=== PATIENT | male | born 1960 | race Two or more races ===

== ENCOUNTER 2018-04-24 23:25 | Inpatient (IN) | payer MEDICAID ==
[~2018-04-24] VITALS: Ht 177.8 cm; Wt 77.1 kg
--- NOTE | 2018-04-24 23:29 | Emergency Room Report ---
History of Present Illness General Chief Complaint: Seizure Source: Family Member, EMS Present Illness HPI Is a 58-year-old male presented after possible new onset seizure. Patient had no prior history of seizure disorder patient seizure for several minutes patient had prior history of alcohol abuse . Patient was brought in by EMS with spouse.Patient normally drinks daily. Patient been noted to have increased generalized tonic-clonic seizure. Patient reportedly had been trying to slow down his alcohol intake.Patient noted to have emesis earlier today with some red discoloration but no definite blood. Allergies: Coded Allergies: No Known Allergies (Unverified , 04/24/18) Patient History Past Medical History: see triage record Reviewed Nursing Documentation: PMH: Agreed; PSxH: Agreed Nursing Documentation-PMH Hx Hypertension: Yes Hx Diabetes: Yes History Of Psychiatric Problem: Yes - ETOH abuse Review of Systems All Other Systems: negative except mentioned in HPI Physical Exam Vital Signs Date Time Temp Pulse Resp B/P (MAP) Pulse Ox O2 Delivery O2 Flow Rate FiO2 04/24/18 23:15 112 18 178/101 99 Room Air Sp02 EP Interpretation: reviewed, normal General Appearance: alert, Chronically Ill Head: atraumatic ENT: normal ENT inspection, hearing grossly normal, normal voice Neck: normal inspection, full range of motion, supple, no bony tend Respiratory: normal inspection, lungs clear, normal breath sounds, no respiratory distress, no retraction, no wheezing Cardiovascular #1: no edema, tachycardia Gastrointestinal: normal inspection, normal bowel sounds, non tender, soft, no guarding, no hernia Genitourinary: no CVA tenderness Musculoskeletal: normal inspection, back normal, normal range of motion Neurologic: responsive, speech normal, other - postictal Psychiatric: normal inspection, judgement/insight normal, mood/affect normal Skin: normal inspection, normal color, no rash Medical Decision Making Diagnostic Impression: Primary Impression: Epileptic seizure, generalized Additional Impressions: Alcohol abuse Alcohol withdrawal Anemia ER Course Patient presented for seizure. Differential diagnosis include was not limited to alcohol withdrawal, syncope, electrolyte abnormality among others. Because of complexity of patient's case laboratory testing and imaging studies were ordered. CT imaging of the head showed no evidence of acute intracranial hemorrhage. Patient was given IV Ativan as well as IV Keppra. Patient was started on IV fluids. Patient noted to have no prior history of seizures. This is likely due to alcohol withdrawal however patient is also noted to be somewhat anemic. He was given IV Pepcid.Patient's was consented for blood. Labs Test 04/24/18 23:40 White Blood Count 8.8 K/UL (4.8-10.8) Red Blood Count 2.57 M/UL (4.70-6.10) Hemoglobin 7.9 G/DL (14.2-18.0) Hematocrit 23.7 % (42.0-52.0) Mean Corpuscular Volume 92 FL (80-99) Mean Corpuscular Hemoglobin 30.7 PG (27.0-31.0) Mean Corpuscular Hemoglobin Concent 33.3 G/DL (32.0-36.0) Red Cell Distribution Width 12.0 % (11.6-14.8) Platelet Count 193 K/UL (150-450) Mean Platelet Volume 6.2 FL (6.5-10.1) Neutrophils (%) (Auto) % (45.0-75.0) Lymphocytes (%) (Auto) % (20.0-45.0) Monocytes (%) (Auto) % (1.0-10.0) Eosinophils (%) (Auto) % (0.0-3.0) Basophils (%) (Auto) % (0.0-2.0) Prothrombin Time 10.9 SEC (9.30-11.50) Prothromb Time International Ratio 1.0 (0.9-1.1) Activated Partial Thromboplast Time 25 SEC (23-33) Sodium Level 136 MMOL/L (136-145) Potassium Level 4.4 MMOL/L (3.5-5.1) Chloride Level 103 MMOL/L (98-107) Carbon Dioxide Level 24 MMOL/L (21-32) Anion Gap 9 mmol/L (5-15) Blood Urea Nitrogen 15 mg/dL (7-18) Creatinine 1.6 MG/DL (0.55-1.30) Estimat Glomerular Filtration Rate 44.8 mL/min (>60) Glucose Level 89 MG/DL (74-106) Calcium Level 8.9 MG/DL (8.5-10.1) Total Bilirubin 0.7 MG/DL (0.2-1.0) Aspartate Amino Transf (AST/SGOT) 25 U/L (15-37) Alanine Aminotransferase (ALT/SGPT) 19 U/L (12-78) Alkaline Phosphatase 96 U/L (46-116) Troponin I 0.020 ng/mL (0.000-0.056) Total Protein 7.1 G/DL (6.4-8.2) Albumin 3.2 G/DL (3.4-5.0) Globulin 3.9 g/dL Albumin/Globulin Ratio 0.8 (1.0-2.7) Serum Alcohol < 3 mg/dL EKG Diagnostic Results Rate: tachycardiac Rhythm: NSR ST Segments: no acute changes Last Vital Signs Date Time Temp Pulse Resp B/P (MAP) Pulse Ox O2 Delivery O2 Flow Rate FiO2 04/24/18 23:15 112 18 178/101 99 Room Air Status: unchanged Disposition: ADMITTED INPATIENT Condition: Serious Aquilino Diehl MD Apr 24, 2018 23:29
[2018-04-24 23:30] VITALS: BP 178/101
[2018-04-24] MEDS ORDERED: levETIRAcetam 500mg/NS100ml 100 ML IVPB ONE ×2 (23:30→23:46)
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
[2018-04-25] VITALS (12 sets, daily range): BP systolic 127–173; BP diastolic 68–93
[2018-04-25 00:24] LABS: HEMATOCRIT 23.7 % (42.0-52.0); HEMOGLOBIN 7.9 G/DL (14.2-18.0); MEAN CORPUSCULAR VOLUME 92 FL (80-99); PLATELET COUNT 193 K/UL (150-450); RED BLOOD COUNT 2.57 M/UL (4.70-6.10); WHITE BLOOD COUNT 8.8 K/UL (4.8-10.8)
[2018-04-25 00:34] LABS: ANION GAP 9 mmol/L (5-15); BLOOD UREA NITROGEN 15 mg/dL (7-18); CALCIUM 8.9 MG/DL (8.5-10.1); CARBON DIOXIDE 24 MMOL/L (21-32); CHLORIDE 103 MMOL/L (98-107); CREATININE 1.6 MG/DL (0.55-1.30); POTASSIUM 4.4 MMOL/L (3.5-5.1); SODIUM 136 MMOL/L (136-145)
[2018-04-25 00:39] LABS: ALANINE AMINOTRANSFERASE 19 U/L (12-78); ALBUMIN 3.2 G/DL (3.4-5.0); ALBUMIN/GLOBULIN RATIO 0.8 (1.0-2.7); ALKALINE PHOSPHATASE 96 U/L (46-116); ASPARTATE AMINO TRANSFERASE 25 U/L (15-37); BILIRUBIN,TOTAL 0.7 MG/DL (0.2-1.0)
[2018-04-25] MEDS ORDERED: LORazepam Inj 2mg/ml 1ml ONE ×3 (02:29→05:00)
[2018-04-25] MEDS ORDERED: LORazepam Inj 2mg/ml 1ml IV ONE ×2 (03:30→04:45)
[2018-04-25 04:11] LABS: COLOR,URINE PALE YELLOW
[2018-04-25 04:12] LABS: APPEARANCE,URINE CLEAR; BILIRUBIN, URINE NEGATIVE (NEGATIVE); GLUCOSE, URINE (UA) NEGATIVE (NEGATIVE); KETONES,URINE 1+ (NEGATIVE); LEUKOCYTE ESTERASE ,URINE NEGATIVE (NEGATIVE); NITRITE,URINE NEGATIVE (NEGATIVE); PROTEIN,URINE 3+ (NEGATIVE); UROBILINOGEN,URINE NORMAL MG/DL (0.0-1.0)
[2018-04-25 04:44] LABS: HEMATOCRIT 22.2 % (42.0-52.0); HEMOGLOBIN 7.3 G/DL (14.2-18.0); MEAN CORPUSCULAR VOLUME 92 FL (80-99); PLATELET COUNT 161 K/UL (150-450); RED CELL DISTRIBUTION WIDTH 12.3 % (11.6-14.8); WHITE BLOOD COUNT 8.9 K/UL (4.8-10.8)
--- NOTE | 2018-04-25 07:27 | NUR ---
HAND-OFF: Report given to Kolby Moncada RN. Patient in stable condition. Plan of care endorsed.
--- NOTE | 2018-04-25 08:31 | NUR ---
ED Nurse Note: Received patient sleeping in bed. VSS but tachycardiac. skin clean and warm to touch.
--- NOTE | 2018-04-25 08:32 | NUR ---
ED Nurse Note: HERNESTO made aware that blood has not been ready yet. will follow up again.
--- NOTE | 2018-04-25 08:47 | NUR ---
ED Nurse Note: Reminded ERMD that we have not received admitting orders yet. ERMD will contact admitting doctor.
--- NOTE | 2018-04-25 09:10 | NUR ---
ED Nurse Note: Blood transfusion is about to initiate and body Temp was 99.6F. Informed ERMD and received verbal order that it is ok to start blood transfusion.
--- NOTE | 2018-04-25 09:15 | NUR ---
ED Nurse Note: blood transfusion initated in stable condition.
--- NOTE | 2018-04-25 09:20 | NUR ---
ED Nurse Note: Received TO from Dr. Joaquin. Ativan 1mg IVP Q2H. NPO except medications, Banana bag 75cc/hr, DVT prophylaxis, Repeat CBC if Hgb <8 contat certified alcohol and drug counselor, if pt has another seizure, contact Dr. Caicedo. Dr. Joaquin was informed that pt is getting blood transfusion at this moment and received verbal order that it is ok to start orders after blood transfusion completed.
--- NOTE | 2018-04-25 09:30 | NUR ---
ED Nurse Note: after 15 minutes of blood transfusion assessment done. 99.6F, 118/min, 139/71, 100% with room air. pt stable. blood transfusion rate increased to 200ml/hr.
--- NOTE | 2018-04-25 09:45 | NUR ---
ED Nurse Note: 98.3F, 167/77, 112/min, 96% with room air, 23/min. pt stable with blood transfusion rating at 200ml/hr.
--- NOTE | 2018-04-25 09:47 | NUR ---
ED Nurse Note: PA came down and assessed pt. PA was informed that nurse received orders from dr. Joaquin and will start orders after blood transfusion completed.
--- NOTE | 2018-04-25 10:00 | NUR ---
ED Nurse Note: halliether at bedside and was updated on pt's condition and how he got brought in.
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
--- NOTE | 2018-04-25 10:45 | NUR ---
ED Nurse Note: 1st unit of blood transfusion completed without adverse reaction. VS 98.6F, 162/91, 21/min, 95% with room air, 113/min. second bag of blood will be picked up.
[2018-04-25] MEDS ORDERED: LORazepam Inj 2mg/ml 1ml IV PRN (11:08)
--- NOTE | 2018-04-25 11:44 | NUR ---
ED Nurse Note: Checked rectal temp prior to initiating second unit of blood and it was 103F. reported to ERMD and received verbal order to hold second bag of blood. will administrate Tylenol via rectal.
[2018-04-25] MEDS ORDERED: Acetaminophen 650 MG SUPP RECTAL ONE (11:45)
--- NOTE | 2018-04-25 12:30 | NUR ---
ED Nurse Note: pt transferred to hospital bed from [facility] due to holding pt in ED.
--- NOTE | 2018-04-25 12:50 | NUR ---
ED Nurse Note: Left message to Dr. Joaquin that we are holding second bag of blood transfusion due to rectal temp 102.7F and if he wants nurse to do another CBC now and BS was 74 so if nurse can start any ivf. waiting for the response.
--- NOTE | 2018-04-25 13:04 | NUR ---
ED Nurse Note: Rechecked rectal temp again. 101.2F noted.
--- NOTE | 2018-04-25 13:32 | NUR ---
ED Nurse Note: Received TO from Dr. Joaquin to not to give the second bag of blood and start 1/2 NS 65cc per hour, repeat CBC now and let doctor Mirza know that pt developed fever after 1st bag of blood transfusion. will input the orders and carry them.
--- NOTE | 2018-04-25 13:50 | NUR ---
ED Nurse Note: Dr. Ortiz ID came and assessed pt. No new order received.
[2018-04-25] MEDS ORDERED: Thiamine 100mg IVPB (Q24H) IVPB ONE ×2 (14:00)
[2018-04-25] MEDS ORDERED: Folic Acid 1 MG, Magnesium Sulfate 2,000 MG, Multivitamin - 12 Injection 10 ML in Sodiu... IV ONE (14:00)
[2018-04-25] MEDS ORDERED: cefTRIAXone 1 GM in NS 55 ML IVPB ONE (14:00)
--- NOTE | 2018-04-25 14:15 | NUR ---
ED Nurse Note: Dr. Joaquin gave verbal order to hold banana bag for this moment. will return the medication back to pharmacy.
--- NOTE | 2018-04-25 14:31 | NUR ---
ED Nurse Note: Received verbal order to cancel Vit B1 iv by Dr. Joaquin.
--- NOTE | 2018-04-25 14:40 | NUR ---
ED Nurse Note: Contacted Dr Leal, steward/stewardess dining room to report pt developed fever after 1st bag of blood transfusion and his office gave me his number [phone]. called him and did not answer so left message. wating for him to respond.
[2018-04-25 14:43] LABS: BASOPHILS % (AUTO) 0.7 % (0.0-2.0); HEMATOCRIT 26.2 % (42.0-52.0); HEMOGLOBIN 8.7 G/DL (14.2-18.0); LYMPHOCYTES % (AUTO) 11.5 % (20.0-45.0); MEAN CORPUSCULAR VOLUME 94 FL (80-99); MONOCYTES % (AUTO) 9.7 % (1.0-10.0); NEUTROPHILS % (AUTO) 78.1 % (45.0-75.0); PLATELET COUNT 156 K/UL (150-450); RED BLOOD COUNT 2.79 M/UL (4.70-6.10); RED CELL DISTRIBUTION WIDTH 11.9 % (11.6-14.8); WHITE BLOOD COUNT 11.1 K/UL (4.8-10.8)
--- NOTE | 2018-04-25 14:51 | NUR ---
ED Nurse Note: Dr. Armendariz at bedside talking to the girlfriend.
--- NOTE | 2018-04-25 14:59 | NUR ---
ED Nurse Note: Report given to SHARLA Shoemaker.
--- NOTE | 2018-04-25 15:16 | NUR ---
ED Nurse Note: SHARLA Rasmussen received pt.
--- NOTE | 2018-04-25 15:22 | NUR ---
ADMISSION NOTES: Pt arrived to the unit via hospital bed, Pt has a RT F 22 running fluids of 1/2 NS at 65/hr will advise Md Rojas if he wants to continue. Pt arrived to the unit asleep as his eyes closed and he is breathing at 16 BPM, girl friend at bedside, girl friend states he drinks 2 beers a day and smoke 2 joints a day. Vitals WNL, girl friend states he is usually calm cooperative and vocal. According to ED they gave him 2mg of ativan PO.
--- NOTE | 2018-04-25 15:27 | NUR ---
ED Nurse Note: Dr. Leal responded to ER to get a blood transfusion reaction order. informed SHARLA Rasmussen the nurse who received pt to follow up.
[2018-04-25] MEDS: NovoLOG Insulin Flexpen SUBQ SCH ×2 (16:30→21:00)
--- NOTE | 2018-04-25 19:30 | NUR ---
NURSE NOTES: Report receieved from SHARLA Garrido. Pt is lying comfortably in semi-fowlers with no signs of distress. Pt is lethargic, respirations even and unlabored on room air. IV sites are patent and intact. Seizure precautions in place. Bed is at lowest position, brakes engaged, siderails x2, bed alarm on, and call light within reach. Pt is in stable condition; will continue to monitor.
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
--- NOTE | 2018-04-25 20:41 | NUR ---
NURSE NOTES: Pt's O2 sat is 90% on room air. Applied 1 L NC. Temp is also increased at 102 axillary without order for PRN tylenol. Left message with Dr. Joaquin regarding temperature; awaiting response.
--- NOTE | 2018-04-25 20:53 | NUR ---
NURSE NOTES: Dr. Joaquin ordered tylenol 650 PO or TX if patient cannot take oral medication. Orders noted and carried out. Also left message with Dr. Lauryn Ortiz regarding patient temp; awaiting response.
[2018-04-25] MEDS: cefTRIAXone 2 GM in D5W 55 ML IVPB SCH (21:28)
[2018-04-25] MEDS: Pantoprazole Inj IVP SCH (21:28)
[2018-04-25] MEDS: Acetaminophen 650 MG SUPP RECTAL PRN (21:29)
[2018-04-25] MEDS ORDERED: Vancomycin 1.5gm Premix IVPB ONE (22:00)
--- NOTE | 2018-04-25 23:52 | NUR ---
NURSE NOTES: Pt's temp still elevated at 102.5 axillary. Ice packs put under patient's arms. Too early to give tylenol to patient. Spoke with Dr. German Ortiz regarding pt's temperature throughout the night. No new orders given.
[2018-04-26] VITALS (7 sets, daily range): BP systolic 130–158; BP diastolic 71–96
[2018-04-26] MEDS: Acetaminophen 650 MG SUPP RECTAL PRN (01:33)
--- NOTE | 2018-04-26 02:47 | NUR ---
HAND-OFF: Report given to SHARLA Landa. Pt is in stable condition; plan of care endorsed.
--- NOTE | 2018-04-26 02:50 | NUR ---
NURSE NOTES: Received report from Marcela Hairston RN. Patient in bed asleep with no S/S of acute pain or distress noted with family at bedside asleep. Kept clean, dry and comfortable in bed. IV line intact and patent SL, placed on continuous cardiac monitoring per protocol. 02 at 95-96% on RA with no S/S of respiratory distress. Safety precaution in place; siderails x3 up, call light within reach, bed in lowest position, brakes and alarm on at all times. Needs and wants anticipated and attended. Will continue plan of care and monitor for any changes noted
[2018-04-26] MEDS: NovoLOG Insulin Flexpen SUBQ SCH ×4 (06:28→20:37)
[2018-04-26 06:40] LABS: BASOPHILS % (AUTO) 0.7 % (0.0-2.0); HEMATOCRIT 25.9 % (42.0-52.0); HEMOGLOBIN 8.6 G/DL (14.2-18.0); LYMPHOCYTES % (AUTO) 6.1 % (20.0-45.0); MEAN CORPUSCULAR VOLUME 94 FL (80-99); MONOCYTES % (AUTO) 9.3 % (1.0-10.0); NEUTROPHILS % (AUTO) 83.8 % (45.0-75.0); PLATELET COUNT 157 K/UL (150-450); RED BLOOD COUNT 2.76 M/UL (4.70-6.10); RED CELL DISTRIBUTION WIDTH 12.4 % (11.6-14.8); WHITE BLOOD COUNT 14.9 K/UL (4.8-10.8)
[2018-04-26 06:47] LABS: INR 1.1 (0.9-1.1)
--- NOTE | 2018-04-26 07:25 | NUR ---
HAND-OFF: Report given to Pavel Priest RN. Patient in bed asleep with family at bedside. Patient in stable condition, endorsed plan of care
[2018-04-26 07:26] LABS: ALANINE AMINOTRANSFERASE 22 U/L (12-78); ALBUMIN 3.3 G/DL (3.4-5.0); ALBUMIN/GLOBULIN RATIO 0.8 (1.0-2.7); ALKALINE PHOSPHATASE 88 U/L (46-116); ANION GAP 15 mmol/L (5-15); ASPARTATE AMINO TRANSFERASE 63 U/L (15-37); BILIRUBIN,TOTAL 1.4 MG/DL (0.2-1.0); BLOOD UREA NITROGEN 30 mg/dL (7-18); CARBON DIOXIDE 19 MMOL/L (21-32); CHLORIDE 103 MMOL/L (98-107); CREATININE 2.1 MG/DL (0.55-1.30); FERRITIN 373 NG/ML (8-388); POTASSIUM 4.2 MMOL/L (3.5-5.1); SODIUM 137 MMOL/L (136-145)
[2018-04-26 07:28] LABS: BILIRUBIN,DIRECT 0.3 MG/DL (0.0-0.3)
--- NOTE | 2018-04-26 07:31 | NUR ---
NURSE NOTES: Received report from SHARLA Landa. Patient in bed resting, patient responding to verbal stimulation, ST with HR 122. Patient on room air, no active s/s cardiac, respiratory distress noticed at this time. Patient has fever of 102.4 at this time, endorsed patient was having fever of [address] Lauryn Ortiz and Dr. Joaquin made aware. Patient on cooling mattress. Bed in lowest position, side rails upx3, call light within reach, family member at bed side. Will continue to monitor.
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
[2018-04-26 07:53] LABS: % IRON SATURATION 29 % (15-50); IRON 74 ug/dL (50-175); TOTAL IRON BINDING CAPACITY 252 ug/dL (250-450)
[2018-04-26] MEDS: Pantoprazole Inj IVP SCH ×2 (08:33→20:35)
[2018-04-26] MEDS: cefTRIAXone 2 GM in D5W 55 ML IVPB SCH ×2 (08:33→20:35)
[2018-04-26] MEDS ORDERED: Pantoprazole Inj IVP ONE (09:00)
--- NOTE | 2018-04-26 09:32 | Diagnostic Imaging Report ---
Indications: Altered mental status and seizures Technique: Spiral acquisitions obtained through the brain. Angled axial and coronal 5 x 5 mm slices were reconstructed. Total dose length product 1304 mGycm. CTDI vol(s) 70 mGy. Dose reduction achieved using automated exposure control Comparison: None. Findings: There is some image degradation due to motion artifact there is mild age-related prominence of the ventricles and extra-axial CSF spaces. There is mild periventricular deep white matter low-attenuation. No acute intracranial hemorrhage or edema. No mass effect nor midline shift. Intact calvarium. Visualized orbits and sinuses are unremarkable. Impression: Somewhat limited exam, due to motion artifact Mild age-related volume loss and periventricular white matter chronic ischemic changes, somewhat striking for patient's age. Negative for acute intracranial bleed or mass effect This agrees with the preliminary interpretation provided overnight by [facility] teleradiology service. The CT scanner at [facility] is accredited by the [employer] and the scans are performed using protocols designed to limit radiation exposure to as low as reasonably achievable to attain images of sufficient resolution adequate for diagnostic evaluation.
[2018-04-26] MEDS ORDERED: Vancomycin 750mg/NS 275ml IVPB SCH ×2 (10:00)
--- NOTE | 2018-04-26 10:41 | Infectious Diseases Prog Note ---
Assessment/Plan Assessment/Plan antibiotics : ceftriaxone A 1. fever 2. increasing leucocytosis 3. ? aspiration pneumonia 4. seizures 5. renal failure P 1. continue ceftriaxone 2. start flagyl 3. sputum cultures 4. cxr Subjective Constitutional: Denies: fever, chills Respiratory: Denies: shortness of breath, dry cough Gastrointestinal/Abdominal: Reports: nausea, vomiting, diarrhea Musculoskeletal: Denies: pain Allergies: Coded Allergies: No Known Allergies (Unverified , 04/24/18) Objective Vital Signs Last 24 Hour Vital Signs Date Time Temp Pulse Resp B/P (MAP) Pulse Ox O2 Delivery O2 Flow Rate FiO2 04/26/18 09:03 101.1 04/26/18 09:00 Room Air 04/26/18 08:00 102.4 100 20 130/71 (90) 94 04/26/18 04:00 98.8 124 20 152/86 (108) 95 04/26/18 04:00 122 04/26/18 02:03 102.0 04/26/18 00:00 102.0 118 20 135/81 (99) 95 04/26/18 00:00 115 04/25/18 21:00 Room Air 04/25/18 20:07 101.8 111 21 155/89 (111) 91 04/25/18 20:00 108 04/25/18 16:00 104 04/25/18 15:48 Room Air 04/25/18 15:00 101.7 103 24 169/92 96 Room Air 04/25/18 15:00 101.7 103 24 169/92 96 Room Air 04/25/18 14:49 102.0 103 18 166/79 96 Room Air 04/25/18 12:45 101.7 116 18 167/74 96 04/25/18 12:27 102.7 04/25/18 10:45 98.6 113 21 162/91 96 Room Air Height (Feet): 5 Height (Inches): 10.00 Weight (Pounds): 165 Respiratory/Chest: lungs clear Cardiovascular: normal rate, regular rhythm, no gallop/murmur Abdomen: soft, non tender Extremities: no edema Laboratory Tests Test 04/25/18 14:15 04/25/18 19:45 04/25/18 20:06 04/26/18 05:20 White Blood Count 11.1 K/UL (4.8-10.8) H 14.9 K/UL (4.8-10.8) H Red Blood Count 2.79 M/UL (4.70-6.10) L 2.76 M/UL (4.70-6.10) L Hemoglobin 8.7 G/DL (14.2-18.0) L 8.6 G/DL (14.2-18.0) L Hematocrit 26.2 % (42.0-52.0) L 25.9 % (42.0-52.0) L Mean Corpuscular Volume 94 FL (80-99) 94 FL (80-99) Mean Corpuscular Hemoglobin 31.0 PG (27.0-31.0) 31.2 PG (27.0-31.0) H Mean Corpuscular Hemoglobin Concent 33.1 G/DL (32.0-36.0) 33.3 G/DL (32.0-36.0) Red Cell Distribution Width 11.9 % (11.6-14.8) 12.4 % (11.6-14.8) Platelet Count 156 K/UL (150-450) 157 K/UL (150-450) Mean Platelet Volume 6.4 FL (6.5-10.1) L 6.4 FL (6.5-10.1) L Neutrophils (%) (Auto) 78.1 % (45.0-75.0) H 83.8 % (45.0-75.0) H Lymphocytes (%) (Auto) 11.5 % (20.0-45.0) L 6.1 % (20.0-45.0) L Monocytes (%) (Auto) 9.7 % (1.0-10.0) 9.3 % (1.0-10.0) Eosinophils (%) (Auto) 0.0 % (0.0-3.0) 0.0 % (0.0-3.0) Basophils (%) (Auto) 0.7 % (0.0-2.0) 0.7 % (0.0-2.0) Stool Occult Blood Negative (NEGATIVE) Sickle Cell Screen Pending Hemoglobin A Pending Hemoglobin A2 Pending Hemoglobin C Pending Hemoglobin F () Pending Hemoglobin S Pending Variant Hemoglobin Pending Hemoglobin Electrophoresis Interp Pending Hemoglobin Interpretation Pending Hemoglobin Solubility Pending Haptoglobin Pending Fibrinogen 333 mg/dL (200-400) Lactate Dehydrogenase 235 U/L (81-234) H HIV (1&2) Antibody Rapid Negative (NEGATIVE) Reticulocyte Count Pending Prothrombin Time 11.4 SEC (9.30-11.50) Prothromb Time International Ratio 1.1 (0.9-1.1) Activated Partial Thromboplast Time 20 SEC (23-33) L Sodium Level 137 MMOL/L (136-145) Potassium Level 4.2 MMOL/L (3.5-5.1) Chloride Level 103 MMOL/L (98-107) Carbon Dioxide Level 19 MMOL/L (21-32) L Anion Gap 15 mmol/L (5-15) Blood Urea Nitrogen 30 mg/dL (7-18) H Creatinine 2.1 MG/DL (0.55-1.30) H Estimat Glomerular Filtration Rate 32.7 mL/min (>60) Glucose Level 133 MG/DL (74-106) H Calcium Level 9.0 MG/DL (8.5-10.1) Magnesium Level 1.5 MG/DL (1.8-2.4) L Iron Level 74 ug/dL (50-175) Total Iron Binding Capacity 252 ug/dL (250-450) Percent Iron Saturation 29 % (15-50) Unsaturated Iron Binding 178 ug/dL (112-346) Ferritin 373 NG/ML (8-388) Total Bilirubin 1.4 MG/DL (0.2-1.0) H Direct Bilirubin 0.3 MG/DL (0.0-0.3) Aspartate Amino Transf (AST/SGOT) 63 U/L (15-37) H Alanine Aminotransferase (ALT/SGPT) 22 U/L (12-78) Alkaline Phosphatase 88 U/L (46-116) Total Protein 7.6 G/DL (6.4-8.2) Albumin 3.3 G/DL (3.4-5.0) L Globulin 4.3 g/dL Albumin/Globulin Ratio 0.8 (1.0-2.7) L Carcinoembryonic Antigen Pending Vitamin B12 Level 322 PG/ML (193-986) Folate 17.6 NG/ML (8.6-58.9) Thyroid Stimulating Hormone (TSH) 0.851 uiU/mL (0.358-3.740) Free Thyroxine 1.19 NG/DL (0.76-1.46) Current Medications Medications (Trade) Dose Ordered Sig/Bj Route PRN Reason Start Time Stop Time Status Last Admin Dose Admin Acetaminophen (Tylenol) 650 mg Q4H PRN ORAL Mild Pain/Temp > 100.5 04/25/18 21:00 05/25/18 20:59 04/26/18 08:33 Acetaminophen (Tylenol) 650 mg Q4H PRN RECTAL Mild Pain (Pain Scale 1-3) 04/25/18 21:00 05/25/18 20:59 04/26/18 01:33 Ceftriaxone Sodium 2 gm/ Dextrose 55 ml @ 110 mls/hr EVERY 12 HOURS IVPB 04/25/18 21:00 05/02/18 20:59 04/26/18 08:33 Dextrose (Dextrose 50%) 25 ml Q30M PRN IV Hypoglycemia 04/25/18 15:49 05/25/18 15:48 Dextrose (Dextrose 50%) 50 ml Q30M PRN IV Hypoglycemia 04/25/18 15:49 05/25/18 15:48 Insulin Aspart (NovoLOG) BEFORE MEALS AND HS SUBQ 04/25/18 16:30 05/25/18 16:29 Lorazepam (Ativan 2mg/ml 1ml) 1 mg Q2H PRN IV alcohol withdraw, seizure 04/25/18 11:08 05/02/18 11:07 Pantoprazole (Protonix) 40 mg EVERY 12 HOURS IVP 04/25/18 21:00 05/25/18 20:59 04/26/18 08:33 Sodium Chloride 1,000 ml @ 65 mls/hr [id number] IV 04/25/18 14:30 05/25/18 14:29 04/26/18 05:56 Vancomycin HCl (Vanco rx to dose) 1 ea DAILY PRN MISC Per rx protocol 04/25/18 19:30 05/25/18 19:29 Jermaine Enrique MD Apr 26, 2018 10:41
[2018-04-26] MEDS: metroNIDAZOLE 500mg tab ORAL SCH ×2 (11:18→21:31)
--- NOTE | 2018-04-26 11:30 | NUR ---
NURSE NOTES: Dr. Rojas at nursing station, made aware mg level of 1.5 and stated will take care. No order given at this time. Will continue to monitor.
--- NOTE | 2018-04-26 13:13 | Consultation ---
DATE OF CONSULTATION: 04/25/2018 ATTENDING PHYSICIAN: Farhan Joaquin M.D. REASON FOR CONSULT: Fever. HISTORY OF PRESENT ILLNESS: This is a 58-year-old male admitted last night because of tonic-clonic seizure. He was found to have severe anemia and tachycardia. After blood transfusion developed fever of 102.7. He has history of alcohol abuse. The patient tried recently to cut it back. The patient is lethargic, unresponsive. PAST MEDICAL HISTORY: He has history of hip fracture in the right side, has history of cholecystectomy. ALLERGIES: No known drug allergies. MEDICATIONS: Protonix, folic acid, magnesium sulfate, multivitamin, thiamine, lorazepam, sodium chloride. SOCIAL HISTORY: He is single. He lives with his girlfriend that is present in the hospital. Drink two can of beer daily tapering down from eight cans packs . He smokes marijuana. REVIEW OF SYSTEMS: Unobtainable. PHYSICAL EXAMINATION: VITAL SIGNS: Temperature 99.3, pulse 117, blood pressure 127/93. GENERAL: Appearance in no acute distress. Stating snoring. HEAD AND NECK: Pain conjunctiva. HEART: Tachycardic. LUNGS: Clear. ABDOMEN: Soft, nontender, nondistended. EXTREMITY: No edema. NEUROLOGIC: Nonresponsive. LABORATORY DATA: Sodium 136, potassium 4.4, chloride 103, bicarbonate 24, BUN 15, creatinine 1.6. AST, ALT, bilirubin are within normal limits. Albumin 2.2. Urine toxicology was positive for marijuana. Serum alcohol was less than 3, hemoglobin 7.3, hematocrit 22.2, platelets 161, WBC 8.9. UA showed, urineWBC of 0 to 2, rbc of 20 to 10. Blood 4+. IMPRESSION: Systemic inflammatory response syndrome or sepsis. The patient has fever and tachycardia and new onset seizure, acute renal failure, anemia, hypertension, alcohol abuse likely with withdrawal. RECOMMENDATION: We will start the patient on Rocephin. We will follow up the cultures at the end of my exam. I thank Dr. Joaquin for involving me in the care of this patient. James Ortiz M.D. DR: Nirav JOB#: [id number] CC: BREE
--- NOTE | 2018-04-26 13:14 | History and Physical Report ---
DATE OF ADMISSION: 04/25/2018 NOTE: POOR AUDIO HISTORY OF PRESENT ILLNESS: The patient comes in with new onset of seizures, history of alcohol abuse, initial slight tachycardia, low hemoglobin, azotemia. The patient has history of alcohol abuse, history of fever, and according to the girlfriend, also had tremor jerking whole body, lasted for 15 minutes, and also vomiting and was brought into the hospital. The patient is still lethargic . PAST MEDICAL HISTORY: NIDDM, hypertension, and kidney stone. PAST SURGICAL HISTORY: Hip surgery, kidney stone removed. ALLERGIES: No known allergies. MEDICATIONS: Unable to obtain. SOCIAL HISTORY: He has history of drug and alcohol abuse and history of smoking. REVIEW OF SYSTEMS: Unable to obtain, the patient is lethargic. PHYSICAL EXAMINATION: VITAL SIGNS: Temperature is , pulse 116, blood pressure 167/74. HEENT: PERRLA. CHEST: Clear to auscultation CARDIOVASCULAR: Regular rate and rhythm. GASTROINTESTINAL: Soft, nontender, and nondistended. No organomegaly. EXTREMITIES: No edema. Reflexes are equal on both sides. NEUROLOGIC: The patient is lethargic; however, does groan and moan, responds to noxious stimuli. Does not follow neurological exam. . LABORATORY DATA: WBC of 8.8, hemoglobin 7.9, and platelets 93. Sodium 137, potassium 4.4, and creatinine 1.6. . ASSESSMENT AND PLAN: Altered mental status, seizure, anemia, fever, , and vomiting. I have asked Dr. Greenfield, Dr. Jarrett, Dr. James Ortiz, Dr. Caicedo, Dr. Quinn, and Dr. Rojas to see the patient for the above-mentioned diagnoses and treatment. We will defer the LP decision to the neurologist and Infectious Diseases. Farhan Joaquin M.D. DR: Mirta JOB#: [id number] CC:
--- NOTE | 2018-04-26 13:38 | Consultation ---
Consult Note Consult Note asked to evaluate for renal failure Patient admitted with Sz Is a 58-year-old male presented after possible new onset seizure. Patient had no prior history of seizure disorder patient seizure for several minutes patient had prior history of alcohol abuse . Patient was brought in by EMS with spouse.Patient normally drinks daily. Patient been noted to have increased generalized tonic-clonic seizure. Patient reportedly had been trying to slow down his alcohol intake.Patient noted to have emesis earlier today with some red discoloration but no definite blood. No Known Allergies (Unverified , 04/24/18) Hx Hypertension: Yes Hx Diabetes: Yes History Of Psychiatric Problem: Yes - ETOH abuse interviewed examined data reviewed Assessment/Plan Renal failure- ? Acute on Chronic Anemia HTN by History MJ abuse DM / Proteinuria : Nephropathy Fever , etiology? avoid Nephrotoxics keep BP and BS in check [facility] kidney 2D echo Urine studies Per orders Deon Rojas MD Apr 26, 2018 13:38
--- NOTE | 2018-04-26 14:46 | NUR ---
NURSE NOTES: MILO Colunga made aware patient vomited two time today 04/26/18. Per Keanu, hildafran 4 mg IVP prn q6h. Order noted, entered, carried out.
[2018-04-26] MEDS: Thiamine HCl 100 MG in D5W 55 ML IVPB SCH (14:55)
--- NOTE | 2018-04-26 16:31 | Diagnostic Imaging Report ---
Indication: Acute renal failure Technique: Grayscale and duplex images of the kidneys, retroperitoneum, and bladder were obtained. Comparison: none Findings: Right kidney measures 10.4 cm in length. Left kidney measures 10.6 cm in length. Both kidneys demonstrate normal echogenicity. No hydronephrosis. There is a 1.9 cm cyst coming off of the interpolar region of the right kidney. There is trace perinephric fluid on the left. Normal inferior vena cava. Bladder is normal. Calculi to prostate volume 25 mL Impression: Negative for hydronephrosis Trace left perinephric fluid. This is a nonspecific finding, could indicate renal inflammation Incidental finding right renal cyst.
--- NOTE | 2018-04-26 17:25 | Diagnostic Imaging Report ---
Indication: Cough Technique: One view of the chest Comparison: none Findings: Extensive infiltrate is seen throughout the left mid and lower lung. The right lung and bilateral pleural spaces are clear. The heart size is upper limits normal. Impression: Left mid and lower lung infiltrate, likely pneumonia. Correlate with clinical findings
--- NOTE | 2018-04-26 17:30 | NUR ---
NURSE NOTES: Patient void once , 300ml, during the shift, bladder scan done 0 ml post-void residual. Will continue to monitor.
--- NOTE | 2018-04-26 19:44 | NUR ---
HAND-OFF: Report given to SHRALA Gifford.
--- NOTE | 2018-04-26 19:45 | NUR ---
NURSE NOTES: Got report from Carmenza MAGDALENO. Pt in stable condition. No s/s of distress noted. Pt resting in bed comfortably. bed in low and locked position, call light within reach, bedside table within reach. continue to monitor.
--- NOTE | 2018-04-26 20:26 | General Progress Note ---
Assessment/Plan Problem List: (1) Anemia ICD Codes: D64.9 - Anemia, unspecified SNOMED: 037493299 (2) Alcohol abuse ICD Codes: F10.10 - Alcohol abuse, uncomplicated SNOMED: 54343237 (3) Epileptic seizure, generalized ICD Codes: G40.309 - Generalized idiopathic epilepsy and epileptic syndromes, not intractable, without status epilepticus SNOMED: 79444981 Status: progressing Assessment/Plan ams fever anemia etoh abuse LP decision per neuro and id s/p generlized seizure Subjective ROS Limited/Unobtainable: Yes Allergies: Coded Allergies: No Known Allergies (Unverified , 04/24/18) Objective Last 24 Hour Vital Signs Date Time Temp Pulse Resp B/P (MAP) Pulse Ox O2 Delivery O2 Flow Rate FiO2 04/26/18 18:42 97.5 04/26/18 16:00 98.6 110 22 153/81 (105) 95 04/26/18 16:00 110 04/26/18 12:00 100.5 110 20 158/96 (116) 94 04/26/18 12:00 108 04/26/18 09:00 Room Air 04/26/18 08:00 102.4 100 20 130/71 (90) 94 04/26/18 08:00 123 04/26/18 04:00 98.8 124 20 152/86 (108) 95 04/26/18 04:00 122 04/26/18 02:03 102.0 04/26/18 00:00 102.0 118 20 135/81 (99) 95 04/26/18 00:00 115 04/25/18 21:00 Room Air Intake and Output 04/25/18 04/26/18 18:59 06:59 Intake Total 880 ml Output Total 300 ml Balance 580 ml Intake Oral 0 ml IV Total 380 ml Blood Product 500 ml Output Urine Total 300 ml # Voids 1 2 # Bowel Movements 1 2 Laboratory Tests 04/26/18 05:20: White Blood Count 14.9H, Red Blood Count 2.76L, Hemoglobin 8.6L, Hematocrit 25.9L, Mean Corpuscular Volume 94, Mean Corpuscular Hemoglobin 31.2H, Mean Corpuscular Hemoglobin Concent 33.3, Red Cell Distribution Width 12.4, Platelet Count 157, Mean Platelet Volume 6.4L, Neutrophils (%) (Auto) 83.8H, Lymphocytes (%) (Auto) 6.1L, Monocytes (%) (Auto) 9.3, Eosinophils (%) (Auto) 0.0, Basophils (%) (Auto) 0.7, Reticulocyte Count 1.0, Prothrombin Time 11.4, Prothromb Time International Ratio 1.1, Activated Partial Thromboplast Time 20L , Sodium Level 137, Potassium Level 4.2, Chloride Level 103, Carbon Dioxide Level 19L, Anion Gap 15, Blood Urea Nitrogen 30H, Creatinine 2.1H, Estimat Glomerular Filtration Rate 32.7, Glucose Level 133H, Calcium Level 9.0, Magnesium Level 1.5L, Iron Level 74, Total Iron Binding Capacity 252, Percent Iron Saturation 29, Unsaturated Iron Binding 178, Ferritin 373, Total Bilirubin 1.4H, Direct Bilirubin 0.3, Aspartate Amino Transf (AST/SGOT) 63H, Alanine Aminotransferase (ALT/SGPT) 22, Alkaline Phosphatase 88, C-Reactive Protein, Quantitative 3.6H, Total Protein 7.6, Albumin 3.3L, Globulin 4.3, Albumin/ Globulin Ratio 0.8L, Carcinoembryonic Antigen [Pending], Vitamin B12 Level 322, Folate 17.6, Thyroid Stimulating Hormone (TSH) 0.851, Free Thyroxine 1.19 Height (Feet): 5 Height (Inches): 10.00 Weight (Pounds): 163 General Appearance: lethargic, confused Farhan Joaquin MD Apr 26, 2018 20:26
--- NOTE | 2018-04-26 21:51 | General Progress Note ---
Assessment/Plan Assessment/Plan Assessment and Recs: # Anemia of chronic disease due to underlying chronic medical issues, multifactorial --> Anemia workup has been reviewed, ferritin 373 --> No evidence of hemolysis is noted, peripheral smear has been reviewed. --> Hgb goal >7. Transfuse prn. --> Given 2 units prbc on 04/25/18, had a reaction, transfusion reaction ordered --> Epogen or iron at this time is not particularly indicated --> Medications have been reviewed --> gi recs appreciated # Anemia due to alcohol withdrawal/myelosuppresion --> Monitor for withdrawal symptoms --> thimaine, folic acid, ivf, ativan prn ordered # Leukocytosis/Elevated white blood cell count, unspecified likely related to underlying stress reaction, smoking, or underlying infection (especially if bandemia is noted) --> have reviewed peripheral smear and bandemia/neutrophilia noted --> continue antibiotics if they have been started by ID team --> monitor for resolution # Alcohol abuse --> rec cessation # Epileptic seizure, generalized --> as per neuro # Drug abuse The timing of this note does not necessarily reflect the time of the patient was seen. Greatly appreciate consultation! Subjective Constitutional: Denies: no symptoms, chills, diaphoresis, fever, malaise, weakness, other HEENT: Denies: no symptoms, eye pain, blurred vision, tearing, double vision, ear pain, ear discharge, nose pain, nose congestion, throat pain, throat swelling, mouth pain, mouth swelling, other Cardiovascular: Denies: no symptoms, chest pain, edema, irregular heart rate, lightheadedness, palpitations, syncope, other Respiratory: Denies: no symptoms, cough, orthopnea, shortness of breath, SOB with excertion, SOB at rest, sputum, stridor, wheezing, other Gastrointestinal/Abdominal: Denies: no symptoms, abdomen distended, abdominal pain, black stools, tarry stools, blood in stool, constipated, diarrhea, difficulty swallowing, nausea, poor appetite, poor fluid intake, rectal bleeding , vomiting, other Neurologic/Psychiatric: Denies: no symptoms, anxiety, depressed, emotional problems, headache, numbness, paresthesia, pre-existing deficit, seizure, tingling, tremors, weakness, other Endocrine: Denies: no symptoms, excessive sweating, flushing, intolerance to cold, intolerance to heat, increased hunger, increased thirst, increased urine, unexplained weight gain, unexplained weight loss, other Allergies: Coded Allergies: No Known Allergies (Unverified , 04/24/18) Subjective 04/26: awake, comfortable, no acute distress. Objective Last 24 Hour Vital Signs Date Time Temp Pulse Resp B/P (MAP) Pulse Ox O2 Delivery O2 Flow Rate FiO2 04/26/18 18:42 97.5 04/26/18 16:00 98.6 110 22 153/81 (105) 95 04/26/18 16:00 110 04/26/18 12:00 100.5 110 20 158/96 (116) 94 04/26/18 12:00 108 04/26/18 09:00 Room Air 04/26/18 08:00 102.4 100 20 130/71 (90) 94 04/26/18 08:00 123 04/26/18 04:00 98.8 124 20 152/86 (108) 95 04/26/18 04:00 122 04/26/18 02:03 102.0 04/26/18 00:00 102.0 118 20 135/81 (99) 95 04/26/18 00:00 115 Intake and Output 04/25/18 04/26/18 18:59 06:59 Intake Total 880 ml Output Total 300 ml Balance 580 ml Intake Oral 0 ml IV Total 380 ml Blood Product 500 ml Output Urine Total 300 ml # Voids 1 2 # Bowel Movements 1 2 Laboratory Tests 04/26/18 05:20: White Blood Count 14.9H, Red Blood Count 2.76L, Hemoglobin 8.6L, Hematocrit 25.9L, Mean Corpuscular Volume 94, Mean Corpuscular Hemoglobin 31.2H, Mean Corpuscular Hemoglobin Concent 33.3, Red Cell Distribution Width 12.4, Platelet Count 157, Mean Platelet Volume 6.4L, Neutrophils (%) (Auto) 83.8H, Lymphocytes (%) (Auto) 6.1L, Monocytes (%) (Auto) 9.3, Eosinophils (%) (Auto) 0.0, Basophils (%) (Auto) 0.7, Reticulocyte Count 1.0, Prothrombin Time 11.4, Prothromb Time International Ratio 1.1, Activated Partial Thromboplast Time 20L , Sodium Level 137, Potassium Level 4.2, Chloride Level 103, Carbon Dioxide Level 19L, Anion Gap 15, Blood Urea Nitrogen 30H, Creatinine 2.1H, Estimat Glomerular Filtration Rate 32.7, Glucose Level 133H, Calcium Level 9.0, Magnesium Level 1.5L, Iron Level 74, Total Iron Binding Capacity 252, Percent Iron Saturation 29, Unsaturated Iron Binding 178, Ferritin 373, Total Bilirubin 1.4H, Direct Bilirubin 0.3, Aspartate Amino Transf (AST/SGOT) 63H, Alanine Aminotransferase (ALT/SGPT) 22, Alkaline Phosphatase 88, C-Reactive Protein, Quantitative 3.6H, Total Protein 7.6, Albumin 3.3L, Globulin 4.3, Albumin/ Globulin Ratio 0.8L, Carcinoembryonic Antigen [Pending], Vitamin B12 Level 322, Folate 17.6, Thyroid Stimulating Hormone (TSH) 0.851, Free Thyroxine 1.19 04/26/18 21:00: Random Vancomycin Level 10.8 Height (Feet): 5 Height (Inches): 10.00 Weight (Pounds): 163 Objective PE: General Appearance: well appearing, no apparent distress, alert Head: normocephalic EENT: PERRL/EOMI, normal ENT inspection Neck: supple Respiratory: normal breath sounds, no respiratory distress Cardiovascular: normal rate Gastrointestinal: normal inspection, non tender, soft, normal bowel sounds, non -distended Rectal: deferred Genitourinary: deferred Musculoskeletal: normal inspection, back normal Mirza Greenfield MD Apr 26, 2018 21:50
[2018-04-26] MEDS ORDERED: Vancomycin 1gm/D5W 275ml IVPB ONE ×2 (23:00)
[2018-04-27] VITALS (10 sets, daily range): BP systolic 89–190; BP diastolic 19–131
[2018-04-27] MEDS: metroNIDAZOLE 500mg tab ORAL SCH ×3 (05:33→22:12)
[2018-04-27] MEDS: NovoLOG Insulin Flexpen SUBQ SCH ×4 (06:12→22:00)
[2018-04-27 07:13] LABS: HEMATOCRIT 25.7 % (42.0-52.0); HEMOGLOBIN 8.7 G/DL (14.2-18.0); MEAN CORPUSCULAR VOLUME 94 FL (80-99); PLATELET COUNT 141 K/UL (150-450); RED BLOOD COUNT 2.75 M/UL (4.70-6.10); RED CELL DISTRIBUTION WIDTH 12.2 % (11.6-14.8); WHITE BLOOD COUNT 16.9 K/UL (4.8-10.8)
[2018-04-27 07:14] LABS: ALANINE AMINOTRANSFERASE 24 U/L (12-78); ALBUMIN 2.9 G/DL (3.4-5.0); ALBUMIN/GLOBULIN RATIO 0.7 (1.0-2.7); ALKALINE PHOSPHATASE 79 U/L (46-116); ANION GAP 15 mmol/L (5-15); ASPARTATE AMINO TRANSFERASE 65 U/L (15-37); BILIRUBIN,TOTAL 0.7 MG/DL (0.2-1.0); BLOOD UREA NITROGEN 41 mg/dL (7-18); CALCIUM 8.9 MG/DL (8.5-10.1); CARBON DIOXIDE 19 MMOL/L (21-32); CHLORIDE 105 MMOL/L (98-107); CHOLESTEROL 127 MG/DL (< 200); CREATININE 2.5 MG/DL (0.55-1.30); GAMMA GLUTAMYL TRANSPEPTIDASE 42 U/L (5-85); HDL CHOLESTEROL 65 MG/DL (40-60); PHOSPHORUS 2.7 MG/DL (2.5-4.9); POTASSIUM 3.9 MMOL/L (3.5-5.1); SODIUM 138 MMOL/L (136-145); TRIGLYCERIDES 87 MG/DL (30-150)
--- NOTE | 2018-04-27 07:15 | NUR ---
HAND-OFF: Report given to Carmenza Nolasco. endorsed plan of care.
--- NOTE | 2018-04-27 07:36 | NUR ---
NURSE NOTES: Received report from SHARLA Gifford. Patient in bed resting, open eyes spontaneously. ST with HR 110, no active s/s cardiac, respiratory distress noticed at this time, denies pain at this time. Family member at bedside. Endorsed need of OB stool collection, urine collection, no fever during the night. IV on right wrist 22G, IV fluid running at prescribed rate, asymptomatic, patent, intact. Bed in lowest position, side rails padded and upx3, call light within reach. Will continue to monitor.
--- NOTE | 2018-04-27 07:51 | NUR ---
CASE MANAGEMENT:REVIEW 04/27/18 SI: SEIZURE. ETOH ABUSE 98.4 110 20 145/82 97% ON RA WBC+16.9 H/H-8.7/25.7 PLT-141 BUN+41 CR+2.5 IS: IV THIAMINE Q24 IVF@75/HR IV ROCEPHIN Q12 IV PROTONIX Q12 FLAGYL PO Q8HRS IV ATIVAN Q2HRS PRN SEIZURE OR WITHDRAWAL : TELEMETRY STATUS DCP: PATIENT IS FROM HOME
[2018-04-27] MEDS: cefTRIAXone 2 GM in D5W 55 ML IVPB SCH (08:45)
[2018-04-27] MEDS: Pantoprazole Inj IVP SCH (08:45)
--- NOTE | 2018-04-27 10:06 | Infectious Diseases Prog Note ---
Assessment/Plan Assessment/Plan antibiotics : ceftriaxone A 1. fever improving 2. increasing leucocytosis 3. ? aspiration pneumonia 4. seizures 5. renal failure P 1. continue flagyl 2. d/c ceftriaxone 3. start cefepime 4. will follow up cultures Subjective ROS Limited/Unobtainable: Yes Constitutional: Denies: fever, chills Respiratory: Reports: dry cough; Denies: shortness of breath Gastrointestinal/Abdominal: Denies: nausea, vomiting, diarrhea Musculoskeletal: Denies: pain Allergies: Coded Allergies: No Known Allergies (Unverified , 04/24/18) Objective Vital Signs Last 24 Hour Vital Signs Date Time Temp Pulse Resp B/P (MAP) Pulse Ox O2 Delivery O2 Flow Rate FiO2 04/27/18 06:37 110 04/27/18 04:00 98.4 100 20 145/82 (103) 97 04/27/18 04:00 112 04/27/18 00:00 110 04/26/18 23:31 99.0 103 20 136/72 (93) 96 04/26/18 22:38 98.2 04/26/18 21:00 Room Air 04/26/18 20:00 104 04/26/18 20:00 98.6 100 20 140/78 (98) 95 04/26/18 18:42 97.5 04/26/18 16:00 98.6 110 22 153/81 (105) 95 04/26/18 16:00 110 04/26/18 12:00 100.5 110 20 158/96 (116) 94 04/26/18 12:00 108 Height (Feet): 5 Height (Inches): 10.00 Weight (Pounds): 163 Respiratory/Chest: lungs clear Cardiovascular: normal rate, regular rhythm, no gallop/murmur Abdomen: soft, non tender Extremities: no edema Microbiology Date/Time Source Procedure Growth Status 04/25/18 20:06 Blood Blood Culture - Preliminary NO GROWTH AFTER 24 HOURS Resulted 04/25/18 19:50 Blood Blood Culture - Preliminary NO GROWTH AFTER 24 HOURS Resulted Laboratory Tests Test 04/26/18 21:00 04/27/18 04:50 Random Vancomycin Level 10.8 ug/mL White Blood Count 16.9 K/UL (4.8-10.8) H Red Blood Count 2.75 M/UL (4.70-6.10) L Hemoglobin 8.7 G/DL (14.2-18.0) L Hematocrit 25.7 % (42.0-52.0) L Mean Corpuscular Volume 94 FL (80-99) Mean Corpuscular Hemoglobin 31.6 PG (27.0-31.0) H Mean Corpuscular Hemoglobin Concent 33.8 G/DL (32.0-36.0) Red Cell Distribution Width 12.2 % (11.6-14.8) Platelet Count 141 K/UL (150-450) L Mean Platelet Volume 6.6 FL (6.5-10.1) Neutrophils (%) (Auto) % (45.0-75.0) Lymphocytes (%) (Auto) % (20.0-45.0) Monocytes (%) (Auto) % (1.0-10.0) Eosinophils (%) (Auto) % (0.0-3.0) Basophils (%) (Auto) % (0.0-2.0) Neutrophils % (Manual) Pending Lymphocytes % (Manual) Pending Platelet Estimate Pending Platelet Morphology Pending Sodium Level 138 MMOL/L (136-145) Potassium Level 3.9 MMOL/L (3.5-5.1) Chloride Level 105 MMOL/L (98-107) Carbon Dioxide Level 19 MMOL/L (21-32) L Anion Gap 15 mmol/L (5-15) Blood Urea Nitrogen 41 mg/dL (7-18) H Creatinine 2.5 MG/DL (0.55-1.30) H Estimat Glomerular Filtration Rate 26.8 mL/min (>60) Glucose Level 163 MG/DL (74-106) H Hemoglobin A1c 6.4 % (4.3-6.0) H Uric Acid 8.6 MG/DL (2.6-7.2) H Calcium Level 8.9 MG/DL (8.5-10.1) Phosphorus Level 2.7 MG/DL (2.5-4.9) Magnesium Level 2.4 MG/DL (1.8-2.4) Total Bilirubin 0.7 MG/DL (0.2-1.0) Gamma Glutamyl Transpeptidase 42 U/L (5-85) Aspartate Amino Transf (AST/SGOT) 65 U/L (15-37) H Alanine Aminotransferase (ALT/SGPT) 24 U/L (12-78) Alkaline Phosphatase 79 U/L (46-116) Pro-B-Type Natriuretic Peptide 60038 pg/mL (0-125) H Total Protein 7.1 G/DL (6.4-8.2) Albumin 2.9 G/DL (3.4-5.0) L Globulin 4.2 g/dL Albumin/Globulin Ratio 0.7 (1.0-2.7) L Triglycerides Level 87 MG/DL (30-150) Cholesterol Level 127 MG/DL (< 200) LDL Cholesterol 48 mg/dL (<100) HDL Cholesterol 65 MG/DL (40-60) H Cholesterol/HDL Ratio 2.0 (3.3-4.4) L Thyroid Stimulating Hormone (TSH) 0.478 uiU/mL (0.358-3.740) Current Medications Medications (Trade) Dose Ordered Sig/Bj Route PRN Reason Start Time Stop Time Status Last Admin Dose Admin Acetaminophen (Tylenol) 650 mg Q4H PRN ORAL Mild Pain/Temp > 100.5 04/25/18 21:00 05/25/18 20:59 04/26/18 18:12 Acetaminophen (Tylenol) 650 mg Q4H PRN RECTAL Mild Pain (Pain Scale 1-3) 04/25/18 21:00 05/25/18 20:59 04/26/18 01:33 Ceftriaxone Sodium 2 gm/ Dextrose 55 ml @ 110 mls/hr EVERY 12 HOURS IVPB 04/25/18 21:00 05/02/18 20:59 04/27/18 08:45 Clonidine HCl (Catapres Tab) 0.1 mg Q4H PRN ORAL bp over 160 syst 04/26/18 14:00 05/26/18 13:59 Dextrose (Dextrose 50%) 25 ml Q30M PRN IV Hypoglycemia 04/25/18 15:49 05/25/18 15:48 Dextrose (Dextrose 50%) 50 ml Q30M PRN IV Hypoglycemia 04/25/18 15:49 05/25/18 15:48 Insulin Aspart (NovoLOG) BEFORE MEALS AND HS SUBQ 04/25/18 16:30 05/25/18 16:29 04/27/18 06:12 Lorazepam (Ativan 2mg/ml 1ml) 1 mg Q2H PRN IV alcohol withdraw, seizure 04/25/18 11:08 05/02/18 11:07 Metronidazole (Flagyl) 500 mg Q8HR ORAL 04/26/18 11:00 05/03/18 10:59 04/26/18 11:18 Ondansetron HCl (Zofran) 4 mg Q6H PRN IVP Nausea & Vomiting 04/26/18 14:50 05/26/18 14:49 04/26/18 14:54 Pantoprazole (Protonix) 40 mg EVERY 12 HOURS IVP 04/25/18 21:00 05/25/18 20:59 04/27/18 08:45 Sodium Chloride 1,000 ml @ 75 mls/hr [id number] IV 04/26/18 14:00 05/26/18 13:59 04/27/18 03:20 Thiamine HCl 100 mg/Dextrose 56 ml @ 112 mls/hr Q24H IVPB 04/26/18 15:00 05/26/18 14:59 04/26/18 14:55 Vancomycin HCl (Vanco rx to dose) 1 ea DAILY PRN MISC Per rx protocol 04/25/18 19:30 05/25/18 19:29 Jermaine Enrique MD Apr 27, 2018 10:06
[2018-04-27] MEDS ORDERED: Cefepime HCl 2 GM in D5W 55 ML IVPB SCH (11:00)
--- NOTE | 2018-04-27 11:21 | Nephrology Progress Note ---
Assessment/Plan Problem List: (1) Renal failure (ARF), acute on chronic (2) Diabetic nephropathy (3) Epileptic seizure, generalized (4) Alcohol abuse (5) Anemia Assessment Renal failure- ? Acute on Chronic Anemia HTN by History MJ abuse DM / Proteinuria : Nephropathy Fever , etiology? Plan avoid Nephrotoxics keep BP and BS in check AMIRA kidney noted 2D echo noted Urine studies pending fluid challenge Allopurinol and flomax PO monitor renal parameters Per orders Subjective ROS Limited/Unobtainable: No Constitutional: Reports: malaise, weakness Objective Objective Last 24 Hour Vital Signs Date Time Temp Pulse Resp B/P (MAP) Pulse Ox O2 Delivery O2 Flow Rate FiO2 04/27/18 09:00 Room Air 04/27/18 08:00 115 04/27/18 06:37 110 04/27/18 04:00 98.4 100 20 145/82 (103) 97 04/27/18 04:00 112 04/27/18 00:00 110 04/26/18 23:31 99.0 103 20 136/72 (93) 96 04/26/18 22:38 98.2 04/26/18 21:00 Room Air 04/26/18 20:00 104 04/26/18 20:00 98.6 100 20 140/78 (98) 95 04/26/18 18:42 97.5 04/26/18 16:00 98.6 110 22 153/81 (105) 95 04/26/18 16:00 110 04/26/18 12:00 100.5 110 20 158/96 (116) 94 04/26/18 12:00 108 Intake and Output 04/26/18 04/27/18 19:00 07:00 Output Total 300 ml Balance -300 ml Output Urine Total 300 ml # Voids 2 Laboratory Tests 04/26/18 21:00: Random Vancomycin Level 10.8 04/27/18 04:50: White Blood Count 16.9H, Red Blood Count 2.75L, Hemoglobin 8.7L, Hematocrit 25.7L, Mean Corpuscular Volume 94, Mean Corpuscular Hemoglobin 31.6H, Mean Corpuscular Hemoglobin Concent 33.8, Red Cell Distribution Width 12.2, Platelet Count 141L, Mean Platelet Volume 6.6, Neutrophils (%) (Auto) , Lymphocytes (%) ( Auto) , Monocytes (%) (Auto) , Eosinophils (%) (Auto) , Basophils (%) (Auto) , Neutrophils % (Manual) [Pending], Lymphocytes % (Manual) [Pending], Platelet Estimate [Pending], Platelet Morphology [Pending], Sodium Level 138, Potassium Level 3.9, Chloride Level 105, Carbon Dioxide Level 19L, Anion Gap 15, Blood Urea Nitrogen 41H, Creatinine 2.5H, Estimat Glomerular Filtration Rate 26.8, Glucose Level 163H, Hemoglobin A1c 6.4H, Uric Acid 8.6H, Calcium Level 8.9, Phosphorus Level 2.7, Magnesium Level 2.4, Total Bilirubin 0.7, Gamma Glutamyl Transpeptidase 42, Aspartate Amino Transf (AST/SGOT) 65H, Alanine Aminotransferase (ALT/SGPT) 24, Alkaline Phosphatase 79, Pro-B-Type Natriuretic Peptide [id number], Total Protein 7.1, Albumin 2.9L, Globulin 4.2, Albumin/Globulin Ratio 0.7L, Triglycerides Level 87, Cholesterol Level 127, LDL Cholesterol 48, HDL Cholesterol 65H, Cholesterol/HDL Ratio 2.0L, Thyroid Stimulating Hormone ( TSH) 0.478 Height (Feet): 5 Height (Inches): 10.00 Weight (Pounds): 163 General Appearance: no apparent distress, lethargic Cardiovascular: tachycardia Respiratory/Chest: decreased breath sounds Abdomen: distended Deon Rojas MD Apr 27, 2018 11:21
--- NOTE | 2018-04-27 11:43 | General Progress Note ---
Assessment/Plan Problem List: (1) Renal insufficiency ICD Codes: N28.9 - Disorder of kidney and ureter, unspecified SNOMED: 305769905, 740952017 (2) Marijuana abuse ICD Codes: F12.10 - Cannabis abuse, uncomplicated SNOMED: 45307955 (3) Anemia ICD Codes: D64.9 - Anemia, unspecified SNOMED: 629821428 (4) Alcohol abuse ICD Codes: F10.10 - Alcohol abuse, uncomplicated SNOMED: 44004153 (5) Epileptic seizure, generalized ICD Codes: G40.309 - Generalized idiopathic epilepsy and epileptic syndromes, not intractable, without status epilepticus SNOMED: 32276325 (6) Diabetic nephropathy ICD Codes: E11.21 - Type 2 diabetes mellitus with diabetic nephropathy SNOMED: 326555755 Assessment/Plan vomiting due to combination of DM and cannabinoid abuse add reglan repeat labs tight blood sugar control will fu Subjective ROS Limited/Unobtainable: Yes Allergies: Coded Allergies: No Known Allergies (Unverified , 04/24/18) Objective Last 24 Hour Vital Signs Date Time Temp Pulse Resp B/P (MAP) Pulse Ox O2 Delivery O2 Flow Rate FiO2 04/27/18 09:00 Room Air 04/27/18 08:00 115 04/27/18 06:37 110 04/27/18 04:00 98.4 100 20 145/82 (103) 97 04/27/18 04:00 112 04/27/18 00:00 110 04/26/18 23:31 99.0 103 20 136/72 (93) 96 04/26/18 22:38 98.2 04/26/18 21:00 Room Air 04/26/18 20:00 104 04/26/18 20:00 98.6 100 20 140/78 (98) 95 04/26/18 18:42 97.5 04/26/18 16:00 98.6 110 22 153/81 (105) 95 04/26/18 16:00 110 04/26/18 12:00 100.5 110 20 158/96 (116) 94 04/26/18 12:00 108 Intake and Output 04/26/18 04/27/18 19:00 07:00 Output Total 300 ml Balance -300 ml Output Urine Total 300 ml # Voids 2 Laboratory Tests 04/26/18 21:00: Random Vancomycin Level 10.8 04/27/18 04:50: White Blood Count 16.9H, Red Blood Count 2.75L, Hemoglobin 8.7L, Hematocrit 25.7L, Mean Corpuscular Volume 94, Mean Corpuscular Hemoglobin 31.6H, Mean Corpuscular Hemoglobin Concent 33.8, Red Cell Distribution Width 12.2, Platelet Count 141L, Mean Platelet Volume 6.6, Neutrophils (%) (Auto) , Lymphocytes (%) ( Auto) , Monocytes (%) (Auto) , Eosinophils (%) (Auto) , Basophils (%) (Auto) , Differential Total Cells Counted 100, Neutrophils % (Manual) 89H, Lymphocytes % (Manual) 6L, Monocytes % (Manual) 5, Eosinophils % (Manual) 0, Basophils % ( Manual) 0, Band Neutrophils 0, Platelet Estimate DecreasedL, Platelet Morphology Normal, Red Blood Cell Morphology Normal, Sodium Level 138, Potassium Level 3.9, Chloride Level 105, Carbon Dioxide Level 19L, Anion Gap 15 , Blood Urea Nitrogen 41H, Creatinine 2.5H, Estimat Glomerular Filtration Rate 26.8, Glucose Level 163H, Hemoglobin A1c 6.4H, Uric Acid 8.6H, Calcium Level 8.9 , Phosphorus Level 2.7, Magnesium Level 2.4, Total Bilirubin 0.7, Gamma Glutamyl Transpeptidase 42, Aspartate Amino Transf (AST/SGOT) 65H, Alanine Aminotransferase (ALT/SGPT) 24, Alkaline Phosphatase 79, Pro-B-Type Natriuretic Peptide 67405C, Total Protein 7.1, Albumin 2.9L, Globulin 4.2, Albumin/Globulin Ratio 0.7L, Triglycerides Level 87, Cholesterol Level 127, LDL Cholesterol 48, HDL Cholesterol 65H, Cholesterol/HDL Ratio 2.0L, Thyroid Stimulating Hormone ( TSH) 0.478 Height (Feet): 5 Height (Inches): 10.00 Weight (Pounds): 163 General Appearance: alert EENT: normal ENT inspection Neck: supple Cardiovascular: normal rate Respiratory/Chest: decreased breath sounds Abdomen: normal bowel sounds, non tender, soft Extremities: non-tender Tyler Jarrett MD Apr 27, 2018 11:43
[2018-04-27] MEDS ORDERED: Metoclopramide 10mg/2ml Inj IVP PRN ×2 (11:45→21:30)
[2018-04-27] MEDS: Tamsulosin 0.4mg cap ORAL SCH ×2 (12:00→18:00)
--- NOTE | 2018-04-27 13:01 | NUR ---
NURSE NOTES: Paged Dr. Joaquin regarding patient suddenly de-sat with 55%, RT was at the bedside, 15L via non-rebreather. O2 sat back to 80%. Per Dr. Joaquin call Dr. Sanchez about the situation. Paged Dr. Griffin, stated he will be see the patient. Respiratory therapist was able to put bi-pap O2 sat went up to 93%
--- NOTE | 2018-04-27 13:55 | NUR ---
RADIOLOGY DEPT., CHEST X-RAY DONE.-P.DYE
[2018-04-27] MEDS: Thiamine HCl 100 MG in D5W 55 ML IVPB SCH (15:00)
--- NOTE | 2018-04-27 16:33 | Diagnostic Imaging Report ---
Indication: Shortness of breath Technique: One view of the chest Comparison: 04/26/2018 Findings: Interim marked increase in extensive infiltrate in the left lung, now diffuse throughout the left lung. Interim development of infiltrate with air bronchograms involving the entire right upper lobe. There is also some infiltrate in the right lower perihilar region which was new since the previous study. Interim development of a small left-sided pleural effusion. The heart is borderline enlarged. Impression: Over one day, marked increase in extent of infiltrates, increased and now diffuse throughout the left lung, new in the right upper lobe and right perihilar region. Interim development of small left pleural effusion Findings discussed by phone with Dr. Griffin at the time of interpretation
--- NOTE | 2018-04-27 17:00 | NUR ---
NURSE NOTES: Patient vomited while on bi-pap, suction on, Dr. Griffin at the bedside, does not want Bi-pap may cause aspiration. Per Dr. Griffni transfer patient to ICU. CN made aware, awaiting for room ready.
[2018-04-27] MEDS ORDERED: Albuterol/Ipratropium 3ml neb HHN PRN ×2 (17:45→21:45)
--- NOTE | 2018-04-27 18:17 | Pulmonolgy Critical Care Note ---
Critical Care - Asmt/Plan Problems: (1) Aspiration pneumonia (2) Bilateral pneumonia (3) Hypoxemia (4) Renal failure (ARF), acute on chronic (5) Diabetic nephropathy (6) Epileptic seizure, generalized (7) Marijuana abuse (8) Alcohol abuse (9) Alcohol withdrawal (10) Anemia Assessment/Plan: -Transfer to ICU -NRBFM, titrate to keep FiO2 > 90% -Repeat ABG in 1 hour -May need intubation, would avoid BiPAP given AMS and vomiting -RTC and PRN DUOnebs -Cefepime/Vanco/Flagyl per ID, F/U Cx's -EEG ordered, needs to be seen by neuro, ? AED's -NPO, start mIVF -MVI/thiamine/Folate -DVT Px: Hep SQ CCT 90 D/W family @ bedside D/W RN and RT D/W PMD Critical Care - Objective Last 24 Hour Vital Signs Date Time Temp Pulse Resp B/P (MAP) Pulse Ox O2 Delivery O2 Flow Rate FiO2 04/27/18 16:00 101.8 109 32 147/89 (108) 100 04/27/18 12:23 100.1 04/27/18 12:00 99.0 124 20 143/91 (108) 93 04/27/18 12:00 120 04/27/18 09:00 Room Air 04/27/18 08:00 115 04/27/18 08:00 101.6 119 22 152/93 (112) 92 04/27/18 06:37 110 04/27/18 04:00 98.4 100 20 145/82 (103) 97 04/27/18 04:00 112 04/27/18 00:00 110 04/26/18 23:31 99.0 103 20 136/72 (93) 96 04/26/18 22:38 98.2 04/26/18 21:00 Room Air 04/26/18 20:00 104 04/26/18 20:00 98.6 100 20 140/78 (98) 95 Status: other - confused, + respiratory distress, on FM Condition: critical HEENT: atraumatic, normocephalic Lungs: rhonchi - bilateral Heart: HR/BP stable Abdomen: soft, non-tender, active bowel sounds Extremities: no C/C/E Micro: Microbiology Date/Time Source Procedure Growth Status 3/13/19 20:06 Blood Blood Culture - Preliminary NO GROWTH AFTER 24 HOURS Resulted 04/25/18 19:50 Blood Blood Culture - Preliminary NO GROWTH AFTER 24 HOURS Resulted Accucheck: 159 Blood Sugars: BS controlled Critical Care - Subjective ROS Limited/Unobtainable: Yes ICU Day: 1 Interval Events: 57 m h/o EtOH and MJ a/w new onset Sz's and PNA, + vomiting, inc O2 needs today , 55% on RA 7.359/22/56.9/, placed on BiPAP by RT, then placed on BiPAP and vomited again. I took pt off BiPAP and placed on a NRBFM, SaO2 > 90% + cough, weak, no sig secretions, confused but more alert, no F/C, no CP, + SOB , + N and V, no D/C Abx broadened by ID: now on Cefepime, Flagyl and Vanco Condition: critical IV Access: peripheral EKG Rhythm: Sinus Tachycardia I&O: Intake and Output 04/26/18 04/27/18 19:00 07:00 Output Total 300 ml Balance -300 ml Output Urine Total 300 ml # Voids 2 CXR: B infiltrates Labs: Laboratory Tests Test 04/26/18 21:00 04/27/18 04:50 04/27/18 13:12 04/27/18 13:30 Random Vancomycin Level 10.8 ug/mL White Blood Count 16.9 K/UL (4.8-10.8) H Red Blood Count 2.75 M/UL (4.70-6.10) L Hemoglobin 8.7 G/DL (14.2-18.0) L Hematocrit 25.7 % (42.0-52.0) L Mean Corpuscular Volume 94 FL (80-99) Mean Corpuscular Hemoglobin 31.6 PG (27.0-31.0) H Mean Corpuscular Hemoglobin Concent 33.8 G/DL (32.0-36.0) Red Cell Distribution Width 12.2 % (11.6-14.8) Platelet Count 141 K/UL (150-450) L Mean Platelet Volume 6.6 FL (6.5-10.1) Neutrophils (%) (Auto) % (45.0-75.0) Lymphocytes (%) (Auto) % (20.0-45.0) Monocytes (%) (Auto) % (1.0-10.0) Eosinophils (%) (Auto) % (0.0-3.0) Basophils (%) (Auto) % (0.0-2.0) Differential Total Cells Counted 100 Neutrophils % (Manual) 89 % (45-75) H Lymphocytes % (Manual) 6 % (20-45) L Monocytes % (Manual) 5 % (1-10) Eosinophils % (Manual) 0 % (0-3) Basophils % (Manual) 0 % (0-2) Band Neutrophils 0 % (0-8) Platelet Estimate Decreased L Platelet Morphology Normal Red Blood Cell Morphology Normal Sodium Level 138 MMOL/L (136-145) Potassium Level 3.9 MMOL/L (3.5-5.1) Chloride Level 105 MMOL/L (98-107) Carbon Dioxide Level 19 MMOL/L (21-32) L Anion Gap 15 mmol/L (5-15) Blood Urea Nitrogen 41 mg/dL (7-18) H Creatinine 2.5 MG/DL (0.55-1.30) H Estimat Glomerular Filtration Rate 26.8 mL/min (>60) Glucose Level 163 MG/DL (74-106) H Hemoglobin A1c 6.4 % (4.3-6.0) H Uric Acid 8.6 MG/DL (2.6-7.2) H Calcium Level 8.9 MG/DL (8.5-10.1) Phosphorus Level 2.7 MG/DL (2.5-4.9) Magnesium Level 2.4 MG/DL (1.8-2.4) Total Bilirubin 0.7 MG/DL (0.2-1.0) Gamma Glutamyl Transpeptidase 42 U/L (5-85) Aspartate Amino Transf (AST/SGOT) 65 U/L (15-37) H Alanine Aminotransferase (ALT/SGPT) 24 U/L (12-78) Alkaline Phosphatase 79 U/L (46-116) Pro-B-Type Natriuretic Peptide 87657 pg/mL (0-125) H Total Protein 7.1 G/DL (6.4-8.2) Albumin 2.9 G/DL (3.4-5.0) L Globulin 4.2 g/dL Albumin/Globulin Ratio 0.7 (1.0-2.7) L Triglycerides Level 87 MG/DL (30-150) Cholesterol Level 127 MG/DL (< 200) LDL Cholesterol 48 mg/dL (<100) HDL Cholesterol 65 MG/DL (40-60) H Cholesterol/HDL Ratio 2.0 (3.3-4.4) L Thyroid Stimulating Hormone (TSH) 0.478 uiU/mL (0.358-3.740) Arterial Blood pH 7.359 (7.350-7.450) Arterial Blood Partial Pressure CO2 22.7 mmHg (35.0-45.0) *L Arterial Blood Partial Pressure O2 56.9 mmHg (75.0-100.0) L Arterial Blood HCO3 12.5 mmol/L (22.0-26.0) *L Arterial Blood Oxygen Saturation 86.9 % (95-100) *L Arterial Blood Base Excess -11.5 (-2-2) *L Aaron Test Positive Urine Eosinophils None seen (NONE SEEN) Urine Random Sodium < 20 mmol/L (20-110) L Abhi Griffin MD Apr 27, 2018 18:17
--- NOTE | 2018-04-27 18:30 | NUR ---
NURSE NOTES: Patient de-sat 79% with 15L non-rebreather, patient transferred to ICU room I.
--- NOTE | 2018-04-27 18:55 | NUR ---
NURSE NOTES: Received patient in bed. non verbal not responding to verbal stimuli. sats 43%, RN bagging patient at this time. Current running NS @ 100cc/hr. HR 56, sinus maday. Right Hand 22 G IV site. Condom cath in place. ER paged at this time.
[2018-04-27] MEDS ORDERED: Albuterol/Ipratropium 3ml neb HHN SCH (19:00)
--- NOTE | 2018-04-27 19:00 | NUR ---
NURSE NOTES: ER MD arrived at this time to intubate the patient Intubation completed, ER MD ordered to give atropine. Please see code blue sheet.
--- NOTE | 2018-04-27 19:15 | NUR ---
RESPIRATORY NOTE: Called to pt's room around 1850 d/t desaturation on 100% NRB. Came in the pt's room, RN was already bagging the pt & MD already ordered to intubate the pt. ER doctor, MD Jim came in to intubate pt. Pt intubated at 1900 w/ ETT 7.5 @ 23cm lipline, secured by anchorfast. Pt placed on ventilator w/ settings: AC 16, 600VT, 100%, PEEP +5. B/S lelo. rhonchi/rales, sxn moderate amounts of thin, frothy, pink-yellow secretions. Vent plugged into red outlet, ambubag at bedside. Pt obtunded, stable & tolerating current settings. ABG to be drawn in an hour. Will continue to monitor pt.
[2018-04-27] MEDS ORDERED: D5 1/2NS w/KCl 20mEq 1,000 ML IV SCH (19:30)
--- NOTE | 2018-04-27 19:40 | NUR ---
NURSE NOTES: Spoke with MD Griffin in regards to patient now intubated and current vent settings. ABG to be relayed after done. Will continue to monitor
--- NOTE | 2018-04-27 19:40 | NUR ---
TRANSFER TO FLOOR: Patient transferred to ICU, per Dr. Griffin. Report given to SHARLA Vernon. No Belongings and medications given to RN. Family and or S/O informed of transfer.
--- NOTE | 2018-04-27 19:46 | Emergency Room Report ---
History of Present Illness General Chief Complaint: Seizure Source: Caregiver Present Illness HPI Called to the bedside for patient with respiratory distress. Arrived to find the patient and essentially respiratory distress with decreased respiratory effort. Patient was being ventilated with a bag valve mask. Patient was bradycardic hypotensive and hypoxic O2 saturation on the monitor readmit approximately 60-70%. Patient had minimal gag reflex. Bedside report given to me by the nurse was that the patient has a history of seizures. And the patient has progressively become more altered and with worsening respiratory distress. Patient appeared that he was not breathing. In addition he was bradycardic suggesting that he was likely hypoxic. No further history is available at the time patient require emergent intervention. Allergies: Coded Allergies: No Known Allergies (Unverified , 04/24/18) Patient History Past Medical History: other - Alcohol abu Social History: Reports: alcohol use Nursing Documentation-[facility] Hx Cardiac Problems: Yes Hx Hypertension: Yes Hx Diabetes: Yes Hx Cancer: No Hx Gastrointestinal Problems: No History Of Psychiatric Problem: Yes - ETOH abuse Hx Neurological Problems: No Review of Systems All Other Systems: limited - Patient critical Physical Exam Vital signs: Heart rate approximately 40. O2 saturation 60s being ventilated. Which is interpreted to be low by me. Blood pressure was 80s systolic. Patient was apneic. General Appearance: obese, Chronically Ill ENT: moist mucus membranes Neck: supple Respiratory: other - apneic, decreased breath sounds with ventilation Cardiovascular #1: bradycardia Gastrointestinal: soft, no mass Genitourinary: penis normal Musculoskeletal: normal inspection Neurologic: other - unable to assess Psychiatric: other - unable to assess Skin: no rash Procedures Critical Care Time Critical Care Time Patient had a critical medical condition which untreated could potentially result in life or limb threatening injury. Total critical care time excluding procedures was approximately 45 minutes. Central Line Central Line : Consent: Emergent Central Line Lumen: triple Maximal Sterile Barrier Tech: yes cap, yes mask, yes sterile gown, yes sterile gloves, yes large sterile sheet, yes hand hygiene, yes chlorhexidine prep Central Line Postion: femoral (R) Complications: none Central Line Post Position: sutured, good blood return Attempts: One Patient Tolerated: Well Complications: None Intubation Intubation : Consent: Emergent Intubation Method: orotracheal Tube Size (cm): 7.5 Breath Sounds after Intubation: equal Intubation Complications: no complications Attempts: One Patient Tolerated: Well Complications: None Medical Decision Making Diagnostic Impression: Primary Impression: Epileptic seizure, generalized Additional Impressions: Alcohol abuse Anemia Alcohol withdrawal ER Course Arrived to find patient essentially had neck bradycardic hypotensive and hypoxic. This is considered be a critical patient. Because a severe he patient 's presentation patient require emergent intubation. Patient was intubated. Patient did not have a gag reflex. Central line was placed in patient's right groin. Patient was given one dose of atropine for bradycardia and heart rate improved. Patient's blood pressure was improving and good oxygenation. Case was signed back out to patient's primary care doctor and intensive this for further treatment. Last Vital Signs Date Time Temp Pulse Resp B/P (MAP) Pulse Ox O2 Delivery O2 Flow Rate FiO2 04/27/18 19:15 104 33 100 04/27/18 18:05 77 Non-Rebreather 15.0 04/27/18 16:00 101.8 147/89 (108) Status: improved Disposition: ADMITTED INPATIENT Condition: Critical Referrals: NOT CHOSEN IPA/,REFERRING (PCP) Alejandro Fernandez MD Apr 27, 2018 19:46
[2018-04-27] MEDS ORDERED: Etomidate 40mg/20ml Inj IV ONE (20:00)
--- NOTE | 2018-04-27 20:30 | NUR ---
NURSE NOTES: MD Garrido at the bedside at this time. asked about EEG order changed to STAT. Notified Burt leach and stated he is on his way
--- NOTE | 2018-04-27 20:49 | NUR ---
NURSE NOTES: Notified MD Griffin about ABG results and patient Peak Pressures 50-60, Resp rate 30's. ordered Fentanyl to maintain RASS -2. Orders read back and confirmed by
[2018-04-27] MEDS ORDERED: Heparin 5000 units/ml inj SUBQ SCH ×2 (21:00→22:00)
--- NOTE | 2018-04-27 21:00 | NUR ---
NURSE NOTES: MD Garrido at the bedside and notified him about fentanyl but wants it off before EEG
[2018-04-27] MEDS ORDERED: LORazepam Inj 2mg/ml 1ml IV PRN (21:15)
[2018-04-27] MEDS: D5 1/2NS w/KCl 20mEq 1,000 ML IV SCH (21:19)
[2018-04-27] MEDS ORDERED: Acetaminophen 650 MG SUPP RECTAL PRN (21:30)
[2018-04-27] MEDS: Cefepime HCl 2 GM in D5W 55 ML IVPB SCH (21:33)
--- NOTE | 2018-04-27 21:36 | General Progress Note ---
Assessment/Plan Problem List: (1) Anemia ICD Codes: D64.9 - Anemia, unspecified SNOMED: 077868532 (2) Alcohol abuse ICD Codes: F10.10 - Alcohol abuse, uncomplicated SNOMED: 60988656 (3) Epileptic seizure, generalized ICD Codes: G40.309 - Generalized idiopathic epilepsy and epileptic syndromes, not intractable, without status epilepticus SNOMED: 41764878 Status: deteriorating Assessment/Plan lehtargic transfer to icu pna encephalopathy worsening pna hypoxia resp insuff anemia etoh abuse LP decision per neuro and id s/p generlized seizure Subjective ROS Limited/Unobtainable: Yes Allergies: Coded Allergies: No Known Allergies (Unverified , 04/24/18) Objective Last 24 Hour Vital Signs Date Time Temp Pulse Resp B/P (MAP) Pulse Ox O2 Delivery O2 Flow Rate FiO2 04/27/18 20:00 100 04/27/18 19:15 104 33 100 04/27/18 18:05 90 26 77 Non-Rebreather 15.0 100 04/27/18 18:00 90 26 75 Non-Rebreather 100 04/27/18 16:00 101.8 109 32 147/89 (108) 100 04/27/18 16:00 110 04/27/18 13:00 92 26 99 Facial 100 04/27/18 12:23 100.1 04/27/18 12:00 99.0 124 20 143/91 (108) 93 04/27/18 12:00 120 04/27/18 09:00 Room Air 04/27/18 08:00 115 04/27/18 08:00 101.6 119 22 152/93 (112) 92 04/27/18 06:37 110 04/27/18 04:00 98.4 100 20 145/82 (103) 97 04/27/18 04:00 112 04/27/18 00:00 110 04/26/18 23:31 99.0 103 20 136/72 (93) 96 04/26/18 22:38 98.2 Intake and Output 04/26/18 04/27/18 18:59 06:59 Output Total 300 ml Balance -300 ml Output Urine Total 300 ml # Voids 2 Laboratory Tests 04/27/18 04:50: White Blood Count 16.9H, Red Blood Count 2.75L, Hemoglobin 8.7L, Hematocrit 25.7L, Mean Corpuscular Volume 94, Mean Corpuscular Hemoglobin 31.6H, Mean Corpuscular Hemoglobin Concent 33.8, Red Cell Distribution Width 12.2, Platelet Count 141L, Mean Platelet Volume 6.6, Neutrophils (%) (Auto) , Lymphocytes (%) ( Auto) , Monocytes (%) (Auto) , Eosinophils (%) (Auto) , Basophils (%) (Auto) , Differential Total Cells Counted 100, Neutrophils % (Manual) 89H, Lymphocytes % (Manual) 6L, Monocytes % (Manual) 5, Eosinophils % (Manual) 0, Basophils % ( Manual) 0, Band Neutrophils 0, Platelet Estimate DecreasedL, Platelet Morphology Normal, Red Blood Cell Morphology Normal, Sodium Level 138, Potassium Level 3.9, Chloride Level 105, Carbon Dioxide Level 19L, Anion Gap 15 , Blood Urea Nitrogen 41H, Creatinine 2.5H, Estimat Glomerular Filtration Rate 26.8, Glucose Level 163H, Hemoglobin A1c 6.4H, Uric Acid 8.6H, Calcium Level 8.9 , Phosphorus Level 2.7, Magnesium Level 2.4, Total Bilirubin 0.7, Gamma Glutamyl Transpeptidase 42, Aspartate Amino Transf (AST/SGOT) 65H, Alanine Aminotransferase (ALT/SGPT) 24, Alkaline Phosphatase 79, Pro-B-Type Natriuretic Peptide 29168V, Total Protein 7.1, Albumin 2.9L, Globulin 4.2, Albumin/Globulin Ratio 0.7L, Triglycerides Level 87, Cholesterol Level 127, LDL Cholesterol 48, HDL Cholesterol 65H, Cholesterol/HDL Ratio 2.0L, Thyroid Stimulating Hormone ( TSH) 0.478 04/27/18 13:12: Arterial Blood pH 7.359, Arterial Blood Partial Pressure CO2 22.7*L, Arterial Blood Partial Pressure O2 56.9L, Arterial Blood HCO3 12.5*L, Arterial Blood Oxygen Saturation 86.9*L, Arterial Blood Base Excess -11.5*L, Aaron Test Positive 04/27/18 13:30: Urine Eosinophils None seen, Urine Random Sodium < 20L 04/27/18 20:04: Arterial Blood pH 7.316L, Arterial Blood Partial Pressure CO2 29.6L, Arterial Blood Partial Pressure O2 68.1L, Arterial Blood HCO3 14.8*L, Arterial Blood Oxygen Saturation 91.7L, Arterial Blood Base Excess -10.2*L, Aaron Test Positive Height (Feet): 5 Height (Inches): 10.00 Weight (Pounds): 163 General Appearance: lethargic, confused Cardiovascular: normal rate Respiratory/Chest: rhonchi - bilaterally Abdomen: soft Farhan Joaquin MD Apr 27, 2018 21:36
[2018-04-27] MEDS: NS IV SCH (21:48)
[2018-04-27] MEDS: LEVETIRACETAM IV SCH (21:48)
[2018-04-27] MEDS ORDERED: LEVETIRACETAM IV SCH (22:00)
[2018-04-27] MEDS ORDERED: Pantoprazole Inj IVP SCH (22:00)
[2018-04-27] MEDS ORDERED: NS IV SCH (22:00)
--- NOTE | 2018-04-27 22:45 | NUR ---
NURSE NOTES: Called and notified MD Griffin about patient output for the last 2 hr is 5cc. ordered to give 1L Bolus at this time
--- NOTE | 2018-04-27 22:45 | NUR ---
NURSE NOTES: Called and spoke with MD Caicedo in regards to EEG results at this time. Ordered to give 2 mg Ativan Now and Dilantin 1,000mg IV now. 300mg Dilantin to be given Daily. Also spoke with Burt, central service technician and tech notified him about reading. Will continue to monitor
[2018-04-27] MEDS ORDERED: Phenytoin 1,000 MG in NS 275 ML IVPB ONE (23:00)
[2018-04-27] MEDS ORDERED: LORazepam Inj 2mg/ml 1ml IV SCH (23:00)
[2018-04-28] VITALS (52 sets, daily range): BP systolic 48–119; BP diastolic 18–66
--- NOTE | 2018-04-28 00:08 | General Progress Note ---
Assessment/Plan Assessment/Plan Assessment and Recs: # Anemia of chronic disease due to underlying chronic medical issues, multifactorial --> Anemia workup has been reviewed, ferritin 373 --> No evidence of hemolysis is noted, peripheral smear has been reviewed. --> Hgb goal >7. Transfuse prn. --> Given 2 units prbc on 04/25/18, had a reaction, transfusion reaction ordered --> Epogen or iron at this time is not particularly indicated --> Medications have been reviewed --> gi recs appreciated # Anemia due to alcohol withdrawal/myelosuppresion --> Monitor for withdrawal symptoms --> thimaine, folic acid, ivf, ativan prn ordered # Leukocytosis/Elevated white blood cell count, unspecified likely related to underlying stress reaction, smoking, or underlying infection (especially if bandemia is noted) --> have reviewed peripheral smear and bandemia/neutrophilia noted --> continue antibiotics if they have been started by ID team --> monitor for resolution --> WBC trend: 16--> # Alcohol abuse --> rec cessation # Epileptic seizure, generalized --> as per neuro # Intubated in ICU # Drug abuse The timing of this note does not necessarily reflect the time of the patient was seen. Greatly appreciate consultation! Subjective ROS Limited/Unobtainable: Yes Allergies: Coded Allergies: No Known Allergies (Unverified , 04/24/18) Subjective 04/26: awake, comfortable, no acute distress. 04/27: Pt was transferred to ICU, intubated, wbc 16 Objective Last 24 Hour Vital Signs Date Time Temp Pulse Resp B/P (MAP) Pulse Ox O2 Delivery O2 Flow Rate FiO2 04/27/18 23:05 90 19 100 04/27/18 23:00 91 20 89/19 (42) 100 04/27/18 22:30 94 23 93/19 (43) 100 04/27/18 22:14 99.9 04/27/18 22:00 99.9 104 21 131/46 (74) 100 04/27/18 21:50 4 Mechanical Ventilator 100 04/27/18 21:30 107 35 100 04/27/18 21:00 100.5 103 29 158/131 (140) 99 04/27/18 20:00 100 04/27/18 20:00 110 31 190/121 (144) 99 04/27/18 19:15 104 33 100 04/27/18 18:05 90 26 77 Non-Rebreather 15.0 100 04/27/18 18:00 90 26 75 Non-Rebreather 100 04/27/18 16:00 101.8 109 32 147/89 (108) 100 04/27/18 16:00 110 04/27/18 13:00 92 26 99 Facial 100 04/27/18 12:23 100.1 04/27/18 12:00 99.0 124 20 143/91 (108) 93 04/27/18 12:00 120 04/27/18 09:00 Room Air 04/27/18 08:00 115 04/27/18 08:00 101.6 119 22 152/93 (112) 92 04/27/18 06:37 110 04/27/18 04:00 98.4 100 20 145/82 (103) 97 04/27/18 04:00 112 Intake and Output 04/27/18 04/28/18 18:59 06:59 Intake Total 150 ml Output Total 150 ml 155 ml Balance 0 ml -155 ml Intake Oral 150 ml Output Urine Total 150 ml 155 ml # Voids 1 Laboratory Tests 04/27/18 04:50: White Blood Count 16.9H, Red Blood Count 2.75L, Hemoglobin 8.7L, Hematocrit 25.7L, Mean Corpuscular Volume 94, Mean Corpuscular Hemoglobin 31.6H, Mean Corpuscular Hemoglobin Concent 33.8, Red Cell Distribution Width 12.2, Platelet Count 141L, Mean Platelet Volume 6.6, Neutrophils (%) (Auto) , Lymphocytes (%) ( Auto) , Monocytes (%) (Auto) , Eosinophils (%) (Auto) , Basophils (%) (Auto) , Differential Total Cells Counted 100, Neutrophils % (Manual) 89H, Lymphocytes % (Manual) 6L, Monocytes % (Manual) 5, Eosinophils % (Manual) 0, Basophils % ( Manual) 0, Band Neutrophils 0, Platelet Estimate DecreasedL, Platelet Morphology Normal, Red Blood Cell Morphology Normal, Sodium Level 138, Potassium Level 3.9, Chloride Level 105, Carbon Dioxide Level 19L, Anion Gap 15 , Blood Urea Nitrogen 41H, Creatinine 2.5H, Estimat Glomerular Filtration Rate 26.8, Glucose Level 163H, Hemoglobin A1c 6.4H, Uric Acid 8.6H, Calcium Level 8.9 , Phosphorus Level 2.7, Magnesium Level 2.4, Total Bilirubin 0.7, Gamma Glutamyl Transpeptidase 42, Aspartate Amino Transf (AST/SGOT) 65H, Alanine Aminotransferase (ALT/SGPT) 24, Alkaline Phosphatase 79, Pro-B-Type Natriuretic Peptide 69979O, Total Protein 7.1, Albumin 2.9L, Globulin 4.2, Albumin/Globulin Ratio 0.7L, Triglycerides Level 87, Cholesterol Level 127, LDL Cholesterol 48, HDL Cholesterol 65H, Cholesterol/HDL Ratio 2.0L, Thyroid Stimulating Hormone ( TSH) 0.478 04/27/18 13:12: Arterial Blood pH 7.359, Arterial Blood Partial Pressure CO2 22.7*L, Arterial Blood Partial Pressure O2 56.9L, Arterial Blood HCO3 12.5*L, Arterial Blood Oxygen Saturation 86.9*L, Arterial Blood Base Excess -11.5*L, Aaron Test Positive 04/27/18 13:30: Urine Eosinophils None seen, Urine Random Sodium < 20L 04/27/18 20:04: Arterial Blood pH 7.316L, Arterial Blood Partial Pressure CO2 29.6L, Arterial Blood Partial Pressure O2 68.1L, Arterial Blood HCO3 14.8*L, Arterial Blood Oxygen Saturation 91.7L, Arterial Blood Base Excess -10.2*L, Aaron Test Positive Height (Feet): 5 Height (Inches): 10.00 Weight (Pounds): 163 Objective PE: General Appearance: well appearing, no apparent distress, alert Head: normocephalic EENT: PERRL/EOMI, normal ENT inspection Neck: supple Respiratory: normal breath sounds, no respiratory distress, intubated++ Cardiovascular: normal rate Gastrointestinal: normal inspection, non tender, soft, normal bowel sounds, non -distended Rectal: deferred Genitourinary: deferred Musculoskeletal: normal inspection, back normal Mirza Greenfield MD Apr 28, 2018 00:08
--- NOTE | 2018-04-28 00:19 | NUR ---
NURSE NOTES: Called and left message for MD Griffin in regards to bp and urine output on 5 cc after bolus. awaiting call back Addendum: 04/28/18 at 0032 by MAXX MOTLEY RN bladder scan done and shows 0 ml
--- NOTE | 2018-04-28 00:29 | NUR ---
NURSE NOTES: Patient noted do desaturate at this time, Sat 84%.RT called at this time
--- NOTE | 2018-04-28 00:48 | NUR ---
NURSE NOTES: Spoke with MD Griffin in regards to ABG, patient is gasping, SBP 62. Orders received and read back.
[2018-04-28] MEDS: DOPamine 400mg/250ml 250 ML IV SCH ×2 (01:00→01:44)
[2018-04-28] MEDS: Albuterol/Ipratropium 3ml neb HHN SCH ×4 (01:22→19:22)
--- NOTE | 2018-04-28 02:00 | NUR ---
NURSE NOTES: patient continues sleeping, no eye opening. when providing morning care patient noted to be having involuntary movement. No seizures noted. VS Stable. Continues on Dopamine @ 2 mcg/kg/min. Will continue to monitor
--- NOTE | 2018-04-28 03:00 | Consultation ---
DATE OF CONSULTATION: 04/27/2018 ADDENDUM DISCUSSION: After reviewing the wardrobe coordinator's note, apparently he had several seizures. Therefore, he has alcohol withdrawal seizure, but since he had several seizures, I am going to put him on Keppra 250 mg b.i.d. dose to his creatinine clearance. PLAN: Keppra 250 mg IV b.i.d. James Caicedo MD DR: JOELLE JOB#: [id number] CC: BREE
--- NOTE | 2018-04-28 03:11 | NUR ---
NURSE NOTES: Sputum and urine collected at this time. sent to the lab
[2018-04-28 03:34] LABS: APPEARANCE,URINE CLOUDY; BILIRUBIN, URINE NEGATIVE (NEGATIVE); COLOR,URINE BROWN; GLUCOSE, URINE (UA) NEGATIVE (NEGATIVE); KETONES,URINE 2+ (NEGATIVE); LEUKOCYTE ESTERASE ,URINE 1+ (NEGATIVE); NITRITE,URINE NEGATIVE (NEGATIVE); PH,URINE 5 (4.5-8.0); PROTEIN,URINE 3+ (NEGATIVE); UROBILINOGEN,URINE NORMAL MG/DL (0.0-1.0)
[2018-04-28] MEDS: metroNIDAZOLE 500mg tab ORAL SCH (05:20)
[2018-04-28] MEDS: NovoLOG Insulin Flexpen SUBQ SCH ×3 (05:23→16:50)
--- NOTE | 2018-04-28 05:47 | NUR ---
NURSE NOTES: Dopamine off at this time. SBP >100. No eye opening or movements at this time. Will continue to monitor
[2018-04-28] MEDS: D5 1/2NS w/KCl 20mEq 1,000 ML IV SCH (06:53)
--- NOTE | 2018-04-28 07:17 | NUR ---
HAND-OFF: Report given to Codie MAGDALENO using SBAR.VS Stable at this time
[2018-04-28 07:33] LABS: HEMATOCRIT 26.5 % (42.0-52.0); HEMOGLOBIN 8.6 G/DL (14.2-18.0); MEAN CORPUSCULAR VOLUME 97 FL (80-99); PLATELET COUNT 114 K/UL (150-450); RED BLOOD COUNT 2.74 M/UL (4.70-6.10); RED CELL DISTRIBUTION WIDTH 12.9 % (11.6-14.8); WHITE BLOOD COUNT 16.4 K/UL (4.8-10.8)
--- NOTE | 2018-04-28 07:40 | NUR ---
RESPIRATORY NOTE: received pt intubated on current vent orders with ETT 7.5 placed 23cm at the lip. ETT is secured via anchor fast. no redness visible or skin tears around facial or neck area. alarms are set and audible and vent is plugged into the red outlet. ambu bag at bedside. will cont to monitor.
[2018-04-28 07:59] LABS: ALANINE AMINOTRANSFERASE 18 U/L (12-78); ALBUMIN 2.2 G/DL (3.4-5.0); ALBUMIN/GLOBULIN RATIO 0.6 (1.0-2.7); ALKALINE PHOSPHATASE 54 U/L (46-116); ANION GAP 18 mmol/L (5-15); ASPARTATE AMINO TRANSFERASE 36 U/L (15-37); BILIRUBIN,TOTAL 0.5 MG/DL (0.2-1.0); BLOOD UREA NITROGEN 52 mg/dL (7-18); CARBON DIOXIDE 17 MMOL/L (21-32); CHLORIDE 108 MMOL/L (98-107); CREATINE KINASE 245 U/L (26-308); CREATININE 3.5 MG/DL (0.55-1.30); GAMMA GLUTAMYL TRANSPEPTIDASE 34 U/L (5-85); PHOSPHORUS 4.1 MG/DL (2.5-4.9); POTASSIUM 3.9 MMOL/L (3.5-5.1); SODIUM 142 MMOL/L (136-145)
[2018-04-28] MEDS ORDERED: Gadavist 7.5mMol/7.5ml vial IV PRN (08:00)
--- NOTE | 2018-04-28 08:11 | NUR ---
NURSE NOTES: Report received from Janeen MAGDALENO. Patient obtunded when received with low grade fever.Cooling measure initiated. ETT 7.07/04 AC [id number] 100-Peep 5. Sinus rhythm on the monitor.Right NGT, NPO at this time.HOB elevated to prevent aspiration.Right femoral line running dopamine at 2mcg/hr and D51/2 NS plus 20Kcl at 100cc. No apparent infiltration noted.Mouth care done.Turned and repositioned.Kept clean and dry.Continue close monitoring
[2018-04-28 08:18] LABS: AMYLASE 22 U/L (25-115)
--- NOTE | 2018-04-28 08:31 | General Progress Note ---
Assessment/Plan Problem List: (1) Renal insufficiency ICD Codes: N28.9 - Disorder of kidney and ureter, unspecified SNOMED: 607152576, 274992464 (2) Marijuana abuse ICD Codes: F12.10 - Cannabis abuse, uncomplicated SNOMED: 57212966 (3) Anemia ICD Codes: D64.9 - Anemia, unspecified SNOMED: 687122723 (4) Alcohol abuse ICD Codes: F10.10 - Alcohol abuse, uncomplicated SNOMED: 85724232 (5) Epileptic seizure, generalized ICD Codes: G40.309 - Generalized idiopathic epilepsy and epileptic syndromes, not intractable, without status epilepticus SNOMED: 29451123 (6) Diabetic nephropathy ICD Codes: E11.21 - Type 2 diabetes mellitus with diabetic nephropathy SNOMED: 879367269 Assessment/Plan monitor labs icu care fu pulm start TF Subjective ROS Limited/Unobtainable: No Allergies: Coded Allergies: No Known Allergies (Unverified , 04/24/18) Subjective intubated and transferred to icu Objective Last 24 Hour Vital Signs Date Time Temp Pulse Resp B/P (MAP) Pulse Ox O2 Delivery O2 Flow Rate FiO2 04/28/18 07:42 96 16 100 Mechanical Ventilator 100 04/28/18 07:37 96 26 100 04/28/18 07:35 96 27 100 Mechanical Ventilator 100 04/28/18 07:00 94 27 103/58 (73) 100 04/28/18 06:45 92 23 102/61 (75) 100 04/28/18 06:30 90 21 104/57 (73) 100 04/28/18 06:00 88 21 88/54 (65) 100 04/28/18 05:30 88 21 92/55 (67) 100 04/28/18 05:16 92 26 100 04/28/18 05:15 91 20 104/60 (75) 100 04/28/18 05:00 93 22 106/62 (77) 100 04/28/18 04:45 93 18 109/65 (80) 100 04/28/18 04:30 92 22 106/62 (77) 100 04/28/18 04:00 100 04/28/18 04:00 99.1 92 22 106/63 (77) 100 04/28/18 04:00 73 04/28/18 04:00 Mechanical Ventilator 04/28/18 03:45 94 27 99/60 (73) 100 04/28/18 03:30 93 22 100/59 (73) 100 04/28/18 03:01 94 25 100 04/28/18 03:00 95 22 96/55 (69) 100 04/28/18 02:30 94 20 95/55 (68) 100 04/28/18 02:15 98 23 99/59 (72) 100 04/28/18 02:00 97 24 99/58 (72) 99 04/28/18 01:32 101 34 97 Mechanical Ventilator 100 04/28/18 01:30 97 19 94/57 (69) 98 04/28/18 01:22 99 27 96 Mechanical Ventilator 100 04/28/18 01:21 99 27 100 04/28/18 01:00 64/49 04/28/18 01:00 99.1 103 27 113/66 (82) 92 04/28/18 00:00 100 04/28/18 00:00 110 04/28/18 00:00 Mechanical Ventilator 04/28/18 00:00 75 22 57/18 (31) 100 04/27/18 23:30 88 19 95/20 (45) 100 04/27/18 23:05 90 19 100 04/27/18 23:00 91 20 89/19 (42) 100 04/27/18 22:30 94 23 93/19 (43) 100 04/27/18 22:14 99.9 04/27/18 22:00 99.9 104 21 131/46 (74) 100 04/27/18 21:50 4 Mechanical Ventilator 100 04/27/18 21:30 107 35 100 04/27/18 21:00 100.5 103 29 158/131 (140) 99 04/27/18 20:00 100 04/27/18 20:00 110 31 190/121 (144) 99 04/27/18 20:00 109 04/27/18 20:00 Mechanical Ventilator 04/27/18 19:15 104 33 100 04/27/18 18:05 90 26 77 Non-Rebreather 15.0 100 04/27/18 18:00 90 26 75 Non-Rebreather 100 04/27/18 16:00 101.8 109 32 147/89 (108) 100 04/27/18 16:00 110 04/27/18 13:00 92 26 99 Facial 100 04/27/18 12:23 100.1 04/27/18 12:00 99.0 124 20 143/91 (108) 93 04/27/18 12:00 120 04/27/18 09:00 Room Air Intake and Output 04/27/18 04/28/18 19:00 07:00 Intake Total 150 ml 933.0 ml Output Total 150 ml 175 ml Balance 0 ml 758.0 ml Intake Oral 150 ml IV Total 933.0 ml Output Urine Total 150 ml 175 ml # Voids 1 Laboratory Tests 04/27/18 13:12: Arterial Blood pH 7.359, Arterial Blood Partial Pressure CO2 22.7*L, Arterial Blood Partial Pressure O2 56.9L, Arterial Blood HCO3 12.5*L, Arterial Blood Oxygen Saturation 86.9*L, Arterial Blood Base Excess -11.5*L, Aaron Test Positive 04/27/18 13:30: Urine Eosinophils None seen, Urine Random Sodium < 20L 04/27/18 20:04: Arterial Blood pH 7.316L, Arterial Blood Partial Pressure CO2 29.6L, Arterial Blood Partial Pressure O2 68.1L, Arterial Blood HCO3 14.8*L, Arterial Blood Oxygen Saturation 91.7L, Arterial Blood Base Excess -10.2*L, Aaron Test Positive 04/28/18 00:39: Arterial Blood pH 7.252L, Arterial Blood Partial Pressure CO2 32.9L, Arterial Blood Partial Pressure O2 49.8*L, Arterial Blood HCO3 14.2*L, Arterial Blood Oxygen Saturation 78.6*L, Arterial Blood Base Excess -12.0*L, Aaron Test Positive 04/28/18 03:08: Urine Color Brown, Urine Appearance Cloudy, Urine pH 5, Urine Specific [place] 1.025, Urine Protein 3+H, Urine Glucose (UA) Negative, Urine Ketones 2+H, Urine Blood 1+H, Urine Nitrite Negative, Urine Bilirubin Negative, Urine Urobilinogen Normal, Urine Leukocyte Esterase 1+H, Urine RBC 5-10H, Urine WBC 2-4, Urine Squamous Epithelial Cells Occasional, Urine Amorphous Sediment ModerateH, Urine Bacteria ModerateH, Urine Eosinophils None seen 04/28/18 06:14: White Blood Count 16.4H, Red Blood Count 2.74L, Hemoglobin 8.6L, Hematocrit 26.5L, Mean Corpuscular Volume 97, Mean Corpuscular Hemoglobin 31.4H, Mean Corpuscular Hemoglobin Concent 32.5, Red Cell Distribution Width 12.9, Platelet Count 114L, Mean Platelet Volume 6.9, Neutrophils (%) (Auto) , Lymphocytes (%) ( Auto) , Monocytes (%) (Auto) , Eosinophils (%) (Auto) , Basophils (%) (Auto) , Neutrophils % (Manual) [Pending], Lymphocytes % (Manual) [Pending], Platelet Estimate [Pending], Platelet Morphology [Pending], Sodium Level 142, Potassium Level 3.9, Chloride Level 108H, Carbon Dioxide Level 17L, Anion Gap 18H, Blood Urea Nitrogen 52H, Creatinine 3.5H, Estimat Glomerular Filtration Rate 18.1, Glucose Level 409#H, Uric Acid 8.6H, Calcium Level 8.0L, Phosphorus Level 4.1, Magnesium Level 2.2, Total Bilirubin 0.5, Gamma Glutamyl Transpeptidase 34, Aspartate Amino Transf (AST/SGOT) 36, Alanine Aminotransferase (ALT/SGPT) 18, Alkaline Phosphatase 54, Total Creatine Kinase 245, Troponin I 0.158H, C- Reactive Protein, Quantitative 22.5H, Pro-B-Type Natriuretic Peptide 09608H, Total Protein 5.9L, Albumin 2.2L, Globulin 3.7, Albumin/Globulin Ratio 0.6L, Amylase Level 22L, Lipase 28L, Random Vancomycin Level 10.0 Height (Feet): 5 Height (Inches): 10.00 Weight (Pounds): 163 General Appearance: lethargic EENT: normal ENT inspection Neck: supple Cardiovascular: tachycardia Respiratory/Chest: decreased breath sounds Abdomen: normal bowel sounds, non tender, soft Extremities: non-tender Tyler Jarrett MD Apr 28, 2018 08:31
[2018-04-28] MEDS ORDERED: Allopurinol 100mg Tab ORAL SCH ×2 (09:00)
[2018-04-28] MEDS ORDERED: Phenytoin 100mg cap ORAL SCH (09:00)
[2018-04-28] MEDS ORDERED: Tamsulosin 0.4mg cap ORAL SCH (09:00)
[2018-04-28] MEDS: Pantoprazole Inj IVP SCH ×2 (09:07→20:22)
[2018-04-28] MEDS: Heparin 5000 units/ml inj SUBQ SCH ×2 (09:08→20:24)
[2018-04-28] MEDS: Cefepime HCl 2 GM in D5W 55 ML IVPB SCH (09:11)
[2018-04-28] MEDS: NS IV SCH ×2 (09:46→20:37)
[2018-04-28] MEDS: LEVETIRACETAM IV SCH ×2 (09:46→20:37)
[2018-04-28] MEDS ORDERED: Vancomycin 1gm/D5W 275ml IVPB SCH ×2 (10:00)
--- NOTE | 2018-04-28 10:05 | NUR ---
NURSE NOTES: Turned and repositioned.Update given to daughter Rima.Seen by Dr Caicedo, will follow up with new orders
[2018-04-28] MEDS: NS IVPB SCH (10:22)
[2018-04-28] MEDS: PHENYTOIN IVPB SCH (10:22)
--- NOTE | 2018-04-28 10:39 | Infectious Diseases Prog Note ---
Assessment/Plan Assessment/Plan antibiotics : vancomycin iv, cefepime, flagyl A 1. aspiration pneumonia 2. leucocytosis 3. respiratory failure 4. seizures 5. renal failure worse 6. alcohol withdrawal P 1. d/c vancomycin iv, cefepime, flagyl 2. start zosyn 3. will follow up cultures Subjective ROS Limited/Unobtainable: Yes Allergies: Coded Allergies: No Known Allergies (Unverified , 04/24/18) Objective Vital Signs Last 24 Hour Vital Signs Date Time Temp Pulse Resp B/P (MAP) Pulse Ox O2 Delivery O2 Flow Rate FiO2 04/28/18 10:00 103 22 110/58 (75) 100 04/28/18 09:10 100 04/28/18 09:00 103 27 50 04/28/18 09:00 103 27 101/59 (73) 99 04/28/18 08:00 101 04/28/18 08:00 Mechanical Ventilator 04/28/18 08:00 100 04/28/18 08:00 99.1 104 23 103/58 (73) 100 04/28/18 07:42 96 16 100 Mechanical Ventilator 100 04/28/18 07:37 96 26 100 04/28/18 07:35 96 27 100 Mechanical Ventilator 100 04/28/18 07:00 94 27 103/58 (73) 100 04/28/18 06:45 92 23 102/61 (75) 100 04/28/18 06:30 90 21 104/57 (73) 100 04/28/18 06:00 88 21 88/54 (65) 100 04/28/18 05:30 88 21 92/55 (67) 100 04/28/18 05:16 92 26 100 04/28/18 05:15 91 20 104/60 (75) 100 04/28/18 05:00 93 22 106/62 (77) 100 04/28/18 04:45 93 18 109/65 (80) 100 04/28/18 04:30 92 22 106/62 (77) 100 04/28/18 04:00 100 04/28/18 04:00 99.1 92 22 106/63 (77) 100 04/28/18 04:00 73 04/28/18 04:00 Mechanical Ventilator 04/28/18 03:45 94 27 99/60 (73) 100 3/16/19 03:30 93 22 100/59 (73) 100 04/28/18 03:01 94 25 100 04/28/18 03:00 95 22 96/55 (69) 100 04/28/18 02:30 94 20 95/55 (68) 100 04/28/18 02:15 98 23 99/59 (72) 100 04/28/18 02:00 97 24 99/58 (72) 99 04/28/18 01:32 101 34 97 Mechanical Ventilator 100 04/28/18 01:30 97 19 94/57 (69) 98 04/28/18 01:22 99 27 96 Mechanical Ventilator 100 04/28/18 01:21 99 27 100 04/28/18 01:00 64/49 04/28/18 01:00 99.1 103 27 113/66 (82) 92 04/28/18 00:00 100 04/28/18 00:00 110 04/28/18 00:00 Mechanical Ventilator 04/28/18 00:00 75 22 57/18 (31) 100 04/27/18 23:30 88 19 95/20 (45) 100 04/27/18 23:05 90 19 100 04/27/18 23:00 91 20 89/19 (42) 100 04/27/18 22:30 94 23 93/19 (43) 100 04/27/18 22:14 99.9 04/27/18 22:00 99.9 104 21 131/46 (74) 100 04/27/18 21:50 4 Mechanical Ventilator 100 04/27/18 21:30 107 35 100 04/27/18 21:00 100.5 103 29 158/131 (140) 99 04/27/18 20:00 100 04/27/18 20:00 110 31 190/121 (144) 99 04/27/18 20:00 109 04/27/18 20:00 Mechanical Ventilator 04/27/18 19:15 104 33 100 04/27/18 18:05 90 26 77 Non-Rebreather 15.0 100 04/27/18 18:00 90 26 75 Non-Rebreather 100 04/27/18 16:00 101.8 109 32 147/89 (108) 100 04/27/18 16:00 110 04/27/18 13:00 92 26 99 Facial 100 04/27/18 12:23 100.1 04/27/18 12:00 99.0 124 20 143/91 (108) 93 04/27/18 12:00 120 Height (Feet): 5 Height (Inches): 10.00 Weight (Pounds): 163 HEENT: other - intubated Respiratory/Chest: lungs clear Cardiovascular: normal rate, regular rhythm, no gallop/murmur Abdomen: soft, non tender Extremities: no edema Microbiology Date/Time Source Procedure Growth Status 04/25/18 20:06 Blood Blood Culture - Preliminary NO GROWTH AFTER 48 HOURS Resulted 04/25/18 19:50 Blood Blood Culture - Preliminary NO GROWTH AFTER 48 HOURS Resulted Laboratory Tests Test 04/27/18 13:12 04/27/18 13:30 04/27/18 20:04 04/28/18 00:39 Arterial Blood pH 7.359 (7.350-7.450) 7.316 (7.350-7.450) 7.252 (7.350-7.450) Arterial Blood Partial Pressure CO2 22.7 mmHg (35.0-45.0) *L 29.6 mmHg (35.0-45.0) L 32.9 mmHg (35.0-45.0) L Arterial Blood Partial Pressure O2 56.9 mmHg (75.0-100.0) L 68.1 mmHg (75.0-100.0) L 49.8 mmHg (75.0-100.0) Arterial Blood HCO3 12.5 mmol/L (22.0-26.0) *L 14.8 mmol/L (22.0-26.0) *L 14.2 mmol/L (22.0-26.0) *L Arterial Blood Oxygen Saturation 86.9 % (95-100) *L 91.7 % (95-100) L 78.6 % (95-100) *L Arterial Blood Base Excess -11.5 (-2-2) *L -10.2 (-2-2) *L -12.0 (-2-2) *L Aaron Test Positive Positive Positive Urine Eosinophils None seen (NONE SEEN) Urine Random Sodium < 20 mmol/L (20-110) L Test 04/28/18 03:08 04/28/18 06:14 Urine Color Brown Urine Appearance Cloudy Urine pH 5 (4.5-8.0) Urine Specific [place] 1.025 (1.005-1.035) Urine Protein 3+ (NEGATIVE) H Urine Glucose (UA) Negative (NEGATIVE) Urine Ketones 2+ (NEGATIVE) H Urine Blood 1+ (NEGATIVE) H Urine Nitrite Negative (NEGATIVE) Urine Bilirubin Negative (NEGATIVE) Urine Urobilinogen Normal MG/DL (0.0-1.0) Urine Leukocyte Esterase 1+ (NEGATIVE) H Urine RBC 5-10 /HPF (0 - 0) H Urine WBC 2-4 /HPF (0 - 0) Urine Squamous Epithelial Cells Occasional /LPF Urine Amorphous Sediment Moderate /LPF (NONE) H Urine Bacteria Moderate /HPF (NONE) H Urine Eosinophils None seen (NONE SEEN) White Blood Count 16.4 K/UL (4.8-10.8) H Red Blood Count 2.74 M/UL (4.70-6.10) L Hemoglobin 8.6 G/DL (14.2-18.0) L Hematocrit 26.5 % (42.0-52.0) L Mean Corpuscular Volume 97 FL (80-99) Mean Corpuscular Hemoglobin 31.4 PG (27.0-31.0) H Mean Corpuscular Hemoglobin Concent 32.5 G/DL (32.0-36.0) Red Cell Distribution Width 12.9 % (11.6-14.8) Platelet Count 114 K/UL (150-450) L Mean Platelet Volume 6.9 FL (6.5-10.1) Neutrophils (%) (Auto) % (45.0-75.0) Lymphocytes (%) (Auto) % (20.0-45.0) Monocytes (%) (Auto) % (1.0-10.0) Eosinophils (%) (Auto) % (0.0-3.0) Basophils (%) (Auto) % (0.0-2.0) Neutrophils % (Manual) Pending Lymphocytes % (Manual) Pending Platelet Estimate Pending Platelet Morphology Pending Sodium Level 142 MMOL/L (136-145) Potassium Level 3.9 MMOL/L (3.5-5.1) Chloride Level 108 MMOL/L (98-107) H Carbon Dioxide Level 17 MMOL/L (21-32) L Anion Gap 18 mmol/L (5-15) H Blood Urea Nitrogen 52 mg/dL (7-18) H Creatinine 3.5 MG/DL (0.55-1.30) H Estimat Glomerular Filtration Rate 18.1 mL/min (>60) Glucose Level 409 MG/DL (74-106) #H Uric Acid 8.6 MG/DL (2.6-7.2) H Calcium Level 8.0 MG/DL (8.5-10.1) L Phosphorus Level 4.1 MG/DL (2.5-4.9) Magnesium Level 2.2 MG/DL (1.8-2.4) Total Bilirubin 0.5 MG/DL (0.2-1.0) Gamma Glutamyl Transpeptidase 34 U/L (5-85) Aspartate Amino Transf (AST/SGOT) 36 U/L (15-37) Alanine Aminotransferase (ALT/SGPT) 18 U/L (12-78) Alkaline Phosphatase 54 U/L (46-116) Total Creatine Kinase 245 U/L (26-308) Troponin I 0.158 ng/mL (0.000-0.056) C-Reactive Protein, Quantitative 22.5 mg/dL (0.00-0.90) H Pro-B-Type Natriuretic Peptide 94550 pg/mL (0-125) H Total Protein 5.9 G/DL (6.4-8.2) L Albumin 2.2 G/DL (3.4-5.0) L Globulin 3.7 g/dL Albumin/Globulin Ratio 0.6 (1.0-2.7) L Amylase Level 22 U/L (25-115) L Lipase 28 U/L (73-393) L Random Vancomycin Level 10.0 ug/mL Current Medications Medications (Trade) Dose Ordered Sig/Bj Route PRN Reason Start Time Stop Time Status Last Admin Dose Admin Acetaminophen (Tylenol) 650 mg Q4H PRN ORAL Mild Pain/Temp > 100.5 04/27/18 21:30 05/27/18 21:29 04/27/18 21:44 Acetaminophen (Tylenol) 650 mg Q4H PRN RECTAL Mild Pain (Pain Scale 1-3) 04/27/18 21:30 05/27/18 21:29 Albuterol/ Ipratropium (Albuterol/ Ipratropium) 3 ml Q4H PRN HHN Shortness of Breath 04/27/18 21:45 05/02/18 17:44 Albuterol/ Ipratropium (Albuterol/ Ipratropium) 3 ml Q6HRT HHN 04/28/18 01:00 05/02/18 18:59 04/28/18 07:35 Allopurinol (Zyloprim) 200 mg DAILY ORAL 04/28/18 09:00 05/28/18 08:59 04/28/18 09:09 Cefepime HCl 2 gm/ Dextrose 55 ml @ 110 mls/hr EVERY 12 HOURS IVPB 04/27/18 21:30 05/04/18 21:29 04/28/18 09:11 Clonidine HCl (Catapres Tab) 0.1 mg Q4H PRN ORAL bp over 160 syst 04/27/18 21:30 05/26/18 21:29 Dextrose (Dextrose 50%) 25 ml Q30M PRN IV Hypoglycemia 04/27/18 21:30 05/25/18 15:48 Dextrose (Dextrose 50%) 50 ml Q30M PRN IV Hypoglycemia 04/27/18 21:30 05/25/18 15:48 Dextrose/ Electrolytes 1,000 ml @ 100 mls/hr Q10H IV 04/27/18 21:15 05/27/18 19:29 04/28/18 06:53 Dopamine HCl/ Dextrose 250 ml @ 0 mls/hr Q24H IV 04/28/18 01:00 05/28/18 00:59 04/28/18 01:00 Fentanyl Citrate 1000 mcg/Sodium Chloride 100 ml @ 0 mls/hr Q24H IV 04/27/18 21:00 05/04/18 20:59 04/27/18 21:50 Folic Acid (Folate) 1 mg DAILY ORAL 04/28/18 09:00 05/28/18 08:59 04/28/18 09:09 Gadobutrol (Gadavist) 7.5 mmol NOW PRN IV Radiology Procedure 04/28/18 08:00 05/02/18 03:35 Heparin Sodium (Porcine) (Heparin 5000 units/ml) 5,000 units EVERY 12 HOURS SUBQ 04/28/18 09:00 05/27/18 20:59 04/28/18 09:08 Insulin Aspart (NovoLOG) BEFORE MEALS AND HS SUBQ 04/27/18 22:00 05/27/18 21:59 04/28/18 05:23 Levetiracetam 250 mg/Sodium Chloride 112.5 ml @ 450 mls/hr Q12HR IV 04/27/18 22:00 05/27/18 21:59 04/28/18 09:46 Lorazepam (Ativan 2mg/ml 1ml) 1 mg Q2H PRN IV alcohol withdraw, seizure 04/27/18 21:15 05/02/18 11:07 Metoclopramide HCl (Reglan) 10 mg Q6H PRN IVP Nausea & Vomiting 04/27/18 21:30 05/27/18 21:29 Metronidazole (Flagyl) 500 mg Q8HR ORAL 04/27/18 22:00 05/03/18 10:59 04/28/18 05:20 Multivitamins (Multivitamins) 1 tab DAILY ORAL 04/28/18 09:00 05/28/18 08:59 04/28/18 09:09 Ondansetron HCl (Zofran) 4 mg Q6H PRN IVP Nausea & Vomiting 04/27/18 21:30 05/27/18 21:29 Pantoprazole (Protonix) 40 mg EVERY 12 HOURS IVP 04/28/18 09:00 05/25/18 20:59 04/28/18 09:07 Phenytoin 300 mg/ Sodium Chloride 116 ml @ 120 mls/hr DAILY IVPB 04/28/18 09:00 05/28/18 08:59 04/28/18 10:22 Tamsulosin HCl (Flomax) 0.4 mg BID ORAL 04/28/18 09:00 05/27/18 11:59 04/28/18 09:09 Thiamine HCl 100 mg/Dextrose 56 ml @ 112 mls/hr Q24H IVPB 04/28/18 15:00 05/26/18 14:59 Vancomycin HCl (Vanco rx to dose) 1 ea DAILY PRN MISC Per rx protocol 04/27/18 21:30 05/27/18 21:29 Vancomycin HCl 1 gm/Dextrose 275 ml @ 183.708 mls/hr ONCE IVPB 04/28/18 10:00 04/28/18 13:00 04/28/18 10:25 Jermaine Enrique MD Apr 28, 2018 10:39
[2018-04-28] MEDS ORDERED: Piperacillin/Tazobactam 3.375 GM in D5W 110 ML IVPB SCH (12:00)
--- NOTE | 2018-04-28 12:00 | NUR ---
NURSE NOTES: CT head done.Pt turned and repositioned,kept clean and dry.Ongoing EEG, will continue to monitor
--- NOTE | 2018-04-28 12:11 | Diagnostic Imaging Report ---
EXAM: CT Head Without Intravenous Contrast CLINICAL HISTORY: Seizures TECHNIQUE: Axial computed tomography images of the head/brain without intravenous contrast. CTDI is 70.53 mGy and DLP is 1445 mGy-cm. One or more of the following dose reduction techniques were used: automated exposure control, adjustment of the mA and/or kV according to patient size, use of iterative reconstruction technique. COMPARISON: CT of the head dated 04/24/18 FINDINGS: Brain: Mild generalized parenchymal volume loss, likely age-related. Mild periventricular white matter hypodensities. No evidence of acute intracranial hemorrhage. No mass effect or midline shift. Ventricles: Unremarkable. No ventriculomegaly. Bones/joints: Unremarkable. No acute fracture. Soft tissues: Unremarkable. Sinuses: Unremarkable as visualized. No acute sinusitis. Mastoid air cells: Unremarkable as visualized. No mastoid effusion. IMPRESSION: 1. No acute intracranial findings. 2. Mild periventricular white matter hypodensities, likely related to chronic small vessel disease changes. 3. Mild generalized cerebral parenchymal volume loss, unchanged.
[2018-04-28] MEDS ORDERED: D5W IV SCH (13:00)
[2018-04-28] MEDS ORDERED: ACYCLOVIR IV SCH (13:00)
--- NOTE | 2018-04-28 13:09 | NUR ---
NURSE NOTES: Dr. Caicedo called to report CT of Head and EEG - he stated he is already aware of the results of both test
--- NOTE | 2018-04-28 13:30 | NUR ---
NURSE NOTES: EEG done and Dr Caicedo made aware of result include CT head
--- NOTE | 2018-04-28 13:43 | Nephrology Progress Note ---
Assessment/Plan Problem List: (1) Renal failure (ARF), acute on chronic (2) Diabetic nephropathy (3) Epileptic seizure, generalized (4) Alcohol abuse (5) Anemia (6) Acute respiratory failure Assessment Renal failure- Acute on Chronic Cr rising Anemia HTN by History MJ abuse Etoh abuse DM / Proteinuria : Nephropathy Fever , etiology? Plan Adjust Acyclovir dose per Neuro request avoid Nephrotoxics keep BP and BS in check AMIRA kidney noted 2D echo noted Urine studies pending fluid challenge Allopurinol DC Flomax- Has moralez monitor renal parameters discussed with family Per orders Subjective ROS Limited/Unobtainable: Yes Objective Objective Last 24 Hour Vital Signs Date Time Temp Pulse Resp B/P (MAP) Pulse Ox O2 Delivery O2 Flow Rate FiO2 04/28/18 13:31 100 27 100 Mechanical Ventilator 100 04/28/18 13:27 97 22 100 Mechanical Ventilator 100 04/28/18 12:53 100 30 100 04/28/18 12:00 100 04/28/18 10:46 104 23 100 04/28/18 10:00 103 22 110/58 (75) 100 04/28/18 09:10 100 04/28/18 09:00 103 27 50 04/28/18 09:00 103 27 101/59 (73) 99 04/28/18 08:00 101 04/28/18 08:00 Mechanical Ventilator 04/28/18 08:00 100 04/28/18 08:00 99.1 104 23 103/58 (73) 100 04/28/18 07:42 96 16 100 Mechanical Ventilator 100 04/28/18 07:37 96 26 100 04/28/18 07:35 96 27 100 Mechanical Ventilator 100 04/28/18 07:00 94 27 103/58 (73) 100 04/28/18 06:45 92 23 102/61 (75) 100 04/28/18 06:30 90 21 104/57 (73) 100 04/28/18 06:00 88 21 88/54 (65) 100 04/28/18 05:30 88 21 92/55 (67) 100 04/28/18 05:16 92 26 100 04/28/18 05:15 91 20 104/60 (75) 100 04/28/18 05:00 93 22 106/62 (77) 100 04/28/18 04:45 93 18 109/65 (80) 100 04/28/18 04:30 92 22 106/62 (77) 100 04/28/18 04:00 100 04/28/18 04:00 99.1 92 22 106/63 (77) 100 04/28/18 04:00 73 04/28/18 04:00 Mechanical Ventilator 04/28/18 03:45 94 27 99/60 (73) 100 04/28/18 03:30 93 22 100/59 (73) 100 04/28/18 03:01 94 25 100 04/28/18 03:00 95 22 96/55 (69) 100 04/28/18 02:30 94 20 95/55 (68) 100 04/28/18 02:15 98 23 99/59 (72) 100 04/28/18 02:00 97 24 99/58 (72) 99 04/28/18 01:32 101 34 97 Mechanical Ventilator 100 04/28/18 01:30 97 19 94/57 (69) 98 04/28/18 01:22 99 27 96 Mechanical Ventilator 100 04/28/18 01:21 99 27 100 04/28/18 01:00 64/49 04/28/18 01:00 99.1 103 27 113/66 (82) 92 04/28/18 00:00 100 04/28/18 00:00 110 04/28/18 00:00 Mechanical Ventilator 04/28/18 00:00 75 22 57/18 (31) 100 04/27/18 23:30 88 19 95/20 (45) 100 04/27/18 23:05 90 19 100 04/27/18 23:00 91 20 89/19 (42) 100 04/27/18 22:30 94 23 93/19 (43) 100 04/27/18 22:14 99.9 04/27/18 22:00 99.9 104 21 131/46 (74) 100 04/27/18 21:50 4 Mechanical Ventilator 100 04/27/18 21:30 107 35 100 04/27/18 21:00 100.5 103 29 158/131 (140) 99 04/27/18 20:00 100 04/27/18 20:00 110 31 190/121 (144) 99 04/27/18 20:00 109 04/27/18 20:00 Mechanical Ventilator 3/15/19 19:15 104 33 100 04/27/18 18:05 90 26 77 Non-Rebreather 15.0 100 04/27/18 18:00 90 26 75 Non-Rebreather 100 04/27/18 16:00 101.8 109 32 147/89 (108) 100 04/27/18 16:00 110 Intake and Output 04/27/18 04/28/18 19:00 07:00 Intake Total 150 ml 933.0 ml Output Total 150 ml 175 ml Balance 0 ml 758.0 ml Intake Oral 150 ml IV Total 933.0 ml Output Urine Total 150 ml 175 ml # Voids 1 Laboratory Tests 04/27/18 20:04: Arterial Blood pH 7.316L, Arterial Blood Partial Pressure CO2 29.6L, Arterial Blood Partial Pressure O2 68.1L, Arterial Blood HCO3 14.8*L, Arterial Blood Oxygen Saturation 91.7L, Arterial Blood Base Excess -10.2*L, Aaron Test Positive 04/28/18 00:39: Arterial Blood pH 7.252L, Arterial Blood Partial Pressure CO2 32.9L, Arterial Blood Partial Pressure O2 49.8*L, Arterial Blood HCO3 14.2*L, Arterial Blood Oxygen Saturation 78.6*L, Arterial Blood Base Excess -12.0*L, Aaron Test Positive 04/28/18 03:08: Urine Color Brown, Urine Appearance Cloudy, Urine pH 5, Urine Specific [place] 1.025, Urine Protein 3+H, Urine Glucose (UA) Negative, Urine Ketones 2+H, Urine Blood 1+H, Urine Nitrite Negative, Urine Bilirubin Negative, Urine Urobilinogen Normal, Urine Leukocyte Esterase 1+H, Urine RBC 5-10H, Urine WBC 2-4, Urine Squamous Epithelial Cells Occasional, Urine Amorphous Sediment ModerateH, Urine Bacteria ModerateH, Urine Eosinophils None seen 04/28/18 06:14: White Blood Count 16.4H, Red Blood Count 2.74L, Hemoglobin 8.6L, Hematocrit 26.5L, Mean Corpuscular Volume 97, Mean Corpuscular Hemoglobin 31.4H, Mean Corpuscular Hemoglobin Concent 32.5, Red Cell Distribution Width 12.9, Platelet Count 114L, Mean Platelet Volume 6.9, Neutrophils (%) (Auto) , Lymphocytes (%) ( Auto) , Monocytes (%) (Auto) , Eosinophils (%) (Auto) , Basophils (%) (Auto) , Differential Total Cells Counted 100, Neutrophils % (Manual) 86H, Lymphocytes % (Manual) 7L, Monocytes % (Manual) 1, Eosinophils % (Manual) 0, Basophils % ( Manual) 0, Band Neutrophils 6, Platelet Estimate DecreasedL, Platelet Morphology Normal, Hypochromasia 2+, Anisocytosis 1+, Sodium Level 142, Potassium Level 3.9, Chloride Level 108H, Carbon Dioxide Level 17L, Anion Gap 18H, Blood Urea Nitrogen 52H, Creatinine 3.5H, Estimat Glomerular Filtration Rate 18.1, Glucose Level 409#H, Uric Acid 8.6H, Calcium Level 8.0L, Phosphorus Level 4.1, Magnesium Level 2.2, Total Bilirubin 0.5, Gamma Glutamyl Transpeptidase 34, Aspartate Amino Transf (AST/SGOT) 36, Alanine Aminotransferase (ALT/SGPT) 18, Alkaline Phosphatase 54, Total Creatine Kinase 245, Troponin I 0.158H, C-Reactive Protein, Quantitative 22.5H, Pro-B-Type Natriuretic Peptide 52586H, Total Protein 5.9L, Albumin 2.2L, Globulin 3.7, Albumin/Globulin Ratio 0.6L, Amylase Level 22L, Lipase 28L, Random Vancomycin Level 10.0 04/28/18 10:50: Arterial Blood pH 7.327L, Arterial Blood Partial Pressure CO2 33.7L, Arterial Blood Partial Pressure O2 139.8H, Arterial Blood HCO3 17.2*L, Arterial Blood Oxygen Saturation 98.3, Arterial Blood Base Excess -7.9L, Aaron Test Positive Height (Feet): 5 Height (Inches): 10.00 Weight (Pounds): 163 General Appearance: no apparent distress, lethargic EENT: other - on Vent Cardiovascular: tachycardia Respiratory/Chest: decreased breath sounds Abdomen: distended Deon Rojas MD Apr 28, 2018 13:43
--- NOTE | 2018-04-28 14:02 | NUR ---
NURSE NOTES: Family visit and update done. Seen by Dr Rojas who also update family. Dr Rojas made aware of anuria.Will follow up with new orders.Kept on close monitor.
[2018-04-28] MEDS ORDERED: Thiamine HCl 100 MG in D5W 55 ML IVPB SCH (15:00)
--- NOTE | 2018-04-28 15:02 | NUR ---
NURSE NOTES: Case management consult for possible transfer to [facility] per Dr Caicedo request.Face sheet faxed to Creg at [facility].Awaiting further orders.
--- NOTE | 2018-04-28 16:04 | NUR ---
NURSE NOTES: Mouth care done, patient turned and repositioned.Update given to daughter Rima.Will continue to monitor
[2018-04-28] MEDS: Midazolam/D5W 100ml 100 ML IVPB SCH (17:48)
--- NOTE | 2018-04-28 17:55 | Pulmonolgy Critical Care Note ---
Critical Care - Asmt/Plan Assessment/Plan: Problems: (1) ? DKA gap acidosis, ketones, hyperglycemia over 400 (2) Bilateral pneumonia (3) Hypoxemia (4) Renal failure (ARF), acute on chronic (5) Diabetic nephropathy (6) Epileptic seizure, generalized (7) Marijuana abuse (8) Alcohol abuse (9) Alcohol withdrawal (10) Anemia Assessment/Plan: -needs endo eval and suspect insulin drip -on vent, FU abg -monitor gap IVF for now may need more than 100 cc hour -RTC and PRN DUOnebs -Cefepime/Vanco/Flagyl per ID, F/U Cx's -EEG ordered, needs to be seen by neuro, ? AED's -NPO, start mIVF -MVI/thiamine/Folate -DVT Px: Hep SQ awaiting transfer to [facility] for continuious eeg RO nonconvulsive status CCT 90 D/W no family @ bedside D/W RN and RT D/W PMD Critical Care - Objective Last 24 Hour Vital Signs Date Time Temp Pulse Resp B/P (MAP) Pulse Ox O2 Delivery O2 Flow Rate FiO2 04/28/18 17:48 Mechanical Ventilator 100 04/28/18 16:47 104 31 100 04/28/18 16:00 Mechanical Ventilator 04/28/18 16:00 100 04/28/18 15:09 98.9 04/28/18 14:45 109 30 100 04/28/18 14:09 98 32 92/52 (65) 94 04/28/18 14:00 99 32 89/47 (61) 94 04/28/18 13:31 100 27 100 Mechanical Ventilator 100 04/28/18 13:27 97 22 100 Mechanical Ventilator 100 04/28/18 13:00 101 28 101/55 (70) 100 04/28/18 12:53 100 30 100 04/28/18 12:00 Mechanical Ventilator 04/28/18 12:00 100.2 105 25 118/66 (83) 100 04/28/18 12:00 100 04/28/18 12:00 108 04/28/18 11:52 106 21 119/59 (79) 100 04/28/18 11:00 103 22 114/61 (78) 100 04/28/18 10:46 104 23 100 04/28/18 10:00 103 22 110/58 (75) 100 04/28/18 09:10 100 04/28/18 09:00 103 27 50 04/28/18 09:00 103 27 101/59 (73) 99 04/28/18 08:00 101 04/28/18 08:00 Mechanical Ventilator 04/28/18 08:00 100 04/28/18 08:00 99.1 104 23 103/58 (73) 100 04/28/18 07:42 96 16 100 Mechanical Ventilator 100 04/28/18 07:37 96 26 100 04/28/18 07:35 96 27 100 Mechanical Ventilator 100 04/28/18 07:00 94 27 103/58 (73) 100 04/28/18 06:45 92 23 102/61 (75) 100 04/28/18 06:30 90 21 104/57 (73) 100 04/28/18 06:00 88 21 88/54 (65) 100 04/28/18 05:30 88 21 92/55 (67) 100 04/28/18 05:16 92 26 100 04/28/18 05:15 91 20 104/60 (75) 100 04/28/18 05:00 93 22 106/62 (77) 100 04/28/18 04:45 93 18 109/65 (80) 100 04/28/18 04:30 92 22 106/62 (77) 100 04/28/18 04:00 100 04/28/18 04:00 99.1 92 22 106/63 (77) 100 04/28/18 04:00 73 04/28/18 04:00 Mechanical Ventilator 04/28/18 03:45 94 27 99/60 (73) 100 04/28/18 03:30 93 22 100/59 (73) 100 04/28/18 03:01 94 25 100 04/28/18 03:00 95 22 96/55 (69) 100 04/28/18 02:30 94 20 95/55 (68) 100 04/28/18 02:15 98 23 99/59 (72) 100 04/28/18 02:00 97 24 99/58 (72) 99 04/28/18 01:32 101 34 97 Mechanical Ventilator 100 04/28/18 01:30 97 19 94/57 (69) 98 04/28/18 01:22 99 27 96 Mechanical Ventilator 100 04/28/18 01:21 99 27 100 04/28/18 01:00 64/49 04/28/18 01:00 99.1 103 27 113/66 (82) 92 04/28/18 00:00 100 04/28/18 00:00 110 04/28/18 00:00 Mechanical Ventilator 04/28/18 00:00 75 22 57/18 (31) 100 04/27/18 23:30 88 19 95/20 (45) 100 04/27/18 23:05 90 19 100 04/27/18 23:00 91 20 89/19 (42) 100 04/27/18 22:30 94 23 93/19 (43) 100 04/27/18 22:14 99.9 04/27/18 22:00 99.9 104 21 131/46 (74) 100 04/27/18 21:50 4 Mechanical Ventilator 100 04/27/18 21:30 107 35 100 04/27/18 21:00 100.5 103 29 158/131 (140) 99 04/27/18 20:00 100 04/27/18 20:00 110 31 190/121 (144) 99 04/27/18 20:00 109 04/27/18 20:00 Mechanical Ventilator 04/27/18 19:15 104 33 100 04/27/18 18:05 90 26 77 Non-Rebreather 15.0 100 04/27/18 18:00 90 26 75 Non-Rebreather 100 Status: obtunded Condition: critical Heart: HR/BP unstable Abdomen: soft, non-tender Extremities: edema Micro: Microbiology Date/Time Source Procedure Growth Status 04/25/18 20:06 Blood Blood Culture - Preliminary NO GROWTH AFTER 48 HOURS Resulted 04/25/18 19:50 Blood Blood Culture - Preliminary NO GROWTH AFTER 48 HOURS Resulted Accucheck: 401 Blood Sugars: BS not controlled Critical Care - Subjective FI02: 100 Vent Support Breath Rate: 16 Vent Support Mode: AC Vent Tidal Volume: 600 Sputum Amount: Small PEEP: 5.0 PIP: 25 I&O: Intake and Output 04/27/18 04/28/18 19:00 07:00 Intake Total 150 ml 933.0 ml Output Total 150 ml 175 ml Balance 0 ml 758.0 ml Intake Oral 150 ml IV Total 933.0 ml Output Urine Total 150 ml 175 ml # Voids 1 ET-Tube: 7.5 ET Position: 23 Labs: Microbiology Date/Time Source Procedure Growth Status 04/25/18 20:06 Blood Blood Culture - Preliminary NO GROWTH AFTER 48 HOURS Resulted 04/25/18 19:50 Blood Blood Culture - Preliminary NO GROWTH AFTER 48 HOURS Resulted Current Medications Medications (Trade) Dose Ordered Sig/Bj Route PRN Reason Start Time Stop Time Status Last Admin Dose Admin Acetaminophen (Tylenol) 650 mg Q4H PRN ORAL Mild Pain/Temp > 100.5 04/27/18 21:30 05/27/18 21:29 04/27/18 21:44 Acetaminophen (Tylenol) 650 mg Q4H PRN RECTAL Mild Pain (Pain Scale 1-3) 04/27/18 21:30 05/27/18 21:29 04/28/18 14:39 Acyclovir 1000 mg/ Dextrose 275 ml @ 275 mls/hr Q24HRS IV 04/29/18 09:00 05/29/18 08:59 Albuterol/ Ipratropium (Albuterol/ Ipratropium) 3 ml Q4H PRN HHN Shortness of Breath 04/27/18 21:45 05/02/18 17:44 Albuterol/ Ipratropium (Albuterol/ Ipratropium) 3 ml Q6HRT HHN 04/28/18 01:00 05/02/18 18:59 04/28/18 13:27 Allopurinol (Zyloprim) 200 mg DAILY NG 04/29/18 09:00 05/28/18 08:59 Chlorhexidine Gluconate (Lidia-Hex 2%) 1 applic DAILY@2000 TOPIC 04/28/18 20:00 05/28/18 19:59 Clonidine HCl (Catapres Tab) 0.1 mg Q4H PRN ORAL bp over 160 syst 04/27/18 21:30 05/26/18 21:29 Dextrose (Dextrose 50%) 25 ml Q30M PRN IV Hypoglycemia 04/27/18 21:30 05/25/18 15:48 Dextrose (Dextrose 50%) 50 ml Q30M PRN IV Hypoglycemia 04/27/18 21:30 05/25/18 15:48 Dopamine HCl/ Dextrose 250 ml @ 0 mls/hr Q24H IV 04/28/18 01:00 05/28/18 00:59 04/28/18 01:00 Gadobutrol (Gadavist) 7.5 mmol NOW PRN IV Radiology Procedure 04/28/18 08:00 05/02/18 03:35 Heparin Sodium (Porcine) (Heparin 5000 units/ml) 5,000 units EVERY 12 HOURS SUBQ 04/28/18 09:00 05/27/18 20:59 04/28/18 09:08 Insulin Aspart (NovoLOG) BEFORE MEALS AND HS SUBQ 04/27/18 22:00 05/27/18 21:59 04/28/18 16:50 Levetiracetam 250 mg/Sodium Chloride 112.5 ml @ 450 mls/hr Q12HR IV 04/27/18 22:00 05/27/18 21:59 04/28/18 09:46 Lorazepam (Ativan 2mg/ml 1ml) 1 mg Q2H PRN IV alcohol withdraw, seizure 04/27/18 21:15 05/02/18 11:07 Metoclopramide HCl (Reglan) 10 mg Q6H PRN IVP Nausea & Vomiting 04/27/18 21:30 05/27/18 21:29 Midazolam HCl 100 ml @ 2 mls/hr Q24H IVPB 04/28/18 16:15 05/05/18 16:14 04/28/18 17:48 Ondansetron HCl (Zofran) 4 mg Q6H PRN IVP Nausea & Vomiting 04/27/18 21:30 05/27/18 21:29 Pantoprazole (Protonix) 40 mg EVERY 12 HOURS IVP 04/28/18 09:00 05/25/18 20:59 04/28/18 09:07 Phenytoin 300 mg/ Sodium Chloride 116 ml @ 120 mls/hr DAILY IVPB 04/28/18 09:00 05/28/18 08:59 04/28/18 10:22 Piperacillin Sod/ Tazobactam Sod 3.375 gm/Dextrose 110 ml @ 27.5 mls/hr Q12H IVPB 04/28/18 12:00 05/05/18 11:59 04/28/18 12:41 Sodium Chloride 1,000 ml @ 100 mls/hr Q10H IV 04/28/18 13:30 05/28/18 13:29 3/16/19 13:58 Thiamine HCl 100 mg/Dextrose 56 ml @ 112 mls/hr Q24H IVPB 04/28/18 15:00 05/26/18 14:59 04/28/18 15:17 Laboratory Tests Test 04/27/18 20:04 04/28/18 00:39 04/28/18 03:08 04/28/18 06:14 Arterial Blood pH 7.316 (7.350-7.450) 7.252 (7.350-7.450) Arterial Blood Partial Pressure CO2 29.6 mmHg (35.0-45.0) L 32.9 mmHg (35.0-45.0) L Arterial Blood Partial Pressure O2 68.1 mmHg (75.0-100.0) L 49.8 mmHg (75.0-100.0) Arterial Blood HCO3 14.8 mmol/L (22.0-26.0) *L 14.2 mmol/L (22.0-26.0) *L Arterial Blood Oxygen Saturation 91.7 % (95-100) L 78.6 % (95-100) *L Arterial Blood Base Excess -10.2 (-2-2) *L -12.0 (-2-2) *L Aaron Test Positive Positive Urine Color Brown Urine Appearance Cloudy Urine pH 5 (4.5-8.0) Urine Specific [place] 1.025 (1.005-1.035) Urine Protein 3+ (NEGATIVE) H Urine Glucose (UA) Negative (NEGATIVE) Urine Ketones 2+ (NEGATIVE) H Urine Blood 1+ (NEGATIVE) H Urine Nitrite Negative (NEGATIVE) Urine Bilirubin Negative (NEGATIVE) Urine Urobilinogen Normal MG/DL (0.0-1.0) Urine Leukocyte Esterase 1+ (NEGATIVE) H Urine RBC 5-10 /HPF (0 - 0) H Urine WBC 2-4 /HPF (0 - 0) Urine Squamous Epithelial Cells Occasional /LPF Urine Amorphous Sediment Moderate /LPF (NONE) H Urine Bacteria Moderate /HPF (NONE) H Urine Eosinophils None seen (NONE SEEN) White Blood Count 16.4 K/UL (4.8-10.8) H Red Blood Count 2.74 M/UL (4.70-6.10) L Hemoglobin 8.6 G/DL (14.2-18.0) L Hematocrit 26.5 % (42.0-52.0) L Mean Corpuscular Volume 97 FL (80-99) Mean Corpuscular Hemoglobin 31.4 PG (27.0-31.0) H Mean Corpuscular Hemoglobin Concent 32.5 G/DL (32.0-36.0) Red Cell Distribution Width 12.9 % (11.6-14.8) Platelet Count 114 K/UL (150-450) L Mean Platelet Volume 6.9 FL (6.5-10.1) Neutrophils (%) (Auto) % (45.0-75.0) Lymphocytes (%) (Auto) % (20.0-45.0) Monocytes (%) (Auto) % (1.0-10.0) Eosinophils (%) (Auto) % (0.0-3.0) Basophils (%) (Auto) % (0.0-2.0) Differential Total Cells Counted 100 Neutrophils % (Manual) 86 % (45-75) H Lymphocytes % (Manual) 7 % (20-45) L Monocytes % (Manual) 1 % (1-10) Eosinophils % (Manual) 0 % (0-3) Basophils % (Manual) 0 % (0-2) Band Neutrophils 6 % (0-8) Platelet Estimate Decreased L Platelet Morphology Normal Hypochromasia 2+ Anisocytosis 1+ Sodium Level 142 MMOL/L (136-145) Potassium Level 3.9 MMOL/L (3.5-5.1) Chloride Level 108 MMOL/L (98-107) H Carbon Dioxide Level 17 MMOL/L (21-32) L Anion Gap 18 mmol/L (5-15) H Blood Urea Nitrogen 52 mg/dL (7-18) H Creatinine 3.5 MG/DL (0.55-1.30) H Estimat Glomerular Filtration Rate 18.1 mL/min (>60) Glucose Level 409 MG/DL (74-106) #H Uric Acid 8.6 MG/DL (2.6-7.2) H Calcium Level 8.0 MG/DL (8.5-10.1) L Phosphorus Level 4.1 MG/DL (2.5-4.9) Magnesium Level 2.2 MG/DL (1.8-2.4) Total Bilirubin 0.5 MG/DL (0.2-1.0) Gamma Glutamyl Transpeptidase 34 U/L (5-85) Aspartate Amino Transf (AST/SGOT) 36 U/L (15-37) Alanine Aminotransferase (ALT/SGPT) 18 U/L (12-78) Alkaline Phosphatase 54 U/L (46-116) Total Creatine Kinase 245 U/L (26-308) Troponin I 0.158 ng/mL (0.000-0.056) C-Reactive Protein, Quantitative Pending Pro-B-Type Natriuretic Peptide 85491 pg/mL (0-125) H Total Protein 5.9 G/DL (6.4-8.2) L Albumin 2.2 G/DL (3.4-5.0) L Globulin 3.7 g/dL Albumin/Globulin Ratio 0.6 (1.0-2.7) L Amylase Level 22 U/L (25-115) L Lipase 28 U/L (73-393) L Random Vancomycin Level 10.0 ug/mL Test 04/28/18 10:50 Arterial Blood pH 7.327 (7.350-7.450) Arterial Blood Partial Pressure CO2 33.7 mmHg (35.0-45.0) L Arterial Blood Partial Pressure O2 139.8 mmHg (75.0-100.0) H Arterial Blood HCO3 17.2 mmol/L (22.0-26.0) *L Arterial Blood Oxygen Saturation 98.3 % (95-100) Arterial Blood Base Excess -7.9 (-2-2) L Aaron Test Positive Alyssa Cast DO Apr 28, 2018 17:55
--- NOTE | 2018-04-28 18:30 | Consultation ---
DATE OF CONSULTATION: 04/27/2018 NOTE: VERY POOR AUDIO CHIEF COMPLAINT: This 58-year-old right-handed man was brought in with seizure and fever. I was asked to see the patient in neurologic consultation. HISTORY OF PRESENT ILLNESS: The patient is an alcoholic, never had any seizures prior to the day before admission. The patient in fact was doing "fine" according to his daughter a couple days prior to admission. The patient apparently, according to girlfriend, had tremor lasting about 15 minutes. He also had postictal vomiting and he was then brought to the hospital being lethargic. The patient's CBC on admission revealed hemoglobin of 7.2 with normochromic normocytic indices, had a white count of 8900 with a left shift. Stated that day his white count went up to 11,100, and it started to climb, it is now 16,900. His chemistries revealed normal electrolytes. The creatinine was 1.6, BUN 15, glucose was 89, calcium was see chart, total bilirubin was 0.7. AST, ALT, and alkaline phosphatase were normal. His LDH see chart. Albumin was 3.2, total protein was 7.1. 1.5 on March 29, 2018, he was given . His C-reactive protein was 2.6 yesterday. His natriuretic peptide was see chart. CEA was 5.4, vitamin B12 was normal, TSH was 0.851 yesterday. BUN and creatinine were normal. Carbon dioxide see chart. Glucose today is 162. The patient had a chest x-ray, which revealed the heart in the upper limits of normal. He also had left mid and lower lung infiltrates and pneumonia. A CT scan of the brain reveals There is age-related volume loss and periventricular white matter chronic ischemic changes. The patient had a renal ultrasound done yesterday, which was negative for hydronephrosis . Yesterday, the patient was talking with his daughter stating full sentences and was confused. Today the patient had a chest x-ray which is worse. There is a marked increase in extensive infiltrate in left lung, which was diffuse. He also had air bronchogram involving the entire right upper lobe and some infiltrate in the right lower perihilar region, which is new since the previous study. There is a small left-sided pleural effusion. The patient continuing with mild fever. The respiratory rate increased from 12 today up to 26, then 32, and now at 33. Heart rate also went up. Blood pressure is slightly elevated. Pulse oximetry dropped from 100 at 1600 hours down to 75 in less than 2 hours at 1800 hours. The patient was then transferred to the ICU. The patient also had seen Dr. Deon Rojas who felt that the patient had acute on chronic renal failure. Ultrasound of the kidney and a 2D echocardiogram apparently has been done. The patient reported that he has been trying to cut down his alcohol intake. The patient saw Dr. James Ortiz yesterday due to fever. He thought that the patient had stomach and stomach-related problems, along with acute renal failure, anemia, hypertension. The patient had a drug screen on March 27, 2018 and his alcohol level was up to 3. There is no previous history of stroke or head injury. FAMILY HISTORY: No known family history of neurologic disease. PAST MEDICAL HISTORY/PAST MEDICAL ILLNESSES: 1. Alcohol abuse. 2. Aspiration pneumonia. 3. Probable chronic anemia, etiology unclear, possible GI bleeding. 4. History of hypertension. 5. History of kidney stones. 6. Past medical history of [id number] diabetes mellitus. 7. Hip surgery. ALLERGIES: He has no known allergies. HABITS: See above. He only smokes marijuana. According to the family, he does not smoke, but according to the medical record, he did smoke. FAMILY HISTORY: His mother is , unknown reasons. Father is in "good health." SURGERIES: He had right hip surgery because of fracture in the hip last month. REVIEW OF SYSTEMS: Not available. PHYSICAL EXAMINATION: GENERAL: The patient has some element of cachexia. The patient is a well-developed thin man, lying in bed, intubated. HEENT: His eyes are open. Examination of the head revealed no obvious lesions. NECK: Basically supple given the 2 carotids that could not be auscultated and probably +1. LUNGS: He had diffuse rhonchi bilaterally. CARDIOVASCULAR: PMI is probably in the fifth intercostal space, midclavicular line. JVP could not be observed. Heart sounds are distant. ABDOMEN: Bowel sounds were intact. Nontender. No evidence of organomegaly was noted. EXTREMITIES: There is no pedal edema. NEUROLOGIC AND MENTAL STATUS: The patient lies with his eyes open, does not answer to verbal commands or raise his extremities. There is occasional movement of the right arm to the pain. CRANIAL NERVE EXAMINATION: CRANIAL NERVE II: No reaction to threat. CRANIAL NERVES III, IV, AND : There was roving eye movement. Pupils were approximately 4 mm, round, sluggishly reactive. CRANIAL NERVE V: Corneals are intact bilaterally. CRANIAL NERVE VII: The patient closed his right eye more than his left, otherwise, face is symmetrical. CRANIAL NERVE VIII: Could not be tested. CRANIAL NERVES IX AND X: Was not tested. CRANIAL NERVE XI AND XII: Could not be tested. MUSCLE EXAMINATION: The patient was flaccid and there are no movements except for some movement in the right arm with the pain. Bulk was symmetrically decreased especially below the knees. Reflexes were 0 in the upper and lower extremities. Toes were indefinite on testing for Babinski response. Sensory examination, stimulation in the chest caused some movement in the right arm. There is no movement of his extremities to deep pain. IMPRESSION: This patient probably had a withdrawal seizure. Right now, alcohol withdrawal seizures. His encephalopathy at this point is probably related to his pneumonia that is getting worse, which could mean he had a myocardial infarction or pulmonary embolism. There were no further seizures noted. Yesterday, he could communicate with his family somewhat. However, I am going to obtain an EEG tonight. As far as doing a lumbar puncture is concerned, in my opinion the patient probably did not have meningitis. The patient is currently on antibiotics. The patient currently is on cefepime, Rocephin and vancomycin. The only other drug he is not on would be acyclovir. history is not strongly compatible with herpes simplex encephalitis. The patient is also on Flagyl as well. As far as treating him with anticonvulsants are concerned, I could put him on Keppra The patient is on lorazepam 1 mg intravenous q.2 h. as needed for alcohol withdrawal. He may not have gotten any doses. PLAN: 1. EEG tonight. 2. The patient also received transfusions and saw Dr. Mirza Greenfield in consultation for anemia, see his report. Thank you for this interesting case. James Caicedo MD DR: Loren JOB#: [id number] CC: BREE
--- NOTE | 2018-04-28 18:35 | NUR ---
NURSE NOTES: ADls done, mouth care performed.Turned and repositioned.HOB elevated to prevent aspiration.Will continue to monitor. Addendum: 04/28/18 at 1839 by Becky Balbuena RN Dr Griffin made aware Blood sugar above 400.Will continue to monitor
--- NOTE | 2018-04-28 19:44 | NUR ---
NURSE NOTES: Paged Dr Ocampo regarding the consult.Order to start patient on insulin drip.Algorythm 2.Order nnoted and carried out.Endorsed to next nurse Jeaneth and report given
--- NOTE | 2018-04-28 19:45 | NUR ---
NURSE NOTES: Report received from Becky MAGDALENO. Patient obtunded. ETT 7.5 AC [id number] 100-Peep 5. Sinus tachy on the monitor HR 110. Right NGT, NPO at this time. HOB elevated to prevent aspiration. Right femoral line running dopamine at 2mcg/hr, Midazolam 2mls/hr RASS score of -2, and 1/2 NS at 100cc. Meade intact no output in previous shift Dr. Rojas aware. No s/s of hypo/hyperglycemia. No s/s of seizure activity. Mouth care done.Turned and repositioned. Kept clean and dry. Will continue plan of care.
[2018-04-28] MEDS ORDERED: Insulin Rate Change 1 Each MISC PRN ×2 (20:00→23:15)
[2018-04-28] MEDS ORDERED: Insulin Human Regular 100units/ml 3ml IV PRN ×3 (20:00→23:15)
--- NOTE | 2018-04-28 20:19 | NUR ---
NURSE NOTES: Start Insulin drip 5units/hr ALGO 2 blood glucose 249mg/dl, regular insulin 5 units given IVP per protocol. patient in bed no s/s of seizure activity, seizure precaution maintained and observed. Titrate the Dopamine to 5mcgs/kg/hr BP 69/36. Will continue plan of care.
[2018-04-28] MEDS: Insulin Human Regular 100units/ml 3ml IV PRN ×2 (20:20→21:05)
[2018-04-28] MEDS: Dyna-Hex 2% Top Sol 2oz TOPIC SCH (20:22)
--- NOTE | 2018-04-28 20:32 | General Progress Note ---
Assessment/Plan Problem List: (1) Anemia ICD Codes: D64.9 - Anemia, unspecified SNOMED: 100770997 (2) Alcohol abuse ICD Codes: F10.10 - Alcohol abuse, uncomplicated SNOMED: 43763380 (3) Epileptic seizure, generalized ICD Codes: G40.309 - Generalized idiopathic epilepsy and epileptic syndromes, not intractable, without status epilepticus SNOMED: 76488386 Assessment/Plan lehtargic transfer to icu pna encephalopathy worsening pna hypoxia intubated spoke w dr ward extensively he wants to transfer pt to [facility] for continious eeg monitering so i wrote transfer order to [facility] if cleared by dr velarde sepsis very poor pronosis sepsis Subjective ROS Limited/Unobtainable: Yes Allergies: Coded Allergies: No Known Allergies (Unverified , 04/24/18) Objective Last 24 Hour Vital Signs Date Time Temp Pulse Resp B/P (MAP) Pulse Ox O2 Delivery O2 Flow Rate FiO2 04/28/18 20:13 69/36 04/28/18 20:00 100 04/28/18 19:33 106 33 99 Mechanical Ventilator 90 04/28/18 19:21 102 34 96 Mechanical Ventilator 90 04/28/18 19:18 102 34 90 100 04/28/18 19:17 103 31 94/46 (62) 96 04/28/18 19:00 Mechanical Ventilator 100 04/28/18 19:00 101 31 85/47 (60) 95 04/28/18 18:18 98.9 04/28/18 18:00 102 30 90/45 (60) 98 04/28/18 18:00 Mechanical Ventilator 100 04/28/18 17:48 Mechanical Ventilator 100 04/28/18 17:00 103 30 99/46 (63) 90 04/28/18 16:47 104 31 100 04/28/18 16:00 Mechanical Ventilator 04/28/18 16:00 102 30 97/50 (66) 93 04/28/18 16:00 122 04/28/18 16:00 100 04/28/18 15:16 117 33 111/50 (70) 97 04/28/18 15:09 98.9 04/28/18 15:00 106 31 87/38 (54) 97 04/28/18 14:45 109 30 100 04/28/18 14:09 98 32 92/52 (65) 94 04/28/18 14:00 99 32 89/47 (61) 94 04/28/18 13:31 100 27 100 Mechanical Ventilator 100 04/28/18 13:27 97 22 100 Mechanical Ventilator 100 04/28/18 13:00 101 28 101/55 (70) 100 04/28/18 12:53 100 30 100 04/28/18 12:00 Mechanical Ventilator 04/28/18 12:00 105 25 118/66 (83) 100 04/28/18 12:00 100 04/28/18 12:00 108 04/28/18 11:52 106 21 119/59 (79) 100 04/28/18 11:00 103 22 114/61 (78) 100 04/28/18 10:46 104 23 100 04/28/18 10:00 103 22 110/58 (75) 100 04/28/18 09:10 100 04/28/18 09:00 103 27 50 04/28/18 09:00 103 27 101/59 (73) 99 04/28/18 08:00 101 04/28/18 08:00 Mechanical Ventilator 04/28/18 08:00 100 04/28/18 08:00 99.1 104 23 103/58 (73) 100 04/28/18 07:42 96 16 100 Mechanical Ventilator 100 04/28/18 07:37 96 26 100 04/28/18 07:35 96 27 100 Mechanical Ventilator 100 04/28/18 07:00 94 27 103/58 (73) 100 04/28/18 06:45 92 23 102/61 (75) 100 04/28/18 06:30 90 21 104/57 (73) 100 04/28/18 06:00 88 21 88/54 (65) 100 04/28/18 05:30 88 21 92/55 (67) 100 04/28/18 05:16 92 26 100 04/28/18 05:15 91 20 104/60 (75) 100 04/28/18 05:00 93 22 106/62 (77) 100 04/28/18 04:45 93 18 109/65 (80) 100 04/28/18 04:30 92 22 106/62 (77) 100 04/28/18 04:00 100 04/28/18 04:00 99.1 92 22 106/63 (77) 100 04/28/18 04:00 73 3/16/19 04:00 Mechanical Ventilator 04/28/18 03:45 94 27 99/60 (73) 100 04/28/18 03:30 93 22 100/59 (73) 100 04/28/18 03:01 94 25 100 04/28/18 03:00 95 22 96/55 (69) 100 04/28/18 02:30 94 20 95/55 (68) 100 04/28/18 02:15 98 23 99/59 (72) 100 04/28/18 02:00 97 24 99/58 (72) 99 04/28/18 01:32 101 34 97 Mechanical Ventilator 100 04/28/18 01:30 97 19 94/57 (69) 98 04/28/18 01:22 99 27 96 Mechanical Ventilator 100 04/28/18 01:21 99 27 100 04/28/18 01:00 64/49 04/28/18 01:00 99.1 103 27 113/66 (82) 92 04/28/18 00:00 100 04/28/18 00:00 110 04/28/18 00:00 Mechanical Ventilator 04/28/18 00:00 75 22 57/18 (31) 100 04/27/18 23:30 88 19 95/20 (45) 100 04/27/18 23:05 90 19 100 04/27/18 23:00 91 20 89/19 (42) 100 04/27/18 22:30 94 23 93/19 (43) 100 04/27/18 22:14 99.9 04/27/18 22:00 99.9 104 21 131/46 (74) 100 04/27/18 21:50 4 Mechanical Ventilator 100 04/27/18 21:30 107 35 100 04/27/18 21:00 100.5 103 29 158/131 (140) 99 Intake and Output 04/27/18 04/28/18 19:00 07:00 Intake Total 150 ml 933.0 ml Output Total 150 ml 175 ml Balance 0 ml 758.0 ml Intake Oral 150 ml IV Total 933.0 ml Output Urine Total 150 ml 175 ml # Voids 1 Laboratory Tests 04/28/18 00:39: Arterial Blood pH 7.252L, Arterial Blood Partial Pressure CO2 32.9L, Arterial Blood Partial Pressure O2 49.8*L, Arterial Blood HCO3 14.2*L, Arterial Blood Oxygen Saturation 78.6*L, Arterial Blood Base Excess -12.0*L, Aaron Test Positive 04/28/18 03:08: Urine Color Brown, Urine Appearance Cloudy, Urine pH 5, Urine Specific [place] 1.025, Urine Protein 3+H, Urine Glucose (UA) Negative, Urine Ketones 2+H, Urine Blood 1+H, Urine Nitrite Negative, Urine Bilirubin Negative, Urine Urobilinogen Normal, Urine Leukocyte Esterase 1+H, Urine RBC 5-10H, Urine WBC 2-4, Urine Squamous Epithelial Cells Occasional, Urine Amorphous Sediment ModerateH, Urine Bacteria ModerateH, Urine Eosinophils None seen 04/28/18 06:14: White Blood Count 16.4H, Red Blood Count 2.74L, Hemoglobin 8.6L, Hematocrit 26.5L, Mean Corpuscular Volume 97, Mean Corpuscular Hemoglobin 31.4H, Mean Corpuscular Hemoglobin Concent 32.5, Red Cell Distribution Width 12.9, Platelet Count 114L, Mean Platelet Volume 6.9, Neutrophils (%) (Auto) , Lymphocytes (%) ( Auto) , Monocytes (%) (Auto) , Eosinophils (%) (Auto) , Basophils (%) (Auto) , Differential Total Cells Counted 100, Neutrophils % (Manual) 86H, Lymphocytes % (Manual) 7L, Monocytes % (Manual) 1, Eosinophils % (Manual) 0, Basophils % ( Manual) 0, Band Neutrophils 6, Platelet Estimate DecreasedL, Platelet Morphology Normal, Hypochromasia 2+, Anisocytosis 1+, Sodium Level 142, Potassium Level 3.9, Chloride Level 108H, Carbon Dioxide Level 17L, Anion Gap 18H, Blood Urea Nitrogen 52H, Creatinine 3.5H, Estimat Glomerular Filtration Rate 18.1, Glucose Level 409#H, Uric Acid 8.6H, Calcium Level 8.0L, Phosphorus Level 4.1, Magnesium Level 2.2, Total Bilirubin 0.5, Gamma Glutamyl Transpeptidase 34, Aspartate Amino Transf (AST/SGOT) 36, Alanine Aminotransferase (ALT/SGPT) 18, Alkaline Phosphatase 54, Total Creatine Kinase 245, Troponin I 0.158H, C-Reactive Protein, Quantitative [Pending], Pro-B-Type Natriuretic Peptide 85730J, Total Protein 5.9L, Albumin 2.2L, Globulin 3.7, Albumin/Globulin Ratio 0.6L, Amylase Level 22L, Lipase 28L, Random Vancomycin Level 10.0 04/28/18 10:50: Arterial Blood pH 7.327L, Arterial Blood Partial Pressure CO2 33.7L, Arterial Blood Partial Pressure O2 139.8H, Arterial Blood HCO3 17.2*L, Arterial Blood Oxygen Saturation 98.3, Arterial Blood Base Excess -7.9L, Aaron Test Positive Height (Feet): 5 Height (Inches): 10.00 Weight (Pounds): 163 General Appearance: lethargic, confused Respiratory/Chest: rhonchi - bilaterally Abdomen: soft Farhan Joaquin MD Apr 28, 2018 20:32
[2018-04-28 21:30] LABS: ANION GAP 12 mmol/L (5-15); BLOOD UREA NITROGEN 57 mg/dL (7-18); CALCIUM 7.9 MG/DL (8.5-10.1); CARBON DIOXIDE 20 MMOL/L (21-32); CHLORIDE 109 MMOL/L (98-107); POTASSIUM 3.1 MMOL/L (3.5-5.1); SODIUM 141 MMOL/L (136-145)
--- NOTE | 2018-04-28 21:50 | NUR ---
NURSE NOTES: Left message to Dr. Cast regarding the patient on Dopamine drip 8mcgs/kg/min bp 93/46 HR 129, waiting for Dr. Cast return call. charge nurse aware.
--- NOTE | 2018-04-28 22:30 | NUR ---
NURSE NOTES: Patients daughter Gissel Cortez called and updated regrading the patient condition.
--- NOTE | 2018-04-28 23:39 | NUR ---
NURSE NOTES: Changed Insulin drip to Algorithm 3 per protocol. Charge nurse aware.
[2018-04-29] VITALS (72 sets, daily range): BP systolic 63–143; BP diastolic 39–72
[2018-04-29] MEDS: Piperacillin/Tazobactam 3.375 GM in NS 110 ML IVPB SCH ×3 (00:25→23:56)
[2018-04-29] MEDS: Albuterol/Ipratropium 3ml neb HHN SCH ×4 (01:13→20:00)
--- NOTE | 2018-04-29 01:30 | NUR ---
NURSE NOTES: Dopamine 6mcg/kg/min BP83/72 HR 121. Insulin drip algo 3 at 3units/hr, no s/s of hypo/hyperglycemia. Continue Midazolam 2mls/hr RASS score -2. No eye opening or movements at this time. Will continue to monitor patient.
[2018-04-29] MEDS: DOPamine 400mg/250ml 250 ML IV SCH (02:37)
--- NOTE | 2018-04-29 03:14 | NUR ---
NURSE NOTES: Blood glucose 89mg/dl titrate insulin drip to 0.5 units/hr ALGO 3 per protocol. Repositioned. Meade draining 5cc urine. Will continue to monitor patient.
--- NOTE | 2018-04-29 04:14 | NUR ---
NURSE NOTES: Bed bath given tolerated well. Titrate Dopamine to 5mcg/kg/min BP 101/62. Blood glucose 111mg/dl Insulin drip algo 3 2units/hr. Patient obtunded, no s/s of acute distress noted. Temp 98 Axillary. Frequent visual checks continued.
--- NOTE | 2018-04-29 05:00 | NUR ---
NURSE NOTES: Blood glucose 71mg/dl per algorithm 3 turn off infusion and recheck in 30 min.
--- NOTE | 2018-04-29 05:30 | NUR ---
NURSE NOTES: blood glucose 77mg/dl will hold for 30 min and recheck blood glucose per algorithm 3 protocol. Addendum: 04/29/18 at 0614 by AGUSTIN WHALEN RN RN algo 2 Addendum: 04/29/18 at 0615 by AGUSTIN WHALEN RN RN blood glucose 72mg/dl
--- NOTE | 2018-04-29 06:00 | NUR ---
NURSE NOTES: blood glucose 77mg/dl will hold for 30 min and recheck blood glucose per algorithm 1 protocol. Repositioned. Will continue plan of care.
[2018-04-29 06:22] LABS: HEMOGLOBIN 8.7 G/DL (14.2-18.0); MEAN CORPUSCULAR VOLUME 99 FL (80-99); PLATELET COUNT 114 K/UL (150-450); RED BLOOD COUNT 2.83 M/UL (4.70-6.10); WHITE BLOOD COUNT 15.7 K/UL (4.8-10.8)
--- NOTE | 2018-04-29 06:30 | NUR ---
NURSE NOTES: blood glucose 86mg/dl will per algorithm 1 protocol resume insulin drip 0.1units/hr. Repositioned. Will continue plan of care.
[2018-04-29 06:38] LABS: ALANINE AMINOTRANSFERASE 15 U/L (12-78); ALBUMIN 2.4 G/DL (3.4-5.0); ALBUMIN/GLOBULIN RATIO 0.6 (1.0-2.7); ALKALINE PHOSPHATASE 59 U/L (46-116); ANION GAP 13 mmol/L (5-15); ASPARTATE AMINO TRANSFERASE 29 U/L (15-37); BILIRUBIN,TOTAL 0.4 MG/DL (0.2-1.0); BLOOD UREA NITROGEN 57 mg/dL (7-18); CALCIUM 8.5 MG/DL (8.5-10.1); CARBON DIOXIDE 19 MMOL/L (21-32); CHLORIDE 109 MMOL/L (98-107); PHOSPHORUS 3.7 MG/DL (2.5-4.9); POTASSIUM 3.5 MMOL/L (3.5-5.1); SODIUM 141 MMOL/L (136-145)
--- NOTE | 2018-04-29 06:57 | Pulmonolgy Critical Care Note ---
Critical Care - Asmt/Plan Assessment/Plan: Problems: (1) ? DKA gap acidosis, ketones, hyperglycemia over 400 (2) Bilateral pneumonia (3) Hypoxemia (4) Renal failure (ARF), acute on chronic (5) Diabetic nephropathy (6) Epileptic seizure, generalized (7) Marijuana abuse (8) Alcohol abuse (9) Alcohol withdrawal (10) Anemia Assessment/Plan: -needs endo eval and suspect insulin drip -on vent, FU abg -monitor gap IVF for now may need more than 100 cc hour -RTC and PRN DUOnebs -Cefepime/Vanco/Flagyl per ID, F/U Cx's -EEG ordered, needs to be seen by neuro, ? 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 Discussed with: nurses Critical Care - Objective Last 24 Hour Vital Signs Date Time Temp Pulse Resp B/P (MAP) Pulse Ox O2 Delivery O2 Flow Rate FiO2 04/29/18 06:45 98 34 63/39 (47) 100 04/29/18 06:44 98 33 71/41 (51) 100 04/29/18 06:30 104 36 80/43 (55) 100 04/29/18 06:15 110 36 105/61 (76) 100 04/29/18 06:00 36 Endotracheal Tube 100 04/29/18 06:00 91/48 04/29/18 06:00 110 37 91/48 (62) 100 04/29/18 05:45 110 36 98/50 (66) 100 04/29/18 05:36 109 36 100 100 04/29/18 05:30 112 29 110/47 (68) 04/29/18 05:15 112 37 95/56 (69) 04/29/18 05:00 111 36 99/50 (66) 04/29/18 05:00 35 Endotracheal Tube 100 04/29/18 05:00 99/58 04/29/18 04:45 113 36 105/52 (69) 100 04/29/18 04:30 113 35 91/59 (70) 100 04/29/18 04:15 112 35 95/48 (64) 100 04/29/18 04:00 33 Endotracheal Tube 100 04/29/18 04:00 101/62 04/29/18 04:00 110 04/29/18 04:00 100 04/29/18 04:00 98.0 113 36 101/62 (75) 100 04/29/18 03:45 117 33 105/61 (76) 100 04/29/18 03:30 118 37 101/54 (70) 100 04/29/18 03:24 116 30 100 100 04/29/18 03:15 118 35 109/50 (69) 100 04/29/18 03:00 35 Endotracheal Tube 100 04/29/18 03:00 104/58 04/29/18 03:00 119 34 104/56 (72) 100 04/29/18 02:45 118 35 95/51 (66) 100 04/29/18 02:37 98/53 04/29/18 02:30 119 35 98/53 (68) 100 04/29/18 02:15 120 36 117/52 (73) 100 04/29/18 02:00 119 35 104/53 (70) 100 04/29/18 02:00 33 Endotracheal Tube 100 04/29/18 02:00 104/53 04/29/18 01:45 120 37 100/51 (67) 99 04/29/18 01:33 122 31 101/51 (68) 100 04/29/18 01:30 121 34 83/72 (76) 99 04/29/18 01:22 120 30 100 Mechanical Ventilator 100 04/29/18 01:15 120 34 96/54 (68) 98 04/29/18 01:12 124 37 95 Mechanical Ventilator 100 04/29/18 01:10 123 37 100 100 04/29/18 01:00 121 34 90/54 (66) 98 04/29/18 01:00 36 Endotracheal Tube 100 04/29/18 01:00 90/54 04/29/18 00:45 120 34 101/59 (73) 98 04/29/18 00:30 123 33 98/50 (66) 96 04/29/18 00:15 121 32 93/55 (68) 95 04/29/18 00:00 Mechanical Ventilator 04/29/18 00:00 100 04/29/18 00:00 98.0 125 31 97/52 (67) 100 04/29/18 00:00 33 Endotracheal Tube 100 04/29/18 00:00 97/52 04/29/18 00:00 116 04/28/18 23:45 124 33 97/48 (64) 04/28/18 23:30 123 34 90/50 (63) 04/28/18 23:15 97.5 123 32 92/47 (62) 04/28/18 23:00 124 34 104/52 (69) 04/28/18 23:00 33 Endotracheal Tube 100 04/28/18 23:00 92/47 04/28/18 22:59 122 34 100 100 04/28/18 22:45 122 32 88/54 (65) 04/28/18 22:30 121 32 89/47 (61) 04/28/18 22:15 123 31 98/52 (67) 04/28/18 22:10 124 31 91/49 (63) 04/28/18 22:00 124 31 88/46 (60) 04/28/18 22:00 32 Endotracheal Tube 100 04/28/18 22:00 94/47 04/28/18 21:45 125 31 94/47 (63) 04/28/18 21:15 120 28 93/46 (62) 04/28/18 21:00 127 30 88/48 (61) 04/28/18 21:00 27 Endotracheal Tube 100 04/28/18 21:00 88/48 04/28/18 20:56 125 30 100 100 04/28/18 20:30 125 29 93/46 (62) 04/28/18 20:15 99 24 83/38 (53) 04/28/18 20:13 69/36 04/28/18 20:09 86 19 69/36 (47) 76 04/28/18 20:03 85 19 48/19 (29) 75 04/28/18 20:00 100 04/28/18 20:00 Mechanical Ventilator 04/28/18 20:00 98.5 82 18 68/36 (47) 73 04/28/18 20:00 27 Endotracheal Tube 100 04/28/18 19:38 107 04/28/18 19:33 106 33 99 Mechanical Ventilator 90 04/28/18 19:21 102 34 96 Mechanical Ventilator 90 04/28/18 19:18 102 34 90 100 04/28/18 19:17 103 31 94/46 (62) 96 04/28/18 19:00 Mechanical Ventilator 100 04/28/18 19:00 101 31 85/47 (60) 95 04/28/18 18:18 98.9 04/28/18 18:00 102 30 90/45 (60) 98 04/28/18 18:00 Mechanical Ventilator 100 04/28/18 17:48 Mechanical Ventilator 100 04/28/18 17:00 103 30 99/46 (63) 90 04/28/18 16:47 104 31 100 04/28/18 16:00 Mechanical Ventilator 04/28/18 16:00 102 30 97/50 (66) 93 04/28/18 16:00 122 04/28/18 16:00 100 04/28/18 15:16 117 33 111/50 (70) 97 04/28/18 15:09 98.9 04/28/18 15:00 106 31 87/38 (54) 97 04/28/18 14:45 109 30 100 04/28/18 14:09 98 32 92/52 (65) 94 04/28/18 14:00 99 32 89/47 (61) 94 04/28/18 13:31 100 27 100 Mechanical Ventilator 100 04/28/18 13:27 97 22 100 Mechanical Ventilator 100 04/28/18 13:00 101 28 101/55 (70) 100 04/28/18 12:53 100 30 100 04/28/18 12:00 Mechanical Ventilator 04/28/18 12:00 105 25 118/66 (83) 100 04/28/18 12:00 100 04/28/18 12:00 108 04/28/18 11:52 106 21 119/59 (79) 100 04/28/18 11:00 103 22 114/61 (78) 100 04/28/18 10:46 104 23 100 04/28/18 10:00 103 22 110/58 (75) 100 04/28/18 09:10 100 04/28/18 09:00 103 27 50 04/28/18 09:00 103 27 101/59 (73) 99 04/28/18 08:00 101 04/28/18 08:00 Mechanical Ventilator 04/28/18 08:00 100 04/28/18 08:00 99.1 104 23 103/58 (73) 100 04/28/18 07:42 96 16 100 Mechanical Ventilator 100 04/28/18 07:37 96 26 100 04/28/18 07:35 96 27 100 Mechanical Ventilator 100 04/28/18 07:00 94 27 103/58 (73) 100 Status: sedated Condition: critical Lungs: rhonchi Heart: HR/BP unstable Abdomen: soft, non-tender Extremities: edema Micro: Microbiology Date/Time Source Procedure Growth Status 04/28/18 06:00 Sputum Gram Stain - Final Resulted 04/28/18 06:00 Sputum Sputum Culture - Preliminary NO GROWTH Resulted 04/28/18 03:08 Urine,Clean Catch Urine Culture - Preliminary NO GROWTH AFTER 24 HOURS Resulted Accucheck: 77 Critical Care - Subjective ROS Limited/Unobtainable: Yes Condition: critical FI02: 100 Vent Support Breath Rate: 16 Vent Support Mode: AC Vent Tidal Volume: 600 Sputum Amount: Small PEEP: 5.0 PIP: 23 I&O: Intake and Output 04/28/18 04/29/18 19:00 07:00 Intake Total 2041.538 ml 1525.873 ml Output Total 25 ml 36 ml Balance 2016.538 ml 1489.873 ml IV Total 2041.538 ml 1525.873 ml Output Urine Total 25 ml 36 ml Subjective: remains sedated on the vent insulin drip started yeserday bs better controlled in IVF no bleeding hypotensive and on pressors no seizure activity noted positive uop troponin positive ET-Tube: 7.5 ET Position: 23 Labs: Microbiology Date/Time Source Procedure Growth Status 04/28/18 06:00 Sputum Gram Stain - Final Resulted 04/28/18 06:00 Sputum Sputum Culture - Preliminary NO GROWTH Resulted 04/28/18 03:08 Urine,Clean Catch Urine Culture - Preliminary NO GROWTH AFTER 24 HOURS Resulted Current Medications Medications (Trade) Dose Ordered Sig/Bj Route PRN Reason Start Time Stop Time Status Last Admin Dose Admin Acetaminophen (Tylenol) 650 mg Q4H PRN ORAL Mild Pain/Temp > 100.5 04/27/18 21:30 05/27/18 21:29 04/27/18 21:44 Acetaminophen (Tylenol) 650 mg Q4H PRN RECTAL Mild Pain (Pain Scale 1-3) 04/27/18 21:30 05/27/18 21:29 04/28/18 14:39 Acyclovir 1000 mg/ Sodium Chloride 275 ml @ 275 mls/hr Q24HRS IV 04/29/18 09:00 05/29/18 08:59 Albuterol/ Ipratropium (Albuterol/ Ipratropium) 3 ml Q4H PRN HHN Shortness of Breath 04/27/18 21:45 05/02/18 17:44 Albuterol/ Ipratropium (Albuterol/ Ipratropium) 3 ml Q6HRT HHN 04/28/18 01:00 05/02/18 18:59 04/29/18 01:13 Allopurinol (Zyloprim) 200 mg DAILY NG 04/29/18 09:00 05/28/18 08:59 Chlorhexidine Gluconate (Lidia-Hex 2%) 1 applic DAILY@2000 TOPIC 04/28/18 20:00 05/28/18 19:59 04/28/18 20:22 Clonidine HCl (Catapres Tab) 0.1 mg Q4H PRN ORAL bp over 160 syst 04/27/18 21:30 05/26/18 21:29 Dextrose (Dextrose 50%) 25 ml Q30M PRN IV HYPOGLYCEMIA 04/29/18 07:00 05/29/18 06:59 Dextrose (Dextrose 50%) 25 ml Q30M PRN IV Hypoglycemia 04/29/18 07:30 05/29/18 07:29 UNV Dextrose (Dextrose 50%) 50 ml Q30M PRN IV HYPOGLYCEMIA 04/29/18 07:00 05/29/18 06:59 Dextrose (Dextrose 50%) 50 ml Q30M PRN IV Hypoglycemia 04/29/18 07:30 05/29/18 07:29 UNV Dopamine HCl/ Dextrose 250 ml @ 0 mls/hr Q24H IV 04/28/18 01:00 05/28/18 00:59 04/29/18 02:37 Gadobutrol (Gadavist) 7.5 mmol NOW PRN IV Radiology Procedure 04/28/18 08:00 05/02/18 03:35 Heparin Sodium (Porcine) (Heparin 5000 units/ml) 5,000 units EVERY 12 HOURS SUBQ 04/28/18 09:00 05/27/18 20:59 04/28/18 20:24 Insulin Aspart (NovoLOG) EVERY 4 HOURS SUBQ 04/29/18 09:00 05/29/18 08:59 UNV Insulin Detemir (Levemir) 6 units BID SUBQ 04/29/18 09:00 05/29/18 08:59 UNV Insulin Human Regular (NovoLIN R) 5 units PRN PRN IV BS 200-299 04/29/18 07:00 05/29/18 06:59 Insulin Human Regular (NovoLIN R) 10 units PRN PRN IV BS=>300 04/29/18 07:00 05/29/18 06:59 Insulin Human Regular 100 units/ Sodium Chloride 101 ml @ 0 mls/hr Q24H IV 04/29/18 07:00 05/29/18 06:59 04/29/18 07:00 Levetiracetam 250 mg/Sodium Chloride 112.5 ml @ 450 mls/hr Q12HR IV 04/27/18 22:00 05/27/18 21:59 04/28/18 20:37 Lorazepam (Ativan 2mg/ml 1ml) 1 mg Q2H PRN IV alcohol withdraw, seizure 04/27/18 21:15 05/02/18 11:07 Metoclopramide HCl (Reglan) 10 mg Q6H PRN IVP Nausea & Vomiting 04/27/18 21:30 05/27/18 21:29 Midazolam HCl 100 ml @ 2 mls/hr Q24H IVPB 04/28/18 16:15 05/05/18 16:14 04/28/18 17:48 Miscellaneous Medication (Insulin Rate Change) 1 ea PRN PRN MISC HYPERGLYCEMIA 04/29/18 07:00 05/29/18 06:59 Norepinephrine Bitartrate 8 mg/ Dextrose 508 ml @ 0 mls/hr Q24H IV 04/29/18 07:45 05/29/18 07:44 Ondansetron HCl (Zofran) 4 mg Q6H PRN IVP Nausea & Vomiting 04/27/18 21:30 05/27/18 21:29 Pantoprazole (Protonix) 40 mg EVERY 12 HOURS IVP 04/28/18 09:00 05/25/18 20:59 04/28/18 20:22 Phenytoin 300 mg/ Sodium Chloride 116 ml @ 120 mls/hr DAILY IVPB 04/28/18 09:00 05/28/18 08:59 04/28/18 10:22 Piperacillin Sod/ Tazobactam Sod 3.375 gm/Sodium Chloride 110 ml @ 27.5 mls/hr Q12H IVPB 04/29/18 00:00 05/06/18 00:00 04/29/18 00:25 Sodium Chloride 1,000 ml @ 100 mls/hr Q10H IV 04/28/18 13:30 05/28/18 13:29 04/28/18 23:02 Thiamine HCl 100 mg/Sodium Chloride 56 ml @ 112 mls/hr Q24H IVPB 04/29/18 15:00 05/29/18 14:59 Laboratory Tests Test 04/28/18 10:50 04/28/18 20:40 04/29/18 05:18 Arterial Blood pH 7.327 (7.350-7.450) Arterial Blood Partial Pressure CO2 33.7 mmHg (35.0-45.0) L Arterial Blood Partial Pressure O2 139.8 mmHg (75.0-100.0) H Arterial Blood HCO3 17.2 mmol/L (22.0-26.0) *L Arterial Blood Oxygen Saturation 98.3 % (95-100) Arterial Blood Base Excess -7.9 (-2-2) L Aaron Test Positive Sodium Level 141 MMOL/L (136-145) 141 MMOL/L (136-145) Potassium Level 3.1 MMOL/L (3.5-5.1) L 3.5 MMOL/L (3.5-5.1) Chloride Level 109 MMOL/L (98-107) H 109 MMOL/L (98-107) H Carbon Dioxide Level 20 MMOL/L (21-32) L 19 MMOL/L (21-32) L Anion Gap 12 mmol/L (5-15) 13 mmol/L (5-15) Blood Urea Nitrogen 57 mg/dL (7-18) H 57 mg/dL (7-18) H Creatinine 4.0 MG/DL (0.55-1.30) H 4.0 MG/DL (0.55-1.30) H Estimat Glomerular Filtration Rate 15.6 mL/min (>60) 15.6 mL/min (>60) Glucose Level 244 MG/DL (74-106) #H 67 MG/DL (74-106) #L Hemoglobin A1c 5.8 % (4.3-6.0) Calcium Level 7.9 MG/DL (8.5-10.1) L 8.5 MG/DL (8.5-10.1) C-Reactive Protein, Quantitative 56.1 mg/dL (0.00-0.90) H White Blood Count 15.7 K/UL (4.8-10.8) H Red Blood Count 2.83 M/UL (4.70-6.10) L Hemoglobin 8.7 G/DL (14.2-18.0) L Hematocrit 28.0 % (42.0-52.0) L Mean Corpuscular Volume 99 FL (80-99) Mean Corpuscular Hemoglobin 30.8 PG (27.0-31.0) Mean Corpuscular Hemoglobin Concent 31.2 G/DL (32.0-36.0) L Red Cell Distribution Width 13.0 % (11.6-14.8) Platelet Count 114 K/UL (150-450) L Mean Platelet Volume 7.1 FL (6.5-10.1) Neutrophils (%) (Auto) % (45.0-75.0) Lymphocytes (%) (Auto) % (20.0-45.0) Monocytes (%) (Auto) % (1.0-10.0) Eosinophils (%) (Auto) % (0.0-3.0) Basophils (%) (Auto) % (0.0-2.0) Neutrophils % (Manual) Pending Lymphocytes % (Manual) Pending Platelet Estimate Pending Platelet Morphology Pending Uric Acid 8.4 MG/DL (2.6-7.2) H Phosphorus Level 3.7 MG/DL (2.5-4.9) Magnesium Level 2.0 MG/DL (1.8-2.4) Total Bilirubin 0.4 MG/DL (0.2-1.0) Aspartate Amino Transf (AST/SGOT) 29 U/L (15-37) Alanine Aminotransferase (ALT/SGPT) 15 U/L (12-78) Alkaline Phosphatase 59 U/L (46-116) Troponin I 0.118 ng/mL (0.000-0.056) Pro-B-Type Natriuretic Peptide 92382 pg/mL (0-125) H Total Protein 6.3 G/DL (6.4-8.2) L Albumin 2.4 G/DL (3.4-5.0) L Globulin 3.9 g/dL Albumin/Globulin Ratio 0.6 (1.0-2.7) L Phenytoin (Dilantin) Level Pending Alyssa Cast DO Apr 29, 2018 06:57
[2018-04-29] MEDS ORDERED: Insulin Human Regular 100units/ml 3ml IV PRN ×2 (07:00)
[2018-04-29] MEDS ORDERED: Insulin Rate Change 1 Each MISC PRN (07:00)
--- NOTE | 2018-04-29 07:00 | NUR ---
Received Patient on Vent settings of AC 16, VT 600, FIO2 100%, PEEP +5. Pt intubated with ETT 7.5 at 23cm lipline, secured by anchorfast. Patient is currently nonresponsive. Breath sounds rhonchi bilaterally, sxn small amounts of clear secretions. Vent plugged into red outlet, ambubag at bedside. Pt resting comfortably, in no apparent distress at this time. Will continue to monitor patient.
--- NOTE | 2018-04-29 07:37 | NUR ---
HAND-OFF: Report given to Mimi MAGDALENO.Patient's daughter at bedside. Dr. Cast and Dr Ocampo came with new orders noted and carried. Dr. Cast and Dr. Ocampo spoke with daughter and updated regarding the patient condition. Arielle called waiting for financial clearance.
--- NOTE | 2018-04-29 07:38 | NUR ---
NURSE NOTES: Report received from Chela MAGDALENO. Pt is obtunded. Pupils sluggish, 3-4. ETT 7.[address] at 22cm at lipline, AC16, TV600, Peep 5, FIO2 100%, O2sat 100%, breathing rate 38-39, labored breathing noted. Sinus Tachy on monitor 110's. Afebrile T98.1F oral. IV acces right femoral TLC, and right wrist #22G, infusing Versed at 1mg/hr, Dopamine 6mcg/kg/min, Insulin Drip 0.1unit/hr per Algo 1, 0.45% NS at 100mL/hour. Meade catheter in place, draining clear/yellow urine with very low output, per choir singer total output 51ml. Skin is intact. NG tube in right nares, currently NPO, per Dr Caicedo feeding is currently on hold until further notice. Pt is on aspiration/fall/seizure precautions, head of bed at 30degrees, bed in lowest position, three side rails up, brakes engaged, alarm on, side rails padded, bilateral heel protectors on. Mouth care provided. Will continue to monitor pt and follow plan of care.
--- NOTE | 2018-04-29 08:00 | NUR ---
NURSE NOTES: Dr Ocampo at bedside, per MD insulin drip to be dc'd, replace with novolog Q4hr and Levemir BID. Will follow plan of care.
[2018-04-29] MEDS ORDERED: Acyclovir 1,000 MG in D5W 275 ML IV SCH (09:00)
[2018-04-29] MEDS: Pantoprazole Inj IVP SCH ×2 (09:20→21:24)
[2018-04-29] MEDS: Heparin 5000 units/ml inj SUBQ SCH ×2 (09:20→21:00)
[2018-04-29] MEDS: Allopurinol 100mg Tab NG SCH (09:21)
[2018-04-29] MEDS: NovoLOG Insulin Flexpen SUBQ SCH ×4 (09:29→21:26)
[2018-04-29] MEDS: LEVETIRACETAM IV SCH ×2 (09:30→21:00)
[2018-04-29] MEDS: NS IV SCH ×2 (09:30→21:00)
[2018-04-29] MEDS: Acyclovir 1,000 MG in NS 275 ML IV SCH (09:30)
[2018-04-29] MEDS: Levemir Flexpen SUBQ SCH ×2 (09:30→18:10)
[2018-04-29] MEDS: NS IVPB SCH (09:31)
[2018-04-29] MEDS: PHENYTOIN IVPB SCH (09:31)
--- NOTE | 2018-04-29 10:00 | NUR ---
RD ASSESSMENT & RECOMMENDATIONS SEE CARE ACTIVITY FOR COMPLETE ASSESSMENT DAILY ESTIMATED NEEDS: Needs based on Critical care, DM 74kg 22-28 kcals/kg 7952-7360 total kcals 1.2-2 g protein/kg 89-148 g total protein 25-30 mL/kg 9572-6268 total fluid mLs NUTRITION DIAGNOSIS: 1) Swallowing difficulty r/t respiratory status as evidenced by s/p code blue, pt is orally intubated, on pressor support, NPO at this time. 2) Altered nutrition related lab values r/t clinical status as evidenced by A1C 6.4, 5.8, elev WBC (15.7), low Hgb (8.7), BG 409, now trending down, creat elev (4.0). CURRENT DIET: NPO ENTERAL NUTRITION RECOMMENDATIONS: Glucerna 1.2 @47ml/hr x24 hrs to provide 1128ml, 1692 kcal, 93g prot, 856ml free H2O Consider TROPHIC FEEDS without hemodynamic stability -- * With improved BP, Levo <5mcg, rec to start non oral feeds of Glucerna 1.5. * Start @17ml/hr for 6 hrs, advanced as tolerated 10ml/hr q4-6 hrs to goal of 47ml/hr x24 hrs * Flush per MD/ HOB over 30 degrees --- IF DILANTIN IS CHANGED TO PO PLEASE INFORM RD FOR RATE CHANGE TO MEET EST NEEDS TF WILL BE HELD ADDITIONAL RECOMMENDATIONS: - Monitor for hemodynamic stability and ability to feeds - Monitor renal fxn/ lytes; need for TF rec change - Rec Thiamine/ Mg/ MVI for h/o ETOH abuse - Calibrated bed scale wts
--- NOTE | 2018-04-29 10:18 | General Progress Note ---
Assessment/Plan Problem List: (1) Renal insufficiency ICD Codes: N28.9 - Disorder of kidney and ureter, unspecified SNOMED: 801388523, 182920859 (2) Marijuana abuse ICD Codes: F12.10 - Cannabis abuse, uncomplicated SNOMED: 09517450 (3) Anemia ICD Codes: D64.9 - Anemia, unspecified SNOMED: 277266989 (4) Alcohol abuse ICD Codes: F10.10 - Alcohol abuse, uncomplicated SNOMED: 72796889 (5) Epileptic seizure, generalized ICD Codes: G40.309 - Generalized idiopathic epilepsy and epileptic syndromes, not intractable, without status epilepticus SNOMED: 69709070 (6) Diabetic nephropathy ICD Codes: E11.21 - Type 2 diabetes mellitus with diabetic nephropathy SNOMED: 826984089 Assessment/Plan monitor labs icu care fu pulm hold NGTF per neurology pending possible transfer to [facility] Subjective ROS Limited/Unobtainable: No Allergies: Coded Allergies: No Known Allergies (Unverified , 04/24/18) Subjective intubated and transferred to icu Objective Last 24 Hour Vital Signs Date Time Temp Pulse Resp B/P (MAP) Pulse Ox O2 Delivery O2 Flow Rate FiO2 04/29/18 09:11 104 41 100 100 04/29/18 07:50 110/48 04/29/18 07:32 Mechanical Ventilator 100 04/29/18 07:32 Mechanical Ventilator 04/29/18 07:29 117 38 100 100 04/29/18 07:00 38 Endotracheal Tube 100 04/29/18 07:00 85/45 04/29/18 06:45 98 34 63/39 (47) 100 04/29/18 06:44 98 33 71/41 (51) 100 04/29/18 06:30 104 36 80/43 (55) 100 04/29/18 06:15 110 36 105/61 (76) 100 04/29/18 06:00 36 Endotracheal Tube 100 04/29/18 06:00 91/48 04/29/18 06:00 110 37 91/48 (62) 100 04/29/18 05:45 110 36 98/50 (66) 100 04/29/18 05:36 109 36 100 100 04/29/18 05:30 112 29 110/47 (68) 04/29/18 05:15 112 37 95/56 (69) 04/29/18 05:00 111 36 99/50 (66) 04/29/18 05:00 35 Endotracheal Tube 100 04/29/18 05:00 99/58 04/29/18 04:45 113 36 105/52 (69) 100 04/29/18 04:30 113 35 91/59 (70) 100 04/29/18 04:15 112 35 95/48 (64) 100 04/29/18 04:00 Mechanical Ventilator 04/29/18 04:00 33 Endotracheal Tube 100 04/29/18 04:00 101/62 04/29/18 04:00 110 04/29/18 04:00 100 04/29/18 04:00 98.0 113 36 101/62 (75) 100 04/29/18 03:45 117 33 105/61 (76) 100 04/29/18 03:30 118 37 101/54 (70) 100 04/29/18 03:24 116 30 100 100 04/29/18 03:15 118 35 109/50 (69) 100 04/29/18 03:00 35 Endotracheal Tube 100 04/29/18 03:00 104/58 04/29/18 03:00 119 34 104/56 (72) 100 04/29/18 02:45 118 35 95/51 (66) 100 04/29/18 02:37 98/53 04/29/18 02:30 119 35 98/53 (68) 100 04/29/18 02:15 120 36 117/52 (73) 100 04/29/18 02:00 119 35 104/53 (70) 100 04/29/18 02:00 33 Endotracheal Tube 100 04/29/18 02:00 104/53 04/29/18 01:45 120 37 100/51 (67) 99 04/29/18 01:33 122 31 101/51 (68) 100 04/29/18 01:30 121 34 83/72 (76) 99 04/29/18 01:22 120 30 100 Mechanical Ventilator 100 04/29/18 01:15 120 34 96/54 (68) 98 04/29/18 01:12 124 37 95 Mechanical Ventilator 100 04/29/18 01:10 123 37 100 100 04/29/18 01:00 121 34 90/54 (66) 98 04/29/18 01:00 36 Endotracheal Tube 100 04/29/18 01:00 90/54 04/29/18 00:45 120 34 101/59 (73) 98 04/29/18 00:30 123 33 98/50 (66) 96 04/29/18 00:15 121 32 93/55 (68) 95 04/29/18 00:00 Mechanical Ventilator 04/29/18 00:00 100 04/29/18 00:00 98.0 125 31 97/52 (67) 100 04/29/18 00:00 33 Endotracheal Tube 100 04/29/18 00:00 97/52 04/29/18 00:00 116 04/28/18 23:45 124 33 97/48 (64) 04/28/18 23:30 123 34 90/50 (63) 04/28/18 23:15 97.5 123 32 92/47 (62) 04/28/18 23:00 124 34 104/52 (69) 04/28/18 23:00 33 Endotracheal Tube 100 04/28/18 23:00 92/47 04/28/18 22:59 122 34 100 100 04/28/18 22:45 122 32 88/54 (65) 04/28/18 22:30 121 32 89/47 (61) 04/28/18 22:15 123 31 98/52 (67) 04/28/18 22:10 124 31 91/49 (63) 04/28/18 22:00 124 31 88/46 (60) 04/28/18 22:00 32 Endotracheal Tube 100 04/28/18 22:00 94/47 04/28/18 21:45 125 31 94/47 (63) 04/28/18 21:15 120 28 93/46 (62) 04/28/18 21:00 127 30 88/48 (61) 04/28/18 21:00 27 Endotracheal Tube 100 04/28/18 21:00 88/48 04/28/18 20:56 125 30 100 100 04/28/18 20:30 125 29 93/46 (62) 04/28/18 20:15 99 24 83/38 (53) 04/28/18 20:13 69/36 04/28/18 20:09 86 19 69/36 (47) 76 04/28/18 20:03 85 19 48/19 (29) 75 04/28/18 20:00 100 04/28/18 20:00 Mechanical Ventilator 04/28/18 20:00 98.5 82 18 68/36 (47) 73 04/28/18 20:00 27 Endotracheal Tube 100 04/28/18 19:38 107 04/28/18 19:33 106 33 99 Mechanical Ventilator 90 04/28/18 19:21 102 34 96 Mechanical Ventilator 90 04/28/18 19:18 102 34 90 100 04/28/18 19:17 103 31 94/46 (62) 96 04/28/18 19:00 Mechanical Ventilator 100 04/28/18 19:00 101 31 85/47 (60) 95 04/28/18 18:18 98.9 04/28/18 18:00 102 30 90/45 (60) 98 04/28/18 18:00 Mechanical Ventilator 100 04/28/18 17:48 Mechanical Ventilator 100 04/28/18 17:00 103 30 99/46 (63) 90 04/28/18 16:47 104 31 100 04/28/18 16:00 Mechanical Ventilator 04/28/18 16:00 102 30 97/50 (66) 93 04/28/18 16:00 122 04/28/18 16:00 100 04/28/18 15:16 117 33 111/50 (70) 97 04/28/18 15:09 98.9 04/28/18 15:00 106 31 87/38 (54) 97 04/28/18 14:45 109 30 100 04/28/18 14:09 98 32 92/52 (65) 94 04/28/18 14:00 99 32 89/47 (61) 94 04/28/18 13:31 100 27 100 Mechanical Ventilator 100 04/28/18 13:27 97 22 100 Mechanical Ventilator 100 04/28/18 13:00 101 28 101/55 (70) 100 04/28/18 12:53 100 30 100 04/28/18 12:00 Mechanical Ventilator 04/28/18 12:00 105 25 118/66 (83) 100 04/28/18 12:00 100 04/28/18 12:00 108 04/28/18 11:52 106 21 119/59 (79) 100 04/28/18 11:00 103 22 114/61 (78) 100 04/28/18 10:46 104 23 100 Intake and Output 3/16/19 3/17/19 19:00 07:00 Intake Total 2041.538 ml 1650.105 ml Output Total 25 ml 56 ml Balance 2016.538 ml 1594.105 ml IV Total 2041.538 ml 1650.105 ml Output Urine Total 25 ml 56 ml Laboratory Tests 04/28/18 10:50: Arterial Blood pH 7.327L, Arterial Blood Partial Pressure CO2 33.7L, Arterial Blood Partial Pressure O2 139.8H, Arterial Blood HCO3 17.2*L, Arterial Blood Oxygen Saturation 98.3, Arterial Blood Base Excess -7.9L, Aaron Test Positive 04/28/18 20:40: Sodium Level 141, Potassium Level 3.1L, Chloride Level 109H, Carbon Dioxide Level 20L, Anion Gap 12, Blood Urea Nitrogen 57H, Creatinine 4.0H, Estimat Glomerular Filtration Rate 15.6, Glucose Level 244#H, Hemoglobin A1c 5.8, Calcium Level 7.9L, C-Reactive Protein, Quantitative 56.1H 04/29/18 03:06: Urine Eosinophils None seen 04/29/18 05:18: Sodium Level 141, Potassium Level 3.5, Chloride Level 109H, Carbon Dioxide Level 19L, Anion Gap 13, Blood Urea Nitrogen 57H, Creatinine 4.0H, Estimat Glomerular Filtration Rate 15.6, Glucose Level 67#L, Calcium Level 8.5, White Blood Count 15.7H, Red Blood Count 2.83L, Hemoglobin 8.7L, Hematocrit 28.0L, Mean Corpuscular Volume 99, Mean Corpuscular Hemoglobin 30.8, Mean Corpuscular Hemoglobin Concent 31.2L, Red Cell Distribution Width 13.0, Platelet Count 114L , Mean Platelet Volume 7.1, Neutrophils (%) (Auto) , Lymphocytes (%) (Auto) , Monocytes (%) (Auto) , Eosinophils (%) (Auto) , Basophils (%) (Auto) , Differential Total Cells Counted 100, Neutrophils % (Manual) 70, Lymphocytes % ( Manual) 3L, Monocytes % (Manual) 4, Eosinophils % (Manual) 1, Basophils % ( Manual) 0, Band Neutrophils 22H, Platelet Estimate DecreasedL, Platelet Morphology Normal, Hypochromasia 1+, Uric Acid 8.4H, Phosphorus Level 3.7, Magnesium Level 2.0, Total Bilirubin 0.4, Aspartate Amino Transf (AST/SGOT) 29, Alanine Aminotransferase (ALT/SGPT) 15, Alkaline Phosphatase 59, Troponin I 0.118H, Pro-B-Type Natriuretic Peptide 64197Q, Total Protein 6.3L, Albumin 2.4L , Globulin 3.9, Albumin/Globulin Ratio 0.6L, Phenytoin (Dilantin) Level 11.9 Height (Feet): 5 Height (Inches): 10.00 Weight (Pounds): 163 General Appearance: severe distress EENT: normal ENT inspection Neck: supple Cardiovascular: tachycardia Respiratory/Chest: decreased breath sounds Abdomen: normal bowel sounds, non tender, soft Extremities: non-tender Tyler Jarrett MD Apr 29, 2018 10:18
--- NOTE | 2018-04-29 10:27 | NUR ---
NURSE NOTES: Dr Jarrett here to see the patient. Updated him with pt's current condition. Pt is on Versed drip at 1mg/hr and Levophed 8mcg/min. Labored breathing noted. RR 39-40. Will continue to monitor.
--- NOTE | 2018-04-29 11:11 | Infectious Diseases Prog Note ---
Assessment/Plan Assessment/Plan A 1. aspiration pneumonia 2. Sepsis, Septic shock 3.Hypoxemic respiratory failure 4. seizures 5. Acute renal failure 6. alcohol withdrawal P 1. Continue Zosyn & Acyclovir 2. will follow up cultures Subjective ROS Limited/Unobtainable: Yes Cardiovascular: Reports: other - on pressors Allergies: Coded Allergies: No Known Allergies (Unverified , 04/24/18) Objective Vital Signs Last 24 Hour Vital Signs Date Time Temp Pulse Resp B/P (MAP) Pulse Ox O2 Delivery O2 Flow Rate FiO2 04/29/18 10:15 106 39 113/52 (72) 04/29/18 10:00 104 39 112/52 (72) 04/29/18 09:45 104 40 106/53 (70) 04/29/18 09:30 103 39 106/51 (69) 100 04/29/18 09:15 104 39 111/46 (67) 100 04/29/18 09:11 104 41 100 100 04/29/18 09:00 104 40 111/51 (71) 100 04/29/18 08:45 105 39 108/53 (71) 100 04/29/18 08:30 104 38 93/54 (67) 100 04/29/18 08:15 105 38 99/48 (65) 100 04/29/18 08:00 98.1 111 39 101/47 (65) 100 04/29/18 08:00 100 04/29/18 07:50 110/48 04/29/18 07:32 Mechanical Ventilator 100 04/29/18 07:32 Mechanical Ventilator 04/29/18 07:30 114 36 110/48 (68) 100 04/29/18 07:29 117 38 100 100 04/29/18 07:00 38 Endotracheal Tube 100 04/29/18 07:00 85/45 04/29/18 07:00 102 36 90/46 (61) 100 04/29/18 06:45 98 34 63/39 (47) 100 04/29/18 06:44 98 33 71/41 (51) 100 04/29/18 06:30 104 36 80/43 (55) 100 04/29/18 06:15 110 36 105/61 (76) 100 04/29/18 06:00 36 Endotracheal Tube 100 04/29/18 06:00 91/48 04/29/18 06:00 110 37 91/48 (62) 100 04/29/18 05:45 110 36 98/50 (66) 100 04/29/18 05:36 109 36 100 100 04/29/18 05:30 112 29 110/47 (68) 04/29/18 05:15 112 37 95/56 (69) 04/29/18 05:00 111 36 99/50 (66) 04/29/18 05:00 35 Endotracheal Tube 100 04/29/18 05:00 99/58 04/29/18 04:45 113 36 105/52 (69) 100 04/29/18 04:30 113 35 91/59 (70) 100 04/29/18 04:15 112 35 95/48 (64) 100 04/29/18 04:00 Mechanical Ventilator 04/29/18 04:00 33 Endotracheal Tube 100 04/29/18 04:00 101/62 04/29/18 04:00 110 04/29/18 04:00 100 04/29/18 04:00 98.0 113 36 101/62 (75) 100 04/29/18 03:45 117 33 105/61 (76) 100 04/29/18 03:30 118 37 101/54 (70) 100 04/29/18 03:24 116 30 100 100 04/29/18 03:15 118 35 109/50 (69) 100 04/29/18 03:00 35 Endotracheal Tube 100 04/29/18 03:00 104/58 04/29/18 03:00 119 34 104/56 (72) 100 04/29/18 02:45 118 35 95/51 (66) 100 04/29/18 02:37 98/53 04/29/18 02:30 119 35 98/53 (68) 100 04/29/18 02:15 120 36 117/52 (73) 100 04/29/18 02:00 119 35 104/53 (70) 100 04/29/18 02:00 33 Endotracheal Tube 100 04/29/18 02:00 104/53 04/29/18 01:45 120 37 100/51 (67) 99 04/29/18 01:33 122 31 101/51 (68) 100 04/29/18 01:30 121 34 83/72 (76) 99 04/29/18 01:22 120 30 100 Mechanical Ventilator 100 04/29/18 01:15 120 34 96/54 (68) 98 04/29/18 01:12 124 37 95 Mechanical Ventilator 100 04/29/18 01:10 123 37 100 100 04/29/18 01:00 121 34 90/54 (66) 98 04/29/18 01:00 36 Endotracheal Tube 100 04/29/18 01:00 90/54 04/29/18 00:45 120 34 101/59 (73) 98 04/29/18 00:30 123 33 98/50 (66) 96 04/29/18 00:15 121 32 93/55 (68) 95 04/29/18 00:00 Mechanical Ventilator 04/29/18 00:00 100 04/29/18 00:00 98.0 125 31 97/52 (67) 100 04/29/18 00:00 33 Endotracheal Tube 100 04/29/18 00:00 97/52 04/29/18 00:00 116 04/28/18 23:45 124 33 97/48 (64) 04/28/18 23:30 123 34 90/50 (63) 04/28/18 23:15 97.5 123 32 92/47 (62) 04/28/18 23:00 124 34 104/52 (69) 04/28/18 23:00 33 Endotracheal Tube 100 04/28/18 23:00 92/47 04/28/18 22:59 122 34 100 100 04/28/18 22:45 122 32 88/54 (65) 04/28/18 22:30 121 32 89/47 (61) 04/28/18 22:15 123 31 98/52 (67) 04/28/18 22:10 124 31 91/49 (63) 04/28/18 22:00 124 31 88/46 (60) 04/28/18 22:00 32 Endotracheal Tube 100 04/28/18 22:00 94/47 04/28/18 21:45 125 31 94/47 (63) 04/28/18 21:15 120 28 93/46 (62) 04/28/18 21:00 127 30 88/48 (61) 04/28/18 21:00 27 Endotracheal Tube 100 04/28/18 21:00 88/48 04/28/18 20:56 125 30 100 100 04/28/18 20:30 125 29 93/46 (62) 04/28/18 20:15 99 24 83/38 (53) 04/28/18 20:13 69/36 04/28/18 20:09 86 19 69/36 (47) 76 04/28/18 20:03 85 19 48/19 (29) 75 04/28/18 20:00 100 04/28/18 20:00 Mechanical Ventilator 04/28/18 20:00 98.5 82 18 68/36 (47) 73 04/28/18 20:00 27 Endotracheal Tube 100 04/28/18 19:38 107 04/28/18 19:33 106 33 99 Mechanical Ventilator 90 04/28/18 19:21 102 34 96 Mechanical Ventilator 90 04/28/18 19:18 102 34 90 100 04/28/18 19:17 103 31 94/46 (62) 96 04/28/18 19:00 Mechanical Ventilator 100 04/28/18 19:00 101 31 85/47 (60) 95 04/28/18 18:18 98.9 04/28/18 18:00 102 30 90/45 (60) 98 04/28/18 18:00 Mechanical Ventilator 100 04/28/18 17:48 Mechanical Ventilator 100 04/28/18 17:00 103 30 99/46 (63) 90 04/28/18 16:47 104 31 100 04/28/18 16:00 Mechanical Ventilator 04/28/18 16:00 102 30 97/50 (66) 93 04/28/18 16:00 122 04/28/18 16:00 100 04/28/18 15:16 117 33 111/50 (70) 97 04/28/18 15:09 98.9 04/28/18 15:00 106 31 87/38 (54) 97 04/28/18 14:45 109 30 100 04/28/18 14:09 98 32 92/52 (65) 94 04/28/18 14:00 99 32 89/47 (61) 94 04/28/18 13:31 100 27 100 Mechanical Ventilator 100 04/28/18 13:27 97 22 100 Mechanical Ventilator 100 04/28/18 13:00 101 28 101/55 (70) 100 04/28/18 12:53 100 30 100 04/28/18 12:00 Mechanical Ventilator 04/28/18 12:00 105 25 118/66 (83) 100 04/28/18 12:00 100 04/28/18 12:00 108 04/28/18 11:52 106 21 119/59 (79) 100 Height (Feet): 5 Height (Inches): 10.00 Weight (Pounds): 163 HEENT: other - orally intubed Respiratory/Chest: lungs clear, other - on ventilator, tachypeic Cardiovascular: tachycardia, other - R femoral line Abdomen: soft, non tender, other - NG tube Extremities: no edema Neurologic/Psychiatric: unresponsiveness, other - sedated with Versed Microbiology Date/Time Source Procedure Growth Status 04/28/18 06:00 Sputum Gram Stain - Final Resulted 04/28/18 06:00 Sputum Sputum Culture - Preliminary NO GROWTH Resulted 04/28/18 03:08 Urine,Clean Catch Urine Culture - Preliminary NO GROWTH AFTER 24 HOURS Resulted Laboratory Tests Test 04/28/18 20:40 04/29/18 03:06 04/29/18 05:18 Sodium Level 141 MMOL/L (136-145) 141 MMOL/L (136-145) Potassium Level 3.1 MMOL/L (3.5-5.1) L 3.5 MMOL/L (3.5-5.1) Chloride Level 109 MMOL/L (98-107) H 109 MMOL/L (98-107) H Carbon Dioxide Level 20 MMOL/L (21-32) L 19 MMOL/L (21-32) L Anion Gap 12 mmol/L (5-15) 13 mmol/L (5-15) Blood Urea Nitrogen 57 mg/dL (7-18) H 57 mg/dL (7-18) H Creatinine 4.0 MG/DL (0.55-1.30) H 4.0 MG/DL (0.55-1.30) H Estimat Glomerular Filtration Rate 15.6 mL/min (>60) 15.6 mL/min (>60) Glucose Level 244 MG/DL (74-106) #H 67 MG/DL (74-106) #L Hemoglobin A1c 5.8 % (4.3-6.0) Calcium Level 7.9 MG/DL (8.5-10.1) L 8.5 MG/DL (8.5-10.1) C-Reactive Protein, Quantitative 56.1 mg/dL (0.00-0.90) H Urine Eosinophils None seen (NONE SEEN) White Blood Count 15.7 K/UL (4.8-10.8) H Red Blood Count 2.83 M/UL (4.70-6.10) L Hemoglobin 8.7 G/DL (14.2-18.0) L Hematocrit 28.0 % (42.0-52.0) L Mean Corpuscular Volume 99 FL (80-99) Mean Corpuscular Hemoglobin 30.8 PG (27.0-31.0) Mean Corpuscular Hemoglobin Concent 31.2 G/DL (32.0-36.0) L Red Cell Distribution Width 13.0 % (11.6-14.8) Platelet Count 114 K/UL (150-450) L Mean Platelet Volume 7.1 FL (6.5-10.1) Neutrophils (%) (Auto) % (45.0-75.0) Lymphocytes (%) (Auto) % (20.0-45.0) Monocytes (%) (Auto) % (1.0-10.0) Eosinophils (%) (Auto) % (0.0-3.0) Basophils (%) (Auto) % (0.0-2.0) Differential Total Cells Counted 100 Neutrophils % (Manual) 70 % (45-75) Lymphocytes % (Manual) 3 % (20-45) L Monocytes % (Manual) 4 % (1-10) Eosinophils % (Manual) 1 % (0-3) Basophils % (Manual) 0 % (0-2) Band Neutrophils 22 % (0-8) H Platelet Estimate Decreased L Platelet Morphology Normal Hypochromasia 1+ Uric Acid 8.4 MG/DL (2.6-7.2) H Phosphorus Level 3.7 MG/DL (2.5-4.9) Magnesium Level 2.0 MG/DL (1.8-2.4) Total Bilirubin 0.4 MG/DL (0.2-1.0) Aspartate Amino Transf (AST/SGOT) 29 U/L (15-37) Alanine Aminotransferase (ALT/SGPT) 15 U/L (12-78) Alkaline Phosphatase 59 U/L (46-116) Troponin I 0.118 ng/mL (0.000-0.056) Pro-B-Type Natriuretic Peptide 80676 pg/mL (0-125) H Total Protein 6.3 G/DL (6.4-8.2) L Albumin 2.4 G/DL (3.4-5.0) L Globulin 3.9 g/dL Albumin/Globulin Ratio 0.6 (1.0-2.7) L Phenytoin (Dilantin) Level 11.9 ug/mL (10-20) Current Medications Medications (Trade) Dose Ordered Sig/Bj Route PRN Reason Start Time Stop Time Status Last Admin Dose Admin Acetaminophen (Tylenol) 650 mg Q4H PRN ORAL Mild Pain/Temp > 100.5 04/27/18 21:30 05/27/18 21:29 04/27/18 21:44 Acetaminophen (Tylenol) 650 mg Q4H PRN RECTAL Mild Pain (Pain Scale 1-3) 04/27/18 21:30 05/27/18 21:29 04/28/18 14:39 Acyclovir 1000 mg/ Sodium Chloride 275 ml @ 275 mls/hr Q24HRS IV 04/29/18 09:00 05/29/18 08:59 04/29/18 09:30 Albuterol/ Ipratropium (Albuterol/ Ipratropium) 3 ml Q4H PRN HHN Shortness of Breath 04/27/18 21:45 05/02/18 17:44 Albuterol/ Ipratropium (Albuterol/ Ipratropium) 3 ml Q6HRT HHN 04/28/18 01:00 05/02/18 18:59 04/29/18 01:13 Allopurinol (Zyloprim) 200 mg DAILY NG 04/29/18 09:00 05/28/18 08:59 04/29/18 09:21 Chlorhexidine Gluconate (Lidia-Hex 2%) 1 applic DAILY@2000 TOPIC 04/28/18 20:00 05/28/18 19:59 04/28/18 20:22 Clonidine HCl (Catapres Tab) 0.1 mg Q4H PRN ORAL bp over 160 syst 04/27/18 21:30 05/26/18 21:29 Dextrose (Dextrose 50%) 25 ml Q30M PRN IV HYPOGLYCEMIA 04/29/18 07:00 05/29/18 06:59 Dextrose (Dextrose 50%) 25 ml Q30M PRN IV Hypoglycemia 04/29/18 07:30 05/29/18 07:29 Dextrose (Dextrose 50%) 50 ml Q30M PRN IV HYPOGLYCEMIA 04/29/18 07:00 05/29/18 06:59 Dextrose (Dextrose 50%) 50 ml Q30M PRN IV Hypoglycemia 04/29/18 07:30 05/29/18 07:29 Dopamine HCl/ Dextrose 250 ml @ 0 mls/hr Q24H IV 04/28/18 01:00 05/28/18 00:59 04/29/18 02:37 Gadobutrol (Gadavist) 7.5 mmol NOW PRN IV Radiology Procedure 04/28/18 08:00 05/02/18 03:35 Heparin Sodium (Porcine) (Heparin 5000 units/ml) 5,000 units EVERY 12 HOURS SUBQ 04/28/18 09:00 05/27/18 20:59 04/29/18 09:20 Insulin Aspart (NovoLOG) EVERY 4 HOURS SUBQ 04/29/18 09:00 05/29/18 08:59 04/29/18 09:29 Insulin Detemir (Levemir) 6 units BID SUBQ 04/29/18 09:00 05/29/18 08:59 04/29/18 09:30 Levetiracetam 250 mg/Sodium Chloride 112.5 ml @ 450 mls/hr Q12HR IV 04/27/18 22:00 05/27/18 21:59 04/29/18 09:30 Lorazepam (Ativan 2mg/ml 1ml) 1 mg Q2H PRN IV alcohol withdraw, seizure 04/27/18 21:15 05/02/18 11:07 Metoclopramide HCl (Reglan) 10 mg Q6H PRN IVP Nausea & Vomiting 04/27/18 21:30 05/27/18 21:29 Midazolam HCl 100 ml @ 2 mls/hr Q24H IVPB 04/28/18 16:15 05/05/18 16:14 04/28/18 17:48 Miscellaneous Medication (Insulin Rate Change) 1 ea PRN PRN MISC HYPERGLYCEMIA 04/29/18 07:00 05/29/18 06:59 Norepinephrine Bitartrate 8 mg/ Dextrose 508 ml @ 0 mls/hr Q24H IV 04/29/18 07:45 05/29/18 07:44 04/29/18 07:50 Ondansetron HCl (Zofran) 4 mg Q6H PRN IVP Nausea & Vomiting 04/27/18 21:30 05/27/18 21:29 Pantoprazole (Protonix) 40 mg EVERY 12 HOURS IVP 04/28/18 09:00 05/25/18 20:59 04/29/18 09:20 Phenytoin 300 mg/ Sodium Chloride 116 ml @ 120 mls/hr DAILY IVPB 04/28/18 09:00 05/28/18 08:59 04/29/18 09:31 Piperacillin Sod/ Tazobactam Sod 3.375 gm/Sodium Chloride 110 ml @ 27.5 mls/hr Q12H IVPB 04/29/18 00:00 05/06/18 00:00 04/29/18 00:25 Sodium Chloride 1,000 ml @ 100 mls/hr Q10H IV 04/28/18 13:30 05/28/18 13:29 04/29/18 09:21 Thiamine HCl 100 mg/Sodium Chloride 56 ml @ 112 mls/hr Q24H IVPB 04/29/18 15:00 05/29/18 14:59 James Ortiz MD Apr 29, 2018 11:11
--- NOTE | 2018-04-29 12:00 | NUR ---
NURSE NOTES: Pt does not show any gagging but show abnormal upper and lower extremities movement to pain. Bilateral pupils are 3 and sluggish. No changes from this morning. Notified Dr Caicedo regarding neuro status.
--- NOTE | 2018-04-29 13:20 | NUR ---
NURSE NOTES: Dr Rojas here to see the patient. Updated him with pt's current condition including low urine output. Order for bladder scan received, noted, and carried out. Irrigated [place] and flush back well. Bladder scan done at bedside. 6cc residual noted. Will continue to monitor urine output.
--- NOTE | 2018-04-29 13:43 | NUR ---
NURSE NOTES: Dr Chan here to see the patient. Order for routine EEG and to hold Versed for EEG received, noted, and carried out. BP 125/57. Levophed drip rate decreased to 4mcg/min. Will continue to monitor.
[2018-04-29] MEDS: Thiamine HCl 100 MG in NS 55 ML IVPB SCH (15:09)
[2018-04-29] MEDS: Midazolam/D5W 100ml 100 ML IVPB SCH (15:17)
--- NOTE | 2018-04-29 16:01 | NUR ---
NURSE NOTES: Temp 99.9. Orally at 1515. Cooling measures initiated. Temp rechecked at 1601. 99.0 orally.
--- NOTE | 2018-04-29 16:42 | Nephrology Progress Note ---
Assessment/Plan Problem List: (1) Renal failure (ARF), acute on chronic Assessment: oliguric now (2) Diabetic nephropathy (3) Epileptic seizure, generalized (4) Alcohol abuse (5) Anemia (6) Acute respiratory failure Assessment Renal failure- Acute on Chronic Cr rising Anemia HTN by History MJ abuse Etoh abuse DM / Proteinuria : Nephropathy Fever , etiology? Plan trail of albumin followed by William Nepro feeding Adjust Acyclovir dose per Neuro request avoid Nephrotoxics keep BP and BS in check AMIRA kidney noted 2D echo noted Urine studies pending fluid challenge Allopurinol DC Flomax- Has moralez monitor renal parameters discussed with family Per orders Subjective ROS Limited/Unobtainable: Yes Objective Objective Last 24 Hour Vital Signs Date Time Temp Pulse Resp B/P (MAP) Pulse Ox O2 Delivery O2 Flow Rate FiO2 04/29/18 16:00 Mechanical Ventilator 04/29/18 16:00 90 04/29/18 16:00 99.0 04/29/18 15:30 106 39 107/55 (72) 99 04/29/18 15:17 107 40 90 04/29/18 15:15 99.9 106 39 125/56 (79) 99 04/29/18 15:00 106 34 115/51 (72) 99 04/29/18 14:45 103 32 102/50 (67) 98 04/29/18 14:44 102 35 87/52 (64) 100 04/29/18 14:30 103 36 91/49 (63) 98 04/29/18 14:30 103 36 91/49 (63) 98 04/29/18 14:15 104 35 94/54 (67) 98 04/29/18 14:00 106 38 101/47 (65) 99 04/29/18 14:00 94/54 04/29/18 14:00 106 38 101/47 (65) 99 04/29/18 13:41 27 Mechanical Ventilator 04/29/18 13:30 112 33 125/57 (79) 99 04/29/18 13:29 102 26 99 Mechanical Ventilator 90 04/29/18 13:22 103 26 98 Mechanical Ventilator 90 04/29/18 13:14 105 39 90 04/29/18 13:00 106 39 113/54 (73) 98 04/29/18 13:00 114/56 04/29/18 12:45 105 38 116/52 (73) 100 04/29/18 12:30 105 40 105/53 (70) 100 04/29/18 12:15 105 38 109/51 (70) 100 04/29/18 12:00 Mechanical Ventilator 04/29/18 12:00 98.1 105 39 105/50 (68) 99 04/29/18 12:00 104 04/29/18 12:00 109/51 04/29/18 12:00 90 04/29/18 11:30 107 39 143/49 (80) 98 04/29/18 11:29 107 40 90 04/29/18 11:00 109 39 111/52 (71) 100 04/29/18 11:00 111/56 04/29/18 10:30 108 39 110/55 (73) 100 04/29/18 10:00 104 39 112/52 (72) 100 04/29/18 10:00 113/52 04/29/18 10:00 39 Mechanical Ventilator 100 04/29/18 09:45 104 40 106/53 (70) 100 04/29/18 09:30 103 39 106/51 (69) 100 04/29/18 09:15 104 39 111/46 (67) 100 04/29/18 09:11 104 41 100 100 04/29/18 09:00 111/46 04/29/18 09:00 39 Mechanical Ventilator 100 04/29/18 09:00 104 40 111/51 (71) 100 04/29/18 08:45 105 39 108/53 (71) 100 04/29/18 08:30 104 38 93/54 (67) 100 04/29/18 08:15 105 38 99/48 (65) 100 04/29/18 08:10 101/47 04/29/18 08:00 98.1 111 39 101/47 (65) 100 04/29/18 08:00 100 04/29/18 08:00 101/47 04/29/18 08:00 37 Mechanical Ventilator 100 04/29/18 08:00 Mechanical Ventilator 04/29/18 07:50 114 04/29/18 07:50 110/48 04/29/18 07:32 Mechanical Ventilator 100 04/29/18 07:32 Mechanical Ventilator 04/29/18 07:30 114 36 110/48 (68) 100 04/29/18 07:29 117 38 100 100 04/29/18 07:00 38 Endotracheal Tube 100 04/29/18 07:00 85/45 04/29/18 07:00 102 36 90/46 (61) 100 04/29/18 06:45 98 34 63/39 (47) 100 04/29/18 06:44 98 33 71/41 (51) 100 04/29/18 06:30 104 36 80/43 (55) 100 04/29/18 06:15 110 36 105/61 (76) 100 04/29/18 06:00 36 Endotracheal Tube 100 04/29/18 06:00 91/48 04/29/18 06:00 110 37 91/48 (62) 100 04/29/18 05:45 110 36 98/50 (66) 100 04/29/18 05:36 109 36 100 100 04/29/18 05:30 112 29 110/47 (68) 04/29/18 05:15 112 37 95/56 (69) 04/29/18 05:00 111 36 99/50 (66) 04/29/18 05:00 35 Endotracheal Tube 100 04/29/18 05:00 99/58 04/29/18 04:45 113 36 105/52 (69) 100 04/29/18 04:30 113 35 91/59 (70) 100 04/29/18 04:15 112 35 95/48 (64) 100 04/29/18 04:00 Mechanical Ventilator 04/29/18 04:00 33 Endotracheal Tube 100 04/29/18 04:00 101/62 04/29/18 04:00 110 04/29/18 04:00 100 04/29/18 04:00 98.0 113 36 101/62 (75) 100 04/29/18 03:45 117 33 105/61 (76) 100 04/29/18 03:30 118 37 101/54 (70) 100 04/29/18 03:24 116 30 100 100 04/29/18 03:15 118 35 109/50 (69) 100 04/29/18 03:00 35 Endotracheal Tube 100 04/29/18 03:00 104/58 04/29/18 03:00 119 34 104/56 (72) 100 04/29/18 02:45 118 35 95/51 (66) 100 04/29/18 02:37 98/53 04/29/18 02:30 119 35 98/53 (68) 100 04/29/18 02:15 120 36 117/52 (73) 100 04/29/18 02:00 119 35 104/53 (70) 100 04/29/18 02:00 33 Endotracheal Tube 100 04/29/18 02:00 104/53 04/29/18 01:45 120 37 100/51 (67) 99 04/29/18 01:33 122 31 101/51 (68) 100 04/29/18 01:30 121 34 83/72 (76) 99 04/29/18 01:22 120 30 100 Mechanical Ventilator 100 04/29/18 01:15 120 34 96/54 (68) 98 04/29/18 01:12 124 37 95 Mechanical Ventilator 100 04/29/18 01:10 123 37 100 100 04/29/18 01:00 121 34 90/54 (66) 98 04/29/18 01:00 36 Endotracheal Tube 100 04/29/18 01:00 90/54 04/29/18 00:45 120 34 101/59 (73) 98 04/29/18 00:30 123 33 98/50 (66) 96 04/29/18 00:15 121 32 93/55 (68) 95 04/29/18 00:00 Mechanical Ventilator 04/29/18 00:00 100 04/29/18 00:00 98.0 125 31 97/52 (67) 100 04/29/18 00:00 33 Endotracheal Tube 100 04/29/18 00:00 97/52 04/29/18 00:00 116 04/28/18 23:45 124 33 97/48 (64) 04/28/18 23:30 123 34 90/50 (63) 04/28/18 23:15 97.5 123 32 92/47 (62) 04/28/18 23:00 124 34 104/52 (69) 04/28/18 23:00 33 Endotracheal Tube 100 04/28/18 23:00 92/47 04/28/18 22:59 122 34 100 100 04/28/18 22:45 122 32 88/54 (65) 04/28/18 22:30 121 32 89/47 (61) 04/28/18 22:15 123 31 98/52 (67) 04/28/18 22:10 124 31 91/49 (63) 04/28/18 22:00 124 31 88/46 (60) 04/28/18 22:00 32 Endotracheal Tube 100 04/28/18 22:00 94/47 04/28/18 21:45 125 31 94/47 (63) 04/28/18 21:15 120 28 93/46 (62) 04/28/18 21:00 127 30 88/48 (61) 04/28/18 21:00 27 Endotracheal Tube 100 04/28/18 21:00 88/48 04/28/18 20:56 125 30 100 100 04/28/18 20:30 125 29 93/46 (62) 04/28/18 20:15 99 24 83/38 (53) 04/28/18 20:13 69/36 04/28/18 20:09 86 19 69/36 (47) 76 04/28/18 20:03 85 19 48/19 (29) 75 04/28/18 20:00 100 04/28/18 20:00 Mechanical Ventilator 04/28/18 20:00 98.5 82 18 68/36 (47) 73 04/28/18 20:00 27 Endotracheal Tube 100 04/28/18 19:38 107 04/28/18 19:33 106 33 99 Mechanical Ventilator 90 04/28/18 19:21 102 34 96 Mechanical Ventilator 90 04/28/18 19:18 102 34 90 100 04/28/18 19:17 103 31 94/46 (62) 96 04/28/18 19:00 Mechanical Ventilator 100 04/28/18 19:00 101 31 85/47 (60) 95 04/28/18 18:18 98.9 04/28/18 18:00 102 30 90/45 (60) 98 04/28/18 18:00 Mechanical Ventilator 100 04/28/18 17:48 Mechanical Ventilator 100 04/28/18 17:00 103 30 99/46 (63) 90 04/28/18 16:47 104 31 100 Intake and Output 04/28/18 04/29/18 19:00 07:00 Intake Total 2041.538 ml 1650.105 ml Output Total 25 ml 56 ml Balance 2016.538 ml 1594.105 ml IV Total 2041.538 ml 1650.105 ml Output Urine Total 25 ml 56 ml Laboratory Tests 04/28/18 20:40: Sodium Level 141, Potassium Level 3.1L, Chloride Level 109H, Carbon Dioxide Level 20L, Anion Gap 12, Blood Urea Nitrogen 57H, Creatinine 4.0H, Estimat Glomerular Filtration Rate 15.6, Glucose Level 244#H, Hemoglobin A1c 5.8, Calcium Level 7.9L, C-Reactive Protein, Quantitative 56.1H 04/29/18 03:06: Urine Eosinophils None seen 04/29/18 05:18: Sodium Level 141, Potassium Level 3.5, Chloride Level 109H, Carbon Dioxide Level 19L, Anion Gap 13, Blood Urea Nitrogen 57H, Creatinine 4.0H, Estimat Glomerular Filtration Rate 15.6, Glucose Level 67#L, Calcium Level 8.5, White Blood Count 15.7H, Red Blood Count 2.83L, Hemoglobin 8.7L, Hematocrit 28.0L, Mean Corpuscular Volume 99, Mean Corpuscular Hemoglobin 30.8, Mean Corpuscular Hemoglobin Concent 31.2L, Red Cell Distribution Width 13.0, Platelet Count 114L , Mean Platelet Volume 7.1, Neutrophils (%) (Auto) , Lymphocytes (%) (Auto) , Monocytes (%) (Auto) , Eosinophils (%) (Auto) , Basophils (%) (Auto) , Differential Total Cells Counted 100, Neutrophils % (Manual) 70, Lymphocytes % ( Manual) 3L, Monocytes % (Manual) 4, Eosinophils % (Manual) 1, Basophils % ( Manual) 0, Band Neutrophils 22H, Platelet Estimate DecreasedL, Platelet Morphology Normal, Hypochromasia 1+, Uric Acid 8.4H, Phosphorus Level 3.7, Magnesium Level 2.0, Total Bilirubin 0.4, Aspartate Amino Transf (AST/SGOT) 29, Alanine Aminotransferase (ALT/SGPT) 15, Alkaline Phosphatase 59, Troponin I 0.118H, Pro-B-Type Natriuretic Peptide 34993C, Total Protein 6.3L, Albumin 2.4L , Globulin 3.9, Albumin/Globulin Ratio 0.6L, Phenytoin (Dilantin) Level 11.9 04/29/18 15:00: C-Reactive Protein, Quantitative 59.5H Height (Feet): 5 Height (Inches): 10.00 Weight (Pounds): 163 EENT: other - vented Cardiovascular: tachycardia Respiratory/Chest: decreased breath sounds Abdomen: distended Deon Rojas MD Apr 29, 2018 16:42
--- NOTE | 2018-04-29 17:50 | NUR ---
NURSE NOTES: EEG done at bedside. Notified Dr Caicedo regarding EEG result. Order for another EEG for tomorrow received, noted, and carried out. Notified Burt, the certified emergency vehicle technician. Dr Caicedo does not want to restart Versed drolivia. Will keep it off as per order.
[2018-04-29] MEDS: D5 1/2NS w/KCL 10meq 1,000 ML IV SCH (18:09)
[2018-04-29] MEDS ORDERED: Tubing IV Secondary IV ONE (19:30)
--- NOTE | 2018-04-29 19:30 | NUR ---
NURSE NOTES:Received pt obtunded pupils 3mm sluggish, orally intubated on ac mode, NSR on the monitor, Bp labile. On Levophed at 6mcg/min, D51/2NS + 10meq kcl infusing well per R femoral central line. Site with drsg dry and intact. OFF on Verded drip at this time per Dr Valencia Verbal order to SHARLA Mederos. NPO at this time. NGT clamped NPO at thi time. Will confirmed first with KUB prior to start feeding.Meade to gravity with very minimal urine out, Dr Rojas was aware.Will continue to monitor.
--- NOTE | 2018-04-29 19:52 | NUR ---
HAND-OFF: Report given to Uzma MAGDALENO. Endorsed plan of care.
--- NOTE | 2018-04-29 19:55 | NUR ---
RESPIRATORY NOTE: PT. RECEIVED ON AC/VC 16, 600, 90%, +5. PT IS BEING VENTILATED VIA AN ETT SIZE 7.5 @ 23CM LIPLINE. ALARMS ON AND AUDIBLE. VENT CIRCUIT SECURE AND OUT OF THE WAY. PT. HAS AN INCREASED RR OF 37 TO 40 BPM. ALL OTHER VS ARE WNL. WILL CONTINUE TO MONITOR.
--- NOTE | 2018-04-29 20:00 | NUR ---
NURSE NOTES:Urine output was only 30cc even after Lasix 100mg IV given at 1800
[2018-04-29] MEDS: Dyna-Hex 2% Top Sol 2oz TOPIC SCH (20:08)
--- NOTE | 2018-04-29 21:07 | NUR ---
NURSE NOTES:Called DR Cast that pts RR 38-40/min and currently not on Versed drip per Dr Caicedo (neurologist) and per V.O received by Matt MAGDALENO from Dr Caicedo.- Awaiting for Dr Cast to call back.
--- NOTE | 2018-04-29 21:52 | General Progress Note ---
Assessment/Plan Problem List: (1) Anemia ICD Codes: D64.9 - Anemia, unspecified SNOMED: 624291707 (2) Alcohol abuse ICD Codes: F10.10 - Alcohol abuse, uncomplicated SNOMED: 96941941 (3) Epileptic seizure, generalized ICD Codes: G40.309 - Generalized idiopathic epilepsy and epileptic syndromes, not intractable, without status epilepticus SNOMED: 87987656 Status: unchanged Assessment/Plan no change lethrgic cva poor prognosis abx per id pna encephalopathy worsening pna hypoxia intubated spoke w dr ward extensively he wants to transfer pt to [facility] for continious eeg monitering so i wrote transfer order to [facility] if cleared by dr velarde sepsis very poor pronosis sepsis Subjective ROS Limited/Unobtainable: Yes Allergies: Coded Allergies: No Known Allergies (Unverified , 04/24/18) Objective Last 24 Hour Vital Signs Date Time Temp Pulse Resp B/P (MAP) Pulse Ox O2 Delivery O2 Flow Rate FiO2 04/29/18 20:04 99 38 100 Mechanical Ventilator 90 04/29/18 19:55 97 40 90 04/29/18 19:55 97 40 97 Mechanical Ventilator 90 04/29/18 19:00 98 38 111/56 (74) 97 04/29/18 18:30 100 39 123/60 (81) 96 04/29/18 18:00 98.8 100 38 113/60 (77) 100 04/29/18 18:00 121/59 04/29/18 17:30 101 39 98/54 (69) 99 04/29/18 17:00 106/53 04/29/18 17:00 103 40 114/54 (74) 100 04/29/18 16:56 103 39 90 04/29/18 16:30 105 42 117/55 (75) 100 04/29/18 16:00 Mechanical Ventilator 04/29/18 16:00 90 04/29/18 16:00 105 04/29/18 16:00 108/50 04/29/18 16:00 99.0 04/29/18 15:30 106 39 107/55 (72) 99 04/29/18 15:17 107 40 90 04/29/18 15:15 99.9 106 39 125/56 (79) 99 04/29/18 15:00 125/56 04/29/18 15:00 106 34 115/51 (72) 99 04/29/18 14:45 103 32 102/50 (67) 98 04/29/18 14:44 102 35 87/52 (64) 100 04/29/18 14:30 103 36 91/49 (63) 98 04/29/18 14:30 103 36 91/49 (63) 98 04/29/18 14:15 104 35 94/54 (67) 98 04/29/18 14:00 106 38 101/47 (65) 99 04/29/18 14:00 94/54 04/29/18 14:00 106 38 101/47 (65) 99 04/29/18 13:41 27 Mechanical Ventilator 04/29/18 13:30 112 33 125/57 (79) 99 04/29/18 13:29 102 26 99 Mechanical Ventilator 90 04/29/18 13:22 103 26 98 Mechanical Ventilator 90 04/29/18 13:14 105 39 90 04/29/18 13:00 106 39 113/54 (73) 98 04/29/18 13:00 114/56 04/29/18 13:00 39 Mechanical Ventilator 04/29/18 12:45 105 38 116/52 (73) 100 04/29/18 12:30 105 40 105/53 (70) 100 04/29/18 12:15 105 38 109/51 (70) 100 04/29/18 12:00 Mechanical Ventilator 04/29/18 12:00 98.1 105 39 105/50 (68) 99 04/29/18 12:00 104 04/29/18 12:00 109/51 04/29/18 12:00 39 Mechanical Ventilator 04/29/18 12:00 90 04/29/18 11:30 107 39 143/49 (80) 98 04/29/18 11:29 107 40 90 04/29/18 11:00 109 39 111/52 (71) 100 04/29/18 11:00 111/56 04/29/18 11:00 39 Mechanical Ventilator 04/29/18 10:30 108 39 110/55 (73) 100 04/29/18 10:00 104 39 112/52 (72) 100 04/29/18 10:00 113/52 04/29/18 10:00 39 Mechanical Ventilator 100 04/29/18 09:45 104 40 106/53 (70) 100 04/29/18 09:30 103 39 106/51 (69) 100 04/29/18 09:15 104 39 111/46 (67) 100 04/29/18 09:11 104 41 100 100 04/29/18 09:00 111/46 04/29/18 09:00 39 Mechanical Ventilator 100 04/29/18 09:00 104 40 111/51 (71) 100 04/29/18 08:45 105 39 108/53 (71) 100 04/29/18 08:30 104 38 93/54 (67) 100 04/29/18 08:15 105 38 99/48 (65) 100 04/29/18 08:10 101/47 04/29/18 08:00 98.1 111 39 101/47 (65) 100 04/29/18 08:00 100 04/29/18 08:00 101/47 04/29/18 08:00 37 Mechanical Ventilator 100 04/29/18 08:00 Mechanical Ventilator 04/29/18 07:50 114 04/29/18 07:50 110/48 04/29/18 07:32 Mechanical Ventilator 100 04/29/18 07:32 Mechanical Ventilator 04/29/18 07:30 114 36 110/48 (68) 100 04/29/18 07:29 117 38 100 100 04/29/18 07:00 38 Endotracheal Tube 100 04/29/18 07:00 85/45 04/29/18 07:00 102 36 90/46 (61) 100 04/29/18 06:45 98 34 63/39 (47) 100 04/29/18 06:44 98 33 71/41 (51) 100 04/29/18 06:30 104 36 80/43 (55) 100 04/29/18 06:15 110 36 105/61 (76) 100 04/29/18 06:00 36 Endotracheal Tube 100 04/29/18 06:00 91/48 04/29/18 06:00 110 37 91/48 (62) 100 04/29/18 05:45 110 36 98/50 (66) 100 04/29/18 05:36 109 36 100 100 04/29/18 05:30 112 29 110/47 (68) 04/29/18 05:15 112 37 95/56 (69) 04/29/18 05:00 111 36 99/50 (66) 04/29/18 05:00 35 Endotracheal Tube 100 04/29/18 05:00 99/58 04/29/18 04:45 113 36 105/52 (69) 100 04/29/18 04:30 113 35 91/59 (70) 100 04/29/18 04:15 112 35 95/48 (64) 100 04/29/18 04:00 Mechanical Ventilator 04/29/18 04:00 33 Endotracheal Tube 100 04/29/18 04:00 101/62 04/29/18 04:00 110 04/29/18 04:00 100 04/29/18 04:00 98.0 113 36 101/62 (75) 100 04/29/18 03:45 117 33 105/61 (76) 100 04/29/18 03:30 118 37 101/54 (70) 100 04/29/18 03:24 116 30 100 100 04/29/18 03:15 118 35 109/50 (69) 100 04/29/18 03:00 35 Endotracheal Tube 100 04/29/18 03:00 104/58 04/29/18 03:00 119 34 104/56 (72) 100 04/29/18 02:45 118 35 95/51 (66) 100 04/29/18 02:37 98/53 04/29/18 02:30 119 35 98/53 (68) 100 04/29/18 02:15 120 36 117/52 (73) 100 04/29/18 02:00 119 35 104/53 (70) 100 04/29/18 02:00 33 Endotracheal Tube 100 04/29/18 02:00 104/53 04/29/18 01:45 120 37 100/51 (67) 99 04/29/18 01:33 122 31 101/51 (68) 100 04/29/18 01:30 121 34 83/72 (76) 99 04/29/18 01:22 120 30 100 Mechanical Ventilator 100 04/29/18 01:15 120 34 96/54 (68) 98 04/29/18 01:12 124 37 95 Mechanical Ventilator 100 04/29/18 01:10 123 37 100 100 04/29/18 01:00 121 34 90/54 (66) 98 04/29/18 01:00 36 Endotracheal Tube 100 04/29/18 01:00 90/54 04/29/18 00:45 120 34 101/59 (73) 98 04/29/18 00:30 123 33 98/50 (66) 96 04/29/18 00:15 121 32 93/55 (68) 95 04/29/18 00:00 Mechanical Ventilator 04/29/18 00:00 100 04/29/18 00:00 98.0 125 31 97/52 (67) 100 04/29/18 00:00 33 Endotracheal Tube 100 04/29/18 00:00 97/52 04/29/18 00:00 116 04/28/18 23:45 124 33 97/48 (64) 04/28/18 23:30 123 34 90/50 (63) 04/28/18 23:15 97.5 123 32 92/47 (62) 04/28/18 23:00 124 34 104/52 (69) 04/28/18 23:00 33 Endotracheal Tube 100 04/28/18 23:00 92/47 04/28/18 22:59 122 34 100 100 04/28/18 22:45 122 32 88/54 (65) 04/28/18 22:30 121 32 89/47 (61) 04/28/18 22:15 123 31 98/52 (67) 04/28/18 22:10 124 31 91/49 (63) 04/28/18 22:00 124 31 88/46 (60) 04/28/18 22:00 32 Endotracheal Tube 100 04/28/18 22:00 94/47 04/28/18 21:45 125 31 94/47 (63) Intake and Output 04/28/18 04/29/18 19:00 07:00 Intake Total 2041.538 ml 1650.105 ml Output Total 25 ml 56 ml Balance 2016.538 ml 1594.105 ml IV Total 2041.538 ml 1650.105 ml Output Urine Total 25 ml 56 ml Laboratory Tests 04/29/18 03:06: Urine Eosinophils None seen 04/29/18 05:18: White Blood Count 15.7H, Red Blood Count 2.83L, Hemoglobin 8.7L, Hematocrit 28.0L, Mean Corpuscular Volume 99, Mean Corpuscular Hemoglobin 30.8, Mean Corpuscular Hemoglobin Concent 31.2L, Red Cell Distribution Width 13.0, Platelet Count 114L, Mean Platelet Volume 7.1, Neutrophils (%) (Auto) , Lymphocytes (%) (Auto) , Monocytes (%) (Auto) , Eosinophils (%) (Auto) , Basophils (%) (Auto) , Differential Total Cells Counted 100, Neutrophils % ( Manual) 70, Lymphocytes % (Manual) 3L, Monocytes % (Manual) 4, Eosinophils % ( Manual) 1, Basophils % (Manual) 0, Band Neutrophils 22H, Platelet Estimate DecreasedL, Platelet Morphology Normal, Hypochromasia 1+, Sodium Level 141, Potassium Level 3.5, Chloride Level 109H, Carbon Dioxide Level 19L, Anion Gap 13 , Blood Urea Nitrogen 57H, Creatinine 4.0H, Estimat Glomerular Filtration Rate 15.6, Glucose Level 67#L, Uric Acid 8.4H, Calcium Level 8.5, Phosphorus Level 3.7, Magnesium Level 2.0, Total Bilirubin 0.4, Aspartate Amino Transf (AST/SGOT ) 29, Alanine Aminotransferase (ALT/SGPT) 15, Alkaline Phosphatase 59, Troponin I 0.118H, Pro-B-Type Natriuretic Peptide 83804T, Total Protein 6.3L, Albumin 2.4L, Globulin 3.9, Albumin/Globulin Ratio 0.6L, Phenytoin (Dilantin) Level 11.9 04/29/18 05:30: Albumin/Globulin Ratio [Pending], Total Protein (PEP) [Pending], Albumin (PEP) [ Pending], Globulin (PEP) [Pending], [id number]-[id number] [Pending], Alpha-2- Globulins [Pending], Beta Globulins [Pending], Beta Gamma Globulin [Pending], PEP Abnormal Protein Bands [Pending], Protein Electrophoresis Interpret [Pending ], Hepatitis A IgM Antibody [Pending], Hepatitis B Surface Antigen [Pending], Hepatitis B Core IgM Antibody [Pending], Hepatitis C Antibody [Pending] 04/29/18 15:00: C-Reactive Protein, Quantitative 59.5H Height (Feet): 5 Height (Inches): 10.00 Weight (Pounds): 163 General Appearance: lethargic, confused Respiratory/Chest: rhonchi - bilaterally Farhan Joaquin MD Apr 29, 2018 21:52
--- NOTE | 2018-04-29 22:00 | NUR ---
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
--- NOTE | 2018-04-29 23:09 | General Progress Note ---
Assessment/Plan Assessment/Plan Assessment and Recs: # Anemia of chronic disease due to underlying chronic medical issues, multifactorial --> Anemia workup has been reviewed, ferritin 373 --> No evidence of hemolysis is noted, peripheral smear has been reviewed. --> Hgb goal >7. Transfuse prn. --> Given 2 units prbc on 04/25/18, had a reaction, transfusion reaction ordered --> Epogen or iron at this time is not particularly indicated --> Medications have been reviewed --> gi recs appreciated # Anemia due to alcohol withdrawal/myelosuppresion --> Monitor for withdrawal symptoms --> thimaine, folic acid, ivf, ativan prn ordered # Leukocytosis/Elevated white blood cell count, unspecified likely related to underlying stress reaction, smoking, or underlying infection (especially if bandemia is noted) --> have reviewed peripheral smear and bandemia/neutrophilia noted --> continue antibiotics if they have been started by ID team --> monitor for resolution --> WBC trend: 16-->15 # Alcohol abuse --> rec cessation # Epileptic seizure, generalized --> as per neuro # Intubated in ICU # Drug abuse The timing of this note does not necessarily reflect the time of the patient was seen. Greatly appreciate consultation! Subjective Allergies: Coded Allergies: No Known Allergies (Unverified , 04/24/18) Subjective 04/26: awake, comfortable, no acute distress. 04/27: Pt was transferred to ICU, intubated, wbc 16 04/29: seen by bedside, comfortable, wbc 15 Objective Last 24 Hour Vital Signs Date Time Temp Pulse Resp B/P (MAP) Pulse Ox O2 Delivery O2 Flow Rate FiO2 04/29/18 21:26 97 39 90 04/29/18 20:04 99 38 100 Mechanical Ventilator 90 04/29/18 19:55 97 40 90 04/29/18 19:55 97 40 97 Mechanical Ventilator 90 04/29/18 19:00 98 38 111/56 (74) 97 04/29/18 18:30 100 39 123/60 (81) 96 04/29/18 18:00 98.8 100 38 113/60 (77) 100 04/29/18 18:00 121/59 04/29/18 17:30 101 39 98/54 (69) 99 04/29/18 17:00 106/53 04/29/18 17:00 103 40 114/54 (74) 100 04/29/18 16:56 103 39 90 04/29/18 16:30 105 42 117/55 (75) 100 04/29/18 16:00 Mechanical Ventilator 04/29/18 16:00 90 04/29/18 16:00 105 04/29/18 16:00 108/50 04/29/18 16:00 99.0 04/29/18 15:30 106 39 107/55 (72) 99 04/29/18 15:17 107 40 90 04/29/18 15:15 99.9 106 39 125/56 (79) 99 04/29/18 15:00 125/56 04/29/18 15:00 106 34 115/51 (72) 99 04/29/18 14:45 103 32 102/50 (67) 98 04/29/18 14:44 102 35 87/52 (64) 100 04/29/18 14:30 103 36 91/49 (63) 98 04/29/18 14:30 103 36 91/49 (63) 98 04/29/18 14:15 104 35 94/54 (67) 98 04/29/18 14:00 106 38 101/47 (65) 99 04/29/18 14:00 94/54 04/29/18 14:00 106 38 101/47 (65) 99 04/29/18 13:41 27 Mechanical Ventilator 04/29/18 13:30 112 33 125/57 (79) 99 04/29/18 13:29 102 26 99 Mechanical Ventilator 90 04/29/18 13:22 103 26 98 Mechanical Ventilator 90 04/29/18 13:14 105 39 90 04/29/18 13:00 106 39 113/54 (73) 98 04/29/18 13:00 114/56 04/29/18 13:00 39 Mechanical Ventilator 04/29/18 12:45 105 38 116/52 (73) 100 04/29/18 12:30 105 40 105/53 (70) 100 04/29/18 12:15 105 38 109/51 (70) 100 04/29/18 12:00 Mechanical Ventilator 04/29/18 12:00 98.1 105 39 105/50 (68) 99 04/29/18 12:00 104 04/29/18 12:00 109/51 04/29/18 12:00 39 Mechanical Ventilator 04/29/18 12:00 90 04/29/18 11:30 107 39 143/49 (80) 98 04/29/18 11:29 107 40 90 04/29/18 11:00 109 39 111/52 (71) 100 04/29/18 11:00 111/56 04/29/18 11:00 39 Mechanical Ventilator 04/29/18 10:30 108 39 110/55 (73) 100 04/29/18 10:00 104 39 112/52 (72) 100 04/29/18 10:00 113/52 04/29/18 10:00 39 Mechanical Ventilator 100 04/29/18 09:45 104 40 106/53 (70) 100 04/29/18 09:30 103 39 106/51 (69) 100 04/29/18 09:15 104 39 111/46 (67) 100 04/29/18 09:11 104 41 100 100 04/29/18 09:00 111/46 04/29/18 09:00 39 Mechanical Ventilator 100 04/29/18 09:00 104 40 111/51 (71) 100 04/29/18 08:45 105 39 108/53 (71) 100 04/29/18 08:30 104 38 93/54 (67) 100 04/29/18 08:15 105 38 99/48 (65) 100 04/29/18 08:10 101/47 04/29/18 08:00 98.1 111 39 101/47 (65) 100 04/29/18 08:00 100 04/29/18 08:00 101/47 04/29/18 08:00 37 Mechanical Ventilator 100 04/29/18 08:00 Mechanical Ventilator 04/29/18 07:50 114 04/29/18 07:50 110/48 04/29/18 07:32 Mechanical Ventilator 100 04/29/18 07:32 Mechanical Ventilator 04/29/18 07:30 114 36 110/48 (68) 100 04/29/18 07:29 117 38 100 100 04/29/18 07:00 38 Endotracheal Tube 100 04/29/18 07:00 85/45 04/29/18 07:00 102 36 90/46 (61) 100 04/29/18 06:45 98 34 63/39 (47) 100 04/29/18 06:44 98 33 71/41 (51) 100 04/29/18 06:30 104 36 80/43 (55) 100 04/29/18 06:15 110 36 105/61 (76) 100 04/29/18 06:00 36 Endotracheal Tube 100 04/29/18 06:00 91/48 04/29/18 06:00 110 37 91/48 (62) 100 04/29/18 05:45 110 36 98/50 (66) 100 04/29/18 05:36 109 36 100 100 04/29/18 05:30 112 29 110/47 (68) 04/29/18 05:15 112 37 95/56 (69) 04/29/18 05:00 111 36 99/50 (66) 04/29/18 05:00 35 Endotracheal Tube 100 04/29/18 05:00 99/58 04/29/18 04:45 113 36 105/52 (69) 100 04/29/18 04:30 113 35 91/59 (70) 100 04/29/18 04:15 112 35 95/48 (64) 100 04/29/18 04:00 Mechanical Ventilator 04/29/18 04:00 33 Endotracheal Tube 100 04/29/18 04:00 101/62 04/29/18 04:00 110 04/29/18 04:00 100 04/29/18 04:00 98.0 113 36 101/62 (75) 100 04/29/18 03:45 117 33 105/61 (76) 100 04/29/18 03:30 118 37 101/54 (70) 100 04/29/18 03:24 116 30 100 100 04/29/18 03:15 118 35 109/50 (69) 100 04/29/18 03:00 35 Endotracheal Tube 100 04/29/18 03:00 104/58 04/29/18 03:00 119 34 104/56 (72) 100 04/29/18 02:45 118 35 95/51 (66) 100 04/29/18 02:37 98/53 04/29/18 02:30 119 35 98/53 (68) 100 04/29/18 02:15 120 36 117/52 (73) 100 04/29/18 02:00 119 35 104/53 (70) 100 04/29/18 02:00 33 Endotracheal Tube 100 04/29/18 02:00 104/53 04/29/18 01:45 120 37 100/51 (67) 99 04/29/18 01:33 122 31 101/51 (68) 100 04/29/18 01:30 121 34 83/72 (76) 99 04/29/18 01:22 120 30 100 Mechanical Ventilator 100 04/29/18 01:15 120 34 96/54 (68) 98 04/29/18 01:12 124 37 95 Mechanical Ventilator 100 04/29/18 01:10 123 37 100 100 04/29/18 01:00 121 34 90/54 (66) 98 04/29/18 01:00 36 Endotracheal Tube 100 04/29/18 01:00 90/54 04/29/18 00:45 120 34 101/59 (73) 98 04/29/18 00:30 123 33 98/50 (66) 96 04/29/18 00:15 121 32 93/55 (68) 95 04/29/18 00:00 Mechanical Ventilator 04/29/18 00:00 100 04/29/18 00:00 98.0 125 31 97/52 (67) 100 04/29/18 00:00 33 Endotracheal Tube 100 04/29/18 00:00 97/52 04/29/18 00:00 116 04/28/18 23:45 124 33 97/48 (64) 04/28/18 23:30 123 34 90/50 (63) 04/28/18 23:15 97.5 123 32 92/47 (62) Intake and Output 04/28/18 04/29/18 19:00 07:00 Intake Total 2041.538 ml 1650.105 ml Output Total 25 ml 56 ml Balance 2016.538 ml 1594.105 ml IV Total 2041.538 ml 1650.105 ml Output Urine Total 25 ml 56 ml Laboratory Tests 04/29/18 03:06: Urine Eosinophils None seen 04/29/18 05:18: White Blood Count 15.7H, Red Blood Count 2.83L, Hemoglobin 8.7L, Hematocrit 28.0L, Mean Corpuscular Volume 99, Mean Corpuscular Hemoglobin 30.8, Mean Corpuscular Hemoglobin Concent 31.2L, Red Cell Distribution Width 13.0, Platelet Count 114L, Mean Platelet Volume 7.1, Neutrophils (%) (Auto) , Lymphocytes (%) (Auto) , Monocytes (%) (Auto) , Eosinophils (%) (Auto) , Basophils (%) (Auto) , Differential Total Cells Counted 100, Neutrophils % ( Manual) 70, Lymphocytes % (Manual) 3L, Monocytes % (Manual) 4, Eosinophils % ( Manual) 1, Basophils % (Manual) 0, Band Neutrophils 22H, Platelet Estimate DecreasedL, Platelet Morphology Normal, Hypochromasia 1+, Sodium Level 141, Potassium Level 3.5, Chloride Level 109H, Carbon Dioxide Level 19L, Anion Gap 13 , Blood Urea Nitrogen 57H, Creatinine 4.0H, Estimat Glomerular Filtration Rate 15.6, Glucose Level 67#L, Uric Acid 8.4H, Calcium Level 8.5, Phosphorus Level 3.7, Magnesium Level 2.0, Total Bilirubin 0.4, Aspartate Amino Transf (AST/SGOT ) 29, Alanine Aminotransferase (ALT/SGPT) 15, Alkaline Phosphatase 59, Troponin I 0.118H, Pro-B-Type Natriuretic Peptide 83210U, Total Protein 6.3L, Albumin 2.4L, Globulin 3.9, Albumin/Globulin Ratio 0.6L, Phenytoin (Dilantin) Level 11.9 04/29/18 05:30: Albumin/Globulin Ratio [Pending], Total Protein (PEP) [Pending], Albumin (PEP) [ Pending], Globulin (PEP) [Pending], [id number]-7-[id number] [Pending], Alpha-2- Globulins [Pending], Beta Globulins [Pending], Beta Gamma Globulin [Pending], PEP Abnormal Protein Bands [Pending], Protein Electrophoresis Interpret [Pending ], Hepatitis A IgM Antibody [Pending], Hepatitis B Surface Antigen [Pending], Hepatitis B Core IgM Antibody [Pending], Hepatitis C Antibody [Pending] 04/29/18 15:00: C-Reactive Protein, Quantitative 59.5H Height (Feet): 5 Height (Inches): 10.00 Weight (Pounds): 163 Objective PE: General Appearance: well appearing, no apparent distress, alert Head: normocephalic EENT: PERRL/EOMI, normal ENT inspection Neck: supple Respiratory: normal breath sounds, no respiratory distress, intubated++ Cardiovascular: normal rate Gastrointestinal: normal inspection, non tender, soft, normal bowel sounds, non -distended Rectal: deferred Genitourinary: deferred Musculoskeletal: normal inspection, back normal Mirza Greenfield MD Apr 29, 2018 23:09
--- NOTE | 2018-04-29 23:30 | NUR ---
NURSE NOTES:Family called - updated with pts condition- verbalized understanding.
[2018-04-30] VITALS (44 sets, daily range): BP systolic 87–131; BP diastolic 45–70
--- NOTE | 2018-04-30 | Progress Note ---
DATE: 04/29/2018 ADDENDUM PLAN: The patient is already off versed and Dr. Cast should be consulted about the Versed. James Caicedo MD DR: Jessica JOB#: [id number] CC: BREE
--- NOTE | 2018-04-30 | NUR ---
NURSE NOTES:Kept NPO at midnight for abdominal ultrasound in am.
--- NOTE | 2018-04-30 00:15 | Consultation ---
DATE OF CONSULTATION: 04/29/2018 NOTE: POOR AUDIO ENDOCRINOLOGY CONSULTATION REFERRING PHYSICIAN: Abhi Griffin M.D. REASON FOR CONSULTATION: Diabetes out of control, gap acidosis. HISTORY OF PRESENT ILLNESS: It is important to note that history is obtained from review of the chart and medical records, discussion with the RN, Dr. Alyssa Cast, covering physician for Dr. Griffin as well as the patient's daughter, who is present at the bedside. This is a 58-year-old male with history of diabetes, who according to the daughter and staff, has not been taking his medications, including insulin. The patient initially presented to the hospital on April 24 with a new onset seizure. No prior history of seizure disorder, although has a history of alcohol abuse. The patient has an alcohol drink every day. The patient had a questionable GI bleed. Yesterday, chemistry showed sodium 142, potassium 3.9, chloride 108, bicarb 17, BUN 52, creatinine 2.5 with a gap of 18. I was notified and initiated the patient on insulin drip and this morning the gap is closed. PAST MEDICAL HISTORY: Alcoholism; diabetes, insulin dependent, non compliance with medications. PAST SURGICAL HISTORY: Unknown. OUTPATIENT MEDICATIONS: None listed. SOCIAL HISTORY: He drinks alcohol daily. No history of smoking or drug use. REVIEW OF SYSTEMS: Unobtainable. The patient is intubated. PHYSICAL EXAMINATION: GENERAL: The patient is orally intubated. VITAL SIGNS: Blood pressure is 112/52, pulse 109, temperature of 98. HEENT: Pupils are equal and reactive to light. Orally intubated. NECK: Positive for JVD. HEART: Tachy. LUNGS: Crackles at the bases. ABDOMEN: Positive bowel sounds. Soft, distended. EXTREMITIES: Positive for edema. LABORATORY VALUES: Sodium 141, potassium 3.5, chloride 101, bicarb 19, BUN 54, creatinine 4.0, . Hemoglobin A1c of 5.8. CRP of 56, troponin is 0.01. BNP of 11,151. DIAGNOSES: 1. Mild gap acidosis, resolved. 2. Diabetes. 3. Respiratory failure. 4. Alcohol withdrawal. 5. Seizure disorder. DISCUSSION: 1. Continue excellent ICU care. 2. I will stop the insulin drip. Start the patient on blood glucose monitoring every four hours, NovoLog sliding scale. Also, Levemir 6 units q.12 h. The patient will be followed closely in the hospital. Thank you, Dr. Griffin, for the courtesy of this consultation. Shoaib Ocampo M.D. DR: Josh JOB#: [id number] CC: BREE
--- NOTE | 2018-04-30 01:00 | NUR ---
NURSE NOTES:Neuro unchanged- RR 38-40s. 02 sat 99%- Suctioned tn whitish secretions moderate in amt.
[2018-04-30] MEDS: Albuterol/Ipratropium 3ml neb HHN SCH ×4 (01:15→19:30)
[2018-04-30] MEDS: NovoLOG Insulin Flexpen SUBQ SCH ×6 (01:22→20:14)
--- NOTE | 2018-04-30 01:30 | Progress Note ---
DATE: 04/29/2018 SUBJECTIVE: The patient is still comatose on 1 mg of Versed every hour. Last EEG revealed no seizures, but still has PLEDs on the right side. The patient will have a new EEG today. OBJECTIVE: VITAL SIGNS: Blood pressure is 113/49, temperature is 98.1 degrees this morning at 8 a.m., pulse rate 108, respiratory rate is 36 overriding the vent set at 16. MENTAL STATUS: The patient is comatose. Does react to deep pain by lifting his right arm more than his left. There is some movement of lower extremities, right side predominant. Tone is flaccid. Bulk is unchanged. Reflexes are 0 in the upper and lower extremities with mute toes and testing for Babinski response. CRANIAL NERVES: CRANIAL NERVE II: No response to threat. CRANIAL NERVES III, IV, AND : Eyes in the midline. Doll's eyes are negative. Pupils are about 3.5 mm to 4 mm and probably unreactive. CRANIAL NERVE V: Corneals intact. Stimulation of his left naris caused what appeared to be bilateral pretty symmetrical grimace. CRANIAL NERVE VII: See above. CRANIAL NERVES VIII THROUGH XII: Gag could not be elicited. Otherwise, the others could not be tested. SENSORY: He has deep pain in all four extremities. LABORATORY AND DIAGNOSTIC DATA: The CT scan of the brain yesterday revealed no acute intracranial findings. There is evidence of mild periventricular white matter disease, likely related to chronic small vessel disease changes. There is mild generalized cerebral parenchymal volume loss. No changes. IMPRESSION: The patient is comatose, who has metabolic encephalopathy and severe cortical and subcortical decrease to the cranial nerves III, IV, and . There is some corneal response, but it is much less than before. I think the patient has status epilepticus now, I still want to transfer him over to [facility], we still have not heard from [facility] about the transfer. At this point, I am going to stop his Versed and another EEG is going to be obtained. PLAN: 1. Stop the Versed. 2. EEG today. James Caicedo MD DR: Jessica JOB#: [id number] CC:
[2018-04-30] MEDS: D5 1/2NS w/KCL 10meq 1,000 ML IV SCH ×3 (02:59→22:36)
--- NOTE | 2018-04-30 03:00 | NUR ---
NURSE NOTES:Bladder Scan -10ml residual noted.
--- NOTE | 2018-04-30 05:00 | NUR ---
NURSE NOTES:Levophed drip at 3mcg/min at this time . Bp still labile.
--- NOTE | 2018-04-30 05:24 | NUR ---
RESPIRATORY NOTE: PT. REMAINED STABLE ON CMV WITH CURRENT SETTINGS. VENT CIRCUIT SECURE AND OUT OF THE WAY. NO S/S OF RESPIRATORY DISTRESS NOTED AT THIS TIME.
[2018-04-30 05:39] LABS: HEMATOCRIT 19.7 % (42.0-52.0); MEAN CORPUSCULAR VOLUME 94 FL (80-99); PLATELET COUNT 114 K/UL (150-450); RED CELL DISTRIBUTION WIDTH 12.4 % (11.6-14.8); WHITE BLOOD COUNT 18.4 K/UL (4.8-10.8)
[2018-04-30 05:55] LABS: HEMOGLOBIN 6.6 G/DL (14.2-18.0)
[2018-04-30 06:12] LABS: ALANINE AMINOTRANSFERASE 15 U/L (12-78); ALBUMIN 2.1 G/DL (3.4-5.0); ALBUMIN/GLOBULIN RATIO 0.6 (1.0-2.7); ALKALINE PHOSPHATASE 51 U/L (46-116); ANION GAP 14 mmol/L (5-15); ASPARTATE AMINO TRANSFERASE 27 U/L (15-37); BILIRUBIN,TOTAL 0.5 MG/DL (0.2-1.0); BLOOD UREA NITROGEN 65 mg/dL (7-18); CALCIUM 8.1 MG/DL (8.5-10.1); CARBON DIOXIDE 17 MMOL/L (21-32); CHLORIDE 108 MMOL/L (98-107); CREATININE 4.2 MG/DL (0.55-1.30); POTASSIUM 3.2 MMOL/L (3.5-5.1); SODIUM 139 MMOL/L (136-145)
--- NOTE | 2018-04-30 06:15 | NUR ---
NURSE NOTES:Hgb-6.6- Dr Greenfield was notified by SHARLA Bonilla with order to transfuse 1 u PRBC
--- NOTE | 2018-04-30 06:26 | General Progress Note ---
Assessment/Plan Problem List: (1) Acute respiratory failure ICD Codes: J96.00 - Acute respiratory failure, unspecified whether with hypoxia or hypercapnia SNOMED: 80492565 (2) Diabetes ICD Codes: E11.9 - Type 2 diabetes mellitus without complications SNOMED: 86997159 (3) Diabetic nephropathy ICD Codes: E11.21 - Type 2 diabetes mellitus with diabetic nephropathy SNOMED: 707938746 (4) Renal failure (ARF), acute on chronic ICD Codes: N17.9 - Acute kidney failure, unspecified; N18.9 - Chronic kidney disease, unspecified SNOMED: 283033236 (5) Alcohol abuse ICD Codes: F10.10 - Alcohol abuse, uncomplicated SNOMED: 38863355 (6) Anemia ICD Codes: D64.9 - Anemia, unspecified SNOMED: 830883620 (7) Alcohol withdrawal ICD Codes: F10.239 - Alcohol dependence with withdrawal, unspecified SNOMED: 925500581 (8) Epileptic seizure, generalized ICD Codes: G40.309 - Generalized idiopathic epilepsy and epileptic syndromes, not intractable, without status epilepticus SNOMED: 88522106 Assessment/Plan continue Novolog sliding scale every 4 hours continue Levemir 6 units bid Subjective ROS Limited/Unobtainable: Yes Allergies: Coded Allergies: No Known Allergies (Unverified , 04/24/18) Subjective events noted intubated in icu glucose values are stable Item Value Date Time Bedside Blood Glucose 167 mg/dl H 04/30/18 0450 Bedside Blood Glucose 241 mg/dl H 04/30/18 0122 Bedside Blood Glucose 201 mg/dl H 04/29/18 2126 Bedside Blood Glucose 150 mg/dl H 04/29/18 1810 Bedside Blood Glucose 132 mg/dl H 04/29/18 1329 Bedside Blood Glucose 113 mg/dl 04/29/18 0930 Objective Last 24 Hour Vital Signs Date Time Temp Pulse Resp B/P (MAP) Pulse Ox O2 Delivery O2 Flow Rate FiO2 04/30/18 05:24 97 41 90 04/30/18 03:20 97 39 90 04/30/18 01:25 100 39 100 Mechanical Ventilator 90 04/30/18 01:13 99 40 95 Mechanical Ventilator 90 04/30/18 01:13 99 40 90 04/30/18 01:00 98 39 120/54 (76) 96 04/30/18 00:30 98 39 126/54 (78) 96 04/30/18 00:00 98 04/30/18 00:00 98.2 98 39 112/55 (74) 96 04/30/18 00:00 Mechanical Ventilator 04/30/18 00:00 90 04/30/18 00:00 105 04/29/18 23:30 98 39 122/59 (80) 96 04/29/18 23:28 97 40 90 04/29/18 23:00 97 39 126/68 (87) 95 04/29/18 22:30 95 38 97/60 (72) 94 04/29/18 22:00 96 38 99/63 (75) 98 04/29/18 21:26 97 39 90 04/29/18 21:00 100 38 104/64 (77) 98 04/29/18 20:30 100 39 117/61 (79) 98 04/29/18 20:04 99 38 100 Mechanical Ventilator 90 04/29/18 20:00 Mechanical Ventilator 04/29/18 20:00 90 04/29/18 20:00 100 04/29/18 20:00 98.0 100 39 115/60 (78) 98 04/29/18 19:55 97 40 90 04/29/18 19:55 97 40 97 Mechanical Ventilator 90 04/29/18 19:00 98 38 111/56 (74) 97 04/29/18 18:30 100 39 123/60 (81) 96 04/29/18 18:00 98.8 100 38 113/60 (77) 100 04/29/18 18:00 121/59 04/29/18 17:30 101 39 98/54 (69) 99 04/29/18 17:00 106/53 04/29/18 17:00 103 40 114/54 (74) 100 04/29/18 16:56 103 39 90 04/29/18 16:30 105 42 117/55 (75) 100 04/29/18 16:00 Mechanical Ventilator 04/29/18 16:00 90 04/29/18 16:00 105 04/29/18 16:00 108/50 04/29/18 16:00 99.0 04/29/18 15:30 106 39 107/55 (72) 99 04/29/18 15:17 107 40 90 04/29/18 15:15 99.9 106 39 125/56 (79) 99 04/29/18 15:00 125/56 04/29/18 15:00 106 34 115/51 (72) 99 04/29/18 14:45 103 32 102/50 (67) 98 04/29/18 14:44 102 35 87/52 (64) 100 04/29/18 14:30 103 36 91/49 (63) 98 04/29/18 14:30 103 36 91/49 (63) 98 04/29/18 14:15 104 35 94/54 (67) 98 04/29/18 14:00 106 38 101/47 (65) 99 04/29/18 14:00 94/54 04/29/18 14:00 106 38 101/47 (65) 99 04/29/18 13:41 27 Mechanical Ventilator 04/29/18 13:30 112 33 125/57 (79) 99 04/29/18 13:29 102 26 99 Mechanical Ventilator 90 04/29/18 13:22 103 26 98 Mechanical Ventilator 90 04/29/18 13:14 105 39 90 04/29/18 13:00 106 39 113/54 (73) 98 04/29/18 13:00 114/56 04/29/18 13:00 39 Mechanical Ventilator 04/29/18 12:45 105 38 116/52 (73) 100 04/29/18 12:30 105 40 105/53 (70) 100 04/29/18 12:15 105 38 109/51 (70) 100 04/29/18 12:00 Mechanical Ventilator 04/29/18 12:00 98.1 105 39 105/50 (68) 99 04/29/18 12:00 104 04/29/18 12:00 109/51 04/29/18 12:00 39 Mechanical Ventilator 04/29/18 12:00 90 04/29/18 11:30 107 39 143/49 (80) 98 04/29/18 11:29 107 40 90 04/29/18 11:00 109 39 111/52 (71) 100 04/29/18 11:00 111/56 04/29/18 11:00 39 Mechanical Ventilator 04/29/18 10:30 108 39 110/55 (73) 100 04/29/18 10:00 104 39 112/52 (72) 100 04/29/18 10:00 113/52 04/29/18 10:00 39 Mechanical Ventilator 100 04/29/18 09:45 104 40 106/53 (70) 100 04/29/18 09:30 103 39 106/51 (69) 100 04/29/18 09:15 104 39 111/46 (67) 100 04/29/18 09:11 104 41 100 100 04/29/18 09:00 111/46 04/29/18 09:00 39 Mechanical Ventilator 100 04/29/18 09:00 104 40 111/51 (71) 100 04/29/18 08:45 105 39 108/53 (71) 100 04/29/18 08:30 104 38 93/54 (67) 100 04/29/18 08:15 105 38 99/48 (65) 100 04/29/18 08:10 101/47 04/29/18 08:00 98.1 111 39 101/47 (65) 100 04/29/18 08:00 100 04/29/18 08:00 101/47 04/29/18 08:00 37 Mechanical Ventilator 100 04/29/18 08:00 Mechanical Ventilator 04/29/18 07:50 114 04/29/18 07:50 110/48 04/29/18 07:32 Mechanical Ventilator 100 04/29/18 07:32 Mechanical Ventilator 04/29/18 07:30 114 36 110/48 (68) 100 04/29/18 07:29 117 38 100 100 04/29/18 07:00 38 Endotracheal Tube 100 04/29/18 07:00 85/45 04/29/18 07:00 102 36 90/46 (61) 100 04/29/18 06:45 98 34 63/39 (47) 100 04/29/18 06:44 98 33 71/41 (51) 100 04/29/18 06:30 104 36 80/43 (55) 100 Intake and Output 04/29/18 04/30/18 18:59 06:59 Intake Total 2781.514 ml Output Total 95 ml 220 ml Balance 2686.514 ml -220 ml IV Total 2781.514 ml Output Urine Total 95 ml 220 ml Laboratory Tests 04/29/18 15:00: C-Reactive Protein, Quantitative 59.5H 04/30/18 04:30: White Blood Count 18.4H, Red Blood Count 2.10L, Hemoglobin 6.6*L, Hematocrit 19.7L, Mean Corpuscular Volume 94, Mean Corpuscular Hemoglobin 31.6H, Mean Corpuscular Hemoglobin Concent 33.8, Red Cell Distribution Width 12.4, Platelet Count 114L, Mean Platelet Volume 7.0, Neutrophils (%) (Auto) , Lymphocytes (%) ( Auto) , Monocytes (%) (Auto) , Eosinophils (%) (Auto) , Basophils (%) (Auto) , Neutrophils % (Manual) [Pending], Lymphocytes % (Manual) [Pending], Platelet Estimate [Pending], Platelet Morphology [Pending], Sodium Level 139, Potassium Level 3.2L, Chloride Level 108H, Carbon Dioxide Level 17L, Anion Gap 14, Blood Urea Nitrogen 65H, Creatinine 4.2H, Estimat Glomerular Filtration Rate 14.7, Glucose Level 160H, Uric Acid [Pending], Calcium Level 8.1L, Phosphorus Level [ Pending], Magnesium Level [Pending], Total Bilirubin 0.5, Aspartate Amino Transf (AST/SGOT) 27, Alanine Aminotransferase (ALT/SGPT) 15, Alkaline Phosphatase 51, Ammonia 18, Troponin I [Pending], Pro-B-Type Natriuretic Peptide [Pending], Total Protein 5.5L, Albumin 2.1L, Globulin 3.4, Albumin/ Globulin Ratio 0.6L, Lipase 22L, Phenytoin (Dilantin) Level [Pending] Height (Feet): 5 Height (Inches): 10.00 Weight (Pounds): 163 General Appearance: severe distress Neck: normal alignment Cardiovascular: normal rate Respiratory/Chest: decreased breath sounds Abdomen: normal bowel sounds Pelvis: normal external exam Edema: 1+ Arm (L), 1+ Arm (R), 1+ Leg (L), 1+ Leg (R), 1+ Pedal (L), 1+ Pedal ( R), 1+ Generalized Objective Current Medications Medications (Trade) Dose Ordered Sig/Bj Route PRN Reason Start Time Stop Time Status Last Admin Dose Admin Acetaminophen (Tylenol) 650 mg Q4H PRN ORAL Mild Pain/Temp > 100.5 04/27/18 21:30 05/27/18 21:29 04/27/18 21:44 Acetaminophen (Tylenol) 650 mg Q4H PRN RECTAL Mild Pain (Pain Scale 1-3) 04/27/18 21:30 05/27/18 21:29 04/28/18 14:39 Acyclovir 1000 mg/ Sodium Chloride 275 ml @ 275 mls/hr Q24HRS IV 04/29/18 09:00 05/29/18 08:59 04/29/18 09:30 Albuterol/ Ipratropium (Albuterol/ Ipratropium) 3 ml Q4H PRN HHN Shortness of Breath 04/27/18 21:45 05/02/18 17:44 Albuterol/ Ipratropium (Albuterol/ Ipratropium) 3 ml Q6HRT HHN 04/28/18 01:00 05/02/18 18:59 04/30/18 01:15 Allopurinol (Zyloprim) 200 mg DAILY NG 04/29/18 09:00 05/28/18 08:59 04/29/18 09:21 Chlorhexidine Gluconate (Lidia-Hex 2%) 1 applic DAILY@2000 TOPIC 04/28/18 20:00 05/28/18 19:59 04/29/18 20:08 Clonidine HCl (Catapres Tab) 0.1 mg Q4H PRN ORAL bp over 160 syst 04/27/18 21:30 05/26/18 21:29 Dextrose (Dextrose 50%) 25 ml Q30M PRN IV Hypoglycemia 04/29/18 07:30 05/29/18 07:29 Dextrose (Dextrose 50%) 50 ml Q30M PRN IV Hypoglycemia 04/29/18 07:30 05/29/18 07:29 Dextrose/ Electrolytes 1,000 ml @ 100 mls/hr Q10H IV 04/29/18 17:00 05/29/18 16:59 04/30/18 02:59 Gadobutrol (Gadavist) 7.5 mmol NOW PRN IV Radiology Procedure 04/28/18 08:00 05/02/18 03:35 Heparin Sodium (Porcine) (Heparin 5000 units/ml) 5,000 units EVERY 12 HOURS SUBQ 04/28/18 09:00 05/27/18 20:59 04/29/18 09:20 Insulin Aspart (NovoLOG) EVERY 4 HOURS SUBQ 04/29/18 09:00 05/29/18 08:59 04/30/18 04:50 Insulin Detemir (Levemir) 6 units BID SUBQ 04/29/18 09:00 05/29/18 08:59 04/29/18 18:10 Levetiracetam 250 mg/Sodium Chloride 112.5 ml @ 450 mls/hr Q12HR IV 04/27/18 22:00 05/27/18 21:59 04/29/18 21:00 Lorazepam (Ativan 2mg/ml 1ml) 1 mg Q2H PRN IV alcohol withdraw, seizure 04/27/18 21:15 05/02/18 11:07 Metoclopramide HCl (Reglan) 10 mg Q6H PRN IVP Nausea & Vomiting 04/27/18 21:30 05/27/18 21:29 Midazolam HCl 100 ml @ 2 mls/hr Q24H IVPB 04/28/18 16:15 05/05/18 16:14 04/28/18 17:48 Norepinephrine Bitartrate 8 mg/ Dextrose 508 ml @ 0 mls/hr Q24H IV 04/29/18 07:45 05/29/18 07:44 04/29/18 07:50 Ondansetron HCl (Zofran) 4 mg Q6H PRN IVP Nausea & Vomiting 04/27/18 21:30 05/27/18 21:29 Pantoprazole (Protonix) 40 mg EVERY 12 HOURS IVP 04/28/18 09:00 05/25/18 20:59 04/29/18 21:24 Phenytoin 300 mg/ Sodium Chloride 116 ml @ 120 mls/hr DAILY IVPB 04/28/18 09:00 05/28/18 08:59 04/29/18 09:31 Piperacillin Sod/ Tazobactam Sod 3.375 gm/Sodium Chloride 110 ml @ 27.5 mls/hr Q12H IVPB 04/29/18 00:00 05/06/18 00:00 04/29/18 23:56 Thiamine HCl 100 mg/Sodium Chloride 56 ml @ 112 mls/hr Q24H IVPB 04/29/18 15:00 05/29/18 14:59 04/29/18 15:09 Shoaib Ocampo MD Apr 30, 2018 06:26
[2018-04-30 06:29] LABS: PHOSPHORUS 2.7 MG/DL (2.5-4.9)
--- NOTE | 2018-04-30 07:00 | Progress Note ---
DATE: 04/28/2018 NOTE: "VERY POOR AUDIO QUALITY" SUBJECTIVE: The patient got and he was loaded with Neurontin. He is also on Keppra 250 mg b.i.d. This morning, the patient is comatose with no tonic-clonic activity noted. EEG suggests on the right and possible 1-minute seizure on the right side lasting 1 minute. He did not get his fentanyl. The patient cannot have an MRI scan and therefore will have a CT scan of the brain noncontrast. PHYSICAL EXAMINATION: VITAL SIGNS: His respiratory rate is 22 on the respirator, pulse is 103 and regular, blood pressure 109/57. MENTAL STATUS: The patient is comatose. He will lift his right arm to deep pain. He grimaces with deep pain. Minimally moves his left arm to deep pain. He moves slightly his left lower extremity to deep pain. He lifts his right leg off the bed to deep pain. is decreased bilaterally. Reflexes are zero in the upper and lower extremities with mute toes. Sensory exam, he has some response to deep pain. CRANIAL NERVE II: Visual boogie were absent. CRANIAL NERVES III, IV, AND : The eyes were in the midline with little movement on partial . Pupils are approximately 4 mm with [id number] reaction. CRANIAL NERVE V: Corneals are decreased bilaterally. CRANIAL NERVE VII: Winks to Q-tip in the left naris. CRANIAL NERVES VIII, IX, X, XI, AND XII: Could not be tested. LABORATORY EXAMINATION: His hemoglobin today is 8.6, platelet count 114,000. White count is 16,400; it is down from yesterday's 16,900. Chemistries, his sodium is 142, chloride is 108, creatinine is 3.5, BUN is 52, anion gap is 18.5, glucose is 109, uric acid is 8.6. Calcium is 8, down from 8.9 yesterday. Magnesium is 2.2. Liver function tests today are normal. CPK is 245. Troponin is 0.158. Amylase and lipase were low today that is 22 and 28. The arterial blood gas today is pO2 is 49.8, pCO2 is 32.9, pH is 7.252. Urinalysis today reveals 2-4 wbc's per high-powered field, +3 protein, +2 ketones, +1 urine blood, urine color is brown. The patient's pulmonary function is deteriorating by his comatose and shows non-stereotypical activity suggests a lesion in the right hemisphere. The lorazepam might be causing this. IMPRESSION: The patient cannot have fentanyl. The patient will need a CT scan of the brain to see if he had a stroke or other lesions in the right hemisphere. PLAN: 1. CT scan of the brain if possible today. 2. Repeat EEG today. 3. No fentanyl. James Caicedo MD DR: Manisha JOB#: [id number] CC:
--- NOTE | 2018-04-30 07:00 | NUR ---
Received Patient on Vent settings of AC 16, VT 600, FIO2 90%, PEEP +5. Pt intubated with ETT 7.5 at 23cm lipline, secured by anchorfast. Patient is currently unresponsive. Breath sounds rhonchi bilaterally, sxn minimal amounts of thin clear secretions. Vent plugged into red outlet, ambubag at bedside. Pt resting comfortably, in no apparent distress at this time. Will continue to monitor patient.
--- NOTE | 2018-04-30 07:36 | NUR ---
HAND-OFF: Report given to Ani RN.using SBAR
--- NOTE | 2018-04-30 08:00 | NUR ---
NURSE NOTES: Received patient Obtunded. 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 Patient intubated 7.5/23 cm LL AC 16 VT 600 Peep 5 FiO2 90%. Lung sounds diminished bilaterally. Patient has R N. NGT feeding held for abdominal ultrasound. Skin intact. Blood sugar 191 coverage willl be given at 9. Potassium 3.[address] guaman alog with mag level. R fem tlc R wrist 22. D5 1/2 NS with 10 meq KCL at 100 cc/hr. Levophed at 3 mcg/hr titrated. Confirmed with that bladder scan is NOT needed q shift. Will continue to monitor patient. Blood transfusion order obtained from dr. mccormack, consent given by daughter. Will continue to monitor patient.
--- NOTE | 2018-04-30 08:28 | NUR ---
04/30 CONCERNING MRI..PT ON VENT, WILL BE GETTING A BLOOD TRANSFUSION. CREATININE 4.2, NOT A DIALYSIS PT. SHARLA HAYDEN. ARIEL 8:25
--- NOTE | 2018-04-30 08:37 | NUR ---
ST NOTE: PT TRANSFERRED TO ICU, HIGHER LEVEL CARE. PLEASE RE-ORDER ST EVAL WHEN PT IS MEDICALLY STABLE. D/C FROM SKILLED ST SERVICE.
[2018-04-30] MEDS: Heparin 5000 units/ml inj SUBQ SCH ×2 (09:00→20:34)
--- NOTE | 2018-04-30 09:23 | Pulmonolgy Critical Care Note ---
Critical Care - Asmt/Plan Problems: (1) Aspiration pneumonia (2) Bilateral pneumonia (3) Hypoxemia (4) Renal failure (ARF), acute on chronic (5) Diabetic nephropathy (6) Epileptic seizure, generalized (7) Marijuana abuse (8) Alcohol abuse (9) Alcohol withdrawal (10) Anemia Assessment/Plan: -ABG -CXR -Continue ventilatory support/settings reviewed -Should resume Versed gtt, may help synchrony with vent -Keppra/Dilantin, repeat EEG, repeat CT brain and transfer to [facility] per neuro when able -Titrate NE to keep MAP > 60 -Abx (Zosyn) per ID, F/U Cx's, may bronch -RTC and PRN DUOnebs -TF's -Monitor BS, SQ insulin, F/U ENDO recs -mIVF, monitor volumes -MVI/thiamine/Folate -DVT Px: Hep SQ -Keep in ICU, transfer to [facility] when able CCT 60 D/W family @ bedside 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 RT D/W PMD and [facility] transfer center Disposition: transfer to - [facility] NEUROICU for cEEG Time Spent (Minutes): 60 Critical Care - Objective Last 24 Hour Vital Signs Date Time Temp Pulse Resp B/P (MAP) Pulse Ox O2 Delivery O2 Flow Rate FiO2 04/30/18 08:00 100 40 108/60 (76) 98 04/30/18 08:00 Mechanical Ventilator 04/30/18 08:00 90 04/30/18 07:45 122/58 04/30/18 07:30 101 40 114/62 (79) 99 04/30/18 07:24 96 37 100 Mechanical Ventilator 90 04/30/18 07:22 96 39 90 04/30/18 07:14 97 39 100 Mechanical Ventilator 90 04/30/18 07:00 96 40 104/70 (81) 99 04/30/18 06:00 96 42 120/57 (78) 96 04/30/18 05:30 96 42 117/65 (82) 96 04/30/18 05:24 97 41 90 04/30/18 05:00 96 40 129/56 (80) 98 04/30/18 04:30 93 41 113/63 (80) 99 04/30/18 04:00 95 04/30/18 04:00 90 04/30/18 04:00 98.6 95 41 87/49 (62) 99 04/30/18 04:00 Mechanical Ventilator 04/30/18 03:30 96 41 115/67 (83) 99 04/30/18 03:20 97 39 90 04/30/18 03:00 98 40 104/54 (71) 99 04/30/18 02:30 98 40 104/54 (71) 99 04/30/18 02:00 99 40 108/59 (75) 97 04/30/18 01:30 101 41 131/68 (89) 96 04/30/18 01:25 100 39 100 Mechanical Ventilator 90 04/30/18 01:13 99 40 95 Mechanical Ventilator 90 04/30/18 01:13 99 40 90 04/30/18 01:00 98 39 120/54 (76) 96 04/30/18 01:00 125/56 04/30/18 00:30 98 39 126/54 (78) 96 04/30/18 00:00 98 04/30/18 00:00 98.2 98 39 112/55 (74) 96 04/30/18 00:00 112/55 04/30/18 00:00 Mechanical Ventilator 04/30/18 00:00 90 04/30/18 00:00 105 04/29/18 23:30 98 39 122/59 (80) 96 04/29/18 23:28 97 40 90 04/29/18 23:00 126/68 04/29/18 23:00 97 39 126/68 (87) 95 04/29/18 22:30 95 38 97/60 (72) 94 04/29/18 22:00 99/63 04/29/18 22:00 96 38 99/63 (75) 98 04/29/18 21:26 97 39 90 04/29/18 21:00 104/64 04/29/18 21:00 100 38 104/64 (77) 98 04/29/18 20:30 100 39 117/61 (79) 98 04/29/18 20:04 99 38 100 Mechanical Ventilator 90 04/29/18 20:00 Mechanical Ventilator 04/29/18 20:00 90 04/29/18 20:00 100 04/29/18 20:00 115/60 04/29/18 20:00 98.0 100 39 115/60 (78) 98 04/29/18 19:55 97 40 90 04/29/18 19:55 97 40 97 Mechanical Ventilator 90 04/29/18 19:00 98 38 111/56 (74) 97 04/29/18 18:30 100 39 123/60 (81) 96 04/29/18 18:00 98.8 100 38 113/60 (77) 100 04/29/18 18:00 121/59 04/29/18 17:30 101 39 98/54 (69) 99 04/29/18 17:00 106/53 04/29/18 17:00 103 40 114/54 (74) 100 04/29/18 16:56 103 39 90 04/29/18 16:30 105 42 117/55 (75) 100 04/29/18 16:00 Mechanical Ventilator 04/29/18 16:00 90 04/29/18 16:00 105 04/29/18 16:00 108/50 04/29/18 16:00 99.0 04/29/18 15:30 106 39 107/55 (72) 99 04/29/18 15:17 107 40 90 04/29/18 15:15 99.9 106 39 125/56 (79) 99 04/29/18 15:00 125/56 04/29/18 15:00 106 34 115/51 (72) 99 04/29/18 14:45 103 32 102/50 (67) 98 04/29/18 14:44 102 35 87/52 (64) 100 04/29/18 14:30 103 36 91/49 (63) 98 04/29/18 14:30 103 36 91/49 (63) 98 04/29/18 14:15 104 35 94/54 (67) 98 04/29/18 14:00 106 38 101/47 (65) 99 04/29/18 14:00 94/54 04/29/18 14:00 106 38 101/47 (65) 99 04/29/18 13:41 27 Mechanical Ventilator 04/29/18 13:30 112 33 125/57 (79) 99 04/29/18 13:29 102 26 99 Mechanical Ventilator 90 04/29/18 13:22 103 26 98 Mechanical Ventilator 90 04/29/18 13:14 105 39 90 04/29/18 13:00 106 39 113/54 (73) 98 04/29/18 13:00 114/56 04/29/18 13:00 39 Mechanical Ventilator 04/29/18 12:45 105 38 116/52 (73) 100 04/29/18 12:30 105 40 105/53 (70) 100 04/29/18 12:15 105 38 109/51 (70) 100 04/29/18 12:00 Mechanical Ventilator 04/29/18 12:00 98.1 105 39 105/50 (68) 99 04/29/18 12:00 104 04/29/18 12:00 109/51 04/29/18 12:00 39 Mechanical Ventilator 04/29/18 12:00 90 04/29/18 11:30 107 39 143/49 (80) 98 04/29/18 11:29 107 40 90 04/29/18 11:00 109 39 111/52 (71) 100 04/29/18 11:00 111/56 04/29/18 11:00 39 Mechanical Ventilator 04/29/18 10:30 108 39 110/55 (73) 100 04/29/18 10:00 104 39 112/52 (72) 100 04/29/18 10:00 113/52 04/29/18 10:00 39 Mechanical Ventilator 100 04/29/18 09:45 104 40 106/53 (70) 100 04/29/18 09:30 103 39 106/51 (69) 100 04/29/18 09:15 104 39 111/46 (67) 100 Status: obtunded - intubated Condition: critical HEENT: other - 6 cm JVD Lungs: rhonchi Heart: HR/BP unstable Abdomen: soft, non-tender, active bowel sounds Extremities: edema - 1+, cyanosis - no, clubbing - no Micro: Microbiology Date/Time Source Procedure Growth Status 04/28/18 06:00 Sputum Gram Stain - Final Resulted 04/28/18 06:00 Sputum Sputum Culture - Preliminary NO GROWTH AFTER 24 HOURS Resulted 04/28/18 03:08 Urine,Clean Catch Urine Culture - Final NO GROWTH AFTER 48 HOURS Complete Accucheck: 191 Blood Sugars: BS controlled Critical Care - Subjective ROS Limited/Unobtainable: Yes ICU Day: 4 Intubation Day: 4 Interval Events: Obtunded, no cEEG @ [facility], last EEG yesterday with anoxic brain injury, per neuro may have had a CVA Peak pressure 40s, SaO2 90s RR 40s Versed gtt stopped on Dilantin and Keppra Hb 6.6 getting PRBC, off insulin gtt FI02: 90 Vent Support Breath Rate: 16 Vent Support Mode: AC Vent Tidal Volume: 600 Sputum Amount: Moderate PEEP: 5.0 PIP: 41 I&O: Intake and Output 04/29/18 04/30/18 19:00 07:00 Intake Total 2662.84 ml 1516.09 ml Output Total 85 ml 470 ml Balance 2577.84 ml 1046.09 ml IV Total 2662.84 ml 1516.09 ml Output Urine Total 85 ml 470 ml ET-Tube: 7.5 ET Position: 23 Abhi Griffin MD Apr 30, 2018 09:23
[2018-04-30] MEDS: PHENYTOIN IVPB SCH (09:32)
[2018-04-30] MEDS: NS IVPB SCH (09:32)
[2018-04-30] MEDS: Acyclovir 1,000 MG in NS 275 ML IV SCH (09:32)
[2018-04-30] MEDS: NS IV SCH ×2 (09:32→20:52)
[2018-04-30] MEDS: LEVETIRACETAM IV SCH ×2 (09:32→20:52)
[2018-04-30] MEDS: Pantoprazole Inj IVP SCH ×2 (09:32→20:12)
--- NOTE | 2018-04-30 09:32 | NUR ---
RADIOLOGY DEPT., CHEST X-RAY DONE.-P.DYE
[2018-04-30] MEDS: Allopurinol 100mg Tab NG SCH (09:33)
[2018-04-30] MEDS: Levemir Flexpen SUBQ SCH ×2 (09:40→18:56)
--- NOTE | 2018-04-30 10:00 | NUR ---
NURSE NOTES: Patient turned and repositioned. No new orders at this time. Ativan given for anxiety, Ventilator setting RR increased to 20 per MD order. Currently undergoing abdominal ultrasound. 1 unit of PRBC order added on by Dr. guaman - total of 2 units of PRBC will be transfused once blood bank has it ready. VSS. No distress noted at this time. Will continue plan of care.
[2018-04-30] MEDS: LORazepam Inj 2mg/ml 1ml IV PRN ×3 (10:09→22:26)
--- NOTE | 2018-04-30 11:23 | Diagnostic Imaging Report ---
Indication: Dyspnea Technique: One view of the chest Comparison: 04/27/2018 Findings: Endotracheal tube has retracted, but position still satisfactory, below the thoracic inlet about 8 cm above the kleber. There is interim worsening of previously demonstrated extensive diffuse bilateral airspace consolidation. Interim placement of a nasogastric tube, tip which projects beyond the edge of the image, presumably at the gastric antrum. Suspect small amount of pleural fluid on the right. The heart size is borderline enlarged. Impression: Over 3 days, interim worsening of previously demonstrated extensive bilateral pulmonary parenchymal disease, pattern suggestive of ARDS Suspect small right pleural effusion Satisfactory nasogastric intubation
--- NOTE | 2018-04-30 11:39 | GI Progress Note ---
Assessment/Plan Problems: (1) Alcohol withdrawal ICD Codes: F10.239 - Alcohol dependence with withdrawal, unspecified SNOMED: 538503186 (2) Anemia ICD Codes: D64.9 - Anemia, unspecified SNOMED: 505497178 (3) Alcohol abuse ICD Codes: F10.10 - Alcohol abuse, uncomplicated SNOMED: 67250751 (4) Marijuana abuse ICD Codes: F12.10 - Cannabis abuse, uncomplicated SNOMED: 84082888 (5) Acute respiratory failure ICD Codes: J96.00 - Acute respiratory failure, unspecified whether with hypoxia or hypercapnia SNOMED: 04839322 Status: unchanged Status Narrative Discussed with Dr. Jarrett. Assessment/Plan monitor labs prn transfusions, add another OB stool ppi icu care fu pulm hold NGTF per neurology pending possible transfer to [facility] The patient was seen and examined at bedside and all new and available data was reviewed in the patients chart. I agree with the above findings, impression and plan. (Patient seen earlier today. Signature stamp does not reflect patient encounter time.). - Tyler Jarrett MD Subjective Subjective limited Objective Last 24 Hour Vital Signs Date Time Temp Pulse Resp B/P (MAP) Pulse Ox O2 Delivery O2 Flow Rate FiO2 04/30/18 11:24 95 44 90 04/30/18 11:00 98 40 108/60 (76) 98 04/30/18 10:30 101 40 102/62 (75) 98 04/30/18 10:00 100 40 108/60 (76) 98 04/30/18 09:30 98 40 105/62 (76) 98 04/30/18 09:26 100 41 90 04/30/18 09:00 98.9 94 40 110/58 (75) 99 04/30/18 08:30 98 40 106/64 (78) 98 04/30/18 08:00 100 40 108/60 (76) 98 04/30/18 08:00 Mechanical Ventilator 04/30/18 08:00 90 04/30/18 08:00 98 04/30/18 07:45 122/58 04/30/18 07:30 101 40 114/62 (79) 99 04/30/18 07:24 96 37 100 Mechanical Ventilator 90 04/30/18 07:22 96 39 90 04/30/18 07:14 97 39 100 Mechanical Ventilator 90 04/30/18 07:00 96 40 104/70 (81) 99 04/30/18 06:00 96 42 120/57 (78) 96 04/30/18 05:30 96 42 117/65 (82) 96 04/30/18 05:24 97 41 90 04/30/18 05:00 96 40 129/56 (80) 98 04/30/18 04:30 93 41 113/63 (80) 99 04/30/18 04:00 95 04/30/18 04:00 90 04/30/18 04:00 98.6 95 41 87/49 (62) 99 04/30/18 04:00 Mechanical Ventilator 04/30/18 03:30 96 41 115/67 (83) 99 04/30/18 03:20 97 39 90 04/30/18 03:00 98 40 104/54 (71) 99 04/30/18 02:30 98 40 104/54 (71) 99 04/30/18 02:00 99 40 108/59 (75) 97 04/30/18 01:30 101 41 131/68 (89) 96 04/30/18 01:25 100 39 100 Mechanical Ventilator 90 04/30/18 01:13 99 40 95 Mechanical Ventilator 90 04/30/18 01:13 99 40 90 04/30/18 01:00 98 39 120/54 (76) 96 04/30/18 01:00 125/56 04/30/18 00:30 98 39 126/54 (78) 96 04/30/18 00:00 98 04/30/18 00:00 98.2 98 39 112/55 (74) 96 04/30/18 00:00 112/55 04/30/18 00:00 Mechanical Ventilator 04/30/18 00:00 90 04/30/18 00:00 105 04/29/18 23:30 98 39 122/59 (80) 96 04/29/18 23:28 97 40 90 04/29/18 23:00 126/68 04/29/18 23:00 97 39 126/68 (87) 95 04/29/18 22:30 95 38 97/60 (72) 94 04/29/18 22:00 99/63 04/29/18 22:00 96 38 99/63 (75) 98 04/29/18 21:26 97 39 90 3/17/19 21:00 104/64 04/29/18 21:00 100 38 104/64 (77) 98 04/29/18 20:30 100 39 117/61 (79) 98 04/29/18 20:04 99 38 100 Mechanical Ventilator 90 04/29/18 20:00 Mechanical Ventilator 04/29/18 20:00 90 04/29/18 20:00 100 04/29/18 20:00 115/60 04/29/18 20:00 98.0 100 39 115/60 (78) 98 04/29/18 19:55 97 40 90 04/29/18 19:55 97 40 97 Mechanical Ventilator 90 04/29/18 19:00 98 38 111/56 (74) 97 04/29/18 18:30 100 39 123/60 (81) 96 04/29/18 18:00 98.8 100 38 113/60 (77) 100 04/29/18 18:00 121/59 04/29/18 17:30 101 39 98/54 (69) 99 04/29/18 17:00 106/53 04/29/18 17:00 103 40 114/54 (74) 100 04/29/18 16:56 103 39 90 04/29/18 16:30 105 42 117/55 (75) 100 04/29/18 16:00 Mechanical Ventilator 04/29/18 16:00 90 04/29/18 16:00 105 04/29/18 16:00 108/50 04/29/18 16:00 99.0 04/29/18 15:30 106 39 107/55 (72) 99 04/29/18 15:17 107 40 90 04/29/18 15:15 99.9 106 39 125/56 (79) 99 04/29/18 15:00 125/56 04/29/18 15:00 106 34 115/51 (72) 99 04/29/18 14:45 103 32 102/50 (67) 98 04/29/18 14:44 102 35 87/52 (64) 100 04/29/18 14:30 103 36 91/49 (63) 98 04/29/18 14:30 103 36 91/49 (63) 98 04/29/18 14:15 104 35 94/54 (67) 98 04/29/18 14:00 106 38 101/47 (65) 99 04/29/18 14:00 94/54 04/29/18 14:00 106 38 101/47 (65) 99 04/29/18 13:41 27 Mechanical Ventilator 04/29/18 13:30 112 33 125/57 (79) 99 04/29/18 13:29 102 26 99 Mechanical Ventilator 90 04/29/18 13:22 103 26 98 Mechanical Ventilator 90 04/29/18 13:14 105 39 90 04/29/18 13:00 106 39 113/54 (73) 98 04/29/18 13:00 114/56 04/29/18 13:00 39 Mechanical Ventilator 04/29/18 12:45 105 38 116/52 (73) 100 04/29/18 12:30 105 40 105/53 (70) 100 04/29/18 12:15 105 38 109/51 (70) 100 04/29/18 12:00 Mechanical Ventilator 04/29/18 12:00 98.1 105 39 105/50 (68) 99 04/29/18 12:00 104 04/29/18 12:00 109/51 04/29/18 12:00 39 Mechanical Ventilator 04/29/18 12:00 90 Intake and Output 04/29/18 04/30/18 19:00 07:00 Intake Total 2662.84 ml 1516.09 ml Output Total 85 ml 470 ml Balance 2577.84 ml 1046.09 ml IV Total 2662.84 ml 1516.09 ml Output Urine Total 85 ml 470 ml Laboratory Tests Test 04/29/18 15:00 04/30/18 04:30 04/30/18 09:20 C-Reactive Protein, Quantitative 59.5 mg/dL (0.00-0.90) H White Blood Count 18.4 K/UL (4.8-10.8) H Red Blood Count 2.10 M/UL (4.70-6.10) L Hemoglobin 6.6 G/DL (14.2-18.0) *L Hematocrit 19.7 % (42.0-52.0) L Mean Corpuscular Volume 94 FL (80-99) Mean Corpuscular Hemoglobin 31.6 PG (27.0-31.0) H Mean Corpuscular Hemoglobin Concent 33.8 G/DL (32.0-36.0) Red Cell Distribution Width 12.4 % (11.6-14.8) Platelet Count 114 K/UL (150-450) L Mean Platelet Volume 7.0 FL (6.5-10.1) Neutrophils (%) (Auto) % (45.0-75.0) Lymphocytes (%) (Auto) % (20.0-45.0) Monocytes (%) (Auto) % (1.0-10.0) Eosinophils (%) (Auto) % (0.0-3.0) Basophils (%) (Auto) % (0.0-2.0) Differential Total Cells Counted 100 Neutrophils % (Manual) 97 % (45-75) H Lymphocytes % (Manual) 2 % (20-45) L Monocytes % (Manual) 1 % (1-10) Eosinophils % (Manual) 0 % (0-3) Basophils % (Manual) 0 % (0-2) Band Neutrophils 0 % (0-8) Platelet Estimate Decreased L Platelet Morphology Normal Rip Cells Occasional Sodium Level 139 MMOL/L (136-145) Potassium Level 3.2 MMOL/L (3.5-5.1) L Chloride Level 108 MMOL/L (98-107) H Carbon Dioxide Level 17 MMOL/L (21-32) L Anion Gap 14 mmol/L (5-15) Blood Urea Nitrogen 65 mg/dL (7-18) H Creatinine 4.2 MG/DL (0.55-1.30) H Estimat Glomerular Filtration Rate 14.7 mL/min (>60) Glucose Level 160 MG/DL (74-106) H Uric Acid 7.6 MG/DL (2.6-7.2) H Calcium Level 8.1 MG/DL (8.5-10.1) L Phosphorus Level 2.7 MG/DL (2.5-4.9) Magnesium Level 1.7 MG/DL (1.8-2.4) L Total Bilirubin 0.5 MG/DL (0.2-1.0) Aspartate Amino Transf (AST/SGOT) 27 U/L (15-37) Alanine Aminotransferase (ALT/SGPT) 15 U/L (12-78) Alkaline Phosphatase 51 U/L (46-116) Ammonia 18 umol/L (11-32) Troponin I 0.103 ng/mL (0.000-0.056) Pro-B-Type Natriuretic Peptide 9252 pg/mL (0-125) H Total Protein 5.5 G/DL (6.4-8.2) L Albumin 2.1 G/DL (3.4-5.0) L Globulin 3.4 g/dL Albumin/Globulin Ratio 0.6 (1.0-2.7) L Lipase 22 U/L (73-393) L Random Vancomycin Level 17.9 ug/mL Phenytoin (Dilantin) Level 13.0 ug/mL (10-20) Arterial Blood pH 7.343 (7.350-7.450) Arterial Blood Partial Pressure CO2 29.1 mmHg (35.0-45.0) L Arterial Blood Partial Pressure O2 83.2 mmHg (75.0-100.0) Arterial Blood HCO3 15.5 mmol/L (22.0-26.0) *L Arterial Blood Oxygen Saturation 95.3 % (95-100) Arterial Blood Base Excess -9.3 (-2-2) *L Aaron Test Positive Height (Feet): 5 Height (Inches): 10.00 Weight (Pounds): 163 General Appearance: WD/WN, no apparent distress, alert Cardiovascular: normal rate Respiratory/Chest: normal breath sounds, no respiratory distress, other - mech vent Abdominal Exam: normal bowel sounds, non tender, soft, GT site - c/d/i Extremities: non-tender Wendy Wilson NP Apr 30, 2018 11:39
--- NOTE | 2018-04-30 11:51 | Cardiac Electrophysiology PN ---
Subjective Subjective [id number] Objective Last 24 Hour Vital Signs Date Time Temp Pulse Resp B/P (MAP) Pulse Ox O2 Delivery O2 Flow Rate FiO2 04/30/18 11:24 95 44 90 04/30/18 11:00 98 40 108/60 (76) 98 04/30/18 10:30 101 40 102/62 (75) 98 04/30/18 10:00 100 40 108/60 (76) 98 04/30/18 09:30 98 40 105/62 (76) 98 04/30/18 09:26 100 41 90 04/30/18 09:00 98.9 94 40 110/58 (75) 99 04/30/18 08:30 98 40 106/64 (78) 98 04/30/18 08:00 100 40 108/60 (76) 98 04/30/18 08:00 Mechanical Ventilator 04/30/18 08:00 90 04/30/18 08:00 98 04/30/18 07:45 122/58 04/30/18 07:30 101 40 114/62 (79) 99 04/30/18 07:24 96 37 100 Mechanical Ventilator 90 04/30/18 07:22 96 39 90 04/30/18 07:14 97 39 100 Mechanical Ventilator 90 04/30/18 07:00 96 40 104/70 (81) 99 04/30/18 06:00 96 42 120/57 (78) 96 04/30/18 05:30 96 42 117/65 (82) 96 04/30/18 05:24 97 41 90 04/30/18 05:00 96 40 129/56 (80) 98 04/30/18 04:30 93 41 113/63 (80) 99 04/30/18 04:00 95 04/30/18 04:00 90 04/30/18 04:00 98.6 95 41 87/49 (62) 99 04/30/18 04:00 Mechanical Ventilator 04/30/18 03:30 96 41 115/67 (83) 99 04/30/18 03:20 97 39 90 04/30/18 03:00 98 40 104/54 (71) 99 04/30/18 02:30 98 40 104/54 (71) 99 04/30/18 02:00 99 40 108/59 (75) 97 04/30/18 01:30 101 41 131/68 (89) 96 04/30/18 01:25 100 39 100 Mechanical Ventilator 90 04/30/18 01:13 99 40 95 Mechanical Ventilator 90 04/30/18 01:13 99 40 90 04/30/18 01:00 98 39 120/54 (76) 96 04/30/18 01:00 125/56 04/30/18 00:30 98 39 126/54 (78) 96 04/30/18 00:00 98 04/30/18 00:00 98.2 98 39 112/55 (74) 96 04/30/18 00:00 112/55 04/30/18 00:00 Mechanical Ventilator 04/30/18 00:00 90 04/30/18 00:00 105 04/29/18 23:30 98 39 122/59 (80) 96 04/29/18 23:28 97 40 90 04/29/18 23:00 126/68 04/29/18 23:00 97 39 126/68 (87) 95 04/29/18 22:30 95 38 97/60 (72) 94 04/29/18 22:00 99/63 04/29/18 22:00 96 38 99/63 (75) 98 04/29/18 21:26 97 39 90 04/29/18 21:00 104/64 04/29/18 21:00 100 38 104/64 (77) 98 04/29/18 20:30 100 39 117/61 (79) 98 04/29/18 20:04 99 38 100 Mechanical Ventilator 90 04/29/18 20:00 Mechanical Ventilator 04/29/18 20:00 90 04/29/18 20:00 100 04/29/18 20:00 115/60 04/29/18 20:00 98.0 100 39 115/60 (78) 98 04/29/18 19:55 97 40 90 04/29/18 19:55 97 40 97 Mechanical Ventilator 90 04/29/18 19:00 98 38 111/56 (74) 97 04/29/18 18:30 100 39 123/60 (81) 96 04/29/18 18:00 98.8 100 38 113/60 (77) 100 04/29/18 18:00 121/59 04/29/18 17:30 101 39 98/54 (69) 99 04/29/18 17:00 106/53 04/29/18 17:00 103 40 114/54 (74) 100 04/29/18 16:56 103 39 90 04/29/18 16:30 105 42 117/55 (75) 100 04/29/18 16:00 Mechanical Ventilator 04/29/18 16:00 90 04/29/18 16:00 105 04/29/18 16:00 108/50 04/29/18 16:00 99.0 04/29/18 15:30 106 39 107/55 (72) 99 04/29/18 15:17 107 40 90 04/29/18 15:15 99.9 106 39 125/56 (79) 99 04/29/18 15:00 125/56 04/29/18 15:00 106 34 115/51 (72) 99 04/29/18 14:45 103 32 102/50 (67) 98 04/29/18 14:44 102 35 87/52 (64) 100 04/29/18 14:30 103 36 91/49 (63) 98 04/29/18 14:30 103 36 91/49 (63) 98 04/29/18 14:15 104 35 94/54 (67) 98 04/29/18 14:00 106 38 101/47 (65) 99 04/29/18 14:00 94/54 04/29/18 14:00 106 38 101/47 (65) 99 04/29/18 13:41 27 Mechanical Ventilator 04/29/18 13:30 112 33 125/57 (79) 99 04/29/18 13:29 102 26 99 Mechanical Ventilator 90 04/29/18 13:22 103 26 98 Mechanical Ventilator 90 04/29/18 13:14 105 39 90 04/29/18 13:00 106 39 113/54 (73) 98 04/29/18 13:00 114/56 04/29/18 13:00 39 Mechanical Ventilator 04/29/18 12:45 105 38 116/52 (73) 100 04/29/18 12:30 105 40 105/53 (70) 100 04/29/18 12:15 105 38 109/51 (70) 100 04/29/18 12:00 Mechanical Ventilator 04/29/18 12:00 98.1 105 39 105/50 (68) 99 04/29/18 12:00 104 04/29/18 12:00 109/51 04/29/18 12:00 39 Mechanical Ventilator 04/29/18 12:00 90 Intake and Output 04/29/18 04/30/18 19:00 07:00 Intake Total 2662.84 ml 1516.09 ml Output Total 85 ml 470 ml Balance 2577.84 ml 1046.09 ml IV Total 2662.84 ml 1516.09 ml Output Urine Total 85 ml 470 ml Laboratory Tests Test 04/29/18 15:00 04/30/18 04:30 04/30/18 09:20 C-Reactive Protein, Quantitative 59.5 mg/dL (0.00-0.90) H White Blood Count 18.4 K/UL (4.8-10.8) H Red Blood Count 2.10 M/UL (4.70-6.10) L Hemoglobin 6.6 G/DL (14.2-18.0) *L Hematocrit 19.7 % (42.0-52.0) L Mean Corpuscular Volume 94 FL (80-99) Mean Corpuscular Hemoglobin 31.6 PG (27.0-31.0) H Mean Corpuscular Hemoglobin Concent 33.8 G/DL (32.0-36.0) Red Cell Distribution Width 12.4 % (11.6-14.8) Platelet Count 114 K/UL (150-450) L Mean Platelet Volume 7.0 FL (6.5-10.1) Neutrophils (%) (Auto) % (45.0-75.0) Lymphocytes (%) (Auto) % (20.0-45.0) Monocytes (%) (Auto) % (1.0-10.0) Eosinophils (%) (Auto) % (0.0-3.0) Basophils (%) (Auto) % (0.0-2.0) Differential Total Cells Counted 100 Neutrophils % (Manual) 97 % (45-75) H Lymphocytes % (Manual) 2 % (20-45) L Monocytes % (Manual) 1 % (1-10) Eosinophils % (Manual) 0 % (0-3) Basophils % (Manual) 0 % (0-2) Band Neutrophils 0 % (0-8) Platelet Estimate Decreased L Platelet Morphology Normal Rip Cells Occasional Sodium Level 139 MMOL/L (136-145) Potassium Level 3.2 MMOL/L (3.5-5.1) L Chloride Level 108 MMOL/L (98-107) H Carbon Dioxide Level 17 MMOL/L (21-32) L Anion Gap 14 mmol/L (5-15) Blood Urea Nitrogen 65 mg/dL (7-18) H Creatinine 4.2 MG/DL (0.55-1.30) H Estimat Glomerular Filtration Rate 14.7 mL/min (>60) Glucose Level 160 MG/DL (74-106) H Uric Acid 7.6 MG/DL (2.6-7.2) H Calcium Level 8.1 MG/DL (8.5-10.1) L Phosphorus Level 2.7 MG/DL (2.5-4.9) Magnesium Level 1.7 MG/DL (1.8-2.4) L Total Bilirubin 0.5 MG/DL (0.2-1.0) Aspartate Amino Transf (AST/SGOT) 27 U/L (15-37) Alanine Aminotransferase (ALT/SGPT) 15 U/L (12-78) Alkaline Phosphatase 51 U/L (46-116) Ammonia 18 umol/L (11-32) Troponin I 0.103 ng/mL (0.000-0.056) Pro-B-Type Natriuretic Peptide 9252 pg/mL (0-125) H Total Protein 5.5 G/DL (6.4-8.2) L Albumin 2.1 G/DL (3.4-5.0) L Globulin 3.4 g/dL Albumin/Globulin Ratio 0.6 (1.0-2.7) L Lipase 22 U/L (73-393) L Random Vancomycin Level 17.9 ug/mL Phenytoin (Dilantin) Level 13.0 ug/mL (10-20) Arterial Blood pH 7.343 (7.350-7.450) Arterial Blood Partial Pressure CO2 29.1 mmHg (35.0-45.0) L Arterial Blood Partial Pressure O2 83.2 mmHg (75.0-100.0) Arterial Blood HCO3 15.5 mmol/L (22.0-26.0) *L Arterial Blood Oxygen Saturation 95.3 % (95-100) Arterial Blood Base Excess -9.3 (-2-2) *L Aaron Test Positive Microbiology Date/Time Source Procedure Growth Status 04/28/18 06:00 Sputum Gram Stain - Final Resulted 04/28/18 06:00 Sputum Sputum Culture - Preliminary NO GROWTH AFTER 24 HOURS Resulted 04/28/18 03:08 Urine,Clean Catch Urine Culture - Final NO GROWTH AFTER 48 HOURS Complete Earl Moreno MD Apr 30, 2018 11:51
--- NOTE | 2018-04-30 12:00 | NUR ---
NURSE NOTES: VSS. No distress noted. Turned and repositioned. Feeding initiated Nepro goal of 30 cc/hr currently started on 10 cc/hr. Will continue plan of care.
[2018-04-30] MEDS: Piperacillin/Tazobactam 3.375 GM in NS 110 ML IVPB SCH (12:59)
--- NOTE | 2018-04-30 13:05 | Diagnostic Imaging Report ---
Indication: Post nasogastric tube placement Technique: Supine view of the upper abdomen Comparison: none Findings: There is a nasogastric tube in place, tip projecting at the level gastric antrum. Bowel gas pattern is grossly unremarkable. There are cholecystectomy clips. There are extensive pulmonary infiltrates and small right pleural effusion noted.. These are also described on current chest radiographs Impression: Satisfactory nasogastric intubation Other findings as noted This agrees with the preliminary interpretation provided overnight by [facility] teleradiology service.
--- NOTE | 2018-04-30 14:00 | NUR ---
NURSE NOTES: Second unit of PRBC picked up and initiated. No adverse effects noted. VSS. Will continue to monitor patient. Turned and repositioned. No distress noted.
--- NOTE | 2018-04-30 14:40 | Infectious Diseases Prog Note ---
Assessment/Plan Assessment/Plan A 1. aspiration pneumonia 2. Sepsis, Septic shock 3.Hypoxemic respiratory failure 4. seizures 5. Acute renal failure 6. alcohol withdrawal 7. Anoxic encephalopathy 8.severe anemia P 1. Continue Zosyn & Acyclovir 2. will follow up cultures Subjective ROS Limited/Unobtainable: Yes Allergies: Coded Allergies: No Known Allergies (Unverified , 04/24/18) Objective Vital Signs Last 24 Hour Vital Signs Date Time Temp Pulse Resp B/P (MAP) Pulse Ox O2 Delivery O2 Flow Rate FiO2 04/30/18 14:00 95 40 111/65 (80) 98 04/30/18 13:30 98 40 104/60 (75) 98 04/30/18 13:21 94 43 100 Mechanical Ventilator 90 04/30/18 13:20 94 42 90 04/30/18 13:14 94 44 97 Mechanical Ventilator 90 04/30/18 13:00 95 40 108/62 (77) 98 04/30/18 12:30 97 40 114/60 (78) 99 04/30/18 12:00 90 04/30/18 12:00 97 04/30/18 12:00 Mechanical Ventilator 04/30/18 12:00 99.1 99 40 115/68 (84) 98 04/30/18 11:30 97 40 105/64 (78) 98 04/30/18 11:24 95 44 90 04/30/18 11:00 98 40 108/60 (76) 98 04/30/18 10:30 101 40 102/62 (75) 98 04/30/18 10:00 100 40 108/60 (76) 98 04/30/18 09:30 98 40 105/62 (76) 98 04/30/18 09:26 100 41 90 04/30/18 09:00 98.9 94 40 110/58 (75) 99 04/30/18 08:30 98 40 106/64 (78) 98 04/30/18 08:00 100 40 108/60 (76) 98 04/30/18 08:00 Mechanical Ventilator 04/30/18 08:00 90 04/30/18 08:00 98 04/30/18 07:45 122/58 04/30/18 07:30 101 40 114/62 (79) 99 04/30/18 07:24 96 37 100 Mechanical Ventilator 90 04/30/18 07:22 96 39 90 04/30/18 07:14 97 39 100 Mechanical Ventilator 90 04/30/18 07:00 96 40 104/70 (81) 99 04/30/18 06:00 96 42 120/57 (78) 96 04/30/18 05:30 96 42 117/65 (82) 96 04/30/18 05:24 97 41 90 04/30/18 05:00 96 40 129/56 (80) 98 04/30/18 04:30 93 41 113/63 (80) 99 04/30/18 04:00 95 04/30/18 04:00 90 04/30/18 04:00 98.6 95 41 87/49 (62) 99 04/30/18 04:00 Mechanical Ventilator 04/30/18 03:30 96 41 115/67 (83) 99 04/30/18 03:20 97 39 90 04/30/18 03:00 98 40 104/54 (71) 99 04/30/18 02:30 98 40 104/54 (71) 99 04/30/18 02:00 99 40 108/59 (75) 97 04/30/18 01:30 101 41 131/68 (89) 96 04/30/18 01:25 100 39 100 Mechanical Ventilator 90 04/30/18 01:13 99 40 95 Mechanical Ventilator 90 04/30/18 01:13 99 40 90 04/30/18 01:00 98 39 120/54 (76) 96 04/30/18 01:00 125/56 04/30/18 00:30 98 39 126/54 (78) 96 04/30/18 00:00 98 04/30/18 00:00 98.2 98 39 112/55 (74) 96 04/30/18 00:00 112/55 04/30/18 00:00 Mechanical Ventilator 04/30/18 00:00 90 04/30/18 00:00 105 04/29/18 23:30 98 39 122/59 (80) 96 04/29/18 23:28 97 40 90 04/29/18 23:00 126/68 04/29/18 23:00 97 39 126/68 (87) 95 04/29/18 22:30 95 38 97/60 (72) 94 04/29/18 22:00 99/63 04/29/18 22:00 96 38 99/63 (75) 98 04/29/18 21:26 97 39 90 04/29/18 21:00 104/64 04/29/18 21:00 100 38 104/64 (77) 98 04/29/18 20:30 100 39 117/61 (79) 98 04/29/18 20:04 99 38 100 Mechanical Ventilator 90 04/29/18 20:00 Mechanical Ventilator 04/29/18 20:00 90 04/29/18 20:00 100 04/29/18 20:00 115/60 04/29/18 20:00 98.0 100 39 115/60 (78) 98 04/29/18 19:55 97 40 90 04/29/18 19:55 97 40 97 Mechanical Ventilator 90 04/29/18 19:00 98 38 111/56 (74) 97 04/29/18 18:30 100 39 123/60 (81) 96 04/29/18 18:00 98.8 100 38 113/60 (77) 100 04/29/18 18:00 121/59 04/29/18 17:30 101 39 98/54 (69) 99 04/29/18 17:00 106/53 04/29/18 17:00 103 40 114/54 (74) 100 04/29/18 16:56 103 39 90 04/29/18 16:30 105 42 117/55 (75) 100 04/29/18 16:00 Mechanical Ventilator 04/29/18 16:00 90 04/29/18 16:00 105 04/29/18 16:00 108/50 04/29/18 16:00 99.0 04/29/18 15:30 106 39 107/55 (72) 99 04/29/18 15:17 107 40 90 04/29/18 15:15 99.9 106 39 125/56 (79) 99 04/29/18 15:00 125/56 04/29/18 15:00 106 34 115/51 (72) 99 04/29/18 14:45 103 32 102/50 (67) 98 04/29/18 14:44 102 35 87/52 (64) 100 Height (Feet): 5 Height (Inches): 10.00 Weight (Pounds): 163 HEENT: other - orally intubated Respiratory/Chest: lungs clear, other - on ventilator Cardiovascular: normal rate, other - R femoral line Abdomen: soft, non tender, other - NG tube Extremities: other - edema of hands Neurologic/Psychiatric: other - responds only to noxiou s stimuli Microbiology Date/Time Source Procedure Growth Status 04/28/18 06:00 Sputum Gram Stain - Final Resulted 04/28/18 06:00 Sputum Sputum Culture - Preliminary NO GROWTH AFTER 24 HOURS Resulted 04/28/18 03:08 Urine,Clean Catch Urine Culture - Final NO GROWTH AFTER 48 HOURS Complete Laboratory Tests Test 04/29/18 15:00 04/30/18 04:30 04/30/18 09:20 C-Reactive Protein, Quantitative 59.5 mg/dL (0.00-0.90) H White Blood Count 18.4 K/UL (4.8-10.8) H Red Blood Count 2.10 M/UL (4.70-6.10) L Hemoglobin 6.6 G/DL (14.2-18.0) *L Hematocrit 19.7 % (42.0-52.0) L Mean Corpuscular Volume 94 FL (80-99) Mean Corpuscular Hemoglobin 31.6 PG (27.0-31.0) H Mean Corpuscular Hemoglobin Concent 33.8 G/DL (32.0-36.0) Red Cell Distribution Width 12.4 % (11.6-14.8) Platelet Count 114 K/UL (150-450) L Mean Platelet Volume 7.0 FL (6.5-10.1) Neutrophils (%) (Auto) % (45.0-75.0) Lymphocytes (%) (Auto) % (20.0-45.0) Monocytes (%) (Auto) % (1.0-10.0) Eosinophils (%) (Auto) % (0.0-3.0) Basophils (%) (Auto) % (0.0-2.0) Differential Total Cells Counted 100 Neutrophils % (Manual) 97 % (45-75) H Lymphocytes % (Manual) 2 % (20-45) L Monocytes % (Manual) 1 % (1-10) Eosinophils % (Manual) 0 % (0-3) Basophils % (Manual) 0 % (0-2) Band Neutrophils 0 % (0-8) Platelet Estimate Decreased L Platelet Morphology Normal Rip Cells Occasional Sodium Level 139 MMOL/L (136-145) Potassium Level 3.2 MMOL/L (3.5-5.1) L Chloride Level 108 MMOL/L (98-107) H Carbon Dioxide Level 17 MMOL/L (21-32) L Anion Gap 14 mmol/L (5-15) Blood Urea Nitrogen 65 mg/dL (7-18) H Creatinine 4.2 MG/DL (0.55-1.30) H Estimat Glomerular Filtration Rate 14.7 mL/min (>60) Glucose Level 160 MG/DL (74-106) H Uric Acid 7.6 MG/DL (2.6-7.2) H Calcium Level 8.1 MG/DL (8.5-10.1) L Phosphorus Level 2.7 MG/DL (2.5-4.9) Magnesium Level 1.7 MG/DL (1.8-2.4) L Total Bilirubin 0.5 MG/DL (0.2-1.0) Aspartate Amino Transf (AST/SGOT) 27 U/L (15-37) Alanine Aminotransferase (ALT/SGPT) 15 U/L (12-78) Alkaline Phosphatase 51 U/L (46-116) Ammonia 18 umol/L (11-32) Troponin I 0.103 ng/mL (0.000-0.056) Pro-B-Type Natriuretic Peptide 9252 pg/mL (0-125) H Total Protein 5.5 G/DL (6.4-8.2) L Albumin 2.1 G/DL (3.4-5.0) L Globulin 3.4 g/dL Albumin/Globulin Ratio 0.6 (1.0-2.7) L Lipase 22 U/L (73-393) L Random Vancomycin Level 17.9 ug/mL Phenytoin (Dilantin) Level 13.0 ug/mL (10-20) Arterial Blood pH 7.343 (7.350-7.450) Arterial Blood Partial Pressure CO2 29.1 mmHg (35.0-45.0) L Arterial Blood Partial Pressure O2 83.2 mmHg (75.0-100.0) Arterial Blood HCO3 15.5 mmol/L (22.0-26.0) *L Arterial Blood Oxygen Saturation 95.3 % (95-100) Arterial Blood Base Excess -9.3 (-2-2) *L Aaron Test Positive Current Medications Medications (Trade) Dose Ordered Sig/Bj Route PRN Reason Start Time Stop Time Status Last Admin Dose Admin Acetaminophen (Tylenol) 650 mg Q4H PRN ORAL Mild Pain/Temp > 100.5 04/27/18 21:30 05/27/18 21:29 04/27/18 21:44 Acetaminophen (Tylenol) 650 mg Q4H PRN RECTAL Mild Pain (Pain Scale 1-3) 04/27/18 21:30 05/27/18 21:29 04/28/18 14:39 Acyclovir 1000 mg/ Sodium Chloride 275 ml @ 275 mls/hr Q24HRS IV 04/29/18 09:00 05/29/18 08:59 04/30/18 09:32 Albuterol/ Ipratropium (Albuterol/ Ipratropium) 3 ml Q4H PRN HHN Shortness of Breath 04/27/18 21:45 05/02/18 17:44 Albuterol/ Ipratropium (Albuterol/ Ipratropium) 3 ml Q6HRT HHN 04/28/18 01:00 05/02/18 18:59 04/30/18 13:22 Allopurinol (Zyloprim) 200 mg DAILY NG 04/29/18 09:00 05/28/18 08:59 04/30/18 09:33 Chlorhexidine Gluconate (Lidia-Hex 2%) 1 applic DAILY@2000 TOPIC 04/28/18 20:00 05/28/18 19:59 04/29/18 20:08 Clonidine HCl (Catapres Tab) 0.1 mg Q4H PRN ORAL bp over 160 syst 04/27/18 21:30 05/26/18 21:29 Dextrose (Dextrose 50%) 25 ml Q30M PRN IV Hypoglycemia 04/29/18 07:30 05/29/18 07:29 Dextrose (Dextrose 50%) 50 ml Q30M PRN IV Hypoglycemia 04/29/18 07:30 05/29/18 07:29 Dextrose/ Electrolytes 1,000 ml @ 100 mls/hr Q10H IV 04/29/18 17:00 05/29/18 16:59 04/30/18 12:56 Gadobutrol (Gadavist) 7.5 mmol NOW PRN IV Radiology Procedure 04/28/18 08:00 05/02/18 03:35 Heparin Sodium (Porcine) (Heparin 5000 units/ml) 5,000 units EVERY 12 HOURS SUBQ 04/28/18 09:00 05/27/18 20:59 04/29/18 09:20 Insulin Aspart (NovoLOG) EVERY 4 HOURS SUBQ 04/29/18 09:00 05/29/18 08:59 04/30/18 13:02 Insulin Detemir (Levemir) 6 units BID SUBQ 04/29/18 09:00 05/29/18 08:59 04/30/18 09:40 Levetiracetam 250 mg/Sodium Chloride 112.5 ml @ 450 mls/hr Q12HR IV 04/27/18 22:00 05/27/18 21:59 04/30/18 09:32 Lorazepam (Ativan 2mg/ml 1ml) 1 mg Q2H PRN IV alcohol withdraw, seizure 04/27/18 21:15 05/02/18 11:07 Lorazepam (Ativan 2mg/ml 1ml) 2 mg Q4H PRN IV For Anxiety 04/30/18 09:45 05/07/18 09:44 04/30/18 10:09 Metoclopramide HCl (Reglan) 10 mg Q6H PRN IVP Nausea & Vomiting 04/27/18 21:30 05/27/18 21:29 Midazolam HCl 100 ml @ 2 mls/hr Q24H IVPB 04/28/18 16:15 05/05/18 16:14 04/28/18 17:48 Norepinephrine Bitartrate 8 mg/ Dextrose 508 ml @ 0 mls/hr Q24H IV 04/29/18 07:45 05/29/18 07:44 04/29/18 07:50 Ondansetron HCl (Zofran) 4 mg Q6H PRN IVP Nausea & Vomiting 04/27/18 21:30 05/27/18 21:29 Pantoprazole (Protonix) 40 mg EVERY 12 HOURS IVP 04/28/18 09:00 05/25/18 20:59 04/30/18 09:32 Phenytoin 300 mg/ Sodium Chloride 116 ml @ 120 mls/hr DAILY IVPB 04/28/18 09:00 05/28/18 08:59 04/30/18 09:32 Piperacillin Sod/ Tazobactam Sod 3.375 gm/Sodium Chloride 110 ml @ 27.5 mls/hr Q12H IVPB 04/29/18 00:00 05/06/18 00:00 04/30/18 12:59 Thiamine HCl 100 mg/Sodium Chloride 56 ml @ 112 mls/hr Q24H IVPB 04/29/18 15:00 05/29/18 14:59 04/29/18 15:09 James Ortiz MD Apr 30, 2018 14:40
--- NOTE | 2018-04-30 14:56 | Diagnostic Imaging Report ---
Indication: Abdominal pain, leukocytosis Technique: Sow-scale and duplex images of the upper abdomen were obtained. Doppler interrogation of the pancreatic and hepatic vessels Comparison: none Findings: Small amount of free intraperitoneal fluid is seen within the gallbladder fossa Gallbladder is surgically absent. Common bile duct measures 10 mm in diameter. No intrahepatic biliary ductal dilatation. Liver demonstrates normal echogenicity, no focal abnormality. Portal vein and hepatic veins are patent. Pancreas is unremarkable. Spleen is unremarkable. Left kidney measures 11.1 cm in length. Right kidney measures 10.4 cm length. Both kidneys demonstrate normal echogenicity. There is no hydronephrosis. A cyst is seen in the interpolar region of the right kidney . Non-aneurysmal abdominal aorta . Prominent small bowel loops are demonstrated Impression: Surgically absent gallbladder. Mildly dilated, 10 mm, common bile duct. Likely related to postcholecystectomy state, downstream obstructive process not completely excludable,. Correlate with clinical findings, consider MRCP or nuclear medicine hepatobiliary scan when patient's condition permits if clinically indicated Trace ascites Nonspecific prominent bowel loops Incidental finding left renal cyst
--- NOTE | 2018-04-30 15:01 | NUR ---
[employer]PER[employer] NOTES SPOKE WITH RAY FROM [facility],FINANCIAL APPROVAL WAS OBTAINED.BED PENDING. WILL FOLLOW UP.
[2018-04-30] MEDS: Midazolam/D5W 100ml 100 ML IVPB SCH ×2 (15:55→19:55)
[2018-04-30] MEDS: Thiamine HCl 100 MG in NS 55 ML IVPB SCH (15:59)
--- NOTE | 2018-04-30 16:00 | NUR ---
NURSE NOTES: VSS. No distress noted. Will continue plan of care. Turned and repositikoned.
--- NOTE | 2018-04-30 17:13 | Nephrology Progress Note ---
Assessment/Plan Problem List: (1) Renal failure (ARF), acute on chronic Assessment: urine out put picked up (2) Diabetic nephropathy (3) Epileptic seizure, generalized (4) Alcohol abuse (5) Anemia (6) Acute respiratory failure Assessment Renal failure- Acute on Chronic Cr rising Anemia HTN by History MJ abuse Etoh abuse DM / Proteinuria : Nephropathy Fever , etiology? Plan trail of albumin followed by Lasix led to increase urine out put Nepro feeding Adjust Acyclovir dose per Neuro request avoid Nephrotoxics keep BP and BS in check AMIRA kidney noted 2D echo noted Urine studies pending fluid challenge Allopurinol DC Flomax- Has moralez monitor renal parameters K and Phos and Mag as needed Per orders Subjective ROS Limited/Unobtainable: Yes Objective Objective Last 24 Hour Vital Signs Date Time Temp Pulse Resp B/P (MAP) Pulse Ox O2 Delivery O2 Flow Rate FiO2 04/30/18 16:00 Mechanical Ventilator 04/30/18 15:24 96 41 90 04/30/18 15:00 95 40 116/65 (82) 98 04/30/18 14:30 98 40 118/66 (83) 98 04/30/18 14:00 95 40 111/65 (80) 98 04/30/18 13:30 98 40 104/60 (75) 98 04/30/18 13:21 94 43 100 Mechanical Ventilator 90 04/30/18 13:20 94 42 90 04/30/18 13:14 94 44 97 Mechanical Ventilator 90 04/30/18 13:00 95 40 108/62 (77) 98 04/30/18 12:30 97 40 114/60 (78) 99 04/30/18 12:00 90 04/30/18 12:00 97 04/30/18 12:00 Mechanical Ventilator 04/30/18 12:00 99.1 99 40 115/68 (84) 98 04/30/18 11:30 97 40 105/64 (78) 98 04/30/18 11:24 95 44 90 04/30/18 11:00 98 40 108/60 (76) 98 04/30/18 10:30 101 40 102/62 (75) 98 04/30/18 10:00 100 40 108/60 (76) 98 04/30/18 09:30 98 40 105/62 (76) 98 04/30/18 09:26 100 41 90 04/30/18 09:00 98.9 94 40 110/58 (75) 99 04/30/18 08:30 98 40 106/64 (78) 98 04/30/18 08:00 100 40 108/60 (76) 98 04/30/18 08:00 Mechanical Ventilator 04/30/18 08:00 90 04/30/18 08:00 98 04/30/18 07:45 122/58 04/30/18 07:30 101 40 114/62 (79) 99 04/30/18 07:24 96 37 100 Mechanical Ventilator 90 04/30/18 07:22 96 39 90 04/30/18 07:14 97 39 100 Mechanical Ventilator 90 04/30/18 07:00 96 40 104/70 (81) 99 04/30/18 06:00 96 42 120/57 (78) 96 04/30/18 05:30 96 42 117/65 (82) 96 04/30/18 05:24 97 41 90 04/30/18 05:00 96 40 129/56 (80) 98 04/30/18 04:30 93 41 113/63 (80) 99 04/30/18 04:00 95 04/30/18 04:00 90 04/30/18 04:00 98.6 95 41 87/49 (62) 99 04/30/18 04:00 Mechanical Ventilator 04/30/18 03:30 96 41 115/67 (83) 99 04/30/18 03:20 97 39 90 04/30/18 03:00 98 40 104/54 (71) 99 04/30/18 02:30 98 40 104/54 (71) 99 04/30/18 02:00 99 40 108/59 (75) 97 04/30/18 01:30 101 41 131/68 (89) 96 04/30/18 01:25 100 39 100 Mechanical Ventilator 90 04/30/18 01:13 99 40 95 Mechanical Ventilator 90 04/30/18 01:13 99 40 90 04/30/18 01:00 98 39 120/54 (76) 96 19 01:00 125/56 04/30/18 00:30 98 39 126/54 (78) 96 04/30/18 00:00 98 04/30/18 00:00 98.2 98 39 112/55 (74) 96 04/30/18 00:00 112/55 04/30/18 00:00 Mechanical Ventilator 04/30/18 00:00 90 04/30/18 00:00 105 04/29/18 23:30 98 39 122/59 (80) 96 04/29/18 23:28 97 40 90 04/29/18 23:00 126/68 04/29/18 23:00 97 39 126/68 (87) 95 04/29/18 22:30 95 38 97/60 (72) 94 04/29/18 22:00 99/63 04/29/18 22:00 96 38 99/63 (75) 98 04/29/18 21:26 97 39 90 04/29/18 21:00 104/64 04/29/18 21:00 100 38 104/64 (77) 98 04/29/18 20:30 100 39 117/61 (79) 98 04/29/18 20:04 99 38 100 Mechanical Ventilator 90 04/29/18 20:00 Mechanical Ventilator 04/29/18 20:00 90 04/29/18 20:00 100 04/29/18 20:00 115/60 04/29/18 20:00 98.0 100 39 115/60 (78) 98 04/29/18 19:55 97 40 90 04/29/18 19:55 97 40 97 Mechanical Ventilator 90 04/29/18 19:00 98 38 111/56 (74) 97 04/29/18 18:30 100 39 123/60 (81) 96 04/29/18 18:00 98.8 100 38 113/60 (77) 100 04/29/18 18:00 121/59 04/29/18 17:30 101 39 98/54 (69) 99 Intake and Output 04/29/18 04/30/18 19:00 07:00 Intake Total 2662.84 ml 1516.09 ml Output Total 85 ml 470 ml Balance 2577.84 ml 1046.09 ml IV Total 2662.84 ml 1516.09 ml Output Urine Total 85 ml 470 ml Laboratory Tests 04/30/18 04:30: White Blood Count 18.4H, Red Blood Count 2.10L, Hemoglobin 6.6*L, Hematocrit 19.7L, Mean Corpuscular Volume 94, Mean Corpuscular Hemoglobin 31.6H, Mean Corpuscular Hemoglobin Concent 33.8, Red Cell Distribution Width 12.4, Platelet Count 114L, Mean Platelet Volume 7.0, Neutrophils (%) (Auto) , Lymphocytes (%) ( Auto) , Monocytes (%) (Auto) , Eosinophils (%) (Auto) , Basophils (%) (Auto) , Differential Total Cells Counted 100, Neutrophils % (Manual) 97H, Lymphocytes % (Manual) 2L, Monocytes % (Manual) 1, Eosinophils % (Manual) 0, Basophils % ( Manual) 0, Band Neutrophils 0, Platelet Estimate DecreasedL, Platelet Morphology Normal, Rip Cells Occasional, Sodium Level 139, Potassium Level 3.2L , Chloride Level 108H, Carbon Dioxide Level 17L, Anion Gap 14, Blood Urea Nitrogen 65H, Creatinine 4.2H, Estimat Glomerular Filtration Rate 14.7, Glucose Level 160H, Uric Acid 7.6H, Calcium Level 8.1L, Phosphorus Level 2.7, Magnesium Level 1.7L, Total Bilirubin 0.5, Aspartate Amino Transf (AST/SGOT) 27, Alanine Aminotransferase (ALT/SGPT) 15, Alkaline Phosphatase 51, Ammonia 18, Troponin I 0.103H, Pro-B-Type Natriuretic Peptide 9252H, Total Protein 5.5L, Albumin 2.1L, Globulin 3.4, Albumin/Globulin Ratio 0.6L, Lipase 22L, Random Vancomycin Level 17.9, Phenytoin (Dilantin) Level 13.0 04/30/18 09:20: Arterial Blood pH 7.343L, Arterial Blood Partial Pressure CO2 29.1L, Arterial Blood Partial Pressure O2 83.2, Arterial Blood HCO3 15.5*L, Arterial Blood Oxygen Saturation 95.3, Arterial Blood Base Excess -9.3*L, Aaron Test Positive Height (Feet): 5 Height (Inches): 10.00 Weight (Pounds): 163 EENT: other - vented Cardiovascular: tachycardia Respiratory/Chest: decreased breath sounds Abdomen: distended Deon Rojas MD Apr 30, 2018 17:13
--- NOTE | 2018-04-30 18:00 | NUR ---
NURSE NOTES: VSS. No distress noted. Will continue plan of care.
--- NOTE | 2018-04-30 18:22 | General Progress Note ---
Assessment/Plan Assessment/Plan Assessment and Recs: # Anemia of chronic disease due to underlying chronic medical issues, multifactorial --> in addition due to KELLY, have started iron on 04/30 --> Anemia workup has been reviewed, ferritin 373 --> No evidence of hemolysis is noted, peripheral smear has been reviewed. --> Hgb goal >7. Transfuse prn. --> Given 2 units prbc on 04/25/18, had a reaction, transfusion reaction ordered --> Medications have been reviewed --> gi recs appreciated # Anemia due to alcohol withdrawal/myelosuppresion --> Monitor for withdrawal symptoms --> thimaine, folic acid, ivf, ativan prn ordered # Leukocytosis/Elevated white blood cell count, unspecified likely related to underlying stress reaction, smoking, or underlying infection (especially if bandemia is noted) --> have reviewed peripheral smear and bandemia/neutrophilia noted --> continue antibiotics if they have been started by ID team --> monitor for resolution --> WBC trend: 16-->15-->18 # Thrombocutopenia due to etoh abise --> trend 114k # Alcohol abuse --> rec cessation # Epileptic seizure, generalized --> as per neuro # Intubated in ICU # Drug abuse # transfse to higher level of care The timing of this note does not necessarily reflect the time of the patient was seen. Greatly appreciate consultation! Subjective Constitutional: Denies: no symptoms, chills, diaphoresis, fever, malaise, weakness, other HEENT: Denies: no symptoms, eye pain, blurred vision, tearing, double vision, ear pain, ear discharge, nose pain, nose congestion, throat pain, throat swelling, mouth pain, mouth swelling, other Cardiovascular: Denies: no symptoms, chest pain, edema, irregular heart rate, lightheadedness, palpitations, syncope, other Respiratory: Denies: no symptoms, cough, orthopnea, shortness of breath, SOB with excertion, SOB at rest, sputum, stridor, wheezing, other Genitourinary: Denies: no symptoms, burning, discharge, frequency, flank pain, hematuria, incontinence, pain, urgency, other Neurologic/Psychiatric: Denies: no symptoms, anxiety, depressed, emotional problems, headache, numbness, paresthesia, pre-existing deficit, seizure, tingling, tremors, weakness, other Allergies: Coded Allergies: No Known Allergies (Unverified , 04/24/18) Subjective 04/26: awake, comfortable, no acute distress. 04/27: Pt was transferred to ICU, intubated, wbc 16 04/29: seen by bedside, comfortable, wbc 15 04/30: started on iv iron, no fev, chills noted Objective Last 24 Hour Vital Signs Date Time Temp Pulse Resp B/P (MAP) Pulse Ox O2 Delivery O2 Flow Rate FiO2 04/30/18 18:00 95 41 115/62 (79) 98 04/30/18 17:22 94 41 90 04/30/18 17:00 99 40 118/65 (82) 98 04/30/18 16:30 94 40 112/62 (79) 98 04/30/18 16:00 Mechanical Ventilator 04/30/18 16:00 99.0 96 40 116/66 (83) 98 04/30/18 16:00 94 04/30/18 16:00 90 04/30/18 15:30 99 40 118/66 (83) 98 04/30/18 15:24 96 41 90 04/30/18 15:00 95 40 116/65 (82) 98 04/30/18 14:30 98 40 118/66 (83) 98 04/30/18 14:00 95 40 111/65 (80) 98 04/30/18 13:30 98 40 104/60 (75) 98 04/30/18 13:21 94 43 100 Mechanical Ventilator 90 04/30/18 13:20 94 42 90 04/30/18 13:14 94 44 97 Mechanical Ventilator 90 04/30/18 13:00 95 40 108/62 (77) 98 04/30/18 12:30 97 40 114/60 (78) 99 04/30/18 12:00 90 04/30/18 12:00 97 04/30/18 12:00 Mechanical Ventilator 04/30/18 12:00 99.1 99 40 115/68 (84) 98 04/30/18 11:30 97 40 105/64 (78) 98 04/30/18 11:24 95 44 90 04/30/18 11:00 98 40 108/60 (76) 98 04/30/18 10:30 101 40 102/62 (75) 98 04/30/18 10:00 100 40 108/60 (76) 98 04/30/18 09:30 98 40 105/62 (76) 98 04/30/18 09:26 100 41 90 04/30/18 09:00 98.9 94 40 110/58 (75) 99 04/30/18 08:30 98 40 106/64 (78) 98 04/30/18 08:00 100 40 108/60 (76) 98 04/30/18 08:00 Mechanical Ventilator 04/30/18 08:00 90 04/30/18 08:00 98 04/30/18 07:45 122/58 04/30/18 07:30 101 40 114/62 (79) 99 04/30/18 07:24 96 37 100 Mechanical Ventilator 90 04/30/18 07:22 96 39 90 04/30/18 07:14 97 39 100 Mechanical Ventilator 90 04/30/18 07:00 96 40 104/70 (81) 99 04/30/18 06:00 96 42 120/57 (78) 96 04/30/18 05:30 96 42 117/65 (82) 96 04/30/18 05:24 97 41 90 04/30/18 05:00 96 40 129/56 (80) 98 04/30/18 04:30 93 41 113/63 (80) 99 04/30/18 04:00 95 04/30/18 04:00 90 04/30/18 04:00 98.6 95 41 87/49 (62) 99 04/30/18 04:00 Mechanical Ventilator 04/30/18 03:30 96 41 115/67 (83) 99 04/30/18 03:20 97 39 90 04/30/18 03:00 98 40 104/54 (71) 99 04/30/18 02:30 98 40 104/54 (71) 99 04/30/18 02:00 99 40 108/59 (75) 97 04/30/18 01:30 101 41 131/68 (89) 96 04/30/18 01:25 100 39 100 Mechanical Ventilator 90 04/30/18 01:13 99 40 95 Mechanical Ventilator 90 04/30/18 01:13 99 40 90 04/30/18 01:00 98 39 120/54 (76) 96 04/30/18 01:00 125/56 3/18/19 00:30 98 39 126/54 (78) 96 04/30/18 00:00 98 04/30/18 00:00 98.2 98 39 112/55 (74) 96 04/30/18 00:00 112/55 04/30/18 00:00 Mechanical Ventilator 04/30/18 00:00 90 04/30/18 00:00 105 04/29/18 23:30 98 39 122/59 (80) 96 04/29/18 23:28 97 40 90 04/29/18 23:00 126/68 04/29/18 23:00 97 39 126/68 (87) 95 04/29/18 22:30 95 38 97/60 (72) 94 04/29/18 22:00 99/63 04/29/18 22:00 96 38 99/63 (75) 98 04/29/18 21:26 97 39 90 04/29/18 21:00 104/64 04/29/18 21:00 100 38 104/64 (77) 98 04/29/18 20:30 100 39 117/61 (79) 98 04/29/18 20:04 99 38 100 Mechanical Ventilator 90 04/29/18 20:00 Mechanical Ventilator 04/29/18 20:00 90 04/29/18 20:00 100 04/29/18 20:00 115/60 04/29/18 20:00 98.0 100 39 115/60 (78) 98 04/29/18 19:55 97 40 90 04/29/18 19:55 97 40 97 Mechanical Ventilator 90 04/29/18 19:00 98 38 111/56 (74) 97 04/29/18 18:30 100 39 123/60 (81) 96 Intake and Output 04/29/18 04/30/18 19:00 07:00 Intake Total 2662.84 ml 1516.09 ml Output Total 85 ml 470 ml Balance 2577.84 ml 1046.09 ml IV Total 2662.84 ml 1516.09 ml Output Urine Total 85 ml 470 ml Laboratory Tests 04/30/18 04:30: White Blood Count 18.4H, Red Blood Count 2.10L, Hemoglobin 6.6*L, Hematocrit 19.7L, Mean Corpuscular Volume 94, Mean Corpuscular Hemoglobin 31.6H, Mean Corpuscular Hemoglobin Concent 33.8, Red Cell Distribution Width 12.4, Platelet Count 114L, Mean Platelet Volume 7.0, Neutrophils (%) (Auto) , Lymphocytes (%) ( Auto) , Monocytes (%) (Auto) , Eosinophils (%) (Auto) , Basophils (%) (Auto) , Differential Total Cells Counted 100, Neutrophils % (Manual) 97H, Lymphocytes % (Manual) 2L, Monocytes % (Manual) 1, Eosinophils % (Manual) 0, Basophils % ( Manual) 0, Band Neutrophils 0, Platelet Estimate DecreasedL, Platelet Morphology Normal, [place] Cells Occasional, Sodium Level 139, Potassium Level 3.2L , Chloride Level 108H, Carbon Dioxide Level 17L, Anion Gap 14, Blood Urea Nitrogen 65H, Creatinine 4.2H, Estimat Glomerular Filtration Rate 14.7, Glucose Level 160H, Uric Acid 7.6H, Calcium Level 8.1L, Phosphorus Level 2.7, Magnesium Level 1.7L, Total Bilirubin 0.5, Aspartate Amino Transf (AST/SGOT) 27, Alanine Aminotransferase (ALT/SGPT) 15, Alkaline Phosphatase 51, Ammonia 18, Troponin I 0.103H, Pro-B-Type Natriuretic Peptide 9252H, Total Protein 5.5L, Albumin 2.1L, Globulin 3.4, Albumin/Globulin Ratio 0.6L, Lipase 22L, Random Vancomycin Level 17.9, Phenytoin (Dilantin) Level 13.0 04/30/18 09:20: Arterial Blood pH 7.343L, Arterial Blood Partial Pressure CO2 29.1L, Arterial Blood Partial Pressure O2 83.2, Arterial Blood HCO3 15.5*L, Arterial Blood Oxygen Saturation 95.3, Arterial Blood Base Excess -9.3*L, Aaron Test Positive Height (Feet): 5 Height (Inches): 10.00 Weight (Pounds): 163 General Appearance: no apparent distress Objective PE: General Appearance: well appearing, no apparent distress, alert Head: normocephalic EENT: PERRL/EOMI, normal ENT inspection Neck: supple Respiratory: normal breath sounds, no respiratory distress, intubated++ Cardiovascular: normal rate Gastrointestinal: normal inspection, non tender, soft, normal bowel sounds, non -distended Rectal: deferred Genitourinary: deferred Musculoskeletal: normal inspection, back normal Mirza Greenfield MD Apr 30, 2018 18:22
--- NOTE | 2018-04-30 19:20 | NUR ---
HAND-OFF: Report given to SHARLA Gusamn using SBAR. VSS. No distress noted. Addendum: 04/30/18 at 1923 by JACKELYN KERN RN HAND-OFF: Report given to SHARLA Carnes using SBAR. VSS. No distress noted.
--- NOTE | 2018-04-30 19:25 | NUR ---
RESPIRATORY NOTE: PT. RECEIVED ON AC/VC 20, 600, 90%, +5. PT IS BEING VENTILATED VIA AN ETT SIZE 7.5 @ 23CM LIPLINE. ALARMS ON AND AUDIBLE. VENT CIRCUIT SECURE AND OUT OF THE WAY. PT. HAS AN INCREASED RR OF 35 TO 40 BPM. ALL OTHER VS ARE WNL. WILL CONTINUE TO MONITOR.
--- NOTE | 2018-04-30 19:30 | Consultation ---
DATE OF CONSULTATION: 04/30/2018 CARDIOLOGY CONSULTATION CONSULTING PHYSICIAN: Earl Moreno M.D. REFERRING PHYSICIAN: Abhi Griffin M.D. REASON FOR CONSULTATION: Hypotension and tachycardia. HISTORY OF PRESENT ILLNESS: The patient is a 58-year-old gentleman with history of diabetes, who has apparently not been taking his medication including insulin. The patient was admitted to the hospital on April 24 with new-onset seizures. The patient also has history of alcohol abuse and has been drinking every day. The patient was subsequently intubated and was brought to intensive care unit. The patient became hypotensive and currently is on Levophed. Cardiology consultation was obtained for further evaluation and management. History cannot be obtained as the patient is intubated in intensive care unit on the ventilator. PAST MEDICAL HISTORY: As mentioned above. FAMILY HISTORY: Not available. MEDICATIONS: Per reconciliation. PHYSICAL EXAMINATION: VITAL SIGNS: Blood pressure is 108/60, pulse 90, respirations 40, and temperature 98.9. HEAD AND NECK: Shows no jugular venous distention. He is orally intubated. LUNGS: Coarse rhonchi bilaterally. CARDIOVASCULAR: Shows regular S1 and S2 with no gallop or murmur. ABDOMEN: Soft. EXTREMITIES: 1+ pitting edema. LABORATORY AND DIAGNOSTIC DATA: His labs show white count 18.4, hemoglobin 6.6, hematocrit 19.7, and platelet count 114. Sodium 139, potassium 3.2, BUN 65, and creatinine 4.2. Glucose 160. INR is 1.1. His urine toxicology screen is positive for marijuana. ASSESSMENT AND PLAN: 1. Shock, likely combination of sepsis as well as hemorrhagic. 6.2. The patient is getting two units of blood transfusion. He is already on Levophed as well as broad spectrum IV antibiotic. His echocardiogram also showed ejection fraction of 60% to 65%. 2. Troponin elevation, likely due to septic shock and demand ischemia. We will repeat the cardiac enzymes. 3. Respiratory failure, on the ventilator, under management of Dr. Griffin, still on 90% FiO2. 4. Severe anemia, getting blood transfusion. Etiology is not clear. 5. Alcohol abuse. 6. Aspiration pneumonia. 7. History of non insulin-dependent diabetes. Further evaluation by Dr. Ocampo. Thank you very much for allowing me to participate in the care of this patient. Please do not hesitate to contact me for any questions regarding my evaluation. Earl Moreno M.D. DR: BRY JOB#: [id number] CC:
--- NOTE | 2018-04-30 19:30 | NUR ---
NURSE NOTES: Received patient in bed with eyes closed, Obtunded. Sinus rhythm on the monitor with HR 96. Orally intubated on AC 20, Vt 600, P5, fio2 90%. Right Nare NGT running Nepro @ 20cc/hr with 30 cc residual at this time. Right Femoral TLC running D5 1/2 NS with 10 KCL, Levophed running @ 2 mcg/min. Right wrist 22 G IV site hep lock at this time. Meade cath draining by gravity at this time. Bed in lowest positions, side rails upx3. patient noted to have high peak pressures at this time, sedation no due at this time. Will continue to monitor.
[2018-04-30] MEDS: Dyna-Hex 2% Top Sol 2oz TOPIC SCH (19:41)
--- NOTE | 2018-04-30 19:49 | NUR ---
NURSE NOTES: Spoke with MD Griffin about peak pressures 45-50. Order is to resume Versed gtt att his time. Will continue to monitor patient.
--- NOTE | 2018-04-30 20:00 | NUR ---
NURSE NOTES: Burt leach here at this time.
[2018-04-30] MEDS: Iron Sucrose 100 MG in NS 55 ML IV SCH (20:13)
--- NOTE | 2018-04-30 21:56 | General Progress Note ---
Assessment/Plan Problem List: (1) Anemia ICD Codes: D64.9 - Anemia, unspecified SNOMED: 124859083 (2) Alcohol abuse ICD Codes: F10.10 - Alcohol abuse, uncomplicated SNOMED: 26028618 (3) Epileptic seizure, generalized ICD Codes: G40.309 - Generalized idiopathic epilepsy and epileptic syndromes, not intractable, without status epilepticus SNOMED: 74762238 Status: unchanged Assessment/Plan on acyclovir as well to account for herpes simplex encephalopathy intubated resp failure he wants to transfer pt to [facility] for continious eeg monitering so i wrote transfer order to [facility] if cleared by dr velarde sepsis very poor pronosis sepsis Subjective Allergies: Coded Allergies: No Known Allergies (Unverified , 04/24/18) Objective Last 24 Hour Vital Signs Date Time Temp Pulse Resp B/P (MAP) Pulse Ox O2 Delivery O2 Flow Rate FiO2 04/30/18 20:30 98 38 106/50 (68) 100 04/30/18 20:00 98 38 114/53 (73) 100 04/30/18 20:00 90 04/30/18 20:00 102 04/30/18 20:00 Mechanical Ventilator 04/30/18 19:55 44 Mechanical Ventilator 90 04/30/18 19:30 99.5 96 36 124/60 (81) 100 04/30/18 19:00 94 40 112/65 (81) 98 04/30/18 19:00 92 38 118/58 (78) 100 04/30/18 18:00 95 41 115/62 (79) 98 04/30/18 17:22 94 41 90 04/30/18 17:00 99 40 118/65 (82) 98 04/30/18 16:30 94 40 112/62 (79) 98 04/30/18 16:00 Mechanical Ventilator 04/30/18 16:00 99.0 96 40 116/66 (83) 98 04/30/18 16:00 94 04/30/18 16:00 90 04/30/18 15:30 99 40 118/66 (83) 98 04/30/18 15:24 96 41 90 04/30/18 15:00 95 40 116/65 (82) 98 04/30/18 14:30 98 40 118/66 (83) 98 04/30/18 14:00 95 40 111/65 (80) 98 04/30/18 13:30 98 40 104/60 (75) 98 04/30/18 13:21 94 43 100 Mechanical Ventilator 90 04/30/18 13:20 94 42 90 04/30/18 13:14 94 44 97 Mechanical Ventilator 90 04/30/18 13:00 95 40 108/62 (77) 98 04/30/18 12:30 97 40 114/60 (78) 99 04/30/18 12:00 90 04/30/18 12:00 97 04/30/18 12:00 Mechanical Ventilator 04/30/18 12:00 99.1 99 40 115/68 (84) 98 04/30/18 11:30 97 40 105/64 (78) 98 04/30/18 11:24 95 44 90 04/30/18 11:00 98 40 108/60 (76) 98 04/30/18 10:30 101 40 102/62 (75) 98 04/30/18 10:00 100 40 108/60 (76) 98 04/30/18 09:30 98 40 105/62 (76) 98 04/30/18 09:26 100 41 90 04/30/18 09:00 98.9 94 40 110/58 (75) 99 04/30/18 08:30 98 40 106/64 (78) 98 04/30/18 08:00 100 40 108/60 (76) 98 04/30/18 08:00 Mechanical Ventilator 04/30/18 08:00 90 04/30/18 08:00 98 04/30/18 07:45 122/58 04/30/18 07:30 101 40 114/62 (79) 99 04/30/18 07:24 96 37 100 Mechanical Ventilator 90 04/30/18 07:22 96 39 90 04/30/18 07:14 97 39 100 Mechanical Ventilator 90 04/30/18 07:00 96 40 104/70 (81) 99 04/30/18 06:00 96 42 120/57 (78) 96 04/30/18 05:30 96 42 117/65 (82) 96 04/30/18 05:24 97 41 90 04/30/18 05:00 96 40 129/56 (80) 98 04/30/18 04:30 93 41 113/63 (80) 99 04/30/18 04:00 95 3/18/19 04:00 90 04/30/18 04:00 98.6 95 41 87/49 (62) 99 04/30/18 04:00 Mechanical Ventilator 04/30/18 03:30 96 41 115/67 (83) 99 04/30/18 03:20 97 39 90 04/30/18 03:00 98 40 104/54 (71) 99 04/30/18 02:30 98 40 104/54 (71) 99 04/30/18 02:00 99 40 108/59 (75) 97 04/30/18 01:30 101 41 131/68 (89) 96 04/30/18 01:25 100 39 100 Mechanical Ventilator 90 04/30/18 01:13 99 40 95 Mechanical Ventilator 90 04/30/18 01:13 99 40 90 04/30/18 01:00 98 39 120/54 (76) 96 04/30/18 01:00 125/56 04/30/18 00:30 98 39 126/54 (78) 96 04/30/18 00:00 98 04/30/18 00:00 98.2 98 39 112/55 (74) 96 04/30/18 00:00 112/55 04/30/18 00:00 Mechanical Ventilator 04/30/18 00:00 90 04/30/18 00:00 105 04/29/18 23:30 98 39 122/59 (80) 96 04/29/18 23:28 97 40 90 04/29/18 23:00 126/68 04/29/18 23:00 97 39 126/68 (87) 95 04/29/18 22:30 95 38 97/60 (72) 94 04/29/18 22:00 99/63 04/29/18 22:00 96 38 99/63 (75) 98 Intake and Output 04/29/18 04/30/18 19:00 07:00 Intake Total 2662.84 ml 1516.09 ml Output Total 85 ml 470 ml Balance 2577.84 ml 1046.09 ml IV Total 2662.84 ml 1516.09 ml Output Urine Total 85 ml 470 ml Laboratory Tests 04/30/18 04:30: White Blood Count 18.4H, Red Blood Count 2.10L, Hemoglobin 6.6*L, Hematocrit 19.7L, Mean Corpuscular Volume 94, Mean Corpuscular Hemoglobin 31.6H, Mean Corpuscular Hemoglobin Concent 33.8, Red Cell Distribution Width 12.4, Platelet Count 114L, Mean Platelet Volume 7.0, Neutrophils (%) (Auto) , Lymphocytes (%) ( Auto) , Monocytes (%) (Auto) , Eosinophils (%) (Auto) , Basophils (%) (Auto) , Differential Total Cells Counted 100, Neutrophils % (Manual) 97H, Lymphocytes % (Manual) 2L, Monocytes % (Manual) 1, Eosinophils % (Manual) 0, Basophils % ( Manual) 0, Band Neutrophils 0, Platelet Estimate DecreasedL, Platelet Morphology Normal, [place] Cells Occasional, Sodium Level 139, Potassium Level 3.2L , Chloride Level 108H, Carbon Dioxide Level 17L, Anion Gap 14, Blood Urea Nitrogen 65H, Creatinine 4.2H, Estimat Glomerular Filtration Rate 14.7, Glucose Level 160H, Uric Acid 7.6H, Calcium Level 8.1L, Phosphorus Level 2.7, Magnesium Level 1.7L, Total Bilirubin 0.5, Aspartate Amino Transf (AST/SGOT) 27, Alanine Aminotransferase (ALT/SGPT) 15, Alkaline Phosphatase 51, Ammonia 18, Troponin I 0.103H, Pro-B-Type Natriuretic Peptide 9252H, Total Protein 5.5L, Albumin 2.1L, Globulin 3.4, Albumin/Globulin Ratio 0.6L, Lipase 22L, Random Vancomycin Level 17.9, Phenytoin (Dilantin) Level 13.0 04/30/18 09:20: Arterial Blood pH 7.343L, Arterial Blood Partial Pressure CO2 29.1L, Arterial Blood Partial Pressure O2 83.2, Arterial Blood HCO3 15.5*L, Arterial Blood Oxygen Saturation 95.3, Arterial Blood Base Excess -9.3*L, Aaron Test Positive Height (Feet): 5 Height (Inches): 10.00 Weight (Pounds): 163 General Appearance: lethargic, confused Respiratory/Chest: rhonchi - bilaterally Farhan Joaquin MD Apr 30, 2018 21:56
--- NOTE | 2018-04-30 22:14 | NUR ---
NURSE NOTES: EEG finished at this time. Patient continues comatose at this time. EEG finding no change from yesterday. Turned and repositioned at this time. Will continue to monitor.
--- NOTE | 2018-04-30 22:37 | NUR ---
NURSE NOTES: Feeding held at this time for residual 100cc. 2 mg ativan given for agitation. patient noted to have Respiratory rate of 40. Will continue to monitor
--- NOTE | 2018-04-30 23:30 | Progress Note ---
DATE: 04/30/2018 SUBJECTIVE: The patient is still in the ICU with deteriorating pulmonary function. Yesterday, his EEG showed burst suppression and I turned off his Versed. There has been no change. The patient is still in the coma. His hemoglobin is now down to 6.6 and his white count is going up at 18,400. His last blood gas on the ventilator today revealed a pO2 of 83.2 with a pH of 7.343. His pCO2 was 29.1. His base excess was -9.3. Oxygen saturation was 95.3, however, his chest x-ray is worse. See the report. PHYSICAL EXAMINATION: VITAL SIGNS: Pulse is 97 and regular, respiration rate is 44, he is overdriving the vent, and blood pressure is 114/53. LUNGS: He has bilateral rhonchi noted. NEUROLOGIC: Mental status, he is comatose and moves his right arm slightly to deep pain. CRANIAL NERVE II: No reaction to threat. CRANIAL NERVES III, IV, AND : The eyes in the midline. Very little eye movement. Pupils are about 4 mm and little to no reaction. CRANIAL NERVE V: Corneal sensation, partially intact, but decreased from my previous initial examination. CRANIAL NERVE VII: Reveals no change. CRANIAL NERVES IX AND X: There is no gag. Rest of the cranial nerves could not be examined. MUSCLE EXAMINATION: He is flaccid essentially quadriparetic with some minimal movement of the right arm to deep pain. There is no other movements to deep pain on the left side or in both legs. Reflexes are 0 in the upper and lower extremities with mute toes and testing for Babinski response. SENSORY: See above. IMPRESSION: The patient does not have a bed at [facility] and cannot be transferred. I am going to obtain another EEG tomorrow and probably, he will be out of nonconvulsive status epilepticus. The patient can continue his Keppra and his Dilantin. PLAN: As above. James Caicedo MD DR: YAHAIRA JOB#: [id number] CC:
[2018-05-01] VITALS (64 sets, daily range): BP systolic 70–149; BP diastolic 33–70
--- NOTE | 2018-05-01 | NUR ---
NURSE NOTES: BS 206, coverage given as per eMAR. Current temp 100.4 axillary. Tylenol given. residual noted to be 30cc. Will continue to monitor.
[2018-05-01] MEDS: Piperacillin/Tazobactam 3.375 GM in NS 110 ML IVPB SCH ×2 (00:11→12:33)
[2018-05-01] MEDS: NovoLOG Insulin Flexpen SUBQ SCH ×6 (00:12→21:01)
[2018-05-01] MEDS: Albuterol/Ipratropium 3ml neb HHN SCH ×4 (00:50→19:02)
--- NOTE | 2018-05-01 02:00 | NUR ---
NURSE NOTES: Patient turned and repositioned at this time. Continues to be on versed @ 1mg/hr, Levophed continues @ 2mcg/min. Will continue to monitor
[2018-05-01] MEDS: LORazepam Inj 2mg/ml 1ml IV PRN (03:38)
--- NOTE | 2018-05-01 04:00 | NUR ---
NURSE NOTES: Morning care provided. Turned and repositioned at this time. CHG bath done. Ativan previously given, patient noted to have respiratory rate 40. Will continue to monitor
--- NOTE | 2018-05-01 04:14 | NUR ---
RESPIRATORY NOTE: ANCHOR FAST CHANGED. NO SIGN OF SKIN BREAKDOWN OR FACIAL WOUNDS NOTED.
--- NOTE | 2018-05-01 05:00 | NUR ---
NURSE NOTES: BS 216 at this time. Coverage given as per Emar. Sinus rhythm on the monitor. Fio2 now 100% due to desaturation. Will continue to monitor
[2018-05-01 05:50] LABS: HEMATOCRIT 26.2 % (42.0-52.0); HEMOGLOBIN 8.6 G/DL (14.2-18.0); MEAN CORPUSCULAR VOLUME 95 FL (80-99); PLATELET COUNT 129 K/UL (150-450); RED BLOOD COUNT 2.74 M/UL (4.70-6.10); RED CELL DISTRIBUTION WIDTH 13.3 % (11.6-14.8); WHITE BLOOD COUNT 14.8 K/UL (4.8-10.8)
--- NOTE | 2018-05-01 06:26 | General Progress Note ---
Assessment/Plan Problem List: (1) Acute respiratory failure ICD Codes: J96.00 - Acute respiratory failure, unspecified whether with hypoxia or hypercapnia SNOMED: 66018102 (2) Diabetes ICD Codes: E11.9 - Type 2 diabetes mellitus without complications SNOMED: 25674151 (3) Diabetic nephropathy ICD Codes: E11.21 - Type 2 diabetes mellitus with diabetic nephropathy SNOMED: 370342773 (4) Renal failure (ARF), acute on chronic ICD Codes: N17.9 - Acute kidney failure, unspecified; N18.9 - Chronic kidney disease, unspecified SNOMED: 593916737 (5) Alcohol abuse ICD Codes: F10.10 - Alcohol abuse, uncomplicated SNOMED: 47391063 (6) Anemia ICD Codes: D64.9 - Anemia, unspecified SNOMED: 530953924 (7) Alcohol withdrawal ICD Codes: F10.239 - Alcohol dependence with withdrawal, unspecified SNOMED: 615520580 (8) Epileptic seizure, generalized ICD Codes: G40.309 - Generalized idiopathic epilepsy and epileptic syndromes, not intractable, without status epilepticus SNOMED: 28280026 Assessment/Plan continue Novolog sliding scale every 4 hours increase Levemir to 8 units bid Subjective ROS Limited/Unobtainable: Yes Allergies: Coded Allergies: No Known Allergies (Unverified , 04/24/18) Subjective events noted Item Value Date Time Bedside Blood Glucose 215 mg/dl H 05/01/18 0443 Bedside Blood Glucose 206 mg/dl H 05/01/18 0012 Bedside Blood Glucose 202 mg/dl H 04/30/182013 Bedside Blood Glucose 153 mg/dl H 04/30/18 1856 Bedside Blood Glucose 143 mg/dl H 04/30/18 1302 Bedside Blood Glucose 191 mg/dl H 04/30/18 0941 Glucose Level 160 MG/DL H 04/30/18 0430 Bedside Blood Glucose 167 mg/dl H 04/30/18 0450 Bedside Blood Glucose 241 mg/dl H 04/30/18 0122 Objective Last 24 Hour Vital Signs Date Time Temp Pulse Resp B/P (MAP) Pulse Ox O2 Delivery O2 Flow Rate FiO2 05/01/18 05:00 37 Mechanical Ventilator 100 05/01/18 05:00 90 40 102/53 (69) 97 05/01/18 04:54 90 40 100 05/01/18 04:30 91 40 97/47 (64) 97 05/01/18 04:14 91 40 100 05/01/18 04:00 99.8 91 40 99/52 (68) 99 05/01/18 04:00 Mechanical Ventilator 05/01/18 04:00 93 05/01/18 04:00 40 Mechanical Ventilator 100 05/01/18 04:00 100 05/01/18 03:30 94 40 99/47 (64) 93 05/01/18 03:00 40 Mechanical Ventilator 100 05/01/18 03:00 90 40 95/44 (61) 98 05/01/18 02:00 41 Mechanical Ventilator 90 05/01/18 02:00 92 40 97/49 (65) 98 05/01/18 01:30 99.9 94 40 94/50 (65) 98 05/01/18 01:00 97 42 110/56 (74) 99 05/01/18 01:00 40 Mechanical Ventilator 40 05/01/18 00:59 96 40 100 Mechanical Ventilator 90 05/01/18 00:51 99.9 05/01/18 00:50 97 42 97 Mechanical Ventilator 90 05/01/18 00:50 97 42 90 05/01/18 00:30 97 40 107/45 (65) 95 05/01/18 00:00 90 05/01/18 00:00 95 05/01/18 00:00 Mechanical Ventilator 05/01/18 00:00 100.4 97 40 96/50 (65) 95 05/01/18 00:00 38 Mechanical Ventilator 90 04/30/18 23:30 96 39 92/45 (61) 96 04/30/18 23:00 95 42 98/45 (62) 96 04/30/18 23:00 40 Mechanical Ventilator 90 04/30/18 22:59 95 39 90 04/30/18 22:30 98 42 113/53 (73) 96 04/30/18 22:00 97 40 97 04/30/18 22:00 40 Mechanical Ventilator 90 04/30/18 21:30 97 40 113/58 (76) 95 04/30/18 21:11 95 38 90 04/30/18 21:00 40 Mechanical Ventilator 90 04/30/18 21:00 95 40 102/55 (71) 100 04/30/18 20:30 98 38 106/50 (68) 100 04/30/18 20:00 98 38 114/53 (73) 100 04/30/18 20:00 90 04/30/18 20:00 45 Mechanical Ventilator 90 04/30/18 20:00 102 04/30/18 20:00 Mechanical Ventilator 04/30/18 19:55 44 Mechanical Ventilator 90 04/30/18 19:33 96 34 100 Mechanical Ventilator 90 04/30/18 19:30 99.5 96 36 124/60 (81) 100 04/30/18 19:25 92 38 100 Mechanical Ventilator 90 04/30/18 19:25 92 38 90 04/30/18 19:00 94 40 112/65 (81) 98 04/30/18 19:00 92 38 118/58 (78) 100 04/30/18 18:00 95 41 115/62 (79) 98 04/30/18 17:22 94 41 90 04/30/18 17:00 99 40 118/65 (82) 98 04/30/18 16:30 94 40 112/62 (79) 98 04/30/18 16:00 Mechanical Ventilator 04/30/18 16:00 99.0 96 40 116/66 (83) 98 18/19 16:00 94 18/19 16:00 90 04/30/18 15:30 99 40 118/66 (83) 98 04/30/19 15:24 96 41 90 04/30/18 15:00 95 40 116/65 (82) 98 04/30/19 14:30 98 40 118/66 (83) 98 04/30/ 14:00 95 40 111/65 (80) 98 04/30/19 13:30 98 40 104/60 (75) 98 18/19 13:21 94 43 100 Mechanical Ventilator 90 04/30/18 13:20 94 42 90 04/30/18 13:14 94 44 97 Mechanical Ventilator 90 04/30/18 13:00 95 40 108/62 (77) 98 04/30/18 12:30 97 40 114/60 (78) 99 18/19 12:00 90 04/30/18 12:00 97 04/30/18 12:00 Mechanical Ventilator 04/30/18 12:00 99.1 99 40 115/68 (84) 98 04/30/18 11:30 97 40 105/64 (78) 98 04/30/18 11:24 95 44 90 04/30/18 11:00 98 40 108/60 (76) 98 04/30/18 10:30 101 40 102/62 (75) 98 04/30/18 10:00 100 40 108/60 (76) 98 04/30/18 09:30 98 40 105/62 (76) 98 04/30/18 09:26 100 41 90 04/30/18 09:00 98.9 94 40 110/58 (75) 99 04/30/18 08:30 98 40 106/64 (78) 98 04/30/18 08:00 100 40 108/60 (76) 98 04/30/18 08:00 Mechanical Ventilator 04/30/18 08:00 90 04/30/18 08:00 98 04/30/18 07:45 122/58 04/30/18 07:30 101 40 114/62 (79) 99 04/30/18 07:24 96 37 100 Mechanical Ventilator 90 04/30/18 07:22 96 39 90 04/30/18 07:14 97 39 100 Mechanical Ventilator 90 04/30/18 07:00 96 40 104/70 (81) 99 Intake and Output 04/30/18 05/01/18 18:59 06:59 Intake Total 1152.43 ml 1516.32 ml Output Total 580 ml 320 ml Balance 572.43 ml 1196.32 ml IV Total 1062.43 ml 1286.32 ml Tube Feeding 90 ml 230 ml Output Urine Total 580 ml 320 ml Laboratory Tests 04/30/18 09:20: Arterial Blood pH 7.343L, Arterial Blood Partial Pressure CO2 29.1L, Arterial Blood Partial Pressure O2 83.2, Arterial Blood HCO3 15.5*L, Arterial Blood Oxygen Saturation 95.3, Arterial Blood Base Excess -9.3*L, Aaron Test Positive 05/01/18 04:30: White Blood Count [Pending], Red Blood Count [Pending], Hemoglobin [Pending], Hematocrit [Pending], Mean Corpuscular Volume [Pending], Mean Corpuscular Hemoglobin [Pending], Mean Corpuscular Hemoglobin Concent [Pending], Red Cell Distribution Width [Pending], Platelet Count [Pending], Mean Platelet Volume [ Pending], Neutrophils (%) (Auto) [Pending], Lymphocytes (%) (Auto) [Pending], Monocytes (%) (Auto) [Pending], Eosinophils (%) (Auto) [Pending], Basophils (%) (Auto) [Pending], Uric Acid [Pending], Phosphorus Level [Pending], Magnesium Level [Pending], Troponin I 0.088H, C-Reactive Protein, Quantitative [Pending], Pro-B-Type Natriuretic Peptide [Pending] Height (Feet): 5 Height (Inches): 10.00 Weight (Pounds): 163 General Appearance: severe distress Neck: normal alignment Cardiovascular: tachycardia Respiratory/Chest: decreased breath sounds Abdomen: normal bowel sounds Objective Current Medications Medications (Trade) Dose Ordered Sig/Bj Route PRN Reason Start Time Stop Time Status Last Admin Dose Admin Acetaminophen (Tylenol) 650 mg Q4H PRN ORAL Mild Pain/Temp > 100.5 04/27/18 21:30 05/27/18 21:29 05/01/18 00:21 Acetaminophen (Tylenol) 650 mg Q4H PRN RECTAL Mild Pain (Pain Scale 1-3) 04/27/18 21:30 05/27/18 21:29 04/28/18 14:39 Acyclovir 1000 mg/ Sodium Chloride 275 ml @ 275 mls/hr Q24HRS IV 04/29/18 09:00 05/29/18 08:59 04/30/18 09:32 Albuterol/ Ipratropium (Albuterol/ Ipratropium) 3 ml Q4H PRN HHN Shortness of Breath 04/27/18 21:45 05/02/18 17:44 Albuterol/ Ipratropium (Albuterol/ Ipratropium) 3 ml Q6HRT HHN 04/28/18 01:00 05/02/18 18:59 05/01/18 00:50 Allopurinol (Zyloprim) 200 mg DAILY NG 04/29/18 09:00 05/28/18 08:59 04/30/18 09:33 Chlorhexidine Gluconate (Lidia-Hex 2%) 1 applic DAILY@2000 TOPIC 04/28/18 20:00 05/28/18 19:59 04/30/18 19:41 Clonidine HCl (Catapres Tab) 0.1 mg Q4H PRN ORAL bp over 160 syst 04/27/18 21:30 05/26/18 21:29 Dextrose (Dextrose 50%) 25 ml Q30M PRN IV Hypoglycemia 04/29/18 07:30 05/29/18 07:29 Dextrose (Dextrose 50%) 50 ml Q30M PRN IV Hypoglycemia 04/29/18 07:30 05/29/18 07:29 Dextrose/ Electrolytes 1,000 ml @ 100 mls/hr Q10H IV 04/29/18 17:00 05/29/18 16:59 04/30/18 22:36 Gadobutrol (Gadavist) 7.5 mmol NOW PRN IV Radiology Procedure 04/28/18 08:00 05/02/18 03:35 Heparin Sodium (Porcine) (Heparin 5000 units/ml) 5,000 units EVERY 12 HOURS SUBQ 04/28/18 09:00 05/27/18 20:59 04/29/18 09:20 Insulin Aspart (NovoLOG) EVERY 4 HOURS SUBQ 04/29/18 09:00 05/29/18 08:59 05/01/18 04:43 Insulin Detemir (Levemir) 6 units BID SUBQ 04/29/18 09:00 05/29/18 08:59 04/30/18 18:56 Iron Sucrose 100 mg/Sodium Chloride 60 ml @ 240 mls/hr BEDTIME IV 04/30/18 21:00 05/04/18 21:14 04/30/18 20:13 Levetiracetam 250 mg/Sodium Chloride 112.5 ml @ 450 mls/hr Q12HR IV 04/27/18 22:00 05/27/18 21:59 04/30/18 20:52 Lorazepam (Ativan 2mg/ml 1ml) 1 mg Q2H PRN IV alcohol withdraw, seizure 04/27/18 21:15 05/02/18 11:07 Lorazepam (Ativan 2mg/ml 1ml) 2 mg Q4H PRN IV For Anxiety 04/30/18 09:45 05/07/18 09:44 05/01/18 03:38 Metoclopramide HCl (Reglan) 10 mg Q6H PRN IVP Nausea & Vomiting 04/27/18 21:30 05/27/18 21:29 Midazolam HCl 100 ml @ 2 mls/hr Q24H IVPB 04/28/18 16:15 05/05/18 16:14 04/30/18 19:55 Norepinephrine Bitartrate 8 mg/ Dextrose 508 ml @ 0 mls/hr Q24H IV 04/29/18 07:45 05/29/18 07:44 04/29/18 07:50 Ondansetron HCl (Zofran) 4 mg Q6H PRN IVP Nausea & Vomiting 04/27/18 21:30 05/27/18 21:29 Pantoprazole (Protonix) 40 mg EVERY 12 HOURS IVP 04/28/18 09:00 05/25/18 20:59 04/30/18 20:12 Phenytoin 300 mg/ Sodium Chloride 116 ml @ 120 mls/hr DAILY IVPB 04/28/18 09:00 05/28/18 08:59 04/30/18 09:32 Piperacillin Sod/ Tazobactam Sod 3.375 gm/Sodium Chloride 110 ml @ 27.5 mls/hr Q12H IVPB 04/29/18 00:00 05/06/18 00:00 05/01/18 00:11 Thiamine HCl 100 mg/Sodium Chloride 56 ml @ 112 mls/hr Q24H IVPB 04/29/18 15:00 05/29/18 14:59 04/30/18 15:59 Shoaib Ocampo MD May 01, 2018 06:26
[2018-05-01 06:31] LABS: ALANINE AMINOTRANSFERASE 17 U/L (12-78); ALBUMIN 1.9 G/DL (3.4-5.0); ALBUMIN/GLOBULIN RATIO 0.6 (1.0-2.7); ALKALINE PHOSPHATASE 59 U/L (46-116); ANION GAP 16 mmol/L (5-15); ASPARTATE AMINO TRANSFERASE 35 U/L (15-37); BILIRUBIN,TOTAL 0.9 MG/DL (0.2-1.0); BLOOD UREA NITROGEN 68 mg/dL (7-18); CARBON DIOXIDE 16 MMOL/L (21-32); CHLORIDE 108 MMOL/L (98-107); CREATININE 4.5 MG/DL (0.55-1.30); POTASSIUM 3.7 MMOL/L (3.5-5.1); SODIUM 140 MMOL/L (136-145)
[2018-05-01 06:35] LABS: PHOSPHORUS 2.7 MG/DL (2.5-4.9)
--- NOTE | 2018-05-01 07:23 | NUR ---
HAND-OFF: Report given to Emerson RN using SBAR. VS Stable. No signs of distress.
--- NOTE | 2018-05-01 07:40 | NUR ---
NURSE NOTES: Received the patient from [facility]. Patient in bed, comatose. Orally intubated, ETT size 7.5, 23cm at lip line. Settings: AV 20, TV 600, FIO2 100%, PEEP 5. SR noted on the monitor. Right nare NGT intact, running Nepro at 30ml/hr. Right femoral intact, running D51/2NS with 10meq KCl at 100ml/hr, Levophed at 2mcg/min, Versed at 1mg/hr. Right wrist 22G intact. Meade cath intact, draining yellow urine by gravity. Bed in lowest position, locked, side rails upx3, side rails padded. Call light within reach. Will continue to monitor.
[2018-05-01] MEDS: Allopurinol 100mg Tab NG SCH (08:27)
[2018-05-01] MEDS: Pantoprazole Inj IVP SCH ×2 (08:27→21:09)
[2018-05-01] MEDS: Levemir Flexpen SUBQ SCH ×2 (08:28→18:07)
[2018-05-01] MEDS: Heparin 5000 units/ml inj SUBQ SCH ×2 (08:30→20:43)
[2018-05-01] MEDS: D5 1/2NS w/KCL 10meq 1,000 ML IV SCH ×3 (08:31→15:05)
--- NOTE | 2018-05-01 08:57 | General Progress Note ---
Assessment/Plan Problem List: (1) Renal insufficiency ICD Codes: N28.9 - Disorder of kidney and ureter, unspecified SNOMED: 911267543, 819736807 (2) Marijuana abuse ICD Codes: F12.10 - Cannabis abuse, uncomplicated SNOMED: 02944782 (3) Anemia ICD Codes: D64.9 - Anemia, unspecified SNOMED: 458872585 (4) Alcohol abuse ICD Codes: F10.10 - Alcohol abuse, uncomplicated SNOMED: 30532534 (5) Epileptic seizure, generalized ICD Codes: G40.309 - Generalized idiopathic epilepsy and epileptic syndromes, not intractable, without status epilepticus SNOMED: 21191013 (6) Diabetic nephropathy ICD Codes: E11.21 - Type 2 diabetes mellitus with diabetic nephropathy SNOMED: 419035794 Assessment/Plan monitor labs icu care fu pulm on NGTF pending possible transfer to [facility] Subjective ROS Limited/Unobtainable: No Allergies: Coded Allergies: No Known Allergies (Unverified , 04/24/18) Subjective intubated Objective Last 24 Hour Vital Signs Date Time Temp Pulse Resp B/P (MAP) Pulse Ox O2 Delivery O2 Flow Rate FiO2 05/01/18 07:55 92 40 100 Mechanical Ventilator 90 05/01/18 07:45 107/55 05/01/18 07:35 88 41 100 Mechanical Ventilator 100 05/01/18 07:32 86 39 100 05/01/18 07:00 86 40 98/46 (63) 100 05/01/18 06:00 87 40 98/54 (69) 100 05/01/18 05:30 88 40 98/51 (67) 100 05/01/18 05:00 37 Mechanical Ventilator 100 05/01/18 05:00 90 40 102/53 (69) 97 05/01/18 04:54 90 40 100 05/01/18 04:30 91 40 97/47 (64) 97 05/01/18 04:14 91 40 100 05/01/18 04:00 99.8 91 40 99/52 (68) 99 05/01/18 04:00 Mechanical Ventilator 05/01/18 04:00 93 05/01/18 04:00 40 Mechanical Ventilator 100 05/01/18 04:00 100 05/01/18 03:30 94 40 99/47 (64) 93 05/01/18 03:00 40 Mechanical Ventilator 100 05/01/18 03:00 90 40 95/44 (61) 98 05/01/18 02:00 41 Mechanical Ventilator 90 05/01/18 02:00 92 40 97/49 (65) 98 05/01/18 01:30 99.9 94 40 94/50 (65) 98 05/01/18 01:00 97 42 110/56 (74) 99 05/01/18 01:00 40 Mechanical Ventilator 40 05/01/18 00:59 96 40 100 Mechanical Ventilator 90 05/01/18 00:51 99.9 05/01/18 00:50 97 42 97 Mechanical Ventilator 90 05/01/18 00:50 97 42 90 05/01/18 00:30 97 40 107/45 (65) 95 05/01/18 00:00 90 05/01/18 00:00 95 05/01/18 00:00 Mechanical Ventilator 05/01/18 00:00 100.4 97 40 96/50 (65) 95 05/01/18 00:00 38 Mechanical Ventilator 90 05/01/18 00:00 97 40 96/50 (65) 95 04/30/18 23:30 96 39 92/45 (61) 96 04/30/18 23:00 95 42 98/45 (62) 96 04/30/18 23:00 40 Mechanical Ventilator 90 04/30/18 22:59 95 39 90 04/30/18 22:30 98 42 113/53 (73) 96 04/30/18 22:00 97 40 97 04/30/18 22:00 40 Mechanical Ventilator 90 04/30/18 21:30 97 40 113/58 (76) 95 04/30/18 21:11 95 38 90 04/30/18 21:00 40 Mechanical Ventilator 90 04/30/18 21:00 95 40 102/55 (71) 100 04/30/18 20:30 98 38 106/50 (68) 100 04/30/18 20:00 98 38 114/53 (73) 100 04/30/18 20:00 90 04/30/18 20:00 45 Mechanical Ventilator 90 04/30/18 20:00 102 04/30/18 20:00 Mechanical Ventilator 04/30/18 19:55 44 Mechanical Ventilator 90 04/30/18 19:33 96 34 100 Mechanical Ventilator 90 04/30/18 19:30 99.5 96 36 124/60 (81) 100 18/19 19:25 92 38 100 Mechanical Ventilator 90 04/30/18 19:25 92 38 90 04/30/18 19:00 94 40 112/65 (81) 98 18/19 19:00 92 38 118/58 (78) 100 04/30/18 18:00 95 41 115/62 (79) 98 04/30/19 17:22 94 41 90 04/30/19 17:00 99 40 118/65 (82) 98 18/19 16:30 94 40 112/62 (79) 98 04/30/19 16:00 Mechanical Ventilator 04/30/18 16:00 99.0 96 40 116/66 (83) 98 04/30/18 16:00 94 04/30/ 16:00 90 04/30/ 15:30 99 40 118/66 (83) 98 18/19 15:24 96 41 90 04/30/18 15:00 95 40 116/65 (82) 98 04/30/ 14:30 98 40 118/66 (83) 98 04/30/19 14:00 95 40 111/65 (80) 98 04/30/ 13:30 98 40 104/60 (75) 98 04/30/18 13:21 94 43 100 Mechanical Ventilator 90 04/30/18 13:20 94 42 90 04/30/18 13:14 94 44 97 Mechanical Ventilator 90 04/30/18 13:00 95 40 108/62 (77) 98 04/30/18 12:30 97 40 114/60 (78) 99 04/30/18 12:00 90 04/30/18 12:00 97 19 12:00 Mechanical Ventilator 04/30/18 12:00 99.1 99 40 115/68 (84) 98 04/30/18 11:30 97 40 105/64 (78) 98 04/30/19 11:24 95 44 90 04/30/19 11:00 98 40 108/60 (76) 98 18/19 10:30 101 40 102/62 (75) 98 18/19 10:00 100 40 108/60 (76) 98 04/30/ 09:30 98 40 105/62 (76) 98 3/18/19 09:26 100 41 90 04/30/18 09:00 98.9 94 40 110/58 (75) 99 Intake and Output 04/30/18 05/01/18 18:59 06:59 Intake Total 1152.43 ml 1546.32 ml Output Total 580 ml 340 ml Balance 572.43 ml 1206.32 ml IV Total 1062.43 ml 1286.32 ml Tube Feeding 90 ml 260 ml Output Urine Total 580 ml 340 ml Laboratory Tests 04/30/18 09:20: Arterial Blood pH 7.343L, Arterial Blood Partial Pressure CO2 29.1L, Arterial Blood Partial Pressure O2 83.2, Arterial Blood HCO3 15.5*L, Arterial Blood Oxygen Saturation 95.3, Arterial Blood Base Excess -9.3*L, Aaron Test Positive 05/01/18 04:30: White Blood Count 14.8H, Red Blood Count 2.74L, Hemoglobin 8.6#L, Hematocrit 26.2#L, Mean Corpuscular Volume 95, Mean Corpuscular Hemoglobin 31.2H, Mean Corpuscular Hemoglobin Concent 32.7, Red Cell Distribution Width 13.3, Platelet Count 129L, Mean Platelet Volume 7.2, Neutrophils (%) (Auto) , Lymphocytes (%) ( Auto) , Monocytes (%) (Auto) , Eosinophils (%) (Auto) , Basophils (%) (Auto) , Neutrophils % (Manual) [Pending], Lymphocytes % (Manual) [Pending], Platelet Estimate [Pending], Platelet Morphology [Pending], Uric Acid 7.1, Phosphorus Level 2.7, Magnesium Level 1.6L, Troponin I 0.088H, C-Reactive Protein, Quantitative 20.6H, Pro-B-Type Natriuretic Peptide [id number] 05/01/18 05:00: Sodium Level 140, Potassium Level 3.7, Chloride Level 108H, Carbon Dioxide Level 16L, Anion Gap 16H, Blood Urea Nitrogen 68H, Creatinine 4.5H, Estimat Glomerular Filtration Rate 13.6, Glucose Level 223H, Calcium Level 8.0L, Total Bilirubin 0.9, Aspartate Amino Transf (AST/SGOT) 35, Alanine Aminotransferase ( ALT/SGPT) 17, Alkaline Phosphatase 59, Total Protein 4.9L, Albumin 1.9L, Globulin 3.0, Albumin/Globulin Ratio 0.6L Height (Feet): 5 Height (Inches): 10.00 Weight (Pounds): 163 General Appearance: lethargic EENT: normal ENT inspection Neck: supple Cardiovascular: tachycardia Respiratory/Chest: decreased breath sounds Abdomen: normal bowel sounds, non tender, soft Extremities: non-tender Tyler Jarrett MD May 01, 2018 08:57
[2018-05-01] MEDS: PHENYTOIN IVPB SCH (09:13)
[2018-05-01] MEDS: NS IVPB SCH (09:13)
[2018-05-01] MEDS: NS IV SCH ×2 (09:17→20:41)
[2018-05-01] MEDS: LEVETIRACETAM IV SCH ×2 (09:17→20:41)
[2018-05-01] MEDS: Acyclovir 1,000 MG in NS 275 ML IV SCH (09:18)
--- NOTE | 2018-05-01 10:00 | NUR ---
NURSE NOTES: Patient was turned and repositioned. No acute distress noted. FIO2 at 90%, O2 sat 100%.
--- NOTE | 2018-05-01 10:48 | Infectious Diseases Prog Note ---
Assessment/Plan Assessment/Plan antibiotics : zosyn, acyclovir A 1. aspiration pneumonia 2. leucocytosis improving 3. respiratory failure 4. seizures 5. renal failure worse 6. alcohol withdrawal P 1. continue zosyn, acyclovir 2. will follow up cultures Subjective ROS Limited/Unobtainable: Yes Allergies: Coded Allergies: No Known Allergies (Unverified , 04/24/18) Objective Vital Signs Last 24 Hour Vital Signs Date Time Temp Pulse Resp B/P (MAP) Pulse Ox O2 Delivery O2 Flow Rate FiO2 05/01/18 10:00 91 40 101/52 (68) 100 05/01/18 09:30 92 40 110/56 (74) 100 05/01/18 09:04 93 40 90 05/01/18 09:00 93 39 116/56 (76) 100 05/01/18 08:30 93 39 117/54 (75) 100 05/01/18 08:00 98.6 93 39 106/52 (70) 100 05/01/18 08:00 93 05/01/18 08:00 Mechanical Ventilator 05/01/18 08:00 100 05/01/18 07:55 92 40 100 Mechanical Ventilator 90 05/01/18 07:45 107/55 05/01/18 07:35 88 41 100 Mechanical Ventilator 100 05/01/18 07:32 86 39 100 05/01/18 07:30 86 37 108/55 (72) 100 05/01/18 07:00 86 40 98/46 (63) 100 05/01/18 06:00 87 40 98/54 (69) 100 05/01/18 05:30 88 40 98/51 (67) 100 05/01/18 05:00 37 Mechanical Ventilator 100 05/01/18 05:00 90 40 102/53 (69) 97 05/01/18 04:54 90 40 100 05/01/18 04:30 91 40 97/47 (64) 97 05/01/18 04:14 91 40 100 05/01/18 04:00 99.8 91 40 99/52 (68) 99 05/01/18 04:00 Mechanical Ventilator 05/01/18 04:00 93 05/01/18 04:00 40 Mechanical Ventilator 100 05/01/18 04:00 100 05/01/18 03:30 94 40 99/47 (64) 93 05/01/18 03:00 40 Mechanical Ventilator 100 05/01/18 03:00 90 40 95/44 (61) 98 05/01/18 02:00 41 Mechanical Ventilator 90 05/01/18 02:00 92 40 97/49 (65) 98 05/01/18 01:30 99.9 94 40 94/50 (65) 98 05/01/18 01:00 97 42 110/56 (74) 99 05/01/18 01:00 40 Mechanical Ventilator 40 05/01/18 00:59 96 40 100 Mechanical Ventilator 90 05/01/18 00:51 99.9 05/01/18 00:50 97 42 97 Mechanical Ventilator 90 05/01/18 00:50 97 42 90 05/01/18 00:30 97 40 107/45 (65) 95 05/01/18 00:00 90 05/01/18 00:00 95 05/01/18 00:00 Mechanical Ventilator 05/01/18 00:00 100.4 97 40 96/50 (65) 95 05/01/18 00:00 38 Mechanical Ventilator 90 05/01/18 00:00 97 40 96/50 (65) 95 04/30/18 23:30 96 39 92/45 (61) 96 04/30/18 23:00 95 42 98/45 (62) 96 04/30/18 23:00 40 Mechanical Ventilator 90 04/30/18 22:59 95 39 90 04/30/18 22:30 98 42 113/53 (73) 96 04/30/18 22:00 97 40 97 04/30/18 22:00 40 Mechanical Ventilator 90 04/30/18 21:30 97 40 113/58 (76) 95 04/30/18 21:11 95 38 90 04/30/18 21:00 40 Mechanical Ventilator 90 04/30/18 21:00 95 40 102/55 (71) 100 04/30/18 20:30 98 38 106/50 (68) 100 04/30/18 20:00 98 38 114/53 (73) 100 04/30/18 20:00 90 04/30/18 20:00 45 Mechanical Ventilator 90 04/30/18 20:00 102 04/30/18 20:00 Mechanical Ventilator 04/30/18 19:55 44 Mechanical Ventilator 90 3/18/19 19:33 96 34 100 Mechanical Ventilator 90 04/30/18 19:30 99.5 96 36 124/60 (81) 100 04/30/18 19:25 92 38 100 Mechanical Ventilator 90 04/30/18 19:25 92 38 90 04/30/18 19:00 94 40 112/65 (81) 98 04/30/18 19:00 92 38 118/58 (78) 100 04/30/18 18:00 95 41 115/62 (79) 98 04/30/18 17:22 94 41 90 04/30/18 17:00 99 40 118/65 (82) 98 04/30/18 16:30 94 40 112/62 (79) 98 04/30/18 16:00 Mechanical Ventilator 04/30/18 16:00 99.0 96 40 116/66 (83) 98 04/30/18 16:00 94 04/30/18 16:00 90 04/30/18 15:30 99 40 118/66 (83) 98 04/30/18 15:24 96 41 90 04/30/18 15:00 95 40 116/65 (82) 98 04/30/18 14:30 98 40 118/66 (83) 98 04/30/18 14:00 95 40 111/65 (80) 98 04/30/18 13:30 98 40 104/60 (75) 98 04/30/18 13:21 94 43 100 Mechanical Ventilator 90 04/30/18 13:20 94 42 90 04/30/18 13:14 94 44 97 Mechanical Ventilator 90 04/30/18 13:00 95 40 108/62 (77) 98 04/30/18 12:30 97 40 114/60 (78) 99 04/30/18 12:00 90 04/30/18 12:00 97 04/30/18 12:00 Mechanical Ventilator 04/30/18 12:00 99.1 99 40 115/68 (84) 98 04/30/18 11:30 97 40 105/64 (78) 98 04/30/18 11:24 95 44 90 04/30/18 11:00 98 40 108/60 (76) 98 Height (Feet): 5 Height (Inches): 10.00 Weight (Pounds): 163 HEENT: other - intubated Respiratory/Chest: rhonchi - bilaterally Cardiovascular: normal rate, regular rhythm, no gallop/murmur Abdomen: soft, non tender Extremities: no edema Laboratory Tests Test 05/01/18 04:30 05/01/18 05:00 White Blood Count 14.8 K/UL (4.8-10.8) H Red Blood Count 2.74 M/UL (4.70-6.10) L Hemoglobin 8.6 G/DL (14.2-18.0) #L Hematocrit 26.2 % (42.0-52.0) #L Mean Corpuscular Volume 95 FL (80-99) Mean Corpuscular Hemoglobin 31.2 PG (27.0-31.0) H Mean Corpuscular Hemoglobin Concent 32.7 G/DL (32.0-36.0) Red Cell Distribution Width 13.3 % (11.6-14.8) Platelet Count 129 K/UL (150-450) L Mean Platelet Volume 7.2 FL (6.5-10.1) Neutrophils (%) (Auto) % (45.0-75.0) Lymphocytes (%) (Auto) % (20.0-45.0) Monocytes (%) (Auto) % (1.0-10.0) Eosinophils (%) (Auto) % (0.0-3.0) Basophils (%) (Auto) % (0.0-2.0) Neutrophils % (Manual) Pending Lymphocytes % (Manual) Pending Platelet Estimate Pending Platelet Morphology Pending Uric Acid 7.1 MG/DL (2.6-7.2) Phosphorus Level 2.7 MG/DL (2.5-4.9) Magnesium Level 1.6 MG/DL (1.8-2.4) L Troponin I 0.088 ng/mL (0.000-0.056) C-Reactive Protein, Quantitative 20.6 mg/dL (0.00-0.90) H Pro-B-Type Natriuretic Peptide 19114 pg/mL (0-125) H Sodium Level 140 MMOL/L (136-145) Potassium Level 3.7 MMOL/L (3.5-5.1) Chloride Level 108 MMOL/L (98-107) H Carbon Dioxide Level 16 MMOL/L (21-32) L Anion Gap 16 mmol/L (5-15) H Blood Urea Nitrogen 68 mg/dL (7-18) H Creatinine 4.5 MG/DL (0.55-1.30) H Estimat Glomerular Filtration Rate 13.6 mL/min (>60) Glucose Level 223 MG/DL (74-106) H Calcium Level 8.0 MG/DL (8.5-10.1) L Total Bilirubin 0.9 MG/DL (0.2-1.0) Aspartate Amino Transf (AST/SGOT) 35 U/L (15-37) Alanine Aminotransferase (ALT/SGPT) 17 U/L (12-78) Alkaline Phosphatase 59 U/L (46-116) Total Protein 4.9 G/DL (6.4-8.2) L Albumin 1.9 G/DL (3.4-5.0) L Globulin 3.0 g/dL Albumin/Globulin Ratio 0.6 (1.0-2.7) L Current Medications Medications (Trade) Dose Ordered Sig/Bj Route PRN Reason Start Time Stop Time Status Last Admin Dose Admin Acetaminophen (Tylenol) 650 mg Q4H PRN ORAL Mild Pain/Temp > 100.5 04/27/18 21:30 05/27/18 21:29 05/01/18 00:21 Acetaminophen (Tylenol) 650 mg Q4H PRN RECTAL Mild Pain (Pain Scale 1-3) 04/27/18 21:30 05/27/18 21:29 04/28/18 14:39 Acyclovir 1000 mg/ Sodium Chloride 275 ml @ 275 mls/hr Q24HRS IV 04/29/18 09:00 05/29/18 08:59 05/01/18 09:18 Albuterol/ Ipratropium (Albuterol/ Ipratropium) 3 ml Q4H PRN HHN Shortness of Breath 04/27/18 21:45 05/02/18 17:44 Albuterol/ Ipratropium (Albuterol/ Ipratropium) 3 ml Q6HRT HHN 04/28/18 01:00 05/02/18 18:59 05/01/18 07:35 Allopurinol (Zyloprim) 200 mg DAILY NG 04/29/18 09:00 05/28/18 08:59 05/01/18 08:27 Chlorhexidine Gluconate (Lidia-Hex 2%) 1 applic DAILY@1999 TOPIC 04/28/18 20:00 05/28/18 19:59 04/30/18 19:41 Clonidine HCl (Catapres Tab) 0.1 mg Q4H PRN ORAL bp over 160 syst 04/27/18 21:30 05/26/18 21:29 Dextrose (Dextrose 50%) 25 ml Q30M PRN IV Hypoglycemia 04/29/18 07:30 05/29/18 07:29 Dextrose (Dextrose 50%) 50 ml Q30M PRN IV Hypoglycemia 04/29/18 07:30 05/29/18 07:29 Dextrose/ Electrolytes 1,000 ml @ 100 mls/hr Q10H IV 04/29/18 17:00 05/29/18 16:59 04/30/18 22:36 Gadobutrol (Gadavist) 7.5 mmol NOW PRN IV Radiology Procedure 04/28/18 08:00 05/02/18 03:35 Heparin Sodium (Porcine) (Heparin 5000 units/ml) 5,000 units EVERY 12 HOURS SUBQ 04/28/18 09:00 05/27/18 20:59 04/29/18 09:20 Insulin Aspart (NovoLOG) EVERY 4 HOURS SUBQ 04/29/18 09:00 05/29/18 08:59 05/01/18 08:30 Insulin Detemir (Levemir) 8 units BID SUBQ 05/01/18 09:00 05/29/18 08:59 05/01/18 08:28 Iron Sucrose 100 mg/Sodium Chloride 60 ml @ 240 mls/hr BEDTIME IV 04/30/18 21:00 05/04/18 21:14 04/30/18 20:13 Levetiracetam 250 mg/Sodium Chloride 112.5 ml @ 450 mls/hr Q12HR IV 04/27/18 22:00 05/27/18 21:59 05/01/18 09:17 Lorazepam (Ativan 2mg/ml 1ml) 1 mg Q2H PRN IV alcohol withdraw, seizure 04/27/18 21:15 05/02/18 11:07 Lorazepam (Ativan 2mg/ml 1ml) 2 mg Q4H PRN IV For Anxiety 04/30/18 09:45 05/07/18 09:44 05/01/18 03:38 Metoclopramide HCl (Reglan) 10 mg Q6H PRN IVP Nausea & Vomiting 04/27/18 21:30 05/27/18 21:29 Midazolam HCl 100 ml @ 2 mls/hr Q24H IVPB 04/28/18 16:15 05/05/18 16:14 04/30/18 19:55 Norepinephrine Bitartrate 8 mg/ Dextrose 508 ml @ 0 mls/hr Q24H IV 04/29/18 07:45 05/29/18 07:44 04/29/18 07:50 Ondansetron HCl (Zofran) 4 mg Q6H PRN IVP Nausea & Vomiting 04/27/18 21:30 05/27/18 21:29 Pantoprazole (Protonix) 40 mg EVERY 12 HOURS IVP 04/28/18 09:00 05/25/18 20:59 05/01/18 08:27 Phenytoin 300 mg/ Sodium Chloride 116 ml @ 120 mls/hr DAILY IVPB 04/28/18 09:00 05/28/18 08:59 05/01/18 09:13 Piperacillin Sod/ Tazobactam Sod 3.375 gm/Sodium Chloride 110 ml @ 27.5 mls/hr Q12H IVPB 04/29/18 00:00 05/06/18 00:00 05/01/18 00:11 Thiamine HCl 100 mg/Sodium Chloride 56 ml @ 112 mls/hr Q24H IVPB 04/29/18 15:00 05/29/18 14:59 04/30/18 15:59 Jermaine Enrique MD May 01, 2018 10:48
--- NOTE | 2018-05-01 12:00 | NUR ---
NURSE NOTES: Oral care and moralez care performed. Patient comatose. On nepro at 30ml/hr via NGT. HOB elevated.
--- NOTE | 2018-05-01 14:00 | NUR ---
NURSE NOTES: Patient resting in bed, no changes in condition.
--- NOTE | 2018-05-01 15:01 | Cardiac Electrophysiology PN ---
Assessment/Plan Assessment/Plan 1. Shock, likely combination of sepsis as well as hemorrhagic shock 6.2. S/P two units of blood transfusion. On Levophed as well as broad spectrum IV antibiotic. EF 60% to 65%. 2. Troponin elevation, likely due to septic shock and demand ischemia. 3. Respiratory failure, on the ventilator, under management of Dr. Griffin, still on 70% FiO2. 4. Severe anemia, s/p blood transfusion. Etiology is not clear. 5. Alcohol abuse. 6. Aspiration pneumonia. 7. History of non insulin-dependent diabetes. Further evaluation by Dr. Ocampo. DIOGO RN and Dr Griffin Subjective Subjective Still on Levophed 2 mcg and in SR on the Vent.70% Objective Last 24 Hour Vital Signs Date Time Temp Pulse Resp B/P (MAP) Pulse Ox O2 Delivery O2 Flow Rate FiO2 05/01/18 14:00 93 41 102/51 (68) 98 05/01/18 13:30 93 41 104/49 (67) 97 05/01/18 13:20 93 41 96 Mechanical Ventilator 70 05/01/18 13:20 93 41 70 05/01/18 13:00 90 42 114/54 (74) 100 05/01/18 13:00 40 Mechanical Ventilator 70 05/01/18 12:55 89 41 99 Mechanical Ventilator 80 05/01/18 12:30 90 41 106/51 (69) 99 05/01/18 12:00 98.5 89 41 101/51 (68) 100 05/01/18 12:00 Mechanical Ventilator 05/01/18 12:00 40 Mechanical Ventilator 80 05/01/18 12:00 80 05/01/18 12:00 90 05/01/18 11:30 89 40 102/52 (69) 100 05/01/18 11:09 88 40 80 05/01/18 11:00 40 Mechanical Ventilator 80 05/01/18 11:00 89 40 102/56 (71) 100 05/01/18 10:30 90 41 96/51 (66) 100 05/01/18 10:00 91 40 101/52 (68) 100 05/01/18 10:00 40 Mechanical Ventilator 90 05/01/18 09:30 92 40 110/56 (74) 100 05/01/18 09:04 93 40 90 05/01/18 09:00 93 39 116/56 (76) 100 05/01/18 09:00 40 Mechanical Ventilator 90 05/01/18 08:30 93 39 117/54 (75) 100 05/01/18 08:00 98.6 93 39 106/52 (70) 100 05/01/18 08:00 93 05/01/18 08:00 Mechanical Ventilator 05/01/18 08:00 38 Mechanical Ventilator 100 05/01/18 08:00 100 05/01/18 07:55 92 40 100 Mechanical Ventilator 90 05/01/18 07:45 107/55 05/01/18 07:35 88 41 100 Mechanical Ventilator 100 05/01/18 07:32 86 39 100 05/01/18 07:30 86 37 108/55 (72) 100 05/01/18 07:00 40 Mechanical Ventilator 100 05/01/18 07:00 86 40 98/46 (63) 100 05/01/18 06:00 87 40 98/54 (69) 100 05/01/18 05:30 88 40 98/51 (67) 100 05/01/18 05:00 37 Mechanical Ventilator 100 05/01/18 05:00 90 40 102/53 (69) 97 05/01/18 04:54 90 40 100 05/01/18 04:30 91 40 97/47 (64) 97 05/01/18 04:14 91 40 100 05/01/18 04:00 99.8 91 40 99/52 (68) 99 05/01/18 04:00 Mechanical Ventilator 05/01/18 04:00 93 05/01/18 04:00 40 Mechanical Ventilator 100 05/01/18 04:00 100 05/01/18 03:30 94 40 99/47 (64) 93 05/01/18 03:00 40 Mechanical Ventilator 100 05/01/18 03:00 90 40 95/44 (61) 98 05/01/18 02:00 41 Mechanical Ventilator 90 05/01/18 02:00 92 40 97/49 (65) 98 05/01/18 01:30 99.9 94 40 94/50 (65) 98 05/01/18 01:00 97 42 110/56 (74) 99 05/01/18 01:00 40 Mechanical Ventilator 40 05/01/18 00:59 96 40 100 Mechanical Ventilator 90 05/01/18 00:51 99.9 05/01/18 00:50 97 42 97 Mechanical Ventilator 90 05/01/18 00:50 97 42 90 05/01/18 00:30 97 40 107/45 (65) 95 05/01/18 00:00 90 05/01/18 00:00 95 05/01/18 00:00 Mechanical Ventilator 05/01/18 00:00 100.4 97 40 96/50 (65) 95 05/01/18 00:00 38 Mechanical Ventilator 90 05/01/18 00:00 97 40 96/50 (65) 95 04/30/18 23:30 96 39 92/45 (61) 96 04/30/18 23:00 95 42 98/45 (62) 96 04/30/18 23:00 40 Mechanical Ventilator 90 04/30/18 22:59 95 39 90 04/30/18 22:30 98 42 113/53 (73) 96 04/30/18 22:00 97 40 97 04/30/18 22:00 40 Mechanical Ventilator 90 04/30/18 21:30 97 40 113/58 (76) 95 04/30/18 21:11 95 38 90 04/30/18 21:00 40 Mechanical Ventilator 90 04/30/18 21:00 95 40 102/55 (71) 100 04/30/18 20:30 98 38 106/50 (68) 100 04/30/18 20:00 98 38 114/53 (73) 100 04/30/18 20:00 90 04/30/18 20:00 45 Mechanical Ventilator 90 04/30/18 20:00 102 04/30/18 20:00 Mechanical Ventilator 04/30/18 19:55 44 Mechanical Ventilator 90 04/30/18 19:33 96 34 100 Mechanical Ventilator 90 04/30/18 19:30 99.5 96 36 124/60 (81) 100 04/30/18 19:25 92 38 100 Mechanical Ventilator 90 04/30/18 19:25 92 38 90 04/30/18 19:00 94 40 112/65 (81) 98 04/30/18 19:00 92 38 118/58 (78) 100 04/30/18 18:00 95 41 115/62 (79) 98 04/30/18 17:22 94 41 90 04/30/18 17:00 99 40 118/65 (82) 98 04/30/18 16:30 94 40 112/62 (79) 98 04/30/18 16:00 Mechanical Ventilator 04/30/18 16:00 99.0 96 40 116/66 (83) 98 04/30/18 16:00 94 04/30/18 16:00 90 04/30/18 15:30 99 40 118/66 (83) 98 04/30/18 15:24 96 41 90 04/30/18 15:00 95 40 116/65 (82) 98 Intake and Output 04/30/18 05/01/18 19:00 07:00 Intake Total 1168.62 ml 1558.32 ml Output Total 565 ml 325 ml Balance 603.62 ml 1233.32 ml IV Total 1058.62 ml 1288.32 ml Tube Feeding 110 ml 270 ml Output Urine Total 565 ml 325 ml Laboratory Tests Test 05/01/18 04:30 05/01/18 05:00 White Blood Count 14.8 K/UL (4.8-10.8) H Red Blood Count 2.74 M/UL (4.70-6.10) L Hemoglobin 8.6 G/DL (14.2-18.0) #L Hematocrit 26.2 % (42.0-52.0) #L Mean Corpuscular Volume 95 FL (80-99) Mean Corpuscular Hemoglobin 31.2 PG (27.0-31.0) H Mean Corpuscular Hemoglobin Concent 32.7 G/DL (32.0-36.0) Red Cell Distribution Width 13.3 % (11.6-14.8) Platelet Count 129 K/UL (150-450) L Mean Platelet Volume 7.2 FL (6.5-10.1) Neutrophils (%) (Auto) % (45.0-75.0) Lymphocytes (%) (Auto) % (20.0-45.0) Monocytes (%) (Auto) % (1.0-10.0) Eosinophils (%) (Auto) % (0.0-3.0) Basophils (%) (Auto) % (0.0-2.0) Differential Total Cells Counted 100 Neutrophils % (Manual) 89 % (45-75) H Lymphocytes % (Manual) 5 % (20-45) L Monocytes % (Manual) 6 % (1-10) Eosinophils % (Manual) 0 % (0-3) Basophils % (Manual) 0 % (0-2) Band Neutrophils 0 % (0-8) Platelet Estimate Decreased L Platelet Morphology Normal Rip Cells Occasional Uric Acid 7.1 MG/DL (2.6-7.2) Phosphorus Level 2.7 MG/DL (2.5-4.9) Magnesium Level 1.6 MG/DL (1.8-2.4) L Troponin I 0.088 ng/mL (0.000-0.056) C-Reactive Protein, Quantitative 20.6 mg/dL (0.00-0.90) H Pro-B-Type Natriuretic Peptide 48211 pg/mL (0-125) H Sodium Level 140 MMOL/L (136-145) Potassium Level 3.7 MMOL/L (3.5-5.1) Chloride Level 108 MMOL/L (98-107) H Carbon Dioxide Level 16 MMOL/L (21-32) L Anion Gap 16 mmol/L (5-15) H Blood Urea Nitrogen 68 mg/dL (7-18) H Creatinine 4.5 MG/DL (0.55-1.30) H Estimat Glomerular Filtration Rate 13.6 mL/min (>60) Glucose Level 223 MG/DL (74-106) H Calcium Level 8.0 MG/DL (8.5-10.1) L Total Bilirubin 0.9 MG/DL (0.2-1.0) Aspartate Amino Transf (AST/SGOT) 35 U/L (15-37) Alanine Aminotransferase (ALT/SGPT) 17 U/L (12-78) Alkaline Phosphatase 59 U/L (46-116) Total Protein 4.9 G/DL (6.4-8.2) L Albumin 1.9 G/DL (3.4-5.0) L Globulin 3.0 g/dL Albumin/Globulin Ratio 0.6 (1.0-2.7) L Objective HEAD AND NECK: Shows no jugular venous distention. He is orally intubated. LUNGS: Coarse rhonchi bilaterally. CARDIOVASCULAR: Shows regular S1 and S2 with no gallop or murmur. ABDOMEN: Soft. EXTREMITIES: 1+ pitting edema. Earl Moreno MD May 01, 2018 15:01
--- NOTE | 2018-05-01 15:19 | Pulmonolgy Critical Care Note ---
Critical Care - Asmt/Plan Problems: (1) ARDS (adult respiratory distress syndrome) (2) Aspiration pneumonia (3) Bilateral pneumonia (4) Hypoxemia (5) Renal failure (ARF), acute on chronic (6) Diabetic nephropathy (7) Epileptic seizure, generalized (8) Marijuana abuse (9) Alcohol abuse (10) Alcohol withdrawal (11) Anemia Assessment/Plan: -Continue ventilatory support/settings reviewed: TV dec 500, lung protective centilation -Versed gtt -Keppra/Dilantin, monitor EEG, F/U repeat CT brain and transfer to [facility] per neuro when able -Titrate NE to keep MAP > 60 -Abx (Zosyn) & Acyclovir per ID, F/U Cx's, may need bronch -RTC and PRN DUOnebs -TF's -Monitor BS, SQ insulin, F/U ENDO recs -mIVF, monitor volumes, F/U renal recs -MVI/thiamine/Folate -F/U GI and heme recs Re: anemia -DVT Px: Hep SQ -Keep in ICU, transfer to [facility] when able CCT 60 D/W family @ bedside D/W [employer] and RT D/W PMD and [facility] transfer center Respiratory: adjust tidal volume - Dec TV 500, monitor respiratory rate, adjust FIO2 - to keep SaO2 > 92%, CXR - monitor, ABG, other - HHN's, lung protective ventilation Cardiac: continue pressors - Titrtate NE to keep MAP > 60, continue to monitor HR/BP, other - F/U cardiac recs Renal: keep IV fluid - per renal, check electrolytes, other - F/U renal recs Infectious Disease: continue antibiotics - per ID: Zosyn & Acyclovir Gastrointestinal: continue feedings/current rate - NGT Endocrine: monitor blood sugar Hematologic: monitor H/H - w/u anemia per heme and GI Neurologic: keep patient comfortable - Monitor MS, F/U EEG, dilantin/keppra/ versed gtt per neuro, MVI/thiamine/Floate, possible transfer to [facility] for cEEG Prophylaxis: Protonix, Heparin, SCDs Disposition: keep in ICU Time Spent (Minutes): 60 Notes Reviewed: police chief, cardio, renal, ID, GI, neuro Discussed with: nurses, consultants Critical Care - Objective Last 24 Hour Vital Signs Date Time Temp Pulse Resp B/P (MAP) Pulse Ox O2 Delivery O2 Flow Rate FiO2 05/01/18 15:00 93 41 100/47 (64) 98 05/01/18 15:00 93 41 100/47 (64) 98 05/01/18 14:30 93 40 101/53 (69) 99 05/01/18 14:00 93 41 102/51 (68) 98 05/01/18 13:30 93 41 104/49 (67) 97 05/01/18 13:20 93 41 96 Mechanical Ventilator 70 05/01/18 13:20 93 41 70 05/01/18 13:00 90 42 114/54 (74) 100 05/01/18 13:00 40 Mechanical Ventilator 70 05/01/18 12:55 89 41 99 Mechanical Ventilator 80 05/01/18 12:30 90 41 106/51 (69) 99 05/01/18 12:00 98.5 89 41 101/51 (68) 100 05/01/18 12:00 Mechanical Ventilator 05/01/18 12:00 40 Mechanical Ventilator 80 05/01/18 12:00 80 05/01/18 12:00 90 05/01/18 11:30 89 40 102/52 (69) 100 05/01/18 11:09 88 40 80 05/01/18 11:00 40 Mechanical Ventilator 80 05/01/18 11:00 89 40 102/56 (71) 100 05/01/18 10:30 90 41 96/51 (66) 100 05/01/18 10:00 91 40 101/52 (68) 100 05/01/18 10:00 40 Mechanical Ventilator 90 05/01/18 09:30 92 40 110/56 (74) 100 05/01/18 09:04 93 40 90 05/01/18 09:00 93 39 116/56 (76) 100 05/01/18 09:00 40 Mechanical Ventilator 90 05/01/18 08:30 93 39 117/54 (75) 100 05/01/18 08:00 98.6 93 39 106/52 (70) 100 05/01/18 08:00 93 05/01/18 08:00 Mechanical Ventilator 05/01/18 08:00 38 Mechanical Ventilator 100 05/01/18 08:00 100 05/01/18 07:55 92 40 100 Mechanical Ventilator 90 05/01/18 07:45 107/55 05/01/18 07:35 88 41 100 Mechanical Ventilator 100 05/01/18 07:32 86 39 100 05/01/18 07:30 86 37 108/55 (72) 100 05/01/18 07:00 40 Mechanical Ventilator 100 05/01/18 07:00 86 40 98/46 (63) 100 05/01/18 06:00 87 40 98/54 (69) 100 05/01/18 05:30 88 40 98/51 (67) 100 05/01/18 05:00 37 Mechanical Ventilator 100 05/01/18 05:00 90 40 102/53 (69) 97 05/01/18 04:54 90 40 100 05/01/18 04:30 91 40 97/47 (64) 97 05/01/18 04:14 91 40 100 05/01/18 04:00 99.8 91 40 99/52 (68) 99 05/01/18 04:00 Mechanical Ventilator 05/01/18 04:00 93 05/01/18 04:00 40 Mechanical Ventilator 100 05/01/18 04:00 100 05/01/18 03:30 94 40 99/47 (64) 93 05/01/18 03:00 40 Mechanical Ventilator 100 05/01/18 03:00 90 40 95/44 (61) 98 05/01/18 02:00 41 Mechanical Ventilator 90 05/01/18 02:00 92 40 97/49 (65) 98 05/01/18 01:30 99.9 94 40 94/50 (65) 98 05/01/18 01:00 97 42 110/56 (74) 99 05/01/18 01:00 40 Mechanical Ventilator 40 05/01/18 00:59 96 40 100 Mechanical Ventilator 90 05/01/18 00:51 99.9 05/01/18 00:50 97 42 97 Mechanical Ventilator 90 05/01/18 00:50 97 42 90 05/01/18 00:30 97 40 107/45 (65) 95 05/01/18 00:00 90 05/01/18 00:00 95 05/01/18 00:00 Mechanical Ventilator 05/01/18 00:00 100.4 97 40 96/50 (65) 95 05/01/18 00:00 38 Mechanical Ventilator 90 05/01/18 00:00 97 40 96/50 (65) 95 04/30/18 23:30 96 39 92/45 (61) 96 04/30/18 23:00 95 42 98/45 (62) 96 04/30/18 23:00 40 Mechanical Ventilator 90 04/30/18 22:59 95 39 90 04/30/18 22:30 98 42 113/53 (73) 96 04/30/18 22:00 97 40 97 04/30/18 22:00 40 Mechanical Ventilator 90 04/30/18 21:30 97 40 113/58 (76) 95 04/30/18 21:11 95 38 90 04/30/18 21:00 40 Mechanical Ventilator 90 04/30/18 21:00 95 40 102/55 (71) 100 04/30/18 20:30 98 38 106/50 (68) 100 04/30/18 20:00 98 38 114/53 (73) 100 04/30/18 20:00 90 04/30/18 20:00 45 Mechanical Ventilator 90 04/30/18 20:00 102 04/30/18 20:00 Mechanical Ventilator 04/30/18 19:55 44 Mechanical Ventilator 90 04/30/18 19:33 96 34 100 Mechanical Ventilator 90 04/30/18 19:30 99.5 96 36 124/60 (81) 100 04/30/18 19:25 92 38 100 Mechanical Ventilator 90 04/30/18 19:25 92 38 90 04/30/18 19:00 94 40 112/65 (81) 98 1819 19:00 92 38 118/58 (78) 100 04/30/18 18:00 95 41 115/62 (79) 98 04/30/18 17:22 94 41 90 19 17:00 99 40 118/65 (82) 98 18/19 16:30 94 40 112/62 (79) 98 04/30/18 16:00 Mechanical Ventilator 04/30/18 16:00 99.0 96 40 116/66 (83) 98 18/19 16:00 94 3/18/19 16:00 90 1819 15:30 99 40 118/66 (83) 98 18/19 15:24 96 41 90 Status: obtunded, other - intubated Condition: critical HEENT: atraumatic, normocephalic Neck: full ROM Lungs: rhonchi Heart: HR/BP unstable Abdomen: soft, non-tender, active bowel sounds Extremities: no C/C/E Accucheck: 202 Blood Sugars: BS controlled Critical Care - Subjective ROS Limited/Unobtainable: Yes ICU Day: 5 Intubation Day: 5 Interval Events: S/P 2 U PRBC HH stable FiO2 70 PEEP 5 No Sz's Condition: critical IV Access: central - R fem TLC, placed 04/27 EKG Rhythm: Sinus Rhythm FI02: 70 Vent Support Breath Rate: 20 Vent Support Mode: AC Vent Tidal Volume: 600 Sputum Amount: Scant PEEP: 5.0 PIP: 34 Secretions: No Fluids: [id number]@100 Drips: NE 2, Versed 1 Tube Feeding Amount: 30 I&O: Intake and Output 04/30/18 05/01/18 19:00 07:00 Intake Total 1168.62 ml 1558.32 ml Output Total 565 ml 325 ml Balance 603.62 ml 1233.32 ml IV Total 1058.62 ml 1288.32 ml Tube Feeding 110 ml 270 ml Output Urine Total 565 ml 325 ml Subjective: KALI CXR: Worsening b infiltrates ET-Tube: 7.5 ET Position: 23 Labs: Laboratory Tests Test 05/01/18 04:30 05/01/18 05:00 White Blood Count 14.8 K/UL (4.8-10.8) H Red Blood Count 2.74 M/UL (4.70-6.10) L Hemoglobin 8.6 G/DL (14.2-18.0) #L Hematocrit 26.2 % (42.0-52.0) #L Mean Corpuscular Volume 95 FL (80-99) Mean Corpuscular Hemoglobin 31.2 PG (27.0-31.0) H Mean Corpuscular Hemoglobin Concent 32.7 G/DL (32.0-36.0) Red Cell Distribution Width 13.3 % (11.6-14.8) Platelet Count 129 K/UL (150-450) L Mean Platelet Volume 7.2 FL (6.5-10.1) Neutrophils (%) (Auto) % (45.0-75.0) Lymphocytes (%) (Auto) % (20.0-45.0) Monocytes (%) (Auto) % (1.0-10.0) Eosinophils (%) (Auto) % (0.0-3.0) Basophils (%) (Auto) % (0.0-2.0) Differential Total Cells Counted 100 Neutrophils % (Manual) 89 % (45-75) H Lymphocytes % (Manual) 5 % (20-45) L Monocytes % (Manual) 6 % (1-10) Eosinophils % (Manual) 0 % (0-3) Basophils % (Manual) 0 % (0-2) Band Neutrophils 0 % (0-8) Platelet Estimate Decreased L Platelet Morphology Normal Rip Cells Occasional Uric Acid 7.1 MG/DL (2.6-7.2) Phosphorus Level 2.7 MG/DL (2.5-4.9) Magnesium Level 1.6 MG/DL (1.8-2.4) L Troponin I 0.088 ng/mL (0.000-0.056) C-Reactive Protein, Quantitative 20.6 mg/dL (0.00-0.90) H Pro-B-Type Natriuretic Peptide 46319 pg/mL (0-125) H Sodium Level 140 MMOL/L (136-145) Potassium Level 3.7 MMOL/L (3.5-5.1) Chloride Level 108 MMOL/L (98-107) H Carbon Dioxide Level 16 MMOL/L (21-32) L Anion Gap 16 mmol/L (5-15) H Blood Urea Nitrogen 68 mg/dL (7-18) H Creatinine 4.5 MG/DL (0.55-1.30) H Estimat Glomerular Filtration Rate 13.6 mL/min (>60) Glucose Level 223 MG/DL (74-106) H Calcium Level 8.0 MG/DL (8.5-10.1) L Total Bilirubin 0.9 MG/DL (0.2-1.0) Aspartate Amino Transf (AST/SGOT) 35 U/L (15-37) Alanine Aminotransferase (ALT/SGPT) 17 U/L (12-78) Alkaline Phosphatase 59 U/L (46-116) Total Protein 4.9 G/DL (6.4-8.2) L Albumin 1.9 G/DL (3.4-5.0) L Globulin 3.0 g/dL Albumin/Globulin Ratio 0.6 (1.0-2.7) L Abhi Griffin MD May 01, 2018 15:19
--- NOTE | 2018-05-01 15:19 | Nephrology Progress Note ---
Assessment/Plan Problem List: (1) Renal failure (ARF), acute on chronic Assessment: urine out put picked up (2) Diabetic nephropathy (3) Epileptic seizure, generalized (4) Alcohol abuse (5) Anemia (6) Acute respiratory failure Assessment Renal failure- Acute on Chronic Cr rising Anemia HTN by History MJ abuse Etoh abuse DM / Proteinuria : Nephropathy Fever , etiology? Plan trail of albumin bolus Midodrine Nepro feeding Adjust Acyclovir dose per Neuro request avoid Nephrotoxics keep BP and BS in check AMIRA kidney noted 2D echo noted Urine studies pending fluid challenge as needed Allopurinol DC Flomax- Has moralez monitor renal parameters K and Phos and Mag as needed monitor Dilantin level Per orders Subjective ROS Limited/Unobtainable: Yes Objective Objective Last 24 Hour Vital Signs Date Time Temp Pulse Resp B/P (MAP) Pulse Ox O2 Delivery O2 Flow Rate FiO2 05/01/18 15:16 92 43 60 05/01/18 15:00 93 41 100/47 (64) 98 05/01/18 15:00 93 41 100/47 (64) 98 05/01/18 14:30 93 40 101/53 (69) 99 05/01/18 14:00 93 41 102/51 (68) 98 05/01/18 13:30 93 41 104/49 (67) 97 05/01/18 13:20 93 41 96 Mechanical Ventilator 70 05/01/18 13:20 93 41 70 05/01/18 13:00 90 42 114/54 (74) 100 05/01/18 13:00 40 Mechanical Ventilator 70 05/01/18 12:55 89 41 99 Mechanical Ventilator 80 05/01/18 12:30 90 41 106/51 (69) 99 05/01/18 12:00 98.5 89 41 101/51 (68) 100 05/01/18 12:00 Mechanical Ventilator 05/01/18 12:00 40 Mechanical Ventilator 80 05/01/18 12:00 80 05/01/18 12:00 90 05/01/18 11:30 89 40 102/52 (69) 100 05/01/18 11:09 88 40 80 05/01/18 11:00 40 Mechanical Ventilator 80 05/01/18 11:00 89 40 102/56 (71) 100 05/01/18 10:30 90 41 96/51 (66) 100 05/01/18 10:00 91 40 101/52 (68) 100 05/01/18 10:00 40 Mechanical Ventilator 90 05/01/18 09:30 92 40 110/56 (74) 100 05/01/18 09:04 93 40 90 05/01/18 09:00 93 39 116/56 (76) 100 05/01/18 09:00 40 Mechanical Ventilator 90 05/01/18 08:30 93 39 117/54 (75) 100 05/01/18 08:00 98.6 93 39 106/52 (70) 100 05/01/18 08:00 93 05/01/18 08:00 Mechanical Ventilator 05/01/18 08:00 38 Mechanical Ventilator 100 05/01/18 08:00 100 05/01/18 07:55 92 40 100 Mechanical Ventilator 90 05/01/18 07:45 107/55 05/01/18 07:35 88 41 100 Mechanical Ventilator 100 05/01/18 07:32 86 39 100 05/01/18 07:30 86 37 108/55 (72) 100 05/01/18 07:00 40 Mechanical Ventilator 100 05/01/18 07:00 86 40 98/46 (63) 100 05/01/18 06:00 87 40 98/54 (69) 100 05/01/18 05:30 88 40 98/51 (67) 100 05/01/18 05:00 37 Mechanical Ventilator 100 05/01/18 05:00 90 40 102/53 (69) 97 05/01/18 04:54 90 40 100 05/01/18 04:30 91 40 97/47 (64) 97 05/01/18 04:14 91 40 100 05/01/18 04:00 99.8 91 40 99/52 (68) 99 05/01/18 04:00 Mechanical Ventilator 05/01/18 04:00 93 05/01/18 04:00 40 Mechanical Ventilator 100 05/01/18 04:00 100 05/01/18 03:30 94 40 99/47 (64) 93 05/01/18 03:00 40 Mechanical Ventilator 100 05/01/18 03:00 90 40 95/44 (61) 98 05/01/18 02:00 41 Mechanical Ventilator 90 05/01/18 02:00 92 40 97/49 (65) 98 05/01/18 01:30 99.9 94 40 94/50 (65) 98 05/01/18 01:00 97 42 110/56 (74) 99 05/01/18 01:00 40 Mechanical Ventilator 40 05/01/18 00:59 96 40 100 Mechanical Ventilator 90 05/01/18 00:51 99.9 05/01/18 00:50 97 42 97 Mechanical Ventilator 90 05/01/18 00:50 97 42 90 05/01/18 00:30 97 40 107/45 (65) 95 05/01/18 00:00 90 05/01/18 00:00 95 05/01/18 00:00 Mechanical Ventilator 05/01/18 00:00 100.4 97 40 96/50 (65) 95 05/01/18 00:00 38 Mechanical Ventilator 90 05/01/18 00:00 97 40 96/50 (65) 95 04/30/18 23:30 96 39 92/45 (61) 96 04/30/18 23:00 95 42 98/45 (62) 96 04/30/18 23:00 40 Mechanical Ventilator 90 04/30/18 22:59 95 39 90 04/30/18 22:30 98 42 113/53 (73) 96 04/30/18 22:00 97 40 97 04/30/18 22:00 40 Mechanical Ventilator 90 04/30/18 21:30 97 40 113/58 (76) 95 04/30/18 21:11 95 38 90 04/30/18 21:00 40 Mechanical Ventilator 90 04/30/18 21:00 95 40 102/55 (71) 100 04/30/18 20:30 98 38 106/50 (68) 100 04/30/18 20:00 98 38 114/53 (73) 100 04/30/18 20:00 90 04/30/18 20:00 45 Mechanical Ventilator 90 04/30/18 20:00 102 04/30/18 20:00 Mechanical Ventilator 04/30/18 19:55 44 Mechanical Ventilator 90 04/30/18 19:33 96 34 100 Mechanical Ventilator 90 04/30/18 19:30 99.5 96 36 124/60 (81) 100 04/30/18 19:25 92 38 100 Mechanical Ventilator 90 04/30/18 19:25 92 38 90 04/30/18 19:00 94 40 112/65 (81) 98 04/30/18 19:00 92 38 118/58 (78) 100 04/30/18 18:00 95 41 115/62 (79) 98 04/30/18 17:22 94 41 90 04/30/18 17:00 99 40 118/65 (82) 98 04/30/18 16:30 94 40 112/62 (79) 98 04/30/18 16:00 Mechanical Ventilator 04/30/18 16:00 99.0 96 40 116/66 (83) 98 04/30/18 16:00 94 04/30/18 16:00 90 04/30/18 15:30 99 40 118/66 (83) 98 04/30/18 15:24 96 41 90 Intake and Output 04/30/18 05/01/18 19:00 07:00 Intake Total 1168.62 ml 1558.32 ml Output Total 565 ml 325 ml Balance 603.62 ml 1233.32 ml IV Total 1058.62 ml 1288.32 ml Tube Feeding 110 ml 270 ml Output Urine Total 565 ml 325 ml Laboratory Tests 05/01/18 04:30: White Blood Count 14.8H, Red Blood Count 2.74L, Hemoglobin 8.6#L, Hematocrit 26.2#L, Mean Corpuscular Volume 95, Mean Corpuscular Hemoglobin 31.2H, Mean Corpuscular Hemoglobin Concent 32.7, Red Cell Distribution Width 13.3, Platelet Count 129L, Mean Platelet Volume 7.2, Neutrophils (%) (Auto) , Lymphocytes (%) ( Auto) , Monocytes (%) (Auto) , Eosinophils (%) (Auto) , Basophils (%) (Auto) , Differential Total Cells Counted 100, Neutrophils % (Manual) 89H, Lymphocytes % (Manual) 5L, Monocytes % (Manual) 6, Eosinophils % (Manual) 0, Basophils % ( Manual) 0, Band Neutrophils 0, Platelet Estimate DecreasedL, Platelet Morphology Normal, [place] Cells Occasional, Uric Acid 7.1, Phosphorus Level 2.7, Magnesium Level 1.6L, Troponin I 0.088H, C-Reactive Protein, Quantitative 20.6H , Pro-B-Type Natriuretic Peptide [id number] 05/01/18 05:00: Sodium Level 140, Potassium Level 3.7, Chloride Level 108H, Carbon Dioxide Level 16L, Anion Gap 16H, Blood Urea Nitrogen 68H, Creatinine 4.5H, Estimat Glomerular Filtration Rate 13.6, Glucose Level 223H, Calcium Level 8.0L, Total Bilirubin 0.9, Aspartate Amino Transf (AST/SGOT) 35, Alanine Aminotransferase ( ALT/SGPT) 17, Alkaline Phosphatase 59, Total Protein 4.9L, Albumin 1.9L, Globulin 3.0, Albumin/Globulin Ratio 0.6L Height (Feet): 5 Height (Inches): 10.00 Weight (Pounds): 163 EENT: other - vented Cardiovascular: tachycardia Respiratory/Chest: decreased breath sounds Abdomen: distended Deon Rojas MD May 01, 2018 15:19
--- NOTE | 2018-05-01 15:31 | NUR ---
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 98.5 HR 89 RR 41 B/P 96/51 AC 20 TV 600 FIO2 80% PEEP 5 WBC 14.8 H/H 8.6/26.2 BUN 68 CR 4.5 ALB 1.9 IS: IRON IV IVF D5KCL @ 100ML/HR THIAMINE IV ZOSYN IV VANCO IV PROTONIX IV KEPPRA IV DILANTIN IV TRANSFER TO [facility] WHEN BED AVAILABLE ICU STATUS
--- NOTE | 2018-05-01 15:34 | Cardiology Report ---
APPROVED REPORT EKG Measurement Heart [id number] TN [id number] Normal sinus rhythm Normal ECG
[2018-05-01] MEDS ORDERED: Lidocaine 1% Plain 30 ml INJ PRN (15:44)
[2018-05-01] MEDS ORDERED: Heparin1,000 units/500ml Premix(Conc:2 units/ml) IV PRN (15:44)
[2018-05-01] MEDS: Thiamine HCl 100 MG in NS 55 ML IVPB SCH (15:52)
--- NOTE | 2018-05-01 16:00 | NUR ---
NURSE NOTES: pt's daughter at bedside. PICC line consent obtained from pt's daughter.
--- NOTE | 2018-05-01 16:09 | General Progress Note ---
Assessment/Plan Assessment/Plan Assessment and Recs: # Anemia of chronic disease due to underlying chronic medical issues, multifactorial --> in addition due to KELLY, have started iron on 04/30 --> Anemia workup has been reviewed, ferritin 373 --> No evidence of hemolysis is noted, peripheral smear has been reviewed. --> Hgb goal >7. Transfuse prn. --> Given 2 units prbc on 04/25/18, had a reaction, transfusion reaction ordered --> Medications have been reviewed --> gi recs appreciated # Anemia due to alcohol withdrawal/myelosuppresion --> Monitor for withdrawal symptoms --> thimaine, folic acid, ivf, ativan prn ordered # Leukocytosis/Elevated white blood cell count, unspecified likely related to underlying stress reaction, smoking, or underlying infection (especially if bandemia is noted) --> have reviewed peripheral smear and bandemia/neutrophilia noted --> continue antibiotics if they have been started by ID team --> monitor for resolution --> WBC trend: 16-->15-->18-->14 # Thrombocutopenia due to etoh abise --> trend 114k # Alcohol abuse --> rec cessation # Epileptic seizure, generalized --> as per neuro # Intubated in ICU # Drug abuse # transfse to higher level of care The timing of this note does not necessarily reflect the time of the patient was seen. Greatly appreciate consultation! Subjective ROS Limited/Unobtainable: Yes Allergies: Coded Allergies: No Known Allergies (Unverified , 04/24/18) Subjective 04/26: awake, comfortable, no acute distress. 04/27: Pt was transferred to ICU, intubated, wbc 16 04/29: seen by bedside, comfortable, wbc 15 04/30: started on iv iron, no fev, chills noted 05/01: On vent, comatose, wbc trending down Objective Last 24 Hour Vital Signs Date Time Temp Pulse Resp B/P (MAP) Pulse Ox O2 Delivery O2 Flow Rate FiO2 05/01/18 15:16 92 43 60 05/01/18 15:00 93 41 100/47 (64) 98 05/01/18 15:00 93 41 100/47 (64) 98 05/01/18 14:30 93 40 101/53 (69) 99 05/01/18 14:00 93 41 102/51 (68) 98 05/01/18 13:30 93 41 104/49 (67) 97 05/01/18 13:20 93 41 96 Mechanical Ventilator 70 05/01/18 13:20 93 41 70 05/01/18 13:00 90 42 114/54 (74) 100 05/01/18 13:00 40 Mechanical Ventilator 70 05/01/18 12:55 89 41 99 Mechanical Ventilator 80 05/01/18 12:30 90 41 106/51 (69) 99 05/01/18 12:00 98.5 89 41 101/51 (68) 100 05/01/18 12:00 Mechanical Ventilator 05/01/18 12:00 40 Mechanical Ventilator 80 05/01/18 12:00 80 05/01/18 12:00 90 05/01/18 11:30 89 40 102/52 (69) 100 05/01/18 11:09 88 40 80 05/01/18 11:00 40 Mechanical Ventilator 80 05/01/18 11:00 89 40 102/56 (71) 100 05/01/18 10:30 90 41 96/51 (66) 100 05/01/18 10:00 91 40 101/52 (68) 100 05/01/18 10:00 40 Mechanical Ventilator 90 05/01/18 09:30 92 40 110/56 (74) 100 05/01/18 09:04 93 40 90 05/01/18 09:00 93 39 116/56 (76) 100 05/01/18 09:00 40 Mechanical Ventilator 90 05/01/18 08:30 93 39 117/54 (75) 100 05/01/18 08:00 98.6 93 39 106/52 (70) 100 05/01/18 08:00 93 05/01/18 08:00 Mechanical Ventilator 05/01/18 08:00 38 Mechanical Ventilator 100 05/01/18 08:00 100 05/01/18 07:55 92 40 100 Mechanical Ventilator 90 05/01/18 07:45 107/55 05/01/18 07:35 88 41 100 Mechanical Ventilator 100 05/01/18 07:32 86 39 100 05/01/18 07:30 86 37 108/55 (72) 100 05/01/18 07:00 40 Mechanical Ventilator 100 05/01/18 07:00 86 40 98/46 (63) 100 05/01/18 06:00 87 40 98/54 (69) 100 05/01/18 05:30 88 40 98/51 (67) 100 05/01/18 05:00 37 Mechanical Ventilator 100 05/01/18 05:00 90 40 102/53 (69) 97 05/01/18 04:54 90 40 100 05/01/18 04:30 91 40 97/47 (64) 97 05/01/18 04:14 91 40 100 05/01/18 04:00 99.8 91 40 99/52 (68) 99 05/01/18 04:00 Mechanical Ventilator 05/01/18 04:00 93 05/01/18 04:00 40 Mechanical Ventilator 100 05/01/18 04:00 100 05/01/18 03:30 94 40 99/47 (64) 93 05/01/18 03:00 40 Mechanical Ventilator 100 05/01/18 03:00 90 40 95/44 (61) 98 05/01/18 02:00 41 Mechanical Ventilator 90 05/01/18 02:00 92 40 97/49 (65) 98 05/01/18 01:30 99.9 94 40 94/50 (65) 98 05/01/18 01:00 97 42 110/56 (74) 99 05/01/18 01:00 40 Mechanical Ventilator 40 05/01/18 00:59 96 40 100 Mechanical Ventilator 90 05/01/18 00:51 99.9 05/01/18 00:50 97 42 97 Mechanical Ventilator 90 05/01/18 00:50 97 42 90 05/01/18 00:30 97 40 107/45 (65) 95 05/01/18 00:00 90 05/01/18 00:00 95 05/01/18 00:00 Mechanical Ventilator 05/01/18 00:00 100.4 97 40 96/50 (65) 95 05/01/18 00:00 38 Mechanical Ventilator 90 05/01/18 00:00 97 40 96/50 (65) 95 04/30/18 23:30 96 39 92/45 (61) 96 04/30/18 23:00 95 42 98/45 (62) 96 04/30/18 23:00 40 Mechanical Ventilator 90 04/30/18 22:59 95 39 90 04/30/18 22:30 98 42 113/53 (73) 96 04/30/18 22:00 97 40 97 04/30/18 22:00 40 Mechanical Ventilator 90 04/30/18 21:30 97 40 113/58 (76) 95 04/30/18 21:11 95 38 90 04/30/18 21:00 40 Mechanical Ventilator 90 04/30/18 21:00 95 40 102/55 (71) 100 04/30/18 20:30 98 38 106/50 (68) 100 04/30/18 20:00 98 38 114/53 (73) 100 04/30/18 20:00 90 04/30/18 20:00 45 Mechanical Ventilator 90 04/30/18 20:00 102 04/30/18 20:00 Mechanical Ventilator 04/30/18 19:55 44 Mechanical Ventilator 90 04/30/18 19:33 96 34 100 Mechanical Ventilator 90 04/30/18 19:30 99.5 96 36 124/60 (81) 100 04/30/18 19:25 92 38 100 Mechanical Ventilator 90 04/30/18 19:25 92 38 90 04/30/18 19:00 94 40 112/65 (81) 98 04/30/18 19:00 92 38 118/58 (78) 100 04/30/18 18:00 95 41 115/62 (79) 98 04/30/18 17:22 94 41 90 04/30/18 17:00 99 40 118/65 (82) 98 04/30/18 16:30 94 40 112/62 (79) 98 Intake and Output 04/30/18 05/01/18 19:00 07:00 Intake Total 1168.62 ml 1558.32 ml Output Total 565 ml 325 ml Balance 603.62 ml 1233.32 ml IV Total 1058.62 ml 1288.32 ml Tube Feeding 110 ml 270 ml Output Urine Total 565 ml 325 ml Laboratory Tests 05/01/18 04:30: White Blood Count 14.8H, Red Blood Count 2.74L, Hemoglobin 8.6#L, Hematocrit 26.2#L, Mean Corpuscular Volume 95, Mean Corpuscular Hemoglobin 31.2H, Mean Corpuscular Hemoglobin Concent 32.7, Red Cell Distribution Width 13.3, Platelet Count 129L, Mean Platelet Volume 7.2, Neutrophils (%) (Auto) , Lymphocytes (%) ( Auto) , Monocytes (%) (Auto) , Eosinophils (%) (Auto) , Basophils (%) (Auto) , Differential Total Cells Counted 100, Neutrophils % (Manual) 89H, Lymphocytes % (Manual) 5L, Monocytes % (Manual) 6, Eosinophils % (Manual) 0, Basophils % ( Manual) 0, Band Neutrophils 0, Platelet Estimate DecreasedL, Platelet Morphology Normal, Rip Cells Occasional, Uric Acid 7.1, Phosphorus Level 2.7, Magnesium Level 1.6L, Troponin I 0.088H, C-Reactive Protein, Quantitative 20.6H , Pro-B-Type Natriuretic Peptide [id number] 05/01/18 05:00: Sodium Level 140, Potassium Level 3.7, Chloride Level 108H, Carbon Dioxide Level 16L, Anion Gap 16H, Blood Urea Nitrogen 68H, Creatinine 4.5H, Estimat Glomerular Filtration Rate 13.6, Glucose Level 223H, Calcium Level 8.0L, Total Bilirubin 0.9, Aspartate Amino Transf (AST/SGOT) 35, Alanine Aminotransferase ( ALT/SGPT) 17, Alkaline Phosphatase 59, Total Protein 4.9L, Albumin 1.9L, Globulin 3.0, Albumin/Globulin Ratio 0.6L 05/01/18 16:00: Arterial Blood pH 7.173*L, Arterial Blood Partial Pressure CO2 43.2, Arterial Blood Partial Pressure O2 61.9L, Arterial Blood HCO3 15.5*L, Arterial Blood Oxygen Saturation 88.7*L, Arterial Blood Base Excess -12.3*L, Aaron Test Positive Height (Feet): 5 Height (Inches): 10.00 Weight (Pounds): 163 Objective PE: General Appearance: well appearing, no apparent distress, alert Head: normocephalic EENT: PERRL/EOMI, normal ENT inspection Neck: supple Respiratory: normal breath sounds, no respiratory distress, intubated++ Cardiovascular: normal rate Gastrointestinal: normal inspection, non tender, soft, normal bowel sounds, non -distended Rectal: deferred Genitourinary: deferred Musculoskeletal: normal inspection, back normal Mirza Greenfield MD May 01, 2018 16:09
--- NOTE | 2018-05-01 16:19 | General Progress Note ---
Assessment/Plan Problem List: (1) Anemia ICD Codes: D64.9 - Anemia, unspecified SNOMED: 217505681 (2) Alcohol abuse ICD Codes: F10.10 - Alcohol abuse, uncomplicated SNOMED: 66020596 (3) Epileptic seizure, generalized ICD Codes: G40.309 - Generalized idiopathic epilepsy and epileptic syndromes, not intractable, without status epilepticus SNOMED: 94181073 Status: unchanged Assessment/Plan encephalopathy anemia afebrile not improving lethargic intubated resp failure sepsis Subjective ROS Limited/Unobtainable: Yes Allergies: Coded Allergies: No Known Allergies (Unverified , 04/24/18) Objective Last 24 Hour Vital Signs Date Time Temp Pulse Resp B/P (MAP) Pulse Ox O2 Delivery O2 Flow Rate FiO2 05/01/18 15:16 92 43 60 05/01/18 15:00 93 41 100/47 (64) 98 05/01/18 15:00 93 41 100/47 (64) 98 05/01/18 14:30 93 40 101/53 (69) 99 05/01/18 14:00 93 41 102/51 (68) 98 05/01/18 13:30 93 41 104/49 (67) 97 05/01/18 13:20 93 41 96 Mechanical Ventilator 70 05/01/18 13:20 93 41 70 05/01/18 13:00 90 42 114/54 (74) 100 05/01/18 13:00 40 Mechanical Ventilator 70 05/01/18 12:55 89 41 99 Mechanical Ventilator 80 05/01/18 12:30 90 41 106/51 (69) 99 05/01/18 12:00 98.5 89 41 101/51 (68) 100 05/01/18 12:00 Mechanical Ventilator 05/01/18 12:00 40 Mechanical Ventilator 80 05/01/18 12:00 80 05/01/18 12:00 90 05/01/18 11:30 89 40 102/52 (69) 100 05/01/18 11:09 88 40 80 05/01/18 11:00 40 Mechanical Ventilator 80 05/01/18 11:00 89 40 102/56 (71) 100 05/01/18 10:30 90 41 96/51 (66) 100 05/01/18 10:00 91 40 101/52 (68) 100 05/01/18 10:00 40 Mechanical Ventilator 90 3/19/19 09:30 92 40 110/56 (74) 100 05/01/18 09:04 93 40 90 05/01/18 09:00 93 39 116/56 (76) 100 05/01/18 09:00 40 Mechanical Ventilator 90 05/01/18 08:30 93 39 117/54 (75) 100 05/01/18 08:00 98.6 93 39 106/52 (70) 100 05/01/18 08:00 93 05/01/18 08:00 Mechanical Ventilator 05/01/18 08:00 38 Mechanical Ventilator 100 05/01/18 08:00 100 05/01/18 07:55 92 40 100 Mechanical Ventilator 90 05/01/18 07:45 107/55 05/01/18 07:35 88 41 100 Mechanical Ventilator 100 05/01/18 07:32 86 39 100 05/01/18 07:30 86 37 108/55 (72) 100 05/01/18 07:00 40 Mechanical Ventilator 100 05/01/18 07:00 86 40 98/46 (63) 100 05/01/18 06:00 87 40 98/54 (69) 100 05/01/18 05:30 88 40 98/51 (67) 100 05/01/18 05:00 37 Mechanical Ventilator 100 05/01/18 05:00 90 40 102/53 (69) 97 05/01/18 04:54 90 40 100 05/01/18 04:30 91 40 97/47 (64) 97 05/01/18 04:14 91 40 100 05/01/18 04:00 99.8 91 40 99/52 (68) 99 05/01/18 04:00 Mechanical Ventilator 05/01/18 04:00 93 05/01/18 04:00 40 Mechanical Ventilator 100 05/01/18 04:00 100 05/01/18 03:30 94 40 99/47 (64) 93 05/01/18 03:00 40 Mechanical Ventilator 100 05/01/18 03:00 90 40 95/44 (61) 98 05/01/18 02:00 41 Mechanical Ventilator 90 05/01/18 02:00 92 40 97/49 (65) 98 05/01/18 01:30 99.9 94 40 94/50 (65) 98 05/01/18 01:00 97 42 110/56 (74) 99 05/01/18 01:00 40 Mechanical Ventilator 40 05/01/18 00:59 96 40 100 Mechanical Ventilator 90 05/01/18 00:51 99.9 05/01/18 00:50 97 42 97 Mechanical Ventilator 90 05/01/18 00:50 97 42 90 05/01/18 00:30 97 40 107/45 (65) 95 05/01/18 00:00 90 05/01/18 00:00 95 05/01/18 00:00 Mechanical Ventilator 05/01/18 00:00 100.4 97 40 96/50 (65) 95 05/01/18 00:00 38 Mechanical Ventilator 90 05/01/18 00:00 97 40 96/50 (65) 95 04/30/18 23:30 96 39 92/45 (61) 96 04/30/18 23:00 95 42 98/45 (62) 96 04/30/18 23:00 40 Mechanical Ventilator 90 04/30/18 22:59 95 39 90 04/30/18 22:30 98 42 113/53 (73) 96 04/30/18 22:00 97 40 97 04/30/18 22:00 40 Mechanical Ventilator 90 04/30/18 21:30 97 40 113/58 (76) 95 04/30/18 21:11 95 38 90 04/30/18 21:00 40 Mechanical Ventilator 90 04/30/18 21:00 95 40 102/55 (71) 100 04/30/18 20:30 98 38 106/50 (68) 100 04/30/18 20:00 98 38 114/53 (73) 100 04/30/18 20:00 90 04/30/18 20:00 45 Mechanical Ventilator 90 04/30/18 20:00 102 04/30/18 20:00 Mechanical Ventilator 04/30/18 19:55 44 Mechanical Ventilator 90 04/30/18 19:33 96 34 100 Mechanical Ventilator 90 04/30/18 19:30 99.5 96 36 124/60 (81) 100 04/30/18 19:25 92 38 100 Mechanical Ventilator 90 04/30/18 19:25 92 38 90 04/30/18 19:00 94 40 112/65 (81) 98 04/30/18 19:00 92 38 118/58 (78) 100 04/30/18 18:00 95 41 115/62 (79) 98 04/30/18 17:22 94 41 90 04/30/18 17:00 99 40 118/65 (82) 98 04/30/18 16:30 94 40 112/62 (79) 98 Intake and Output 04/30/18 05/01/18 19:00 07:00 Intake Total 1168.62 ml 1558.32 ml Output Total 565 ml 325 ml Balance 603.62 ml 1233.32 ml IV Total 1058.62 ml 1288.32 ml Tube Feeding 110 ml 270 ml Output Urine Total 565 ml 325 ml Laboratory Tests 05/01/18 04:30: White Blood Count 14.8H, Red Blood Count 2.74L, Hemoglobin 8.6#L, Hematocrit 26.2#L, Mean Corpuscular Volume 95, Mean Corpuscular Hemoglobin 31.2H, Mean Corpuscular Hemoglobin Concent 32.7, Red Cell Distribution Width 13.3, Platelet Count 129L, Mean Platelet Volume 7.2, Neutrophils (%) (Auto) , Lymphocytes (%) ( Auto) , Monocytes (%) (Auto) , Eosinophils (%) (Auto) , Basophils (%) (Auto) , Differential Total Cells Counted 100, Neutrophils % (Manual) 89H, Lymphocytes % (Manual) 5L, Monocytes % (Manual) 6, Eosinophils % (Manual) 0, Basophils % ( Manual) 0, Band Neutrophils 0, Platelet Estimate DecreasedL, Platelet Morphology Normal, Rip Cells Occasional, Uric Acid 7.1, Phosphorus Level 2.7, Magnesium Level 1.6L, Troponin I 0.088H, C-Reactive Protein, Quantitative 20.6H , Pro-B-Type Natriuretic Peptide [id number] 05/01/18 05:00: Sodium Level 140, Potassium Level 3.7, Chloride Level 108H, Carbon Dioxide Level 16L, Anion Gap 16H, Blood Urea Nitrogen 68H, Creatinine 4.5H, Estimat Glomerular Filtration Rate 13.6, Glucose Level 223H, Calcium Level 8.0L, Total Bilirubin 0.9, Aspartate Amino Transf (AST/SGOT) 35, Alanine Aminotransferase ( ALT/SGPT) 17, Alkaline Phosphatase 59, Total Protein 4.9L, Albumin 1.9L, Globulin 3.0, Albumin/Globulin Ratio 0.6L 05/01/18 16:00: Arterial Blood pH 7.173*L, Arterial Blood Partial Pressure CO2 43.2, Arterial Blood Partial Pressure O2 61.9L, Arterial Blood HCO3 15.5*L, Arterial Blood Oxygen Saturation 88.7*L, Arterial Blood Base Excess -12.3*L, Aaron Test Positive Height (Feet): 5 Height (Inches): 10.00 Weight (Pounds): 163 General Appearance: lethargic, confused Respiratory/Chest: crackles/rales Farhan Joaquin MD May 01, 2018 16:19
--- NOTE | 2018-05-01 17:30 | NUR ---
NURSE NOTES: Patient's BP dropped to SBP 70s, titrating levophed, O2 sat dropped to 70-80s. AC24, TV500, PEEP 5, FIO2 increased to 100%. RR decreased to 28. Dr. Griffin made aware of ABG results and pt's condition. New orders received and carried out.
--- NOTE | 2018-05-01 17:45 | NUR ---
NURSE NOTES: Received a call from [facility], bed is available. However, patient is not stable for transfer. Dr. Gaby ramos.
--- NOTE | 2018-05-01 18:45 | NUR ---
NURSE NOTES: Patient had a small BM, unable to collect for OB stool
[2018-05-01] MEDS ORDERED: Sodium Bicarbonate 150 ML in D5W 1000ml 1,000 ML IV SCH (19:00)
[2018-05-01] MEDS: Vasopressin 100 UNITS in NS 95 ML IV SCH (19:00)
--- NOTE | 2018-05-01 19:05 | NUR ---
RESPIRATORY NOTE: Received pt. on 840 vent. Vent settings are: A/C rate of 24, Vt 550, FI02 100%, PEEP +5. No respiratory distress noted, pt. Sp02 @ 100%. Ambu bag @ BS. Vent plugged on red outlet. Will continue to monitor pt.
[2018-05-01 19:11] LABS: HEMATOCRIT 29.4 % (42.0-52.0); HEMOGLOBIN 9.6 G/DL (14.2-18.0); MEAN CORPUSCULAR VOLUME 95 FL (80-99); PLATELET COUNT 155 K/UL (150-450); RED BLOOD COUNT 3.08 M/UL (4.70-6.10); RED CELL DISTRIBUTION WIDTH 13.7 % (11.6-14.8); WHITE BLOOD COUNT 14.4 K/UL (4.8-10.8)
[2018-05-01 19:27] LABS: ANION GAP 16 mmol/L (5-15); BLOOD UREA NITROGEN 70 mg/dL (7-18); CALCIUM 8.2 MG/DL (8.5-10.1); CARBON DIOXIDE 16 MMOL/L (21-32); CHLORIDE 106 MMOL/L (98-107); CREATININE 4.6 MG/DL (0.55-1.30); POTASSIUM 4.3 MMOL/L (3.5-5.1); SODIUM 138 MMOL/L (136-145)
--- NOTE | 2018-05-01 19:30 | NUR ---
HAND-OFF: Report given to SHARLA Cortes.
[2018-05-01 19:32] LABS: ALANINE AMINOTRANSFERASE 16 U/L (12-78); ALBUMIN 2.5 G/DL (3.4-5.0); ALBUMIN/GLOBULIN RATIO 0.8 (1.0-2.7); ALKALINE PHOSPHATASE 73 U/L (46-116); ASPARTATE AMINO TRANSFERASE 37 U/L (15-37)
--- NOTE | 2018-05-01 19:35 | NUR ---
NURSE NOTES: Received the report and patient from SHARLA Dasilva. Patient in bed, comatose, non responsive. Orally intubated, ETT size 7.5, 23cm at lip line. Settings: AV 24, TV 550, FIO2 100%, PEEP 5. SR noted on the monitor. Right nare NGT intact, running Nepro 1.8 at 30ml/hr. Right femoral TLC intact, running D51/2NS with 10meq KCl at 100ml/hr, Levophed at 12mcg/min, Versed at 1mg/hr. Right wrist 22G intact. Meade cath intact, draining yellow urine by gravity, poor urine output. Bed in lowest position, locked, side rails upx3, side rails padded. Call light within reach. Will continue to monitor.
[2018-05-01] MEDS: SODIUM BICARBONATE IV SCH (20:41)
[2018-05-01] MEDS: Dyna-Hex 2% Top Sol 2oz TOPIC SCH (20:41)
[2018-05-01] MEDS: D5 IV SCH (20:41)
[2018-05-01] MEDS: KCL IV SCH (20:41)
[2018-05-01] MEDS: [UNRECOGNIZED DRUG - OTHER] IV SCH (20:41)
[2018-05-01] MEDS: Iron Sucrose 100 MG in NS 55 ML IV SCH (20:41)
--- NOTE | 2018-05-01 21:00 | NUR ---
NURSE NOTES: Patient in bed, comatose. Orally intubated, ETT size 7.5, 23cm at lip line. Settings: AV 20, TV 600, FIO2 100%, PEEP 5. O2 sat 100%. SR noted on the monitor. Started D51/2NS with 10meq KCl added 3 amps of Bicarb per Dr Griffin at 100ml/hr, Levophed at 10mcg/min, Versed at 1mg/hr. Will continue to monitor.
--- NOTE | 2018-05-01 23:00 | NUR ---
NURSE NOTES: Pt's resting in bed, was visited by his family. Pt's still non-responsive, comatose, intubated with vent setting at AC 24, TV 550, FiO2 100%, peep 5, O2 sat 100%. BP 97/53, will continue to monitor.
--- NOTE | 2018-05-01 23:30 | Electroencephalogram ---
DATE OF PROCEDURE: 04/28/2018 REQUESTING PHYSICIANS: Farhan Joaquin M.D. & James Caicedo M.D. READING PHYSICIAN: Brandon Quiñones M.D. PROCEDURE PERFORMED: Electroencephalogram. HISTORY: This EEG was performed on a 58-year-old gentleman with a history of alcohol-related seizures and a significant decline in function. The patient's prior EEG performed on April 27, 2018 did reveal multiple electrographic seizures emanating from the right temporal area. The purpose of this EEG was to evaluate the patient for ongoing ictal or interictal phenomena. TECHNICAL NOTE: This EEG was performed on a [employer] [facility] [facility] with electrodes placed on the scalp according to the International 10-20 system. Nfbfm-rp-zwhci and fubxh-rq-bwi montages were used. The EEG was technically satisfactory and was performed while the patient was in a poorly responsive state. The patient is on unknown doses of Keppra, Dilantin, and Ativan for control of his seizures. OBSERVATIONS: In the poorly responsive state, the background activity consisted of 4-5 Hz theta and 1.5-2 Hz delta activity. Right temporal semi-periodic slow waves and at times sharp discharges were seen throughout the tracing. No definite electrographic or clinical seizures were noted. IMPRESSION: This is an abnormal EEG characterized by: 1. Slowing of the background in the theta and delta range. 2. The presence of right temporal semi-periodic slow waves and sometimes sharp and slow wave discharges. COMMENT: This study is consistent with a generalized encephalopathy of a moderately severe degree, and right temporal focal dysfunction with epileptiform tendencies. Brandon Quiñones M.D., M.S.P.H. DR: BRIANDA JOB#: [id number] [facility]
--- NOTE | 2018-05-01 23:30 | Electroencephalogram ---
DATE OF PROCEDURE: 04/27/2018 REQUESTING PHYSICIANS: Farhan Joaquin M.D. & James Caicedo M.D. READING PHYSICIAN: Brandon Quiñones M.D. PROCEDURE PERFORMED: Electroencephalogram. HISTORY: This EEG was performed on a 58-year-old gentleman with a history of seizures thought to be related to alcohol use. The patient was having multiple seizures and thus this EEG was performed to evaluate the patient for ongoing ictal or interictal phenomena. TECHNICAL NOTE: This EEG was performed on a [employer] Unit with electrodes placed on the scalp according to the International 10-20 system. Kmagp-qy-uflnh and ullnt-ue-sgc montages were used. The EEG was technically satisfactory and was performed while the patient was in a poorly responsive state. OBSERVATIONS: In the poorly responsive state, the background activity consisted of 5-6 Hz theta and 1.5-2 Hz delta activity. F8-T4 sharp and slow-wave discharges, which built up to crescendo and then slowed down to a decrescendo were seen. These episodes lasted from 5 to 40 seconds. The patient had a total of 10 episodes during the entire tracing. These episodes were then followed by slowing of electrical activity in the same area. IMPRESSION: This is an abnormal EEG characterized by: 1. Slowing of the background in the theta and delta range. 2. The presence of F8-T4 sharp and slow wave discharges that built up to a crescendo and then a decrescendo lasting from 5 to 40 seconds and followed by postictal slowing. COMMENT: This study is consistent with: 1. Generalized cerebral dysfunction of a moderate degree. 2. Focal seizures emanating from the right anterior and mid temporal area. Clinical correlation is recommended. Brandon Quiñones M.D., M.S.P.H. DR: BRIANDA JOB#: [id number] [facility]ian
--- NOTE | 2018-05-01 23:45 | Electroencephalogram ---
DATE OF PROCEDURE: 04/29/2018 REQUESTING PHYSICIANS: Farhan Joaquin M.D. & James Caicedo M.D. HISTORY: This EEG was performed on a 58-year-old gentleman who came in with alcohol related seizures and was having focal seizures emanating from the right temporal area. Following that, the patient has been on Keppra and phenytoin and has been unresponsive. The purpose of this EEG was to evaluate the patient for ongoing ictal or interictal phenomena. TECHNICAL NOTE: This EEG was performed on a [employer] acquisition Unit with electrodes placed on the scalp according to the International 10-20 system. Jqgsj-dq-ennbh and prkrg-rj-uuv montages were used. The EEG was technically satisfactory and was performed while the patient was in a comatose state. OBSERVATIONS: In the reportedly comatose state, the background activity consisted of a suppression burst pattern. There were periods of suppression lasting from 3-5 seconds followed by bursts of electrical activity lasting approximately 1 second. The patient was unarousable during the entire tracing. No definite focal or lateralizing findings were seen on the EEG. No epileptiform discharges or electrographic seizures were noted. IMPRESSION: This is an abnormal EEG characterized by a suppression burst pattern. COMMENT: This study is consistent with an encephalopathy of severe degree. Clinical correlation is recommended. Brandon Quiñones M.D., M.S.P.H. DR: Carine JOB#: [id number] [facility]
--- NOTE | 2018-05-01 23:45 | Electroencephalogram ---
DATE OF PROCEDURE: 04/30/2018 REQUESTING PHYSICIANS: James Caicedo M.D. & Farhan Joaquin M.D. READING PHYSICIAN: Brandon Quiñones M.D. PROCEDURE PERFORMED: Electroencephalogram. HISTORY: This EEG was performed on a 58-year-old gentleman, who came in with alcohol related seizures and at one point in time, was having focal seizures emanating from the right temporal area. The patient has been comatose since then and has been exhibiting a burst suppression pattern on a prior EEG. The purpose of this EEG was to evaluate the patient for the degree and type of cerebral dysfunction and to exclude ongoing ictal or interictal phenomena. TECHNICAL NOTE: This EEG was performed on [employer] with electrodes placed on the scalp according to the International 10-20 system. Gvqgv-lv-kgzhe and pftxg-ua-kwg montages were used. The EEG was technically satisfactory and was performed while the patient was in the comatose state. The patient is on unknown doses of Neurontin, Keppra, and Versed. OBSERVATIONS: In the comatose state, while the patient was on Versed, the background activity consisted of a suppression burst pattern. There were periods of suppression lasting from 2-4 seconds followed by bursts of electrical activity lasting approximately 1 second. No definite focal abnormalities or epileptiform discharges were seen throughout the tracing. No electrographic seizures were seen. IMPRESSION: This is an abnormal EEG characterized by a suppression burst pattern. COMMENT: This study is consistent with an encephalopathy of a severe degree. Clinical correlation is recommended. Brandon Quiñones M.D., M.S.P.H. DR: BRIANDA JOB#: [id number] MTDD
[2018-05-02] VITALS (85 sets, daily range): BP systolic 55–174; BP diastolic 14–94
--- NOTE | 2018-05-02 | NUR ---
NURSE NOTES: Pt's in bed, O2 sat 100%, BP110/60, continue with current managements. Will continue to monitor.
[2018-05-02] MEDS: NovoLOG Insulin Flexpen SUBQ SCH ×6 (00:29→20:56)
[2018-05-02] MEDS: Piperacillin/Tazobactam 3.375 GM in NS 110 ML IVPB SCH ×3 (00:34→23:42)
--- NOTE | 2018-05-02 01:00 | Progress Note ---
DATE: 05/01/2018 SUBJECTIVE: The patient is doing worse. His blood pressure is alright on 2 mcg of Levophed. This needs to be increased. He is still in a coma. PHYSICAL EXAMINATION: VITAL SIGNS: Blood pressure is about 77/35, respiration rate is in the 40s, and pulse is 94. NEUROLOGIC: Mental status, he is in a deep coma. No response to voice or deep pain. CRANIAL NERVE EXAMINATION: Pupils are about 4 mm and round. No light reaction. Extraocular motility was impaired. The eyes, however, in the midline. CRANIAL NERVE V: Some corneal reaction, more on the right than the left. MUSCULOSKELETAL: Muscle tone is flaccid. He is quadriplegic. Reflexes are 0 in the upper and lower extremities with mute toes signs on testing for Babinski response. SENSORY: No response to the pain was noted in his extremities or on his chest. IMPRESSION: The patient is deteriorating. He needs to have his Levophed increased. Arterial blood gas revealed pH 7.173 with pO2 of and pCO2 of 43.2. The patient can continue on the medications. I may want to obtain another EEG in the morning. Otherwise, I will hold off. PLAN: Follow the patient with you. James Caicedo MD DR: KAM JOB#: [id number] CC: BREE
[2018-05-02] MEDS: Albuterol/Ipratropium 3ml neb HHN SCH ×3 (02:06→13:24)
--- NOTE | 2018-05-02 02:40 | NUR ---
NURSE NOTES: Pt's in bed, BP127/64, Hr 104, SpO2 99%, RR 45, continue with current vent setting. Noted oral temp at 101.0F, giving tylenol per ordered via NGT. Will continue to monitor.
[2018-05-02] MEDS: Acetaminophen 650mg/20.3ml NG PRN (02:43)
--- NOTE | 2018-05-02 04:36 | NUR ---
NURSE NOTES: Called and notified MD Griffin about patient change in condition at this time. Sinus maday HR 40's. Sats 23%. Orders received and read back to MD at this time.
--- NOTE | 2018-05-02 04:49 | NUR ---
CODE BLUE: See Code sheet which remains on paper.
[2018-05-02] MEDS: Vasopressin 100 UNITS in NS 95 ML IV SCH ×2 (04:50→19:00)
--- NOTE | 2018-05-02 04:55 | NUR ---
NURSE NOTES: ROSC at this time. Maxed on all pressors at this time. sinus tach HR 130, SPB 124. Sat 30%.
--- NOTE | 2018-05-02 05:04 | Emergency Room Report ---
History of Present Illness General Chief Complaint: Seizure Source: Caregiver Present Illness Allergies: Coded Allergies: No Known Allergies (Unverified , 04/24/18) Nursing Documentation-PMH Hx Cardiac Problems: Yes Hx Hypertension: Yes Hx Diabetes: Yes Hx Cancer: No Hx Gastrointestinal Problems: No History Of Psychiatric Problem: Yes - ETOH abuse Hx Neurological Problems: No Physical Exam Vital Signs Date Time Temp Pulse Resp B/P (MAP) Pulse Ox O2 Delivery O2 Flow Rate FiO2 04/28/18 07:00 94 27 103/58 (73) 100 04/28/18 07:35 Mechanical Ventilator 100 04/28/18 08:00 99.1 Procedures CPR/Code Blue CPR/Code Blue Narrative Patient was noted to have a bradycardia asystolic arrest. Patient had been given epi x2 prior to my arrival. Patient was noted to have spontaneous pulse subsequently. Patient was noted to be on max dose pressors Patient was noted to have adequate blood pressure and narrow complex rhythm. Patient was returned to mechanical ventilator. Medical Decision Making Diagnostic Impression: Primary Impression: Epileptic seizure, generalized Additional Impressions: Alcohol abuse Anemia Alcohol withdrawal Last Vital Signs Date Time Temp Pulse Resp B/P (MAP) Pulse Ox O2 Delivery O2 Flow Rate FiO2 05/02/18 03:00 99/47 05/02/18 03:00 42 Mechanical Ventilator 05/02/18 02:50 99 80 05/02/18 02:22 99 05/02/18 00:00 98.5 Disposition: ADMITTED INPATIENT Condition: Critical Referrals: NOT CHOSEN GHASSAN/,REFERRING (PCP) Aquilino Diehl MD May 02, 2018 05:04
--- NOTE | 2018-05-02 05:05 | NUR ---
NURSE NOTES: Called and spoke with Daughter Asia at this time. Updates given. Told her we are still working on her fathers oxygen saturations at this time. Questions in regards to Diagnosis should be directed to MD's. asked her if she wanted me to call sister Gissel at this time stated " NO, I will tell her"
--- NOTE | 2018-05-02 05:10 | NUR ---
NURSE NOTES: Called and spoke with MD Griffin at this time. Told him about S/P code. Read back stat ABG ordered. Orders received and read back to MD. Informed MD family was notified already about change of condition and Questions in regards to Diagnosis were directed to MD. Gaby stated "ok"
[2018-05-02] MEDS: DOPamine 400mg/250ml 250 ML IV SCH ×2 (05:16→18:16)
[2018-05-02] MEDS ORDERED: Sodium Bicarbonate 50ml Carp ONE (05:19)
[2018-05-02] MEDS ORDERED: Sodium Bicarbonate 50ml Carp IV SCH (05:30)
[2018-05-02 05:32] LABS: BASOPHILS % (AUTO) 0.8 % (0.0-2.0); EOSINOPHILS % (AUTO) 0.5 % (0.0-3.0); HEMATOCRIT 29.7 % (42.0-52.0); HEMOGLOBIN 9.4 G/DL (14.2-18.0); LYMPHOCYTES % (AUTO) 24.5 % (20.0-45.0); MEAN CORPUSCULAR VOLUME 98 FL (80-99); MONOCYTES % (AUTO) 5.6 % (1.0-10.0); NEUTROPHILS % (AUTO) 68.6 % (45.0-75.0); PLATELET COUNT 129 K/UL (150-450); RED BLOOD COUNT 3.02 M/UL (4.70-6.10); RED CELL DISTRIBUTION WIDTH 13.9 % (11.6-14.8); WHITE BLOOD COUNT 10.8 K/UL (4.8-10.8)
[2018-05-02 05:37] LABS: ANION GAP 18 mmol/L (5-15); BLOOD UREA NITROGEN 70 mg/dL (7-18); CALCIUM 8.1 MG/DL (8.5-10.1); CARBON DIOXIDE 13 MMOL/L (21-32); CHLORIDE 108 MMOL/L (98-107); CREATININE 4.9 MG/DL (0.55-1.30); POTASSIUM 4.4 MMOL/L (3.5-5.1); SODIUM 139 MMOL/L (136-145)
[2018-05-02 05:48] LABS: ALANINE AMINOTRANSFERASE 19 U/L (12-78); ALKALINE PHOSPHATASE 79 U/L (46-116); ASPARTATE AMINO TRANSFERASE 49 U/L (15-37); BILIRUBIN,TOTAL 0.5 MG/DL (0.2-1.0); PHOSPHORUS 4.4 MG/DL (2.5-4.9)
--- NOTE | 2018-05-02 06:00 | NUR ---
NURSE NOTES: Pt's BP 121/62, HR 130, RR 30, SpO2 92%, current vent setting Ett 7.5, 27 lipline, Ac 30, TV550, FiO2 100%, PEEP 10. Titrating down his Dopamine and Levophed, continue with Vasopressin. Will continue to monitor.
--- NOTE | 2018-05-02 06:06 | General Progress Note ---
Assessment/Plan Problem List: (1) Acute respiratory failure ICD Codes: J96.00 - Acute respiratory failure, unspecified whether with hypoxia or hypercapnia SNOMED: 19610060 (2) Diabetes ICD Codes: E11.9 - Type 2 diabetes mellitus without complications SNOMED: 20246029 (3) Diabetic nephropathy ICD Codes: E11.21 - Type 2 diabetes mellitus with diabetic nephropathy SNOMED: 453310885 (4) Renal failure (ARF), acute on chronic ICD Codes: N17.9 - Acute kidney failure, unspecified; N18.9 - Chronic kidney disease, unspecified SNOMED: 253458199 (5) Alcohol abuse ICD Codes: F10.10 - Alcohol abuse, uncomplicated SNOMED: 44673895 (6) Anemia ICD Codes: D64.9 - Anemia, unspecified SNOMED: 743888814 (7) Alcohol withdrawal ICD Codes: F10.239 - Alcohol dependence with withdrawal, unspecified SNOMED: 903741065 (8) Epileptic seizure, generalized ICD Codes: G40.309 - Generalized idiopathic epilepsy and epileptic syndromes, not intractable, without status epilepticus SNOMED: 92281210 Assessment/Plan continue Novolog sliding scale every 4 hours increase Levemir to 15 units bid Subjective ROS Limited/Unobtainable: Yes Allergies: Coded Allergies: No Known Allergies (Unverified , 04/24/18) Subjective events noted Item Value Date Time Bedside Blood Glucose 310 mg/dl H 05/02/18 0500 Bedside Blood Glucose 232 mg/dl H 05/02/18 0029 Bedside Blood Glucose 248 mg/dl H 05/01/18 2101 Bedside Blood Glucose 306 mg/dl H 05/01/18 1807 Bedside Blood Glucose 202 mg/dl H 05/01/18 1234 Bedside Blood Glucose 215 mg/dl H 05/01/18 0443 Bedside Blood Glucose 212 mg/dl H 05/01/18 0830 Bedside Blood Glucose 206 mg/dl H 05/01/18 0012 Objective Last 24 Hour Vital Signs Date Time Temp Pulse Resp B/P (MAP) Pulse Ox O2 Delivery O2 Flow Rate FiO2 05/02/18 05:32 99.2 05/02/18 05:16 76/43 05/02/18 05:00 91 36 100 05/02/18 03:00 99/47 05/02/18 03:00 42 Mechanical Ventilator 05/02/18 02:50 99 41 80 05/02/18 02:22 104 41 99 Mechanical Ventilator 80 05/02/18 02:06 96 43 100 Mechanical Ventilator 80 05/02/18 02:00 101/60 05/02/18 02:00 42 Mechanical Ventilator 05/02/18 01:30 96 43 80 05/02/18 01:00 100/53 05/02/18 01:00 42 Mechanical Ventilator 05/02/18 00:00 103 05/02/18 00:00 98.5 100 43 102/54 (70) 100 05/02/18 00:00 100 05/02/18 00:00 110/60 05/02/18 00:00 42 Mechanical Ventilator 05/02/18 00:00 Mechanical Ventilator 05/01/18 23:45 101 43 104/54 (71) 100 05/01/18 23:30 99 42 98/52 (67) 100 05/01/18 23:30 99 41 100 05/01/18 23:15 99 42 97/53 (68) 100 05/01/18 23:00 99 42 97/50 (66) 100 05/01/18 23:00 97/53 05/01/18 23:00 42 Mechanical Ventilator 05/01/18 22:45 99 42 100/55 (70) 100 05/01/18 22:30 99 42 104/52 (69) 100 05/01/18 22:15 99 41 100/57 (71) 100 05/01/18 22:05 105/53 05/01/18 22:00 100 41 105/53 (70) 100 05/01/18 22:00 100/57 05/01/18 22:00 42 Mechanical Ventilator 05/01/18 21:45 100 41 109/53 (71) 100 05/01/18 21:30 101 42 107/56 (73) 100 05/01/18 21:21 100 43 100 05/01/18 21:15 100 42 105/53 (70) 100 05/01/18 21:00 105/53 05/01/18 21:00 42 Mechanical Ventilator 05/01/18 21:00 101 42 105/55 (72) 100 05/01/18 20:45 102 42 106/53 (70) 100 05/01/18 20:30 103 42 107/55 (72) 100 05/01/18 20:15 104 41 111/53 (72) 100 05/01/18 20:00 Mechanical Ventilator 05/01/18 20:00 107 05/01/18 20:00 111/53 05/01/18 20:00 42 Mechanical Ventilator 05/01/18 20:00 98.4 105 42 113/57 (75) 100 05/01/18 20:00 100 05/01/18 19:23 110 43 100 Mechanical Ventilator 100 05/01/18 19:03 110 41 100 05/01/18 19:02 110 41 100 Mechanical Ventilator 100 05/01/18 19:00 109 36 148/70 (96) 100 05/01/18 18:45 111 42 135/63 (87) 100 05/01/18 18:30 111 40 149/60 (89) 95 05/01/18 18:15 110 40 145/61 (89) 95 05/01/18 18:00 110 40 143/60 (87) 95 05/01/18 17:55 102 40 125/56 (79) 98 05/01/18 17:50 76 36 89/40 (56) 84 05/01/18 17:45 67 29 83/41 (55) 79 05/01/18 17:40 67 26 78/38 (51) 72 05/01/18 17:30 71 28 84/39 (54) 73 05/01/18 17:25 65 27 78/35 (49) 77 05/01/18 17:15 71 38 70/33 (45) 89 05/01/18 17:05 94 47 85 05/01/18 17:00 86 44 94/42 (59) 95 05/01/18 16:45 86 40 92/46 (61) 95 05/01/18 16:30 98 44 101/48 (65) 97 05/01/18 16:15 100 44 108/53 (71) 97 05/01/18 16:00 98.5 99 44 114/52 (72) 96 05/01/18 16:00 80 05/01/18 16:00 Mechanical Ventilator 05/01/18 16:00 87 05/01/18 15:45 93 43 120/52 (74) 95 05/01/18 15:30 85 42 77/39 (52) 96 05/01/18 15:16 92 43 60 05/01/18 15:00 93 41 100/47 (64) 98 05/01/18 14:30 93 40 101/53 (69) 99 05/01/18 14:00 93 41 102/51 (68) 98 05/01/18 13:30 93 41 104/49 (67) 97 05/01/18 13:20 93 41 96 Mechanical Ventilator 70 05/01/18 13:20 93 41 70 05/01/18 13:00 90 42 114/54 (74) 100 05/01/18 13:00 40 Mechanical Ventilator 70 05/01/18 12:55 89 41 99 Mechanical Ventilator 80 05/01/18 12:30 90 41 106/51 (69) 99 05/01/18 12:00 98.5 89 41 101/51 (68) 100 05/01/18 12:00 Mechanical Ventilator 05/01/18 12:00 40 Mechanical Ventilator 80 05/01/18 12:00 80 05/01/18 12:00 90 05/01/18 11:30 89 40 102/52 (69) 100 05/01/18 11:09 88 40 80 05/01/18 11:00 40 Mechanical Ventilator 80 05/01/18 11:00 89 40 102/56 (71) 100 05/01/18 10:30 90 41 96/51 (66) 100 05/01/18 10:00 91 40 101/52 (68) 100 05/01/18 10:00 40 Mechanical Ventilator 90 05/01/18 09:30 92 40 110/56 (74) 100 05/01/18 09:04 93 40 90 05/01/18 09:00 93 39 116/56 (76) 100 05/01/18 09:00 40 Mechanical Ventilator 90 05/01/18 08:30 93 39 117/54 (75) 100 05/01/18 08:00 98.6 93 39 106/52 (70) 100 05/01/18 08:00 93 05/01/18 08:00 Mechanical Ventilator 05/01/18 08:00 38 Mechanical Ventilator 100 05/01/18 08:00 100 05/01/18 07:55 92 40 100 Mechanical Ventilator 90 05/01/18 07:45 107/55 05/01/18 07:35 88 41 100 Mechanical Ventilator 100 05/01/18 07:32 86 39 100 05/01/18 07:30 86 37 108/55 (72) 100 05/01/18 07:00 40 Mechanical Ventilator 100 05/01/18 07:00 86 40 98/46 (63) 100 Intake and Output 05/01/18 05/02/18 19:00 07:00 Intake Total 2573.150 ml 1404.42 ml Output Total 455 ml 140 ml Balance 2118.150 ml 1264.42 ml Free Water 150 ml 60 ml IV Total 2063.150 ml 1134.42 ml Tube Feeding 360 ml 210 ml Output Urine Total 455 ml 140 ml # Bowel Movements 1 Laboratory Tests 05/01/18 16:00: Arterial Blood pH 7.173*L, Arterial Blood Partial Pressure CO2 43.2, Arterial Blood Partial Pressure O2 61.9L, Arterial Blood HCO3 15.5*L, Arterial Blood Oxygen Saturation 88.7*L, Arterial Blood Base Excess -12.3*L, Aaron Test Positive 05/01/18 18:45: White Blood Count 14.4H, Red Blood Count 3.08L, Hemoglobin 9.6L, Hematocrit 29.4L, Mean Corpuscular Volume 95, Mean Corpuscular Hemoglobin 31.2H, Mean Corpuscular Hemoglobin Concent 32.7, Red Cell Distribution Width 13.7, Platelet Count 155, Mean Platelet Volume 6.7, Neutrophils (%) (Auto) , Lymphocytes (%) ( Auto) , Monocytes (%) (Auto) , Eosinophils (%) (Auto) , Basophils (%) (Auto) , Differential Total Cells Counted 100, Neutrophils % (Manual) 81H, Lymphocytes % (Manual) 5L, Monocytes % (Manual) 7, Eosinophils % (Manual) 1, Basophils % ( Manual) 0, Metamyelocytes % 1H, Band Neutrophils 5, Platelet Estimate Adequate, Platelet Morphology Normal, Burton Cells 1+, Crenated Cell 2+, Sodium Level 138, Potassium Level 4.3, Chloride Level 106, Carbon Dioxide Level 16L, Anion Gap 16H , Blood Urea Nitrogen 70H, Creatinine 4.6H, Estimat Glomerular Filtration Rate 13.2, Glucose Level 338#H, Lactic Acid Level 1.90, Calcium Level 8.2L, Total Bilirubin 1.0, Aspartate Amino Transf (AST/SGOT) 37, Alanine Aminotransferase ( ALT/SGPT) 16, Alkaline Phosphatase 73, Total Protein 5.7L, Albumin 2.5L, Globulin 3.2, Albumin/Globulin Ratio 0.8L 05/02/18 04:32: Arterial Blood pH 6.852*L, Arterial Blood Partial Pressure CO2 64.0*H, Arterial Blood Partial Pressure O2 34.4*L, Arterial Blood HCO3 11.0*L, Arterial Blood Oxygen Saturation 46.9*L, Arterial Blood Base Excess -22.2*L, Aaron Test Positive 05/02/18 05:00: White Blood Count 10.8, Red Blood Count 3.02L, Hemoglobin 9.4L, Hematocrit 29.7L , Mean Corpuscular Volume 98, Mean Corpuscular Hemoglobin 31.2H, Mean Corpuscular Hemoglobin Concent 31.8L, Red Cell Distribution Width 13.9, Platelet Count 129L, Mean Platelet Volume 7.5, Neutrophils (%) (Auto) 68.6, Lymphocytes (%) (Auto) 24.5, Monocytes (%) (Auto) 5.6, Eosinophils (%) (Auto) 0.5, Basophils (%) (Auto) 0.8, Sodium Level 139, Potassium Level 4.4, Chloride Level 108H, Carbon Dioxide Level 13L, Anion Gap 18H, Blood Urea Nitrogen 70H, Creatinine 4.9H, Estimat Glomerular Filtration Rate 12.3, Glucose Level 308H, Calcium Level 8.1L, Total Bilirubin 0.5, Aspartate Amino Transf (AST/SGOT) 49H, Alanine Aminotransferase (ALT/SGPT) 19, Alkaline Phosphatase 79, Total Protein 6.0L, Albumin 2.0L, Globulin 4.0, Uric Acid 6.6, Phosphorus Level 4.4, Magnesium Level 2.3, Troponin I 0.793H, Pro-B-Type Natriuretic Peptide 13618M, Phenytoin (Dilantin) Level 12.5 Height (Feet): 5 Height (Inches): 10.00 Weight (Pounds): 163 General Appearance: severe distress Neck: normal alignment Cardiovascular: tachycardia Respiratory/Chest: decreased breath sounds Abdomen: normal bowel sounds Objective Current Medications Medications (Trade) Dose Ordered Sig/Bj Route PRN Reason Start Time Stop Time Status Last Admin Dose Admin Acetaminophen (Tylenol) 650 mg Q4H PRN NG Mild Pain/Temp > 100.5 05/01/18 15:30 05/27/18 21:29 05/02/18 02:43 Acetaminophen (Tylenol) 650 mg Q4H PRN RECTAL Mild Pain (Pain Scale 1-3) 04/27/18 21:30 05/27/18 21:29 04/28/18 14:39 Acyclovir 1000 mg/ Sodium Chloride 275 ml @ 275 mls/hr Q24HRS IV 04/29/18 09:00 05/29/18 08:59 05/01/18 09:18 Albuterol/ Ipratropium (Albuterol/ Ipratropium) 3 ml Q4H PRN HHN Shortness of Breath 04/27/18 21:45 05/02/18 17:44 Albuterol/ Ipratropium (Albuterol/ Ipratropium) 3 ml Q6HRT HHN 04/28/18 01:00 05/02/18 18:59 05/02/18 02:06 Allopurinol (Zyloprim) 200 mg DAILY NG 04/29/18 09:00 05/28/18 08:59 05/01/18 08:27 Chlorhexidine Gluconate (Lidia-Hex 2%) 1 applic DAILY@2000 TOPIC 05/01/18 20:00 05/31/18 19:59 05/01/18 20:41 Clonidine HCl (Catapres Tab) 0.1 mg Q4H PRN NG bp over 160 syst 05/01/18 15:30 05/26/18 21:29 Dextrose (Dextrose 50%) 25 ml Q30M PRN IV Hypoglycemia 04/29/18 07:30 05/29/18 07:29 Dextrose (Dextrose 50%) 50 ml Q30M PRN IV Hypoglycemia 04/29/18 07:30 05/29/18 07:29 Dopamine HCl/ Dextrose 250 ml @ 0 mls/hr Q24H IV 05/02/18 04:45 06/01/18 04:44 05/02/18 05:16 Folic Acid (Folate) 1 mg DAILY NG 05/02/18 09:00 06/01/18 08:59 Heparin Sodium (Porcine) (Heparin 5000 units/ml) 5,000 units EVERY 12 HOURS SUBQ 04/28/18 09:00 05/27/18 20:59 05/01/18 20:43 Insulin Aspart (NovoLOG) EVERY 4 HOURS SUBQ 04/29/18 09:00 05/29/18 08:59 05/02/18 05:00 Insulin Detemir (Levemir) 8 units BID SUBQ 05/01/18 09:00 05/29/18 08:59 05/01/18 18:07 Iron Sucrose 100 mg/Sodium Chloride 60 ml @ 240 mls/hr BEDTIME IV 04/30/18 21:00 05/04/18 21:14 05/01/18 20:41 Levetiracetam 250 mg/Sodium Chloride 112.5 ml @ 450 mls/hr Q12HR IV 04/27/18 22:00 05/27/18 21:59 05/01/18 20:41 Lorazepam (Ativan 2mg/ml 1ml) 1 mg Q2H PRN IV alcohol withdraw, seizure 04/27/18 21:15 05/02/18 11:07 05/02/18 02:37 Lorazepam (Ativan 2mg/ml 1ml) 2 mg Q4H PRN IV For Anxiety 04/30/18 09:45 05/07/18 09:44 05/01/18 03:38 Metoclopramide HCl (Reglan) 10 mg Q6H PRN IVP Nausea & Vomiting 04/27/18 21:30 05/27/18 21:29 Midazolam HCl 100 ml @ 2 mls/hr Q24H IVPB 04/28/18 16:15 05/05/18 16:14 04/30/18 19:55 Midodrine (Pro-Amatine) 2.5 mg THREE TIMES A DAY NG 05/01/18 18:00 05/31/18 17:59 05/01/18 17:22 Multivitamins (Multivitamins) 1 tab DAILY ORAL 05/02/18 09:00 06/01/18 08:59 Norepinephrine Bitartrate 8 mg/ Dextrose 508 ml @ 0 mls/hr Q24H IV 04/29/18 07:45 05/29/18 07:44 05/01/18 22:05 Ondansetron HCl (Zofran) 4 mg Q6H PRN IVP Nausea & Vomiting 04/27/18 21:30 05/27/18 21:29 Pantoprazole (Protonix) 40 mg EVERY 12 HOURS IVP 04/28/18 09:00 05/25/18 20:59 05/01/18 21:09 Phenytoin 300 mg/ Sodium Chloride 116 ml @ 120 mls/hr DAILY IVPB 04/28/18 09:00 05/28/18 08:59 05/01/18 09:13 Piperacillin Sod/ Tazobactam Sod 3.375 gm/Sodium Chloride 110 ml @ 27.5 mls/hr Q12H IVPB 04/29/18 00:00 05/06/18 00:00 05/02/18 00:34 Sodium Bicarbonate 150 ml/Dextrose/ Electrolytes 1,150 ml @ 100 mls/hr Q91E75L IV 05/01/18 19:00 05/31/18 18:59 05/01/18 20:41 Sodium Bicarbonate (Sodium Bicarbonate) 150 ml ONCE IV 05/02/18 05:30 05/02/18 06:30 05/02/18 05:24 Thiamine HCl 100 mg/Sodium Chloride 56 ml @ 112 mls/hr Q24H IVPB 04/29/18 15:00 05/29/18 14:59 05/01/18 15:52 Vasopressin 100 units/Sodium Chloride 100 ml @ 2.4 mls/hr Q24H IV 05/01/18 19:00 05/31/18 18:59 Shoaib Ocampo MD May 02, 2018 06:06
[2018-05-02] MEDS: [UNRECOGNIZED DRUG - OTHER] IV SCH ×2 (06:30→07:53)
[2018-05-02] MEDS: SODIUM BICARBONATE IV SCH ×3 (06:30→15:35)
[2018-05-02] MEDS: D5 IV SCH ×3 (06:30→15:35)
[2018-05-02] MEDS: KCL IV SCH ×2 (06:30→07:53)
--- NOTE | 2018-05-02 07:15 | NUR ---
RESPIRATORY NOTE:Received pt. on 840 vent. Vent settings are: A/C rate of 30, Vt 550, FI02 100%, PEEP +10. Ambu bag @ BS. Vent plugged on red outlet. Will continue to monitor pt.
--- NOTE | 2018-05-02 07:20 | NUR ---
HAND-OFF: Report given to SHARLA Cabrera.
--- NOTE | 2018-05-02 07:35 | NUR ---
NURSE NOTES: Received report from SHARLA Cortes. Patient received lying in bed, unresponsive to name or pain, comatose. Intubated, vent settings AC- 30, TV -550, FiO2-100%, PEEP - 10, oxygen saturation at 88-90%, lung sounds diminished. Right nare NG tube in place, clamped, feeding held. HOB elevated. Abdomen large, not firm. Non-pitting edema noted to upper extremities. Right femoral TLC running IV fluids Levophed at 28mcg/min, dopamine at 6 mcg/min, D5 1/2 NS with Potassium 10 MEQ and 3 amps of Bicarb at 100 ml/hr, vasopressin at 0.04 units/min, central line asymptomatic. Meade catheter in place, draining to yellow urine with sediment. Sinus Tachycardia on the monitor. Patient is post code, will continue to monitor. Pending CXR results and PICC line placement today.
[2018-05-02] MEDS ORDERED: Norepinephrine 4mg in D5W 250ml IV SCH (08:00)
[2018-05-02] MEDS ORDERED: Lidocaine 1% Plain 30 ml INJ PRN (08:30)
[2018-05-02] MEDS ORDERED: Heparin1,000 units/500ml Premix(Conc:2 units/ml) IV PRN (08:30)
--- NOTE | 2018-05-02 08:30 | NUR ---
NURSE NOTES: Dr. velarde in facility, updated on patient's condition, current vent settings and latest ABG results. Addendum: 05/02/18 at 1726 by Rick Dumont RN agreed to hold tube feeding until tomorrow for aspiration prevention.
--- NOTE | 2018-05-02 08:38 | Pulmonolgy Critical Care Note ---
Critical Care - Asmt/Plan Problems: (1) ARDS (adult respiratory distress syndrome) (2) Shock (3) Aspiration pneumonia (4) Bilateral pneumonia (5) Hypoxemia (6) Renal failure (ARF), acute on chronic (7) Diabetic nephropathy (8) Epileptic seizure, generalized (9) Marijuana abuse (10) Alcohol abuse (11) Alcohol withdrawal (12) Anemia Assessment/Plan: -Continue ventilatory support/settings reviewed: RR 30, TV 550 (~ 8 mg/kg IBW), 100/5 -Versed gtt held -Keppra/Dilantin, monitor EEG, F/U neuro recs -Vaso 0.04, Titrate NE and DA as able to keep MAP > 60 -IVF with HCO3- [place] [facility] [place], too unstable for transfer to [facility] -Abx (Zosyn) & Acyclovir per ID, F/U Cx's, may need bronch -RTC and PRN DUOnebs -ABG -TF's -Monitor BS, SQ insulin, F/U ENDO recs -Monitor volumes, F/U renal recs -MVI/thiamine/Folate -F/U GI and heme recs Re: anemia -DVT Px: Hep SQ -Keep in ICU, transfer to 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 transfer center Notes Reviewed: carton forming machine helper, cardio, renal, ID, neuro Discussed with: nurses, consultants, family member - message left for daughter - ICU staff has called her many times O/N as well, other - FC Critical Care - Objective Last 24 Hour Vital Signs Date Time Temp Pulse Resp B/P (MAP) Pulse Ox O2 Delivery O2 Flow Rate FiO2 05/02/18 08:00 141/66 05/02/18 08:00 122/62 05/02/18 08:00 136/65 05/02/18 07:00 141/66 05/02/18 07:00 130/66 05/02/18 07:00 127 30 136/65 (88) 87 05/02/18 06:45 127 30 133/65 (87) 83 05/02/18 06:40 100 05/02/18 06:30 108 47 130/60 (83) 80 05/02/18 06:30 133/65 05/02/18 06:15 130/60 05/02/18 06:15 129 30 121/62 (81) 91 05/02/18 06:00 122 30 115/55 (75) 05/02/18 06:00 121/62 05/02/18 06:00 121/62 05/02/18 05:45 133 30 124/65 (84) 05/02/18 05:32 99.2 05/02/18 05:30 131 32 117/72 (87) 72 05/02/18 05:16 76/43 05/02/18 05:15 131 21 129/65 (86) 83 05/02/18 05:00 129/65 05/02/18 05:00 91 36 100 05/02/18 05:00 72 24 76/43 (54) 8 05/02/18 04:52 129 24 140/66 (90) 19 05/02/18 04:50 55/31 05/02/18 04:45 44 32 77/14 (35) 20 05/02/18 04:40 92 7 55/31 (39) 23 05/02/18 04:30 100 05/02/18 04:30 42 25 59/35 (43) 26 05/02/18 04:27 43 27 65/34 (44) 39 05/02/18 04:15 100 44 84/44 (57) 90 05/02/18 04:00 99.5 99 45 95/50 (65) 97 05/02/18 04:00 95 05/02/18 04:00 84/44 05/02/18 04:00 42 Mechanical Ventilator 05/02/18 04:00 Mechanical Ventilator 05/02/18 04:00 100 05/02/18 03:45 95 44 91/44 (60) 95 05/02/18 03:30 98 45 92/46 (61) 95 05/02/18 03:15 98 45 94/47 (63) 94 05/02/18 03:00 102 45 99/47 (64) 97 05/02/18 03:00 99/47 05/02/18 03:00 42 Mechanical Ventilator 05/02/18 02:50 99 41 80 05/02/18 02:45 104 46 108/52 (70) 98 05/02/18 02:30 105 45 114/54 (74) 99 05/02/18 02:22 104 41 99 Mechanical Ventilator 80 05/02/18 02:15 101 42 127/64 (85) 99 05/02/18 02:06 96 43 100 Mechanical Ventilator 80 05/02/18 02:00 101/60 05/02/18 02:00 42 Mechanical Ventilator 05/02/18 02:00 101.0 96 43 103/53 (70) 100 05/02/18 01:45 97 43 103/53 (70) 100 05/02/18 01:30 96 43 80 05/02/18 01:30 97 43 104/51 (68) 100 05/02/18 01:15 97 43 100/53 (69) 100 05/02/18 01:00 98 43 98/51 (67) 100 05/02/18 01:00 100/53 05/02/18 01:00 42 Mechanical Ventilator 05/02/18 00:00 103 05/02/18 00:00 98.5 100 43 102/54 (70) 100 05/02/18 00:00 100 05/02/18 00:00 110/60 05/02/18 00:00 42 Mechanical Ventilator 05/02/18 00:00 Mechanical Ventilator 05/01/18 23:45 101 43 104/54 (71) 100 05/01/18 23:30 99 42 98/52 (67) 100 05/01/18 23:30 99 41 100 05/01/18 23:15 99 42 97/53 (68) 100 05/01/18 23:00 99 42 97/50 (66) 100 05/01/18 23:00 97/53 05/01/18 23:00 42 Mechanical Ventilator 05/01/18 22:45 99 42 100/55 (70) 100 05/01/18 22:30 99 42 104/52 (69) 100 05/01/18 22:15 99 41 100/57 (71) 100 05/01/18 22:05 105/53 05/01/18 22:00 100 41 105/53 (70) 100 05/01/18 22:00 100/57 05/01/18 22:00 42 Mechanical Ventilator 05/01/18 21:45 100 41 109/53 (71) 100 05/01/18 21:30 101 42 107/56 (73) 100 05/01/18 21:21 100 43 100 05/01/18 21:15 100 42 105/53 (70) 100 05/01/18 21:00 105/53 05/01/18 21:00 42 Mechanical Ventilator 05/01/18 21:00 101 42 105/55 (72) 100 05/01/18 20:45 102 42 106/53 (70) 100 05/01/18 20:30 103 42 107/55 (72) 100 05/01/18 20:15 104 41 111/53 (72) 100 05/01/18 20:00 Mechanical Ventilator 05/01/18 20:00 107 05/01/18 20:00 111/53 05/01/18 20:00 42 Mechanical Ventilator 05/01/18 20:00 98.4 105 42 113/57 (75) 100 05/01/18 20:00 100 05/01/18 19:23 110 43 100 Mechanical Ventilator 100 05/01/18 19:03 110 41 100 05/01/18 19:02 110 41 100 Mechanical Ventilator 100 05/01/18 19:00 109 36 148/70 (96) 100 05/01/18 18:45 111 42 135/63 (87) 100 05/01/18 18:30 111 40 149/60 (89) 95 05/01/18 18:15 110 40 145/61 (89) 95 05/01/18 18:00 110 40 143/60 (87) 95 05/01/18 17:55 102 40 125/56 (79) 98 05/01/18 17:50 76 36 89/40 (56) 84 05/01/18 17:45 67 29 83/41 (55) 79 05/01/18 17:40 67 26 78/38 (51) 72 05/01/18 17:30 71 28 84/39 (54) 73 05/01/18 17:25 65 27 78/35 (49) 77 05/01/18 17:15 71 38 70/33 (45) 89 05/01/18 17:05 94 47 85 05/01/18 17:00 86 44 94/42 (59) 95 05/01/18 16:45 86 40 92/46 (61) 95 05/01/18 16:30 98 44 101/48 (65) 97 05/01/18 16:15 100 44 108/53 (71) 97 05/01/18 16:00 98.5 99 44 114/52 (72) 96 05/01/18 16:00 80 05/01/18 16:00 Mechanical Ventilator 05/01/18 16:00 87 05/01/18 15:45 93 43 120/52 (74) 95 05/01/18 15:30 85 42 77/39 (52) 96 05/01/18 15:16 92 43 60 05/01/18 15:00 93 41 100/47 (64) 98 05/01/18 14:30 93 40 101/53 (69) 99 05/01/18 14:00 93 41 102/51 (68) 98 05/01/18 13:30 93 41 104/49 (67) 97 05/01/18 13:20 93 41 96 Mechanical Ventilator 70 05/01/18 13:20 93 41 70 05/01/18 13:00 90 42 114/54 (74) 100 05/01/18 13:00 40 Mechanical Ventilator 70 05/01/18 12:55 89 41 99 Mechanical Ventilator 80 05/01/18 12:30 90 41 106/51 (69) 99 05/01/18 12:00 98.5 89 41 101/51 (68) 100 05/01/18 12:00 Mechanical Ventilator 05/01/18 12:00 40 Mechanical Ventilator 80 05/01/18 12:00 80 05/01/18 12:00 90 05/01/18 11:30 89 40 102/52 (69) 100 05/01/18 11:09 88 40 80 05/01/18 11:00 40 Mechanical Ventilator 80 05/01/18 11:00 89 40 102/56 (71) 100 05/01/18 10:30 90 41 96/51 (66) 100 05/01/18 10:00 91 40 101/52 (68) 100 05/01/18 10:00 40 Mechanical Ventilator 90 05/01/18 09:30 92 40 110/56 (74) 100 05/01/18 09:04 93 40 90 05/01/18 09:00 93 39 116/56 (76) 100 05/01/18 09:00 40 Mechanical Ventilator 90 05/01/18 08:30 93 39 117/54 (75) 100 Status: obtunded - intubated Condition: critical HEENT: atraumatic, normocephalic, other - ETT, NGT Lungs: rhonchi Heart: HR/BP unstable Abdomen: soft, non-tender, active bowel sounds Extremities: edema - trace, cyanosis - no, clubbing - no, other - R FEM TLC Accucheck: 310 Blood Sugars: BS not controlled Critical Care - Subjective ROS Limited/Unobtainable: Yes ICU Day: 6 Intubation Day: 6 Interval Events: Worsening acidosis, inc pressor needs, Ovi --> PEA arrest O/N S/P ROSC p EPI x 2, ETT repositioned by ER 7.1/63/45//77 on AC 30 TV 500 100/10 EEG with burst suppression Tx to [facility] had to be held 2/2 clinical instability Condition: critical IV Access: central - R FEM TLC EKG Rhythm: Sinus Tachycardia FI02: 100 Vent Support Breath Rate: 30 Vent Support Mode: AC Vent Tidal Volume: 550 Sputum Amount: Scant PEEP: 10.0 PIP: 33 Secretions: Minimal Fluids: [id number]@100 Drips: NE 26, VASO 0.04, DA 4 Tube Feeding Amount: 30 I&O: Intake and Output 05/01/18 05/02/18 18:59 06:59 Intake Total 2567.530 ml 2158.603 ml Output Total 445 ml 160 ml Balance 2122.530 ml 1998.603 ml Free Water 150 ml 60 ml IV Total 2057.530 ml 1798.603 ml Tube Feeding 360 ml 300 ml Output Urine Total 445 ml 160 ml # Bowel Movements 1 Subjective: KALI CXR: B infiltrates, ETT 8 cm above kleber, advanced, repeat CXR pending ET-Tube: 7.5 ET Position: 27 Labs: Laboratory Tests Test 05/01/18 16:00 05/01/18 18:45 05/02/18 04:32 05/02/18 05:00 Arterial Blood pH 7.173 (7.350-7.450) 6.852 (7.350-7.450) Arterial Blood Partial Pressure CO2 43.2 mmHg (35.0-45.0) 64.0 mmHg (35.0-45.0) *H Arterial Blood Partial Pressure O2 61.9 mmHg (75.0-100.0) L 34.4 mmHg (75.0-100.0) Arterial Blood HCO3 15.5 mmol/L (22.0-26.0) *L 11.0 mmol/L (22.0-26.0) *L Arterial Blood Oxygen Saturation 88.7 % (95-100) *L 46.9 % (95-100) *L Arterial Blood Base Excess -12.3 (-2-2) *L -22.2 (-2-2) *L Aaron Test Positive Positive White Blood Count 14.4 K/UL (4.8-10.8) H 10.8 K/UL (4.8-10.8) Red Blood Count 3.08 M/UL (4.70-6.10) L 3.02 M/UL (4.70-6.10) L Hemoglobin 9.6 G/DL (14.2-18.0) L 9.4 G/DL (14.2-18.0) L Hematocrit 29.4 % (42.0-52.0) L 29.7 % (42.0-52.0) L Mean Corpuscular Volume 95 FL (80-99) 98 FL (80-99) Mean Corpuscular Hemoglobin 31.2 PG (27.0-31.0) H 31.2 PG (27.0-31.0) H Mean Corpuscular Hemoglobin Concent 32.7 G/DL (32.0-36.0) 31.8 G/DL (32.0-36.0) L Red Cell Distribution Width 13.7 % (11.6-14.8) 13.9 % (11.6-14.8) Platelet Count 155 K/UL (150-450) 129 K/UL (150-450) L Mean Platelet Volume 6.7 FL (6.5-10.1) 7.5 FL (6.5-10.1) Neutrophils (%) (Auto) % (45.0-75.0) 68.6 % (45.0-75.0) Lymphocytes (%) (Auto) % (20.0-45.0) 24.5 % (20.0-45.0) Monocytes (%) (Auto) % (1.0-10.0) 5.6 % (1.0-10.0) Eosinophils (%) (Auto) % (0.0-3.0) 0.5 % (0.0-3.0) Basophils (%) (Auto) % (0.0-2.0) 0.8 % (0.0-2.0) Differential Total Cells Counted 100 Neutrophils % (Manual) 81 % (45-75) H Lymphocytes % (Manual) 5 % (20-45) L Monocytes % (Manual) 7 % (1-10) Eosinophils % (Manual) 1 % (0-3) Basophils % (Manual) 0 % (0-2) Metamyelocytes % 1 % (0-0) H Band Neutrophils 5 % (0-8) Platelet Estimate Adequate Platelet Morphology Normal [place] Cells 1+ Crenated Cell 2+ Sodium Level 138 MMOL/L (136-145) 139 MMOL/L (136-145) Potassium Level 4.3 MMOL/L (3.5-5.1) 4.4 MMOL/L (3.5-5.1) Chloride Level 106 MMOL/L (98-107) 108 MMOL/L (98-107) H Carbon Dioxide Level 16 MMOL/L (21-32) L 13 MMOL/L (21-32) L Anion Gap 16 mmol/L (5-15) H 18 mmol/L (5-15) H Blood Urea Nitrogen 70 mg/dL (7-18) H 70 mg/dL (7-18) H Creatinine 4.6 MG/DL (0.55-1.30) H 4.9 MG/DL (0.55-1.30) H Estimat Glomerular Filtration Rate 13.2 mL/min (>60) 12.3 mL/min (>60) Glucose Level 338 MG/DL (74-106) #H 308 MG/DL (74-106) H Lactic Acid Level 1.90 mmol/L (0.4-2.0) Calcium Level 8.2 MG/DL (8.5-10.1) L 8.1 MG/DL (8.5-10.1) L Total Bilirubin 1.0 MG/DL (0.2-1.0) 0.5 MG/DL (0.2-1.0) Aspartate Amino Transf (AST/SGOT) 37 U/L (15-37) 49 U/L (15-37) H Alanine Aminotransferase (ALT/SGPT) 16 U/L (12-78) 19 U/L (12-78) Alkaline Phosphatase 73 U/L (46-116) 79 U/L (46-116) Total Protein 5.7 G/DL (6.4-8.2) L 6.0 G/DL (6.4-8.2) L Albumin 2.5 G/DL (3.4-5.0) L 2.0 G/DL (3.4-5.0) L Globulin 3.2 g/dL 4.0 g/dL Albumin/Globulin Ratio 0.8 (1.0-2.7) L Uric Acid 6.6 MG/DL (2.6-7.2) Phosphorus Level 4.4 MG/DL (2.5-4.9) Magnesium Level 2.3 MG/DL (1.8-2.4) Troponin I 0.793 ng/mL (0.000-0.056) Pro-B-Type Natriuretic Peptide 86891 pg/mL (0-125) H Phenytoin (Dilantin) Level 12.5 ug/mL (10-20) Test 05/02/18 07:26 Arterial Blood pH 7.093 (7.350-7.450) Arterial Blood Partial Pressure CO2 63.3 mmHg (35.0-45.0) *H Arterial Blood Partial Pressure O2 45.4 mmHg (75.0-100.0) Arterial Blood HCO3 18.9 mmol/L (22.0-26.0) L Arterial Blood Oxygen Saturation 77.5 % (95-100) *L Arterial Blood Base Excess -11.1 (-2-2) *L Aaron Test Positive Abhi Griffin MD May 02, 2018 08:38
--- NOTE | 2018-05-02 08:44 | NUR ---
RADIOLOGY DEPT., CHEST X-RAY PERFORMED BY [facility] JAYDEN PALMA
--- NOTE | 2018-05-02 09:05 | NUR ---
05/02 Concerning MRI, spoke to RN, pt still unstable, on vent, HR 122. tjb 08:50
[2018-05-02] MEDS: NS IV SCH ×3 (09:06→21:15)
[2018-05-02] MEDS: LEVETIRACETAM IV SCH ×2 (09:06→21:15)
--- NOTE | 2018-05-02 10:11 | Diagnostic Imaging Report ---
Indication: Status post repositioning of endotracheal tube Technique: One view of the chest Comparison: 1 1/2 hours earlier Findings: The left lateral lung base is cut off of the exam. Interim advancement of previously high endotracheal tube, tip currently projecting approximately 4 cm above the kleber. There is suggestion of worsening of airspace disease on the right. Diffuse airspace disease on the left appears stable. Stable satisfactory position of nasogastric tube Impression: Improved and now satisfactory position of endotracheal tube. Diffuse bilateral pulmonary parenchymal disease, suspect ARDS, may be slightly worse on the right since earlier study
--- NOTE | 2018-05-02 10:15 | NUR ---
NURSE NOTES: Dr. Rojas in facility, updated on patient's condition.
[2018-05-02] MEDS: Allopurinol 100mg Tab NG SCH (10:17)
--- NOTE | 2018-05-02 10:17 | Diagnostic Imaging Report ---
Indications: Needs long-term IV access Technique: Procedure performed at bedside. Procedural timeout performed. Ultrasound confirms patent compressible right basilic vein. Total sterile technique, including sterile probe cover and sterile gel, sterile gloves, hand hygiene, hat, mask,, sterile gown, large sterile drape, and preparation with 2% chlorhexidine utilized. Local anesthesia with 1% lidocaine. Under real-time ultrasound guidance, puncture basilic vein using 21-gauge needle, passage 0.018 guidewire, exchange for 4 Austrian peel-away sheath. 4 Austrian Bard dual-lumen power PICC cut to 42 cm. It was inserted through the peel-away sheath. Peel-away sheath and guidewire removed. Catheter fixed to the skin. Both catheter ports aspirated and flushed. Patient tolerated procedure well, without immediate complication. Followup chest x-ray obtained, documents catheter tip position at the high right atrium Impression: Successful bedside placement of right arm PICC under sonographic guidance, as described above.
[2018-05-02] MEDS: NS IVPB SCH (10:18)
[2018-05-02] MEDS: PHENYTOIN IVPB SCH (10:18)
[2018-05-02] MEDS: Pantoprazole Inj IVP SCH ×2 (10:18→20:54)
[2018-05-02] MEDS: Heparin 5000 units/ml inj SUBQ SCH ×2 (10:23→20:55)
--- NOTE | 2018-05-02 10:24 | NUR ---
RD ASSESSMENT & RECOMMENDATIONS SEE CARE ACTIVITY FOR COMPLETE ASSESSMENT DAILY ESTIMATED NEEDS: Needs based on Critical care, DM, ARF/ 74kg 22-28 kcals/kg 1138-5841 total kcals 0.6-1.0g/kg without HD g protein/kg 44-74 g total protein 20-25 mL/kg 1383-0247 total fluid mLs NUTRITION DIAGNOSIS: 1) Swallowing difficulty r/t respiratory status as evidenced by s/p code blue, pt is orally intubated, on pressor support, on TF. 2) Altered nutrition related lab values r/t clinical status as evidenced by elev WBC (15.7-> wnl), elev POC glu(310 [phone]), elev creat (1.6-> 4.9 trend up), critical ABG values. CURRENT TF:Nepro @ 30ml/hr x 24 hrs ENTERAL NUTRITION RECOMMENDATIONS: Nepro @ 38ml/hr x 24 hrs to provide 912ml, 1641kcal, 73g prot, 656ml free water WITHOUT HEMODYNAMIC STABILITY: rec trophic feeds of Nepro @ 10ml/hr -> on pressors x 2 at this time WITH HEMODYNAMIC STABILITY: rec goal rate of 38ml/hr x 24 hrs Flush per MD/ HOB over 30 degrees --- IF DILANTIN IS CHANGED TO PO PLEASE INFORM RD FOR RATE CHANGE TO MEET EST NEEDS TF WILL BE HELD ADDITIONAL RECOMMENDATIONS: - Monitor for hemodynamic stability and ability to feeds - Monitor renal fxn and lytes- renal fxn worsening at this time - Calibrated bed scale wts - Consider DC or decreasing D5 for improved BG control
[2018-05-02] MEDS: Levemir Flexpen SUBQ SCH ×2 (10:26→18:06)
[2018-05-02] MEDS: ACYCLOVIR IV SCH (11:17)
--- NOTE | 2018-05-02 11:58 | General Progress Note ---
Assessment/Plan Problem List: (1) Renal insufficiency ICD Codes: N28.9 - Disorder of kidney and ureter, unspecified SNOMED: 684389003, [id number] (2) Marijuana abuse ICD Codes: F12.10 - Cannabis abuse, uncomplicated SNOMED: 74707193 (3) Anemia ICD Codes: D64.9 - Anemia, unspecified SNOMED: 610077112 (4) Alcohol abuse ICD Codes: F10.10 - Alcohol abuse, uncomplicated SNOMED: 87579049 (5) Epileptic seizure, generalized ICD Codes: G40.309 - Generalized idiopathic epilepsy and epileptic syndromes, not intractable, without status epilepticus SNOMED: 07476808 (6) Diabetic nephropathy ICD Codes: E11.21 - Type 2 diabetes mellitus with diabetic nephropathy SNOMED: 562299364 Assessment/Plan monitor labs icu care fu pulm TF on hold poor prognosis Subjective Allergies: Coded Allergies: No Known Allergies (Unverified , 04/24/18) Subjective intubated coded this morning on pressor Objective Last 24 Hour Vital Signs Date Time Temp Pulse Resp B/P (MAP) Pulse Ox O2 Delivery O2 Flow Rate FiO2 05/02/18 11:24 109/62 05/02/18 09:21 118 30 100 05/02/18 08:00 125 05/02/18 08:00 Mechanical Ventilator 05/02/18 08:00 141/66 05/02/18 08:00 122/62 05/02/18 08:00 136/65 05/02/18 07:16 114 30 100 05/02/18 07:16 116 30 91 Mechanical Ventilator 15.0 100 05/02/18 07:16 116 30 91 Mechanical Ventilator 80 05/02/18 07:00 141/66 05/02/18 07:00 130/66 05/02/18 07:00 127 30 136/65 (88) 87 05/02/18 06:45 127 30 133/65 (87) 83 05/02/18 06:40 100 05/02/18 06:30 108 47 130/60 (83) 80 05/02/18 06:30 133/65 05/02/18 06:15 130/60 05/02/18 06:15 129 30 121/62 (81) 91 05/02/18 06:00 122 30 115/55 (75) 05/02/18 06:00 121/62 05/02/18 06:00 121/62 05/02/18 05:45 133 30 124/65 (84) 05/02/18 05:32 99.2 05/02/18 05:30 131 32 117/72 (87) 72 05/02/18 05:16 76/43 05/02/18 05:15 131 21 129/65 (86) 83 05/02/18 05:00 129/65 05/02/18 05:00 91 36 100 05/02/18 05:00 72 24 76/43 (54) 8 05/02/18 04:52 129 24 140/66 (90) 19 05/02/18 04:50 55/31 05/02/18 04:45 44 32 77/14 (35) 20 05/02/18 04:40 92 7 55/31 (39) 23 05/02/18 04:30 100 05/02/18 04:30 42 25 59/35 (43) 26 05/02/18 04:27 43 27 65/34 (44) 39 05/02/18 04:15 100 44 84/44 (57) 90 05/02/18 04:00 99.5 99 45 95/50 (65) 97 05/02/18 04:00 95 05/02/18 04:00 84/44 05/02/18 04:00 42 Mechanical Ventilator 05/02/18 04:00 Mechanical Ventilator 05/02/18 04:00 100 05/02/18 03:45 95 44 91/44 (60) 95 05/02/18 03:30 98 45 92/46 (61) 95 05/02/18 03:15 98 45 94/47 (63) 94 05/02/18 03:00 102 45 99/47 (64) 97 05/02/18 03:00 99/47 05/02/18 03:00 42 Mechanical Ventilator 05/02/18 02:50 99 41 80 05/02/18 02:45 104 46 108/52 (70) 98 05/02/18 02:30 105 45 114/54 (74) 99 05/02/18 02:22 104 41 99 Mechanical Ventilator 80 05/02/18 02:15 101 42 127/64 (85) 99 05/02/18 02:06 96 43 100 Mechanical Ventilator 80 05/02/18 02:00 101/60 3/20/19 02:00 42 Mechanical Ventilator 05/02/18 02:00 101.0 96 43 103/53 (70) 100 05/02/18 01:45 97 43 103/53 (70) 100 05/02/18 01:30 96 43 80 05/02/18 01:30 97 43 104/51 (68) 100 05/02/18 01:15 97 43 100/53 (69) 100 05/02/18 01:00 98 43 98/51 (67) 100 05/02/18 01:00 100/53 05/02/18 01:00 42 Mechanical Ventilator 05/02/18 00:00 103 05/02/18 00:00 98.5 100 43 102/54 (70) 100 05/02/18 00:00 100 05/02/18 00:00 110/60 05/02/18 00:00 42 Mechanical Ventilator 05/02/18 00:00 Mechanical Ventilator 05/01/18 23:45 101 43 104/54 (71) 100 05/01/18 23:30 99 42 98/52 (67) 100 05/01/18 23:30 99 41 100 05/01/18 23:15 99 42 97/53 (68) 100 05/01/18 23:00 99 42 97/50 (66) 100 05/01/18 23:00 97/53 05/01/18 23:00 42 Mechanical Ventilator 05/01/18 22:45 99 42 100/55 (70) 100 05/01/18 22:30 99 42 104/52 (69) 100 05/01/18 22:15 99 41 100/57 (71) 100 05/01/18 22:05 105/53 05/01/18 22:00 100 41 105/53 (70) 100 05/01/18 22:00 100/57 05/01/18 22:00 42 Mechanical Ventilator 05/01/18 21:45 100 41 109/53 (71) 100 05/01/18 21:30 101 42 107/56 (73) 100 05/01/18 21:21 100 43 100 05/01/18 21:15 100 42 105/53 (70) 100 05/01/18 21:00 105/53 05/01/18 21:00 42 Mechanical Ventilator 05/01/18 21:00 101 42 105/55 (72) 100 05/01/18 20:45 102 42 106/53 (70) 100 05/01/18 20:30 103 42 107/55 (72) 100 05/01/18 20:15 104 41 111/53 (72) 100 05/01/18 20:00 Mechanical Ventilator 05/01/18 20:00 107 05/01/18 20:00 111/53 05/01/18 20:00 42 Mechanical Ventilator 05/01/18 20:00 98.4 105 42 113/57 (75) 100 05/01/18 20:00 100 05/01/18 19:23 110 43 100 Mechanical Ventilator 100 05/01/18 19:03 110 41 100 05/01/18 19:02 110 41 100 Mechanical Ventilator 100 05/01/18 19:00 109 36 148/70 (96) 100 05/01/18 18:45 111 42 135/63 (87) 100 05/01/18 18:30 111 40 149/60 (89) 95 05/01/18 18:15 110 40 145/61 (89) 95 05/01/18 18:00 110 40 143/60 (87) 95 05/01/18 17:55 102 40 125/56 (79) 98 05/01/18 17:50 76 36 89/40 (56) 84 05/01/18 17:45 67 29 83/41 (55) 79 05/01/18 17:40 67 26 78/38 (51) 72 05/01/18 17:30 71 28 84/39 (54) 73 05/01/18 17:25 65 27 78/35 (49) 77 05/01/18 17:15 71 38 70/33 (45) 89 05/01/18 17:05 94 47 85 05/01/18 17:00 86 44 94/42 (59) 95 05/01/18 16:45 86 40 92/46 (61) 95 05/01/18 16:30 98 44 101/48 (65) 97 05/01/18 16:15 100 44 108/53 (71) 97 05/01/18 16:00 98.5 99 44 114/52 (72) 96 05/01/18 16:00 80 05/01/18 16:00 Mechanical Ventilator 05/01/18 16:00 87 05/01/18 15:45 93 43 120/52 (74) 95 05/01/18 15:30 85 42 77/39 (52) 96 05/01/18 15:16 92 43 60 05/01/18 15:00 93 41 100/47 (64) 98 05/01/18 14:30 93 40 101/53 (69) 99 05/01/18 14:00 93 41 102/51 (68) 98 05/01/18 13:30 93 41 104/49 (67) 97 05/01/18 13:20 93 41 96 Mechanical Ventilator 70 05/01/18 13:20 93 41 70 05/01/18 13:00 90 42 114/54 (74) 100 05/01/18 13:00 40 Mechanical Ventilator 70 05/01/18 12:55 89 41 99 Mechanical Ventilator 80 05/01/18 12:30 90 41 106/51 (69) 99 05/01/18 12:00 98.5 89 41 101/51 (68) 100 05/01/18 12:00 Mechanical Ventilator 05/01/18 12:00 40 Mechanical Ventilator 80 05/01/18 12:00 80 05/01/18 12:00 90 Intake and Output 05/01/18 05/02/18 18:59 06:59 Intake Total 2567.530 ml 2158.603 ml Output Total 445 ml 160 ml Balance 2122.530 ml 1998.603 ml Free Water 150 ml 60 ml IV Total 2057.530 ml 1798.603 ml Tube Feeding 360 ml 300 ml Output Urine Total 445 ml 160 ml # Bowel Movements 1 Laboratory Tests 05/01/18 16:00: Arterial Blood pH 7.173*L, Arterial Blood Partial Pressure CO2 43.2, Arterial Blood Partial Pressure O2 61.9L, Arterial Blood HCO3 15.5*L, Arterial Blood Oxygen Saturation 88.7*L, Arterial Blood Base Excess -12.3*L, Aaron Test Positive 05/01/18 18:45: White Blood Count 14.4H, Red Blood Count 3.08L, Hemoglobin 9.6L, Hematocrit 29.4L, Mean Corpuscular Volume 95, Mean Corpuscular Hemoglobin 31.2H, Mean Corpuscular Hemoglobin Concent 32.7, Red Cell Distribution Width 13.7, Platelet Count 155, Mean Platelet Volume 6.7, Neutrophils (%) (Auto) , Lymphocytes (%) ( Auto) , Monocytes (%) (Auto) , Eosinophils (%) (Auto) , Basophils (%) (Auto) , Differential Total Cells Counted 100, Neutrophils % (Manual) 81H, Lymphocytes % (Manual) 5L, Monocytes % (Manual) 7, Eosinophils % (Manual) 1, Basophils % ( Manual) 0, Metamyelocytes % 1H, Band Neutrophils 5, Platelet Estimate Adequate, Platelet Morphology Normal, [place]ip Cells 1+, Crenated Cell 2+, Sodium Level 138, Potassium Level 4.3, Chloride Level 106, Carbon Dioxide Level 16L, Anion Gap 16H , Blood Urea Nitrogen 70H, Creatinine 4.6H, Estimat Glomerular Filtration Rate 13.2, Glucose Level 338#H, Lactic Acid Level 1.90, Calcium Level 8.2L, Total Bilirubin 1.0, Aspartate Amino Transf (AST/SGOT) 37, Alanine Aminotransferase ( ALT/SGPT) 16, Alkaline Phosphatase 73, Total Protein 5.7L, Albumin 2.5L, Globulin 3.2, Albumin/Globulin Ratio 0.8L 05/02/18 04:32: Arterial Blood pH 6.852*L, Arterial Blood Partial Pressure CO2 64.0*H, Arterial Blood Partial Pressure O2 34.4*L, Arterial Blood HCO3 11.0*L, Arterial Blood Oxygen Saturation 46.9*L, Arterial Blood Base Excess -22.2*L, Aaron Test Positive 05/02/18 05:00: White Blood Count 10.8, Red Blood Count 3.02L, Hemoglobin 9.4L, Hematocrit 29.7L , Mean Corpuscular Volume 98, Mean Corpuscular Hemoglobin 31.2H, Mean Corpuscular Hemoglobin Concent 31.8L, Red Cell Distribution Width 13.9, Platelet Count 129L, Mean Platelet Volume 7.5, Neutrophils (%) (Auto) 68.6, Lymphocytes (%) (Auto) 24.5, Monocytes (%) (Auto) 5.6, Eosinophils (%) (Auto) 0.5, Basophils (%) (Auto) 0.8, Sodium Level 139, Potassium Level 4.4, Chloride Level 108H, Carbon Dioxide Level 13L, Anion Gap 18H, Blood Urea Nitrogen 70H, Creatinine 4.9H, Estimat Glomerular Filtration Rate 12.3, Glucose Level 308H, Calcium Level 8.1L, Total Bilirubin 0.5, Aspartate Amino Transf (AST/SGOT) 49H, Alanine Aminotransferase (ALT/SGPT) 19, Alkaline Phosphatase 79, Total Protein 6.0L, Albumin 2.0L, Globulin 4.0, Uric Acid 6.6, Phosphorus Level 4.4, Magnesium Level 2.3, Troponin I 0.793H, Pro-B-Type Natriuretic Peptide 35370T, Phenytoin (Dilantin) Level 12.5 05/02/18 07:26: Arterial Blood pH 7.093*L, Arterial Blood Partial Pressure CO2 63.3*H, Arterial Blood Partial Pressure O2 45.4*L, Arterial Blood HCO3 18.9L, Arterial Blood Oxygen Saturation 77.5*L, Arterial Blood Base Excess -11.1*L, Aaron Test Positive Height (Feet): 5 Height (Inches): 10.00 Weight (Pounds): 165 General Appearance: lethargic EENT: normal ENT inspection Neck: supple Cardiovascular: normal rate Respiratory/Chest: decreased breath sounds Abdomen: normal bowel sounds, non tender, soft Tyler Jarrett MD May 02, 2018 11:58
--- NOTE | 2018-05-02 12:14 | Nephrology Progress Note ---
Assessment/Plan Problem List: (1) Renal failure (ARF), acute on chronic Assessment: Cr rising (2) Diabetic nephropathy (3) Epileptic seizure, generalized (4) Alcohol abuse (5) Anemia (6) Acute respiratory failure Assessment Renal failure- Acute on Chronic Cr rising Anemia HTN by History MJ abuse Etoh abuse DM / Proteinuria : Nephropathy Fever , etiology? Plan coded for low HR on pressors, being tapered Nepro feeding Adjust Acyclovir dose per Neuro request avoid Nephrotoxics keep BP and BS in check AMIRA kidney noted 2D echo noted Urine studies pending fluid challenge as needed Allopurinol DC Flomax- Has moralez monitor renal parameters K and Phos and Mag as needed monitor Dilantin level Per orders Subjective ROS Limited/Unobtainable: Yes Objective Objective Last 24 Hour Vital Signs Date Time Temp Pulse Resp B/P (MAP) Pulse Ox O2 Delivery O2 Flow Rate FiO2 05/02/18 11:30 98.7 94 30 109/62 (78) 93 05/02/18 11:24 109/62 05/02/18 11:00 71 29 77/46 (56) 82 05/02/18 10:45 97 30 110/62 (78) 92 05/02/18 10:30 100 31 111/64 (80) 95 05/02/18 10:19 89 30 92/51 (65) 85 05/02/18 10:15 89 30 90/50 (63) 83 05/02/18 10:00 100 30 108/56 (73) 88 05/02/18 09:45 104 30 110/59 (76) 85 05/02/18 09:30 116 30 139/62 (87) 88 05/02/18 09:21 118 30 100 05/02/18 09:15 120 30 141/66 (91) 89 05/02/18 09:00 128 30 172/75 (107) 87 05/02/18 08:45 122 30 149/68 (95) 94 05/02/18 08:30 116 29 133/63 (86) 88 05/02/18 08:15 117 30 131/64 (86) 88 05/02/18 08:00 125 05/02/18 08:00 98.5 123 30 122/62 (82) 90 05/02/18 08:00 Mechanical Ventilator 05/02/18 08:00 141/66 05/02/18 08:00 122/62 05/02/18 08:00 136/65 05/02/18 07:16 114 30 100 05/02/18 07:16 116 30 91 Mechanical Ventilator 15.0 100 05/02/18 07:16 116 30 91 Mechanical Ventilator 80 05/02/18 07:00 141/66 05/02/18 07:00 130/66 05/02/18 07:00 127 30 136/65 (88) 87 05/02/18 06:45 127 30 133/65 (87) 83 05/02/18 06:40 100 05/02/18 06:30 108 47 130/60 (83) 80 05/02/18 06:30 133/65 05/02/18 06:15 130/60 05/02/18 06:15 129 30 121/62 (81) 91 05/02/18 06:00 122 30 115/55 (75) 05/02/18 06:00 121/62 05/02/18 06:00 121/62 05/02/18 05:45 133 30 124/65 (84) 05/02/18 05:32 99.2 05/02/18 05:30 131 32 117/72 (87) 72 05/02/18 05:16 76/43 05/02/18 05:15 131 21 129/65 (86) 83 05/02/18 05:00 129/65 05/02/18 05:00 91 36 100 05/02/18 05:00 72 24 76/43 (54) 8 05/02/18 04:52 129 24 140/66 (90) 19 05/02/18 04:50 55/31 05/02/18 04:45 44 32 77/14 (35) 20 05/02/18 04:40 92 7 55/31 (39) 23 05/02/18 04:30 100 05/02/18 04:30 42 25 59/35 (43) 26 05/02/18 04:27 43 27 65/34 (44) 39 05/02/18 04:15 100 44 84/44 (57) 90 05/02/18 04:00 99.5 99 45 95/50 (65) 97 05/02/18 04:00 95 05/02/18 04:00 84/44 05/02/18 04:00 42 Mechanical Ventilator 05/02/18 04:00 Mechanical Ventilator 05/02/18 04:00 100 05/02/18 03:45 95 44 91/44 (60) 95 05/02/18 03:30 98 45 92/46 (61) 95 05/02/18 03:15 98 45 94/47 (63) 94 05/02/18 03:00 102 45 99/47 (64) 97 05/02/18 03:00 99/47 05/02/18 03:00 42 Mechanical Ventilator 05/02/18 02:50 99 41 80 05/02/18 02:45 104 46 108/52 (70) 98 05/02/18 02:30 105 45 114/54 (74) 99 05/02/18 02:22 104 41 99 Mechanical Ventilator 80 05/02/18 02:15 101 42 127/64 (85) 99 05/02/18 02:06 96 43 100 Mechanical Ventilator 80 05/02/18 02:00 101/60 05/02/18 02:00 42 Mechanical Ventilator 05/02/18 02:00 101.0 96 43 103/53 (70) 100 05/02/18 01:45 97 43 103/53 (70) 100 05/02/18 01:30 96 43 80 05/02/18 01:30 97 43 104/51 (68) 100 05/02/18 01:15 97 43 100/53 (69) 100 05/02/18 01:00 98 43 98/51 (67) 100 05/02/18 01:00 100/53 05/02/18 01:00 42 Mechanical Ventilator 05/02/18 00:00 103 05/02/18 00:00 98.5 100 43 102/54 (70) 100 05/02/18 00:00 100 05/02/18 00:00 110/60 05/02/18 00:00 42 Mechanical Ventilator 05/02/18 00:00 Mechanical Ventilator 05/01/18 23:45 101 43 104/54 (71) 100 05/01/18 23:30 99 42 98/52 (67) 100 05/01/18 23:30 99 41 100 05/01/18 23:15 99 42 97/53 (68) 100 05/01/18 23:00 99 42 97/50 (66) 100 05/01/18 23:00 97/53 3/19/19 23:00 42 Mechanical Ventilator 05/01/18 22:45 99 42 100/55 (70) 100 05/01/18 22:30 99 42 104/52 (69) 100 05/01/18 22:15 99 41 100/57 (71) 100 05/01/18 22:05 105/53 05/01/18 22:00 100 41 105/53 (70) 100 05/01/18 22:00 100/57 05/01/18 22:00 42 Mechanical Ventilator 05/01/18 21:45 100 41 109/53 (71) 100 05/01/18 21:30 101 42 107/56 (73) 100 05/01/18 21:21 100 43 100 05/01/18 21:15 100 42 105/53 (70) 100 05/01/18 21:00 105/53 05/01/18 21:00 42 Mechanical Ventilator 05/01/18 21:00 101 42 105/55 (72) 100 05/01/18 20:45 102 42 106/53 (70) 100 05/01/18 20:30 103 42 107/55 (72) 100 05/01/18 20:15 104 41 111/53 (72) 100 05/01/18 20:00 Mechanical Ventilator 05/01/18 20:00 107 05/01/18 20:00 111/53 05/01/18 20:00 42 Mechanical Ventilator 05/01/18 20:00 98.4 105 42 113/57 (75) 100 05/01/18 20:00 100 05/01/18 19:23 110 43 100 Mechanical Ventilator 100 05/01/18 19:03 110 41 100 05/01/18 19:02 110 41 100 Mechanical Ventilator 100 05/01/18 19:00 109 36 148/70 (96) 100 05/01/18 18:45 111 42 135/63 (87) 100 05/01/18 18:30 111 40 149/60 (89) 95 05/01/18 18:15 110 40 145/61 (89) 95 05/01/18 18:00 110 40 143/60 (87) 95 05/01/18 17:55 102 40 125/56 (79) 98 05/01/18 17:50 76 36 89/40 (56) 84 05/01/18 17:45 67 29 83/41 (55) 79 05/01/18 17:40 67 26 78/38 (51) 72 05/01/18 17:30 71 28 84/39 (54) 73 05/01/18 17:25 65 27 78/35 (49) 77 05/01/18 17:15 71 38 70/33 (45) 89 05/01/18 17:05 94 47 85 05/01/18 17:00 86 44 94/42 (59) 95 05/01/18 16:45 86 40 92/46 (61) 95 05/01/18 16:30 98 44 101/48 (65) 97 05/01/18 16:15 100 44 108/53 (71) 97 05/01/18 16:00 98.5 99 44 114/52 (72) 96 05/01/18 16:00 80 05/01/18 16:00 Mechanical Ventilator 05/01/18 16:00 87 05/01/18 15:45 93 43 120/52 (74) 95 05/01/18 15:30 85 42 77/39 (52) 96 05/01/18 15:16 92 43 60 05/01/18 15:00 93 41 100/47 (64) 98 05/01/18 14:30 93 40 101/53 (69) 99 05/01/18 14:00 93 41 102/51 (68) 98 05/01/18 13:30 93 41 104/49 (67) 97 05/01/18 13:20 93 41 96 Mechanical Ventilator 70 05/01/18 13:20 93 41 70 05/01/18 13:00 90 42 114/54 (74) 100 05/01/18 13:00 40 Mechanical Ventilator 70 05/01/18 12:55 89 41 99 Mechanical Ventilator 80 05/01/18 12:30 90 41 106/51 (69) 99 Intake and Output 05/01/18 05/02/18 18:59 06:59 Intake Total 2567.530 ml 2158.603 ml Output Total 445 ml 160 ml Balance 2122.530 ml 1998.603 ml Free Water 150 ml 60 ml IV Total 2057.530 ml 1798.603 ml Tube Feeding 360 ml 300 ml Output Urine Total 445 ml 160 ml # Bowel Movements 1 Laboratory Tests 05/01/18 16:00: Arterial Blood pH 7.173*L, Arterial Blood Partial Pressure CO2 43.2, Arterial Blood Partial Pressure O2 61.9L, Arterial Blood HCO3 15.5*L, Arterial Blood Oxygen Saturation 88.7*L, Arterial Blood Base Excess -12.3*L, Aaron Test Positive 05/01/18 18:45: White Blood Count 14.4H, Red Blood Count 3.08L, Hemoglobin 9.6L, Hematocrit 29.4L, Mean Corpuscular Volume 95, Mean Corpuscular Hemoglobin 31.2H, Mean Corpuscular Hemoglobin Concent 32.7, Red Cell Distribution Width 13.7, Platelet Count 155, Mean Platelet Volume 6.7, Neutrophils (%) (Auto) , Lymphocytes (%) ( Auto) , Monocytes (%) (Auto) , Eosinophils (%) (Auto) , Basophils (%) (Auto) , Differential Total Cells Counted 100, Neutrophils % (Manual) 81H, Lymphocytes % (Manual) 5L, Monocytes % (Manual) 7, Eosinophils % (Manual) 1, Basophils % ( Manual) 0, Metamyelocytes % 1H, Band Neutrophils 5, Platelet Estimate Adequate, Platelet Morphology Normal, [place] Cells 1+, Crenated Cell 2+, Sodium Level 138, Potassium Level 4.3, Chloride Level 106, Carbon Dioxide Level 16L, Anion Gap 16H , Blood Urea Nitrogen 70H, Creatinine 4.6H, Estimat Glomerular Filtration Rate 13.2, Glucose Level 338#H, Lactic Acid Level 1.90, Calcium Level 8.2L, Total Bilirubin 1.0, Aspartate Amino Transf (AST/SGOT) 37, Alanine Aminotransferase ( ALT/SGPT) 16, Alkaline Phosphatase 73, Total Protein 5.7L, Albumin 2.5L, Globulin 3.2, Albumin/Globulin Ratio 0.8L 05/02/18 04:32: Arterial Blood pH 6.852*L, Arterial Blood Partial Pressure CO2 64.0*H, Arterial Blood Partial Pressure O2 34.4*L, Arterial Blood HCO3 11.0*L, Arterial Blood Oxygen Saturation 46.9*L, Arterial Blood Base Excess -22.2*L, Aaron Test Positive 05/02/18 05:00: White Blood Count 10.8, Red Blood Count 3.02L, Hemoglobin 9.4L, Hematocrit 29.7L , Mean Corpuscular Volume 98, Mean Corpuscular Hemoglobin 31.2H, Mean Corpuscular Hemoglobin Concent 31.8L, Red Cell Distribution Width 13.9, Platelet Count 129L, Mean Platelet Volume 7.5, Neutrophils (%) (Auto) 68.6, Lymphocytes (%) (Auto) 24.5, Monocytes (%) (Auto) 5.6, Eosinophils (%) (Auto) 0.5, Basophils (%) (Auto) 0.8, Sodium Level 139, Potassium Level 4.4, Chloride Level 108H, Carbon Dioxide Level 13L, Anion Gap 18H, Blood Urea Nitrogen 70H, Creatinine 4.9H, Estimat Glomerular Filtration Rate 12.3, Glucose Level 308H, Calcium Level 8.1L, Total Bilirubin 0.5, Aspartate Amino Transf (AST/SGOT) 49H, Alanine Aminotransferase (ALT/SGPT) 19, Alkaline Phosphatase 79, Total Protein 6.0L, Albumin 2.0L, Globulin 4.0, Uric Acid 6.6, Phosphorus Level 4.4, Magnesium Level 2.3, Troponin I 0.793H, Pro-B-Type Natriuretic Peptide 80584V, Phenytoin (Dilantin) Level 12.5 05/02/18 07:26: Arterial Blood pH 7.093*L, Arterial Blood Partial Pressure CO2 63.3*H, Arterial Blood Partial Pressure O2 45.4*L, Arterial Blood HCO3 18.9L, Arterial Blood Oxygen Saturation 77.5*L, Arterial Blood Base Excess -11.1*L, Aaron Test Positive Height (Feet): 5 Height (Inches): 10.00 Weight (Pounds): 165 General Appearance: no apparent distress EENT: other - vented Cardiovascular: tachycardia Respiratory/Chest: decreased breath sounds Abdomen: distended Deon Rojas MD May 02, 2018 12:14
--- NOTE | 2018-05-02 12:19 | Infectious Diseases Prog Note ---
Assessment/Plan Assessment/Plan A 1. aspiration pneumonia 2. Sepsis, Septic shock 3.Hypoxemic respiratory failure 4. seizures 5. Acute renal failure 6. alcohol withdrawal 7. Anoxic encephalopathy 8.severe anemia 9. ARDS 10. cardiopulmonary arrest P 1. Continue Zosyn & Acyclovir 2. Add IV Vancomycin 3.repeat sputum culture Subjective ROS Limited/Unobtainable: Yes Cardiovascular: Reports: other - was coded today Allergies: Coded Allergies: No Known Allergies (Unverified , 04/24/18) Objective Vital Signs Last 24 Hour Vital Signs Date Time Temp Pulse Resp B/P (MAP) Pulse Ox O2 Delivery O2 Flow Rate FiO2 05/02/18 12:00 100 05/02/18 11:30 98.7 94 30 109/62 (78) 93 05/02/18 11:24 109/62 05/02/18 11:00 71 29 77/46 (56) 82 05/02/18 10:45 97 30 110/62 (78) 92 05/02/18 10:30 100 31 111/64 (80) 95 05/02/18 10:19 89 30 92/51 (65) 85 05/02/18 10:15 89 30 90/50 (63) 83 05/02/18 10:00 100 30 108/56 (73) 88 05/02/18 09:45 104 30 110/59 (76) 85 05/02/18 09:30 116 30 139/62 (87) 88 05/02/18 09:21 118 30 100 05/02/18 09:15 120 30 141/66 (91) 89 05/02/18 09:00 128 30 172/75 (107) 87 05/02/18 08:45 122 30 149/68 (95) 94 05/02/18 08:30 116 29 133/63 (86) 88 05/02/18 08:15 117 30 131/64 (86) 88 05/02/18 08:00 125 05/02/18 08:00 98.5 123 30 122/62 (82) 90 05/02/18 08:00 Mechanical Ventilator 05/02/18 08:00 141/66 05/02/18 08:00 122/62 05/02/18 08:00 136/65 05/02/18 07:16 114 30 100 05/02/18 07:16 116 30 91 Mechanical Ventilator 15.0 100 3/20/19 07:16 116 30 91 Mechanical Ventilator 80 05/02/18 07:00 141/66 05/02/18 07:00 130/66 05/02/18 07:00 127 30 136/65 (88) 87 05/02/18 06:45 127 30 133/65 (87) 83 05/02/18 06:40 100 05/02/18 06:30 108 47 130/60 (83) 80 05/02/18 06:30 133/65 05/02/18 06:15 130/60 05/02/18 06:15 129 30 121/62 (81) 91 05/02/18 06:00 122 30 115/55 (75) 05/02/18 06:00 121/62 05/02/18 06:00 121/62 05/02/18 05:45 133 30 124/65 (84) 05/02/18 05:32 99.2 05/02/18 05:30 131 32 117/72 (87) 72 05/02/18 05:16 76/43 05/02/18 05:15 131 21 129/65 (86) 83 05/02/18 05:00 129/65 05/02/18 05:00 91 36 100 05/02/18 05:00 72 24 76/43 (54) 8 05/02/18 04:52 129 24 140/66 (90) 19 05/02/18 04:50 55/31 05/02/18 04:45 44 32 77/14 (35) 20 05/02/18 04:40 92 7 55/31 (39) 23 05/02/18 04:30 100 05/02/18 04:30 42 25 59/35 (43) 26 05/02/18 04:27 43 27 65/34 (44) 39 05/02/18 04:15 100 44 84/44 (57) 90 05/02/18 04:00 99.5 99 45 95/50 (65) 97 05/02/18 04:00 95 05/02/18 04:00 84/44 05/02/18 04:00 42 Mechanical Ventilator 05/02/18 04:00 Mechanical Ventilator 05/02/18 04:00 100 05/02/18 03:45 95 44 91/44 (60) 95 05/02/18 03:30 98 45 92/46 (61) 95 05/02/18 03:15 98 45 94/47 (63) 94 05/02/18 03:00 102 45 99/47 (64) 97 05/02/18 03:00 99/47 05/02/18 03:00 42 Mechanical Ventilator 05/02/18 02:50 99 41 80 05/02/18 02:45 104 46 108/52 (70) 98 05/02/18 02:30 105 45 114/54 (74) 99 05/02/18 02:22 104 41 99 Mechanical Ventilator 80 05/02/18 02:15 101 42 127/64 (85) 99 05/02/18 02:06 96 43 100 Mechanical Ventilator 80 05/02/18 02:00 101/60 05/02/18 02:00 42 Mechanical Ventilator 05/02/18 02:00 101.0 96 43 103/53 (70) 100 05/02/18 01:45 97 43 103/53 (70) 100 05/02/18 01:30 96 43 80 05/02/18 01:30 97 43 104/51 (68) 100 05/02/18 01:15 97 43 100/53 (69) 100 05/02/18 01:00 98 43 98/51 (67) 100 05/02/18 01:00 100/53 05/02/18 01:00 42 Mechanical Ventilator 05/02/18 00:00 103 05/02/18 00:00 98.5 100 43 102/54 (70) 100 05/02/18 00:00 100 05/02/18 00:00 110/60 05/02/18 00:00 42 Mechanical Ventilator 05/02/18 00:00 Mechanical Ventilator 05/01/18 23:45 101 43 104/54 (71) 100 05/01/18 23:30 99 42 98/52 (67) 100 05/01/18 23:30 99 41 100 05/01/18 23:15 99 42 97/53 (68) 100 05/01/18 23:00 99 42 97/50 (66) 100 05/01/18 23:00 97/53 05/01/18 23:00 42 Mechanical Ventilator 05/01/18 22:45 99 42 100/55 (70) 100 05/01/18 22:30 99 42 104/52 (69) 100 05/01/18 22:15 99 41 100/57 (71) 100 05/01/18 22:05 105/53 05/01/18 22:00 100 41 105/53 (70) 100 05/01/18 22:00 100/57 05/01/18 22:00 42 Mechanical Ventilator 05/01/18 21:45 100 41 109/53 (71) 100 05/01/18 21:30 101 42 107/56 (73) 100 05/01/18 21:21 100 43 100 05/01/18 21:15 100 42 105/53 (70) 100 05/01/18 21:00 105/53 05/01/18 21:00 42 Mechanical Ventilator 05/01/18 21:00 101 42 105/55 (72) 100 05/01/18 20:45 102 42 106/53 (70) 100 05/01/18 20:30 103 42 107/55 (72) 100 05/01/18 20:15 104 41 111/53 (72) 100 05/01/18 20:00 Mechanical Ventilator 05/01/18 20:00 107 05/01/18 20:00 111/53 05/01/18 20:00 42 Mechanical Ventilator 05/01/18 20:00 98.4 105 42 113/57 (75) 100 05/01/18 20:00 100 05/01/18 19:23 110 43 100 Mechanical Ventilator 100 05/01/18 19:03 110 41 100 05/01/18 19:02 110 41 100 Mechanical Ventilator 100 05/01/18 19:00 109 36 148/70 (96) 100 05/01/18 18:45 111 42 135/63 (87) 100 05/01/18 18:30 111 40 149/60 (89) 95 05/01/18 18:15 110 40 145/61 (89) 95 05/01/18 18:00 110 40 143/60 (87) 95 05/01/18 17:55 102 40 125/56 (79) 98 05/01/18 17:50 76 36 89/40 (56) 84 05/01/18 17:45 67 29 83/41 (55) 79 05/01/18 17:40 67 26 78/38 (51) 72 05/01/18 17:30 71 28 84/39 (54) 73 05/01/18 17:25 65 27 78/35 (49) 77 05/01/18 17:15 71 38 70/33 (45) 89 05/01/18 17:05 94 47 85 05/01/18 17:00 86 44 94/42 (59) 95 05/01/18 16:45 86 40 92/46 (61) 95 05/01/18 16:30 98 44 101/48 (65) 97 05/01/18 16:15 100 44 108/53 (71) 97 05/01/18 16:00 98.5 99 44 114/52 (72) 96 05/01/18 16:00 80 05/01/18 16:00 Mechanical Ventilator 05/01/18 16:00 87 05/01/18 15:45 93 43 120/52 (74) 95 05/01/18 15:30 85 42 77/39 (52) 96 05/01/18 15:16 92 43 60 05/01/18 15:00 93 41 100/47 (64) 98 05/01/18 14:30 93 40 101/53 (69) 99 05/01/18 14:00 93 41 102/51 (68) 98 05/01/18 13:30 93 41 104/49 (67) 97 05/01/18 13:20 93 41 96 Mechanical Ventilator 70 05/01/18 13:20 93 41 70 05/01/18 13:00 90 42 114/54 (74) 100 05/01/18 13:00 40 Mechanical Ventilator 70 05/01/18 12:55 89 41 99 Mechanical Ventilator 80 05/01/18 12:30 90 41 106/51 (69) 99 Height (Feet): 5 Height (Inches): 10.00 Weight (Pounds): 165 HEENT: mucous membranes moist, other - orally intubated Respiratory/Chest: lungs clear, other - on ventilator Cardiovascular: tachycardia, other - PICC line, femoral line was removed Abdomen: soft, non tender, other - NG tube Extremities: no edema Neurologic/Psychiatric: unresponsiveness Laboratory Tests Test 05/01/18 16:00 05/01/18 18:45 05/02/18 04:32 05/02/18 05:00 Arterial Blood pH 7.173 (7.350-7.450) 6.852 (7.350-7.450) Arterial Blood Partial Pressure CO2 43.2 mmHg (35.0-45.0) 64.0 mmHg (35.0-45.0) *H Arterial Blood Partial Pressure O2 61.9 mmHg (75.0-100.0) L 34.4 mmHg (75.0-100.0) Arterial Blood HCO3 15.5 mmol/L (22.0-26.0) *L 11.0 mmol/L (22.0-26.0) *L Arterial Blood Oxygen Saturation 88.7 % (95-100) *L 46.9 % (95-100) *L Arterial Blood Base Excess -12.3 (-2-2) *L -22.2 (-2-2) *L Aaron Test Positive Positive White Blood Count 14.4 K/UL (4.8-10.8) H 10.8 K/UL (4.8-10.8) Red Blood Count 3.08 M/UL (4.70-6.10) L 3.02 M/UL (4.70-6.10) L Hemoglobin 9.6 G/DL (14.2-18.0) L 9.4 G/DL (14.2-18.0) L Hematocrit 29.4 % (42.0-52.0) L 29.7 % (42.0-52.0) L Mean Corpuscular Volume 95 FL (80-99) 98 FL (80-99) Mean Corpuscular Hemoglobin 31.2 PG (27.0-31.0) H 31.2 PG (27.0-31.0) H Mean Corpuscular Hemoglobin Concent 32.7 G/DL (32.0-36.0) 31.8 G/DL (32.0-36.0) L Red Cell Distribution Width 13.7 % (11.6-14.8) 13.9 % (11.6-14.8) Platelet Count 155 K/UL (150-450) 129 K/UL (150-450) L Mean Platelet Volume 6.7 FL (6.5-10.1) 7.5 FL (6.5-10.1) Neutrophils (%) (Auto) % (45.0-75.0) 68.6 % (45.0-75.0) Lymphocytes (%) (Auto) % (20.0-45.0) 24.5 % (20.0-45.0) Monocytes (%) (Auto) % (1.0-10.0) 5.6 % (1.0-10.0) Eosinophils (%) (Auto) % (0.0-3.0) 0.5 % (0.0-3.0) Basophils (%) (Auto) % (0.0-2.0) 0.8 % (0.0-2.0) Differential Total Cells Counted 100 Neutrophils % (Manual) 81 % (45-75) H Lymphocytes % (Manual) 5 % (20-45) L Monocytes % (Manual) 7 % (1-10) Eosinophils % (Manual) 1 % (0-3) Basophils % (Manual) 0 % (0-2) Metamyelocytes % 1 % (0-0) H Band Neutrophils 5 % (0-8) Platelet Estimate Adequate Platelet Morphology Normal Rip Cells 1+ Crenated Cell 2+ Sodium Level 138 MMOL/L (136-145) 139 MMOL/L (136-145) Potassium Level 4.3 MMOL/L (3.5-5.1) 4.4 MMOL/L (3.5-5.1) Chloride Level 106 MMOL/L (98-107) 108 MMOL/L (98-107) H Carbon Dioxide Level 16 MMOL/L (21-32) L 13 MMOL/L (21-32) L Anion Gap 16 mmol/L (5-15) H 18 mmol/L (5-15) H Blood Urea Nitrogen 70 mg/dL (7-18) H 70 mg/dL (7-18) H Creatinine 4.6 MG/DL (0.55-1.30) H 4.9 MG/DL (0.55-1.30) H Estimat Glomerular Filtration Rate 13.2 mL/min (>60) 12.3 mL/min (>60) Glucose Level 338 MG/DL (74-106) #H 308 MG/DL (74-106) H Lactic Acid Level 1.90 mmol/L (0.4-2.0) Calcium Level 8.2 MG/DL (8.5-10.1) L 8.1 MG/DL (8.5-10.1) L Total Bilirubin 1.0 MG/DL (0.2-1.0) 0.5 MG/DL (0.2-1.0) Aspartate Amino Transf (AST/SGOT) 37 U/L (15-37) 49 U/L (15-37) H Alanine Aminotransferase (ALT/SGPT) 16 U/L (12-78) 19 U/L (12-78) Alkaline Phosphatase 73 U/L (46-116) 79 U/L (46-116) Total Protein 5.7 G/DL (6.4-8.2) L 6.0 G/DL (6.4-8.2) L Albumin 2.5 G/DL (3.4-5.0) L 2.0 G/DL (3.4-5.0) L Globulin 3.2 g/dL 4.0 g/dL Albumin/Globulin Ratio 0.8 (1.0-2.7) L Uric Acid 6.6 MG/DL (2.6-7.2) Phosphorus Level 4.4 MG/DL (2.5-4.9) Magnesium Level 2.3 MG/DL (1.8-2.4) Troponin I 0.793 ng/mL (0.000-0.056) Pro-B-Type Natriuretic Peptide 31250 pg/mL (0-125) H Phenytoin (Dilantin) Level 12.5 ug/mL (10-20) Test 05/02/18 07:26 Arterial Blood pH 7.093 (7.350-7.450) Arterial Blood Partial Pressure CO2 63.3 mmHg (35.0-45.0) *H Arterial Blood Partial Pressure O2 45.4 mmHg (75.0-100.0) Arterial Blood HCO3 18.9 mmol/L (22.0-26.0) L Arterial Blood Oxygen Saturation 77.5 % (95-100) *L Arterial Blood Base Excess -11.1 (-2-2) *L Aaron Test Positive Current Medications Medications (Trade) Dose Ordered Sig/Bj Route PRN Reason Start Time Stop Time Status Last Admin Dose Admin Acetaminophen (Tylenol) 650 mg Q4H PRN NG Mild Pain/Temp > 100.5 05/01/18 15:30 05/27/18 21:29 05/02/18 02:43 Acetaminophen (Tylenol) 650 mg Q4H PRN RECTAL Mild Pain (Pain Scale 1-3) 04/27/18 21:30 05/27/18 21:29 04/28/18 14:39 Acyclovir 800 mg/ Sodium Chloride 275 ml @ 275 mls/hr Q24HRS IV 05/02/18 10:00 05/29/18 09:59 05/02/18 11:17 Albuterol/ Ipratropium (Albuterol/ Ipratropium) 3 ml Q4H PRN HHN Shortness of Breath 04/27/18 21:45 05/02/18 17:44 Albuterol/ Ipratropium (Albuterol/ Ipratropium) 3 ml Q6HRT HHN 04/28/18 01:00 05/02/18 18:59 05/02/18 09:08 Allopurinol (Zyloprim) 200 mg DAILY NG 04/29/18 09:00 05/28/18 08:59 05/02/18 10:17 Chlorhexidine Gluconate (Lidia-Hex 2%) 1 applic DAILY@2000 TOPIC 05/01/18 20:00 05/31/18 19:59 05/01/18 20:41 Clonidine HCl (Catapres Tab) 0.1 mg Q4H PRN NG bp over 160 syst 05/01/18 15:30 05/26/18 21:29 Dextrose (Dextrose 50%) 25 ml Q30M PRN IV Hypoglycemia 04/29/18 07:30 05/29/18 07:29 Dextrose (Dextrose 50%) 50 ml Q30M PRN IV Hypoglycemia 04/29/18 07:30 05/29/18 07:29 Dopamine HCl/ Dextrose 250 ml @ 0 mls/hr Q24H IV 05/02/18 04:45 06/01/18 04:44 05/02/18 05:16 Folic Acid (Folate) 1 mg DAILY NG 05/02/18 09:00 06/01/18 08:59 05/02/18 10:18 Heparin Sodium (Porcine) (Heparin 5000 units/ml) 5,000 units EVERY 12 HOURS SUBQ 04/28/18 09:00 05/27/18 20:59 05/02/18 10:23 Heparin Sodium/ Sodium Chloride (Heparin 1000 units/500ml Premix) 1,000 unit ONCE PRN IV picc 05/02/18 08:30 05/02/18 23:59 Insulin Aspart (NovoLOG) EVERY 4 HOURS SUBQ 04/29/18 09:00 05/29/18 08:59 05/02/18 10:40 Insulin Detemir (Levemir) 15 units BID SUBQ 05/02/18 09:00 05/29/18 08:59 05/02/18 10:26 Iron Sucrose 100 mg/Sodium Chloride 60 ml @ 240 mls/hr BEDTIME IV 04/30/18 21:00 05/04/18 21:14 05/01/18 20:41 Levetiracetam 250 mg/Sodium Chloride 112.5 ml @ 450 mls/hr Q12HR IV 04/27/18 22:00 05/27/18 21:59 05/02/18 09:06 Lidocaine HCl (Xylocaine 1% 30ml) 30 ml ONCE PRN INJ picc 05/02/18 08:30 05/02/18 23:59 Lorazepam (Ativan 2mg/ml 1ml) 2 mg Q4H PRN IV For Anxiety 04/30/18 09:45 05/07/18 09:44 05/01/18 03:38 Metoclopramide HCl (Reglan) 10 mg Q6H PRN IVP Nausea & Vomiting 04/27/18 21:30 05/27/18 21:29 Midazolam HCl 100 ml @ 2 mls/hr Q24H IVPB 04/28/18 16:15 05/05/18 16:14 04/30/18 19:55 Midodrine (Pro-Amatine) 2.5 mg THREE TIMES A DAY NG 05/02/18 09:00 05/31/18 17:59 05/02/18 10:17 Multivitamins (Multivitamins) 1 tab DAILY ORAL 05/02/18 09:00 06/01/18 08:59 05/02/18 10:17 Norepinephrine Bitartrate 8 mg/ Dextrose 508 ml @ 0 mls/hr Q24H IV 04/29/18 07:45 05/29/18 07:44 05/02/18 11:24 Ondansetron HCl (Zofran) 4 mg Q6H PRN IVP Nausea & Vomiting 04/27/18 21:30 05/27/18 21:29 Pantoprazole (Protonix) 40 mg EVERY 12 HOURS IVP 04/28/18 09:00 05/25/18 20:59 05/02/18 10:18 Phenytoin 300 mg/ Sodium Chloride 116 ml @ 120 mls/hr DAILY IVPB 04/28/18 09:00 05/28/18 08:59 05/02/18 10:18 Piperacillin Sod/ Tazobactam Sod 3.375 gm/Sodium Chloride 110 ml @ 27.5 mls/hr Q12H IVPB 04/29/18 00:00 05/06/18 00:00 05/02/18 00:34 Sodium Bicarbonate 150 ml/Dextrose/ Electrolytes 1,150 ml @ 100 mls/hr [id number] IV 05/01/18 19:00 05/31/18 18:59 05/02/18 07:53 Thiamine HCl 100 mg/Sodium Chloride 56 ml @ 112 mls/hr Q24H IVPB 04/29/18 15:00 05/29/18 14:59 05/01/18 15:52 Vasopressin 100 units/Sodium Chloride 100 ml @ 2.4 mls/hr Q24H IV 05/01/18 19:00 05/31/18 18:59 05/02/18 04:50 James Ortiz MD May 02, 2018 12:19
--- NOTE | 2018-05-02 12:20 | NUR ---
NURSE NOTES: Dr. Ortiz in facility, saw and assessed patient, updated on patient's status.
--- NOTE | 2018-05-02 12:23 | General Progress Note ---
Assessment/Plan Assessment/Plan Assessment and Recs: # Anemia of chronic disease due to underlying chronic medical issues, multifactorial --> in addition due to KELLY, have started iron on 04/30 --> Anemia workup has been reviewed, ferritin 373 --> No evidence of hemolysis is noted, peripheral smear has been reviewed. --> Hgb goal >7. Transfuse prn. --> Given 2 units prbc on 04/25/18, had a reaction, transfusion reaction ordered --> Medications have been reviewed --> gi recs appreciated # Anemia due to alcohol withdrawal/myelosuppresion --> Monitor for withdrawal symptoms --> thimaine, folic acid, ivf, ativan prn ordered # Leukocytosis/Elevated white blood cell count, unspecified likely related to underlying stress reaction, smoking, or underlying infection (especially if bandemia is noted) --> have reviewed peripheral smear and bandemia/neutrophilia noted --> continue antibiotics if they have been started by ID team --> monitor for resolution --> WBC trend: 16-->15-->18-->14-->10 # Thrombocutopenia due to etoh abise --> trend 114k # Alcohol abuse --> rec cessation # Epileptic seizure, generalized --> as per neuro # Intubated in ICU # Drug abuse # transfse to higher level of care The timing of this note does not necessarily reflect the time of the patient was seen. Greatly appreciate consultation! Subjective Allergies: Coded Allergies: No Known Allergies (Unverified , 04/24/18) Subjective 04/26: awake, comfortable, no acute distress. 04/27: Pt was transferred to ICU, intubated, wbc 16 04/29: seen by bedside, comfortable, wbc 15 04/30: started on iv iron, no fev, chills noted 05/01: On vent, comatose, wbc trending down 05/02: seen by bedside, s/p intubated, cbc reviewed. Objective Last 24 Hour Vital Signs Date Time Temp Pulse Resp B/P (MAP) Pulse Ox O2 Delivery O2 Flow Rate FiO2 05/02/18 12:00 100 05/02/18 11:30 98.7 94 30 109/62 (78) 93 05/02/18 11:24 109/62 05/02/18 11:00 71 29 77/46 (56) 82 05/02/18 10:45 97 30 110/62 (78) 92 05/02/18 10:30 115 32 100 05/02/18 10:30 100 31 111/64 (80) 95 05/02/18 10:19 89 30 92/51 (65) 85 05/02/18 10:15 89 30 90/50 (63) 83 05/02/18 10:00 100 30 108/56 (73) 88 05/02/18 09:45 104 30 110/59 (76) 85 05/02/18 09:30 116 30 139/62 (87) 88 05/02/18 09:21 118 30 100 05/02/18 09:15 120 30 141/66 (91) 89 05/02/18 09:00 128 30 172/75 (107) 87 05/02/18 08:45 122 30 149/68 (95) 94 05/02/18 08:30 116 29 133/63 (86) 88 05/02/18 08:15 117 30 131/64 (86) 88 05/02/18 08:00 125 05/02/18 08:00 98.5 123 30 122/62 (82) 90 05/02/18 08:00 Mechanical Ventilator 05/02/18 08:00 141/66 05/02/18 08:00 122/62 05/02/18 08:00 136/65 05/02/18 07:16 114 30 100 05/02/18 07:16 116 30 91 Mechanical Ventilator 15.0 100 05/02/18 07:16 116 30 91 Mechanical Ventilator 80 05/02/18 07:00 141/66 05/02/18 07:00 130/66 05/02/18 07:00 127 30 136/65 (88) 87 05/02/18 06:45 127 30 133/65 (87) 83 05/02/18 06:40 100 05/02/18 06:30 108 47 130/60 (83) 80 05/02/18 06:30 133/65 05/02/18 06:15 130/60 05/02/18 06:15 129 30 121/62 (81) 91 05/02/18 06:00 122 30 115/55 (75) 05/02/18 06:00 121/62 3/20/19 06:00 121/62 05/02/18 05:45 133 30 124/65 (84) 05/02/18 05:32 99.2 05/02/18 05:30 131 32 117/72 (87) 72 05/02/18 05:16 76/43 05/02/18 05:15 131 21 129/65 (86) 83 05/02/18 05:00 129/65 05/02/18 05:00 91 36 100 05/02/18 05:00 72 24 76/43 (54) 8 05/02/18 04:52 129 24 140/66 (90) 19 05/02/18 04:50 55/31 05/02/18 04:45 44 32 77/14 (35) 20 05/02/18 04:40 92 7 55/31 (39) 23 05/02/18 04:30 100 05/02/18 04:30 42 25 59/35 (43) 26 05/02/18 04:27 43 27 65/34 (44) 39 05/02/18 04:15 100 44 84/44 (57) 90 05/02/18 04:00 99.5 99 45 95/50 (65) 97 05/02/18 04:00 95 05/02/18 04:00 84/44 05/02/18 04:00 42 Mechanical Ventilator 05/02/18 04:00 Mechanical Ventilator 05/02/18 04:00 100 05/02/18 03:45 95 44 91/44 (60) 95 05/02/18 03:30 98 45 92/46 (61) 95 05/02/18 03:15 98 45 94/47 (63) 94 05/02/18 03:00 102 45 99/47 (64) 97 05/02/18 03:00 99/47 05/02/18 03:00 42 Mechanical Ventilator 05/02/18 02:50 99 41 80 05/02/18 02:45 104 46 108/52 (70) 98 05/02/18 02:30 105 45 114/54 (74) 99 05/02/18 02:22 104 41 99 Mechanical Ventilator 80 05/02/18 02:15 101 42 127/64 (85) 99 05/02/18 02:06 96 43 100 Mechanical Ventilator 80 05/02/18 02:00 101/60 05/02/18 02:00 42 Mechanical Ventilator 05/02/18 02:00 101.0 96 43 103/53 (70) 100 05/02/18 01:45 97 43 103/53 (70) 100 05/02/18 01:30 96 43 80 05/02/18 01:30 97 43 104/51 (68) 100 05/02/18 01:15 97 43 100/53 (69) 100 05/02/18 01:00 98 43 98/51 (67) 100 05/02/18 01:00 100/53 05/02/18 01:00 42 Mechanical Ventilator 05/02/18 00:00 103 05/02/18 00:00 98.5 100 43 102/54 (70) 100 05/02/18 00:00 100 05/02/18 00:00 110/60 05/02/18 00:00 42 Mechanical Ventilator 05/02/18 00:00 Mechanical Ventilator 05/01/18 23:45 101 43 104/54 (71) 100 05/01/18 23:30 99 42 98/52 (67) 100 05/01/18 23:30 99 41 100 05/01/18 23:15 99 42 97/53 (68) 100 05/01/18 23:00 99 42 97/50 (66) 100 05/01/18 23:00 97/53 05/01/18 23:00 42 Mechanical Ventilator 05/01/18 22:45 99 42 100/55 (70) 100 05/01/18 22:30 99 42 104/52 (69) 100 05/01/18 22:15 99 41 100/57 (71) 100 05/01/18 22:05 105/53 05/01/18 22:00 100 41 105/53 (70) 100 05/01/18 22:00 100/57 05/01/18 22:00 42 Mechanical Ventilator 05/01/18 21:45 100 41 109/53 (71) 100 05/01/18 21:30 101 42 107/56 (73) 100 05/01/18 21:21 100 43 100 05/01/18 21:15 100 42 105/53 (70) 100 05/01/18 21:00 105/53 05/01/18 21:00 42 Mechanical Ventilator 05/01/18 21:00 101 42 105/55 (72) 100 05/01/18 20:45 102 42 106/53 (70) 100 05/01/18 20:30 103 42 107/55 (72) 100 05/01/18 20:15 104 41 111/53 (72) 100 05/01/18 20:00 Mechanical Ventilator 05/01/18 20:00 107 05/01/18 20:00 111/53 05/01/18 20:00 42 Mechanical Ventilator 05/01/18 20:00 98.4 105 42 113/57 (75) 100 05/01/18 20:00 100 05/01/18 19:23 110 43 100 Mechanical Ventilator 100 05/01/18 19:03 110 41 100 05/01/18 19:02 110 41 100 Mechanical Ventilator 100 05/01/18 19:00 109 36 148/70 (96) 100 05/01/18 18:45 111 42 135/63 (87) 100 05/01/18 18:30 111 40 149/60 (89) 95 05/01/18 18:15 110 40 145/61 (89) 95 05/01/18 18:00 110 40 143/60 (87) 95 05/01/18 17:55 102 40 125/56 (79) 98 05/01/18 17:50 76 36 89/40 (56) 84 05/01/18 17:45 67 29 83/41 (55) 79 05/01/18 17:40 67 26 78/38 (51) 72 05/01/18 17:30 71 28 84/39 (54) 73 05/01/18 17:25 65 27 78/35 (49) 77 05/01/18 17:15 71 38 70/33 (45) 89 05/01/18 17:05 94 47 85 05/01/18 17:00 86 44 94/42 (59) 95 05/01/18 16:45 86 40 92/46 (61) 95 05/01/18 16:30 98 44 101/48 (65) 97 05/01/18 16:15 100 44 108/53 (71) 97 05/01/18 16:00 98.5 99 44 114/52 (72) 96 05/01/18 16:00 80 05/01/18 16:00 Mechanical Ventilator 05/01/18 16:00 87 05/01/18 15:45 93 43 120/52 (74) 95 05/01/18 15:30 85 42 77/39 (52) 96 05/01/18 15:16 92 43 60 05/01/18 15:00 93 41 100/47 (64) 98 05/01/18 14:30 93 40 101/53 (69) 99 05/01/18 14:00 93 41 102/51 (68) 98 05/01/18 13:30 93 41 104/49 (67) 97 05/01/18 13:20 93 41 96 Mechanical Ventilator 70 05/01/18 13:20 93 41 70 05/01/18 13:00 90 42 114/54 (74) 100 05/01/18 13:00 40 Mechanical Ventilator 70 05/01/18 12:55 89 41 99 Mechanical Ventilator 80 05/01/18 12:30 90 41 106/51 (69) 99 Intake and Output 05/01/18 05/02/18 18:59 06:59 Intake Total 2567.530 ml 2158.603 ml Output Total 445 ml 160 ml Balance 2122.530 ml 1998.603 ml Free Water 150 ml 60 ml IV Total 2057.530 ml 1798.603 ml Tube Feeding 360 ml 300 ml Output Urine Total 445 ml 160 ml # Bowel Movements 1 Laboratory Tests 05/01/18 16:00: Arterial Blood pH 7.173*L, Arterial Blood Partial Pressure CO2 43.2, Arterial Blood Partial Pressure O2 61.9L, Arterial Blood HCO3 15.5*L, Arterial Blood Oxygen Saturation 88.7*L, Arterial Blood Base Excess -12.3*L, Aaron Test Positive 05/01/18 18:45: White Blood Count 14.4H, Red Blood Count 3.08L, Hemoglobin 9.6L, Hematocrit 29.4L, Mean Corpuscular Volume 95, Mean Corpuscular Hemoglobin 31.2H, Mean Corpuscular Hemoglobin Concent 32.7, Red Cell Distribution Width 13.7, Platelet Count 155, Mean Platelet Volume 6.7, Neutrophils (%) (Auto) , Lymphocytes (%) ( Auto) , Monocytes (%) (Auto) , Eosinophils (%) (Auto) , Basophils (%) (Auto) , Differential Total Cells Counted 100, Neutrophils % (Manual) 81H, Lymphocytes % (Manual) 5L, Monocytes % (Manual) 7, Eosinophils % (Manual) 1, Basophils % ( Manual) 0, Metamyelocytes % 1H, Band Neutrophils 5, Platelet Estimate Adequate, Platelet Morphology Normal, Rip Cells 1+, Crenated Cell 2+, Sodium Level 138, Potassium Level 4.3, Chloride Level 106, Carbon Dioxide Level 16L, Anion Gap 16H , Blood Urea Nitrogen 70H, Creatinine 4.6H, Estimat Glomerular Filtration Rate 13.2, Glucose Level 338#H, Lactic Acid Level 1.90, Calcium Level 8.2L, Total Bilirubin 1.0, Aspartate Amino Transf (AST/SGOT) 37, Alanine Aminotransferase ( ALT/SGPT) 16, Alkaline Phosphatase 73, Total Protein 5.7L, Albumin 2.5L, Globulin 3.2, Albumin/Globulin Ratio 0.8L 05/02/18 04:32: Arterial Blood pH 6.852*L, Arterial Blood Partial Pressure CO2 64.0*H, Arterial Blood Partial Pressure O2 34.4*L, Arterial Blood HCO3 11.0*L, Arterial Blood Oxygen Saturation 46.9*L, Arterial Blood Base Excess -22.2*L, Aaron Test Positive 05/02/18 05:00: White Blood Count 10.8, Red Blood Count 3.02L, Hemoglobin 9.4L, Hematocrit 29.7L , Mean Corpuscular Volume 98, Mean Corpuscular Hemoglobin 31.2H, Mean Corpuscular Hemoglobin Concent 31.8L, Red Cell Distribution Width 13.9, Platelet Count 129L, Mean Platelet Volume 7.5, Neutrophils (%) (Auto) 68.6, Lymphocytes (%) (Auto) 24.5, Monocytes (%) (Auto) 5.6, Eosinophils (%) (Auto) 0.5, Basophils (%) (Auto) 0.8, Sodium Level 139, Potassium Level 4.4, Chloride Level 108H, Carbon Dioxide Level 13L, Anion Gap 18H, Blood Urea Nitrogen 70H, Creatinine 4.9H, Estimat Glomerular Filtration Rate 12.3, Glucose Level 308H, Calcium Level 8.1L, Total Bilirubin 0.5, Aspartate Amino Transf (AST/SGOT) 49H, Alanine Aminotransferase (ALT/SGPT) 19, Alkaline Phosphatase 79, Total Protein 6.0L, Albumin 2.0L, Globulin 4.0, Uric Acid 6.6, Phosphorus Level 4.4, Magnesium Level 2.3, Troponin I 0.793H, Pro-B-Type Natriuretic Peptide 36264F, Phenytoin (Dilantin) Level 12.5 05/02/18 07:26: Arterial Blood pH 7.093*L, Arterial Blood Partial Pressure CO2 63.3*H, Arterial Blood Partial Pressure O2 45.4*L, Arterial Blood HCO3 18.9L, Arterial Blood Oxygen Saturation 77.5*L, Arterial Blood Base Excess -11.1*L, Aaron Test Positive Height (Feet): 5 Height (Inches): 10.00 Weight (Pounds): 165 Objective PE: General Appearance: well appearing, no apparent distress, alert Head: normocephalic EENT: PERRL/EOMI, normal ENT inspection Neck: supple Respiratory: normal breath sounds, no respiratory distress, intubated++ Cardiovascular: normal rate Gastrointestinal: normal inspection, non tender, soft, normal bowel sounds, non -distended Rectal: deferred Genitourinary: deferred Musculoskeletal: normal inspection, back normal Mirza Greenfield MD May 02, 2018 12:23
--- NOTE | 2018-05-02 12:56 | NUR ---
NURSE NOTES: Relayed latest ABG results to Dr. Griffin, no orders at this time. Will continue to monitor.
--- NOTE | 2018-05-02 13:13 | Cardiac Electrophysiology PN ---
Assessment/Plan Assessment/Plan 1. Spetic Shock, likely combination of sepsis as well as hemorrhagic shock 6.2. S/P two units of blood transfusion. On Levophed, Cameron and Dopamine as well as broad spectrum IV antibiotic. EF 60% to 65%. 2. Troponin elevation, likely due to septic shock and demand ischemia. 3. Respiratory failure, on the ventilator, under management of Dr. Griffin, still on 100% FiO2. 4. Severe anemia, s/p blood transfusion. Etiology is not clear. 5. Alcohol abuse. 6. Aspiration pneumonia. 7. History of non insulin-dependent diabetes. Further evaluation by Dr. Ocampo. 8. Full code DW RN Subjective Subjective Had maday and coded and had Epi x 2 . Now on the Vent on 3 pressors Objective Last 24 Hour Vital Signs Date Time Temp Pulse Resp B/P (MAP) Pulse Ox O2 Delivery O2 Flow Rate FiO2 05/02/18 12:00 100 05/02/18 12:00 123 55 155/73 (100) 94 05/02/18 11:30 98.7 94 30 109/62 (78) 93 05/02/18 11:24 109/62 05/02/18 11:00 71 29 77/46 (56) 82 05/02/18 10:45 97 30 110/62 (78) 92 05/02/18 10:30 115 32 100 05/02/18 10:30 100 31 111/64 (80) 95 05/02/18 10:19 89 30 92/51 (65) 85 05/02/18 10:15 89 30 90/50 (63) 83 05/02/18 10:00 100 30 108/56 (73) 88 05/02/18 09:45 104 30 110/59 (76) 85 05/02/18 09:30 116 30 139/62 (87) 88 05/02/18 09:21 118 30 100 05/02/18 09:15 120 30 141/66 (91) 89 05/02/18 09:00 128 30 172/75 (107) 87 05/02/18 08:45 122 30 149/68 (95) 94 05/02/18 08:30 116 29 133/63 (86) 88 05/02/18 08:15 117 30 131/64 (86) 88 05/02/18 08:00 125 05/02/18 08:00 98.5 123 30 122/62 (82) 90 05/02/18 08:00 Mechanical Ventilator 05/02/18 08:00 141/66 05/02/18 08:00 122/62 05/02/18 08:00 136/65 05/02/18 07:16 114 30 100 05/02/18 07:16 116 30 91 Mechanical Ventilator 15.0 100 05/02/18 07:16 116 30 91 Mechanical Ventilator 80 05/02/18 07:00 141/66 05/02/18 07:00 130/66 05/02/18 07:00 127 30 136/65 (88) 87 05/02/18 06:45 127 30 133/65 (87) 83 05/02/18 06:40 100 05/02/18 06:30 108 47 130/60 (83) 80 05/02/18 06:30 133/65 05/02/18 06:15 130/60 05/02/18 06:15 129 30 121/62 (81) 91 05/02/18 06:00 122 30 115/55 (75) 05/02/18 06:00 121/62 05/02/18 06:00 121/62 05/02/18 05:45 133 30 124/65 (84) 05/02/18 05:32 99.2 05/02/18 05:30 131 32 117/72 (87) 72 05/02/18 05:16 76/43 05/02/18 05:15 131 21 129/65 (86) 83 05/02/18 05:00 129/65 05/02/18 05:00 91 36 100 05/02/18 05:00 72 24 76/43 (54) 8 05/02/18 04:52 129 24 140/66 (90) 19 05/02/18 04:50 55/31 05/02/18 04:45 44 32 77/14 (35) 20 05/02/18 04:40 92 7 55/31 (39) 23 05/02/18 04:30 100 05/02/18 04:30 42 25 59/35 (43) 26 05/02/18 04:27 43 27 65/34 (44) 39 05/02/18 04:15 100 44 84/44 (57) 90 05/02/18 04:00 99.5 99 45 95/50 (65) 97 05/02/18 04:00 95 05/02/18 04:00 84/44 05/02/18 04:00 42 Mechanical Ventilator 05/02/18 04:00 Mechanical Ventilator 05/02/18 04:00 100 05/02/18 03:45 95 44 91/44 (60) 95 05/02/18 03:30 98 45 92/46 (61) 95 05/02/18 03:15 98 45 94/47 (63) 94 05/02/18 03:00 102 45 99/47 (64) 97 05/02/18 03:00 99/47 05/02/18 03:00 42 Mechanical Ventilator 05/02/18 02:50 99 41 80 05/02/18 02:45 104 46 108/52 (70) 98 05/02/18 02:30 105 45 114/54 (74) 99 05/02/18 02:22 104 41 99 Mechanical Ventilator 80 05/02/18 02:15 101 42 127/64 (85) 99 05/02/18 02:06 96 43 100 Mechanical Ventilator 80 05/02/18 02:00 101/60 05/02/18 02:00 42 Mechanical Ventilator 05/02/18 02:00 101.0 96 43 103/53 (70) 100 05/02/18 01:45 97 43 103/53 (70) 100 05/02/18 01:30 96 43 80 05/02/18 01:30 97 43 104/51 (68) 100 05/02/18 01:15 97 43 100/53 (69) 100 05/02/18 01:00 98 43 98/51 (67) 100 05/02/18 01:00 100/53 05/02/18 01:00 42 Mechanical Ventilator 05/02/18 00:00 103 05/02/18 00:00 98.5 100 43 102/54 (70) 100 05/02/18 00:00 100 05/02/18 00:00 110/60 05/02/18 00:00 42 Mechanical Ventilator 05/02/18 00:00 Mechanical Ventilator 05/01/18 23:45 101 43 104/54 (71) 100 05/01/18 23:30 99 42 98/52 (67) 100 05/01/18 23:30 99 41 100 05/01/18 23:15 99 42 97/53 (68) 100 05/01/18 23:00 99 42 97/50 (66) 100 05/01/18 23:00 97/53 05/01/18 23:00 42 Mechanical Ventilator 05/01/18 22:45 99 42 100/55 (70) 100 05/01/18 22:30 99 42 104/52 (69) 100 05/01/18 22:15 99 41 100/57 (71) 100 05/01/18 22:05 105/53 05/01/18 22:00 100 41 105/53 (70) 100 05/01/18 22:00 100/57 05/01/18 22:00 42 Mechanical Ventilator 05/01/18 21:45 100 41 109/53 (71) 100 05/01/18 21:30 101 42 107/56 (73) 100 05/01/18 21:21 100 43 100 05/01/18 21:15 100 42 105/53 (70) 100 05/01/18 21:00 105/53 05/01/18 21:00 42 Mechanical Ventilator 05/01/18 21:00 101 42 105/55 (72) 100 05/01/18 20:45 102 42 106/53 (70) 100 05/01/18 20:30 103 42 107/55 (72) 100 05/01/18 20:15 104 41 111/53 (72) 100 05/01/18 20:00 Mechanical Ventilator 05/01/18 20:00 107 05/01/18 20:00 111/53 05/01/18 20:00 42 Mechanical Ventilator 05/01/18 20:00 98.4 105 42 113/57 (75) 100 05/01/18 20:00 100 05/01/18 19:23 110 43 100 Mechanical Ventilator 100 05/01/18 19:03 110 41 100 05/01/18 19:02 110 41 100 Mechanical Ventilator 100 05/01/18 19:00 109 36 148/70 (96) 100 05/01/18 18:45 111 42 135/63 (87) 100 05/01/18 18:30 111 40 149/60 (89) 95 05/01/18 18:15 110 40 145/61 (89) 95 05/01/18 18:00 110 40 143/60 (87) 95 05/01/18 17:55 102 40 125/56 (79) 98 05/01/18 17:50 76 36 89/40 (56) 84 05/01/18 17:45 67 29 83/41 (55) 79 05/01/18 17:40 67 26 78/38 (51) 72 05/01/18 17:30 71 28 84/39 (54) 73 05/01/18 17:25 65 27 78/35 (49) 77 05/01/18 17:15 71 38 70/33 (45) 89 05/01/18 17:05 94 47 85 05/01/18 17:00 86 44 94/42 (59) 95 05/01/18 16:45 86 40 92/46 (61) 95 05/01/18 16:30 98 44 101/48 (65) 97 05/01/18 16:15 100 44 108/53 (71) 97 05/01/18 16:00 98.5 99 44 114/52 (72) 96 05/01/18 16:00 80 05/01/18 16:00 Mechanical Ventilator 05/01/18 16:00 87 05/01/18 15:45 93 43 120/52 (74) 95 05/01/18 15:30 85 42 77/39 (52) 96 05/01/18 15:16 92 43 60 05/01/18 15:00 93 41 100/47 (64) 98 05/01/18 14:30 93 40 101/53 (69) 99 05/01/18 14:00 93 41 102/51 (68) 98 05/01/18 13:30 93 41 104/49 (67) 97 05/01/18 13:20 93 41 96 Mechanical Ventilator 70 05/01/18 13:20 93 41 70 Intake and Output 05/01/18 05/02/18 18:59 06:59 Intake Total 2567.530 ml 2158.603 ml Output Total 445 ml 160 ml Balance 2122.530 ml 1998.603 ml Free Water 150 ml 60 ml IV Total 2057.530 ml 1798.603 ml Tube Feeding 360 ml 300 ml Output Urine Total 445 ml 160 ml # Bowel Movements 1 Laboratory Tests Test 05/01/18 16:00 05/01/18 18:45 05/02/18 04:32 05/02/18 05:00 Arterial Blood pH 7.173 (7.350-7.450) 6.852 (7.350-7.450) Arterial Blood Partial Pressure CO2 43.2 mmHg (35.0-45.0) 64.0 mmHg (35.0-45.0) *H Arterial Blood Partial Pressure O2 61.9 mmHg (75.0-100.0) L 34.4 mmHg (75.0-100.0) Arterial Blood HCO3 15.5 mmol/L (22.0-26.0) *L 11.0 mmol/L (22.0-26.0) *L Arterial Blood Oxygen Saturation 88.7 % (95-100) *L 46.9 % (95-100) *L Arterial Blood Base Excess -12.3 (-2-2) *L -22.2 (-2-2) *L Aaron Test Positive Positive White Blood Count 14.4 K/UL (4.8-10.8) H 10.8 K/UL (4.8-10.8) Red Blood Count 3.08 M/UL (4.70-6.10) L 3.02 M/UL (4.70-6.10) L Hemoglobin 9.6 G/DL (14.2-18.0) L 9.4 G/DL (14.2-18.0) L Hematocrit 29.4 % (42.0-52.0) L 29.7 % (42.0-52.0) L Mean Corpuscular Volume 95 FL (80-99) 98 FL (80-99) Mean Corpuscular Hemoglobin 31.2 PG (27.0-31.0) H 31.2 PG (27.0-31.0) H Mean Corpuscular Hemoglobin Concent 32.7 G/DL (32.0-36.0) 31.8 G/DL (32.0-36.0) L Red Cell Distribution Width 13.7 % (11.6-14.8) 13.9 % (11.6-14.8) Platelet Count 155 K/UL (150-450) 129 K/UL (150-450) L Mean Platelet Volume 6.7 FL (6.5-10.1) 7.5 FL (6.5-10.1) Neutrophils (%) (Auto) % (45.0-75.0) 68.6 % (45.0-75.0) Lymphocytes (%) (Auto) % (20.0-45.0) 24.5 % (20.0-45.0) Monocytes (%) (Auto) % (1.0-10.0) 5.6 % (1.0-10.0) Eosinophils (%) (Auto) % (0.0-3.0) 0.5 % (0.0-3.0) Basophils (%) (Auto) % (0.0-2.0) 0.8 % (0.0-2.0) Differential Total Cells Counted 100 Neutrophils % (Manual) 81 % (45-75) H Lymphocytes % (Manual) 5 % (20-45) L Monocytes % (Manual) 7 % (1-10) Eosinophils % (Manual) 1 % (0-3) Basophils % (Manual) 0 % (0-2) Metamyelocytes % 1 % (0-0) H Band Neutrophils 5 % (0-8) Platelet Estimate Adequate Platelet Morphology Normal [place] Cells 1+ Crenated Cell 2+ Sodium Level 138 MMOL/L (136-145) 139 MMOL/L (136-145) Potassium Level 4.3 MMOL/L (3.5-5.1) 4.4 MMOL/L (3.5-5.1) Chloride Level 106 MMOL/L (98-107) 108 MMOL/L (98-107) H Carbon Dioxide Level 16 MMOL/L (21-32) L 13 MMOL/L (21-32) L Anion Gap 16 mmol/L (5-15) H 18 mmol/L (5-15) H Blood Urea Nitrogen 70 mg/dL (7-18) H 70 mg/dL (7-18) H Creatinine 4.6 MG/DL (0.55-1.30) H 4.9 MG/DL (0.55-1.30) H Estimat Glomerular Filtration Rate 13.2 mL/min (>60) 12.3 mL/min (>60) Glucose Level 338 MG/DL (74-106) #H 308 MG/DL (74-106) H Lactic Acid Level 1.90 mmol/L (0.4-2.0) Calcium Level 8.2 MG/DL (8.5-10.1) L 8.1 MG/DL (8.5-10.1) L Total Bilirubin 1.0 MG/DL (0.2-1.0) 0.5 MG/DL (0.2-1.0) Aspartate Amino Transf (AST/SGOT) 37 U/L (15-37) 49 U/L (15-37) H Alanine Aminotransferase (ALT/SGPT) 16 U/L (12-78) 19 U/L (12-78) Alkaline Phosphatase 73 U/L (46-116) 79 U/L (46-116) Total Protein 5.7 G/DL (6.4-8.2) L 6.0 G/DL (6.4-8.2) L Albumin 2.5 G/DL (3.4-5.0) L 2.0 G/DL (3.4-5.0) L Globulin 3.2 g/dL 4.0 g/dL Albumin/Globulin Ratio 0.8 (1.0-2.7) L Uric Acid 6.6 MG/DL (2.6-7.2) Phosphorus Level 4.4 MG/DL (2.5-4.9) Magnesium Level 2.3 MG/DL (1.8-2.4) Troponin I 0.793 ng/mL (0.000-0.056) Pro-B-Type Natriuretic Peptide 74573 pg/mL (0-125) H Phenytoin (Dilantin) Level 12.5 ug/mL (10-20) Test 05/02/18 07:26 05/02/18 12:45 Arterial Blood pH 7.093 (7.350-7.450) 7.172 (7.350-7.450) Arterial Blood Partial Pressure CO2 63.3 mmHg (35.0-45.0) *H 55.8 mmHg (35.0-45.0) *H Arterial Blood Partial Pressure O2 45.4 mmHg (75.0-100.0) 51.2 mmHg (75.0-100.0) L Arterial Blood HCO3 18.9 mmol/L (22.0-26.0) L 20.0 mmol/L (22.0-26.0) L Arterial Blood Oxygen Saturation 77.5 % (95-100) *L 85.2 % (95-100) *L Arterial Blood Base Excess -11.1 (-2-2) *L -8.5 (-2-2) L Aaron Test Positive Positive Objective HEAD AND NECK: orally intubated. LUNGS: Coarse rhonchi bilaterally. CARDIOVASCULAR: TAchy S1 and S2 with no gallop or murmur. ABDOMEN: Soft. EXTREMITIES: 1+ pitting edema. Earl Moreno MD May 02, 2018 13:13
[2018-05-02] MEDS ORDERED: Vancomycin 1.5gm Premix IVPB ONE (13:30)
[2018-05-02] MEDS ORDERED: D5 IV SCH (14:00)
[2018-05-02] MEDS ORDERED: [UNRECOGNIZED DRUG - OTHER] IV SCH (14:00)
[2018-05-02] MEDS ORDERED: SODIUM BICARBONATE IV SCH (14:00)
--- NOTE | 2018-05-02 14:45 | NUR ---
NURSE NOTES: Family members including daughter in patient's room, at bedside, aware of patient's condition. Oxygen saturation at 94% with same vent settings.
[2018-05-02] MEDS: [UNRECOGNIZED DRUG - OTHER] IV SCH (15:35)
--- NOTE | 2018-05-02 16:00 | NUR ---
NURSE NOTES: Patient's oxygen saturation at 100%, HOB at semi-elias's position. Respirations at 30. Remains of pressors for heart rate and blood pressure control. Oral care provided. Ex- at bedside.
[2018-05-02] MEDS: Midazolam/D5W 100ml 100 ML IVPB SCH (16:15)
--- NOTE | 2018-05-02 16:39 | Diagnostic Imaging Report ---
Indication: Shortness of breath, evaluation of endotracheal tube Technique: One view of the chest Comparison: 04/30/2018 Findings: Interim retraction of previously demonstrated endotracheal tube, tip now projected at the level the thoracic inlet. Nasogastric tube is again noted, tip projected beyond the edge of image, but appears to be within the stomach. Extensive and diffuse pulmonary airspace disease is again demonstrated Impression: High position of endotracheal tube. This was apparently recognized by the referring physician, as a subsequent radiograph demonstrates interim advancement with improved position Stable bilateral pulmonary parenchymal disease
--- NOTE | 2018-05-02 16:40 | NUR ---
NURSE NOTES: Removed right femoral TLC, manual pressure held, no bleeding noted.
[2018-05-02] MEDS: Thiamine HCl 100 MG in NS 55 ML IVPB SCH (17:27)
--- NOTE | 2018-05-02 18:45 | NUR ---
NURSE NOTES: Received order for ABG and to keep saturation 92% and above, updated on patient's oxygen saturation remaining at 100% since 1500, still on 3 pressors of the moment, titrating down on Levophed.
--- NOTE | 2018-05-02 19:08 | NUR ---
RESPIRATORY NOTE: RECEIVED PT ON CURRENT VENT SETTINGS: AC 30, VT550, PEEP +10, FIO2 90%. PT LALIT CURRENT VENT SETTINGS WELL. PT ORALLY INTUBATED WITH ETT 7.5 AT 26cm LL. ETT SECURE AND PATENT. VENT PLUGGED INTO RED OUTLET. ALARMS ARE ON AND AUDIBLE. WILL CONTINUE MONITORING PT.
--- NOTE | 2018-05-02 19:27 | NUR ---
NURSE NOTES: Notified MD Griffin about new ABG order at this time. No new orders.
--- NOTE | 2018-05-02 19:29 | NUR ---
HAND-OFF: Report given to SHARLA Vernon.
--- NOTE | 2018-05-02 19:30 | NUR ---
NURSE NOTES: Received patient in bed with eyes closed. Sinus rhythm on the monitor with HR 90. orally intubated 7.5/ 26 cm. AC 30, Vt 550, peep 5, fio2 100%. TRACIE Picc line running Dopamine @ 4 mcg/min, Levophed @ 8 mcg/min, Vasopressin @ 0.04 u/per minute. Right Nare NGT clamped at this time, feeding help her MD Griffin. Patient noted to be edematous at this time. Meade cath noted with no urine output at this time, flushed and noted to be patent. Bed in lowest position, side rails upx3, side rails padded. No signs of distress noted. Will continue to monitor
--- NOTE | 2018-05-02 19:37 | NUR ---
NURSE NOTES: MD Griffin ordered for patient to be a 1:1
[2018-05-02] MEDS: Dyna-Hex 2% Top Sol 2oz TOPIC SCH (19:53)
[2018-05-02] MEDS: Iron Sucrose 100 MG in NS 55 ML IV SCH (20:54)
--- NOTE | 2018-05-02 21:21 | General Progress Note ---
Assessment/Plan Problem List: (1) Anemia ICD Codes: D64.9 - Anemia, unspecified SNOMED: 876411585 (2) Alcohol abuse ICD Codes: F10.10 - Alcohol abuse, uncomplicated SNOMED: 71558630 (3) Epileptic seizure, generalized ICD Codes: G40.309 - Generalized idiopathic epilepsy and epileptic syndromes, not intractable, without status epilepticus SNOMED: 68426195 Status: progressing Assessment/Plan encephalopathy anemia afebrile not improving lethargic intubated resp failure ARDS due to aspiration pna very poor prognosis leukocytosis Subjective ROS Limited/Unobtainable: Yes Allergies: Coded Allergies: No Known Allergies (Unverified , 04/24/18) Objective Last 24 Hour Vital Signs Date Time Temp Pulse Resp B/P (MAP) Pulse Ox O2 Delivery O2 Flow Rate FiO2 05/02/18 20:32 89 30 90 100 05/02/18 20:15 92 30 165/89 (114) 100 05/02/18 20:00 90 30 163/90 (114) 100 05/02/18 20:00 Mechanical Ventilator 05/02/18 20:00 100 05/02/18 19:45 89 30 154/87 (109) 100 05/02/18 19:38 91 30 164/92 (116) 100 05/02/18 19:30 90 30 166/92 (116) 100 05/02/18 19:15 97.9 90 30 164/90 (114) 100 05/02/18 19:08 90 30 90 100 05/02/18 19:00 89 30 166/94 (118) 100 05/02/18 19:00 166/94 05/02/18 18:57 166/94 05/02/18 18:45 165/88 05/02/18 18:30 167/80 05/02/18 18:16 173/81 05/02/18 18:00 173/81 05/02/18 18:00 173/81 05/02/18 17:25 92 30 100 05/02/18 17:00 147/77 05/02/18 17:00 147/77 05/02/18 16:15 92 30 143/77 (99) 99 05/02/18 16:00 93 30 142/73 (96) 100 05/02/18 16:00 Mechanical Ventilator 05/02/18 16:00 142/73 05/02/18 16:00 142/73 05/02/18 16:00 100 05/02/18 16:00 102 05/02/18 15:45 95 30 138/77 (97) 100 05/02/18 15:30 157/81 05/02/18 15:30 157/81 05/02/18 15:30 104 30 157/81 (106) 100 05/02/18 15:15 104 30 160/80 (106) 100 05/02/18 15:00 105 30 161/81 (107) 100 05/02/18 15:00 98 30 100 05/02/18 15:00 161/81 05/02/18 15:00 161/81 05/02/18 14:45 107 30 158/82 (107) 98 05/02/18 14:30 109 30 158/79 (105) 100 05/02/18 14:30 158/79 05/02/18 14:15 111 30 165/88 (113) 99 05/02/18 14:00 165/68 05/02/18 14:00 165/68 05/02/18 14:00 100 30 144/64 (90) 97 05/02/18 13:45 110 30 168/83 (111) 98 05/02/18 13:36 108 30 99 Mechanical Ventilator 100 05/02/18 13:30 109 30 174/89 (117) 100 05/02/18 13:26 112 30 100 Mechanical Ventilator 15.0 100 05/02/18 13:25 112 30 100 05/02/18 13:15 115 30 149/80 (103) 95 05/02/18 13:00 120 30 154/77 (102) 94 05/02/18 13:00 154/77 05/02/18 13:00 154/77 05/02/18 12:45 121 30 148/74 (98) 96 05/02/18 12:30 121 30 149/76 (100) 95 05/02/18 12:15 122 37 150/75 (100) 93 05/02/18 12:00 123 55 155/73 (100) 94 05/02/18 12:00 122 05/02/18 12:00 100 05/02/18 12:00 150/75 05/02/18 12:00 150/75 05/02/18 12:00 Mechanical Ventilator 05/02/18 12:00 123 55 155/73 (100) 94 05/02/18 11:45 121 30 157/75 (102) 96 05/02/18 11:30 98.7 94 30 109/62 (78) 93 05/02/18 11:24 109/62 05/02/18 11:20 66/43 05/02/18 11:20 66/43 05/02/18 11:15 94 30 109/62 (78) 93 05/02/18 11:00 106/58 05/02/18 11:00 106/58 05/02/18 11:00 71 29 77/46 (56) 82 05/02/18 10:45 97 30 110/62 (78) 92 05/02/18 10:30 115 32 100 05/02/18 10:30 110/62 05/02/18 10:30 100 31 111/64 (80) 95 05/02/18 10:19 89 30 92/51 (65) 85 05/02/18 10:15 89 30 90/50 (63) 83 05/02/18 10:00 90/50 05/02/18 10:00 90/50 05/02/18 10:00 100 30 108/56 (73) 88 05/02/18 09:45 104 30 110/59 (76) 85 05/02/18 09:30 116 30 139/62 (87) 88 05/02/18 09:30 110/59 05/02/18 09:21 118 30 100 05/02/18 09:15 120 30 141/66 (91) 89 05/02/18 09:00 128 30 172/75 (107) 87 05/02/18 09:00 141/66 05/02/18 09:00 141/66 05/02/18 08:45 122 30 149/68 (95) 94 05/02/18 08:30 116 29 133/63 (86) 88 05/02/18 08:15 117 30 131/64 (86) 88 05/02/18 08:00 125 05/02/18 08:00 98.5 123 30 122/62 (82) 90 05/02/18 08:00 Mechanical Ventilator 05/02/18 08:00 141/66 05/02/18 08:00 122/62 05/02/18 08:00 136/65 05/02/18 07:16 114 30 100 05/02/18 07:16 116 30 91 Mechanical Ventilator 15.0 100 05/02/18 07:16 116 30 91 Mechanical Ventilator 80 05/02/18 07:00 141/66 05/02/18 07:00 130/66 05/02/18 07:00 127 30 136/65 (88) 87 05/02/18 06:45 127 30 133/65 (87) 83 05/02/18 06:40 100 05/02/18 06:30 108 47 130/60 (83) 80 05/02/18 06:30 133/65 05/02/18 06:15 130/60 05/02/18 06:15 129 30 121/62 (81) 91 05/02/18 06:00 122 30 115/55 (75) 05/02/18 06:00 121/62 05/02/18 06:00 121/62 05/02/18 05:45 133 30 124/65 (84) 05/02/18 05:32 99.2 05/02/18 05:30 131 32 117/72 (87) 72 05/02/18 05:16 76/43 05/02/18 05:15 131 21 129/65 (86) 83 05/02/18 05:00 129/65 05/02/18 05:00 91 36 100 05/02/18 05:00 72 24 76/43 (54) 8 05/02/18 04:52 129 24 140/66 (90) 19 05/02/18 04:50 55/31 05/02/18 04:45 44 32 77/14 (35) 20 05/02/18 04:40 92 7 55/31 (39) 23 05/02/18 04:30 100 05/02/18 04:30 42 25 59/35 (43) 26 05/02/18 04:27 43 27 65/34 (44) 39 05/02/18 04:15 100 44 84/44 (57) 90 05/02/18 04:00 99.5 99 45 95/50 (65) 97 05/02/18 04:00 95 05/02/18 04:00 84/44 05/02/18 04:00 42 Mechanical Ventilator 05/02/18 04:00 Mechanical Ventilator 3/20/19 04:00 100 05/02/18 03:45 95 44 91/44 (60) 95 05/02/18 03:30 98 45 92/46 (61) 95 05/02/18 03:15 98 45 94/47 (63) 94 05/02/18 03:00 102 45 99/47 (64) 97 05/02/18 03:00 99/47 05/02/18 03:00 42 Mechanical Ventilator 05/02/18 02:50 99 41 80 05/02/18 02:45 104 46 108/52 (70) 98 05/02/18 02:30 105 45 114/54 (74) 99 05/02/18 02:22 104 41 99 Mechanical Ventilator 80 05/02/18 02:15 101 42 127/64 (85) 99 05/02/18 02:06 96 43 100 Mechanical Ventilator 80 05/02/18 02:00 101/60 05/02/18 02:00 42 Mechanical Ventilator 05/02/18 02:00 101.0 96 43 103/53 (70) 100 05/02/18 01:45 97 43 103/53 (70) 100 05/02/18 01:30 96 43 80 05/02/18 01:30 97 43 104/51 (68) 100 05/02/18 01:15 97 43 100/53 (69) 100 05/02/18 01:00 98 43 98/51 (67) 100 05/02/18 01:00 100/53 05/02/18 01:00 42 Mechanical Ventilator 05/02/18 00:00 103 05/02/18 00:00 98.5 100 43 102/54 (70) 100 05/02/18 00:00 100 05/02/18 00:00 110/60 05/02/18 00:00 42 Mechanical Ventilator 05/02/18 00:00 Mechanical Ventilator 05/01/18 23:45 101 43 104/54 (71) 100 05/01/18 23:30 99 42 98/52 (67) 100 05/01/18 23:30 99 41 100 05/01/18 23:15 99 42 97/53 (68) 100 05/01/18 23:00 99 42 97/50 (66) 100 05/01/18 23:00 97/53 05/01/18 23:00 42 Mechanical Ventilator 05/01/18 22:45 99 42 100/55 (70) 100 05/01/18 22:30 99 42 104/52 (69) 100 05/01/18 22:15 99 41 100/57 (71) 100 05/01/18 22:05 105/53 05/01/18 22:00 100 41 105/53 (70) 100 05/01/18 22:00 100/57 05/01/18 22:00 42 Mechanical Ventilator 05/01/18 21:45 100 41 109/53 (71) 100 05/01/18 21:30 101 42 107/56 (73) 100 05/01/18 21:21 100 43 100 Intake and Output 05/01/18 05/02/18 19:00 07:00 Intake Total 2573.150 ml 2233.559 ml Output Total 455 ml 140 ml Balance 2118.150 ml 2093.559 ml Free Water 150 ml 60 ml IV Total 2063.150 ml 1903.559 ml Tube Feeding 360 ml 270 ml Output Urine Total 455 ml 140 ml # Bowel Movements 1 Laboratory Tests 05/02/18 04:32: Arterial Blood pH 6.852*L, Arterial Blood Partial Pressure CO2 64.0*H, Arterial Blood Partial Pressure O2 34.4*L, Arterial Blood HCO3 11.0*L, Arterial Blood Oxygen Saturation 46.9*L, Arterial Blood Base Excess -22.2*L, Aaron Test Positive 05/02/18 05:00: White Blood Count 10.8, Red Blood Count 3.02L, Hemoglobin 9.4L, Hematocrit 29.7L , Mean Corpuscular Volume 98, Mean Corpuscular Hemoglobin 31.2H, Mean Corpuscular Hemoglobin Concent 31.8L, Red Cell Distribution Width 13.9, Platelet Count 129L, Mean Platelet Volume 7.5, Neutrophils (%) (Auto) 68.6, Lymphocytes (%) (Auto) 24.5, Monocytes (%) (Auto) 5.6, Eosinophils (%) (Auto) 0.5, Basophils (%) (Auto) 0.8, Sodium Level 139, Potassium Level 4.4, Chloride Level 108H, Carbon Dioxide Level 13L, Anion Gap 18H, Blood Urea Nitrogen 70H, Creatinine 4.9H, Estimat Glomerular Filtration Rate 12.3, Glucose Level 308H, Uric Acid 6.6, Calcium Level 8.1L, Phosphorus Level 4.4, Magnesium Level 2.3, Total Bilirubin 0.5, Aspartate Amino Transf (AST/SGOT) 49H, Alanine Aminotransferase (ALT/SGPT) 19, Alkaline Phosphatase 79, Troponin I 0.793H, Pro- B-Type Natriuretic Peptide 12996U, Total Protein 6.0L, Albumin 2.0L, Globulin 4.0, Phenytoin (Dilantin) Level 12.5 05/02/18 07:26: Arterial Blood pH 7.093*L, Arterial Blood Partial Pressure CO2 63.3*H, Arterial Blood Partial Pressure O2 45.4*L, Arterial Blood HCO3 18.9L, Arterial Blood Oxygen Saturation 77.5*L, Arterial Blood Base Excess -11.1*L, Aaron Test Positive 05/02/18 12:45: Arterial Blood pH 7.172*L, Arterial Blood Partial Pressure CO2 55.8*H, Arterial Blood Partial Pressure O2 51.2L, Arterial Blood HCO3 20.0L, Arterial Blood Oxygen Saturation 85.2*L, Arterial Blood Base Excess -8.5L, Aaron Test Positive 05/02/18 18:40: Arterial Blood pH 7.260L, Arterial Blood Partial Pressure CO2 42.2, Arterial Blood Partial Pressure O2 65.8L, Arterial Blood HCO3 18.5L, Arterial Blood Oxygen Saturation [Pending], Arterial Blood Base Excess -8.2L, Aaron Test Positive Height (Feet): 5 Height (Inches): 10.00 Weight (Pounds): 165 General Appearance: lethargic, confused Respiratory/Chest: rhonchi - bilaterally Farhan Joaquin MD May 02, 2018 21:21
--- NOTE | 2018-05-02 21:30 | NUR ---
NURSE NOTES: Patient turned and repositioned at this time. Noted to have one large BM, Mucous in texture brown colored. Continues on pressors. Sats 100%. Will continue to monitor.
--- NOTE | 2018-05-02 23:00 | NUR ---
NURSE NOTES: Daughter at bedside. Updates given in regards to transfer to [facility]. Will continue with plan of care.
[2018-05-03] VITALS (72 sets, daily range): BP systolic 78–171; BP diastolic 49–83
[2018-05-03] MEDS: NovoLOG Insulin Flexpen SUBQ SCH ×6 (00:16→21:00)
--- NOTE | 2018-05-03 00:45 | Progress Note ---
DATE: 05/02/2018 SUBJECTIVE: The patient is still in deep coma. Right now, he is on vasopressin 0.04 mcg, levodopa 4 mcg, and dopamine 16 mcg to bring his blood pressure up. He is also getting bicarbonate. His hemoglobin is 9.4. Last blood gas today was pH 7.172, a pCO2 of 55.8, and a pO2 of 51.2. His oxygen saturation is 85.2%, which was higher than this morning. Apparently, this morning he did have a code lasting 30 to 40 minutes that was resuscitated. PHYSICAL EXAMINATION: VITAL SIGNS: Blood pressure is 158/74, pulse is 91, respiration rate, he is on the ventilator. He is not overdriving on the ventilator. NEUROLOGIC EXAM: MENTAL STATUS: He is in a deep coma. There is no reaction to deep pain in all parts of his body. CRANIAL NERVE EXAMINATION: CRANIAL NERVES III, IV, AND : There is no doll's eye. His pupils are 6 to 7 mm, round, and reactive to light. CRANIAL NERVE V: Corneal reflexes are absent. CRANIAL NERVES VII: There was no response to nasal stimulation where there was once before. CRANIAL NERVES VIII THROUGH XII: Absent. MUSCLE EXAMINATION: He has flaccid quadriplegia. Reflexes are 0 in the upper and lower extremities. Indefinite toe signs on testing for Babinski response. SENSORY EXAM: No reaction to deep pain in all 4 extremities and on his chest. IMPRESSION: The patient is in a deep coma at the level of which at this point that the spinal cord. In other words, he appears brain and fortunately he was on Versed. We will probably wait another day before obtaining another EEG. This is to make sure the Versed is worn off completely. His temperature was 98. PLAN: As above. James Caicedo MD DR: JOELLE JOB#: [id number] CC:
--- NOTE | 2018-05-03 01:00 | NUR ---
NURSE NOTES: patient continues to comatose at this time. No response to verbal or tactile stimuli. continues on Dopamine 2 mcg/min, Levophed @ 4 mcg/min, Vasopressin 0.04 u/hr. HR in the 70's. Pressors are being titrated to keep SBP>90, MAP>90. Will continue with plan of care.
[2018-05-03] MEDS: [UNRECOGNIZED DRUG - OTHER] IV SCH ×2 (02:05→14:16)
[2018-05-03] MEDS: SODIUM BICARBONATE IV SCH ×2 (02:05→14:16)
[2018-05-03] MEDS: D5 IV SCH ×2 (02:05→14:16)
--- NOTE | 2018-05-03 03:00 | NUR ---
NURSE NOTES: Bed bath given at this time. patient turned and repositioned. patient noted to desaturated when turned to 77%. RT marly at the bedside. Will continue to monitor
[2018-05-03] MEDS ORDERED: Levophed 4mg/4mL Inj IV ONE (03:55)
--- NOTE | 2018-05-03 05:00 | NUR ---
NURSE NOTES: BS 135, coverage given as per eMAR. Sats 100%. Fio2 70%. Continues on Levophed 2mcg/min, Dopamine 2 mcg/min. Will continue to monitor.
[2018-05-03] MEDS: Vasopressin 100 UNITS in NS 95 ML IV SCH (05:18)
--- NOTE | 2018-05-03 06:40 | NUR ---
NURSE NOTES: MD Griffin called and ordered labs at this time
--- NOTE | 2018-05-03 06:43 | General Progress Note ---
Assessment/Plan Problem List: (1) Acute respiratory failure ICD Codes: J96.00 - Acute respiratory failure, unspecified whether with hypoxia or hypercapnia SNOMED: 75584420 (2) Diabetes ICD Codes: E11.9 - Type 2 diabetes mellitus without complications SNOMED: 64292806 (3) Diabetic nephropathy ICD Codes: E11.21 - Type 2 diabetes mellitus with diabetic nephropathy SNOMED: 587999969 (4) Renal failure (ARF), acute on chronic ICD Codes: N17.9 - Acute kidney failure, unspecified; N18.9 - Chronic kidney disease, unspecified SNOMED: 981266538 (5) Alcohol abuse ICD Codes: F10.10 - Alcohol abuse, uncomplicated SNOMED: 07326015 (6) Anemia ICD Codes: D64.9 - Anemia, unspecified SNOMED: 061496510 (7) Alcohol withdrawal ICD Codes: F10.239 - Alcohol dependence with withdrawal, unspecified SNOMED: 986102835 (8) Epileptic seizure, generalized ICD Codes: G40.309 - Generalized idiopathic epilepsy and epileptic syndromes, not intractable, without status epilepticus SNOMED: 62859464 Assessment/Plan continue Novolog sliding scale every 4 hours continue Levemir 15 units bid Subjective ROS Limited/Unobtainable: Yes Allergies: Coded Allergies: No Known Allergies (Unverified , 04/24/18) Subjective events noted Item Value Date Time Bedside Blood Glucose 132 mg/dl H 05/03/18 0518 Bedside Blood Glucose 205 mg/dl H 05/03/18 0016 Bedside Blood Glucose 250 mg/dl H 05/02/18 2056 Bedside Blood Glucose 313 mg/dl H 05/02/18 1806 Bedside Blood Glucose 300 mg/dl H 05/02/18 1311 Bedside Blood Glucose 304 mg/dl H 05/02/18 1040 Bedside Blood Glucose 310 mg/dl H 05/02/18 0500 Objective Last 24 Hour Vital Signs Date Time Temp Pulse Resp B/P (MAP) Pulse Ox O2 Delivery O2 Flow Rate FiO2 05/03/18 06:00 71 30 97/60 (72) 98 05/03/18 05:45 71 30 95/62 (73) 97 05/03/18 05:30 70 30 96/61 (73) 98 05/03/18 05:15 71 30 98/60 (73) 97 05/03/18 05:12 71 30 70 05/03/18 05:00 72 30 107/65 (79) 95 05/03/18 04:45 73 30 105/65 (78) 92 05/03/18 04:30 73 30 91 05/03/18 04:15 74 30 100/62 (75) 92 05/03/18 04:00 98.1 74 30 93/56 (68) 92 05/03/18 04:00 Mechanical Ventilator 05/03/18 04:00 75 05/03/18 04:00 70 05/03/18 03:45 75 32 102/62 (75) 100 05/03/18 03:30 73 29 97/59 (72) 99 05/03/18 03:15 74 30 102/65 (77) 100 05/03/18 03:00 74 30 96/61 (73) 100 05/03/18 02:49 74 30 70 05/03/18 02:45 74 30 98/65 (76) 100 05/03/18 02:30 74 30 98/62 (74) 100 05/03/18 02:15 74 30 96/61 (73) 100 05/03/18 02:00 76 30 116/71 (86) 100 05/03/18 01:45 76 30 117/71 (86) 100 05/03/18 01:30 76 30 115/69 (84) 100 05/03/18 01:17 75 30 78/52 (61) 100 05/03/18 01:15 75 30 79/52 (61) 100 05/03/18 01:00 98.1 76 30 105/68 (80) 100 05/03/18 00:45 76 30 101/66 (78) 100 05/03/18 00:39 76 30 80 05/03/18 00:30 77 30 97/63 (74) 100 05/03/18 00:15 77 30 98/65 (76) 100 05/03/18 00:00 Mechanical Ventilator 05/03/18 00:00 77 30 101/66 (78) 100 05/03/18 00:00 85 05/03/18 00:00 76 05/02/18 23:45 78 30 124/76 (92) 100 05/02/18 23:30 84 30 158/88 (111) 100 05/02/18 23:15 84 30 157/87 (110) 100 05/02/18 23:00 84 30 155/84 (107) 100 05/02/18 22:45 84 30 153/89 (110) 100 05/02/18 22:37 84 30 85 05/02/18 22:30 84 30 152/87 (108) 100 05/02/18 22:15 84 30 154/87 (109) 100 05/02/18 22:00 84 30 153/86 (108) 100 05/02/18 21:45 85 30 152/89 (110) 100 05/02/18 21:30 84 30 139/82 (101) 98 05/02/18 21:15 84 30 127/80 (96) 100 05/02/18 21:00 84 30 126/77 (93) 100 05/02/18 20:45 87 30 134/80 (98) 100 05/02/18 20:32 89 30 90 05/02/18 20:30 89 29 141/81 (101) 100 05/02/18 20:15 92 30 165/89 (114) 100 05/02/18 20:00 90 30 163/90 (114) 100 05/02/18 20:00 Mechanical Ventilator 05/02/18 20:00 90 05/02/18 20:00 100 05/02/18 19:45 89 30 154/87 (109) 100 05/02/18 19:38 91 30 164/92 (116) 100 05/02/18 19:30 90 30 166/92 (116) 100 05/02/18 19:15 97.9 90 30 164/90 (114) 100 05/02/18 19:08 90 30 90 05/02/18 19:00 89 30 166/94 (118) 100 05/02/18 19:00 166/94 05/02/18 18:57 166/94 05/02/18 18:45 165/88 05/02/18 18:30 167/80 05/02/18 18:16 173/81 05/02/18 18:00 173/81 05/02/18 18:00 173/81 05/02/18 17:25 92 30 100 05/02/18 17:00 147/77 05/02/18 17:00 147/77 05/02/18 16:15 92 30 143/77 (99) 99 05/02/18 16:00 93 30 142/73 (96) 100 05/02/18 16:00 Mechanical Ventilator 05/02/18 16:00 142/73 05/02/18 16:00 142/73 05/02/18 16:00 100 05/02/18 16:00 102 05/02/18 15:45 95 30 138/77 (97) 100 05/02/18 15:30 157/81 05/02/18 15:30 157/81 05/02/18 15:30 104 30 157/81 (106) 100 05/02/18 15:15 104 30 160/80 (106) 100 05/02/18 15:00 105 30 161/81 (107) 100 05/02/18 15:00 98 30 100 05/02/18 15:00 161/81 05/02/18 15:00 161/81 05/02/18 14:45 107 30 158/82 (107) 98 05/02/18 14:30 109 30 158/79 (105) 100 05/02/18 14:30 158/79 05/02/18 14:15 111 30 165/88 (113) 99 05/02/18 14:00 165/68 05/02/18 14:00 165/68 05/02/18 14:00 100 30 144/64 (90) 97 05/02/18 13:45 110 30 168/83 (111) 98 05/02/18 13:36 108 30 99 Mechanical Ventilator 100 05/02/18 13:30 109 30 174/89 (117) 100 05/02/18 13:26 112 30 100 Mechanical Ventilator 15.0 100 05/02/18 13:25 112 30 100 05/02/18 13:15 115 30 149/80 (103) 95 05/02/18 13:00 120 30 154/77 (102) 94 05/02/18 13:00 154/77 05/02/18 13:00 154/77 05/02/18 12:45 121 30 148/74 (98) 96 05/02/18 12:30 121 30 149/76 (100) 95 05/02/18 12:15 122 37 150/75 (100) 93 05/02/18 12:00 123 55 155/73 (100) 94 3/20/19 12:00 122 05/02/18 12:00 100 05/02/18 12:00 150/75 05/02/18 12:00 150/75 05/02/18 12:00 Mechanical Ventilator 05/02/18 12:00 123 55 155/73 (100) 94 05/02/18 11:45 121 30 157/75 (102) 96 05/02/18 11:30 98.7 94 30 109/62 (78) 93 05/02/18 11:24 109/62 05/02/18 11:20 66/43 05/02/18 11:20 66/43 05/02/18 11:15 94 30 109/62 (78) 93 05/02/18 11:00 106/58 05/02/18 11:00 106/58 05/02/18 11:00 71 29 77/46 (56) 82 05/02/18 10:45 97 30 110/62 (78) 92 05/02/18 10:30 115 32 100 05/02/18 10:30 110/62 05/02/18 10:30 100 31 111/64 (80) 95 05/02/18 10:19 89 30 92/51 (65) 85 05/02/18 10:15 89 30 90/50 (63) 83 05/02/18 10:00 90/50 05/02/18 10:00 90/50 05/02/18 10:00 100 30 108/56 (73) 88 05/02/18 09:45 104 30 110/59 (76) 85 05/02/18 09:30 116 30 139/62 (87) 88 05/02/18 09:30 110/59 05/02/18 09:21 118 30 100 05/02/18 09:15 120 30 141/66 (91) 89 05/02/18 09:00 128 30 172/75 (107) 87 05/02/18 09:00 141/66 05/02/18 09:00 141/66 05/02/18 08:45 122 30 149/68 (95) 94 05/02/18 08:30 116 29 133/63 (86) 88 05/02/18 08:15 117 30 131/64 (86) 88 05/02/18 08:00 125 05/02/18 08:00 98.5 123 30 122/62 (82) 90 05/02/18 08:00 Mechanical Ventilator 05/02/18 08:00 141/66 05/02/18 08:00 122/62 05/02/18 08:00 136/65 05/02/18 07:16 114 30 100 05/02/18 07:16 116 30 91 Mechanical Ventilator 15.0 100 05/02/18 07:16 116 30 91 Mechanical Ventilator 80 05/02/18 07:00 141/66 05/02/18 07:00 130/66 05/02/18 07:00 127 30 136/65 (88) 87 05/02/18 06:45 127 30 133/65 (87) 83 Intake and Output 05/02/18 05/03/18 19:00 07:00 Intake Total 2140.877 ml 941.267 ml Output Total 185 ml 120 ml Balance 1955.877 ml 821.267 ml Free Water 60 ml IV Total 2080.877 ml 941.267 ml Tube Feeding 0 ml 0 ml Output Urine Total 185 ml 120 ml # Bowel Movements 2 Laboratory Tests 05/02/18 07:26: Arterial Blood pH 7.093*L, Arterial Blood Partial Pressure CO2 63.3*H, Arterial Blood Partial Pressure O2 45.4*L, Arterial Blood HCO3 18.9L, Arterial Blood Oxygen Saturation 77.5*L, Arterial Blood Base Excess -11.1*L, Aaron Test Positive 05/02/18 12:45: Arterial Blood pH 7.172*L, Arterial Blood Partial Pressure CO2 55.8*H, Arterial Blood Partial Pressure O2 51.2L, Arterial Blood HCO3 20.0L, Arterial Blood Oxygen Saturation 85.2*L, Arterial Blood Base Excess -8.5L, Aaron Test Positive 05/02/18 18:40: Arterial Blood pH 7.260L, Arterial Blood Partial Pressure CO2 42.2, Arterial Blood Partial Pressure O2 65.8L, Arterial Blood HCO3 18.5L, Arterial Blood Oxygen Saturation [Pending], Arterial Blood Base Excess -8.2L, Aaron Test Positive 05/03/18 02:00: Stool Occult Blood [Pending] Height (Feet): 5 Height (Inches): 10.00 Weight (Pounds): 165 General Appearance: severe distress Neck: normal alignment Cardiovascular: tachycardia Respiratory/Chest: decreased breath sounds Abdomen: normal bowel sounds Objective Current Medications Medications (Trade) Dose Ordered Sig/Bj Route PRN Reason Start Time Stop Time Status Last Admin Dose Admin Acetaminophen (Tylenol) 650 mg Q4H PRN NG Mild Pain/Temp > 100.5 05/01/18 15:30 05/27/18 21:29 05/02/18 02:43 Acetaminophen (Tylenol) 650 mg Q4H PRN RECTAL Mild Pain (Pain Scale 1-3) 04/27/18 21:30 05/27/18 21:29 04/28/18 14:39 Acyclovir 800 mg/ Sodium Chloride 275 ml @ 275 mls/hr Q24HRS IV 05/02/18 10:00 05/29/18 09:59 05/02/18 11:17 Allopurinol (Zyloprim) 200 mg DAILY NG 04/29/18 09:00 05/28/18 08:59 05/02/18 10:17 Chlorhexidine Gluconate (Lidia-Hex 2%) 1 applic DAILY@2000 TOPIC 05/01/18 20:00 05/31/18 19:59 05/02/18 19:53 Clonidine HCl (Catapres Tab) 0.1 mg Q4H PRN NG bp over 160 syst 05/01/18 15:30 05/26/18 21:29 Dextrose (Dextrose 50%) 25 ml Q30M PRN IV Hypoglycemia 04/29/18 07:30 05/29/18 07:29 Dextrose (Dextrose 50%) 50 ml Q30M PRN IV Hypoglycemia 04/29/18 07:30 05/29/18 07:29 Dopamine HCl/ Dextrose 250 ml @ 0 mls/hr Q24H IV 05/02/18 04:45 06/01/18 04:44 05/02/18 18:16 Folic Acid (Folate) 1 mg DAILY NG 05/02/18 09:00 06/01/18 08:59 05/02/18 10:18 Heparin Sodium (Porcine) (Heparin 5000 units/ml) 5,000 units EVERY 12 HOURS SUBQ 04/28/18 09:00 05/27/18 20:59 05/02/18 20:55 Insulin Aspart (NovoLOG) EVERY 4 HOURS SUBQ 04/29/18 09:00 05/29/18 08:59 05/03/18 05:18 Insulin Detemir (Levemir) 15 units BID SUBQ 05/02/18 09:00 05/29/18 08:59 05/02/18 18:06 Iron Sucrose 100 mg/Sodium Chloride 60 ml @ 240 mls/hr BEDTIME IV 04/30/18 21:00 05/04/18 21:14 05/02/18 20:54 Levetiracetam 250 mg/Sodium Chloride 112.5 ml @ 450 mls/hr Q12HR IV 04/27/18 22:00 05/27/18 21:59 05/02/18 21:15 Lorazepam (Ativan 2mg/ml 1ml) 2 mg Q4H PRN IV For Anxiety 04/30/18 09:45 05/07/18 09:44 05/01/18 03:38 Metoclopramide HCl (Reglan) 10 mg Q6H PRN IVP Nausea & Vomiting 04/27/18 21:30 05/27/18 21:29 Midazolam HCl 100 ml @ 2 mls/hr Q24H IVPB 04/28/18 16:15 05/05/18 16:14 04/30/18 19:55 Midodrine (Pro-Amatine) 2.5 mg Q8H PRN NG bp below 100 syst 05/02/18 15:45 06/01/18 15:44 Multivitamins (Multivitamins) 1 tab DAILY ORAL 05/02/18 09:00 06/01/18 08:59 05/02/18 10:17 Norepinephrine Bitartrate 8 mg/ Dextrose 508 ml @ 0 mls/hr Q24H IV 04/29/18 07:45 05/29/18 07:44 05/02/18 18:57 Ondansetron HCl (Zofran) 4 mg Q6H PRN IVP Nausea & Vomiting 04/27/18 21:30 05/27/18 21:29 Pantoprazole (Protonix) 40 mg EVERY 12 HOURS IVP 04/28/18 09:00 05/25/18 20:59 05/02/18 20:54 Phenytoin 300 mg/ Sodium Chloride 116 ml @ 120 mls/hr DAILY IVPB 04/28/18 09:00 05/28/18 08:59 05/02/18 10:18 Piperacillin Sod/ Tazobactam Sod 3.375 gm/Sodium Chloride 110 ml @ 27.5 mls/hr Q12H IVPB 04/29/18 00:00 05/06/18 00:00 05/02/18 23:42 Sodium Bicarbonate 150 ml/Dextrose/ Sodium Chloride 1,150 ml @ 100 mls/hr [id number] IV 05/02/18 15:00 06/01/18 14:59 05/03/18 02:05 Thiamine HCl 100 mg/Sodium Chloride 56 ml @ 112 mls/hr Q24H IVPB 04/29/18 15:00 05/29/18 14:59 05/02/18 17:27 Vancomycin HCl (Vanco rx to dose) 1 ea DAILY PRN MISC Per rx protocol 05/02/18 12:30 06/01/18 12:29 Vasopressin 100 units/Sodium Chloride 100 ml @ 2.4 mls/hr Q24H IV 05/03/18 05:00 06/02/18 04:59 05/03/18 05:18 Shoaib Ocampo MD May 03, 2018 06:43
--- NOTE | 2018-05-03 07:15 | NUR ---
NURSE NOTES: Called and spoke with lab at this time. notified them that labs were ordered this morning stated they will send a tech up.
--- NOTE | 2018-05-03 07:33 | NUR ---
RESPIRATORY NOTE: received pt on vent, intubated with current vent orders. ETT is 7.5 currently placed 26cm at the lip. pt is in no apparent resp distress at this time but is tachypneic. pt's saturation is ranging from mid 80's to 90's on fio2 of 70%. pt' daughter at bedside with questions. alarms are set and audible, vent is plugged int red outlet with ambu bag at bedside. will cont to monitor.
--- NOTE | 2018-05-03 07:38 | NUR ---
HAND-OFF: Report given to Jade using SBAR.
--- NOTE | 2018-05-03 07:39 | NUR ---
NURSE NOTES: Report received from SHARLA Vernon. No response to pain or shaking. Pupils not reacting. Eyes are closed. Sinus rhythm on monitor and storage bin tender. ETT 7.5/ 26cm at mid lip line. AC 30, TV 550, FiO2 70%, P10, O2 sat 95-96%. No acute respiratory distress noted. Right NGT in place. Meade in pace draining to gravity. Right UA PICC line patent and asymptotic. On Vasopressin 0.04 units/hr, levophed at 2mcg/min, and and Dopamine at 2mcg/kg.min. D51/2NS with 3amp Bicarb is running at 100cc/hr. Generalized edema throughout the body. Bed in lowest position. Side rails up x3. Bed in lowest position. Side rails up x3. Seizure precaution continued. Call light within reach. Will resume plan of care.
[2018-05-03 08:51] LABS: HEMATOCRIT 23.6 % (42.0-52.0); HEMOGLOBIN 8.2 G/DL (14.2-18.0); MEAN CORPUSCULAR VOLUME 92 FL (80-99); PLATELET COUNT 83 K/UL (150-450); RED BLOOD COUNT 2.57 M/UL (4.70-6.10); WHITE BLOOD COUNT 10.6 K/UL (4.8-10.8)
--- NOTE | 2018-05-03 08:52 | NUR ---
NURSE NOTES: Report received from SHARLA Vernon. No response to pain or shaking. Pupils not reacting. Eyes are closed. Sinus rhythm on satellite project site monitor. ETT 7.5/ 26cm at mid lip line. AC 30, TV 550, FiO2 70%, P10, O2 sat 95-96%. No acute respiratory distress noted. Right NGT in place. Meade in pace draining to gravity. Right UA PICC line patent and asymptotic. On Vasopressin 0.04 units/hr, levophed at 2mcg/min, and and Dopamine at 2mcg/kg.min. D51/2NS with 3amp Bicarb is running at 100cc/hr. Generalized edema throughout the body. Bed in lowest position. Side rails up x3. Bed in lowest position. Side rails up x3. Seizure precaution continued. Call light within reach. Will resume plan of care. Addendum: 05/03/18 at 0943 by TRACI VELAZQUEZ RN RN wrong time
[2018-05-03] MEDS: Heparin 5000 units/ml inj SUBQ SCH ×2 (09:00→20:36)
[2018-05-03 09:02] LABS: ANION GAP 11 mmol/L (5-15); BLOOD UREA NITROGEN 79 mg/dL (7-18); CALCIUM 7.7 MG/DL (8.5-10.1); CARBON DIOXIDE 24 MMOL/L (21-32); CHLORIDE 107 MMOL/L (98-107); CREATININE 5.2 MG/DL (0.55-1.30); POTASSIUM 3.1 MMOL/L (3.5-5.1); SODIUM 142 MMOL/L (136-145)
[2018-05-03 09:07] LABS: ALANINE AMINOTRANSFERASE 20 U/L (12-78); ALBUMIN 1.5 G/DL (3.4-5.0); ALBUMIN/GLOBULIN RATIO 0.4 (1.0-2.7); ALKALINE PHOSPHATASE 103 U/L (46-116); ASPARTATE AMINO TRANSFERASE 89 U/L (15-37); BILIRUBIN,TOTAL 0.7 MG/DL (0.2-1.0)
[2018-05-03] MEDS: NS IV SCH ×3 (09:27→21:31)
[2018-05-03] MEDS: Pantoprazole Inj IVP SCH ×2 (09:27→20:27)
[2018-05-03] MEDS: LEVETIRACETAM IV SCH ×2 (09:27→21:31)
[2018-05-03] MEDS: PHENYTOIN IVPB SCH (09:28)
[2018-05-03] MEDS: Allopurinol 100mg Tab NG SCH (09:28)
[2018-05-03] MEDS: NS IVPB SCH (09:28)
[2018-05-03] MEDS: Levemir Flexpen SUBQ SCH ×2 (09:29→16:41)
--- NOTE | 2018-05-03 09:41 | NUR ---
05/04 Concerning MRI, spoke to RN, still unstable, on vent, on 3 pressors. tjb [id number]
--- NOTE | 2018-05-03 09:42 | NUR ---
NURSE NOTES: Notified Dr Griffin regarding ABG result. Also notified that RT increased FiO2 from 70% to 100%. Awaiting call back for new orders.
--- NOTE | 2018-05-03 10:02 | NUR ---
NURSE NOTES: Dr Griffin ordered to redraw ABG. Notified RT.
--- NOTE | 2018-05-03 10:33 | NUR ---
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
--- NOTE | 2018-05-03 10:51 | NUR ---
NURSE NOTES: Left a message for Dr Griffin regarding the redrawn ABG result. O2 sat 98% on FiO2 100%. Awaiting call back for new orders.
[2018-05-03] MEDS: ACYCLOVIR IV SCH (11:11)
--- NOTE | 2018-05-03 11:42 | Nephrology Progress Note ---
Assessment/Plan Problem List: (1) Renal failure (ARF), acute on chronic Assessment: Cr rising (2) Diabetic nephropathy (3) Epileptic seizure, generalized (4) Alcohol abuse (5) Anemia (6) Acute respiratory failure Assessment Renal failure- Acute on Chronic Cr rising Anemia HTN by History MJ abuse Etoh abuse DM / Proteinuria : Nephropathy Fever , etiology? Plan coded for low HR 05/01 on Van co Zosyn , Acyclovir placement of temp dialysis cath and dialyse hold vanco and adjust dose by myself Nepro feeding Adjust Acyclovir dose per Neuro request avoid Nephrotoxics keep BP and BS in check AMIRA kidney noted 2D echo noted Urine studies pending fluid challenge as needed Allopurinol monitor renal parameters K and Phos and Mag as needed monitor Dilantin level Per orders Subjective ROS Limited/Unobtainable: Yes Objective Objective Last 24 Hour Vital Signs Date Time Temp Pulse Resp B/P (MAP) Pulse Ox O2 Delivery O2 Flow Rate FiO2 05/03/18 11:00 72 30 114/63 (80) 97 05/03/18 11:00 114/63 05/03/18 11:00 114/63 05/03/18 10:51 72 30 70 05/03/18 10:30 72 30 113/66 (82) 93 05/03/18 10:00 112/66 05/03/18 10:00 112/66 05/03/18 10:00 71 30 112/66 (81) 100 05/03/18 09:30 71 30 108/62 (77) 95 05/03/18 09:00 103/63 05/03/18 09:00 103/63 05/03/18 09:00 72 30 103/63 (76) 95 05/03/18 08:54 71 05/03/18 08:50 72 30 70 05/03/18 08:30 73 30 121/54 (76) 95 05/03/18 08:15 72 30 112/64 (80) 97 05/03/18 08:00 70 05/03/18 08:00 71 30 97/54 (68) 98 05/03/18 08:00 71 30 97/54 (68) 98 05/03/18 08:00 97/54 05/03/18 08:00 97/54 05/03/18 08:00 Mechanical Ventilator 3/21/19 07:45 71 30 89/53 (65) 97 05/03/18 07:30 97.8 70 28 86/53 (64) 91 05/03/18 07:30 86/53 05/03/18 07:27 70 30 70 05/03/18 07:00 72 30 98/68 (78) 95 05/03/18 06:45 73 30 117/70 (86) 98 05/03/18 06:30 72 30 110/68 (82) 98 05/03/18 06:22 70 30 86/56 (66) 95 05/03/18 06:20 70 30 89/57 (68) 97 05/03/18 06:15 70 30 89/57 (68) 96 05/03/18 06:00 71 30 97/60 (72) 98 05/03/18 05:45 71 30 95/62 (73) 97 05/03/18 05:30 70 30 96/61 (73) 98 05/03/18 05:15 71 30 98/60 (73) 97 05/03/18 05:12 71 30 70 05/03/18 05:00 72 30 107/65 (79) 95 05/03/18 04:45 73 30 105/65 (78) 92 05/03/18 04:30 73 30 91 05/03/18 04:15 74 30 100/62 (75) 92 05/03/18 04:00 98.1 74 30 93/56 (68) 92 05/03/18 04:00 Mechanical Ventilator 05/03/18 04:00 75 05/03/18 04:00 70 05/03/18 03:45 75 32 102/62 (75) 100 05/03/18 03:30 73 29 97/59 (72) 99 05/03/18 03:15 74 30 102/65 (77) 100 05/03/18 03:00 74 30 96/61 (73) 100 05/03/18 02:49 74 30 70 05/03/18 02:45 74 30 98/65 (76) 100 05/03/18 02:30 74 30 98/62 (74) 100 05/03/18 02:15 74 30 96/61 (73) 100 05/03/18 02:00 76 30 116/71 (86) 100 05/03/18 01:45 76 30 117/71 (86) 100 05/03/18 01:30 76 30 115/69 (84) 100 05/03/18 01:17 75 30 78/52 (61) 100 05/03/18 01:15 75 30 79/52 (61) 100 05/03/18 01:00 98.1 76 30 105/68 (80) 100 05/03/18 00:45 76 30 101/66 (78) 100 05/03/18 00:39 76 30 80 05/03/18 00:30 77 30 97/63 (74) 100 05/03/18 00:15 77 30 98/65 (76) 100 05/03/18 00:00 Mechanical Ventilator 05/03/18 00:00 77 30 101/66 (78) 100 05/03/18 00:00 85 05/03/18 00:00 76 05/02/18 23:45 78 30 124/76 (92) 100 05/02/18 23:30 84 30 158/88 (111) 100 05/02/18 23:15 84 30 157/87 (110) 100 05/02/18 23:00 84 30 155/84 (107) 100 05/02/18 22:45 84 30 153/89 (110) 100 05/02/18 22:37 84 30 85 05/02/18 22:30 84 30 152/87 (108) 100 05/02/18 22:15 84 30 154/87 (109) 100 05/02/18 22:00 84 30 153/86 (108) 100 05/02/18 21:45 85 30 152/89 (110) 100 05/02/18 21:30 84 30 139/82 (101) 98 05/02/18 21:15 84 30 127/80 (96) 100 05/02/18 21:00 84 30 126/77 (93) 100 05/02/18 20:45 87 30 134/80 (98) 100 05/02/18 20:32 89 30 90 05/02/18 20:30 89 29 141/81 (101) 100 05/02/18 20:15 92 30 165/89 (114) 100 05/02/18 20:00 90 30 163/90 (114) 100 05/02/18 20:00 Mechanical Ventilator 05/02/18 20:00 90 05/02/18 20:00 100 05/02/18 19:45 89 30 154/87 (109) 100 05/02/18 19:38 91 30 164/92 (116) 100 05/02/18 19:30 90 30 166/92 (116) 100 05/02/18 19:15 97.9 90 30 164/90 (114) 100 05/02/18 19:08 90 30 90 05/02/18 19:00 89 30 166/94 (118) 100 05/02/18 19:00 166/94 05/02/18 18:57 166/94 05/02/18 18:45 165/88 05/02/18 18:30 167/80 05/02/18 18:16 173/81 05/02/18 18:00 173/81 05/02/18 18:00 173/81 05/02/18 17:25 92 30 100 05/02/18 17:00 147/77 05/02/18 17:00 147/77 05/02/18 16:15 92 30 143/77 (99) 99 05/02/18 16:00 93 30 142/73 (96) 100 05/02/18 16:00 Mechanical Ventilator 05/02/18 16:00 142/73 05/02/18 16:00 142/73 05/02/18 16:00 100 05/02/18 16:00 102 05/02/18 15:45 95 30 138/77 (97) 100 05/02/18 15:30 157/81 05/02/18 15:30 157/81 05/02/18 15:30 104 30 157/81 (106) 100 05/02/18 15:15 104 30 160/80 (106) 100 05/02/18 15:00 105 30 161/81 (107) 100 05/02/18 15:00 98 30 100 05/02/18 15:00 161/81 05/02/18 15:00 161/81 05/02/18 14:45 107 30 158/82 (107) 98 05/02/18 14:30 109 30 158/79 (105) 100 05/02/18 14:30 158/79 05/02/18 14:15 111 30 165/88 (113) 99 05/02/18 14:00 165/68 05/02/18 14:00 165/68 05/02/18 14:00 100 30 144/64 (90) 97 05/02/18 13:45 110 30 168/83 (111) 98 05/02/18 13:36 108 30 99 Mechanical Ventilator 100 05/02/18 13:30 109 30 174/89 (117) 100 05/02/18 13:26 112 30 100 Mechanical Ventilator 15.0 100 05/02/18 13:25 112 30 100 05/02/18 13:15 115 30 149/80 (103) 95 05/02/18 13:00 120 30 154/77 (102) 94 05/02/18 13:00 154/77 05/02/18 13:00 154/77 05/02/18 12:45 121 30 148/74 (98) 96 05/02/18 12:30 121 30 149/76 (100) 95 05/02/18 12:15 122 37 150/75 (100) 93 05/02/18 12:00 123 55 155/73 (100) 94 05/02/18 12:00 122 05/02/18 12:00 100 05/02/18 12:00 150/75 05/02/18 12:00 150/75 05/02/18 12:00 Mechanical Ventilator 05/02/18 12:00 123 55 155/73 (100) 94 05/02/18 11:45 121 30 157/75 (102) 96 Intake and Output 05/02/18 05/03/18 18:59 06:59 Intake Total 2349.957 ml 1331.495 ml Output Total 180 ml 125 ml Balance 2169.957 ml 1206.495 ml Free Water 60 ml IV Total 2289.957 ml 1331.495 ml Tube Feeding 0 ml 0 ml Output Urine Total 180 ml 125 ml # Bowel Movements 2 Laboratory Tests 05/02/18 12:45: Arterial Blood pH 7.172*L, Arterial Blood Partial Pressure CO2 55.8*H, Arterial Blood Partial Pressure O2 51.2L, Arterial Blood HCO3 20.0L, Arterial Blood Oxygen Saturation 85.2*L, Arterial Blood Base Excess -8.5L, Aaron Test Positive 05/02/18 18:40: Arterial Blood pH 7.260L, Arterial Blood Partial Pressure CO2 42.2, Arterial Blood Partial Pressure O2 65.8L, Arterial Blood HCO3 18.5L, Arterial Blood Oxygen Saturation , Arterial Blood Base Excess -8.2L, Aaron Test Positive 05/03/18 02:00: Stool Occult Blood Positive 05/03/18 08:30: Arterial Blood pH 7.350, Arterial Blood Partial Pressure CO2 44.4, Arterial Blood Partial Pressure O2 37.9*L, Arterial Blood HCO3 24.0, Arterial Blood Oxygen Saturation 75.4*L, Arterial Blood Base Excess -1.6, Aaron Test Positive, White Blood Count 10.6, Red Blood Count 2.57L, Hemoglobin 8.2L, Hematocrit 23.6L , Mean Corpuscular Volume 92, Mean Corpuscular Hemoglobin 31.8H, Mean Corpuscular Hemoglobin Concent 34.6, Red Cell Distribution Width 13.0, Platelet Count 83L, Mean Platelet Volume 7.0, Neutrophils (%) (Auto) , Lymphocytes (%) ( Auto) , Monocytes (%) (Auto) , Eosinophils (%) (Auto) , Basophils (%) (Auto) , Differential Total Cells Counted 100, Neutrophils % (Manual) 89H, Lymphocytes % (Manual) 5L, Monocytes % (Manual) 4, Eosinophils % (Manual) 2, Basophils % ( Manual) 0, Band Neutrophils 0, Platelet Estimate DecreasedL, Platelet Morphology Normal, Sodium Level 142, Potassium Level 3.1L, Chloride Level 107, Carbon Dioxide Level 24, Anion Gap 11, Blood Urea Nitrogen 79H, Creatinine 5.2H , Estimat Glomerular Filtration Rate 11.5, Glucose Level 154#H, Calcium Level 7.7L, Total Bilirubin 0.7, Aspartate Amino Transf (AST/SGOT) 89H, Alanine Aminotransferase (ALT/SGPT) 20, Alkaline Phosphatase 103, Total Protein 5.0L, Albumin 1.5L, Globulin 3.5, Albumin/Globulin Ratio 0.4L, Hepatitis A IgM Antibody [Pending], Hepatitis B Surface Antigen [Pending], Hepatitis B Core IgM Antibody [Pending], Hepatitis C Antibody [Pending] 05/03/18 10:21: Arterial Blood pH 7.350, Arterial Blood Partial Pressure CO2 43.3, Arterial Blood Partial Pressure O2 < 45.3*L, Arterial Blood HCO3 23.4, Arterial Blood Oxygen Saturation 71.6*L, Arterial Blood Base Excess -2.2L, Aaron Test Positive Height (Feet): 5 Height (Inches): 10.00 Weight (Pounds): 170 EENT: other - vented Cardiovascular: normal rate Respiratory/Chest: decreased breath sounds Abdomen: distended Deon Rojas MD May 03, 2018 11:42
--- NOTE | 2018-05-03 12:34 | General Progress Note ---
Assessment/Plan Problem List: (1) Renal insufficiency ICD Codes: N28.9 - Disorder of kidney and ureter, unspecified SNOMED: 747416970, 620532754 (2) Marijuana abuse ICD Codes: F12.10 - Cannabis abuse, uncomplicated SNOMED: 53531704 (3) Anemia ICD Codes: D64.9 - Anemia, unspecified SNOMED: 928433177 (4) Alcohol abuse ICD Codes: F10.10 - Alcohol abuse, uncomplicated SNOMED: 28526459 (5) Epileptic seizure, generalized ICD Codes: G40.309 - Generalized idiopathic epilepsy and epileptic syndromes, not intractable, without status epilepticus SNOMED: 72711584 (6) Diabetic nephropathy ICD Codes: E11.21 - Type 2 diabetes mellitus with diabetic nephropathy SNOMED: 819843623 Assessment/Plan monitor labs icu care fu pulm TF on hold neuro notes appreciated>>? brain poor prognosis Subjective ROS Limited/Unobtainable: No Allergies: Coded Allergies: No Known Allergies (Unverified , 04/24/18) Subjective intubated coded this morning on pressor Objective Last 24 Hour Vital Signs Date Time Temp Pulse Resp B/P (MAP) Pulse Ox O2 Delivery O2 Flow Rate FiO2 05/03/18 12:00 71 30 102/56 (71) 97 05/03/18 12:00 73 05/03/18 12:00 Mechanical Ventilator 05/03/18 12:00 100 05/03/18 11:00 72 30 114/63 (80) 97 05/03/18 11:00 114/63 05/03/18 11:00 114/63 05/03/18 10:51 72 30 70 05/03/18 10:30 72 30 113/66 (82) 93 05/03/18 10:00 112/66 05/03/18 10:00 112/66 05/03/18 10:00 71 30 112/66 (81) 100 05/03/18 09:30 71 30 108/62 (77) 95 05/03/18 09:00 103/63 05/03/18 09:00 103/63 05/03/18 09:00 72 30 103/63 (76) 95 05/03/18 08:54 71 05/03/18 08:50 72 30 70 05/03/18 08:30 73 30 121/54 (76) 95 05/03/18 08:15 72 30 112/64 (80) 97 05/03/18 08:00 70 05/03/18 08:00 71 30 97/54 (68) 98 05/03/18 08:00 71 30 97/54 (68) 98 05/03/18 08:00 97/54 05/03/18 08:00 97/54 05/03/18 08:00 Mechanical Ventilator 05/03/18 07:45 71 30 89/53 (65) 97 05/03/18 07:30 97.8 70 28 86/53 (64) 91 05/03/18 07:30 86/53 05/03/18 07:27 70 30 70 05/03/18 07:00 72 30 98/68 (78) 95 05/03/18 06:45 73 30 117/70 (86) 98 05/03/18 06:30 72 30 110/68 (82) 98 05/03/18 06:22 70 30 86/56 (66) 95 05/03/18 06:20 70 30 89/57 (68) 97 05/03/18 06:15 70 30 89/57 (68) 96 05/03/18 06:00 71 30 97/60 (72) 98 05/03/18 05:45 71 30 95/62 (73) 97 05/03/18 05:30 70 30 96/61 (73) 98 05/03/18 05:15 71 30 98/60 (73) 97 05/03/18 05:12 71 30 70 05/03/18 05:00 72 30 107/65 (79) 95 05/03/18 04:45 73 30 105/65 (78) 92 05/03/18 04:30 73 30 91 05/03/18 04:15 74 30 100/62 (75) 92 05/03/18 04:00 98.1 74 30 93/56 (68) 92 05/03/18 04:00 Mechanical Ventilator 05/03/18 04:00 75 05/03/18 04:00 70 05/03/18 03:45 75 32 102/62 (75) 100 05/03/18 03:30 73 29 97/59 (72) 99 05/03/18 03:15 74 30 102/65 (77) 100 05/03/18 03:00 74 30 96/61 (73) 100 05/03/18 02:49 74 30 70 05/03/18 02:45 74 30 98/65 (76) 100 05/03/18 02:30 74 30 98/62 (74) 100 05/03/18 02:15 74 30 96/61 (73) 100 05/03/18 02:00 76 30 116/71 (86) 100 05/03/18 01:45 76 30 117/71 (86) 100 05/03/18 01:30 76 30 115/69 (84) 100 05/03/18 01:17 75 30 78/52 (61) 100 05/03/18 01:15 75 30 79/52 (61) 100 05/03/18 01:00 98.1 76 30 105/68 (80) 100 05/03/18 00:45 76 30 101/66 (78) 100 05/03/18 00:39 76 30 80 05/03/18 00:30 77 30 97/63 (74) 100 05/03/18 00:15 77 30 98/65 (76) 100 05/03/18 00:00 Mechanical Ventilator 05/03/18 00:00 77 30 101/66 (78) 100 05/03/18 00:00 85 05/03/18 00:00 76 05/02/18 23:45 78 30 124/76 (92) 100 05/02/18 23:30 84 30 158/88 (111) 100 05/02/18 23:15 84 30 157/87 (110) 100 05/02/18 23:00 84 30 155/84 (107) 100 05/02/18 22:45 84 30 153/89 (110) 100 05/02/18 22:37 84 30 85 05/02/18 22:30 84 30 152/87 (108) 100 05/02/18 22:15 84 30 154/87 (109) 100 05/02/18 22:00 84 30 153/86 (108) 100 05/02/18 21:45 85 30 152/89 (110) 100 05/02/18 21:30 84 30 139/82 (101) 98 05/02/18 21:15 84 30 127/80 (96) 100 05/02/18 21:00 84 30 126/77 (93) 100 05/02/18 20:45 87 30 134/80 (98) 100 05/02/18 20:32 89 30 90 05/02/18 20:30 89 29 141/81 (101) 100 05/02/18 20:15 92 30 165/89 (114) 100 05/02/18 20:00 90 30 163/90 (114) 100 05/02/18 20:00 Mechanical Ventilator 05/02/18 20:00 90 05/02/18 20:00 100 05/02/18 19:45 89 30 154/87 (109) 100 05/02/18 19:38 91 30 164/92 (116) 100 05/02/18 19:30 90 30 166/92 (116) 100 05/02/18 19:15 97.9 90 30 164/90 (114) 100 05/02/18 19:08 90 30 90 05/02/18 19:00 89 30 166/94 (118) 100 05/02/18 19:00 166/94 05/02/18 18:57 166/94 05/02/18 18:45 165/88 05/02/18 18:30 167/80 05/02/18 18:16 173/81 05/02/18 18:00 173/81 05/02/18 18:00 173/81 05/02/18 17:25 92 30 100 05/02/18 17:00 147/77 05/02/18 17:00 147/77 05/02/18 16:15 92 30 143/77 (99) 99 05/02/18 16:00 93 30 142/73 (96) 100 05/02/18 16:00 Mechanical Ventilator 05/02/18 16:00 142/73 05/02/18 16:00 142/73 05/02/18 16:00 100 05/02/18 16:00 102 05/02/18 15:45 95 30 138/77 (97) 100 05/02/18 15:30 157/81 05/02/18 15:30 157/81 05/02/18 15:30 104 30 157/81 (106) 100 05/02/18 15:15 104 30 160/80 (106) 100 05/02/18 15:00 105 30 161/81 (107) 100 05/02/18 15:00 98 30 100 05/02/18 15:00 161/81 05/02/18 15:00 161/81 05/02/18 14:45 107 30 158/82 (107) 98 05/02/18 14:30 109 30 158/79 (105) 100 05/02/18 14:30 158/79 05/02/18 14:15 111 30 165/88 (113) 99 05/02/18 14:00 165/68 05/02/18 14:00 165/68 05/02/18 14:00 100 30 144/64 (90) 97 05/02/18 13:45 110 30 168/83 (111) 98 05/02/18 13:36 108 30 99 Mechanical Ventilator 100 05/02/18 13:30 109 30 174/89 (117) 100 05/02/18 13:26 112 30 100 Mechanical Ventilator 15.0 100 05/02/18 13:25 112 30 100 05/02/18 13:15 115 30 149/80 (103) 95 05/02/18 13:00 120 30 154/77 (102) 94 05/02/18 13:00 154/77 05/02/18 13:00 154/77 05/02/18 12:45 121 30 148/74 (98) 96 Intake and Output 05/02/18 05/03/18 18:59 06:59 Intake Total 2349.957 ml 1331.495 ml Output Total 180 ml 125 ml Balance 2169.957 ml 1206.495 ml Free Water 60 ml IV Total 2289.957 ml 1331.495 ml Tube Feeding 0 ml 0 ml Output Urine Total 180 ml 125 ml # Bowel Movements 2 Laboratory Tests 05/02/18 12:45: Arterial Blood pH 7.172*L, Arterial Blood Partial Pressure CO2 55.8*H, Arterial Blood Partial Pressure O2 51.2L, Arterial Blood HCO3 20.0L, Arterial Blood Oxygen Saturation 85.2*L, Arterial Blood Base Excess -8.5L, Aaron Test Positive 05/02/18 18:40: Arterial Blood pH 7.260L, Arterial Blood Partial Pressure CO2 42.2, Arterial Blood Partial Pressure O2 65.8L, Arterial Blood HCO3 18.5L, Arterial Blood Oxygen Saturation , Arterial Blood Base Excess -8.2L, Aaron Test Positive 05/03/18 02:00: Stool Occult Blood Positive 05/03/18 08:30: Arterial Blood pH 7.350, Arterial Blood Partial Pressure CO2 44.4, Arterial Blood Partial Pressure O2 37.9*L, Arterial Blood HCO3 24.0, Arterial Blood Oxygen Saturation 75.4*L, Arterial Blood Base Excess -1.6, Aaron Test Positive, White Blood Count 10.6, Red Blood Count 2.57L, Hemoglobin 8.2L, Hematocrit 23.6L , Mean Corpuscular Volume 92, Mean Corpuscular Hemoglobin 31.8H, Mean Corpuscular Hemoglobin Concent 34.6, Red Cell Distribution Width 13.0, Platelet Count 83L, Mean Platelet Volume 7.0, Neutrophils (%) (Auto) , Lymphocytes (%) ( Auto) , Monocytes (%) (Auto) , Eosinophils (%) (Auto) , Basophils (%) (Auto) , Differential Total Cells Counted 100, Neutrophils % (Manual) 89H, Lymphocytes % (Manual) 5L, Monocytes % (Manual) 4, Eosinophils % (Manual) 2, Basophils % ( Manual) 0, Band Neutrophils 0, Platelet Estimate DecreasedL, Platelet Morphology Normal, Sodium Level 142, Potassium Level 3.1L, Chloride Level 107, Carbon Dioxide Level 24, Anion Gap 11, Blood Urea Nitrogen 79H, Creatinine 5.2H , Estimat Glomerular Filtration Rate 11.5, Glucose Level 154#H, Calcium Level 7.7L, Total Bilirubin 0.7, Aspartate Amino Transf (AST/SGOT) 89H, Alanine Aminotransferase (ALT/SGPT) 20, Alkaline Phosphatase 103, C-Reactive Protein, Quantitative 27.2H, Total Protein 5.0L, Albumin 1.5L, Globulin 3.5, Albumin/ Globulin Ratio 0.4L, Hepatitis A IgM Antibody [Pending], Hepatitis B Surface Antigen [Pending], Hepatitis B Core IgM Antibody [Pending], Hepatitis C Antibody [Pending] 05/03/18 10:21: Arterial Blood pH 7.350, Arterial Blood Partial Pressure CO2 43.3, Arterial Blood Partial Pressure O2 < 45.3*L, Arterial Blood HCO3 23.4, Arterial Blood Oxygen Saturation 71.6*L, Arterial Blood Base Excess -2.2L, Aaron Test Positive Height (Feet): 5 Height (Inches): 10.00 Weight (Pounds): 170 General Appearance: lethargic EENT: pale conjunctivae Neck: supple Cardiovascular: regular rhythm Respiratory/Chest: decreased breath sounds Abdomen: normal bowel sounds, non tender, soft Extremities: non-tender Tyler Jarrett MD May 03, 2018 12:34
[2018-05-03] MEDS ORDERED: Albuterol/Ipratropium 3ml neb HHN PRN (12:45)
--- NOTE | 2018-05-03 12:45 | NUR ---
NURSE NOTES: Dr Griffin here to see the patient. Updated him with pt's current condition. He is talking to Dr [place] regarding Dialysis line in the nursing station.
--- NOTE | 2018-05-03 12:45 | Pulmonolgy Critical Care Note ---
Critical Care - Asmt/Plan Problems: (1) ARDS (adult respiratory distress syndrome) (2) Shock (3) Aspiration pneumonia (4) Bilateral pneumonia (5) Hypoxemia (6) Renal failure (ARF), acute on chronic (7) Diabetic nephropathy (8) Epileptic seizure, generalized (9) Marijuana abuse (10) Alcohol abuse (11) Alcohol withdrawal (12) Anemia Assessment/Plan: -Continue ventilatory support/settings reviewed/lung protective ventilation -Titrate down FiO2 and then PEEP to keep SaO2 > 90% -Versed gtt held, per neuro check levels before formal brain eval -Keppra/Dilantin, F/U neuro recs -Vaso 0.04, Titrate NE and DA as able to keep MAP > 60 -Consider D/C IVF given improved gas exchange, oliguria and plan for HD -CVVHD not available @ [facility] [place], plan for HD per renal -Abx (Zosyn, Vanco) & Acyclovir per ID, F/U Cx's, may need bronch -RTC and PRN DUOnebs -Monitor gas exchange -Resume TF's -Monitor BS, SQ insulin, F/U ENDO recs -Monitor volumes, F/U renal recs -MVI/thiamine/Folate -F/U GI and heme recs Re: anemia -DVT Px: Hep SQ -Keep in ICU, transfer to [facility] when/if clinically stable -FC, prognosis poor CCT 60 D/W Family D/W 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 and RT Time Spent (Minutes): 60 Critical Care - Objective Last 24 Hour Vital Signs Date Time Temp Pulse Resp B/P (MAP) Pulse Ox O2 Delivery O2 Flow Rate FiO2 05/03/18 12:00 71 30 102/56 (71) 97 05/03/18 12:00 73 05/03/18 12:00 Mechanical Ventilator 05/03/18 12:00 100 05/03/18 11:00 72 30 114/63 (80) 97 05/03/18 11:00 114/63 05/03/18 11:00 114/63 05/03/18 10:51 72 30 70 05/03/18 10:30 72 30 113/66 (82) 93 05/03/18 10:00 112/66 05/03/18 10:00 112/66 05/03/18 10:00 71 30 112/66 (81) 100 05/03/18 09:30 71 30 108/62 (77) 95 05/03/18 09:00 103/63 05/03/18 09:00 103/63 05/03/18 09:00 72 30 103/63 (76) 95 05/03/18 08:54 71 05/03/18 08:50 72 30 70 05/03/18 08:30 73 30 121/54 (76) 95 05/03/18 08:15 72 30 112/64 (80) 97 05/03/18 08:00 70 05/03/18 08:00 71 30 97/54 (68) 98 05/03/18 08:00 71 30 97/54 (68) 98 05/03/18 08:00 97/54 05/03/18 08:00 97/54 05/03/18 08:00 Mechanical Ventilator 05/03/18 07:45 71 30 89/53 (65) 97 05/03/18 07:30 97.8 70 28 86/53 (64) 91 05/03/18 07:30 86/53 05/03/18 07:27 70 30 70 05/03/18 07:00 72 30 98/68 (78) 95 05/03/18 06:45 73 30 117/70 (86) 98 05/03/18 06:30 72 30 110/68 (82) 98 05/03/18 06:22 70 30 86/56 (66) 95 05/03/18 06:20 70 30 89/57 (68) 97 05/03/18 06:15 70 30 89/57 (68) 96 05/03/18 06:00 71 30 97/60 (72) 98 05/03/18 05:45 71 30 95/62 (73) 97 05/03/18 05:30 70 30 96/61 (73) 98 05/03/18 05:15 71 30 98/60 (73) 97 05/03/18 05:12 71 30 70 05/03/18 05:00 72 30 107/65 (79) 95 05/03/18 04:45 73 30 105/65 (78) 92 05/03/18 04:30 73 30 91 05/03/18 04:15 74 30 100/62 (75) 92 05/03/18 04:00 98.1 74 30 93/56 (68) 92 05/03/18 04:00 Mechanical Ventilator 05/03/18 04:00 75 05/03/18 04:00 70 05/03/18 03:45 75 32 102/62 (75) 100 05/03/18 03:30 73 29 97/59 (72) 99 05/03/18 03:15 74 30 102/65 (77) 100 05/03/18 03:00 74 30 96/61 (73) 100 05/03/18 02:49 74 30 70 05/03/18 02:45 74 30 98/65 (76) 100 05/03/18 02:30 74 30 98/62 (74) 100 05/03/18 02:15 74 30 96/61 (73) 100 05/03/18 02:00 76 30 116/71 (86) 100 05/03/18 01:45 76 30 117/71 (86) 100 05/03/18 01:30 76 30 115/69 (84) 100 05/03/18 01:17 75 30 78/52 (61) 100 05/03/18 01:15 75 30 79/52 (61) 100 05/03/18 01:00 98.1 76 30 105/68 (80) 100 05/03/18 00:45 76 30 101/66 (78) 100 05/03/18 00:39 76 30 80 05/03/18 00:30 77 30 97/63 (74) 100 05/03/18 00:15 77 30 98/65 (76) 100 05/03/18 00:00 Mechanical Ventilator 05/03/18 00:00 77 30 101/66 (78) 100 05/03/18 00:00 85 05/03/18 00:00 76 05/02/18 23:45 78 30 124/76 (92) 100 05/02/18 23:30 84 30 158/88 (111) 100 05/02/18 23:15 84 30 157/87 (110) 100 05/02/18 23:00 84 30 155/84 (107) 100 05/02/18 22:45 84 30 153/89 (110) 100 05/02/18 22:37 84 30 85 05/02/18 22:30 84 30 152/87 (108) 100 05/02/18 22:15 84 30 154/87 (109) 100 05/02/18 22:00 84 30 153/86 (108) 100 05/02/18 21:45 85 30 152/89 (110) 100 05/02/18 21:30 84 30 139/82 (101) 98 05/02/18 21:15 84 30 127/80 (96) 100 05/02/18 21:00 84 30 126/77 (93) 100 05/02/18 20:45 87 30 134/80 (98) 100 05/02/18 20:32 89 30 90 05/02/18 20:30 89 29 141/81 (101) 100 05/02/18 20:15 92 30 165/89 (114) 100 05/02/18 20:00 90 30 163/90 (114) 100 05/02/18 20:00 Mechanical Ventilator 05/02/18 20:00 90 05/02/18 20:00 100 05/02/18 19:45 89 30 154/87 (109) 100 05/02/18 19:38 91 30 164/92 (116) 100 05/02/18 19:30 90 30 166/92 (116) 100 05/02/18 19:15 97.9 90 30 164/90 (114) 100 05/02/18 19:08 90 30 90 05/02/18 19:00 89 30 166/94 (118) 100 05/02/18 19:00 166/94 05/02/18 18:57 166/94 05/02/18 18:45 165/88 05/02/18 18:30 167/80 05/02/18 18:16 173/81 05/02/18 18:00 173/81 05/02/18 18:00 173/81 05/02/18 17:25 92 30 100 05/02/18 17:00 147/77 05/02/18 17:00 147/77 05/02/18 16:15 92 30 143/77 (99) 99 05/02/18 16:00 93 30 142/73 (96) 100 05/02/18 16:00 Mechanical Ventilator 05/02/18 16:00 142/73 05/02/18 16:00 142/73 05/02/18 16:00 100 05/02/18 16:00 102 3/20/19 15:45 95 30 138/77 (97) 100 05/02/18 15:30 157/81 05/02/18 15:30 157/81 05/02/18 15:30 104 30 157/81 (106) 100 05/02/18 15:15 104 30 160/80 (106) 100 05/02/18 15:00 105 30 161/81 (107) 100 05/02/18 15:00 98 30 100 05/02/18 15:00 161/81 05/02/18 15:00 161/81 05/02/18 14:45 107 30 158/82 (107) 98 05/02/18 14:30 109 30 158/79 (105) 100 05/02/18 14:30 158/79 05/02/18 14:15 111 30 165/88 (113) 99 05/02/18 14:00 165/68 05/02/18 14:00 165/68 05/02/18 14:00 100 30 144/64 (90) 97 05/02/18 13:45 110 30 168/83 (111) 98 05/02/18 13:36 108 30 99 Mechanical Ventilator 100 05/02/18 13:30 109 30 174/89 (117) 100 05/02/18 13:26 112 30 100 Mechanical Ventilator 15.0 100 05/02/18 13:25 112 30 100 05/02/18 13:15 115 30 149/80 (103) 95 05/02/18 13:00 120 30 154/77 (102) 94 05/02/18 13:00 154/77 05/02/18 13:00 154/77 05/02/18 12:45 121 30 148/74 (98) 96 Status: obtunded - non responsive on vent no gag Condition: critical HEENT: atraumatic, normocephalic Lungs: rales Heart: HR/BP unstable Abdomen: soft, non-tender, active bowel sounds Extremities: edema - 2+, cyanosis - no, clubbing - no Accucheck: 76 Blood Sugars: BS controlled Critical Care - Subjective ROS Limited/Unobtainable: Yes ICU Day: 7 Intubation Day: 7 Interval Events: Gas exchange improved but concern for brain , neuro wishes to check a versed level before doing a formal brain assessment 7.35/43/<45/23/71 No sig secretions PEEP 10, FiO2 70 Weaning pressors, repeat FOBT + HD ordered Condition: critical IV Access: PICC EKG Rhythm: Sinus Rhythm FI02: 100 Vent Support Breath Rate: 30 Vent Support Mode: AC Vent Tidal Volume: 550 Sputum Amount: Scant PEEP: 10.0 PIP: 38 Secretions: scant Fluids: [id number]@100 Drips: Vaso 0.04, DA 2, NE 4 Tube Feeding Amount: 0 I&O: Intake and Output 05/02/18 05/03/18 18:59 06:59 Intake Total 2349.957 ml 1331.495 ml Output Total 180 ml 125 ml Balance 2169.957 ml 1206.495 ml Free Water 60 ml IV Total 2289.957 ml 1331.495 ml Tube Feeding 0 ml 0 ml Output Urine Total 180 ml 125 ml # Bowel Movements 2 Subjective: KALI CXR: Laboratory Tests Test 05/02/18 12:45 05/02/18 18:40 05/03/18 02:00 05/03/18 08:30 Arterial Blood pH 7.172 (7.350-7.450) 7.260 (7.350-7.450) 7.350 (7.350-7.450) Arterial Blood Partial Pressure CO2 55.8 mmHg (35.0-45.0) *H 42.2 mmHg (35.0-45.0) 44.4 mmHg (35.0-45.0) Arterial Blood Partial Pressure O2 51.2 mmHg (75.0-100.0) L 65.8 mmHg (75.0-100.0) L 37.9 mmHg (75.0-100.0) Arterial Blood HCO3 20.0 mmol/L (22.0-26.0) L 18.5 mmol/L (22.0-26.0) L 24.0 mmol/L (22.0-26.0) Arterial Blood Oxygen Saturation 85.2 % (95-100) *L % (95-100) 75.4 % (95-100) *L Arterial Blood Base Excess -8.5 (-2-2) L -8.2 (-2-2) L -1.6 (-2-2) Aaron Test Positive Positive Positive Stool Occult Blood Positive (NEGATIVE) White Blood Count 10.6 K/UL (4.8-10.8) Red Blood Count 2.57 M/UL (4.70-6.10) L Hemoglobin 8.2 G/DL (14.2-18.0) L Hematocrit 23.6 % (42.0-52.0) L Mean Corpuscular Volume 92 FL (80-99) Mean Corpuscular Hemoglobin 31.8 PG (27.0-31.0) H Mean Corpuscular Hemoglobin Concent 34.6 G/DL (32.0-36.0) Red Cell Distribution Width 13.0 % (11.6-14.8) Platelet Count 83 K/UL (150-450) L Mean Platelet Volume 7.0 FL (6.5-10.1) Neutrophils (%) (Auto) % (45.0-75.0) Lymphocytes (%) (Auto) % (20.0-45.0) Monocytes (%) (Auto) % (1.0-10.0) Eosinophils (%) (Auto) % (0.0-3.0) Basophils (%) (Auto) % (0.0-2.0) Differential Total Cells Counted 100 Neutrophils % (Manual) 89 % (45-75) H Lymphocytes % (Manual) 5 % (20-45) L Monocytes % (Manual) 4 % (1-10) Eosinophils % (Manual) 2 % (0-3) Basophils % (Manual) 0 % (0-2) Band Neutrophils 0 % (0-8) Platelet Estimate Decreased L Platelet Morphology Normal Sodium Level 142 MMOL/L (136-145) Potassium Level 3.1 MMOL/L (3.5-5.1) L Chloride Level 107 MMOL/L (98-107) Carbon Dioxide Level 24 MMOL/L (21-32) Anion Gap 11 mmol/L (5-15) Blood Urea Nitrogen 79 mg/dL (7-18) H Creatinine 5.2 MG/DL (0.55-1.30) H Estimat Glomerular Filtration Rate 11.5 mL/min (>60) Glucose Level 154 MG/DL (74-106) #H Calcium Level 7.7 MG/DL (8.5-10.1) L Total Bilirubin 0.7 MG/DL (0.2-1.0) Aspartate Amino Transf (AST/SGOT) 89 U/L (15-37) H Alanine Aminotransferase (ALT/SGPT) 20 U/L (12-78) Alkaline Phosphatase 103 U/L (46-116) C-Reactive Protein, Quantitative 27.2 mg/dL (0.00-0.90) H Total Protein 5.0 G/DL (6.4-8.2) L Albumin 1.5 G/DL (3.4-5.0) L Globulin 3.5 g/dL Albumin/Globulin Ratio 0.4 (1.0-2.7) L Hepatitis A IgM Antibody Pending Hepatitis B Surface Antigen Pending Hepatitis B Core IgM Antibody Pending Hepatitis C Antibody Pending Test 05/03/18 10:21 Arterial Blood pH 7.350 (7.350-7.450) Arterial Blood Partial Pressure CO2 43.3 mmHg (35.0-45.0) Arterial Blood Partial Pressure O2 < 45.3 mmHg (75.0-100.0) Arterial Blood HCO3 23.4 mmol/L (22.0-26.0) Arterial Blood Oxygen Saturation 71.6 % (95-100) *L Arterial Blood Base Excess -2.2 (-2-2) L Aaron Test Positive ET-Tube: 7.5 ET Position: 26 Labs: Laboratory Tests Test 05/02/18 12:45 05/02/18 18:40 05/03/18 02:00 05/03/18 08:30 Arterial Blood pH 7.172 (7.350-7.450) 7.260 (7.350-7.450) 7.350 (7.350-7.450) Arterial Blood Partial Pressure CO2 55.8 mmHg (35.0-45.0) *H 42.2 mmHg (35.0-45.0) 44.4 mmHg (35.0-45.0) Arterial Blood Partial Pressure O2 51.2 mmHg (75.0-100.0) L 65.8 mmHg (75.0-100.0) L 37.9 mmHg (75.0-100.0) Arterial Blood HCO3 20.0 mmol/L (22.0-26.0) L 18.5 mmol/L (22.0-26.0) L 24.0 mmol/L (22.0-26.0) Arterial Blood Oxygen Saturation 85.2 % (95-100) *L % (95-100) 75.4 % (95-100) *L Arterial Blood Base Excess -8.5 (-2-2) L -8.2 (-2-2) L -1.6 (-2-2) Aaron Test Positive Positive Positive Stool Occult Blood Positive (NEGATIVE) White Blood Count 10.6 K/UL (4.8-10.8) Red Blood Count 2.57 M/UL (4.70-6.10) L Hemoglobin 8.2 G/DL (14.2-18.0) L Hematocrit 23.6 % (42.0-52.0) L Mean Corpuscular Volume 92 FL (80-99) Mean Corpuscular Hemoglobin 31.8 PG (27.0-31.0) H Mean Corpuscular Hemoglobin Concent 34.6 G/DL (32.0-36.0) Red Cell Distribution Width 13.0 % (11.6-14.8) Platelet Count 83 K/UL (150-450) L Mean Platelet Volume 7.0 FL (6.5-10.1) Neutrophils (%) (Auto) % (45.0-75.0) Lymphocytes (%) (Auto) % (20.0-45.0) Monocytes (%) (Auto) % (1.0-10.0) Eosinophils (%) (Auto) % (0.0-3.0) Basophils (%) (Auto) % (0.0-2.0) Differential Total Cells Counted 100 Neutrophils % (Manual) 89 % (45-75) H Lymphocytes % (Manual) 5 % (20-45) L Monocytes % (Manual) 4 % (1-10) Eosinophils % (Manual) 2 % (0-3) Basophils % (Manual) 0 % (0-2) Band Neutrophils 0 % (0-8) Platelet Estimate Decreased L Platelet Morphology Normal Sodium Level 142 MMOL/L (136-145) Potassium Level 3.1 MMOL/L (3.5-5.1) L Chloride Level 107 MMOL/L (98-107) Carbon Dioxide Level 24 MMOL/L (21-32) Anion Gap 11 mmol/L (5-15) Blood Urea Nitrogen 79 mg/dL (7-18) H Creatinine 5.2 MG/DL (0.55-1.30) H Estimat Glomerular Filtration Rate 11.5 mL/min (>60) Glucose Level 154 MG/DL (74-106) #H Calcium Level 7.7 MG/DL (8.5-10.1) L Total Bilirubin 0.7 MG/DL (0.2-1.0) Aspartate Amino Transf (AST/SGOT) 89 U/L (15-37) H Alanine Aminotransferase (ALT/SGPT) 20 U/L (12-78) Alkaline Phosphatase 103 U/L (46-116) C-Reactive Protein, Quantitative 27.2 mg/dL (0.00-0.90) H Total Protein 5.0 G/DL (6.4-8.2) L Albumin 1.5 G/DL (3.4-5.0) L Globulin 3.5 g/dL Albumin/Globulin Ratio 0.4 (1.0-2.7) L Hepatitis A IgM Antibody Pending Hepatitis B Surface Antigen Pending Hepatitis B Core IgM Antibody Pending Hepatitis C Antibody Pending Test 05/03/18 10:21 Arterial Blood pH 7.350 (7.350-7.450) Arterial Blood Partial Pressure CO2 43.3 mmHg (35.0-45.0) Arterial Blood Partial Pressure O2 < 45.3 mmHg (75.0-100.0) Arterial Blood HCO3 23.4 mmol/L (22.0-26.0) Arterial Blood Oxygen Saturation 71.6 % (95-100) *L Arterial Blood Base Excess -2.2 (-2-2) L Aaron Test Positive Abhi Griffin MD May 03, 2018 12:45
[2018-05-03] MEDS: Piperacillin/Tazobactam 3.375 GM in NS 110 ML IVPB SCH (12:49)
--- NOTE | 2018-05-03 13:05 | Infectious Diseases Prog Note ---
Assessment/Plan Assessment/Plan A 1. aspiration pneumonia 2. Sepsis, Septic shock 3.Hypoxemic respiratory failure 4. seizures 5. Acute renal failure 6. alcohol withdrawal 7. Anoxic encephalopathy, ? brain 8.severe anemia 9. ARDS 10. cardiopulmonary arrest P 1. Continue Zosyn & Acyclovir & Vancomycin Subjective ROS Limited/Unobtainable: Yes Cardiovascular: Reports: other - on vasopressors Allergies: Coded Allergies: No Known Allergies (Unverified , 04/24/18) Objective Vital Signs Last 24 Hour Vital Signs Date Time Temp Pulse Resp B/P (MAP) Pulse Ox O2 Delivery O2 Flow Rate FiO2 05/03/18 12:00 71 30 102/56 (71) 97 05/03/18 12:00 73 05/03/18 12:00 Mechanical Ventilator 05/03/18 12:00 100 05/03/18 11:00 72 30 114/63 (80) 97 05/03/18 11:00 114/63 05/03/18 11:00 114/63 05/03/18 10:51 72 30 70 05/03/18 10:30 72 30 113/66 (82) 93 05/03/18 10:00 112/66 05/03/18 10:00 112/66 05/03/18 10:00 71 30 112/66 (81) 100 05/03/18 09:30 71 30 108/62 (77) 95 05/03/18 09:00 103/63 05/03/18 09:00 103/63 05/03/18 09:00 72 30 103/63 (76) 95 05/03/18 08:54 71 05/03/18 08:50 72 30 70 05/03/18 08:30 73 30 121/54 (76) 95 05/03/18 08:15 72 30 112/64 (80) 97 05/03/18 08:00 70 05/03/18 08:00 71 30 97/54 (68) 98 05/03/18 08:00 71 30 97/54 (68) 98 05/03/18 08:00 97/54 05/03/18 08:00 97/54 05/03/18 08:00 Mechanical Ventilator 05/03/18 07:45 71 30 89/53 (65) 97 05/03/18 07:30 97.8 70 28 86/53 (64) 91 05/03/18 07:30 86/53 05/03/18 07:27 70 30 70 05/03/18 07:00 72 30 98/68 (78) 95 05/03/18 06:45 73 30 117/70 (86) 98 05/03/18 06:30 72 30 110/68 (82) 98 05/03/18 06:22 70 30 86/56 (66) 95 05/03/18 06:20 70 30 89/57 (68) 97 05/03/18 06:15 70 30 89/57 (68) 96 05/03/18 06:00 71 30 97/60 (72) 98 05/03/18 05:45 71 30 95/62 (73) 97 05/03/18 05:30 70 30 96/61 (73) 98 05/03/18 05:15 71 30 98/60 (73) 97 05/03/18 05:12 71 30 70 05/03/18 05:00 72 30 107/65 (79) 95 05/03/18 04:45 73 30 105/65 (78) 92 05/03/18 04:30 73 30 91 05/03/18 04:15 74 30 100/62 (75) 92 05/03/18 04:00 98.1 74 30 93/56 (68) 92 05/03/18 04:00 Mechanical Ventilator 05/03/18 04:00 75 05/03/18 04:00 70 05/03/18 03:45 75 32 102/62 (75) 100 05/03/18 03:30 73 29 97/59 (72) 99 05/03/18 03:15 74 30 102/65 (77) 100 05/03/18 03:00 74 30 96/61 (73) 100 05/03/18 02:49 74 30 70 05/03/18 02:45 74 30 98/65 (76) 100 05/03/18 02:30 74 30 98/62 (74) 100 05/03/18 02:15 74 30 96/61 (73) 100 05/03/18 02:00 76 30 116/71 (86) 100 05/03/18 01:45 76 30 117/71 (86) 100 05/03/18 01:30 76 30 115/69 (84) 100 05/03/18 01:17 75 30 78/52 (61) 100 05/03/18 01:15 75 30 79/52 (61) 100 05/03/18 01:00 98.1 76 30 105/68 (80) 100 05/03/18 00:45 76 30 101/66 (78) 100 05/03/18 00:39 76 30 80 05/03/18 00:30 77 30 97/63 (74) 100 05/03/18 00:15 77 30 98/65 (76) 100 05/03/18 00:00 Mechanical Ventilator 05/03/18 00:00 77 30 101/66 (78) 100 05/03/18 00:00 85 05/03/18 00:00 76 05/02/18 23:45 78 30 124/76 (92) 100 05/02/18 23:30 84 30 158/88 (111) 100 05/02/18 23:15 84 30 157/87 (110) 100 05/02/18 23:00 84 30 155/84 (107) 100 05/02/18 22:45 84 30 153/89 (110) 100 05/02/18 22:37 84 30 85 05/02/18 22:30 84 30 152/87 (108) 100 05/02/18 22:15 84 30 154/87 (109) 100 05/02/18 22:00 84 30 153/86 (108) 100 05/02/18 21:45 85 30 152/89 (110) 100 05/02/18 21:30 84 30 139/82 (101) 98 05/02/18 21:15 84 30 127/80 (96) 100 05/02/18 21:00 84 30 126/77 (93) 100 05/02/18 20:45 87 30 134/80 (98) 100 05/02/18 20:32 89 30 90 05/02/18 20:30 89 29 141/81 (101) 100 05/02/18 20:15 92 30 165/89 (114) 100 05/02/18 20:00 90 30 163/90 (114) 100 05/02/18 20:00 Mechanical Ventilator 05/02/18 20:00 90 05/02/18 20:00 100 05/02/18 19:45 89 30 154/87 (109) 100 05/02/18 19:38 91 30 164/92 (116) 100 05/02/18 19:30 90 30 166/92 (116) 100 05/02/18 19:15 97.9 90 30 164/90 (114) 100 05/02/18 19:08 90 30 90 05/02/18 19:00 89 30 166/94 (118) 100 05/02/18 19:00 166/94 05/02/18 18:57 166/94 05/02/18 18:45 165/88 05/02/18 18:30 167/80 05/02/18 18:16 173/81 05/02/18 18:00 173/81 05/02/18 18:00 173/81 05/02/18 17:25 92 30 100 05/02/18 17:00 147/77 05/02/18 17:00 147/77 05/02/18 16:15 92 30 143/77 (99) 99 05/02/18 16:00 93 30 142/73 (96) 100 05/02/18 16:00 Mechanical Ventilator 05/02/18 16:00 142/73 05/02/18 16:00 142/73 05/02/18 16:00 100 05/02/18 16:00 102 05/02/18 15:45 95 30 138/77 (97) 100 05/02/18 15:30 157/81 05/02/18 15:30 157/81 05/02/18 15:30 104 30 157/81 (106) 100 05/02/18 15:15 104 30 160/80 (106) 100 05/02/18 15:00 105 30 161/81 (107) 100 05/02/18 15:00 98 30 100 05/02/18 15:00 161/81 05/02/18 15:00 161/81 05/02/18 14:45 107 30 158/82 (107) 98 05/02/18 14:30 109 30 158/79 (105) 100 05/02/18 14:30 158/79 05/02/18 14:15 111 30 165/88 (113) 99 05/02/18 14:00 165/68 05/02/18 14:00 165/68 05/02/18 14:00 100 30 144/64 (90) 97 05/02/18 13:45 110 30 168/83 (111) 98 05/02/18 13:36 108 30 99 Mechanical Ventilator 100 05/02/18 13:30 109 30 174/89 (117) 100 05/02/18 13:26 112 30 100 Mechanical Ventilator 15.0 100 05/02/18 13:25 112 30 100 05/02/18 13:15 115 30 149/80 (103) 95 Height (Feet): 5 Height (Inches): 10.00 Weight (Pounds): 170 HEENT: mucous membranes moist Respiratory/Chest: lungs clear, other - on ventilator Cardiovascular: normal rate, other - PICC line Abdomen: soft, non tender Extremities: other - generalized edema Neurologic/Psychiatric: unresponsiveness, other - no reflexes Laboratory Tests Test 05/02/18 18:40 05/03/18 02:00 05/03/18 08:30 05/03/18 10:21 Arterial Blood pH 7.260 (7.350-7.450) 7.350 (7.350-7.450) 7.350 (7.350-7.450) Arterial Blood Partial Pressure CO2 42.2 mmHg (35.0-45.0) 44.4 mmHg (35.0-45.0) 43.3 mmHg (35.0-45.0) Arterial Blood Partial Pressure O2 65.8 mmHg (75.0-100.0) L 37.9 mmHg (75.0-100.0) < 45.3 mmHg (75.0-100.0) Arterial Blood HCO3 18.5 mmol/L (22.0-26.0) L 24.0 mmol/L (22.0-26.0) 23.4 mmol/L (22.0-26.0) Arterial Blood Oxygen Saturation % (95-100) 75.4 % (95-100) *L 71.6 % (95-100) *L Arterial Blood Base Excess -8.2 (-2-2) L -1.6 (-2-2) -2.2 (-2-2) L Aaron Test Positive Positive Positive Stool Occult Blood Positive (NEGATIVE) White Blood Count 10.6 K/UL (4.8-10.8) Red Blood Count 2.57 M/UL (4.70-6.10) L Hemoglobin 8.2 G/DL (14.2-18.0) L Hematocrit 23.6 % (42.0-52.0) L Mean Corpuscular Volume 92 FL (80-99) Mean Corpuscular Hemoglobin 31.8 PG (27.0-31.0) H Mean Corpuscular Hemoglobin Concent 34.6 G/DL (32.0-36.0) Red Cell Distribution Width 13.0 % (11.6-14.8) Platelet Count 83 K/UL (150-450) L Mean Platelet Volume 7.0 FL (6.5-10.1) Neutrophils (%) (Auto) % (45.0-75.0) Lymphocytes (%) (Auto) % (20.0-45.0) Monocytes (%) (Auto) % (1.0-10.0) Eosinophils (%) (Auto) % (0.0-3.0) Basophils (%) (Auto) % (0.0-2.0) Differential Total Cells Counted 100 Neutrophils % (Manual) 89 % (45-75) H Lymphocytes % (Manual) 5 % (20-45) L Monocytes % (Manual) 4 % (1-10) Eosinophils % (Manual) 2 % (0-3) Basophils % (Manual) 0 % (0-2) Band Neutrophils 0 % (0-8) Platelet Estimate Decreased L Platelet Morphology Normal Sodium Level 142 MMOL/L (136-145) Potassium Level 3.1 MMOL/L (3.5-5.1) L Chloride Level 107 MMOL/L (98-107) Carbon Dioxide Level 24 MMOL/L (21-32) Anion Gap 11 mmol/L (5-15) Blood Urea Nitrogen 79 mg/dL (7-18) H Creatinine 5.2 MG/DL (0.55-1.30) H Estimat Glomerular Filtration Rate 11.5 mL/min (>60) Glucose Level 154 MG/DL (74-106) #H Calcium Level 7.7 MG/DL (8.5-10.1) L Total Bilirubin 0.7 MG/DL (0.2-1.0) Aspartate Amino Transf (AST/SGOT) 89 U/L (15-37) H Alanine Aminotransferase (ALT/SGPT) 20 U/L (12-78) Alkaline Phosphatase 103 U/L (46-116) C-Reactive Protein, Quantitative 27.2 mg/dL (0.00-0.90) H Total Protein 5.0 G/DL (6.4-8.2) L Albumin 1.5 G/DL (3.4-5.0) L Globulin 3.5 g/dL Albumin/Globulin Ratio 0.4 (1.0-2.7) L Hepatitis A IgM Antibody Pending Hepatitis B Surface Antigen Pending Hepatitis B Core IgM Antibody Pending Hepatitis C Antibody Pending Current Medications Medications (Trade) Dose Ordered Sig/Bj Route PRN Reason Start Time Stop Time Status Last Admin Dose Admin Acetaminophen (Tylenol) 650 mg Q4H PRN NG Mild Pain/Temp > 100.5 05/01/18 15:30 05/27/18 21:29 05/02/18 02:43 Acetaminophen (Tylenol) 650 mg Q4H PRN RECTAL Mild Pain (Pain Scale 1-3) 04/27/18 21:30 05/27/18 21:29 04/28/18 14:39 Acyclovir 800 mg/ Sodium Chloride 275 ml @ 275 mls/hr Q24HRS IV 05/02/18 10:00 05/29/18 09:59 05/03/18 11:11 Albuterol/ Ipratropium (Albuterol/ Ipratropium) 3 ml Q4H PRN HHN Shortness of Breath 05/03/18 12:45 05/08/18 12:44 Albuterol/ Ipratropium (Albuterol/ Ipratropium) 3 ml Q6HRT HHN 05/03/18 13:00 05/08/18 12:59 Allopurinol (Zyloprim) 200 mg DAILY NG 04/29/18 09:00 05/28/18 08:59 05/03/18 09:28 Chlorhexidine Gluconate (Lidia-Hex 2%) 1 applic DAILY@2000 TOPIC 05/01/18 20:00 05/31/18 19:59 05/02/18 19:53 Clonidine HCl (Catapres Tab) 0.1 mg Q4H PRN NG bp over 160 syst 05/01/18 15:30 05/26/18 21:29 Dextrose (Dextrose 50%) 25 ml Q30M PRN IV Hypoglycemia 04/29/18 07:30 05/29/18 07:29 Dextrose (Dextrose 50%) 50 ml Q30M PRN IV Hypoglycemia 04/29/18 07:30 05/29/18 07:29 Dopamine HCl/ Dextrose 250 ml @ 0 mls/hr Q24H IV 05/02/18 04:45 06/01/18 04:44 05/02/18 18:16 Folic Acid (Folate) 1 mg DAILY NG 05/02/18 09:00 06/01/18 08:59 05/03/18 09:32 Heparin Sodium (Porcine) (Heparin 5000 units/ml) 5,000 units EVERY 12 HOURS SUBQ 04/28/18 09:00 05/27/18 20:59 05/02/18 20:55 Insulin Aspart (NovoLOG) EVERY 4 HOURS SUBQ 04/29/18 09:00 05/29/18 08:59 05/03/18 09:30 Insulin Detemir (Levemir) 15 units BID SUBQ 05/02/18 09:00 05/29/18 08:59 05/03/18 09:29 Iron Sucrose 100 mg/Sodium Chloride 60 ml @ 240 mls/hr BEDTIME IV 04/30/18 21:00 05/04/18 21:14 05/02/18 20:54 Levetiracetam 250 mg/Sodium Chloride 112.5 ml @ 450 mls/hr Q12HR IV 04/27/18 22:00 05/27/18 21:59 05/03/18 09:27 Lorazepam (Ativan 2mg/ml 1ml) 2 mg Q4H PRN IV For Anxiety 04/30/18 09:45 05/07/18 09:44 05/01/18 03:38 Metoclopramide HCl (Reglan) 10 mg Q6H PRN IVP Nausea & Vomiting 04/27/18 21:30 05/27/18 21:29 Midazolam HCl 100 ml @ 2 mls/hr Q24H IVPB 04/28/18 16:15 05/05/18 16:14 04/30/18 19:55 Midodrine (Pro-Amatine) 2.5 mg Q8H PRN NG bp below 100 syst 05/02/18 15:45 06/01/18 15:44 Multivitamins (Multivitamins) 1 tab DAILY ORAL 05/02/18 09:00 06/01/18 08:59 05/03/18 09:28 Norepinephrine Bitartrate 8 mg/ Dextrose 508 ml @ 0 mls/hr Q24H IV 04/29/18 07:45 05/29/18 07:44 05/02/18 18:57 Ondansetron HCl (Zofran) 4 mg Q6H PRN IVP Nausea & Vomiting 04/27/18 21:30 05/27/18 21:29 Pantoprazole (Protonix) 40 mg EVERY 12 HOURS IVP 04/28/18 09:00 05/25/18 20:59 05/03/18 09:27 Phenytoin 300 mg/ Sodium Chloride 116 ml @ 120 mls/hr DAILY IVPB 04/28/18 09:00 05/28/18 08:59 05/03/18 09:28 Piperacillin Sod/ Tazobactam Sod 3.375 gm/Sodium Chloride 110 ml @ 27.5 mls/hr Q12H IVPB 04/29/18 00:00 05/06/18 00:00 05/03/18 12:49 Sodium Bicarbonate 150 ml/Dextrose/ Sodium Chloride 1,150 ml @ 100 mls/hr [id number] IV 05/02/18 15:00 06/01/18 14:59 05/03/18 02:05 Thiamine HCl 100 mg/Sodium Chloride 56 ml @ 112 mls/hr Q24H IVPB 04/29/18 15:00 05/29/18 14:59 05/02/18 17:27 Vasopressin 100 units/Sodium Chloride 100 ml @ 2.4 mls/hr Q24H IV 05/03/18 05:00 06/02/18 04:59 05/03/18 05:18 James Ortiz MD May 03, 2018 13:05
[2018-05-03] MEDS ORDERED: Heparin1,000 units/500ml Premix(Conc:2 units/ml) INJ PRN (13:14)
[2018-05-03] MEDS ORDERED: Lidocaine 1% Plain 30 ml INJ PRN (13:15)
[2018-05-03] MEDS: Albuterol/Ipratropium 3ml neb HHN SCH ×2 (13:22→19:24)
--- NOTE | 2018-05-03 13:55 | NUR ---
NURSE NOTES: Cleaned pt for moderate amount of dark brown soft formed BM. Repositioned pt. Started desaturating to 70-80's%. FiO2 increased to 100%. Will continue to monitor. Radiology team is getting ready for Dialysis line insertion at bedside.
--- NOTE | 2018-05-03 14:56 | NUR ---
NURSE NOTES: X-ray is being done at bedside to confirm placement for a new dialysis line, right IJ Raghavendra catheter.
--- NOTE | 2018-05-03 15:42 | General Progress Note ---
Assessment/Plan Assessment/Plan Assessment and Recs: # Anemia of chronic disease due to underlying chronic medical issues, multifactorial --> in addition due to KELLY, have started iron on 04/30 --> Anemia workup has been reviewed, ferritin 373 --> No evidence of hemolysis is noted, peripheral smear has been reviewed. --> Hgb goal >7. Transfuse prn. --> Given 2 units prbc on 04/25/18, had a reaction, transfusion reaction ordered --> Medications have been reviewed --> gi recs appreciated --> recheck anemia panel 05/07 # Anemia due to alcohol withdrawal/myelosuppresion --> Monitor for withdrawal symptoms --> thimaine, folic acid, ivf, ativan prn ordered # Leukocytosis/Elevated white blood cell count, unspecified likely related to underlying stress reaction, smoking, or underlying infection (especially if bandemia is noted) --> have reviewed peripheral smear and bandemia/neutrophilia noted --> continue antibiotics if they have been started by ID team --> monitor for resolution --> WBC trend: 16-->15-->18-->14-->10 # Thrombocutopenia due to etoh abise --> trend 114k # Alcohol abuse --> rec cessation # Epileptic seizure, generalized --> as per neuro # Intubated in ICU # Drug abuse # transfse to higher level of care The timing of this note does not necessarily reflect the time of the patient was seen. Greatly appreciate consultation! Subjective Cardiovascular: Denies: no symptoms, chest pain, edema, irregular heart rate, lightheadedness, palpitations, syncope, other Respiratory: Denies: no symptoms, cough, orthopnea, shortness of breath, SOB with excertion, SOB at rest, sputum, stridor, wheezing, other Neurologic/Psychiatric: Denies: no symptoms, anxiety, depressed, emotional problems, headache, numbness, paresthesia, pre-existing deficit, seizure, tingling, tremors, weakness, other Endocrine: Denies: no symptoms, excessive sweating, flushing, intolerance to cold, intolerance to heat, increased hunger, increased thirst, increased urine, unexplained weight gain, unexplained weight loss, other Hematologic/Lymphatic: Denies: no symptoms, anemia, easy bleeding, easy bruising, other Allergies: Coded Allergies: No Known Allergies (Unverified , 04/24/18) Subjective 04/26: awake, comfortable, no acute distress. 04/27: Pt was transferred to ICU, intubated, wbc 16 04/29: seen by bedside, comfortable, wbc 15 04/30: started on iv iron, no fev, chills noted 05/01: On vent, comatose, wbc trending down 05/02: seen by bedside, s/p intubated, cbc reviewed. 05/03: with dialysis line placement, will need hd shortly Objective Last 24 Hour Vital Signs Date Time Temp Pulse Resp B/P (MAP) Pulse Ox O2 Delivery O2 Flow Rate FiO2 05/03/18 15:34 71 30 100 05/03/18 15:00 69 30 109/64 (79) 98 05/03/18 15:00 109/54 05/03/18 15:00 109/64 05/03/18 14:30 71 33 91/54 (66) 83 05/03/18 14:00 71 30 101/57 (72) 88 05/03/18 14:00 101/57 05/03/18 14:00 101/57 05/03/18 13:30 77 30 144/79 (100) 100 05/03/18 13:23 72 30 86 Mechanical Ventilator 90 05/03/18 13:20 90 05/03/18 13:01 72 30 80 05/03/18 13:00 105/62 05/03/18 13:00 105/62 05/03/18 13:00 72 30 107/60 (76) 88 05/03/18 12:30 97.7 72 30 106/59 (75) 94 05/03/18 12:30 80 05/03/18 12:00 71 30 102/56 (71) 97 05/03/18 12:00 73 05/03/18 12:00 102/56 05/03/18 12:00 102/56 05/03/18 12:00 Mechanical Ventilator 05/03/18 12:00 100 05/03/18 11:30 72 30 102/59 (73) 98 05/03/18 11:00 72 30 114/63 (80) 97 05/03/18 11:00 114/63 05/03/18 11:00 114/63 05/03/18 10:51 72 30 70 05/03/18 10:30 72 30 113/66 (82) 93 05/03/18 10:00 112/66 05/03/18 10:00 112/66 05/03/18 10:00 71 30 112/66 (81) 100 05/03/18 09:30 71 30 108/62 (77) 95 05/03/18 09:00 103/63 05/03/18 09:00 103/63 05/03/18 09:00 72 30 103/63 (76) 95 05/03/18 08:54 71 05/03/18 08:50 72 30 70 05/03/18 08:30 73 30 121/54 (76) 95 05/03/18 08:15 72 30 112/64 (80) 97 05/03/18 08:00 70 05/03/18 08:00 71 30 97/54 (68) 98 05/03/18 08:00 71 30 97/54 (68) 98 05/03/18 08:00 97/54 05/03/18 08:00 97/54 05/03/18 08:00 Mechanical Ventilator 05/03/18 07:45 71 30 89/53 (65) 97 05/03/18 07:30 97.8 70 28 86/53 (64) 91 05/03/18 07:30 86/53 05/03/18 07:27 70 30 70 05/03/18 07:00 72 30 98/68 (78) 95 05/03/18 06:45 73 30 117/70 (86) 98 05/03/18 06:30 72 30 110/68 (82) 98 05/03/18 06:22 70 30 86/56 (66) 95 05/03/18 06:20 70 30 89/57 (68) 97 05/03/18 06:15 70 30 89/57 (68) 96 05/03/18 06:00 71 30 97/60 (72) 98 05/03/18 05:45 71 30 95/62 (73) 97 05/03/18 05:30 70 30 96/61 (73) 98 05/03/18 05:15 71 30 98/60 (73) 97 05/03/18 05:12 71 30 70 05/03/18 05:00 72 30 107/65 (79) 95 05/03/18 04:45 73 30 105/65 (78) 92 05/03/18 04:30 73 30 91 05/03/18 04:15 74 30 100/62 (75) 92 05/03/18 04:00 98.1 74 30 93/56 (68) 92 05/03/18 04:00 Mechanical Ventilator 05/03/18 04:00 75 05/03/18 04:00 70 05/03/18 03:45 75 32 102/62 (75) 100 05/03/18 03:30 73 29 97/59 (72) 99 05/03/18 03:15 74 30 102/65 (77) 100 05/03/18 03:00 74 30 96/61 (73) 100 05/03/18 02:49 74 30 70 05/03/18 02:45 74 30 98/65 (76) 100 05/03/18 02:30 74 30 98/62 (74) 100 05/03/18 02:15 74 30 96/61 (73) 100 05/03/18 02:00 76 30 116/71 (86) 100 05/03/18 01:45 76 30 117/71 (86) 100 05/03/18 01:30 76 30 115/69 (84) 100 05/03/18 01:17 75 30 78/52 (61) 100 05/03/18 01:15 75 30 79/52 (61) 100 05/03/18 01:00 98.1 76 30 105/68 (80) 100 05/03/18 00:45 76 30 101/66 (78) 100 05/03/18 00:39 76 30 80 05/03/18 00:30 77 30 97/63 (74) 100 05/03/18 00:15 77 30 98/65 (76) 100 05/03/18 00:00 Mechanical Ventilator 05/03/18 00:00 77 30 101/66 (78) 100 05/03/18 00:00 85 05/03/18 00:00 76 05/02/18 23:45 78 30 124/76 (92) 100 05/02/18 23:30 84 30 158/88 (111) 100 05/02/18 23:15 84 30 157/87 (110) 100 05/02/18 23:00 84 30 155/84 (107) 100 05/02/18 22:45 84 30 153/89 (110) 100 05/02/18 22:37 84 30 85 05/02/18 22:30 84 30 152/87 (108) 100 05/02/18 22:15 84 30 154/87 (109) 100 05/02/18 22:00 84 30 153/86 (108) 100 05/02/18 21:45 85 30 152/89 (110) 100 05/02/18 21:30 84 30 139/82 (101) 98 05/02/18 21:15 84 30 127/80 (96) 100 05/02/18 21:00 84 30 126/77 (93) 100 05/02/18 20:45 87 30 134/80 (98) 100 05/02/18 20:32 89 30 90 05/02/18 20:30 89 29 141/81 (101) 100 05/02/18 20:15 92 30 165/89 (114) 100 05/02/18 20:00 90 30 163/90 (114) 100 05/02/18 20:00 Mechanical Ventilator 05/02/18 20:00 90 05/02/18 20:00 100 05/02/18 19:45 89 30 154/87 (109) 100 05/02/18 19:38 91 30 164/92 (116) 100 05/02/18 19:30 90 30 166/92 (116) 100 05/02/18 19:15 97.9 90 30 164/90 (114) 100 05/02/18 19:08 90 30 90 05/02/18 19:00 89 30 166/94 (118) 100 05/02/18 19:00 166/94 05/02/18 18:57 166/94 05/02/18 18:45 165/88 05/02/18 18:30 167/80 05/02/18 18:16 173/81 05/02/18 18:00 173/81 05/02/18 18:00 173/81 05/02/18 17:25 92 30 100 05/02/18 17:00 147/77 05/02/18 17:00 147/77 05/02/18 16:15 92 30 143/77 (99) 99 05/02/18 16:00 93 30 142/73 (96) 100 05/02/18 16:00 Mechanical Ventilator 05/02/18 16:00 142/73 05/02/18 16:00 142/73 05/02/18 16:00 100 05/02/18 16:00 102 05/02/18 15:45 95 30 138/77 (97) 100 Intake and Output 05/02/18 05/03/18 18:59 06:59 Intake Total 2349.957 ml 1331.495 ml Output Total 180 ml 125 ml Balance 2169.957 ml 1206.495 ml Free Water 60 ml IV Total 2289.957 ml 1331.495 ml Tube Feeding 0 ml 0 ml Output Urine Total 180 ml 125 ml # Bowel Movements 2 Laboratory Tests 05/02/18 18:40: Arterial Blood pH 7.260L, Arterial Blood Partial Pressure CO2 42.2, Arterial Blood Partial Pressure O2 65.8L, Arterial Blood HCO3 18.5L, Arterial Blood Oxygen Saturation , Arterial Blood Base Excess -8.2L, Aaron Test Positive 05/03/18 02:00: Stool Occult Blood Positive 05/03/18 08:30: Arterial Blood pH 7.350, Arterial Blood Partial Pressure CO2 44.4, Arterial Blood Partial Pressure O2 37.9*L, Arterial Blood HCO3 24.0, Arterial Blood Oxygen Saturation 75.4*L, Arterial Blood Base Excess -1.6, Aaron Test Positive, White Blood Count 10.6, Red Blood Count 2.57L, Hemoglobin 8.2L, Hematocrit 23.6L , Mean Corpuscular Volume 92, Mean Corpuscular Hemoglobin 31.8H, Mean Corpuscular Hemoglobin Concent 34.6, Red Cell Distribution Width 13.0, Platelet Count 83L, Mean Platelet Volume 7.0, Neutrophils (%) (Auto) , Lymphocytes (%) ( Auto) , Monocytes (%) (Auto) , Eosinophils (%) (Auto) , Basophils (%) (Auto) , Differential Total Cells Counted 100, Neutrophils % (Manual) 89H, Lymphocytes % (Manual) 5L, Monocytes % (Manual) 4, Eosinophils % (Manual) 2, Basophils % ( Manual) 0, Band Neutrophils 0, Platelet Estimate DecreasedL, Platelet Morphology Normal, Sodium Level 142, Potassium Level 3.1L, Chloride Level 107, Carbon Dioxide Level 24, Anion Gap 11, Blood Urea Nitrogen 79H, Creatinine 5.2H , Estimat Glomerular Filtration Rate 11.5, Glucose Level 154#H, Calcium Level 7.7L, Total Bilirubin 0.7, Aspartate Amino Transf (AST/SGOT) 89H, Alanine Aminotransferase (ALT/SGPT) 20, Alkaline Phosphatase 103, C-Reactive Protein, Quantitative 27.2H, Total Protein 5.0L, Albumin 1.5L, Globulin 3.5, Albumin/ Globulin Ratio 0.4L, Hepatitis A IgM Antibody [Pending], Hepatitis B Surface Antigen [Pending], Hepatitis B Core IgM Antibody [Pending], Hepatitis C Antibody [Pending] 05/03/18 10:21: Arterial Blood pH 7.350, Arterial Blood Partial Pressure CO2 43.3, Arterial Blood Partial Pressure O2 < 45.3*L, Arterial Blood HCO3 23.4, Arterial Blood Oxygen Saturation 71.6*L, Arterial Blood Base Excess -2.2L, Aaron Test Positive Height (Feet): 5 Height (Inches): 10.00 Weight (Pounds): 170 Objective PE: General Appearance: obtunded, in icu Head: normocephalic EENT: PERRL/EOMI, normal ENT inspection Neck: supple Respiratory: normal breath sounds, no respiratory distress, intubated++ Cardiovascular: normal rate Gastrointestinal: normal inspection, non tender, soft, normal bowel sounds, non -distended Rectal: deferred Genitourinary: deferred Musculoskeletal: normal inspection, back normal Mirza Greenfield MD May 03, 2018 15:42
--- NOTE | 2018-05-03 15:47 | Diagnostic Imaging Report ---
Indication: Patient requires hemodialysis. Findings: After the indications, procedure, risks, complications, and alternatives of the procedure were explained, written informed consent was obtained. The neck was prepped with alcohol. All elements of maximal sterile barrier technique were followed including usage of a cap, mask, sterile gown, sterile gloves, hand hygiene and a large sterile sheet. 1% lidocaine was used to anesthetize the skin. Sonographic evaluation was performed demonstrating a patent and compressible right shoulder vein. Access was obtained under real-time ultrasound guidance using an 18 gauge needle and a digital image was saved in archive. An 0.035 wire was then advanced into the vein. Needle exchanged for a dilator. A temporary hemodialysis catheter was then advanced over the wire. Wire was removed. Catheter was secured to the skin using 2-0 Prolene suture. Both ports aspirate and flush easily. The procedure was performed at the bedside. Post procedure chest x-ray shows the catheter tip within the SVC in good position. The catheter is cleared for use. Impression: Successful placement of right jugular hemodialysis catheter.
--- NOTE | 2018-05-03 15:47 | NUR ---
NURSE NOTES: Dr Moore called and stated Right IJ Raghavendra is okay to use. Called [facility] for urgent dialysis order. Awaiting dialysis nurse to arrive.
--- NOTE | 2018-05-03 16:03 | Cardiac Electrophysiology PN ---
Assessment/Plan Assessment/Plan 1. Spetic Shock, likely combination of sepsis as well as hemorrhagic shock 6.2. Stool OB positive S/P two units of blood transfusion. On Levophed, Cameron and Dopamine as well as broad spectrum IV antibiotic. Since HR is 60s, Will taper off LEvo and Vasopressin and max out on Dopamine EF 60% to 65%. 2. Troponin elevation, likely due to septic shock and demand ischemia. 3. Respiratory failure, on the ventilator, under management of Dr. Griffin, still on 100% FiO2. 4. Severe anemia, s/p blood transfusion. Stool OB positive 5. Acute renal failure, will be getting first HD today. 6. Aspiration pneumonia. 7. History of non insulin-dependent diabetes. Further evaluation by Dr. Ocampo. 8. Full code 9. Alcohol abuse DW RN and daughters Subjective Subjective On the Vent on 3 pressors with 3 daughters at the bedside. Has Right IJ in place and supposed to get HD Objective Last 24 Hour Vital Signs Date Time Temp Pulse Resp B/P (MAP) Pulse Ox O2 Delivery O2 Flow Rate FiO2 05/03/18 15:34 71 30 100 05/03/18 15:00 69 30 109/64 (79) 98 05/03/18 15:00 109/54 05/03/18 15:00 109/64 05/03/18 14:30 71 33 91/54 (66) 83 05/03/18 14:00 71 30 101/57 (72) 88 05/03/18 14:00 101/57 05/03/18 14:00 101/57 05/03/18 13:30 77 30 144/79 (100) 100 05/03/18 13:23 72 30 86 Mechanical Ventilator 90 05/03/18 13:20 90 05/03/18 13:01 72 30 80 05/03/18 13:00 105/62 05/03/18 13:00 105/62 05/03/18 13:00 72 30 107/60 (76) 88 05/03/18 12:30 97.7 72 30 106/59 (75) 94 05/03/18 12:30 80 05/03/18 12:00 71 30 102/56 (71) 97 05/03/18 12:00 73 05/03/18 12:00 102/56 05/03/18 12:00 102/56 05/03/18 12:00 Mechanical Ventilator 05/03/18 12:00 100 05/03/18 11:30 72 30 102/59 (73) 98 05/03/18 11:00 72 30 114/63 (80) 97 05/03/18 11:00 114/63 05/03/18 11:00 114/63 05/03/18 10:51 72 30 70 05/03/18 10:30 72 30 113/66 (82) 93 05/03/18 10:00 112/66 05/03/18 10:00 112/66 05/03/18 10:00 71 30 112/66 (81) 100 05/03/18 09:30 71 30 108/62 (77) 95 05/03/18 09:00 103/63 05/03/18 09:00 103/63 05/03/18 09:00 72 30 103/63 (76) 95 05/03/18 08:54 71 05/03/18 08:50 72 30 70 05/03/18 08:30 73 30 121/54 (76) 95 05/03/18 08:15 72 30 112/64 (80) 97 05/03/18 08:00 70 05/03/18 08:00 71 30 97/54 (68) 98 05/03/18 08:00 71 30 97/54 (68) 98 05/03/18 08:00 97/54 05/03/18 08:00 97/54 05/03/18 08:00 Mechanical Ventilator 05/03/18 07:45 71 30 89/53 (65) 97 05/03/18 07:30 97.8 70 28 86/53 (64) 91 05/03/18 07:30 86/53 05/03/18 07:27 70 30 70 05/03/18 07:00 72 30 98/68 (78) 95 05/03/18 06:45 73 30 117/70 (86) 98 05/03/18 06:30 72 30 110/68 (82) 98 05/03/18 06:22 70 30 86/56 (66) 95 05/03/18 06:20 70 30 89/57 (68) 97 05/03/18 06:15 70 30 89/57 (68) 96 05/03/18 06:00 71 30 97/60 (72) 98 05/03/18 05:45 71 30 95/62 (73) 97 05/03/18 05:30 70 30 96/61 (73) 98 05/03/18 05:15 71 30 98/60 (73) 97 05/03/18 05:12 71 30 70 05/03/18 05:00 72 30 107/65 (79) 95 05/03/18 04:45 73 30 105/65 (78) 92 05/03/18 04:30 73 30 91 05/03/18 04:15 74 30 100/62 (75) 92 05/03/18 04:00 98.1 74 30 93/56 (68) 92 05/03/18 04:00 Mechanical Ventilator 05/03/18 04:00 75 05/03/18 04:00 70 05/03/18 03:45 75 32 102/62 (75) 100 05/03/18 03:30 73 29 97/59 (72) 99 05/03/18 03:15 74 30 102/65 (77) 100 05/03/18 03:00 74 30 96/61 (73) 100 05/03/18 02:49 74 30 70 05/03/18 02:45 74 30 98/65 (76) 100 05/03/18 02:30 74 30 98/62 (74) 100 05/03/18 02:15 74 30 96/61 (73) 100 05/03/18 02:00 76 30 116/71 (86) 100 05/03/18 01:45 76 30 117/71 (86) 100 05/03/18 01:30 76 30 115/69 (84) 100 05/03/18 01:17 75 30 78/52 (61) 100 05/03/18 01:15 75 30 79/52 (61) 100 05/03/18 01:00 98.1 76 30 105/68 (80) 100 05/03/18 00:45 76 30 101/66 (78) 100 05/03/18 00:39 76 30 80 05/03/18 00:30 77 30 97/63 (74) 100 05/03/18 00:15 77 30 98/65 (76) 100 05/03/18 00:00 Mechanical Ventilator 05/03/18 00:00 77 30 101/66 (78) 100 05/03/18 00:00 85 05/03/18 00:00 76 05/02/18 23:45 78 30 124/76 (92) 100 05/02/18 23:30 84 30 158/88 (111) 100 05/02/18 23:15 84 30 157/87 (110) 100 05/02/18 23:00 84 30 155/84 (107) 100 05/02/18 22:45 84 30 153/89 (110) 100 05/02/18 22:37 84 30 85 05/02/18 22:30 84 30 152/87 (108) 100 05/02/18 22:15 84 30 154/87 (109) 100 05/02/18 22:00 84 30 153/86 (108) 100 05/02/18 21:45 85 30 152/89 (110) 100 05/02/18 21:30 84 30 139/82 (101) 98 05/02/18 21:15 84 30 127/80 (96) 100 05/02/18 21:00 84 30 126/77 (93) 100 05/02/18 20:45 87 30 134/80 (98) 100 05/02/18 20:32 89 30 90 05/02/18 20:30 89 29 141/81 (101) 100 05/02/18 20:15 92 30 165/89 (114) 100 05/02/18 20:00 90 30 163/90 (114) 100 05/02/18 20:00 Mechanical Ventilator 05/02/18 20:00 90 05/02/18 20:00 100 05/02/18 19:45 89 30 154/87 (109) 100 05/02/18 19:38 91 30 164/92 (116) 100 05/02/18 19:30 90 30 166/92 (116) 100 05/02/18 19:15 97.9 90 30 164/90 (114) 100 05/02/18 19:08 90 30 90 05/02/18 19:00 89 30 166/94 (118) 100 05/02/18 19:00 166/94 05/02/18 18:57 166/94 19 18:45 165/88 05/02/18 18:30 167/80 05/02/18 18:16 173/81 05/02/18 18:00 173/81 3/20/19 18:00 173/81 05/02/18 17:25 92 30 100 05/02/18 17:00 147/77 05/02/18 17:00 147/77 05/02/18 16:15 92 30 143/77 (99) 99 05/02/18 16:00 93 30 142/73 (96) 100 05/02/18 16:00 Mechanical Ventilator 05/02/18 16:00 142/73 05/02/18 16:00 142/73 05/02/18 16:00 100 05/02/18 16:00 102 Intake and Output 05/02/18 05/03/18 18:59 06:59 Intake Total 2349.957 ml 1331.495 ml Output Total 180 ml 125 ml Balance 2169.957 ml 1206.495 ml Free Water 60 ml IV Total 2289.957 ml 1331.495 ml Tube Feeding 0 ml 0 ml Output Urine Total 180 ml 125 ml # Bowel Movements 2 Laboratory Tests Test 05/02/18 18:40 05/03/18 02:00 05/03/18 08:30 05/03/18 10:21 Arterial Blood pH 7.260 (7.350-7.450) 7.350 (7.350-7.450) 7.350 (7.350-7.450) Arterial Blood Partial Pressure CO2 42.2 mmHg (35.0-45.0) 44.4 mmHg (35.0-45.0) 43.3 mmHg (35.0-45.0) Arterial Blood Partial Pressure O2 65.8 mmHg (75.0-100.0) L 37.9 mmHg (75.0-100.0) < 45.3 mmHg (75.0-100.0) Arterial Blood HCO3 18.5 mmol/L (22.0-26.0) L 24.0 mmol/L (22.0-26.0) 23.4 mmol/L (22.0-26.0) Arterial Blood Oxygen Saturation % (95-100) 75.4 % (95-100) *L 71.6 % (95-100) *L Arterial Blood Base Excess -8.2 (-2-2) L -1.6 (-2-2) -2.2 (-2-2) L Aaron Test Positive Positive Positive Stool Occult Blood Positive (NEGATIVE) White Blood Count 10.6 K/UL (4.8-10.8) Red Blood Count 2.57 M/UL (4.70-6.10) L Hemoglobin 8.2 G/DL (14.2-18.0) L Hematocrit 23.6 % (42.0-52.0) L Mean Corpuscular Volume 92 FL (80-99) Mean Corpuscular Hemoglobin 31.8 PG (27.0-31.0) H Mean Corpuscular Hemoglobin Concent 34.6 G/DL (32.0-36.0) Red Cell Distribution Width 13.0 % (11.6-14.8) Platelet Count 83 K/UL (150-450) L Mean Platelet Volume 7.0 FL (6.5-10.1) Neutrophils (%) (Auto) % (45.0-75.0) Lymphocytes (%) (Auto) % (20.0-45.0) Monocytes (%) (Auto) % (1.0-10.0) Eosinophils (%) (Auto) % (0.0-3.0) Basophils (%) (Auto) % (0.0-2.0) Differential Total Cells Counted 100 Neutrophils % (Manual) 89 % (45-75) H Lymphocytes % (Manual) 5 % (20-45) L Monocytes % (Manual) 4 % (1-10) Eosinophils % (Manual) 2 % (0-3) Basophils % (Manual) 0 % (0-2) Band Neutrophils 0 % (0-8) Platelet Estimate Decreased L Platelet Morphology Normal Sodium Level 142 MMOL/L (136-145) Potassium Level 3.1 MMOL/L (3.5-5.1) L Chloride Level 107 MMOL/L (98-107) Carbon Dioxide Level 24 MMOL/L (21-32) Anion Gap 11 mmol/L (5-15) Blood Urea Nitrogen 79 mg/dL (7-18) H Creatinine 5.2 MG/DL (0.55-1.30) H Estimat Glomerular Filtration Rate 11.5 mL/min (>60) Glucose Level 154 MG/DL (74-106) #H Calcium Level 7.7 MG/DL (8.5-10.1) L Total Bilirubin 0.7 MG/DL (0.2-1.0) Aspartate Amino Transf (AST/SGOT) 89 U/L (15-37) H Alanine Aminotransferase (ALT/SGPT) 20 U/L (12-78) Alkaline Phosphatase 103 U/L (46-116) C-Reactive Protein, Quantitative 27.2 mg/dL (0.00-0.90) H Total Protein 5.0 G/DL (6.4-8.2) L Albumin 1.5 G/DL (3.4-5.0) L Globulin 3.5 g/dL Albumin/Globulin Ratio 0.4 (1.0-2.7) L Hepatitis A IgM Antibody Pending Hepatitis B Surface Antigen Pending Hepatitis B Core IgM Antibody Pending Hepatitis C Antibody Pending Objective HEAD AND NECK: orally intubated. LUNGS: Coarse rhonchi bilaterally. CARDIOVASCULAR: Regular S1 and S2 with no gallop or murmur. ABDOMEN: Soft. EXTREMITIES: 1+ pitting edema. Earl Moreno MD May 03, 2018 16:03
[2018-05-03] MEDS: Midazolam/D5W 100ml 100 ML IVPB SCH (16:15)
[2018-05-03] MEDS: Thiamine HCl 100 MG in NS 55 ML IVPB SCH (16:23)
--- NOTE | 2018-05-03 18:00 | NUR ---
NURSE NOTES: Dr Moreno here to see the patient. Updated him with pt's current condition. Turned off Vasopressin and will try to titrate down Levophed and Dopamine as per order. Will closely monitor BP during dialysis.
--- NOTE | 2018-05-03 18:14 | NUR ---
NURSE NOTES: Hemodialysis is being done at bedside. Titrating pressors as PRN. Pt is on Levophed at 6mcg/min and Dopamine at 4 mcg/kg/min. O2 sat 100% on FiO2 100%. Will continue to monitor.
--- NOTE | 2018-05-03 19:00 | Progress Note ---
DATE: 05/03/2018 NOTE: "POOR AUDIO QUALITY" SUBJECTIVE: The patient is still in coma, without change. PHYSICAL EXAMINATION: VITAL SIGNS: The blood pressure is 112/74, pulse is 72, respiratory rate is 30, temperature is 98.1 degrees this morning. NEUROLOGIC: Mental status, the patient is comatose and no reaction to deep pain or voice. CRANIAL NERVES III, IV, AND : The eyes are in the midline. There is no doll eyes. Pupils are about 6 to 6.5 mm, round. No light reaction. CRANIAL NERVE V: Corneals are absent bilaterally. CRANIAL NERVE VII: There is no grimace to nasal stimulation or to deep pain. CRANIAL NERVES VIII THROUGH XII: Absent. No gag. The patient is not overriding the respirator. MUSCLE EXAMINATION: The patient has flaccid quadriplegia. Reflexes are zero in the upper and lower extremities with downgoing toes on testing for Babinski response. SENSORY EXAMINATION: There is no reaction to deep pain in the extremities or on his chest. IMPRESSION: The patient is primarily at the spinal cord level and in fact maybe brain-. An apnea test could not be done given his pulmonary function. The patient has been off of Versed for several days. I will get a Versed level before getting an E.E.G., although probably should wait at least another day. PLAN: 1. Obtain Versed level if available stat. 2. E.E.G. today or tomorrow. James Caicedo MD DR: Manisha JOB#: [id number] CC: BREE
--- NOTE | 2018-05-03 19:25 | NUR ---
HAND-OFF: Report given to SHARLA Ahmadi.
--- NOTE | 2018-05-03 19:27 | NUR ---
RESPIRATORY NOTE: Received pt on AC 30, 550VT, 100%, PEEP +10. Pt intubated w/ ETT 7.5 @ 26cm lipline. Pt obtunded/flat effect. B/S lelo. rhonchi, sxn minimal amounts of thick/thin, pale-yellow secretions. Vent plugged into red outlet, ambubag at bedside. Pt in no apparent distress at this time. Will continue to monitor pt.
--- NOTE | 2018-05-03 19:28 | NUR ---
NURSE NOTES: Received endorsement from Sofia owusu RN. No eye opening, no pupil reaction to light. Extremities flaccid. Orally intubated 7.5/ 26 cm. AC 30, Vt 550, PEEP 10, fio2 100%. Right IJ zina. TRACIE PICC line running Dopamine 4 mcg/min, Levophed 4mcg/min. D5 1/2NS + NaHCO3 at 100ml/hr. Right Nare NGT patent and intact. Placement rechecked per auscultation. Ongoing Nepro at 10ml/hr. No residual. Meade cath in place. Head of bed at 30 degrees. Bed locked and in lowest position. On seizure precautions.
[2018-05-03] MEDS: Iron Sucrose 100 MG in NS 55 ML IV SCH (20:27)
[2018-05-03] MEDS: Dyna-Hex 2% Top Sol 2oz TOPIC SCH (20:27)
--- NOTE | 2018-05-03 21:16 | General Progress Note ---
Assessment/Plan Problem List: (1) Anemia ICD Codes: D64.9 - Anemia, unspecified SNOMED: 378942061 (2) Alcohol abuse ICD Codes: F10.10 - Alcohol abuse, uncomplicated SNOMED: 99092846 (3) Epileptic seizure, generalized ICD Codes: G40.309 - Generalized idiopathic epilepsy and epileptic syndromes, not intractable, without status epilepticus SNOMED: 99995536 Status: deteriorating Assessment/Plan according to neurologist severe anoxic encephalopathy post cardiopulmonary arrest intubated resp failure ARDS due to aspiration pna seizure Subjective ROS Limited/Unobtainable: Yes Allergies: Coded Allergies: No Known Allergies (Unverified , 04/24/18) Objective Last 24 Hour Vital Signs Date Time Temp Pulse Resp B/P (MAP) Pulse Ox O2 Delivery O2 Flow Rate FiO2 05/03/18 20:00 100 05/03/18 20:00 Mechanical Ventilator 05/03/18 20:00 93 30 137/69 (91) 100 05/03/18 19:45 96 30 171/76 (107) 100 05/03/18 19:35 95 30 100 Mechanical Ventilator 100 05/03/18 19:30 97.5 90 30 142/83 (102) 100 05/03/18 19:24 88 30 100 Mechanical Ventilator 100 05/03/18 19:23 88 30 100 05/03/18 19:00 89 32 128/73 (91) 100 05/03/18 19:00 128/73 05/03/18 19:00 128/73 05/03/18 18:00 86 30 99/58 (72) 100 05/03/18 18:00 99/58 05/03/18 18:00 99/58 05/03/18 18:00 86 30 99/58 (72) 100 05/03/18 17:32 76 30 100 05/03/18 17:30 76 24 86/49 (61) 97 05/03/18 17:15 74 30 92/54 (67) 99 05/03/18 17:00 72 30 94/55 (68) 99 05/03/18 17:00 94/55 05/03/18 17:00 94/55 05/03/18 16:45 97.7 68 30 124/65 (84) 98 05/03/18 16:30 69 30 120/68 (85) 98 05/03/18 16:00 69 30 115/66 (82) 99 05/03/18 16:00 69 05/03/18 16:00 Mechanical Ventilator 05/03/18 16:00 115/66 05/03/18 16:00 115/66 05/03/18 15:34 71 30 100 05/03/18 15:30 70 30 120/69 (86) 100 05/03/18 15:00 69 30 109/64 (79) 98 05/03/18 15:00 109/54 05/03/18 15:00 109/64 05/03/18 14:30 71 33 91/54 (66) 83 05/03/18 14:00 71 30 101/57 (72) 88 05/03/18 14:00 101/57 05/03/18 14:00 101/57 05/03/18 13:30 77 30 144/79 (100) 100 05/03/18 13:23 72 30 86 Mechanical Ventilator 90 05/03/18 13:20 90 05/03/18 13:01 72 30 80 05/03/18 13:00 105/62 05/03/18 13:00 105/62 05/03/18 13:00 72 30 107/60 (76) 88 05/03/18 12:30 97.7 72 30 106/59 (75) 94 05/03/18 12:30 80 05/03/18 12:00 71 30 102/56 (71) 97 05/03/18 12:00 73 05/03/18 12:00 102/56 05/03/18 12:00 102/56 05/03/18 12:00 Mechanical Ventilator 05/03/18 12:00 100 05/03/18 11:30 72 30 102/59 (73) 98 05/03/18 11:00 72 30 114/63 (80) 97 05/03/18 11:00 114/63 05/03/18 11:00 114/63 05/03/18 10:51 72 30 70 05/03/18 10:30 72 30 113/66 (82) 93 05/03/18 10:00 112/66 05/03/18 10:00 112/66 05/03/18 10:00 71 30 112/66 (81) 100 05/03/18 09:30 71 30 108/62 (77) 95 05/03/18 09:00 103/63 05/03/18 09:00 103/63 05/03/18 09:00 72 30 103/63 (76) 95 05/03/18 08:54 71 05/03/18 08:50 72 30 70 05/03/18 08:30 73 30 121/54 (76) 95 05/03/18 08:15 72 30 112/64 (80) 97 05/03/18 08:00 70 05/03/18 08:00 71 30 97/54 (68) 98 05/03/18 08:00 71 30 97/54 (68) 98 05/03/18 08:00 97/54 05/03/18 08:00 97/54 05/03/18 08:00 Mechanical Ventilator 05/03/18 07:45 71 30 89/53 (65) 97 05/03/18 07:30 97.8 70 28 86/53 (64) 91 05/03/18 07:30 86/53 05/03/18 07:27 70 30 70 05/03/18 07:00 72 30 98/68 (78) 95 05/03/18 06:45 73 30 117/70 (86) 98 05/03/18 06:30 72 30 110/68 (82) 98 05/03/18 06:22 70 30 86/56 (66) 95 05/03/18 06:20 70 30 89/57 (68) 97 05/03/18 06:15 70 30 89/57 (68) 96 05/03/18 06:00 71 30 97/60 (72) 98 05/03/18 05:45 71 30 95/62 (73) 97 05/03/18 05:30 70 30 96/61 (73) 98 05/03/18 05:15 71 30 98/60 (73) 97 05/03/18 05:12 71 30 70 05/03/18 05:00 72 30 107/65 (79) 95 05/03/18 04:45 73 30 105/65 (78) 92 05/03/18 04:30 73 30 91 05/03/18 04:15 74 30 100/62 (75) 92 05/03/18 04:00 98.1 74 30 93/56 (68) 92 05/03/18 04:00 Mechanical Ventilator 05/03/18 04:00 75 05/03/18 04:00 70 05/03/18 03:45 75 32 102/62 (75) 100 05/03/18 03:30 73 29 97/59 (72) 99 05/03/18 03:15 74 30 102/65 (77) 100 05/03/18 03:00 74 30 96/61 (73) 100 05/03/18 02:49 74 30 70 05/03/18 02:45 74 30 98/65 (76) 100 05/03/18 02:30 74 30 98/62 (74) 100 05/03/18 02:15 74 30 96/61 (73) 100 05/03/18 02:00 76 30 116/71 (86) 100 05/03/18 01:45 76 30 117/71 (86) 100 05/03/18 01:30 76 30 115/69 (84) 100 05/03/18 01:17 75 30 78/52 (61) 100 05/03/18 01:15 75 30 79/52 (61) 100 05/03/18 01:00 98.1 76 30 105/68 (80) 100 05/03/18 00:45 76 30 101/66 (78) 100 05/03/18 00:39 76 30 80 05/03/18 00:30 77 30 97/63 (74) 100 05/03/18 00:15 77 30 98/65 (76) 100 05/03/18 00:00 Mechanical Ventilator 05/03/18 00:00 77 30 101/66 (78) 100 05/03/18 00:00 85 05/03/18 00:00 76 05/02/18 23:45 78 30 124/76 (92) 100 05/02/18 23:30 84 30 158/88 (111) 100 05/02/18 23:15 84 30 157/87 (110) 100 05/02/18 23:00 84 30 155/84 (107) 100 05/02/18 22:45 84 30 153/89 (110) 100 05/02/18 22:37 84 30 85 05/02/18 22:30 84 30 152/87 (108) 100 05/02/18 22:15 84 30 154/87 (109) 100 05/02/18 22:00 84 30 153/86 (108) 100 05/02/18 21:45 85 30 152/89 (110) 100 05/02/18 21:30 84 30 139/82 (101) 98 Intake and Output 05/02/18 05/03/18 19:00 07:00 Intake Total 2140.877 ml 1432.147 ml Output Total 185 ml 125 ml Balance 1955.877 ml 1307.147 ml Free Water 60 ml IV Total 2080.877 ml 1432.147 ml Tube Feeding 0 ml 0 ml Output Urine Total 185 ml 125 ml # Bowel Movements 2 Laboratory Tests 05/03/18 02:00: Stool Occult Blood Positive 05/03/18 08:30: White Blood Count 10.6, Red Blood Count 2.57L, Hemoglobin 8.2L, Hematocrit 23.6L , Mean Corpuscular Volume 92, Mean Corpuscular Hemoglobin 31.8H, Mean Corpuscular Hemoglobin Concent 34.6, Red Cell Distribution Width 13.0, Platelet Count 83L, Mean Platelet Volume 7.0, Neutrophils (%) (Auto) , Lymphocytes (%) ( Auto) , Monocytes (%) (Auto) , Eosinophils (%) (Auto) , Basophils (%) (Auto) , Differential Total Cells Counted 100, Neutrophils % (Manual) 89H, Lymphocytes % (Manual) 5L, Monocytes % (Manual) 4, Eosinophils % (Manual) 2, Basophils % ( Manual) 0, Band Neutrophils 0, Platelet Estimate DecreasedL, Platelet Morphology Normal, Arterial Blood pH 7.350, Arterial Blood Partial Pressure CO2 44.4, Arterial Blood Partial Pressure O2 37.9*L, Arterial Blood HCO3 24.0, Arterial Blood Oxygen Saturation 75.4*L, Arterial Blood Base Excess -1.6, Aaron Test Positive, Sodium Level 142, Potassium Level 3.1L, Chloride Level 107, Carbon Dioxide Level 24, Anion Gap 11, Blood Urea Nitrogen 79H, Creatinine 5.2H , Estimat Glomerular Filtration Rate 11.5, Glucose Level 154#H, Calcium Level 7.7L, Total Bilirubin 0.7, Aspartate Amino Transf (AST/SGOT) 89H, Alanine Aminotransferase (ALT/SGPT) 20, Alkaline Phosphatase 103, C-Reactive Protein, Quantitative 27.2H, Total Protein 5.0L, Albumin 1.5L, Globulin 3.5, Albumin/ Globulin Ratio 0.4L, Hepatitis A IgM Antibody [Pending], Hepatitis B Surface Antigen [Pending], Hepatitis B Core IgM Antibody [Pending], Hepatitis C Antibody [Pending] 05/03/18 10:21: Arterial Blood pH 7.350, Arterial Blood Partial Pressure CO2 43.3, Arterial Blood Partial Pressure O2 < 45.3*L, Arterial Blood HCO3 23.4, Arterial Blood Oxygen Saturation 71.6*L, Arterial Blood Base Excess -2.2L, Aaron Test Positive 05/03/18 11:00: Opiates Screen [Pending], Oxycodone Level [Pending], Blood Methadone Screen [ Pending], Blood Propoxyphene Screen [Pending], Blood Barbiturates Screen [ Pending], Phencyclidine (PCP) Screen [Pending], Amphetamines Screen [Pending], Benzodiazepines Screen [Pending], Blood Cocaine/Metabolite Screen [Pending], Marijuana (THC) Screen [Pending], Blood Drug Screen Comment [Pending] Height (Feet): 5 Height (Inches): 10.00 Weight (Pounds): 170 General Appearance: lethargic, confused Farhan Joaquin MD May 03, 2018 21:16
[2018-05-04] VITALS (59 sets, daily range): BP systolic 71–153; BP diastolic 35–81
[2018-05-04] MEDS: NovoLOG Insulin Flexpen SUBQ SCH ×6 (01:00→21:25)
[2018-05-04] MEDS: Albuterol/Ipratropium 3ml neb HHN SCH ×4 (01:10→19:00)
[2018-05-04] MEDS: D5 IV SCH (01:30)
[2018-05-04] MEDS: SODIUM BICARBONATE IV SCH (01:30)
[2018-05-04] MEDS: [UNRECOGNIZED DRUG - OTHER] IV SCH (01:30)
--- NOTE | 2018-05-04 04:00 | NUR ---
[facility] Downtime: On 05/03/18 From 05/03/18 2200H to 05/04/18 0400, The following electronic documentation will be located in the patient handwritten chart, Nursing Documentation Medication Administration Records
[2018-05-04] MEDS: Vasopressin 100 UNITS in NS 95 ML IV SCH (05:00)
--- NOTE | 2018-05-04 05:00 | NUR ---
NURSE NOTES: Blood sugar checked and insulin given per sliding scale
[2018-05-04 05:02] LABS: HEMATOCRIT 25.9 % (42.0-52.0); HEMOGLOBIN 8.8 G/DL (14.2-18.0); MEAN CORPUSCULAR VOLUME 92 FL (80-99); PLATELET COUNT 85 K/UL (150-450); RED CELL DISTRIBUTION WIDTH 13.8 % (11.6-14.8); WHITE BLOOD COUNT 14.4 K/UL (4.8-10.8)
[2018-05-04 05:33] LABS: AMMONIA 47 umol/L (11-32)
[2018-05-04] MEDS: DOPamine 400mg/250ml 250 ML IV SCH ×3 (05:33→23:10)
[2018-05-04 05:42] LABS: ALANINE AMINOTRANSFERASE 21 U/L (12-78); ALBUMIN 1.3 G/DL (3.4-5.0); ALBUMIN/GLOBULIN RATIO 0.4 (1.0-2.7); ALKALINE PHOSPHATASE 123 U/L (46-116); ANION GAP 8 mmol/L (5-15); ASPARTATE AMINO TRANSFERASE 95 U/L (15-37); BILIRUBIN,TOTAL 0.5 MG/DL (0.2-1.0); BLOOD UREA NITROGEN 58 mg/dL (7-18); CALCIUM 7.7 MG/DL (8.5-10.1); CARBON DIOXIDE 30 MMOL/L (21-32); CHLORIDE 106 MMOL/L (98-107); CREATININE 4.4 MG/DL (0.55-1.30); GAMMA GLUTAMYL TRANSPEPTIDASE 143 U/L (5-85); PHOSPHORUS 2.4 MG/DL (2.5-4.9); SODIUM 144 MMOL/L (136-145)
--- NOTE | 2018-05-04 06:33 | General Progress Note ---
Assessment/Plan Problem List: (1) Acute respiratory failure ICD Codes: J96.00 - Acute respiratory failure, unspecified whether with hypoxia or hypercapnia SNOMED: 83019478 (2) Diabetes ICD Codes: E11.9 - Type 2 diabetes mellitus without complications SNOMED: 03611546 (3) Diabetic nephropathy ICD Codes: E11.21 - Type 2 diabetes mellitus with diabetic nephropathy SNOMED: 257671279 (4) Renal failure (ARF), acute on chronic ICD Codes: N17.9 - Acute kidney failure, unspecified; N18.9 - Chronic kidney disease, unspecified SNOMED: 128230873 (5) Alcohol abuse ICD Codes: F10.10 - Alcohol abuse, uncomplicated SNOMED: 64647272 (6) Anemia ICD Codes: D64.9 - Anemia, unspecified SNOMED: 477990869 (7) Alcohol withdrawal ICD Codes: F10.239 - Alcohol dependence with withdrawal, unspecified SNOMED: 491014466 (8) Epileptic seizure, generalized ICD Codes: G40.309 - Generalized idiopathic epilepsy and epileptic syndromes, not intractable, without status epilepticus SNOMED: 51019505 Assessment/Plan continue Novolog sliding scale every 4 hours DC Levemir Subjective ROS Limited/Unobtainable: Yes Allergies: Coded Allergies: No Known Allergies (Unverified , 04/24/18) Subjective events noted Item Value Date Time Bedside Blood Glucose 114 mg/dl 05/04/18 0532 Bedside Blood Glucose 85 mg/dl 05/04/18 0100 Bedside Blood Glucose 101 mg/dl 05/03/18 2100 Bedside Blood Glucose 121 mg/dl H 05/03/18 1704 Bedside Blood Glucose 73 mg/dl 05/03/18 1256 Bedside Blood Glucose 124 mg/dl H 05/03/18 0930 Bedside Blood Glucose 132 mg/dl H 05/03/18 0518 Bedside Blood Glucose 205 mg/dl H 05/03/18 0016 Objective Last 24 Hour Vital Signs Date Time Temp Pulse Resp B/P (MAP) Pulse Ox O2 Delivery O2 Flow Rate FiO2 05/04/18 06:00 100 30 124/64 (84) 97 05/04/18 05:33 90/50 05/04/18 05:30 94 30 89/49 (62) 95 05/04/18 05:00 98 30 111/53 (72) 99 05/04/18 04:45 96 30 97/51 (66) 98 05/04/18 04:30 97 29 95/50 (65) 98 05/04/18 04:15 99 30 88/49 (62) 98 05/04/18 04:00 99 05/04/18 04:00 Mechanical Ventilator 05/04/18 04:00 100 05/04/18 04:00 97.3 103 23 98/57 (71) 84 05/04/18 03:45 101 29 110/57 (74) 93 05/04/18 03:30 98 30 104/52 (69) 95 05/04/18 03:15 98 30 101/52 (68) 95 05/04/18 03:00 98 30 98/55 (69) 95 05/04/18 02:45 99 30 100/54 (69) 95 05/04/18 02:30 98 30 101/53 (69) 95 05/04/18 02:15 92 30 91/49 (63) 94 05/04/18 02:00 98 30 96/51 (66) 96 05/04/18 01:45 97 30 105/53 (70) 97 05/04/18 01:30 96 30 113/56 (75) 97 05/04/18 01:15 92 30 115/59 (77) 97 05/04/18 01:00 85 30 94/51 (65) 100 05/04/18 00:45 81 30 91/54 (66) 97 05/04/18 00:30 82 30 94/51 (65) 98 05/04/18 00:15 81 30 97/48 (64) 98 05/04/18 00:00 97.4 82 30 92/50 (64) 98 05/04/18 00:00 82 05/04/18 00:00 Mechanical Ventilator 05/04/18 00:00 100 05/03/18 23:45 81 30 96/50 (65) 98 05/03/18 23:30 81 30 99/55 (70) 99 05/03/18 23:15 82 30 101/53 (69) 99 05/03/18 23:00 82 30 95/51 (66) 99 05/03/18 22:45 81 30 101/53 (69) 100 05/03/18 22:30 81 30 95/53 (67) 100 05/03/18 22:15 81 30 100/54 (69) 100 05/03/18 22:00 82 30 99/54 (69) 100 05/03/18 21:30 85 30 100 05/03/18 21:30 84 30 98/52 (67) 100 05/03/18 21:00 86 30 107/55 (72) 100 05/03/18 21:00 86 30 107/55 (72) 100 05/03/18 20:30 92 30 133/66 (88) 100 05/03/18 20:00 100 05/03/18 20:00 93 05/03/18 20:00 Mechanical Ventilator 05/03/18 20:00 93 30 137/69 (91) 100 05/03/18 19:45 96 30 171/76 (107) 100 05/03/18 19:35 95 30 100 Mechanical Ventilator 100 05/03/18 19:30 97.5 90 30 142/83 (102) 100 05/03/18 19:24 88 30 100 Mechanical Ventilator 100 05/03/18 19:23 88 30 100 05/03/18 19:00 89 32 128/73 (91) 100 05/03/18 19:00 128/73 05/03/18 19:00 128/73 05/03/18 18:00 86 30 99/58 (72) 100 05/03/18 18:00 99/58 05/03/18 18:00 99/58 05/03/18 18:00 86 30 99/58 (72) 100 05/03/18 17:32 76 30 100 05/03/18 17:30 76 24 86/49 (61) 97 05/03/18 17:15 74 30 92/54 (67) 99 05/03/18 17:00 72 30 94/55 (68) 99 05/03/18 17:00 94/55 05/03/18 17:00 94/55 05/03/18 16:45 97.7 68 30 124/65 (84) 98 05/03/18 16:30 69 30 120/68 (85) 98 05/03/18 16:00 69 30 115/66 (82) 99 05/03/18 16:00 69 05/03/18 16:00 Mechanical Ventilator 05/03/18 16:00 115/66 3/21/19 16:00 115/66 05/03/18 15:34 71 30 100 05/03/18 15:30 70 30 120/69 (86) 100 05/03/18 15:00 69 30 109/64 (79) 98 05/03/18 15:00 109/54 05/03/18 15:00 109/64 05/03/18 14:30 71 33 91/54 (66) 83 05/03/18 14:00 71 30 101/57 (72) 88 05/03/18 14:00 101/57 05/03/18 14:00 101/57 05/03/18 13:30 77 30 144/79 (100) 100 05/03/18 13:23 72 30 86 Mechanical Ventilator 90 05/03/18 13:20 90 05/03/18 13:01 72 30 80 05/03/18 13:00 105/62 05/03/18 13:00 105/62 05/03/18 13:00 72 30 107/60 (76) 88 05/03/18 12:30 97.7 72 30 106/59 (75) 94 05/03/18 12:30 80 05/03/18 12:00 71 30 102/56 (71) 97 05/03/18 12:00 73 05/03/18 12:00 102/56 05/03/18 12:00 102/56 05/03/18 12:00 Mechanical Ventilator 05/03/18 12:00 100 05/03/18 11:30 72 30 102/59 (73) 98 05/03/18 11:00 72 30 114/63 (80) 97 05/03/18 11:00 114/63 05/03/18 11:00 114/63 05/03/18 10:51 72 30 70 05/03/18 10:30 72 30 113/66 (82) 93 05/03/18 10:00 112/66 05/03/18 10:00 112/66 05/03/18 10:00 71 30 112/66 (81) 100 05/03/18 09:30 71 30 108/62 (77) 95 05/03/18 09:00 103/63 05/03/18 09:00 103/63 05/03/18 09:00 72 30 103/63 (76) 95 05/03/18 08:54 71 05/03/18 08:50 72 30 70 05/03/18 08:30 73 30 121/54 (76) 95 05/03/18 08:15 72 30 112/64 (80) 97 05/03/18 08:00 70 05/03/18 08:00 71 30 97/54 (68) 98 05/03/18 08:00 71 30 97/54 (68) 98 05/03/18 08:00 97/54 05/03/18 08:00 97/54 05/03/18 08:00 Mechanical Ventilator 05/03/18 07:45 71 30 89/53 (65) 97 05/03/18 07:30 97.8 70 28 86/53 (64) 91 05/03/18 07:30 86/53 05/03/18 07:27 70 30 70 05/03/18 07:00 72 30 98/68 (78) 95 05/03/18 06:45 73 30 117/70 (86) 98 Intake and Output 05/03/18 05/04/18 19:00 07:00 Intake Total 2213.697 ml 110 ml Output Total 332 ml 90 ml Balance 1881.697 ml 20 ml IV Total 2153.697 ml Tube Feeding 10 ml 110 ml Other 50 ml Output Urine Total 332 ml 90 ml # Bowel Movements 1 1 Laboratory Tests 05/03/18 08:30: White Blood Count 10.6, Red Blood Count 2.57L, Hemoglobin 8.2L, Hematocrit 23.6L , Mean Corpuscular Volume 92, Mean Corpuscular Hemoglobin 31.8H, Mean Corpuscular Hemoglobin Concent 34.6, Red Cell Distribution Width 13.0, Platelet Count 83L, Mean Platelet Volume 7.0, Neutrophils (%) (Auto) , Lymphocytes (%) ( Auto) , Monocytes (%) (Auto) , Eosinophils (%) (Auto) , Basophils (%) (Auto) , Differential Total Cells Counted 100, Neutrophils % (Manual) 89H, Lymphocytes % (Manual) 5L, Monocytes % (Manual) 4, Eosinophils % (Manual) 2, Basophils % ( Manual) 0, Band Neutrophils 0, Platelet Estimate DecreasedL, Platelet Morphology Normal, Arterial Blood pH 7.350, Arterial Blood Partial Pressure CO2 44.4, Arterial Blood Partial Pressure O2 37.9*L, Arterial Blood HCO3 24.0, Arterial Blood Oxygen Saturation 75.4*L, Arterial Blood Base Excess -1.6, Aaron Test Positive, Sodium Level 142, Potassium Level 3.1L, Chloride Level 107, Carbon Dioxide Level 24, Anion Gap 11, Blood Urea Nitrogen 79H, Creatinine 5.2H , Estimat Glomerular Filtration Rate 11.5, Glucose Level 154#H, Calcium Level 7.7L, Total Bilirubin 0.7, Aspartate Amino Transf (AST/SGOT) 89H, Alanine Aminotransferase (ALT/SGPT) 20, Alkaline Phosphatase 103, C-Reactive Protein, Quantitative 27.2H, Total Protein 5.0L, Albumin 1.5L, Globulin 3.5, Albumin/ Globulin Ratio 0.4L, Hepatitis A IgM Antibody Negative, Hepatitis B Surface Antigen Negative, Hepatitis B Core IgM Antibody Negative, Hepatitis C Antibody 0.4 05/03/18 10:21: Arterial Blood pH 7.350, Arterial Blood Partial Pressure CO2 43.3, Arterial Blood Partial Pressure O2 < 45.3*L, Arterial Blood HCO3 23.4, Arterial Blood Oxygen Saturation 71.6*L, Arterial Blood Base Excess -2.2L, Aaron Test Positive 05/03/18 11:00: Opiates Screen [Pending], Oxycodone Level [Pending], Blood Methadone Screen [ Pending], Blood Propoxyphene Screen [Pending], Blood Barbiturates Screen [ Pending], Phencyclidine (PCP) Screen [Pending], Amphetamines Screen [Pending], Benzodiazepines Screen [Pending], Blood Cocaine/Metabolite Screen [Pending], Marijuana (THC) Screen [Pending], Blood Drug Screen Comment [Pending] 05/04/18 03:30: White Blood Count 14.4H, Red Blood Count 2.80L, Hemoglobin 8.8L, Hematocrit 25.9L, Mean Corpuscular Volume 92, Mean Corpuscular Hemoglobin 31.3H, Mean Corpuscular Hemoglobin Concent 33.8, Red Cell Distribution Width 13.8, Platelet Count 85L, Mean Platelet Volume 13.1H, Neutrophils (%) (Auto) , Lymphocytes (%) (Auto) , Monocytes (%) (Auto) , Eosinophils (%) (Auto) , Basophils (%) (Auto) , Sodium Level 144, Potassium Level 3.0L, Chloride Level 106, Carbon Dioxide Level 30, Anion Gap 8, Blood Urea Nitrogen 58H, Creatinine 4.4H, Estimat Glomerular Filtration Rate 13.9, Glucose Level 103, Calcium Level 7.7L, Total Bilirubin 0.5, Aspartate Amino Transf (AST/SGOT) 95H, Alanine Aminotransferase ( ALT/SGPT) 21, Alkaline Phosphatase 123H, Total Protein 5.0L, Albumin 1.3L, Globulin 3.7, Albumin/Globulin Ratio 0.4L, Uric Acid 5.0, Phosphorus Level 2.4L , Magnesium Level 1.6L, Gamma Glutamyl Transpeptidase 143H, Ammonia 47H, Pro-B- Type Natriuretic Peptide [id number] Height (Feet): 5 Height (Inches): 10.00 Weight (Pounds): 170 General Appearance: moderate distress Neck: normal alignment Cardiovascular: normal rate Respiratory/Chest: decreased breath sounds Abdomen: normal bowel sounds Pelvis: normal external exam Objective Current Medications Medications (Trade) Dose Ordered Sig/Bj Route PRN Reason Start Time Stop Time Status Last Admin Dose Admin Acetaminophen (Tylenol) 650 mg Q4H PRN NG Mild Pain/Temp > 100.5 05/01/18 15:30 05/27/18 21:29 05/02/18 02:43 Acetaminophen (Tylenol) 650 mg Q4H PRN RECTAL Mild Pain (Pain Scale 1-3) 04/27/18 21:30 05/27/18 21:29 04/28/18 14:39 Acyclovir 800 mg/ Sodium Chloride 275 ml @ 275 mls/hr Q24HRS IV 05/02/18 10:00 05/29/18 09:59 05/03/18 11:11 Albuterol/ Ipratropium (Albuterol/ Ipratropium) 3 ml Q4H PRN HHN Shortness of Breath 05/03/18 12:45 05/08/18 12:44 Albuterol/ Ipratropium (Albuterol/ Ipratropium) 3 ml Q6HRT HHN 05/03/18 13:00 05/08/18 12:59 05/04/18 01:10 Allopurinol (Zyloprim) 200 mg DAILY NG 04/29/18 09:00 05/28/18 08:59 05/03/18 09:28 Chlorhexidine Gluconate (Lidia-Hex 2%) 1 applic DAILY@2000 TOPIC 05/01/18 20:00 05/31/18 19:59 05/03/18 20:27 Clonidine HCl (Catapres Tab) 0.1 mg Q4H PRN NG bp over 160 syst 05/01/18 15:30 05/26/18 21:29 Dextrose (Dextrose 50%) 25 ml Q30M PRN IV Hypoglycemia 04/29/18 07:30 05/29/18 07:29 Dextrose (Dextrose 50%) 50 ml Q30M PRN IV Hypoglycemia 04/29/18 07:30 05/29/18 07:29 05/03/18 16:40 Dopamine HCl/ Dextrose 250 ml @ 0 mls/hr Q24H IV 05/02/18 04:45 06/01/18 04:44 05/04/18 05:33 Folic Acid (Folate) 1 mg DAILY NG 05/02/18 09:00 06/01/18 08:59 05/03/18 09:32 Heparin Sodium (Porcine) (Heparin 5000 units/ml) 5,000 units EVERY 12 HOURS SUBQ 04/28/18 09:00 05/27/18 20:59 05/02/18 20:55 Insulin Aspart (NovoLOG) EVERY 4 HOURS SUBQ 04/29/18 09:00 05/29/18 08:59 05/04/18 05:32 Insulin Detemir (Levemir) 15 units BID SUBQ 05/02/18 09:00 05/29/18 08:59 05/03/18 09:29 Iron Sucrose 100 mg/Sodium Chloride 60 ml @ 240 mls/hr BEDTIME IV 04/30/18 21:00 05/04/18 21:14 05/03/18 20:27 Levetiracetam 250 mg/Sodium Chloride 112.5 ml @ 450 mls/hr Q12HR IV 04/27/18 22:00 05/27/18 21:59 05/03/18 21:31 Lorazepam (Ativan 2mg/ml 1ml) 2 mg Q4H PRN IV For Anxiety 04/30/18 09:45 05/07/18 09:44 05/01/18 03:38 Metoclopramide HCl (Reglan) 10 mg Q6H PRN IVP Nausea & Vomiting 04/27/18 21:30 05/27/18 21:29 Midazolam HCl 100 ml @ 2 mls/hr Q24H IVPB 04/28/18 16:15 05/05/18 16:14 04/30/18 19:55 Midodrine (Pro-Amatine) 2.5 mg Q8H PRN NG bp below 100 syst 05/02/18 15:45 06/01/18 15:44 Multivitamins (Multivitamins) 1 tab DAILY ORAL 05/02/18 09:00 06/01/18 08:59 05/03/18 09:28 Norepinephrine Bitartrate 8 mg/ Dextrose 508 ml @ 0 mls/hr Q24H IV 04/29/18 07:45 05/29/18 07:44 05/02/18 18:57 Ondansetron HCl (Zofran) 4 mg Q6H PRN IVP Nausea & Vomiting 04/27/18 21:30 05/27/18 21:29 Pantoprazole (Protonix) 40 mg EVERY 12 HOURS IVP 04/28/18 09:00 05/25/18 20:59 05/03/18 20:27 Phenytoin 300 mg/ Sodium Chloride 116 ml @ 120 mls/hr DAILY IVPB 04/28/18 09:00 05/28/18 08:59 05/03/18 09:28 Piperacillin Sod/ Tazobactam Sod 3.375 gm/Sodium Chloride 110 ml @ 27.5 mls/hr Q12H IVPB 04/29/18 00:00 05/06/18 00:00 05/04/18 00:00 Sodium Bicarbonate 150 ml/Dextrose/ Sodium Chloride 1,150 ml @ 100 mls/hr [id number] IV 05/02/18 15:00 06/01/18 14:59 05/04/18 01:30 Thiamine HCl 100 mg/Sodium Chloride 56 ml @ 112 mls/hr Q24H IVPB 04/29/18 15:00 05/29/18 14:59 05/03/18 16:23 Vasopressin 100 units/Sodium Chloride 100 ml @ 2.4 mls/hr Q24H IV 05/03/18 05:00 06/02/18 04:59 05/03/18 05:18 Shoaib Ocampo MD May 04, 2018 06:33
--- NOTE | 2018-05-04 07:00 | NUR ---
RESPIRATORY NOTE: Received pt on ETT 7.5 @ 26cm lips line with the current vent setting: AC 30- 550ml-100%FiO2- peep 10, saturates at 95%. Pt is obtunded, flat effect, shallow breathing, and pt is just running the vent. Az rales breath sounds heard upon auscultation, sxn scant to minimal thick/thin olivera white secretions without incidents. Breathing TX given without advert reactions. Alarms are on and audible, ambu bag with PEEP at bedside, vent is plugged into the red outlet. Will continue to monitor pt closely.
--- NOTE | 2018-05-04 07:10 | NUR ---
HAND-OFF: Report given to SHARLA Pena
--- NOTE | 2018-05-04 08:11 | NUR ---
NURSE NOTES: Patient received in comatose state.Non responsive to verbal and deep pain. Orally intubated , ETT 7.5 AC 30 Vt 550 FiO2 100% Peep 10 but still noted with episode of desaturation at 86.Afebrile, oral care done, turned and repositioned.Will continue to monitor.
[2018-05-04] MEDS: Pantoprazole Inj IVP SCH ×2 (08:48→20:10)
[2018-05-04] MEDS: Allopurinol 100mg Tab NG SCH (08:48)
[2018-05-04] MEDS: Heparin 5000 units/ml inj SUBQ SCH ×2 (08:49→20:10)
--- NOTE | 2018-05-04 10:08 | NUR ---
NURSE NOTES: Mouth care done, Levophed and Dopamine titrated as needed. Unable to titrate patient pressors meds as he going hypotensive.Seen by Dr Rojas, will continue close monitoring
[2018-05-04] MEDS ORDERED: Potassium Phosphate 20 MM in NS 275 ML IV SCH (10:15)
--- NOTE | 2018-05-04 10:33 | NUR ---
RESPIRATORY NOTE: Pt is desaturating to 72%, started to bag pt with ambu bag, SHARLA Pena at the bedside. Saturation went up and stayed at 88%. Put pt back on vent with the same previous setting. No resp distress at this time. Will continue to monitor pt.
[2018-05-04] MEDS: ACYCLOVIR IV SCH (10:57)
[2018-05-04] MEDS: LEVETIRACETAM IV SCH ×2 (10:57→21:45)
[2018-05-04] MEDS: NS IV SCH ×3 (10:57→21:45)
[2018-05-04] MEDS: NS IVPB SCH (10:58)
[2018-05-04] MEDS: PHENYTOIN IVPB SCH (10:58)
--- NOTE | 2018-05-04 11:44 | Nephrology Progress Note ---
Assessment/Plan Problem List: (1) Renal failure (ARF), acute on chronic Assessment: Cr rising (2) Diabetic nephropathy (3) Epileptic seizure, generalized (4) Alcohol abuse (5) Anemia (6) Acute respiratory failure Assessment Renal failure- Acute on Chronic Cr rising Anemia HTN by History MJ abuse Etoh abuse DM / Proteinuria : Nephropathy Fever , etiology? Plan coded for low HR 05/01 on Van co Zosyn , Acyclovir placement of temp dialysis cath and dialyse hold vanco and adjust dose by myself dialysed 05/03 increase Midodrin Nepro feeding Adjust Acyclovir dose per Neuro request avoid Nephrotoxics keep BP and BS in check AMIRA kidney noted 2D echo noted Urine studies pending fluid challenge as needed Allopurinol monitor renal parameters K and Phos and Mag as needed monitor Dilantin level Per orders Subjective ROS Limited/Unobtainable: Yes Objective Objective Last 24 Hour Vital Signs Date Time Temp Pulse Resp B/P (MAP) Pulse Ox O2 Delivery O2 Flow Rate FiO2 05/04/18 11:00 108 30 84/50 (61) 87 05/04/18 10:33 118 30 100 05/04/18 10:00 102 30 92/50 (64) 97 05/04/18 09:20 90 30 100 05/04/18 09:00 94 30 131/60 (83) 97 05/04/18 08:00 99 05/04/18 08:00 Mechanical Ventilator 05/04/18 08:00 100 05/04/18 08:00 98.2 95 30 118/60 (79) 97 05/04/18 07:45 98/48 05/04/18 07:01 94 30 100 Mechanical Ventilator 100 05/04/18 07:00 95 30 92/49 (63) 97 05/04/18 06:51 94 30 95 Mechanical Ventilator 100 05/04/18 06:50 95 30 100 05/04/18 06:30 100 30 118/61 (80) 97 05/04/18 06:00 100 30 124/64 (84) 97 05/04/18 06:00 124/64 05/04/18 06:00 124/64 05/04/18 05:33 90/50 05/04/18 05:30 94 30 89/49 (62) 95 05/04/18 05:00 98 30 111/53 (72) 99 05/04/18 05:00 111/53 05/04/18 05:00 111/53 05/04/18 04:45 96 30 97/51 (66) 98 05/04/18 04:30 97 29 95/50 (65) 98 05/04/18 04:15 99 30 88/49 (62) 98 05/04/18 04:00 99 05/04/18 04:00 Mechanical Ventilator 05/04/18 04:00 100 05/04/18 04:00 98/57 05/04/18 04:00 98/57 05/04/18 04:00 97.3 103 23 98/57 (71) 84 05/04/18 03:45 101 29 110/57 (74) 93 05/04/18 03:30 98 30 104/52 (69) 95 05/04/18 03:15 98 30 101/52 (68) 95 05/04/18 03:00 98/55 05/04/18 03:00 98/55 05/04/18 03:00 98 30 98/55 (69) 95 05/04/18 02:45 99 30 100/54 (69) 95 05/04/18 02:30 98 30 101/53 (69) 95 05/04/18 02:15 92 30 91/49 (63) 94 05/04/18 02:00 96/51 05/04/18 02:00 96/51 05/04/18 02:00 98 30 96/51 (66) 96 05/04/18 01:45 97 30 105/53 (70) 97 05/04/18 01:30 96 30 113/56 (75) 97 05/04/18 01:15 92 30 115/59 (77) 97 05/04/18 01:00 94/51 05/04/18 01:00 94/51 05/04/18 01:00 85 30 94/51 (65) 100 05/04/18 00:45 81 30 91/54 (66) 97 05/04/18 00:30 82 30 94/51 (65) 98 05/04/18 00:15 81 30 97/48 (64) 98 05/04/18 00:00 97.4 82 30 92/50 (64) 98 05/04/18 00:00 82 3/22/19 00:00 Mechanical Ventilator 05/04/18 00:00 97/48 05/04/18 00:00 97/48 05/04/18 00:00 100 05/03/18 23:45 81 30 96/50 (65) 98 05/03/18 23:30 81 30 99/55 (70) 99 05/03/18 23:15 82 30 101/53 (69) 99 05/03/18 23:00 82 30 95/51 (66) 99 05/03/18 23:00 101/53 05/03/18 23:00 101/53 05/03/18 22:45 81 30 101/53 (69) 100 05/03/18 22:30 81 30 95/53 (67) 100 05/03/18 22:15 81 30 100/54 (69) 100 05/03/18 22:00 100/54 05/03/18 22:00 100/54 05/03/18 22:00 82 30 99/54 (69) 100 05/03/18 21:30 85 30 100 05/03/18 21:30 84 30 98/52 (67) 100 05/03/18 21:00 102/55 05/03/18 21:00 102/55 05/03/18 21:00 86 30 107/55 (72) 100 05/03/18 21:00 86 30 107/55 (72) 100 05/03/18 20:30 92 30 133/66 (88) 100 05/03/18 20:00 100 05/03/18 20:00 137/67 05/03/18 20:00 137/67 05/03/18 20:00 93 05/03/18 20:00 Mechanical Ventilator 05/03/18 20:00 93 30 137/69 (91) 100 05/03/18 19:45 96 30 171/76 (107) 100 05/03/18 19:35 95 30 100 Mechanical Ventilator 100 05/03/18 19:30 97.5 90 30 142/83 (102) 100 05/03/18 19:24 88 30 100 Mechanical Ventilator 100 05/03/18 19:23 88 30 100 05/03/18 19:00 89 32 128/73 (91) 100 05/03/18 19:00 128/73 05/03/18 19:00 128/73 05/03/18 18:00 86 30 99/58 (72) 100 05/03/18 18:00 99/58 05/03/18 18:00 99/58 05/03/18 18:00 86 30 99/58 (72) 100 05/03/18 17:32 76 30 100 05/03/18 17:30 76 24 86/49 (61) 97 05/03/18 17:15 74 30 92/54 (67) 99 05/03/18 17:00 72 30 94/55 (68) 99 05/03/18 17:00 94/55 05/03/18 17:00 94/55 05/03/18 16:45 97.7 68 30 124/65 (84) 98 05/03/18 16:30 69 30 120/68 (85) 98 05/03/18 16:00 69 30 115/66 (82) 99 05/03/18 16:00 69 05/03/18 16:00 Mechanical Ventilator 05/03/18 16:00 115/66 05/03/18 16:00 115/66 05/03/18 15:34 71 30 100 05/03/18 15:30 70 30 120/69 (86) 100 05/03/18 15:00 69 30 109/64 (79) 98 05/03/18 15:00 109/54 05/03/18 15:00 109/64 05/03/18 14:30 71 33 91/54 (66) 83 05/03/18 14:00 71 30 101/57 (72) 88 05/03/18 14:00 101/57 05/03/18 14:00 101/57 05/03/18 13:30 77 30 144/79 (100) 100 05/03/18 13:23 72 30 86 Mechanical Ventilator 90 05/03/18 13:20 90 05/03/18 13:01 72 30 80 05/03/18 13:00 105/62 05/03/18 13:00 105/62 05/03/18 13:00 72 30 107/60 (76) 88 05/03/18 12:30 97.7 72 30 106/59 (75) 94 05/03/18 12:30 80 05/03/18 12:00 71 30 102/56 (71) 97 05/03/18 12:00 73 05/03/18 12:00 102/56 05/03/18 12:00 102/56 05/03/18 12:00 Mechanical Ventilator 05/03/18 12:00 100 Intake and Output 05/03/18 05/04/18 19:00 07:00 Intake Total 2213.697 ml 1663.858 ml Output Total 332 ml 100 ml Balance 1881.697 ml 1563.858 ml IV Total 2153.697 ml 1543.858 ml Tube Feeding 10 ml 120 ml Other 50 ml Output Urine Total 332 ml 100 ml # Bowel Movements 1 1 Laboratory Tests 05/04/18 03:30: White Blood Count 14.4H, Red Blood Count 2.80L, Hemoglobin 8.8L, Hematocrit 25.9L, Mean Corpuscular Volume 92, Mean Corpuscular Hemoglobin 31.3H, Mean Corpuscular Hemoglobin Concent 33.8, Red Cell Distribution Width 13.8, Platelet Count 85L, Mean Platelet Volume 13.1H, Neutrophils (%) (Auto) , Lymphocytes (%) (Auto) , Monocytes (%) (Auto) , Eosinophils (%) (Auto) , Basophils (%) (Auto) , Sodium Level 144, Potassium Level 3.0L, Chloride Level 106, Carbon Dioxide Level 30, Anion Gap 8, Blood Urea Nitrogen 58H, Creatinine 4.4H, Estimat Glomerular Filtration Rate 13.9, Glucose Level 103, Uric Acid 5.0, Calcium Level 7.7L, Phosphorus Level 2.4L, Magnesium Level 1.6L, Total Bilirubin 0.5, Gamma Glutamyl Transpeptidase 143H, Aspartate Amino Transf (AST/SGOT) 95H, Alanine Aminotransferase (ALT/SGPT) 21, Alkaline Phosphatase 123H, Ammonia 47H, Pro-B-Type Natriuretic Peptide [id number], Total Protein 5.0L, Albumin 1.3L, Globulin 3.7, Albumin/Globulin Ratio 0.4L Height (Feet): 5 Height (Inches): 10.00 Weight (Pounds): 170 EENT: other - vented Respiratory/Chest: decreased breath sounds Abdomen: distended Deon Rojas MD May 04, 2018 11:44
--- NOTE | 2018-05-04 12:11 | NUR ---
NURSE NOTES: Patient still noted with episodes desaturation.RT at bedside continuously bagging patient. Kept on close monitoring
[2018-05-04] MEDS: Piperacillin/Tazobactam 3.375 GM in NS 110 ML IVPB SCH ×3 (12:19)
[2018-05-04] MEDS: D5 1/2NS 1,000 ML IV SCH (12:23)
--- NOTE | 2018-05-04 12:54 | General Progress Note ---
Assessment/Plan Problem List: (1) Renal insufficiency ICD Codes: N28.9 - Disorder of kidney and ureter, unspecified SNOMED: 151302171, 654209314 (2) Marijuana abuse ICD Codes: F12.10 - Cannabis abuse, uncomplicated SNOMED: 44999787 (3) Anemia ICD Codes: D64.9 - Anemia, unspecified SNOMED: 971083353 (4) Alcohol abuse ICD Codes: F10.10 - Alcohol abuse, uncomplicated SNOMED: 96055492 (5) Epileptic seizure, generalized ICD Codes: G40.309 - Generalized idiopathic epilepsy and epileptic syndromes, not intractable, without status epilepticus SNOMED: 77581455 (6) Diabetic nephropathy ICD Codes: E11.21 - Type 2 diabetes mellitus with diabetic nephropathy SNOMED: 010525862 Assessment/Plan monitor labs icu care fu pulm TF on hold due to elevated residuals add reglan neuro notes appreciated>>? brain poor prognosis abx fu pending repeat EEG Subjective ROS Limited/Unobtainable: No Allergies: Coded Allergies: No Known Allergies (Unverified , 04/24/18) Subjective intubated coded this morning on pressor Objective Last 24 Hour Vital Signs Date Time Temp Pulse Resp B/P (MAP) Pulse Ox O2 Delivery O2 Flow Rate FiO2 05/04/18 12:00 100 05/04/18 12:00 Mechanical Ventilator 05/04/18 12:00 67 30 71/35 (47) 80 05/04/18 11:00 108 30 84/50 (61) 87 05/04/18 11:00 90/48 05/04/18 10:33 118 30 100 05/04/18 10:00 102 30 92/50 (64) 97 05/04/18 10:00 131/60 05/04/18 09:20 90 30 100 05/04/18 09:00 80/47 05/04/18 09:00 94 30 131/60 (83) 97 05/04/18 08:00 99 05/04/18 08:00 118/60 05/04/18 08:00 Mechanical Ventilator 05/04/18 08:00 100 05/04/18 08:00 98.2 95 30 118/60 (79) 97 05/04/18 07:45 98/48 05/04/18 07:01 94 30 100 Mechanical Ventilator 100 3/22/19 07:00 92/49 05/04/18 07:00 92/49 05/04/18 07:00 95 30 92/49 (63) 97 05/04/18 06:51 94 30 95 Mechanical Ventilator 100 05/04/18 06:50 95 30 100 05/04/18 06:30 100 30 118/61 (80) 97 05/04/18 06:00 100 30 124/64 (84) 97 05/04/18 06:00 124/64 05/04/18 06:00 124/64 05/04/18 05:33 90/50 05/04/18 05:30 94 30 89/49 (62) 95 05/04/18 05:00 98 30 111/53 (72) 99 05/04/18 05:00 111/53 05/04/18 05:00 111/53 05/04/18 04:45 96 30 97/51 (66) 98 05/04/18 04:30 97 29 95/50 (65) 98 05/04/18 04:15 99 30 88/49 (62) 98 05/04/18 04:00 99 05/04/18 04:00 Mechanical Ventilator 05/04/18 04:00 100 05/04/18 04:00 98/57 05/04/18 04:00 98/57 05/04/18 04:00 97.3 103 23 98/57 (71) 84 05/04/18 03:45 101 29 110/57 (74) 93 05/04/18 03:30 98 30 104/52 (69) 95 05/04/18 03:15 98 30 101/52 (68) 95 05/04/18 03:00 98/55 05/04/18 03:00 98/55 05/04/18 03:00 98 30 98/55 (69) 95 05/04/18 02:45 99 30 100/54 (69) 95 05/04/18 02:30 98 30 101/53 (69) 95 05/04/18 02:15 92 30 91/49 (63) 94 05/04/18 02:00 96/51 05/04/18 02:00 96/51 05/04/18 02:00 98 30 96/51 (66) 96 05/04/18 01:45 97 30 105/53 (70) 97 05/04/18 01:30 96 30 113/56 (75) 97 05/04/18 01:15 92 30 115/59 (77) 97 05/04/18 01:00 94/51 05/04/18 01:00 94/51 05/04/18 01:00 85 30 94/51 (65) 100 05/04/18 00:45 81 30 91/54 (66) 97 05/04/18 00:30 82 30 94/51 (65) 98 05/04/18 00:15 81 30 97/48 (64) 98 05/04/18 00:00 97.4 82 30 92/50 (64) 98 05/04/18 00:00 82 05/04/18 00:00 Mechanical Ventilator 05/04/18 00:00 97/48 05/04/18 00:00 97/48 05/04/18 00:00 100 05/03/18 23:45 81 30 96/50 (65) 98 05/03/18 23:30 81 30 99/55 (70) 99 05/03/18 23:15 82 30 101/53 (69) 99 05/03/18 23:00 82 30 95/51 (66) 99 05/03/18 23:00 101/53 05/03/18 23:00 101/53 05/03/18 22:45 81 30 101/53 (69) 100 05/03/18 22:30 81 30 95/53 (67) 100 05/03/18 22:15 81 30 100/54 (69) 100 05/03/18 22:00 100/54 05/03/18 22:00 100/54 05/03/18 22:00 82 30 99/54 (69) 100 05/03/18 21:30 85 30 100 05/03/18 21:30 84 30 98/52 (67) 100 05/03/18 21:00 102/55 05/03/18 21:00 102/55 05/03/18 21:00 86 30 107/55 (72) 100 05/03/18 21:00 86 30 107/55 (72) 100 05/03/18 20:30 92 30 133/66 (88) 100 05/03/18 20:00 100 05/03/18 20:00 137/67 3/21/19 20:00 137/67 05/03/18 20:00 93 05/03/18 20:00 Mechanical Ventilator 05/03/18 20:00 93 30 137/69 (91) 100 05/03/18 19:45 96 30 171/76 (107) 100 05/03/18 19:35 95 30 100 Mechanical Ventilator 100 05/03/18 19:30 97.5 90 30 142/83 (102) 100 05/03/18 19:24 88 30 100 Mechanical Ventilator 100 05/03/18 19:23 88 30 100 05/03/18 19:00 89 32 128/73 (91) 100 05/03/18 19:00 128/73 05/03/18 19:00 128/73 05/03/18 18:00 86 30 99/58 (72) 100 05/03/18 18:00 99/58 05/03/18 18:00 99/58 05/03/18 18:00 86 30 99/58 (72) 100 05/03/18 17:32 76 30 100 05/03/18 17:30 76 24 86/49 (61) 97 05/03/18 17:15 74 30 92/54 (67) 99 05/03/18 17:00 72 30 94/55 (68) 99 05/03/18 17:00 94/55 05/03/18 17:00 94/55 05/03/18 16:45 97.7 68 30 124/65 (84) 98 05/03/18 16:30 69 30 120/68 (85) 98 05/03/18 16:00 69 30 115/66 (82) 99 05/03/18 16:00 69 05/03/18 16:00 Mechanical Ventilator 05/03/18 16:00 115/66 05/03/18 16:00 115/66 05/03/18 15:34 71 30 100 05/03/18 15:30 70 30 120/69 (86) 100 05/03/18 15:00 69 30 109/64 (79) 98 05/03/18 15:00 109/54 05/03/18 15:00 109/64 05/03/18 14:30 71 33 91/54 (66) 83 05/03/18 14:00 71 30 101/57 (72) 88 05/03/18 14:00 101/57 05/03/18 14:00 101/57 05/03/18 13:30 77 30 144/79 (100) 100 05/03/18 13:23 72 30 86 Mechanical Ventilator 90 05/03/18 13:20 90 05/03/18 13:01 72 30 80 05/03/18 13:00 105/62 05/03/18 13:00 105/62 05/03/18 13:00 72 30 107/60 (76) 88 Intake and Output 05/03/18 05/04/18 19:00 07:00 Intake Total 2213.697 ml 1680.528 ml Output Total 332 ml 100 ml Balance 1881.697 ml 1580.528 ml IV Total 2153.697 ml 1560.528 ml Tube Feeding 10 ml 120 ml Other 50 ml Output Urine Total 332 ml 100 ml # Bowel Movements 1 1 Laboratory Tests 05/04/18 03:30: White Blood Count 14.4H, Red Blood Count 2.80L, Hemoglobin 8.8L, Hematocrit 25.9L, Mean Corpuscular Volume 92, Mean Corpuscular Hemoglobin 31.3H, Mean Corpuscular Hemoglobin Concent 33.8, Red Cell Distribution Width 13.8, Platelet Count 85L, Mean Platelet Volume 13.1H, Neutrophils (%) (Auto) , Lymphocytes (%) (Auto) , Monocytes (%) (Auto) , Eosinophils (%) (Auto) , Basophils (%) (Auto) , Sodium Level 144, Potassium Level 3.0L, Chloride Level 106, Carbon Dioxide Level 30, Anion Gap 8, Blood Urea Nitrogen 58H, Creatinine 4.4H, Estimat Glomerular Filtration Rate 13.9, Glucose Level 103, Uric Acid 5.0, Calcium Level 7.7L, Phosphorus Level 2.4L, Magnesium Level 1.6L, Total Bilirubin 0.5, Gamma Glutamyl Transpeptidase 143H, Aspartate Amino Transf (AST/SGOT) 95H, Alanine Aminotransferase (ALT/SGPT) 21, Alkaline Phosphatase 123H, Ammonia 47H, Pro-B-Type Natriuretic Peptide 36429R, Total Protein 5.0L, Albumin 1.3L, Globulin 3.7, Albumin/Globulin Ratio 0.4L 05/04/18 03:50: Random Vancomycin Level 18.6 Height (Feet): 5 Height (Inches): 10.00 Weight (Pounds): 170 General Appearance: lethargic EENT: normal ENT inspection Neck: supple Cardiovascular: normal rate Respiratory/Chest: decreased breath sounds Abdomen: normal bowel sounds, non tender, soft Extremities: non-tender Tyler Jarrett MD May 04, 2018 12:54
--- NOTE | 2018-05-04 13:10 | NUR ---
RESPIRATORY NOTE: Pt is desaturating to 56%, HR decreased down to 52bpm, started to bag pt with ambu bag with peep of 10, RN Becky at the bedside. Saturation went up and stayed at 89%, HR 140bpm. Put pt back on vent with the same previous setting. No resp distress at this time. Will continue to monitor pt.
--- NOTE | 2018-05-04 14:01 | Infectious Diseases Prog Note ---
Assessment/Plan Assessment/Plan A 1. aspiration pneumonia 2. Sepsis, Septic shock 3.Hypoxemic respiratory failure 4. seizures 5. Acute renal failure 6. alcohol withdrawal 7. Anoxic encephalopathy, ? brain 8.severe anemia 9. ARDS 10. cardiopulmonary arrest P 1. Continue Zosyn & Acyclovir & Vancomycin 2. case was D/W RN Subjective ROS Limited/Unobtainable: Yes Constitutional: Reports: other - in critical condition in ICU Respiratory: Reports: other - desaturating Neurologic: Reports: other - anuric, started on HD Allergies: Coded Allergies: No Known Allergies (Unverified , 04/24/18) Objective Vital Signs Last 24 Hour Vital Signs Date Time Temp Pulse Resp B/P (MAP) Pulse Ox O2 Delivery O2 Flow Rate FiO2 05/04/18 13:11 140 Mechanical Ventilator 100 05/04/18 13:11 140 Mechanical Ventilator 100 05/04/18 13:09 140 30 100 05/04/18 12:00 100 05/04/18 12:00 Mechanical Ventilator 05/04/18 12:00 67 30 71/35 (47) 80 05/04/18 11:00 108 30 84/50 (61) 87 05/04/18 11:00 90/48 05/04/18 10:33 118 30 100 05/04/18 10:00 102 30 92/50 (64) 97 05/04/18 10:00 131/60 05/04/18 09:20 90 30 100 05/04/18 09:00 80/47 05/04/18 09:00 94 30 131/60 (83) 97 05/04/18 08:00 99 05/04/18 08:00 118/60 05/04/18 08:00 Mechanical Ventilator 05/04/18 08:00 100 05/04/18 08:00 98.2 95 30 118/60 (79) 97 05/04/18 07:45 98/48 05/04/18 07:01 94 30 100 Mechanical Ventilator 100 05/04/18 07:00 92/49 05/04/18 07:00 92/49 05/04/18 07:00 95 30 92/49 (63) 97 05/04/18 06:51 94 30 95 Mechanical Ventilator 100 05/04/18 06:50 95 30 100 05/04/18 06:30 100 30 118/61 (80) 97 05/04/18 06:00 100 30 124/64 (84) 97 05/04/18 06:00 124/64 05/04/18 06:00 124/64 05/04/18 05:33 90/50 05/04/18 05:30 94 30 89/49 (62) 95 05/04/18 05:00 98 30 111/53 (72) 99 05/04/18 05:00 111/53 05/04/18 05:00 111/53 05/04/18 04:45 96 30 97/51 (66) 98 05/04/18 04:30 97 29 95/50 (65) 98 05/04/18 04:15 99 30 88/49 (62) 98 05/04/18 04:00 99 05/04/18 04:00 Mechanical Ventilator 05/04/18 04:00 100 05/04/18 04:00 98/57 05/04/18 04:00 98/57 05/04/18 04:00 97.3 103 23 98/57 (71) 84 05/04/18 03:45 101 29 110/57 (74) 93 05/04/18 03:30 98 30 104/52 (69) 95 05/04/18 03:15 98 30 101/52 (68) 95 05/04/18 03:00 98/55 05/04/18 03:00 98/55 05/04/18 03:00 98 30 98/55 (69) 95 05/04/18 02:45 99 30 100/54 (69) 95 05/04/18 02:30 98 30 101/53 (69) 95 05/04/18 02:15 92 30 91/49 (63) 94 05/04/18 02:00 96/51 05/04/18 02:00 96/51 05/04/18 02:00 98 30 96/51 (66) 96 05/04/18 01:45 97 30 105/53 (70) 97 05/04/18 01:30 96 30 113/56 (75) 97 05/04/18 01:15 92 30 115/59 (77) 97 05/04/18 01:00 94/51 05/04/18 01:00 94/51 05/04/18 01:00 85 30 94/51 (65) 100 05/04/18 00:45 81 30 91/54 (66) 97 05/04/18 00:30 82 30 94/51 (65) 98 05/04/18 00:15 81 30 97/48 (64) 98 05/04/18 00:00 97.4 82 30 92/50 (64) 98 05/04/18 00:00 82 05/04/18 00:00 Mechanical Ventilator 05/04/18 00:00 97/48 05/04/18 00:00 97/48 05/04/18 00:00 100 05/03/18 23:45 81 30 96/50 (65) 98 05/03/18 23:30 81 30 99/55 (70) 99 05/03/18 23:15 82 30 101/53 (69) 99 05/03/18 23:00 82 30 95/51 (66) 99 05/03/18 23:00 101/53 05/03/18 23:00 101/53 05/03/18 22:45 81 30 101/53 (69) 100 05/03/18 22:30 81 30 95/53 (67) 100 05/03/18 22:15 81 30 100/54 (69) 100 05/03/18 22:00 100/54 05/03/18 22:00 100/54 05/03/18 22:00 82 30 99/54 (69) 100 05/03/18 21:30 85 30 100 05/03/18 21:30 84 30 98/52 (67) 100 05/03/18 21:00 102/55 05/03/18 21:00 102/55 05/03/18 21:00 86 30 107/55 (72) 100 05/03/18 21:00 86 30 107/55 (72) 100 05/03/18 20:30 92 30 133/66 (88) 100 05/03/18 20:00 100 05/03/18 20:00 137/67 05/03/18 20:00 137/67 05/03/18 20:00 93 05/03/18 20:00 Mechanical Ventilator 05/03/18 20:00 93 30 137/69 (91) 100 05/03/18 19:45 96 30 171/76 (107) 100 05/03/18 19:35 95 30 100 Mechanical Ventilator 100 05/03/18 19:30 97.5 90 30 142/83 (102) 100 05/03/18 19:24 88 30 100 Mechanical Ventilator 100 05/03/18 19:23 88 30 100 05/03/18 19:00 89 32 128/73 (91) 100 05/03/18 19:00 128/73 05/03/18 19:00 128/73 05/03/18 18:00 86 30 99/58 (72) 100 05/03/18 18:00 99/58 05/03/18 18:00 99/58 05/03/18 18:00 86 30 99/58 (72) 100 05/03/18 17:32 76 30 100 05/03/18 17:30 76 24 86/49 (61) 97 05/03/18 17:15 74 30 92/54 (67) 99 05/03/18 17:00 72 30 94/55 (68) 99 05/03/18 17:00 94/55 05/03/18 17:00 94/55 05/03/18 16:45 97.7 68 30 124/65 (84) 98 05/03/18 16:30 69 30 120/68 (85) 98 05/03/18 16:00 69 30 115/66 (82) 99 05/03/18 16:00 69 05/03/18 16:00 Mechanical Ventilator 05/03/18 16:00 115/66 05/03/18 16:00 115/66 05/03/18 15:34 71 30 100 05/03/18 15:30 70 30 120/69 (86) 100 05/03/18 15:00 69 30 109/64 (79) 98 05/03/18 15:00 109/54 05/03/18 15:00 109/64 05/03/18 14:30 71 33 91/54 (66) 83 05/03/18 14:00 71 30 101/57 (72) 88 05/03/18 14:00 101/57 05/03/18 14:00 101/57 Height (Feet): 5 Height (Inches): 10.00 Weight (Pounds): 170 HEENT: mucous membranes moist, other - orally intubated Respiratory/Chest: lungs clear, other - on ventilator, decreased sonds in left side Cardiovascular: tachycardia, other - RIJ central line Abdomen: soft, non tender, other - NG tube Extremities: other - neralized edema Neurologic/Psychiatric: unresponsiveness Microbiology Date/Time Source Procedure Growth Status 05/03/18 07:50 Sputum Gram Stain - Final Resulted 05/03/18 07:50 Sputum Sputum Culture - Preliminary NO GROWTH Resulted Laboratory Tests Test 05/04/18 03:30 05/04/18 03:50 White Blood Count 14.4 K/UL (4.8-10.8) H Red Blood Count 2.80 M/UL (4.70-6.10) L Hemoglobin 8.8 G/DL (14.2-18.0) L Hematocrit 25.9 % (42.0-52.0) L Mean Corpuscular Volume 92 FL (80-99) Mean Corpuscular Hemoglobin 31.3 PG (27.0-31.0) H Mean Corpuscular Hemoglobin Concent 33.8 G/DL (32.0-36.0) Red Cell Distribution Width 13.8 % (11.6-14.8) Platelet Count 85 K/UL (150-450) L Mean Platelet Volume 13.1 FL (6.5-10.1) H Neutrophils (%) (Auto) % (45.0-75.0) Lymphocytes (%) (Auto) % (20.0-45.0) Monocytes (%) (Auto) % (1.0-10.0) Eosinophils (%) (Auto) % (0.0-3.0) Basophils (%) (Auto) % (0.0-2.0) Sodium Level 144 MMOL/L (136-145) Potassium Level 3.0 MMOL/L (3.5-5.1) L Chloride Level 106 MMOL/L (98-107) Carbon Dioxide Level 30 MMOL/L (21-32) Anion Gap 8 mmol/L (5-15) Blood Urea Nitrogen 58 mg/dL (7-18) H Creatinine 4.4 MG/DL (0.55-1.30) H Estimat Glomerular Filtration Rate 13.9 mL/min (>60) Glucose Level 103 MG/DL (74-106) Uric Acid 5.0 MG/DL (2.6-7.2) Calcium Level 7.7 MG/DL (8.5-10.1) L Phosphorus Level 2.4 MG/DL (2.5-4.9) L Magnesium Level 1.6 MG/DL (1.8-2.4) L Total Bilirubin 0.5 MG/DL (0.2-1.0) Gamma Glutamyl Transpeptidase 143 U/L (5-85) H Aspartate Amino Transf (AST/SGOT) 95 U/L (15-37) H Alanine Aminotransferase (ALT/SGPT) 21 U/L (12-78) Alkaline Phosphatase 123 U/L (46-116) H Ammonia 47 umol/L (11-32) H Pro-B-Type Natriuretic Peptide 75903 pg/mL (0-125) H Total Protein 5.0 G/DL (6.4-8.2) L Albumin 1.3 G/DL (3.4-5.0) L Globulin 3.7 g/dL Albumin/Globulin Ratio 0.4 (1.0-2.7) L Random Vancomycin Level 18.6 ug/mL Current Medications Medications (Trade) Dose Ordered Sig/Bj Route PRN Reason Start Time Stop Time Status Last Admin Dose Admin Acetaminophen (Tylenol) 650 mg Q4H PRN NG Mild Pain/Temp > 100.5 05/01/18 15:30 05/27/18 21:29 05/02/18 02:43 Acetaminophen (Tylenol) 650 mg Q4H PRN RECTAL Mild Pain (Pain Scale 1-3) 04/27/18 21:30 05/27/18 21:29 04/28/18 14:39 Acyclovir 800 mg/ Sodium Chloride 275 ml @ 275 mls/hr Q24HRS IV 05/02/18 10:00 05/12/18 11:00 05/04/18 10:57 Albuterol/ Ipratropium (Albuterol/ Ipratropium) 3 ml Q4H PRN HHN Shortness of Breath 05/03/18 12:45 05/08/18 12:44 Albuterol/ Ipratropium (Albuterol/ Ipratropium) 3 ml Q6HRT HHN 05/03/18 13:00 05/08/18 12:59 05/04/18 06:51 Allopurinol (Zyloprim) 200 mg DAILY NG 04/29/18 09:00 05/28/18 08:59 05/04/18 08:48 Chlorhexidine Gluconate (Lidia-Hex 2%) 1 applic DAILY@2000 TOPIC 05/01/18 20:00 05/31/18 19:59 05/03/18 20:27 Clonidine HCl (Catapres Tab) 0.1 mg Q4H PRN NG bp over 160 syst 05/01/18 15:30 05/26/18 21:29 Dextrose (Dextrose 50%) 25 ml Q30M PRN IV Hypoglycemia 04/29/18 07:30 05/29/18 07:29 Dextrose (Dextrose 50%) 50 ml Q30M PRN IV Hypoglycemia 04/29/18 07:30 05/29/18 07:29 05/03/18 16:40 Dextrose/Sodium Chloride 1,000 ml @ 50 mls/hr Q20H IV 05/04/18 11:45 06/03/18 11:44 05/04/18 12:23 Dopamine HCl/ Dextrose 250 ml @ 0 mls/hr Q24H IV 05/02/18 04:45 06/01/18 04:44 05/04/18 05:33 Folic Acid (Folate) 1 mg DAILY NG 05/02/18 09:00 06/01/18 08:59 05/04/18 08:47 Heparin Sodium (Porcine) (Heparin 5000 units/ml) 5,000 units EVERY 12 HOURS SUBQ 04/28/18 09:00 05/27/18 20:59 05/02/18 20:55 Insulin Aspart (NovoLOG) EVERY 4 HOURS SUBQ 04/29/18 09:00 05/29/18 08:59 05/04/18 05:32 Iron Sucrose 100 mg/Sodium Chloride 60 ml @ 240 mls/hr BEDTIME IV 04/30/18 21:00 05/04/18 21:14 05/03/18 20:27 Levetiracetam 250 mg/Sodium Chloride 112.5 ml @ 450 mls/hr Q12HR IV 04/27/18 22:00 05/27/18 21:59 05/04/18 10:57 Lorazepam (Ativan 2mg/ml 1ml) 2 mg Q4H PRN IV For Anxiety 04/30/18 09:45 05/07/18 09:44 05/01/18 03:38 Magnesium Sulfate 100 ml @ 100 mls/hr Q1H IVPB 05/04/18 12:00 05/04/18 13:59 05/04/18 12:19 Metoclopramide HCl (Reglan) 10 mg Q6H PRN IVP Nausea & Vomiting 05/04/18 13:00 06/03/18 12:59 Midazolam HCl 100 ml @ 2 mls/hr Q24H IVPB 04/28/18 16:15 05/05/18 16:14 04/30/18 19:55 Midodrine (Pro-Amatine) 10 mg Q8HR NG 05/04/18 14:00 06/03/18 13:59 Multivitamins (Multivitamins) 1 tab DAILY ORAL 05/02/18 09:00 06/01/18 08:59 05/04/18 08:48 Norepinephrine Bitartrate 8 mg/ Dextrose 508 ml @ 0 mls/hr Q24H IV 04/29/18 07:45 05/29/18 07:44 05/02/18 18:57 Ondansetron HCl (Zofran) 4 mg Q6H PRN IVP Nausea & Vomiting 04/27/18 21:30 05/27/18 21:29 Pantoprazole (Protonix) 40 mg EVERY 12 HOURS IVP 04/28/18 09:00 05/25/18 20:59 05/04/18 08:48 Phenytoin 300 mg/ Sodium Chloride 116 ml @ 120 mls/hr QHS IVPB 05/05/18 21:00 05/28/18 08:59 Piperacillin Sod/ Tazobactam Sod 3.375 gm/Sodium Chloride 110 ml @ 27.5 mls/hr Q12H IVPB 04/29/18 00:00 05/06/18 00:00 05/04/18 12:19 Thiamine HCl 100 mg/Sodium Chloride 56 ml @ 112 mls/hr Q24H IVPB 04/29/18 15:00 05/29/18 14:59 05/03/18 16:23 Vasopressin 100 units/Sodium Chloride 100 ml @ 2.4 mls/hr Q24H IV 05/03/18 05:00 06/02/18 04:59 05/03/18 05:18 James Ortiz MD May 04, 2018 14:01
--- NOTE | 2018-05-04 14:03 | Cardiology Report ---
APPROVED REPORT EKG Measurement Heart [id number] Sinus tachycardia Otherwise normal ECG
--- NOTE | 2018-05-04 14:13 | Cardiac Electrophysiology PN ---
Assessment/Plan Assessment/Plan 1. Spetic Shock, likely combination of sepsis as well as hemorrhagic shock 6.2. Stool OB positive S/P two units of blood transfusion. On Levophed and Dopamine as well as broad spectrum IV antibiotic. EF 60% to 65%. 2. Troponin elevation, likely due to septic shock and demand ischemia. 3. Respiratory failure, on the ventilator, under management of Dr. Griffin, still on 100% FiO2.But still not saturating well. 4. Severe anemia, s/p blood transfusion. Stool OB positive 5. Acute renal failure,S/P first HD 05/03/18. 6. Aspiration pneumonia. 7. History of non insulin-dependent diabetes. Further evaluation by Dr. Ocampo. 8. Full code 9. Alcohol abuse DW RN Subjective Subjective On the Vent on 2 pressors Has Right IJ in placement and had first HD yesterday Objective Last 24 Hour Vital Signs Date Time Temp Pulse Resp B/P (MAP) Pulse Ox O2 Delivery O2 Flow Rate FiO2 05/04/18 14:02 71/35 05/04/18 13:11 140 Mechanical Ventilator 100 05/04/18 13:11 140 Mechanical Ventilator 100 05/04/18 13:09 140 30 100 05/04/18 12:00 100 05/04/18 12:00 Mechanical Ventilator 05/04/18 12:00 67 30 71/35 (47) 80 05/04/18 11:00 108 30 84/50 (61) 87 05/04/18 11:00 90/48 05/04/18 10:33 118 30 100 05/04/18 10:00 102 30 92/50 (64) 97 05/04/18 10:00 131/60 05/04/18 09:20 90 30 100 05/04/18 09:00 80/47 05/04/18 09:00 94 30 131/60 (83) 97 05/04/18 08:00 99 05/04/18 08:00 118/60 05/04/18 08:00 Mechanical Ventilator 05/04/18 08:00 100 05/04/18 08:00 98.2 95 30 118/60 (79) 97 05/04/18 07:45 98/48 05/04/18 07:01 94 30 100 Mechanical Ventilator 100 05/04/18 07:00 92/49 05/04/18 07:00 92/49 05/04/18 07:00 95 30 92/49 (63) 97 05/04/18 06:51 94 30 95 Mechanical Ventilator 100 05/04/18 06:50 95 30 100 05/04/18 06:30 100 30 118/61 (80) 97 05/04/18 06:00 100 30 124/64 (84) 97 05/04/18 06:00 124/64 05/04/18 06:00 124/64 05/04/18 05:33 90/50 05/04/18 05:30 94 30 89/49 (62) 95 05/04/18 05:00 98 30 111/53 (72) 99 05/04/18 05:00 111/53 05/04/18 05:00 111/53 05/04/18 04:45 96 30 97/51 (66) 98 05/04/18 04:30 97 29 95/50 (65) 98 05/04/18 04:15 99 30 88/49 (62) 98 05/04/18 04:00 99 05/04/18 04:00 Mechanical Ventilator 05/04/18 04:00 100 05/04/18 04:00 98/57 05/04/18 04:00 98/57 05/04/18 04:00 97.3 103 23 98/57 (71) 84 05/04/18 03:45 101 29 110/57 (74) 93 05/04/18 03:30 98 30 104/52 (69) 95 05/04/18 03:15 98 30 101/52 (68) 95 05/04/18 03:00 98/55 05/04/18 03:00 98/55 05/04/18 03:00 98 30 98/55 (69) 95 05/04/18 02:45 99 30 100/54 (69) 95 05/04/18 02:30 98 30 101/53 (69) 95 05/04/18 02:15 92 30 91/49 (63) 94 05/04/18 02:00 96/51 05/04/18 02:00 96/51 05/04/18 02:00 98 30 96/51 (66) 96 05/04/18 01:45 97 30 105/53 (70) 97 05/04/18 01:30 96 30 113/56 (75) 97 05/04/18 01:15 92 30 115/59 (77) 97 05/04/18 01:00 94/51 05/04/18 01:00 94/51 05/04/18 01:00 85 30 94/51 (65) 100 05/04/18 00:45 81 30 91/54 (66) 97 05/04/18 00:30 82 30 94/51 (65) 98 05/04/18 00:15 81 30 97/48 (64) 98 05/04/18 00:00 97.4 82 30 92/50 (64) 98 05/04/18 00:00 82 05/04/18 00:00 Mechanical Ventilator 05/04/18 00:00 97/48 05/04/18 00:00 97/48 05/04/18 00:00 100 05/03/18 23:45 81 30 96/50 (65) 98 05/03/18 23:30 81 30 99/55 (70) 99 05/03/18 23:15 82 30 101/53 (69) 99 05/03/18 23:00 82 30 95/51 (66) 99 05/03/18 23:00 101/53 05/03/18 23:00 101/53 05/03/18 22:45 81 30 101/53 (69) 100 05/03/18 22:30 81 30 95/53 (67) 100 05/03/18 22:15 81 30 100/54 (69) 100 05/03/18 22:00 100/54 05/03/18 22:00 100/54 05/03/18 22:00 82 30 99/54 (69) 100 05/03/18 21:30 85 30 100 05/03/18 21:30 84 30 98/52 (67) 100 05/03/18 21:00 102/55 05/03/18 21:00 102/55 05/03/18 21:00 86 30 107/55 (72) 100 05/03/18 21:00 86 30 107/55 (72) 100 05/03/18 20:30 92 30 133/66 (88) 100 05/03/18 20:00 100 05/03/18 20:00 137/67 05/03/18 20:00 137/67 05/03/18 20:00 93 05/03/18 20:00 Mechanical Ventilator 05/03/18 20:00 93 30 137/69 (91) 100 05/03/18 19:45 96 30 171/76 (107) 100 05/03/18 19:35 95 30 100 Mechanical Ventilator 100 05/03/18 19:30 97.5 90 30 142/83 (102) 100 05/03/18 19:24 88 30 100 Mechanical Ventilator 100 05/03/18 19:23 88 30 100 05/03/18 19:00 89 32 128/73 (91) 100 05/03/18 19:00 128/73 05/03/18 19:00 128/73 05/03/18 18:00 86 30 99/58 (72) 100 05/03/18 18:00 99/58 05/03/18 18:00 99/58 05/03/18 18:00 86 30 99/58 (72) 100 05/03/18 17:32 76 30 100 05/03/18 17:30 76 24 86/49 (61) 97 05/03/18 17:15 74 30 92/54 (67) 99 05/03/18 17:00 72 30 94/55 (68) 99 05/03/18 17:00 94/55 05/03/18 17:00 94/55 05/03/18 16:45 97.7 68 30 124/65 (84) 98 05/03/18 16:30 69 30 120/68 (85) 98 05/03/18 16:00 69 30 115/66 (82) 99 05/03/18 16:00 69 05/03/18 16:00 Mechanical Ventilator 05/03/18 16:00 115/66 05/03/18 16:00 115/66 05/03/18 15:34 71 30 100 05/03/18 15:30 70 30 120/69 (86) 100 05/03/18 15:00 69 30 109/64 (79) 98 05/03/18 15:00 109/54 05/03/18 15:00 109/64 05/03/18 14:30 71 33 91/54 (66) 83 Intake and Output 05/03/18 05/04/18 19:00 07:00 Intake Total 2213.697 ml 1680.528 ml Output Total 332 ml 100 ml Balance 1881.697 ml 1580.528 ml IV Total 2153.697 ml 1560.528 ml Tube Feeding 10 ml 120 ml Other 50 ml Output Urine Total 332 ml 100 ml # Bowel Movements 1 1 Laboratory Tests Test 05/04/18 03:30 05/04/18 03:50 White Blood Count 14.4 K/UL (4.8-10.8) H Red Blood Count 2.80 M/UL (4.70-6.10) L Hemoglobin 8.8 G/DL (14.2-18.0) L Hematocrit 25.9 % (42.0-52.0) L Mean Corpuscular Volume 92 FL (80-99) Mean Corpuscular Hemoglobin 31.3 PG (27.0-31.0) H Mean Corpuscular Hemoglobin Concent 33.8 G/DL (32.0-36.0) Red Cell Distribution Width 13.8 % (11.6-14.8) Platelet Count 85 K/UL (150-450) L Mean Platelet Volume 13.1 FL (6.5-10.1) H Neutrophils (%) (Auto) % (45.0-75.0) Lymphocytes (%) (Auto) % (20.0-45.0) Monocytes (%) (Auto) % (1.0-10.0) Eosinophils (%) (Auto) % (0.0-3.0) Basophils (%) (Auto) % (0.0-2.0) Sodium Level 144 MMOL/L (136-145) Potassium Level 3.0 MMOL/L (3.5-5.1) L Chloride Level 106 MMOL/L (98-107) Carbon Dioxide Level 30 MMOL/L (21-32) Anion Gap 8 mmol/L (5-15) Blood Urea Nitrogen 58 mg/dL (7-18) H Creatinine 4.4 MG/DL (0.55-1.30) H Estimat Glomerular Filtration Rate 13.9 mL/min (>60) Glucose Level 103 MG/DL (74-106) Uric Acid 5.0 MG/DL (2.6-7.2) Calcium Level 7.7 MG/DL (8.5-10.1) L Phosphorus Level 2.4 MG/DL (2.5-4.9) L Magnesium Level 1.6 MG/DL (1.8-2.4) L Total Bilirubin 0.5 MG/DL (0.2-1.0) Gamma Glutamyl Transpeptidase 143 U/L (5-85) H Aspartate Amino Transf (AST/SGOT) 95 U/L (15-37) H Alanine Aminotransferase (ALT/SGPT) 21 U/L (12-78) Alkaline Phosphatase 123 U/L (46-116) H Ammonia 47 umol/L (11-32) H Pro-B-Type Natriuretic Peptide 08741 pg/mL (0-125) H Total Protein 5.0 G/DL (6.4-8.2) L Albumin 1.3 G/DL (3.4-5.0) L Globulin 3.7 g/dL Albumin/Globulin Ratio 0.4 (1.0-2.7) L Random Vancomycin Level 18.6 ug/mL Microbiology Date/Time Source Procedure Growth Status 05/03/18 07:50 Sputum Gram Stain - Final Resulted 05/03/18 07:50 Sputum Sputum Culture - Preliminary NO GROWTH Resulted Objective HEAD AND NECK: orally intubated. LUNGS: Coarse rhonchi bilaterally. CARDIOVASCULAR: Regular S1 and S2 with no gallop or murmur. ABDOMEN: Soft.Scrotal edema EXTREMITIES: 1+ pitting edema. Earl Moreno MD May 04, 2018 14:13
--- NOTE | 2018-05-04 14:18 | NUR ---
NURSE NOTES: Patient remains in critical condition.Levophed and Dopamine titrate to max as patient VS unstable. Continuous bagging by RT due to constant episode of desaturation despite Fio2 at 100% and Peep 10. O2sat 68% despite bagging. Daughter Asia Cortez made aware of the patient declining stage and worsening condition.Remains full code status. All care provided, mouth care done.HOB elevated, kept on close monitoring
--- NOTE | 2018-05-04 14:22 | Cardiology Report ---
APPROVED REPORT EKG Measurement Heart [id number] Sinus bradycardia with high degree AV block and junctional escape beats. Right bundle branch block Abnormal ECG
--- NOTE | 2018-05-04 14:30 | NUR ---
RESPIRATORY NOTE: Got a call from SHARLA Pena at 1400 that pt is desat again down to 65%. Came and started bagging pt with ambu bag n peep valve +10, saturation still not increase but decrease lower to < 60%.Patient remains in critical condition.Continuous bagging for 30minutes due to constant episode of desaturation despite Fio2 at 100% and Peep 10. Highest O2sat 68% despite bagging. Hyperventilated pt with ambu bag peep 15, saturation finally went up to 93%. Put pt back on AC mode with RR 30- 100%- peep of 10, saturation went back down to 78%, started bagging pt again to get back up to to above 90%, put pt back on vent and increase peep to 15, saturation stayed at 91% with peep 15. Inform SHARLA Pena that I temporarily increase the peep to 15 to keep saturation above 90%, asked SHARLA Pena to inform DR. Griffin to get the order. Will continue to monitor pt.
--- NOTE | 2018-05-04 14:49 | NUR ---
RADIOLOGY DEPT., CHEST X-RAY DONE.-PDYE
--- NOTE | 2018-05-04 14:50 | NUR ---
RESPIRATORY NOTE: Pt got chest X-ray done and started to desat again to 54%, bagging pt with ambubag and peep valve +15, saturation still went down to below 20%, tried different side to get the accurate Pulse Ox reading but the O2 sat was too low to read. Asked RN to get ABG order. Continue to bag the patient in the mean time to try to get the satO2 back up.
--- NOTE | 2018-05-04 14:59 | NUR ---
[employer] FACILITATOR SI: RESP FAILURE ETT/VENT SUPPORT NEW ONSET SEIZURES VS: BP 71/35, P 140, T 98.2, RR 30, SpO2 80 on VENT FiO2 100 WBC 14.4, Hgb 8.8, Hct 25.9, K 3.0, BUN 58, CR 4.4 IS: LEVETIRACETAM 112.5ml IV PHENYTOIN 116ml IVPB PROTONIX 40mg IVP PIPERACILLIN 110ml IVPB ZYLOPRIM 200mg DOPAMINE 250ml IV ACYCLOVIR 275ml IV SODIUM BICARB./D5/NS 1150ml IV D5/NS x1L IV ICU STATUS
--- NOTE | 2018-05-04 15:01 | NUR ---
NURSE NOTES: Despite patient Fio2 and Peep, start desaturation to the 50 and bradycardic on Levophed at 30mcg/kg/mn and Dopamine at 20mcg/kg/mn at 1455. Asystole at 1457 and first code called and successful. Code end at 1501 and family made aware
--- NOTE | 2018-05-04 15:05 | NUR ---
RESPIRATORY NOTE: Code jeremy was called at 1455. Bagged pt with peep valve +15. Successfully resuscitated pt @1501 HR 134, but saturation still low, ER Dr. Kim ordered to decreased Vt to 300ml, keep peep 15, RR 30 due to severe ARDS . Pt still saturated at 69% on vent. Waiting for Dr. Griffin's order.
--- NOTE | 2018-05-04 15:20 | NUR ---
NURSE NOTES: SECOND CODE BLUE CALL AT 1515 PATIENT MILLA CARDIA AND WENT TO [facility] . ALL MEDICAL STAFF AT THE BEDSIDE, ER PHYSICIAN ,RT AND CODE BLUE TEAM.CODE SUCCESSFUL AND HR 134 . FAMILY MADE AWARE AND ARRIVED. UPDATE DONE. WILL CONTINUE PATIENT ON CLOSE MONITORING
--- NOTE | 2018-05-04 15:27 | NUR ---
Social Service Note SW spoke with patient's dgt Asia Cortez [phone] and informed her of patient's declining condition and 2 code blue. Asia states her sister Gissel is in route to the hospital. ER physician available to speak with dgt and update her on patient's condition. Will continue to be available as needed.
--- NOTE | 2018-05-04 15:30 | NUR ---
RESPIRATORY NOTE: Pt was coded again at 1515 while I'm at bedside trying to increasing pt's saturation. Started bagging pt with ambu bag n peep valve +15, CPT was done by RTs and nurses, successfully resuscitated at 1525. Placed pt back on AC mode with the vent setting: AC [id number]-453%FiO2- peep of 15. Will continue to monitor pt closely.
--- NOTE | 2018-05-04 15:55 | NUR ---
SS note Emotional support provided to daughter, Gissel, who is currently at bedside with patient. RNJanine also with family at bedside to provide a clinical update.
--- NOTE | 2018-05-04 16:10 | NUR ---
NURSE NOTES: Adls done,turned and repositioned.Remains in declining stage and critical condition.Max on all pressors support meds and saturated at 78% despite Fio2 100% and peep 15. Family at bedside, update done. Will continue to monitor
[2018-05-04] MEDS: Midazolam/D5W 100ml 100 ML IVPB SCH (16:15)
[2018-05-04] MEDS: Midodrine 10mg tab NG SCH ×2 (16:49→21:45)
[2018-05-04] MEDS: Thiamine HCl 100 MG in NS 55 ML IVPB SCH (16:52)
--- NOTE | 2018-05-04 17:18 | General Progress Note ---
Assessment/Plan Assessment/Plan Assessment and Recs: # Anemia of chronic disease due to underlying chronic medical issues, multifactorial --> in addition due to KELLY, have started iron on 04/30 --> Anemia workup has been reviewed, ferritin 373 --> No evidence of hemolysis is noted, peripheral smear has been reviewed. --> Hgb goal >7. Transfuse prn. --> Given 2 units prbc on 04/25/18, had a reaction, transfusion reaction ordered --> Medications have been reviewed --> gi recs appreciated --> recheck anemia panel 05/07 # Anemia due to alcohol withdrawal/myelosuppresion --> Monitor for withdrawal symptoms --> thimaine, folic acid, ivf, ativan prn ordered --> trend hgb 9 # Leukocytosis/Elevated white blood cell count, unspecified likely related to underlying stress reaction, smoking, or underlying infection, with hemorrhagic shock --> have reviewed peripheral smear and bandemia/neutrophilia noted --> continue antibiotics if they have been started by ID team --> monitor for resolution --> WBC trend: 16-->15-->18-->14-->10-->14 # Thrombocutopenia due to etoh abise --> trend 114k-->85k # Alcohol abuse --> rec cessation # Epileptic seizure, generalized --> as per neuro # Intubated in ICU # Drug abuse # transfse to higher level of care --> remains critically ill The timing of this note does not necessarily reflect the time of the patient was seen. Greatly appreciate consultation! Subjective Constitutional: Denies: no symptoms, chills, diaphoresis, fever, malaise, weakness, other HEENT: Denies: no symptoms, eye pain, blurred vision, tearing, double vision, ear pain, ear discharge, nose pain, nose congestion, throat pain, throat swelling, mouth pain, mouth swelling, other Cardiovascular: Denies: no symptoms, chest pain, edema, irregular heart rate, lightheadedness, palpitations, syncope, other Respiratory: Denies: no symptoms, cough, orthopnea, shortness of breath, SOB with excertion, SOB at rest, sputum, stridor, wheezing, other Gastrointestinal/Abdominal: Denies: no symptoms, abdomen distended, abdominal pain, black stools, tarry stools, blood in stool, constipated, diarrhea, difficulty swallowing, nausea, poor appetite, poor fluid intake, rectal bleeding , vomiting, other Genitourinary: Denies: no symptoms, burning, discharge, frequency, flank pain, hematuria, incontinence, pain, urgency, other Neurologic/Psychiatric: Denies: no symptoms, anxiety, depressed, emotional problems, headache, numbness, paresthesia, pre-existing deficit, seizure, tingling, tremors, weakness, other Endocrine: Denies: no symptoms, excessive sweating, flushing, intolerance to cold, intolerance to heat, increased hunger, increased thirst, increased urine, unexplained weight gain, unexplained weight loss, other Allergies: Coded Allergies: No Known Allergies (Unverified , 04/24/18) Subjective 04/26: awake, comfortable, no acute distress. 04/27: Pt was transferred to ICU, intubated, wbc 16 04/29: seen by bedside, comfortable, wbc 15 04/30: started on iv iron, no fev, chills noted 05/01: On vent, comatose, wbc trending down 05/02: seen by bedside, s/p intubated, cbc reviewed. 05/03: with dialysis line placement, will need hd shortly 05/04: remains critically ill, i saw patient in am, but has since coded twice in icu Objective Last 24 Hour Vital Signs Date Time Temp Pulse Resp B/P (MAP) Pulse Ox O2 Delivery O2 Flow Rate FiO2 05/04/18 17:10 132 30 100 05/04/18 15:30 143 30 100 05/04/18 15:00 59 30 100 05/04/18 14:34 114 30 100 05/04/18 14:02 71/35 05/04/18 13:11 140 Mechanical Ventilator 100 05/04/18 13:11 140 Mechanical Ventilator 100 05/04/18 13:09 140 30 100 05/04/18 12:00 100 05/04/18 12:00 Mechanical Ventilator 05/04/18 12:00 67 30 71/35 (47) 80 05/04/18 11:00 108 30 84/50 (61) 87 05/04/18 11:00 90/48 05/04/18 10:33 118 30 100 05/04/18 10:00 102 30 92/50 (64) 97 05/04/18 10:00 131/60 05/04/18 09:20 90 30 100 05/04/18 09:00 80/47 05/04/18 09:00 94 30 131/60 (83) 97 05/04/18 08:00 99 05/04/18 08:00 118/60 05/04/18 08:00 Mechanical Ventilator 05/04/18 08:00 100 05/04/18 08:00 98.2 95 30 118/60 (79) 97 05/04/18 07:45 98/48 05/04/18 07:01 94 30 100 Mechanical Ventilator 100 05/04/18 07:00 92/49 05/04/18 07:00 92/49 05/04/18 07:00 95 30 92/49 (63) 97 05/04/18 06:51 94 30 95 Mechanical Ventilator 100 05/04/18 06:50 95 30 100 05/04/18 06:30 100 30 118/61 (80) 97 05/04/18 06:00 100 30 124/64 (84) 97 05/04/18 06:00 124/64 05/04/18 06:00 124/64 05/04/18 05:33 90/50 05/04/18 05:30 94 30 89/49 (62) 95 05/04/18 05:00 98 30 111/53 (72) 99 05/04/18 05:00 111/53 05/04/18 05:00 111/53 05/04/18 04:45 96 30 97/51 (66) 98 05/04/18 04:30 97 29 95/50 (65) 98 05/04/18 04:15 99 30 88/49 (62) 98 05/04/18 04:00 99 05/04/18 04:00 Mechanical Ventilator 05/04/18 04:00 100 05/04/18 04:00 98/57 05/04/18 04:00 98/57 05/04/18 04:00 97.3 103 23 98/57 (71) 84 05/04/18 03:45 101 29 110/57 (74) 93 05/04/18 03:30 98 30 104/52 (69) 95 05/04/18 03:15 98 30 101/52 (68) 95 05/04/18 03:00 98/55 05/04/18 03:00 98/55 05/04/18 03:00 98 30 98/55 (69) 95 05/04/18 02:45 99 30 100/54 (69) 95 05/04/18 02:30 98 30 101/53 (69) 95 05/04/18 02:15 92 30 91/49 (63) 94 05/04/18 02:00 96/51 05/04/18 02:00 96/51 05/04/18 02:00 98 30 96/51 (66) 96 05/04/18 01:45 97 30 105/53 (70) 97 05/04/18 01:30 96 30 113/56 (75) 97 05/04/18 01:15 92 30 115/59 (77) 97 05/04/18 01:00 94/51 05/04/18 01:00 94/51 05/04/18 01:00 85 30 94/51 (65) 100 05/04/18 00:45 81 30 91/54 (66) 97 05/04/18 00:30 82 30 94/51 (65) 98 05/04/18 00:15 81 30 97/48 (64) 98 05/04/18 00:00 97.4 82 30 92/50 (64) 98 05/04/18 00:00 82 05/04/18 00:00 Mechanical Ventilator 05/04/18 00:00 97/48 05/04/18 00:00 97/48 05/04/18 00:00 100 05/03/18 23:45 81 30 96/50 (65) 98 05/03/18 23:30 81 30 99/55 (70) 99 05/03/18 23:15 82 30 101/53 (69) 99 05/03/18 23:00 82 30 95/51 (66) 99 05/03/18 23:00 101/53 05/03/18 23:00 101/53 05/03/18 22:45 81 30 101/53 (69) 100 05/03/18 22:30 81 30 95/53 (67) 100 05/03/18 22:15 81 30 100/54 (69) 100 05/03/18 22:00 100/54 05/03/18 22:00 100/54 05/03/18 22:00 82 30 99/54 (69) 100 05/03/18 21:30 85 30 100 05/03/18 21:30 84 30 98/52 (67) 100 05/03/18 21:00 102/55 05/03/18 21:00 102/55 05/03/18 21:00 86 30 107/55 (72) 100 05/03/18 21:00 86 30 107/55 (72) 100 05/03/18 20:30 92 30 133/66 (88) 100 05/03/18 20:00 100 05/03/18 20:00 137/67 05/03/18 20:00 137/67 05/03/18 20:00 93 05/03/18 20:00 Mechanical Ventilator 05/03/18 20:00 93 30 137/69 (91) 100 05/03/18 19:45 96 30 171/76 (107) 100 05/03/18 19:35 95 30 100 Mechanical Ventilator 100 05/03/18 19:30 97.5 90 30 142/83 (102) 100 05/03/18 19:24 88 30 100 Mechanical Ventilator 100 05/03/18 19:23 88 30 100 05/03/18 19:00 89 32 128/73 (91) 100 05/03/18 19:00 128/73 05/03/18 19:00 128/73 05/03/18 18:00 86 30 99/58 (72) 100 05/03/18 18:00 99/58 05/03/18 18:00 99/58 05/03/18 18:00 86 30 99/58 (72) 100 05/03/18 17:32 76 30 100 05/03/18 17:30 76 24 86/49 (61) 97 Intake and Output 05/03/18 05/04/18 18:59 06:59 Intake Total 2181.489 ml 1797.834 ml Output Total 337 ml 90 ml Balance 1844.489 ml 1707.834 ml IV Total 2131.489 ml 1677.834 ml Tube Feeding 120 ml Other 50 ml Output Urine Total 337 ml 90 ml # Bowel Movements 1 1 Laboratory Tests 05/04/18 03:30: White Blood Count 14.4H, Red Blood Count 2.80L, Hemoglobin 8.8L, Hematocrit 25.9L, Mean Corpuscular Volume 92, Mean Corpuscular Hemoglobin 31.3H, Mean Corpuscular Hemoglobin Concent 33.8, Red Cell Distribution Width 13.8, Platelet Count 85L, Mean Platelet Volume 13.1H, Neutrophils (%) (Auto) , Lymphocytes (%) (Auto) , Monocytes (%) (Auto) , Eosinophils (%) (Auto) , Basophils (%) (Auto) , Sodium Level 144, Potassium Level 3.0L, Chloride Level 106, Carbon Dioxide Level 30, Anion Gap 8, Blood Urea Nitrogen 58H, Creatinine 4.4H, Estimat Glomerular Filtration Rate 13.9, Glucose Level 103, Uric Acid 5.0, Calcium Level 7.7L, Phosphorus Level 2.4L, Magnesium Level 1.6L, Total Bilirubin 0.5, Gamma Glutamyl Transpeptidase 143H, Aspartate Amino Transf (AST/SGOT) 95H, Alanine Aminotransferase (ALT/SGPT) 21, Alkaline Phosphatase 123H, Ammonia 47H, Pro-B-Type Natriuretic Peptide [id number], Total Protein 5.0L, Albumin 1.3L, Globulin 3.7, Albumin/Globulin Ratio 0.4L 05/04/18 03:50: Random Vancomycin Level 18.6 05/04/18 14:55: Arterial Blood pH 7.256L, Arterial Blood Partial Pressure CO2 54.3H, Arterial Blood Partial Pressure O2 < 45.3*L, Arterial Blood HCO3 23.6, Arterial Blood Oxygen Saturation 20.8*L, Arterial Blood Base Excess -3.5L, Aaron Test Positive 05/04/18 16:45: Arterial Blood pH 7.220*L, Arterial Blood Partial Pressure CO2 52.1H, Arterial Blood Partial Pressure O2 49.7*L, Arterial Blood HCO3 20.8L, Arterial Blood Oxygen Saturation 79.3*L, Arterial Blood Base Excess -6.9L, Aaron Test Positive Height (Feet): 5 Height (Inches): 10.00 Weight (Pounds): 170 Objective PE: General Appearance: obtunded, in icu Head: normocephalic EENT: PERRL/EOMI, normal ENT inspection Neck: supple Respiratory: normal breath sounds, no respiratory distress, intubated++ Cardiovascular: normal rate Gastrointestinal: normal inspection, non tender, soft, normal bowel sounds, non -distended Rectal: deferred Genitourinary: deferred Musculoskeletal: normal inspection, back normal Mirza Greenfield MD May 04, 2018 17:18
--- NOTE | 2018-05-04 17:21 | NUR ---
NURSE NOTES: Seen by Dr Caicedo,will follow up with new orders
--- NOTE | 2018-05-04 17:40 | NUR ---
NURSE NOTES: Relayed ABG to Dr Phillip with new order vent setting, RT Amanda made aware VT 500 Peep 5 and maintained 1:1 ratio , keep on pressure control. ABG in 2 hours after vent setting. Addendum: 05/04/18 at 1827 by Becky Balbuena RN PEEP 18
--- NOTE | 2018-05-04 17:54 | NUR ---
RESPIRATORY NOTE: Changed vent setting to pressure support peep of 18, to achieve ratio 1:1, and Vt range 450-550ml per Dr. Phillip. Placed pt on AC PC-30- 100% FiO2- peep of 18, Pi 22cm H2O to achieve the ratio 1:1 and Vt in the range 450-550ml. Pt's saturation is still at 78%, no improvement yet, HR 130bpm, RR 30bpm. ABG in 2 hours post changing setting. Will continue to monitor pt.
--- NOTE | 2018-05-04 18:24 | NUR ---
NURSE NOTES: ADLs done,turned and repositioned.Mouth care done.Kept clean and dry. Remains on max pressors attempts to decrease Levophed from 30mcg/kg/n to 28 and Dopamine from 20mcg/kg/mn to 18 and patient BP dropped to 71,place back on max. Saturation 90 at this time on 100% Fio2 and Peep 18.Kept on close monitoring
--- NOTE | 2018-05-04 18:27 | Diagnostic Imaging Report ---
Indication: Dyspnea Technique: One view of the chest Comparison: 05/02/2018 Findings: Overlying defibrillator paddles are again demonstrated. There is increasing dense consolidation of the right lung. Diffuse interstitial and airspace disease of the left lung appears similar to the prior exam. Tubes and lines remain in stable satisfactory positions. Impression: Worsening right lung parenchymal disease, over 2 days. Other stable findings as described
--- NOTE | 2018-05-04 19:02 | Diagnostic Imaging Report ---
History: SOB Exam: XR CXR 1 VIEW at 18:07 Comparison: 05/04/2018 at 14:35 FINDINGS: Endotracheal tube, right IJ line, right PICC and nasogastric tubes again seen. Percutaneous pacing/to fibrillator pads. No significant interval change in appearance of the chest. Areas of dense consolidation within the right upper lobe with bilateral patchy ill-defined perihilar airspace opacities and possible right pleural effusion. IMPRESSION: No significant interval change in appearance of the chest.
--- NOTE | 2018-05-04 19:12 | NUR ---
RESPIRATORY NOTE: Received pt on AC 30, Pressure Control 22, 100%, PEEP +18. Pt intubated w/ ETT 7.5 @ 26cm lipline, secured by anchorfast. Pt obtunded/flat effect. B/S lelo.rales/diminished, nonproductive cough sxn little to no secretions. occasional thick/thin, clear secretions. Vent plugged into red outlet, ambubag at bedside. Pt stable, in no apparent distress at this time. Will continue to monitor pt.
--- NOTE | 2018-05-04 19:15 | NUR ---
HAND-OFF: Report given to SHARLA Ahmadi.
--- NOTE | 2018-05-04 19:16 | NUR ---
NURSE NOTES: Received endorsement from SHARLA Pena. No eye opening, no pupil reaction to light. Extremities flaccid. Generalized edema. S/P code in the morning X2. Orally intubated 7.5/ 26 cm. AC 30, Pressure control Vt 450-550, PEEP 18, fio2 100%. Right IJ zina. TRACIE PICC line running Dopamine 20 mcg/kg/min, Levophed 30mcg/min. D5 1/2NS 50ml/hr. Right Nare NGT patent and intact. Placement rechecked per auscultation. Feeding on hold at this time. Meade cath in place. Head of bed at 30 degrees. Bed locked and in lowest position. On seizure precautions.
[2018-05-04] MEDS: Dyna-Hex 2% Top Sol 2oz TOPIC SCH (20:10)
[2018-05-04] MEDS: Iron Sucrose 100 MG in NS 55 ML IV SCH (20:10)
--- NOTE | 2018-05-04 20:30 | NUR ---
NURSE NOTES: ABG and chest xray results relayed to Dr. Phillip. No new order at this time.
--- NOTE | 2018-05-04 21:57 | Pulmonolgy Critical Care Note ---
Critical Care - Asmt/Plan Assessment/Plan: Pulmonary CCM Progress Note Assessment/Plan Problems: (1) ARDS (adult respiratory distress syndrome) (2) Shock (3) Aspiration pneumonia (4) Bilateral pneumonia (5) Hypoxemia (6) Renal failure (ARF), acute on chronic (7) Diabetic nephropathy (8) Epileptic seizure, generalized (9) Marijuana abuse (10) Alcohol abuse (11) Alcohol withdrawal (12) Anemia Plan: -Ventilatory support/settings reviewed/lung protective ventilation - PCV, PEEP 18, ABG/CXR -Versed gtt held, per neuro check levels before formal brain eval -Keppra/Dilantin, F/U neuro recs -Vaso 0.04, Titrate NE and DA as able to keep MAP > 60 -Consider D/C IVF given improved gas exchange, oliguria and plan for HD [place] [facility] plan for [place] per renal -Abx (Zosyn, Vanco) & Acyclovir per ID, F/U Cx's, may need bronch -RTC and PRN DUOnebs -Monitor gas exchange -Resume TF's -Monitor BS, SQ insulin, F/U ENDO recs -Monitor volumes, F/U renal recs -MVI/thiamine/Folate -F/U GI and heme recs Re: anemia -DVT Px: Hep SQ -Keep in ICU, transfer to [facility] when/if clinically stable -FC, prognosis poor CCT 60 D/W Family D/W CHAIN PULLER and RT Time Spent (Minutes): 60 Critical Care - Objective Last 24 Hour Vital Signs Date Time Temp Pulse Resp B/P (MAP) Pulse Ox O2 Delivery O2 Flow Rate FiO2 05/03/18 12:00 71 30 102/56 (71) 97 05/03/18 12:00 73 05/03/18 12:00 Mechanical Ventilator 05/03/18 12:00 100 05/03/18 11:00 72 30 114/63 (80) 97 05/03/18 11:00 114/63 05/03/18 11:00 114/63 05/03/18 10:51 72 30 70 05/03/18 10:30 72 30 113/66 (82) 93 05/03/18 10:00 112/66 05/03/18 10:00 112/66 05/03/18 10:00 71 30 112/66 (81) 100 05/03/18 09:30 71 30 108/62 (77) 95 05/03/18 09:00 103/63 05/03/18 09:00 103/63 05/03/18 09:00 72 30 103/63 (76) 95 05/03/18 08:54 71 05/03/18 08:50 72 30 70 05/03/18 08:30 73 30 121/54 (76) 95 05/03/18 08:15 72 30 112/64 (80) 97 05/03/18 08:00 70 05/03/18 08:00 71 30 97/54 (68) 98 05/03/18 08:00 71 30 97/54 (68) 98 05/03/18 08:00 97/54 05/03/18 08:00 97/54 05/03/18 08:00 Mechanical Ventilator 05/03/18 07:45 71 30 89/53 (65) 97 05/03/18 07:30 97.8 70 28 86/53 (64) 91 05/03/18 07:30 86/53 05/03/18 07:27 70 30 70 05/03/18 07:00 72 30 98/68 (78) 95 05/03/18 06:45 73 30 117/70 (86) 98 05/03/18 06:30 72 30 110/68 (82) 98 05/03/18 06:22 70 30 86/56 (66) 95 05/03/18 06:20 70 30 89/57 (68) 97 05/03/18 06:15 70 30 89/57 (68) 96 05/03/18 06:00 71 30 97/60 (72) 98 05/03/18 05:45 71 30 95/62 (73) 97 05/03/18 05:30 70 30 96/61 (73) 98 05/03/18 05:15 71 30 98/60 (73) 97 05/03/18 05:12 71 30 70 05/03/18 05:00 72 30 107/65 (79) 95 05/03/18 04:45 73 30 105/65 (78) 92 05/03/18 04:30 73 30 91 05/03/18 04:15 74 30 100/62 (75) 92 05/03/18 04:00 98.1 74 30 93/56 (68) 92 05/03/18 04:00 Mechanical Ventilator 05/03/18 04:00 75 05/03/18 04:00 70 05/03/18 03:45 75 32 102/62 (75) 100 05/03/18 03:30 73 29 97/59 (72) 99 05/03/18 03:15 74 30 102/65 (77) 100 05/03/18 03:00 74 30 96/61 (73) 100 05/03/18 02:49 74 30 70 05/03/18 02:45 74 30 98/65 (76) 100 05/03/18 02:30 74 30 98/62 (74) 100 05/03/18 02:15 74 30 96/61 (73) 100 05/03/18 02:00 76 30 116/71 (86) 100 05/03/18 01:45 76 30 117/71 (86) 100 05/03/18 01:30 76 30 115/69 (84) 100 05/03/18 01:17 75 30 78/52 (61) 100 05/03/18 01:15 75 30 79/52 (61) 100 05/03/18 01:00 98.1 76 30 105/68 (80) 100 05/03/18 00:45 76 30 101/66 (78) 100 05/03/18 00:39 76 30 80 05/03/18 00:30 77 30 97/63 (74) 100 05/03/18 00:15 77 30 98/65 (76) 100 05/03/18 00:00 Mechanical Ventilator 05/03/18 00:00 77 30 101/66 (78) 100 05/03/18 00:00 85 05/03/18 00:00 76 05/02/18 23:45 78 30 124/76 (92) 100 05/02/18 23:30 84 30 158/88 (111) 100 05/02/18 23:15 84 30 157/87 (110) 100 05/02/18 23:00 84 30 155/84 (107) 100 05/02/18 22:45 84 30 153/89 (110) 100 05/02/18 22:37 84 30 85 05/02/18 22:30 84 30 152/87 (108) 100 05/02/18 22:15 84 30 154/87 (109) 100 05/02/18 22:00 84 30 153/86 (108) 100 05/02/18 21:45 85 30 152/89 (110) 100 05/02/18 21:30 84 30 139/82 (101) 98 05/02/18 21:15 84 30 127/80 (96) 100 05/02/18 21:00 84 30 126/77 (93) 100 05/02/18 20:45 87 30 134/80 (98) 100 05/02/18 20:32 89 30 90 05/02/18 20:30 89 29 141/81 (101) 100 05/02/18 20:15 92 30 165/89 (114) 100 05/02/18 20:00 90 30 163/90 (114) 100 05/02/18 20:00 Mechanical Ventilator 05/02/18 20:00 90 05/02/18 20:00 100 05/02/18 19:45 89 30 154/87 (109) 100 05/02/18 19:38 91 30 164/92 (116) 100 05/02/18 19:30 90 30 166/92 (116) 100 05/02/18 19:15 97.9 90 30 164/90 (114) 100 05/02/18 19:08 90 30 90 05/02/18 19:00 89 30 166/94 (118) 100 05/02/18 19:00 166/94 05/02/18 18:57 166/94 05/02/18 18:45 165/88 05/02/18 18:30 167/80 05/02/18 18:16 173/81 05/02/18 18:00 173/81 05/02/18 18:00 173/81 05/02/18 17:25 92 30 100 05/02/18 17:00 147/77 05/02/18 17:00 147/77 05/02/18 16:15 92 30 143/77 (99) 99 05/02/18 16:00 93 30 142/73 (96) 100 05/02/18 16:00 Mechanical Ventilator 05/02/18 16:00 142/73 05/02/18 16:00 142/73 05/02/18 16:00 100 05/02/18 16:00 102 05/02/18 15:45 95 30 138/77 (97) 100 05/02/18 15:30 157/81 05/02/18 15:30 157/81 05/02/18 15:30 104 30 157/81 (106) 100 05/02/18 15:15 104 30 160/80 (106) 100 05/02/18 15:00 105 30 161/81 (107) 100 05/02/18 15:00 98 30 100 05/02/18 15:00 161/81 05/02/18 15:00 161/81 05/02/18 14:45 107 30 158/82 (107) 98 05/02/18 14:30 109 30 158/79 (105) 100 05/02/18 14:30 158/79 05/02/18 14:15 111 30 165/88 (113) 99 05/02/18 14:00 165/68 05/02/18 14:00 165/68 05/02/18 14:00 100 30 144/64 (90) 97 05/02/18 13:45 110 30 168/83 (111) 98 05/02/18 13:36 108 30 99 Mechanical Ventilator 100 05/02/18 13:30 109 30 174/89 (117) 100 05/02/18 13:26 112 30 100 Mechanical Ventilator 15.0 100 05/02/18 13:25 112 30 100 05/02/18 13:15 115 30 149/80 (103) 95 05/02/18 13:00 120 30 154/77 (102) 94 05/02/18 13:00 154/77 05/02/18 13:00 154/77 05/02/18 12:45 121 30 148/74 (98) 96 Status: obtunded - non responsive on vent no gag Condition: critical HEENT: atraumatic, normocephalic Lungs: rales Heart: HR/BP unstable Abdomen: soft, non-tender, active bowel sounds Extremities: edema - 2+, cyanosis - no, clubbing - no Accucheck: 76 Blood Sugars: BS controlled Critical Care - Subjective ROS Limited/Unobtainable: Yes ICU Day: 8 Intubation Day: 8 Interval Events: Gas exchange worsening No sig secretions PEEP 18, FiO2 100 Weaning pressors, s/p HD Condition: critical IV Access: PICC EKG Rhythm: Sinus Rhythm FI02: 100 Vent Support Breath Rate: 30 Vent Support Mode: AC Vent Tidal Volume: 550 Sputum Amount: Scant PEEP: 10.0 PIP: 38 Secretions: scant Fluids: [id number] Drips: Vaso 0.04, DA 2, NE 4 Tube Feeding Amount: 0 I&O: Intake and Output 05/02/18 05/03/18 18:59 06:59 Intake Total 2349.957 ml 1331.495 ml Output Total 180 ml 125 ml Balance 2169.957 ml 1206.495 ml Free Water 60 ml IV Total 2289.957 ml 1331.495 ml Tube Feeding 0 ml 0 ml Output Urine Total 180 ml 125 ml # Bowel Movements 2 Subjective: KALI CXR: Laboratory Tests Test 05/02/18 12:45 05/02/18 18:40 05/03/18 02:00 05/03/18 08:30 Arterial Blood pH 7.172 (7.350-7.450) 7.260 (7.350-7.450) 7.350 (7.350-7.450) Arterial Blood Partial Pressure CO2 55.8 mmHg (35.0-45.0) *H 42.2 mmHg (35.0-45.0) 44.4 mmHg (35.0-45.0) Arterial Blood Partial Pressure O2 51.2 mmHg (75.0-100.0) L 65.8 mmHg (75.0-100.0) L 37.9 mmHg (75.0-100.0) Arterial Blood HCO3 20.0 mmol/L (22.0-26.0) L 18.5 mmol/L (22.0-26.0) L 24.0 mmol/L (22.0-26.0) Arterial Blood Oxygen Saturation 85.2 % (95-100) *L % (95-100) 75.4 % (95-100) *L Arterial Blood Base Excess -8.5 (-2-2) L -8.2 (-2-2) L -1.6 (-2-2) Aaron Test Positive Positive Positive Stool Occult Blood Positive (NEGATIVE) White Blood Count 10.6 K/UL (4.8-10.8) Red Blood Count 2.57 M/UL (4.70-6.10) L Hemoglobin 8.2 G/DL (14.2-18.0) L Hematocrit 23.6 % (42.0-52.0) L Mean Corpuscular Volume 92 FL (80-99) Mean Corpuscular Hemoglobin 31.8 PG (27.0-31.0) H Mean Corpuscular Hemoglobin Concent 34.6 G/DL (32.0-36.0) Red Cell Distribution Width 13.0 % (11.6-14.8) Platelet Count 83 K/UL (150-450) L Mean Platelet Volume 7.0 FL (6.5-10.1) Neutrophils (%) (Auto) % (45.0-75.0) Lymphocytes (%) (Auto) % (20.0-45.0) Monocytes (%) (Auto) % (1.0-10.0) Eosinophils (%) (Auto) % (0.0-3.0) Basophils (%) (Auto) % (0.0-2.0) Differential Total Cells Counted 100 Neutrophils % (Manual) 89 % (45-75) H Lymphocytes % (Manual) 5 % (20-45) L Monocytes % (Manual) 4 % (1-10) Eosinophils % (Manual) 2 % (0-3) Basophils % (Manual) 0 % (0-2) Band Neutrophils 0 % (0-8) Platelet Estimate Decreased L Platelet Morphology Normal Sodium Level 142 MMOL/L (136-145) Potassium Level 3.1 MMOL/L (3.5-5.1) L Chloride Level 107 MMOL/L (98-107) Carbon Dioxide Level 24 MMOL/L (21-32) Anion Gap 11 mmol/L (5-15) Blood Urea Nitrogen 79 mg/dL (7-18) H Creatinine 5.2 MG/DL (0.55-1.30) H Estimat Glomerular Filtration Rate 11.5 mL/min (>60) Glucose Level 154 MG/DL (74-106) #H Calcium Level 7.7 MG/DL (8.5-10.1) L Total Bilirubin 0.7 MG/DL (0.2-1.0) Aspartate Amino Transf (AST/SGOT) 89 U/L (15-37) H Alanine Aminotransferase (ALT/SGPT) 20 U/L (12-78) Alkaline Phosphatase 103 U/L (46-116) C-Reactive Protein, Quantitative 27.2 mg/dL (0.00-0.90) H Total Protein 5.0 G/DL (6.4-8.2) L Albumin 1.5 G/DL (3.4-5.0) L Globulin 3.5 g/dL Albumin/Globulin Ratio 0.4 (1.0-2.7) L Hepatitis A IgM Antibody Pending Hepatitis B Surface Antigen Pending Hepatitis B Core IgM Antibody Pending Hepatitis C Antibody Pending Test 05/03/18 10:21 Arterial Blood pH 7.350 (7.350-7.450) Arterial Blood Partial Pressure CO2 43.3 mmHg (35.0-45.0) Arterial Blood Partial Pressure O2 < 45.3 mmHg (75.0-100.0) Arterial Blood HCO3 23.4 mmol/L (22.0-26.0) Arterial Blood Oxygen Saturation 71.6 % (95-100) *L Arterial Blood Base Excess -2.2 (-2-2) L Aaron Test Positive ET-Tube: 7.5 ET Position: 26 Labs: Laboratory Tests Test 05/02/18 12:45 05/02/18 18:40 05/03/18 02:00 05/03/18 08:30 Arterial Blood pH 7.172 (7.350-7.450) 7.260 (7.350-7.450) 7.350 (7.350-7.450) Arterial Blood Partial Pressure CO2 55.8 mmHg (35.0-45.0) *H 42.2 mmHg (35.0-45.0) 44.4 mmHg (35.0-45.0) Arterial Blood Partial Pressure O2 51.2 mmHg (75.0-100.0) L 65.8 mmHg (75.0-100.0) L 37.9 mmHg (75.0-100.0) Arterial Blood HCO3 20.0 mmol/L (22.0-26.0) L 18.5 mmol/L (22.0-26.0) L 24.0 mmol/L (22.0-26.0) Arterial Blood Oxygen Saturation 85.2 % (95-100) *L % (95-100) 75.4 % (95-100) *L Arterial Blood Base Excess -8.5 (-2-2) L -8.2 (-2-2) L -1.6 (-2-2) Aaron Test Positive Positive Positive Stool Occult Blood Positive (NEGATIVE) White Blood Count 10.6 K/UL (4.8-10.8) Red Blood Count 2.57 M/UL (4.70-6.10) L Hemoglobin 8.2 G/DL (14.2-18.0) L Hematocrit 23.6 % (42.0-52.0) L Mean Corpuscular Volume 92 FL (80-99) Mean Corpuscular Hemoglobin 31.8 PG (27.0-31.0) H Mean Corpuscular Hemoglobin Concent 34.6 G/DL (32.0-36.0) Red Cell Distribution Width 13.0 % (11.6-14.8) Platelet Count 83 K/UL (150-450) L Mean Platelet Volume 7.0 FL (6.5-10.1) Neutrophils (%) (Auto) % (45.0-75.0) Lymphocytes (%) (Auto) % (20.0-45.0) Monocytes (%) (Auto) % (1.0-10.0) Eosinophils (%) (Auto) % (0.0-3.0) Basophils (%) (Auto) % (0.0-2.0) Differential Total Cells Counted 100 Neutrophils % (Manual) 89 % (45-75) H Lymphocytes % (Manual) 5 % (20-45) L Monocytes % (Manual) 4 % (1-10) Eosinophils % (Manual) 2 % (0-3) Basophils % (Manual) 0 % (0-2) Band Neutrophils 0 % (0-8) Platelet Estimate Decreased L Platelet Morphology Normal Sodium Level 142 MMOL/L (136-145) Potassium Level 3.1 MMOL/L (3.5-5.1) L Chloride Level 107 MMOL/L (98-107) Carbon Dioxide Level 24 MMOL/L (21-32) Anion Gap 11 mmol/L (5-15) Blood Urea Nitrogen 79 mg/dL (7-18) H Creatinine 5.2 MG/DL (0.55-1.30) H Estimat Glomerular Filtration Rate 11.5 mL/min (>60) Glucose Level 154 MG/DL (74-106) #H Calcium Level 7.7 MG/DL (8.5-10.1) L Total Bilirubin 0.7 MG/DL (0.2-1.0) Aspartate Amino Transf (AST/SGOT) 89 U/L (15-37) H Alanine Aminotransferase (ALT/SGPT) 20 U/L (12-78) Alkaline Phosphatase 103 U/L (46-116) C-Reactive Protein, Quantitative 27.2 mg/dL (0.00-0.90) H Total Protein 5.0 G/DL (6.4-8.2) L Albumin 1.5 G/DL (3.4-5.0) L Globulin 3.5 g/dL Albumin/Globulin Ratio 0.4 (1.0-2.7) L Hepatitis A IgM Antibody Pending Hepatitis B Surface Antigen Pending Hepatitis B Core IgM Antibody Pending Hepatitis C Antibody Pending Test 05/03/18 10:21 Arterial Blood pH 7.350 (7.350-7.450) Arterial Blood Partial Pressure CO2 43.3 mmHg (35.0-45.0) Arterial Blood Partial Pressure O2 < 45.3 mmHg (75.0-100.0) Arterial Blood HCO3 23.4 mmol/L (22.0-26.0) Arterial Blood Oxygen Saturation 71.6 % (95-100) *L Arterial Blood Base Excess -2.2 (-2-2) L Aaron Test Positive Critical Care - Objective Last 24 Hour Vital Signs Date Time Temp Pulse Resp B/P (MAP) Pulse Ox O2 Delivery O2 Flow Rate FiO2 05/04/18 21:04 128 30 100 05/04/18 19:37 91/48 05/04/18 19:10 Mechanical Ventilator 100 05/04/18 19:10 128 30 100 05/04/18 19:10 Mechanical Ventilator 100 05/04/18 18:00 129 30 137/74 (95) 77 05/04/18 17:54 130 30 100 05/04/18 17:31 104/63 05/04/18 17:30 130 30 142/76 (98) 78 05/04/18 17:10 132 30 100 05/04/18 17:00 132 30 129/69 (89) 78 05/04/18 16:30 132 30 104/57 (73) 76 05/04/18 16:00 130 05/04/18 16:00 131 30 103/59 (74) 77 05/04/18 16:00 Mechanical Ventilator 05/04/18 16:00 98.0 131 30 103/59 (74) 77 05/04/18 16:00 100 05/04/18 15:30 143 30 100 05/04/18 15:30 133 30 147/81 (103) 82 05/04/18 15:00 108 30 111/76 (88) 80 05/04/18 15:00 108 31 111/76 (88) 47 05/04/18 15:00 59 30 100 05/04/18 14:34 114 30 100 05/04/18 14:02 71/35 05/04/18 14:00 127 30 96/51 (66) 80 05/04/18 13:11 140 Mechanical Ventilator 100 05/04/18 13:11 140 Mechanical Ventilator 100 05/04/18 13:09 140 30 100 05/04/18 13:00 97.8 135 30 81/45 (57) 97 05/04/18 12:00 88 05/04/18 12:00 100 05/04/18 12:00 Mechanical Ventilator 05/04/18 12:00 67 30 71/35 (47) 80 05/04/18 11:00 108 30 84/50 (61) 87 05/04/18 11:00 90/48 05/04/18 10:33 118 30 100 05/04/18 10:00 102 30 92/50 (64) 97 05/04/18 10:00 131/60 05/04/18 09:20 90 30 100 05/04/18 09:00 80/47 05/04/18 09:00 94 30 131/60 (83) 97 05/04/18 08:00 99 05/04/18 08:00 118/60 05/04/18 08:00 Mechanical Ventilator 05/04/18 08:00 100 05/04/18 08:00 98.2 95 30 118/60 (79) 97 05/04/18 07:45 98/48 05/04/18 07:01 94 30 100 Mechanical Ventilator 100 05/04/18 07:00 92/49 05/04/18 07:00 92/49 05/04/18 07:00 95 30 92/49 (63) 97 05/04/18 06:51 94 30 95 Mechanical Ventilator 100 05/04/18 06:50 95 30 100 05/04/18 06:30 100 30 118/61 (80) 97 05/04/18 06:00 100 30 124/64 (84) 97 05/04/18 06:00 124/64 05/04/18 06:00 124/64 05/04/18 05:33 90/50 05/04/18 05:30 94 30 89/49 (62) 95 05/04/18 05:00 98 30 111/53 (72) 99 05/04/18 05:00 111/53 05/04/18 05:00 111/53 05/04/18 04:45 96 30 97/51 (66) 98 05/04/18 04:30 97 29 95/50 (65) 98 05/04/18 04:15 99 30 88/49 (62) 98 05/04/18 04:00 99 05/04/18 04:00 Mechanical Ventilator 05/04/18 04:00 100 05/04/18 04:00 98/57 05/04/18 04:00 98/57 05/04/18 04:00 97.3 103 23 98/57 (71) 84 05/04/18 03:45 101 29 110/57 (74) 93 05/04/18 03:30 98 30 104/52 (69) 95 05/04/18 03:15 98 30 101/52 (68) 95 05/04/18 03:00 98/55 05/04/18 03:00 98/55 05/04/18 03:00 98 30 98/55 (69) 95 05/04/18 02:45 99 30 100/54 (69) 95 05/04/18 02:30 98 30 101/53 (69) 95 05/04/18 02:15 92 30 91/49 (63) 94 05/04/18 02:00 96/51 05/04/18 02:00 96/51 05/04/18 02:00 98 30 96/51 (66) 96 05/04/18 01:45 97 30 105/53 (70) 97 05/04/18 01:30 96 30 113/56 (75) 97 05/04/18 01:15 92 30 115/59 (77) 97 05/04/18 01:00 94/51 05/04/18 01:00 94/51 05/04/18 01:00 85 30 94/51 (65) 100 05/04/18 00:45 81 30 91/54 (66) 97 05/04/18 00:30 82 30 94/51 (65) 98 05/04/18 00:15 81 30 97/48 (64) 98 05/04/18 00:00 97.4 82 30 92/50 (64) 98 05/04/18 00:00 82 05/04/18 00:00 Mechanical Ventilator 05/04/18 00:00 97/48 05/04/18 00:00 97/48 05/04/18 00:00 100 05/03/18 23:45 81 30 96/50 (65) 98 05/03/18 23:30 81 30 99/55 (70) 99 05/03/18 23:15 82 30 101/53 (69) 99 05/03/18 23:00 82 30 95/51 (66) 99 05/03/18 23:00 101/53 05/03/18 23:00 101/53 05/03/18 22:45 81 30 101/53 (69) 100 05/03/18 22:30 81 30 95/53 (67) 100 05/03/18 22:15 81 30 100/54 (69) 100 05/03/18 22:00 100/54 05/03/18 22:00 100/54 05/03/18 22:00 82 30 99/54 (69) 100 Micro: Microbiology Date/Time Source Procedure Growth Status 05/03/18 07:50 Sputum Gram Stain - Final Resulted 05/03/18 07:50 Sputum Sputum Culture - Preliminary NO GROWTH Resulted Accucheck: 156 Critical Care - Subjective ROS Limited/Unobtainable: No FI02: 100 Vent Support Breath Rate: 30 Vent Support Mode: AC Vent Tidal Volume: 550 Sputum Amount: None PEEP: 18.0 PIP: 41 Tube Feeding Amount: 10 I&O: Intake and Output 05/03/18 05/04/18 19:00 07:00 Intake Total 2213.697 ml 1788.148 ml Output Total 332 ml 100 ml Balance 1881.697 ml 1688.148 ml IV Total 2153.697 ml 1668.148 ml Tube Feeding 10 ml 120 ml Other 50 ml Output Urine Total 332 ml 100 ml # Bowel Movements 1 1 ET-Tube: 7.5 ET Position: 26 Yariel Phillip MD May 04, 2018 21:57
--- NOTE | 2018-05-04 22:00 | NUR ---
NURSE NOTES: Patient's family at the bedside. Updated of current condition.
--- NOTE | 2018-05-04 22:01 | General Progress Note ---
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 - Generalized idiopathic epilepsy and epileptic syndromes, not intractable, without status epilepticus SNOMED: 67262698 Status: deteriorating Assessment/Plan according to neurologist severe anoxic encephalopathy post cardiopulmonary arrest intubated resp failure ARDS due to aspiration pna seizure comatose need to do palliative care and bioethics consult Subjective ROS Limited/Unobtainable: Yes Allergies: Coded Allergies: No Known Allergies (Unverified , 04/24/18) Objective Last 24 Hour Vital Signs Date Time Temp Pulse Resp B/P (MAP) Pulse Ox O2 Delivery O2 Flow Rate FiO2 05/04/18 21:04 128 30 100 05/04/18 19:37 91/48 05/04/18 19:10 Mechanical Ventilator 100 05/04/18 19:10 128 30 100 05/04/18 19:10 Mechanical Ventilator 100 05/04/18 18:00 129 30 137/74 (95) 77 05/04/18 17:54 130 30 100 05/04/18 17:31 104/63 05/04/18 17:30 130 30 142/76 (98) 78 05/04/18 17:10 132 30 100 05/04/18 17:00 132 30 129/69 (89) 78 05/04/18 16:30 132 30 104/57 (73) 76 05/04/18 16:00 130 05/04/18 16:00 131 30 103/59 (74) 77 05/04/18 16:00 Mechanical Ventilator 05/04/18 16:00 98.0 131 30 103/59 (74) 77 05/04/18 16:00 100 05/04/18 15:30 143 30 100 05/04/18 15:30 133 30 147/81 (103) 82 05/04/18 15:00 108 30 111/76 (88) 80 05/04/18 15:00 108 31 111/76 (88) 47 05/04/18 15:00 59 30 100 05/04/18 14:34 114 30 100 05/04/18 14:02 71/35 05/04/18 14:00 127 30 96/51 (66) 80 05/04/18 13:11 140 Mechanical Ventilator 100 05/04/18 13:11 140 Mechanical Ventilator 100 05/04/18 13:09 140 30 100 05/04/18 13:00 97.8 135 30 81/45 (57) 97 05/04/18 12:00 88 05/04/18 12:00 100 05/04/18 12:00 Mechanical Ventilator 05/04/18 12:00 67 30 71/35 (47) 80 05/04/18 11:00 108 30 84/50 (61) 87 05/04/18 11:00 90/48 05/04/18 10:33 118 30 100 05/04/18 10:00 102 30 92/50 (64) 97 05/04/18 10:00 131/60 05/04/18 09:20 90 30 100 05/04/18 09:00 80/47 05/04/18 09:00 94 30 131/60 (83) 97 05/04/18 08:00 99 05/04/18 08:00 118/60 05/04/18 08:00 Mechanical Ventilator 05/04/18 08:00 100 05/04/18 08:00 98.2 95 30 118/60 (79) 97 05/04/18 07:45 98/48 05/04/18 07:01 94 30 100 Mechanical Ventilator 100 05/04/18 07:00 92/49 05/04/18 07:00 92/49 05/04/18 07:00 95 30 92/49 (63) 97 05/04/18 06:51 94 30 95 Mechanical Ventilator 100 05/04/18 06:50 95 30 100 05/04/18 06:30 100 30 118/61 (80) 97 05/04/18 06:00 100 30 124/64 (84) 97 05/04/18 06:00 124/64 05/04/18 06:00 124/64 05/04/18 05:33 90/50 05/04/18 05:30 94 30 89/49 (62) 95 05/04/18 05:00 98 30 111/53 (72) 99 05/04/18 05:00 111/53 05/04/18 05:00 111/53 05/04/18 04:45 96 30 97/51 (66) 98 05/04/18 04:30 97 29 95/50 (65) 98 05/04/18 04:15 99 30 88/49 (62) 98 05/04/18 04:00 99 05/04/18 04:00 Mechanical Ventilator 05/04/18 04:00 100 05/04/18 04:00 98/57 05/04/18 04:00 98/57 05/04/18 04:00 97.3 103 23 98/57 (71) 84 05/04/18 03:45 101 29 110/57 (74) 93 05/04/18 03:30 98 30 104/52 (69) 95 05/04/18 03:15 98 30 101/52 (68) 95 05/04/18 03:00 98/55 05/04/18 03:00 98/55 05/04/18 03:00 98 30 98/55 (69) 95 05/04/18 02:45 99 30 100/54 (69) 95 05/04/18 02:30 98 30 101/53 (69) 95 05/04/18 02:15 92 30 91/49 (63) 94 05/04/18 02:00 96/51 05/04/18 02:00 96/51 05/04/18 02:00 98 30 96/51 (66) 96 05/04/18 01:45 97 30 105/53 (70) 97 05/04/18 01:30 96 30 113/56 (75) 97 05/04/18 01:15 92 30 115/59 (77) 97 05/04/18 01:00 94/51 05/04/18 01:00 94/51 05/04/18 01:00 85 30 94/51 (65) 100 05/04/18 00:45 81 30 91/54 (66) 97 05/04/18 00:30 82 30 94/51 (65) 98 05/04/18 00:15 81 30 97/48 (64) 98 05/04/18 00:00 97.4 82 30 92/50 (64) 98 05/04/18 00:00 82 05/04/18 00:00 Mechanical Ventilator 05/04/18 00:00 97/48 05/04/18 00:00 97/48 3/22/19 00:00 100 05/03/18 23:45 81 30 96/50 (65) 98 05/03/18 23:30 81 30 99/55 (70) 99 05/03/18 23:15 82 30 101/53 (69) 99 05/03/18 23:00 82 30 95/51 (66) 99 05/03/18 23:00 101/53 05/03/18 23:00 101/53 05/03/18 22:45 81 30 101/53 (69) 100 05/03/18 22:30 81 30 95/53 (67) 100 05/03/18 22:15 81 30 100/54 (69) 100 05/03/18 22:00 100/54 05/03/18 22:00 100/54 05/03/18 22:00 82 30 99/54 (69) 100 Intake and Output 05/03/18 05/04/18 19:00 07:00 Intake Total 2213.697 ml 1788.148 ml Output Total 332 ml 100 ml Balance 1881.697 ml 1688.148 ml IV Total 2153.697 ml 1668.148 ml Tube Feeding 10 ml 120 ml Other 50 ml Output Urine Total 332 ml 100 ml # Bowel Movements 1 1 Laboratory Tests 05/04/18 03:30: White Blood Count 14.4H, Red Blood Count 2.80L, Hemoglobin 8.8L, Hematocrit 25.9L, Mean Corpuscular Volume 92, Mean Corpuscular Hemoglobin 31.3H, Mean Corpuscular Hemoglobin Concent 33.8, Red Cell Distribution Width 13.8, Platelet Count 85L, Mean Platelet Volume 13.1H, Neutrophils (%) (Auto) , Lymphocytes (%) (Auto) , Monocytes (%) (Auto) , Eosinophils (%) (Auto) , Basophils (%) (Auto) , Sodium Level 144, Potassium Level 3.0L, Chloride Level 106, Carbon Dioxide Level 30, Anion Gap 8, Blood Urea Nitrogen 58H, Creatinine 4.4H, Estimat Glomerular Filtration Rate 13.9, Glucose Level 103, Uric Acid 5.0, Calcium Level 7.7L, Phosphorus Level 2.4L, Magnesium Level 1.6L, Total Bilirubin 0.5, Gamma Glutamyl Transpeptidase 143H, Aspartate Amino Transf (AST/SGOT) 95H, Alanine Aminotransferase (ALT/SGPT) 21, Alkaline Phosphatase 123H, Ammonia 47H, Pro-B-Type Natriuretic Peptide 46453Q, Total Protein 5.0L, Albumin 1.3L, Globulin 3.7, Albumin/Globulin Ratio 0.4L 05/04/18 03:50: Random Vancomycin Level 18.6 05/04/18 14:55: Arterial Blood pH 7.256L, Arterial Blood Partial Pressure CO2 54.3H, Arterial Blood Partial Pressure O2 < 45.3*L, Arterial Blood HCO3 23.6, Arterial Blood Oxygen Saturation 20.8*L, Arterial Blood Base Excess -3.5L, Aaron Test Positive 05/04/18 16:45: Arterial Blood pH 7.220*L, Arterial Blood Partial Pressure CO2 52.1H, Arterial Blood Partial Pressure O2 49.7*L, Arterial Blood HCO3 20.8L, Arterial Blood Oxygen Saturation 79.3*L, Arterial Blood Base Excess -6.9L, Aaron Test Positive 05/04/18 20:08: Arterial Blood pH 7.309L, Arterial Blood Partial Pressure CO2 48.1H, Arterial Blood Partial Pressure O2 56.6L, Arterial Blood HCO3 23.6, Arterial Blood Oxygen Saturation 87.5*L, Arterial Blood Base Excess -2.8L, Aaron Test Positive Height (Feet): 5 Height (Inches): 10.00 Weight (Pounds): 170 General Appearance: lethargic, confused Respiratory/Chest: rhonchi - bilaterally Farhan Joaquin MD May 04, 2018 22:01
--- NOTE | 2018-05-04 23:00 | NUR ---
NURSE NOTES: Followed up with the lab regarding Midazolam level result, as per the staff the lab test was sent out.
--- NOTE | 2018-05-04 23:06 | Emergency Room Report ---
History of Present Illness General Chief Complaint: Seizure Source: Caregiver Present Illness Allergies: Coded Allergies: No Known Allergies (Unverified , 04/24/18) Nursing Documentation-PMH Hx Cardiac Problems: Yes Hx Hypertension: Yes Hx Diabetes: Yes Hx Cancer: No Hx Gastrointestinal Problems: No History Of Psychiatric Problem: Yes - ETOH abuse Hx Neurological Problems: No Physical Exam Vital Signs Date Time Temp Pulse Resp B/P (MAP) Pulse Ox O2 Delivery O2 Flow Rate FiO2 04/30/18 07:00 96 40 104/70 (81) 99 04/30/18 07:14 Mechanical Ventilator 90 04/30/18 09:00 98.9 05/02/18 07:16 15.0 Procedures CPR/Code Blue CPR/Code Blue Narrative see code blue sheet for full narrative Medical Decision Making Diagnostic Impression: Primary Impression: Epileptic seizure, generalized Additional Impressions: Alcohol abuse Anemia Alcohol withdrawal ER Course I was called to the ICU for this CODE BLUE. Patient became asystolic. Patient given epinephrine. Given calcium and bicarbonate. Already intubated. After multiple rounds of compressions patient regains pulse. Pulse remains for only a few minutes and then is again gone I was called back to the ICU to continue CODE BLUE. After several rounds of compressions and epinephrine patient regained pulses. Discussed with nursing this is multiple codes for the patient to the last few days. Patient is on 2 pressors and max dose. Prognosis is poor for the patient. I discussed with daughter over the phone. She states she will discuss with family about patient's CODE STATUS Last Vital Signs Date Time Temp Pulse Resp B/P (MAP) Pulse Ox O2 Delivery O2 Flow Rate FiO2 05/04/18 23:01 121 30 100 05/04/18 20:00 Mechanical Ventilator 05/04/18 19:37 91/48 05/04/18 18:00 77 05/04/18 16:00 98.0 05/02/18 13:26 15.0 Status: improved Disposition: ADMITTED INPATIENT Condition: Critical Referrals: NOT CHOSEN GHASSAN/,REFERRING (PCP) Justin Kim MD May 04, 2018 23:06
[2018-05-05] VITALS (24 sets, daily range): BP systolic 37–147; BP diastolic 12–69
--- NOTE | 2018-05-05 | NUR ---
NURSE NOTES: Residual checked, still noted with 150ml clear greenish residual. PRN Metoclopromide given. Feeding still hold at this time. Head of bed kept elevated.
[2018-05-05] MEDS: Piperacillin/Tazobactam 3.375 GM in NS 110 ML IVPB SCH ×2 (00:39→11:21)
[2018-05-05] MEDS: NovoLOG Insulin Flexpen SUBQ SCH ×3 (00:40→09:00)
[2018-05-05] MEDS: Metoclopramide 10mg/2ml Inj IVP PRN ×2 (00:47→08:27)
[2018-05-05] MEDS: Albuterol/Ipratropium 3ml neb HHN SCH ×2 (01:00→07:00)
--- NOTE | 2018-05-05 02:00 | NUR ---
NURSE NOTES: Patient maxed on Levophed and Dopamine. Sinus tach on the monitor.
[2018-05-05] MEDS: DOPamine 400mg/250ml 250 ML IV SCH ×3 (02:40→07:13)
--- NOTE | 2018-05-05 04:00 | NUR ---
NURSE NOTES: Bed bath, oral care, change of linens done.
--- NOTE | 2018-05-05 04:00 | Progress Note ---
DATE: 05/04/2018 SUBJECTIVE: The patient had 2 asystolic cardiac arrests today lasting for a total of 14 minutes. The patient was resuscitated. The Versed level and the benzodiazepine levels are still pending. PHYSICAL EXAMINATION: VITAL SIGNS: Blood pressure is 118/64, pulse is 132, respiratory rate is 30 respirator, temperature is 98.2, axillary. MENTAL STATUS: The patient is in a deep coma. He has no reaction to deep pain in all 4 extremities and on his chest. CRANIAL NERVE EXAMINATION: CRANIAL NERVES III, IV, AND : The eyes are in the midline. Doll's eyes negative. Pupils are about 7 mm, round. No light reaction. CRANIAL NERVE V: Corneals are absent bilaterally. CRANIAL NERVES VII THROUGH XII: Could not be elicited. MUSCLE EXAMINATION: The patient has flaccid quadriplegia. Reflexes are 0 in the upper and lower extremities. Indefinite toe signs on testing for Babinski response. IMPRESSION: Most probably the patient's level is at spinal cord. He is probably brain , especially with the periods of systole of 14 minutes at his previous code. I am going to benzodiazepine level is back or rather the Versed level is back, I will obtain the brain EEG in the morning. PLAN: Noted as above. James Caicedo MD DR: JOELLE JOB#: [id number] CC: BREE
[2018-05-05] MEDS: Vasopressin 100 UNITS in NS 95 ML IV SCH (05:00)
[2018-05-05 05:24] LABS: HEMATOCRIT 30.3 % (42.0-52.0); HEMOGLOBIN 9.8 G/DL (14.2-18.0); MEAN CORPUSCULAR VOLUME 96 FL (80-99); PLATELET COUNT 117 K/UL (150-450); RED BLOOD COUNT 3.18 M/UL (4.70-6.10); RED CELL DISTRIBUTION WIDTH 14.2 % (11.6-14.8)
[2018-05-05 05:53] LABS: ALANINE AMINOTRANSFERASE 25 U/L (12-78); ALBUMIN 1.3 G/DL (3.4-5.0); ALBUMIN/GLOBULIN RATIO 0.3 (1.0-2.7); ALKALINE PHOSPHATASE 185 U/L (46-116); ANION GAP 12 mmol/L (5-15); ASPARTATE AMINO TRANSFERASE 122 U/L (15-37); BILIRUBIN,TOTAL 0.6 MG/DL (0.2-1.0); BLOOD UREA NITROGEN 60 mg/dL (7-18); CARBON DIOXIDE 26 MMOL/L (21-32); CHLORIDE 101 MMOL/L (98-107); GAMMA GLUTAMYL TRANSPEPTIDASE 152 U/L (5-85); POTASSIUM 4.2 MMOL/L (3.5-5.1); SODIUM 139 MMOL/L (136-145)
--- NOTE | 2018-05-05 06:00 | NUR ---
NURSE NOTES: Saturation 96-97% on the curren vent settings. Still no response to pain, no pupillary reaction to light. Flaccid extremities. Daughter at bedside.
[2018-05-05] MEDS: Midodrine 10mg tab NG SCH (06:31)
[2018-05-05] MEDS: D5 1/2NS 1,000 ML IV SCH (06:31)
[2018-05-05] MEDS: Acetaminophen 650mg/20.3ml NG PRN (07:05)
--- NOTE | 2018-05-05 07:19 | General Progress Note ---
Assessment/Plan Problem List: (1) Acute respiratory failure ICD Codes: J96.00 - Acute respiratory failure, unspecified whether with hypoxia or hypercapnia SNOMED: 26323773 (2) Diabetes ICD Codes: E11.9 - Type 2 diabetes mellitus without complications SNOMED: 41740234 (3) Diabetic nephropathy ICD Codes: E11.21 - Type 2 diabetes mellitus with diabetic nephropathy SNOMED: 029162697 (4) Renal failure (ARF), acute on chronic ICD Codes: N17.9 - Acute kidney failure, unspecified; N18.9 - Chronic kidney disease, unspecified SNOMED: 711896174 (5) Alcohol abuse ICD Codes: F10.10 - Alcohol abuse, uncomplicated SNOMED: 59960750 (6) Anemia ICD Codes: D64.9 - Anemia, unspecified SNOMED: 339316848 (7) Alcohol withdrawal ICD Codes: F10.239 - Alcohol dependence with withdrawal, unspecified SNOMED: 824009422 (8) Epileptic seizure, generalized ICD Codes: G40.309 - Generalized idiopathic epilepsy and epileptic syndromes, not intractable, without status epilepticus SNOMED: 06535053 Assessment/Plan continue Novolog sliding scale every 4 hours no need for basal insulin for now Subjective ROS Limited/Unobtainable: Yes Allergies: Coded Allergies: No Known Allergies (Unverified , 04/24/18) Subjective events noted Item Value Date Time Bedside Blood Glucose 127 mg/dl H 05/05/18 0500 Bedside Blood Glucose 190 mg/dl H 05/05/18 0040 Bedside Blood Glucose 156 mg/dl H 05/04/18 2125 Bedside Blood Glucose 148 mg/dl H 05/04/18 1700 Bedside Blood Glucose 158 mg/dl H 05/04/18 1300 Bedside Blood Glucose 120 mg/dl 05/04/18 1016 Bedside Blood Glucose 114 mg/dl 05/04/18 0532 Objective Last 24 Hour Vital Signs Date Time Temp Pulse Resp B/P (MAP) Pulse Ox O2 Delivery O2 Flow Rate FiO2 05/05/18 07:13 134/54 05/05/18 06:00 101.6 125 30 133/63 (86) 97 05/05/18 05:45 123 30 147/69 (95) 97 05/05/18 05:30 123 30 146/63 (90) 97 05/05/18 05:15 122 30 133/64 (87) 96 05/05/18 05:12 121 30 100 05/05/18 05:00 119 30 129/68 (88) 96 05/05/18 04:48 115/65 05/05/18 04:45 121 30 118/62 (80) 93 05/05/18 04:30 121 30 115/65 (82) 91 05/05/18 04:15 121 30 119/62 (81) 91 05/05/18 04:00 99.5 121 30 126/65 (85) 91 05/05/18 04:00 100 05/05/18 04:00 Mechanical Ventilator 05/05/18 04:00 121 05/05/18 03:30 121 30 126/66 (86) 92 05/05/18 03:11 120 30 100 05/05/18 03:07 122/65 05/05/18 03:00 120 30 124/66 (85) 92 05/05/18 02:40 120/66 05/05/18 02:30 120 30 123/66 (85) 91 05/05/18 02:00 119 30 110/64 (79) 91 05/05/18 01:30 119 30 115/60 (78) 91 05/05/18 01:28 Mechanical Ventilator 100 05/05/18 01:28 122 30 100 05/05/18 01:28 Mechanical Ventilator 100 05/05/18 01:00 120 30 120/65 (83) 93 05/05/18 00:30 119 30 117/64 (81) 91 05/05/18 00:15 114 30 105/63 (77) 87 05/05/18 00:13 76/45 05/05/18 00:00 130 05/05/18 00:00 100 05/05/18 00:00 Mechanical Ventilator 05/05/18 00:00 99.0 121 30 122/64 (83) 92 05/04/18 23:45 121 30 118/64 (82) 92 05/04/18 23:30 121 30 120/62 (81) 92 05/04/18 23:15 120 30 115/65 (82) 92 05/04/18 23:10 100/60 05/04/18 23:01 121 30 100 05/04/18 23:00 120 30 97/55 (69) 92 05/04/18 22:45 121 30 110/58 (75) 92 05/04/18 22:30 123 30 111/59 (76) 92 05/04/18 22:15 124 30 124/65 (84) 91 05/04/18 22:00 125 30 126/66 (86) 90 05/04/18 21:45 128 30 127/67 (87) 93 05/04/18 21:30 128 30 124/69 (87) 93 05/04/18 21:15 128 30 128/70 (89) 93 05/04/18 21:04 128 30 100 05/04/18 21:00 128 30 148/77 (100) 92 05/04/18 20:45 128 30 137/74 (95) 93 05/04/18 20:30 128 30 150/67 (94) 93 05/04/18 20:15 128 30 143/76 (98) 92 05/04/18 20:00 100 05/04/18 20:00 Mechanical Ventilator 05/04/18 20:00 128 05/04/18 20:00 99.2 128 30 153/73 (99) 93 05/04/18 19:45 127 30 146/78 (100) 93 05/04/18 19:37 91/48 05/04/18 19:30 124 30 91/48 (62) 90 05/04/18 19:15 124 30 81/45 (57) 89 05/04/18 19:10 Mechanical Ventilator 100 05/04/18 19:10 128 30 100 05/04/18 19:10 Mechanical Ventilator 100 05/04/18 19:00 128 30 141/77 (98) 93 05/04/18 18:00 129 30 137/74 (95) 77 05/04/18 17:54 130 30 100 05/04/18 17:31 104/63 05/04/18 17:30 130 30 142/76 (98) 78 05/04/18 17:10 132 30 100 05/04/18 17:00 132 30 129/69 (89) 78 05/04/18 16:30 132 30 104/57 (73) 76 05/04/18 16:00 130 05/04/18 16:00 131 30 103/59 (74) 77 05/04/18 16:00 Mechanical Ventilator 05/04/18 16:00 98.0 131 30 103/59 (74) 77 3/22/19 16:00 100 05/04/18 15:30 143 30 100 05/04/18 15:30 133 30 147/81 (103) 82 05/04/18 15:00 108 30 111/76 (88) 80 05/04/18 15:00 108 31 111/76 (88) 47 05/04/18 15:00 59 30 100 05/04/18 14:34 114 30 100 05/04/18 14:02 71/35 05/04/18 14:00 127 30 96/51 (66) 80 05/04/18 13:11 140 Mechanical Ventilator 100 05/04/18 13:11 140 Mechanical Ventilator 100 05/04/18 13:09 140 30 100 05/04/18 13:00 97.8 135 30 81/45 (57) 97 05/04/18 12:00 88 05/04/18 12:00 100 05/04/18 12:00 Mechanical Ventilator 05/04/18 12:00 67 30 71/35 (47) 80 05/04/18 11:00 108 30 84/50 (61) 87 05/04/18 11:00 90/48 05/04/18 10:33 118 30 100 05/04/18 10:00 102 30 92/50 (64) 97 05/04/18 10:00 131/60 05/04/18 09:20 90 30 100 05/04/18 09:00 80/47 05/04/18 09:00 94 30 131/60 (83) 97 05/04/18 08:00 99 05/04/18 08:00 118/60 05/04/18 08:00 Mechanical Ventilator 05/04/18 08:00 100 05/04/18 08:00 98.2 95 30 118/60 (79) 97 05/04/18 07:45 98/48 Intake and Output 05/04/18 05/05/18 19:00 07:00 Intake Total 3044.820 ml Output Total 35 ml 0 ml Balance 3009.820 ml 0 ml IV Total 3044.820 ml Output Urine Total 35 ml 0 ml # Bowel Movements 3 Laboratory Tests 05/04/18 14:55: Arterial Blood pH 7.256L, Arterial Blood Partial Pressure CO2 54.3H, Arterial Blood Partial Pressure O2 < 45.3*L, Arterial Blood HCO3 23.6, Arterial Blood Oxygen Saturation 20.8*L, Arterial Blood Base Excess -3.5L, Aaron Test Positive 05/04/18 16:45: Arterial Blood pH 7.220*L, Arterial Blood Partial Pressure CO2 52.1H, Arterial Blood Partial Pressure O2 49.7*L, Arterial Blood HCO3 20.8L, Arterial Blood Oxygen Saturation 79.3*L, Arterial Blood Base Excess -6.9L, Aaron Test Positive 05/04/18 20:08: Arterial Blood pH 7.309L, Arterial Blood Partial Pressure CO2 48.1H, Arterial Blood Partial Pressure O2 56.6L, Arterial Blood HCO3 23.6, Arterial Blood Oxygen Saturation 87.5*L, Arterial Blood Base Excess -2.8L, Aaron Test Positive 05/05/18 04:35: White Blood Count 26.0#*H, Red Blood Count 3.18L, Hemoglobin 9.8L, Hematocrit 30.3L, Mean Corpuscular Volume 96, Mean Corpuscular Hemoglobin 30.7, Mean Corpuscular Hemoglobin Concent 32.2, Red Cell Distribution Width 14.2, Platelet Count 117L, Mean Platelet Volume 9.8, Neutrophils (%) (Auto) , Lymphocytes (%) ( Auto) , Monocytes (%) (Auto) , Eosinophils (%) (Auto) , Basophils (%) (Auto) , Neutrophils % (Manual) [Pending], Lymphocytes % (Manual) [Pending], Platelet Estimate [Pending], Platelet Morphology [Pending], Sodium Level 139, Potassium Level 4.2, Chloride Level 101, Carbon Dioxide Level 26, Anion Gap 12, Blood Urea Nitrogen 60H, Creatinine 5.0H, Estimat Glomerular Filtration Rate 12.0, Glucose Level 243#H, Uric Acid 5.2, Calcium Level 8.0L, Phosphorus Level 5.0H, Magnesium Level 1.9, Total Bilirubin 0.6, Gamma Glutamyl Transpeptidase 152H, Aspartate Amino Transf (AST/SGOT) 122H, Alanine Aminotransferase (ALT/SGPT) 25, Alkaline Phosphatase 185H, C-Reactive Protein, Quantitative 37.3H, Pro-B-Type Natriuretic Peptide > 42541C, Total Protein 5.4L, Albumin 1.3L, Globulin 4.1, Albumin/Globulin Ratio 0.3L, Phenytoin (Dilantin) Level 10.7 Height (Feet): 5 Height (Inches): 10.00 Weight (Pounds): 170 General Appearance: severe distress Neck: normal alignment Cardiovascular: tachycardia Respiratory/Chest: decreased breath sounds Abdomen: normal bowel sounds Objective Current Medications Medications (Trade) Dose Ordered Sig/Bj Route PRN Reason Start Time Stop Time Status Last Admin Dose Admin Acetaminophen (Tylenol) 650 mg Q4H PRN NG Mild Pain/Temp > 100.5 05/01/18 15:30 05/27/18 21:29 05/05/18 07:05 Acetaminophen (Tylenol) 650 mg Q4H PRN RECTAL Mild Pain (Pain Scale 1-3) 04/27/18 21:30 05/27/18 21:29 04/28/18 14:39 Acyclovir 800 mg/ Sodium Chloride 275 ml @ 275 mls/hr Q24HRS IV 05/02/18 10:00 05/12/18 11:00 05/04/18 10:57 Albuterol/ Ipratropium (Albuterol/ Ipratropium) 3 ml Q4H PRN HHN Shortness of Breath 05/03/18 12:45 05/08/18 12:44 Albuterol/ Ipratropium (Albuterol/ Ipratropium) 3 ml Q6HRT HHN 05/03/18 13:00 05/08/18 12:59 05/04/18 06:51 Allopurinol (Zyloprim) 200 mg DAILY NG 04/29/18 09:00 05/28/18 08:59 05/04/18 08:48 Chlorhexidine Gluconate (Lidia-Hex 2%) 1 applic DAILY@2000 TOPIC 05/01/18 20:00 05/31/18 19:59 05/04/18 20:10 Clonidine HCl (Catapres Tab) 0.1 mg Q4H PRN NG bp over 160 syst 05/01/18 15:30 05/26/18 21:29 Dextrose (Dextrose 50%) 25 ml Q30M PRN IV Hypoglycemia 04/29/18 07:30 05/29/18 07:29 Dextrose (Dextrose 50%) 50 ml Q30M PRN IV Hypoglycemia 04/29/18 07:30 05/29/18 07:29 05/03/18 16:40 Dextrose/Sodium Chloride 1,000 ml @ 50 mls/hr Q20H IV 05/04/18 11:45 06/03/18 11:44 05/05/18 06:31 Dopamine HCl/ Dextrose 250 ml @ 0 mls/hr Q24H IV 05/02/18 04:45 06/01/18 04:44 05/05/18 07:13 Folic Acid (Folate) 1 mg DAILY NG 05/02/18 09:00 06/01/18 08:59 05/04/18 08:47 Heparin Sodium (Porcine) (Heparin 5000 units/ml) 5,000 units EVERY 12 HOURS SUBQ 04/28/18 09:00 05/27/18 20:59 05/02/18 20:55 Insulin Aspart (NovoLOG) EVERY 4 HOURS SUBQ 04/29/18 09:00 05/29/18 08:59 05/05/18 04:43 Levetiracetam 250 mg/Sodium Chloride 112.5 ml @ 450 mls/hr Q12HR IV 04/27/18 22:00 05/27/18 21:59 05/04/18 21:45 Lorazepam (Ativan 2mg/ml 1ml) 2 mg Q4H PRN IV For Anxiety 04/30/18 09:45 05/07/18 09:44 05/01/18 03:38 Metoclopramide HCl (Reglan) 10 mg Q6H PRN IVP Nausea & Vomiting 05/04/18 13:00 06/03/18 12:59 05/05/18 00:47 Midazolam HCl 100 ml @ 2 mls/hr Q24H IVPB 04/28/18 16:15 05/05/18 16:14 04/30/18 19:55 Midodrine (Pro-Amatine) 10 mg Q8HR NG 05/04/18 14:00 06/03/18 13:59 05/05/18 06:31 Multivitamins (Multivitamins) 1 tab DAILY ORAL 05/02/18 09:00 06/01/18 08:59 05/04/18 08:48 Norepinephrine Bitartrate 8 mg/ Dextrose 508 ml @ 0 mls/hr Q24H IV 04/29/18 07:45 05/29/18 07:44 05/05/18 04:48 Ondansetron HCl (Zofran) 4 mg Q6H PRN IVP Nausea & Vomiting 04/27/18 21:30 05/27/18 21:29 Pantoprazole (Protonix) 40 mg EVERY 12 HOURS IVP 04/28/18 09:00 05/25/18 20:59 05/04/18 20:10 Phenytoin 300 mg/ Sodium Chloride 116 ml @ 120 mls/hr QHS IVPB 05/05/18 21:00 05/28/18 08:59 Piperacillin Sod/ Tazobactam Sod 3.375 gm/Sodium Chloride 110 ml @ 27.5 mls/hr Q12H IVPB 04/29/18 00:00 05/06/18 00:00 05/05/18 00:39 Thiamine HCl 100 mg/Sodium Chloride 56 ml @ 112 mls/hr Q24H IVPB 04/29/18 15:00 05/29/18 14:59 05/04/18 16:52 Vasopressin 100 units/Sodium Chloride 100 ml @ 2.4 mls/hr Q24H IV 05/03/18 05:00 06/02/18 04:59 05/03/18 05:18 Shoaib Ocampo MD May 05, 2018 07:18
--- NOTE | 2018-05-05 07:25 | NUR ---
HAND-OFF: Temp 101.6. Cooling measures initiated. Called Dr. Angel Combs for WBC and fever. Awaiting return call. Report given to SHARLA Pena
--- NOTE | 2018-05-05 08:02 | NUR ---
NURSE NOTES: Patient received in comatose state.Non responsive to verbal and deep pain. Orally intubated , ETT 7.5 Rate 30 Vt 550 FiO2 100% Peep 18 , pressure control, 1:1 ratio and saturate varies between 86 and 92% at this time.Temperature 100.0. Oral care done, turned and repositioned.Will continue to monitor.
[2018-05-05] MEDS: Pantoprazole Inj IVP SCH (08:22)
[2018-05-05] MEDS: Allopurinol 100mg Tab NG SCH (08:23)
[2018-05-05] MEDS: Heparin 5000 units/ml inj SUBQ SCH (08:26)
[2018-05-05] MEDS: NS IV SCH ×2 (09:00→10:00)
[2018-05-05] MEDS: LEVETIRACETAM IV SCH (09:00)
--- NOTE | 2018-05-05 09:20 | NUR ---
NURSE NOTES: First code called with bradycardia to asystole.RT,code blue team,RNs present and Dr Crzu from ER present.On max Levophed at 30mcg/kg/mn, max Dopamine 20mcg/kg/hr .Code successful and Daughter Suzanne made aware.
--- NOTE | 2018-05-05 09:32 | Emergency Room Report ---
Physical Exam Called for Code Blue Patient on maximal pressors. Epi given before I arrived. CPR in progress. Last 24 Hour Vital Signs Date Time Temp Pulse Resp B/P (MAP) Pulse Ox O2 Delivery O2 Flow Rate FiO2 05/05/18 08:00 Mechanical Ventilator 05/05/18 08:00 100 05/05/18 08:00 122 30 116/61 (79) 95 05/05/18 07:35 100.0 05/05/18 07:24 124 34 100 05/05/18 07:13 134/54 05/05/18 07:00 100.0 122 30 116/59 (78) 95 05/05/18 06:00 101.6 125 30 133/63 (86) 97 05/05/18 06:00 142/68 05/05/18 05:45 123 30 147/69 (95) 97 05/05/18 05:30 123 30 146/63 (90) 97 05/05/18 05:15 122 30 133/64 (87) 96 05/05/18 05:12 121 30 100 05/05/18 05:00 133/64 05/05/18 05:00 119 30 129/68 (88) 96 05/05/18 04:48 115/65 05/05/18 04:45 121 30 118/62 (80) 93 05/05/18 04:30 121 30 115/65 (82) 91 05/05/18 04:15 121 30 119/62 (81) 91 05/05/18 04:00 99.5 121 30 126/65 (85) 91 05/05/18 04:00 100 05/05/18 04:00 Mechanical Ventilator 05/05/18 04:00 119/62 05/05/18 04:00 121 05/05/18 03:30 121 30 126/66 (86) 92 05/05/18 03:11 120 30 100 05/05/18 03:07 122/65 05/05/18 03:00 120 30 124/66 (85) 92 05/05/18 03:00 124/66 05/05/18 02:40 120/66 05/05/18 02:30 120 30 123/66 (85) 91 05/05/18 02:00 110/64 05/05/18 02:00 119 30 110/64 (79) 91 05/05/18 01:30 119 30 115/60 (78) 91 05/05/18 01:28 Mechanical Ventilator 100 05/05/18 01:28 122 30 100 05/05/18 01:28 Mechanical Ventilator 100 05/05/18 01:00 120/65 05/05/18 01:00 120 30 120/65 (83) 93 05/05/18 00:30 119 30 117/64 (81) 91 05/05/18 00:15 114 30 105/63 (77) 87 05/05/18 00:13 76/45 05/05/18 00:00 130 05/05/18 00:00 100 05/05/18 00:00 74/39 05/05/18 00:00 74/39 05/05/18 00:00 Mechanical Ventilator 05/05/18 00:00 99.0 121 30 122/64 (83) 92 05/04/18 23:45 121 30 118/64 (82) 92 05/04/18 23:30 121 30 120/62 (81) 92 05/04/18 23:15 120 30 115/65 (82) 92 05/04/18 23:10 100/60 05/04/18 23:01 121 30 100 05/04/18 23:00 100/60 05/04/18 23:00 120 30 97/55 (69) 92 05/04/18 22:45 121 30 110/58 (75) 92 05/04/18 22:30 123 30 111/59 (76) 92 05/04/18 22:15 124 30 124/65 (84) 91 05/04/18 22:00 125 30 126/66 (86) 90 05/04/18 22:00 115/68 05/04/18 21:45 128 30 127/67 (87) 93 05/04/18 21:30 128 30 124/69 (87) 93 05/04/18 21:15 128 30 128/70 (89) 93 05/04/18 21:04 128 30 100 05/04/18 21:00 128 30 148/77 (100) 92 05/04/18 21:00 142/70 05/04/18 20:45 128 30 137/74 (95) 93 05/04/18 20:30 128 30 150/67 (94) 93 05/04/18 20:15 128 30 143/76 (98) 92 05/04/18 20:00 100 05/04/18 20:00 Mechanical Ventilator 05/04/18 20:00 128 05/04/18 20:00 153/73 05/04/18 20:00 99.2 128 30 153/73 (99) 93 05/04/18 19:45 127 30 146/78 (100) 93 05/04/18 19:37 91/48 05/04/18 19:30 124 30 91/48 (62) 90 05/04/18 19:15 124 30 81/45 (57) 89 05/04/18 19:10 Mechanical Ventilator 100 05/04/18 19:10 128 30 100 05/04/18 19:10 Mechanical Ventilator 100 05/04/18 19:00 128 30 141/77 (98) 93 05/04/18 18:00 129 30 137/74 (95) 77 05/04/18 17:54 130 30 100 05/04/18 17:31 104/63 05/04/18 17:30 130 30 142/76 (98) 78 05/04/18 17:10 132 30 100 05/04/18 17:00 132 30 129/69 (89) 78 05/04/18 16:30 132 30 104/57 (73) 76 05/04/18 16:00 130 05/04/18 16:00 131 30 103/59 (74) 77 05/04/18 16:00 Mechanical Ventilator 05/04/18 16:00 98.0 131 30 103/59 (74) 77 05/04/18 16:00 100 05/04/18 15:30 143 30 100 05/04/18 15:30 133 30 147/81 (103) 82 05/04/18 15:00 108 30 111/76 (88) 80 05/04/18 15:00 108 31 111/76 (88) 47 05/04/18 15:00 59 30 100 05/04/18 14:34 114 30 100 05/04/18 14:02 71/35 05/04/18 14:00 127 30 96/51 (66) 80 05/04/18 13:11 140 Mechanical Ventilator 100 05/04/18 13:11 140 Mechanical Ventilator 100 05/04/18 13:09 140 30 100 05/04/18 13:00 97.8 135 30 81/45 (57) 97 05/04/18 12:00 88 05/04/18 12:00 100 05/04/18 12:00 Mechanical Ventilator 05/04/18 12:00 67 30 71/35 (47) 80 05/04/18 11:00 108 30 84/50 (61) 87 05/04/18 11:00 90/48 05/04/18 10:33 118 30 100 05/04/18 10:00 102 30 92/50 (64) 97 05/04/18 10:00 131/60 Sp02 EP Interpretation: reviewed, normal General Appearance: other - unresponsive, Chronically Ill Eyes: bilateral eye other - fixed pupils ENT: moist mucus membranes, other - ET Neck: other - flaccid Respiratory: rhonchi, other Cardiovascular #1: tachycardia Cardiovascular #2: 2+ femoral (R) Gastrointestinal: decreased bowel sounds Genitourinary: other - moralez Musculoskeletal: other - flaccid Neurologic: other - unresponsive Psychiatric: other - unresponsive Skin: mottled CPR/Code Blue CPR/Code Blue Narrative Code #1 Start 9:18. Asystole On levophed and second pressor. CPR being performed under my supervision. Epi had been given X1. Pulses with sinus tach @ 9:22. ABG ordered. Code #2 Start 9:49. Asystole CPR being performed under my supervision. Epi had been given X2. Pulses with sinus tach at 9:52. ABG with respiratory acidosis. Increased rate (pressure dependent vent). Code #3 Start 10:04. Asystole. CPR being performed under my supervision. Epi had been given X2. Pulses with sinus tach at 10:09. Code #4 Start at 10:28. CPR being performed under my supervision. Epi had been given X2. Pulses with sinus tach at 10:32. Attempting to perform EEG. Code #5 CPR being performed under my supervision. Epi had been given X2. Pulses with sinus tach. Order epi drip. EEG no brain activity. Contact Dr. Joaquin to make No Code. States will not as bioethics consult pending. Code #6 Start 10:58 CPR being performed under my supervision. Epi had been given X2. Pulses with sinus at 11:01. Contact Dr. Griffin to make No Code. No response. Code #7 Asystole CPR being performed under my supervision. Epi drip wide open. Rhythm change to PEA. It is clear that further resuscitation efforts futile. Patient demonstrates cardiopulmonary unresponsiveness. Code stopped and patient pronounced at 11:39. Medical Decision Making Diagnostic Impression: Primary Impression: Cardiopulmonary arrest ER Course Patient post 2 Code Blue's yesterday. ARDS. Respiratory acidosis. Multiorgan failure. Has been unresponsive. See multiple Code Blue reports. EEG with no brain activity. Final Code with obvious futility of care. Patient pronounced at 11:39. Laboratory Tests Test 05/04/18 14:55 05/04/18 16:45 05/04/18 20:08 05/05/18 04:35 Arterial Blood pH 7.256 (7.350-7.450) 7.220 (7.350-7.450) 7.309 (7.350-7.450) Arterial Blood Partial Pressure CO2 54.3 mmHg (35.0-45.0) H 52.1 mmHg (35.0-45.0) H 48.1 mmHg (35.0-45.0) H Arterial Blood Partial Pressure O2 < 45.3 mmHg (75.0-100.0) 49.7 mmHg (75.0-100.0) 56.6 mmHg (75.0-100.0) L Arterial Blood HCO3 23.6 mmol/L (22.0-26.0) 20.8 mmol/L (22.0-26.0) L 23.6 mmol/L (22.0-26.0) Arterial Blood Oxygen Saturation 20.8 % (95-100) *L 79.3 % (95-100) *L 87.5 % (95-100) *L Arterial Blood Base Excess -3.5 (-2-2) L -6.9 (-2-2) L -2.8 (-2-2) L Aaron Test Positive Positive Positive White Blood Count 26.0 K/UL (4.8-10.8) #*H Red Blood Count 3.18 M/UL (4.70-6.10) L Hemoglobin 9.8 G/DL (14.2-18.0) L Hematocrit 30.3 % (42.0-52.0) L Mean Corpuscular Volume 96 FL (80-99) Mean Corpuscular Hemoglobin 30.7 PG (27.0-31.0) Mean Corpuscular Hemoglobin Concent 32.2 G/DL (32.0-36.0) Red Cell Distribution Width 14.2 % (11.6-14.8) Platelet Count 117 K/UL (150-450) L Mean Platelet Volume 9.8 FL (6.5-10.1) Neutrophils (%) (Auto) % (45.0-75.0) Lymphocytes (%) (Auto) % (20.0-45.0) Monocytes (%) (Auto) % (1.0-10.0) Eosinophils (%) (Auto) % (0.0-3.0) Basophils (%) (Auto) % (0.0-2.0) Differential Total Cells Counted 100 Neutrophils % (Manual) 83 % (45-75) H Lymphocytes % (Manual) 11 % (20-45) L Monocytes % (Manual) 6 % (1-10) Eosinophils % (Manual) 0 % (0-3) Basophils % (Manual) 0 % (0-2) Band Neutrophils 0 % (0-8) Platelet Estimate Decreased L Platelet Morphology Giant Platelets Occasional Polychromasia 1+ Anisocytosis 1+ Sodium Level 139 MMOL/L (136-145) Potassium Level 4.2 MMOL/L (3.5-5.1) Chloride Level 101 MMOL/L (98-107) Carbon Dioxide Level 26 MMOL/L (21-32) Anion Gap 12 mmol/L (5-15) Blood Urea Nitrogen 60 mg/dL (7-18) H Creatinine 5.0 MG/DL (0.55-1.30) H Estimate Glomerular Filtration Rate 12.0 mL/min (>60) Glucose Level 243 MG/DL (74-106) #H Uric Acid 5.2 MG/DL (2.6-7.2) Calcium Level 8.0 MG/DL (8.5-10.1) L Phosphorus Level 5.0 MG/DL (2.5-4.9) H Magnesium Level 1.9 MG/DL (1.8-2.4) Total Bilirubin 0.6 MG/DL (0.2-1.0) Gamma Glutamyl Transpeptidase 152 U/L (5-85) H Aspartate Amino Transferase (AST) 122 U/L (15-37) H Alanine Aminotransferase (ALT) 25 U/L (12-78) Alkaline Phosphatase 185 U/L (46-116) H C-Reactive Protein, Quantitative 37.3 mg/dL (0.00-0.90) H Pro-B-Type Natriuretic Peptide > 95869 pg/mL (0-125) H Total Protein 5.4 G/DL (6.4-8.2) L Albumin 1.3 G/DL (3.4-5.0) L Globulin 4.1 g/dL Albumin/Globulin Ratio 0.3 (1.0-2.7) L Phenytoin (Dilantin) Level 10.7 ug/mL (10-20) Test 05/05/18 09:25 Arterial Blood pH 7.181 (7.350-7.450) Arterial Blood Partial Pressure CO2 60.8 mmHg (35.0-45.0) *H Arterial Blood Partial Pressure O2 70.3 mmHg (75.0-100.0) L Arterial Blood HCO3 22.2 mmol/L (22.0-26.0) Arterial Blood Oxygen Saturation 91.0 % (95-100) L Arterial Blood Base Excess -6.3 (-2-2) L Aaron Test Positive Rhythm Strip Diag. Results EP Interpretation: yes Rhythm: no PVC's, no ectopy, other - ST Status: worsened Disposition: Condition: Referrals: NOT CHOSEN IPA/,REFERRING (PCP) Yariel Cruz MD May 05, 2018 09:31
--- NOTE | 2018-05-05 09:50 | NUR ---
NURSE NOTES: Second code called with same symptoms asystole.RT,code blue team,RNs present and Dr Cruz from ER present.On max Levophed at 30mcg/kg/mn, max Dopamine 20mcg/kg/hr .Code successful and Daughter Suzanne made aware.
[2018-05-05] MEDS: ACYCLOVIR IV SCH (10:00)
[2018-05-05] MEDS ORDERED: EPINEPHrine 1mg/1ml Amp 1 MG in D5W 249 ML IV SCH (10:15)
--- NOTE | 2018-05-05 10:15 | NUR ---
NURSE NOTES: Third code called at 1005.RT,code blue team,RNs present and Dr Cruz from ER present.On max Levophed at 30mcg/kg/mn, max Dopamine 20mcg/kg/hr .Code successful and spoke to Daughter Asia who does not want to change the code status of the patient and as stated she prefer their mother Merary Cooley to make the decision.Mother called and left message but still no feedback. Patient remains in critical condition and close monitoring
--- NOTE | 2018-05-05 10:28 | NUR ---
NURSE NOTES: Fourth code called.RT,code jeremy team,RNs present and Dr Cruz from ER present.On max Levophed at 30mcg/kg/mn, max Dopamine 20mcg/kg/hr .Code successful and Left message to Daughter Suzanne.
[2018-05-05] MEDS ORDERED: Sodium Bicarbonate 150 ML in D5W 1000ml 1,000 ML IV SCH (11:00)
--- NOTE | 2018-05-05 11:10 | NUR ---
NURSE NOTES: Called Merary Betancourt request to made her aware of patient 5th code and code status that remains full. Unable to reach. Called daughter Asia and Chayito to made them aware of the 5th code,but line unable to be reach at this time. Will follow up.
[2018-05-05] MEDS ORDERED: Tubing IV Secondary IV ONE ×4 (11:39→14:47)
[2018-05-05] MEDS ORDERED: Sterile Water Irrig 1000ml IRRIG ONE ×2 (11:39→14:47)
[2018-05-05] MEDS ORDERED: NS 275ml ONE ×2 (11:39→14:47)
--- NOTE | 2018-05-05 11:50 | NUR ---
NURSE NOTES: Six code called.RT,code blue team,RNs present and Dr Cruz from ER present.On max Levophed at 30mcg/kg/mn, max Dopamine 20mcg/kg/hr and wide open Epinephrine.Code unsuccessful and called at 1140 and patient pronounce by Dr Cruz. Left message to Daughter Suzanne. One legacy call and as stated ok to release body.
--- NOTE | 2018-05-05 11:50 | NUR ---
NURSE NOTES: Dr Phillip and Marcello were unable to reach Merary Cooley mother of Asia for code status change and bioethic meeting. Made aware of time of
--- NOTE | 2018-05-05 13:01 | NUR ---
NURSE NOTES: Daughter Chayito and mother Merary arrived with other family members and at bedside
[2018-05-05] MEDS ORDERED: 1/2 NS 1000ml IV ONE (14:46)
--- NOTE | 2018-05-05 16:20 | NUR ---
NURSE NOTES: Daughter sign authorization to take the body to morgue and mortuary.Remains taken down at 1620
[2018-05-05] MEDS ORDERED: NS IVPB SCH (21:00)
[2018-05-05] MEDS ORDERED: PHENYTOIN IVPB SCH (21:00)
--- NOTE | 2018-05-06 20:30 | Electroencephalogram ---
REQUESTING PHYSICIAN: James Caicedo M.D. READING PHYSICIAN: Brandon Quiñones M.D. DATE OF TRACIN05/05/2018 HISTORY: This EEG was performed on a 58-year-old gentleman with a history of multiple medical problems including respiratory failure and a seizure disorder. The patient was noted to have multiple episodes of cardiopulmonary arrest earlier and this EEG was performed to evaluate the patient for the degree and type of cerebral dysfunction. TECHNICAL NOTE: This EEG was performed on a [employer] with electrodes placed on the scalp according to the International 10-20 system. A special montage for electrocerebral inactivity was utilized using double distance electrodes and gains as high as 2 microvolts per millimeter. OBSERVATIONS: No electrical activity was seen at gains as high 2 microvolts per millimeter, using an electrocerebral inactivity montage with double distance electrodes. IMPRESSION: This is a severely abnormal EEG with absence of electrical cerebral activity. COMMENT: This study reveals electrocerebral inactivity. Clinical correlation is recommended. Brandon Quiñones M.D., M.S.P.H. DR: SULMA JOB#: [id number] MTDJulian
--- NOTE | 2018-05-08 10:06 | Discharge Summary ---
Discharge Summary Discharge Summary _ SUMMARY DATE OF ADMISSION: 04/25/2018 DATE OF EXPIRATION: 05/05/2018 REASON FOR ADMISSION: 58 years old male with past medical history of hypertension, diabetes, alcohol abuse, presented after new onset of seizures for several minutes . No prior history of seizure disorder. Patient had emesis prior to coming to emergency department with some red discoloration, but no definite blood. Patient was brought by paramedics, accompanied by his spouse. Spouse reported daily drinking of alcohol. Patient appeared to have tonic-clonic seizure. Upon evaluation blood pressure was elevated 178/101 , patient was tachycardic , with low-grade fever . CT of the head revealed mild age-related volume loss and periventricular white matter chronic ischemic changes, somewhat striking for patient age. No evidence of acute intracranial bleeding or mass-effect. Laboratory workup revealed no leukocytosis, hemoglobin 7.9 , hematocrit 23.7, platelet count 193. Stable electrolytes. BUN 15, creatinine 1.6. Glucose 89. Stable LFT and alkaline phosphatase. Troponin negative. EKG reveals sinus tachycardia no acute ischemic changes. Serum alcohol level less than 3. Albumin 3.2. In emergency department patient received Ativan and Keppra intravenously , and started on IV fluid. Patient also received GI prophylaxis with IV Pepcid. Patient was subsequently admitted for further management. CONSULTANTS: python web developer Dr. Raya neurologist Dr. Caicedo pulmonary Dr. Griffin ID specialist Dr. Joyner GI specialist DR. Jarrett electrical tech/project manager Dr. Rojas delivery driver assistant/oncologist Dr. Greenfield asp net developer [facility]SE: Patient was admitted to monitored bed. Seizure precautions maintained. Patient started on IV fluids with banana bag. Ativan was on standby as needed for withdrawal symptoms. D DVT and GI prophylaxis provided. Neurologist seen and evaluated patient Per neurologist, patient apparently had alcohol withdrawal seizures, but since patient had several seizure, neurologist started patient on Keppra renally dosing. Patient developed temperature next day. Infectious disease specialist closely followed. Blood cultures were negative. Urine cultures were negative. Sputum culture initially was negative and repeated sputum culture grew Nathalie. Patient initially without leukocytosis, but then developed leukocytosis, which was getting progressively worse. Patient was followed -up with chest x-ray for probable aspiration pneumonia. Chest x-ray showed worsening right lung parenchymal disease and bilateral pneumonia. Antibiotic provided as per ID specialist recommendations. Hepatitis panel was negative. HIV test was nonreactive. Philosophy Specialist followed . Renal parameters and electrolytes were closely monitored. Nephrotoxic avoided and electrolytes corrected as needed. Renal ultrasound revealed no evidence of hydronephrosis. Bilateral normal kidney echogenicity. On emergency room physician was called to evaluate patient for respiratory distress. Patient noted to have decreased respiratory effort and was ventilated with the [id number]. Patient was bradycardic, hypotensive, and hypoxic with minimal gag reflex. Patient was getting progressively more altered with worsening respiratory distress. Patient subsequently was emergently intubated, central line was placed, and patient was transferred to ICU for further management. Prior ABG on 100% nonrebreathing mask revealed severe hypoxia EEG on 04/27 revealed generalized cerebral dysfunction of moderate degree. Focal seizure emanating from the right anterior and mid temporal area. EEG on 04/28 revealed generalized encephalopathy of moderate to severe degree and right temporal focal dysfunction with epileptiform tendency. Neurologist closely followed. Patient remained comatose with metabolic encephalopathy . Per neurologist, patient likely had status epilepticus, given current clinical presentation. Versed drip was stopped. Patient subsequently undergone CT scan of the brain, which revealed no acute intracranial findings. Mild periventricular white matter hypodensity, likely related to chronic small vessel disease changes. Mild generalized cerebral parenchymal volume loss, unchanged. Senior Paralegal followed.. Patient had elevated troponin Per python web developer elevated troponin was likely due to septic shock and demand ischemia. Echocardiogram revealed preserved ejection fraction of 60-65%. No evidence of wall motion abnormality. Patient was hypotensive. Patient initially started on midodrine and fluid challenges provided as needed, however blood pressure remained low, and patient started on pressors to keep mean arterial blood pressure above 65. Hemodynamic status was closely monitored. Site Identification Specialist closely followed. Ventilator support and pulmonary toilet provided. Patient was follow-up with a ABG and chest x-ray. Ventilator setting titrated based on ABG results. Patient initially started on Versed drip, which was hold later as by neurologist. Frequent neuro-checks were done. Seizure precaution maintained. Patient was continued on Keppra and Dilantin. Patient was followed up with series of EEG. EEG on 04/29 revealed encephalopathy of severe degree. EEG on 04/30 revealed encephalopathy of severe degree. Manufacturing Plant Technician followed up with management of blood sugar. Hemoglobin A1c was at goal -5.8. Blood sugar was managed with sliding scale of insulin as per asp net developer recommendation. No need for basal insulin. GI specialist followed. Supportive care provided Antiemetic provided as needed. Per GI specialist, vomiting was likely due to combination of diabetes mellitus and marijuana abuse. He recommended tighter blood sugar control. Hemoglobin and hematocrit were closely monitored with goal to keep hemoglobin above 7. Anemia workup revealed evidence of chronic disease. Stable B12 and folate level. Patient undergone transfusion of 3 units of packed red blood cells, while in the hospital. Stool for occult blood was one-time positive and one-time negative. CEA with mild elevation -5.4. Patient was not stable for GI procedure at this time. Abdominal ultrasound revealed surgically absent gallbladder. Mildly dilated common bile duct, likely related to postcholecystectomy state. Trace ascites. LFT where trending up. AST from initial 25 up to 122, ALT remained stable. Serum protein electrophoresis stable. CODE BLUE was called on 05/02. Patient had bradycardia and subsequently asystolic arrest. ACLS protocol initiated, patient received epinephrine x2. Patient had subsequently return of pulses. Patient at that time was already on maximum dose of pressors. Patient returned to mechanical ventilator. Renal parameters worsened . Per electrical tech/project manager, patient had acute on chronic renal failure. Subsequently, temporary hemodialysis catheter was placed on 05/03 by interventional radiologist and patient was dialyzed on the same day. Patient was hypotensive. Fluid challenges provided as needed with albumin boluses. Patient started on midodrine. Another CODE BLUE was called on 05/04 , after patient became asystolic. Patient received epinephrine, calcium bicarbonate. After multiple rounds of compression, patient regained palpable pulses for few minutes only, which then disappeared. Again again after several rounds of compressions and epinephrine patient regained pulses. Patient was at that time on two pressors at the maximum doses. Condition was discussed with the patient's daughter over the phone, who relied to emergency room physician, that she will discuss with family the patient CODE STATUS. Patient mental status was getting progressively worse. He was in deep coma . Neurologist ordered EEG to confirm absence of brain activity. Another CODE BLUE was called on 05/05. Patient was at this time on three different pressors at maximum doses. ABG revealed respiratory acidosis , AC rate was increased . Patient had multiply , total of 7 , codes during this event. EEG was done at this time and revealed absence of electrical cerebral activity After seven codes and rhythm changing to pulseless electrical activity, it was clear that further resuscitation efforts would be futile. Patient demonstrated cardiopulmonary unresponsiveness. Resuscitative efforts were stopped , and patient was pronounced at 11:30 on . Cause of : cardiopulmonary arrest. FINAL DIAGNOSES: Status post multiple cardiopulmonary arrest Septic shock Acute hypoxemic respiratory failure Acute on chronic renal failure Elevated troponin likely due to septic shock and demand ischemia Aspiration pneumonia Bilateral pneumonia Anoxic encephalopathy/brain Metabolic encephalopathy Generalized epileptic seizure Probably status epilepticus ARDS Diabetic nephropathy Diabetes mellitus Alcohol abuse with withdrawal Anemia of chronic disease Anemia due to alcohol withdrawal/myelosuppression History of hypertension Marijuana abuse I have been assigned to dictate discharge summary for this account. I was not involved in the patient's management. Valery Khan NP May 08, 2018 10:06
== END 2018-05-05 11:40 | disposition expired | DRG 53 ==
LOC: EDBD 23:25 → EMR 23:41 → 2E 04-25 03:02 → EDBEDREQ 04-25 14:49 → ICU 04-27 18:31
DX: G40.401 Other generalized epilepsy and epileptic syndromes, not intractable, with status epilepticus (principal); J96.01 Acute respiratory failure with hypoxia; R65.21 Severe sepsis with septic shock; J69.0 Pneumonitis due to inhalation of food and vomit; G93.41 Metabolic encephalopathy; G93.1 Anoxic brain damage, not elsewhere classified; A41.9 Sepsis, unspecified organism; F10.239 Alcohol dependence with withdrawal, unspecified; R00.0 Tachycardia, unspecified; I46.9 Cardiac arrest, cause unspecified; J80 Acute respiratory distress syndrome; N17.9 Acute kidney failure, unspecified; I12.9 Hypertensive chronic kidney disease with stage 1 through stage 4 chronic kidney disease, or unspecified chronic kidney disease; E11.22 Type 2 diabetes mellitus with diabetic chronic kidney disease; E11.65 Type 2 diabetes mellitus with hyperglycemia; N18.9 Chronic kidney disease, unspecified; D64.9 Anemia, unspecified; F12.10 Cannabis abuse, uncomplicated; I24.8 Other forms of acute ischemic heart disease
CPT/HCPCS: 36415; 36569; 36600; 70450; 71045; 74018; 76700; 76770; 76937; 80048; 80053; 80061; 80185; 80202; 80301; 80307; 80329; 81001; 82140; 82150; 82248; 82270; 82378; 82550; 82607; 82728; 82746; 82803; 82962; 82977; 83010; 83020; 83036; 83540; 83550; 83605; 83615; 83690; 83735; 83880; 84100; 84165; 84300; 84439; 84443; 84484; 84550; 85007; 85025; 85044; 85060; 85384; 85610; 85660; 85730; 86140; 86703; 86705; 86709; 86803; 86850; 86900; 86901; 86920; 87040; 87070; 87086; 87205; 87340; 89050; 92950; 93005; 93306; 94002; 94003; 94640; 95819; 96365; 96375; 96376; 99285; J1165; J1815; J2405; J2765; J7620; S5561